=== PATIENT | female | born 1945 | race Caucasian/White ===

== ENCOUNTER 2016-12-01 09:06 | Inpatient (IN) | payer OTHER ==
[2016-12-01] VITALS (63 sets, daily range): BP systolic 81–189; BP diastolic 24–160; PULSE 53–70; TEMP 34–37.7; O2SAT 93–100; BMI 39.0
[~2016-12-01] VITALS: Ht 170.2 cm; Wt 105.8 kg
[~2016-12-01 09:06] MED LIST changes: -AMIO200T4 PO; -B-CO1CAP17 PO; -CRD200 PO; -ESCI1TAB6 PO; -FURO20TA PO; -INSDGIPEN SC; -MIRT1TAB27 PO; -OSEL30CA PO; -PRLSR20 PO; -ROPI2TAB6 PO; -SPRIN/30 INH; -TPRSR25 PO; -UMEC1INH INH
[2016-12-01] MEDS ORDERED: SODIUM CHLORIDE 0.9% 500ML 500 ML IV STA (09:27)
[2016-12-01 09:38] LABS: BASO % 0.2 %; BASO ABS # 0.02 K/uL (0-0.2); COMPLETE YES; EOS % 0.8 %; HEMATOCRIT 37.6 % (37-47); IG% 0.4 %; LYMPH % 5.8 %; LYMPH ABS # 0.76 K/uL (1.2-3.4); MEAN CELL VOLUME 103.6 fL (80-100); MEAN CORPUSCULAR HEMOGLOBIN 32.2 pg (25-34); MEAN CORPUSCULAR HGB CONC 31.1 g/dl (32-36); MEAN PLATELET VOLUME 12.1 fL (7.4-10.4); MONO % 3.5 %; NEUT % 89.3 %; PLATELET COUNT 183 K/uL (130-400); RED BLOOD COUNT 3.63 M/uL (4.2-5.4); WHITE BLOOD COUNT 13.12 K/uL (4.8-10.8)
--- NOTE | 2016-12-01 09:43 | DIAGNOSTIC IMAGING REPORT ---
CHEST ONE VIEW PORTABLE CLINICAL HISTORY: Shortness of breath. Unresponsive. COMPARISON STUDY: Chest radiograph October 23, 2016. FINDINGS: Moderate cardiomegaly is unchanged. This extensive atherosclerotic calcification of the thoracic aorta. No pneumothorax is present. There are suspected small bilateral pleural effusions. Bilateral perihilar airspace opacities have developed. IMPRESSION: Interval development of bilateral perihilar opacities. Pulmonary edema is favored although bilateral pneumonia could appear similar. Electronically signed by: Charlie Hayden M.D. 12/01/2016 9:41 AM Dictated Date/Time: 12/01/2016 9:40 AM
[2016-12-01 09:46] LABS: INR 1.1 (0.9-1.1); PARTIAL THROMBOPLASTIN RATIO 1.1; PROTHROMBIN TIME (PATIENT) 11.3 SECONDS (9.0-12.0)
--- NOTE | 2016-12-01 09:47 | EMERGENCY ROOM VISIT NOTE ---
History Report prepared by Benito: Fran Henao Under the Supervision of: Dr. Rosy Lopez D.O. First contact with patient: 09:08 Stated Complaint: UNRESPONSIVE History of Present Illness The patient is a 71 year old female who presents to the Emergency Room via ALS after being found unresponsive at [facility]. The patient was woken up for her dialysis treatment that she was scheduled for today when she kept saying she felt lethargic. Per nursing staff, they noted that she was awake but wasn't talking much, seemed tired, and didn't want to eat. They laid her down to take a nap before dialysis when they noticed a change in her breathing. Her pulse ox at that time was 40% and the patient began to hyperventilate. They put her on a non-rebreather mask and an AED and her stats began to improve. They called Dr. Jay and discussed sending her to the hospital eventually, but after this episode they called the ambulance immediately. Per staff and EMS, the patient was unresponsive and has been making a persistent gurgling noise. Per EMS, the patient's sugar was 140 when she was en route to the ED. The patient's HPI is limited due to unresponsiveness. Source of History: EMS History Limited By: other (unresponsiveness) Onset: 5 hours ago Position: other (global) Note: Other associated symptoms: gurgling noise Review of Systems The ROS is limited due to unresponsiveness. Past Medical & Surgical Medical Problems: (1) Altered mental status (2) CAD (coronary artery disease) (3) Cellulitis of left lower extremity without foot (4) COPD (chronic obstructive pulmonary disease) (5) Depression (6) Diabetes mellitus type 2 in obese (7) Diastolic CHF (8) Dyslipidemia (9) Elevated troponin (10) End stage renal disease (11) End-stage renal disease on hemodialysis (12) ESRD (end stage renal disease) (13) Gout (14) HTN (hypertension) (15) Hyperkalemia (16) Hypothyroidism (17) Loss of consciousness (18) PAF (paroxysmal atrial fibrillation) (19) Pneumonia (20) Recurrent epistaxis (21) Sepsis (22) Syncope (23) Syncope (24) UTI (urinary tract infection) Surgical Problems: (1) bilat ankle surgery (2) Hernia, abdominal (3) History of appendectomy (4) Nasal septoplasty (5) Repair of rotator cuff by suture (6) right elbow surgery Family History Cancer Heart disease Hypertension Social History Smoking Status: Former Smoker Alcohol Use: none Drug Use: none Marital Status: Housing Status: intermediate Occupation Status: retired, disabled Current/Historical Medications Scheduled Allopurinol (Zyloprim), 100 MG PO DAILY Amino Acids (Periflex Lq Pku), 30 ML PO BID Aspirin (Aspirin 81), 81 MG PO DAILY Atorvastatin (Lipitor), 40 MG PO HS Calcium Carbonate (Tums), 500 MG PO HS Carvedilol (Coreg), 6.25 MG PO BID Clopidogrel (Plavix), 75 MG PO DAILY Docusate Sodium (Docusate Sodium), 100 MG PO BID Ergocalciferol (Vitamin D 25681 Unit), 50,000 UNIT PO WK Escitalopram (Lexapro), 10 MG PO HS Furosemide (Lasix), 30 MG PO BID Gabapentin (Neurontin), Unknown Dose PO Q8 Guaifenesin La (Guaifenesin Er), 600 MG PO Q12H Hydralazine Hcl (Apresoline), 50 MG PO TID Insulin Glargine (Lantus Solostar), 8 UNITS SC Q12 Insulin Lispro (Humalog), SC ACHS Levothyroxine Sodium (Synthroid), 75 MCG PO DAILY Omeprazole (Prilosec), 2 CAP PO DAILY Oseltamivir Phosphate (Tamiflu), 2 CAP PO 3XWK Polyethylene Glycol 3350 (Miralax), 17 GM PO BID Prednisone Tab (Prednisone), 10 MG PO DAILY Psyllium (Metamucil), 2 CAP PO TID Ropinirole (Requip), 2 MG PO HS Sevelamer Carbonate (Renvela), 1,600 MG PO HS Sevelamer Carbonate (Renvela), 3,200 MG PO TIDM Tiotropium [place] (Spiriva Handihaler), 1 CAP INH DAILY Vitamin B Cmplx/Vitc/Folic Ac (Nephrocaps), 1 CAP PO DAILY Scheduled PRN Acetaminophen (Tylenol), 650 MG PO Q6H PRN for Pain or Fever Albuterol Sulfate (Albuterol Sulfate), 1 VIAL NEB Q6H PRN for SOB/Wheezing Dextrose (Diabetic Use) (Insta-Glucose), 1 APPLN PO UD PRN for HYPOGLYCEMIA PROTOCOL Glucagon (Glucagon Emergency Kit), 1 APPLN IM UD PRN for HYPOGLYCEMIA PROTOCOL Ondansetron Hcl (Zofran), 4 MG PO Q6H PRN for Nausea or Vomiting Oxygen (Oxygen), 2 LITERS NA UD PRN for SOB/RESPIRATORY DISTRESS Allergies Coded Allergies: Amoxicillin (Verified Allergy, Intermediate, HIVES, 10/26/16) HAS TOLERATED CEFEPIME, KEFLEX, AND ROCEPHIN IN PAST ADMISSIONS Clavulanic Acid (Verified Allergy, Intermediate, HIVES, 10/26/16) hives NSAIDs (Unverified Allergy, Unknown, UNKNOWN, 10/26/16) JARET Inhibitors (Verified Adverse Reaction, Unknown, HYPERKALEMIA, 10/26/16 ) 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 Physical Exam Vital Signs Date Time Temp Pulse Resp B/P Pulse Ox O2 Delivery O2 Flow Rate FiO2 12/01/16 12:56 53 12/01/16 12:55 54 17 91/64 100 BiPAP 12/01/16 12:44 53 18 76/50 98 BiPAP 12/01/16 12:30 53 16 101/52 98 BiPAP 12/01/16 11:40 52 18 99/54 88 BiPAP 12/01/16 11:25 50 19 74/52 94 BiPAP 12/01/16 11:15 50 20 79/45 95 BiPAP 12/01/16 11:00 49 21 91/51 97 BiPAP 12/01/16 10:52 50 20 70/29 95 BiPAP 12/01/16 10:40 53 93 60 12/01/16 10:40 50 19 81/38 94 12/01/16 10:35 51 20 94 12/01/16 10:33 BiPAP 12/01/16 10:31 80 18 78/36 95 Nasal Cannula 2.0 12/01/16 10:20 58 19 86/47 94 12/01/16 10:00 80/41 12/01/16 09:51 57 19 93 12/01/16 09:45 59 20 75/51 92 Nasal Cannula 2.0 12/01/16 09:45 75/57 12/01/16 09:43 75/51 12/01/16 09:36 56 20 90 12/01/16 09:29 58/37 12/01/16 09:25 34.1 57 16 75/33 94 Nasal Cannula 2.0 12/01/16 09:24 75/33 12/01/16 09:22 93 Nasal Cannula 2.0 12/01/16 09:21 58 20 93 12/01/16 09:16 61 12/01/16 09:12 70/35 12/01/16 09:10 66 23 70/35 88 Room Air Physical Exam GENERAL: Appears obtunded, Gurgling respirations, Won't open eyes but wakes to loud, verbal, and painful stimuli, will not follow commands. HEENT: Head - normocephalic and atraumatic Pupils are equal, round, 3 mm and sluggishly reactive to light. Extraocular eye muscles are intact, and sclera are anicteric. Nose - moist nasal mucosa without discharge. Mouth - moist buccal mucosa. Oropharynx is nonerythematous and there is no tonsillar exudate or edema noted. Neck: Supple Heart: Bradycardic rate and regular rhythm. There is a normal S1 and S2 with no murmurs, clicks, or gallops appreciated. Lungs: Diffuse rales in all capellan. Abdomen: Moderate distention, periumbilical hernia that is easily reduced. There is no guarding, rigidity, or rebound noted. Extremities: No evidence of cyanosis, clubbing, 1 plus edema bilaterally. Peripheral pulses were thready. Skin: warm and dry with good turgor and no rashes. Medical Decision & Procedures ER Provider Diagnostic Interpretation: X-ray results as stated below per interpretation by the radiologist and reviewed by me: CHEST ONE VIEW PORTABLE CLINICAL HISTORY: Shortness of breath. Unresponsive. COMPARISON STUDY: Chest radiograph October 23, 2016. FINDINGS: Moderate cardiomegaly is unchanged. This extensive atherosclerotic calcification of the thoracic aorta. No pneumothorax is present. There are suspected small bilateral pleural effusions. Bilateral perihilar airspace opacities have developed. IMPRESSION: Interval development of bilateral perihilar opacities. Pulmonary edema is favored although bilateral pneumonia could appear similar. Electronically signed by: Charlie Hayden M.D. 12/01/2016 9:41 AM Dictated Date/Time: 12/01/2016 9:[address]AST CT DOSE: 1074.96 mGy.cm HISTORY: unresponsive TECHNIQUE: Multiaxial CT images of the head were performed without the use of intravenous contrast. Automated exposure control was utilized for this study. Comparison: Head CT 10/23/2016. Findings: Chronic complete opacification of the left maxillary sinus with hyperdense material. There are few opacified bilateral mastoid air cells, unchanged. Nasal septal defect is again noted. The calvarium and skull base are intact. There is no mass, hematoma, midline shift, acute infarct. White matter hypodensity is nonspecific but suggestive of microvascular ischemic change. The ventricles and sulci demonstrate mild age-related involutional changes. Small old lacunar infarcts within the cerebellar hemispheres remain unchanged. Impression: No significant change compared to the prior study. No acute intracranial abnormality. Electronically signed by: Bo Argueta M.D. 12/01/2016 10:24 AM Dictated Date/Time: 12/01/2016 10:21 AM CHEST ONE VIEW PORTABLE HISTORY: Central line placement COMPARISON: Chest 12/01/2016. FINDINGS: Right jugular central venous catheter terminates in the expected location of the SVC. No pneumothorax. Cardiomegaly and bilateral perihilar airspace opacities persist. Suspect a trace left pleural effusion. Calcified thoracic aorta is again noted. IMPRESSION: 1. The right jugular central venous catheter terminates at the expected location of the SVC. No pneumothorax. 2. Cardiomegaly and bilateral perihilar airspace opacities persist. Electronically signed by: Bo Argueta M.D. 12/01/2016 1:47 PM Dictated Date/Time: 12/01/2016 1:45 PM Laboratory Results 12/01/16 08:48 Red Blood Count 3.63, Mean Corpuscular Volume 103.6, Mean Corpuscular Hemoglobin 32.2, Mean Corpuscular Hemoglobin Concent 31.1, Mean Platelet Volume 12.1, Neutrophils (%) (Auto) 89.3, Lymphocytes (%) (Auto) 5.8, Monocytes (%) ( Auto) 3.5, Eosinophils (%) (Auto) 0.8, Basophils (%) (Auto) 0.2, Neutrophils # ( Auto) 11.72, Lymphocytes # (Auto) 0.76, Monocytes # (Auto) 0.46, Eosinophils # ( Auto) 0.11, Basophils # (Auto) 0.02 12/01/16 08:48 Test 12/01/16 08:48 12/01/16 09:55 12/01/16 10:02 12/01/16 12:30 White Blood Count 13.12 K/uL (4.8-10.8) Red Blood Count 3.63 M/uL (4.2-5.4) Hemoglobin 11.7 g/dL (12.0-16.0) Hematocrit 37.6 % (37-47) Mean Corpuscular Volume 103.6 fL (80-100) Mean Corpuscular Hemoglobin 32.2 pg (25-34) Mean Corpuscular Hemoglobin Concent 31.1 g/dl (32-36) Platelet Count 183 K/uL (130-400) Mean Platelet Volume 12.1 fL (7.4-10.4) Neutrophils (%) (Auto) 89.3 % Lymphocytes (%) (Auto) 5.8 % Monocytes (%) (Auto) 3.5 % Eosinophils (%) (Auto) 0.8 % Basophils (%) (Auto) 0.2 % Neutrophils # (Auto) 11.72 K/uL (1.4-6.5) Lymphocytes # (Auto) 0.76 K/uL (1.2-3.4) Monocytes # (Auto) 0.46 K/uL (0.11-0.59) Eosinophils # (Auto) 0.11 K/uL (0-0.5) Basophils # (Auto) 0.02 K/uL (0-0.2) RDW Standard Deviation 63.4 fL (36.4-46.3) RDW Coefficient of Variation 16.9 % (11.5-14.5) Immature Granulocyte % (Auto) 0.4 % Immature Granulocyte # (Auto) 0.05 K/uL (0.00-0.02) Nucleated RBC Absolute Count (auto) 0.08 K/uL (0-0) Nucleated Red Blood Cells % 0.6 % Prothrombin Time 11.3 SECONDS (9.0-12.0) Prothromb Time International Ratio 1.1 (0.9-1.1) Activated Partial Thromboplast Time 29.4 SECONDS (21.0-31.0) Partial Thromboplastin Ratio 1.1 Anion Gap 16.0 mmol/L (3-11) Est Creatinine Clear Calc Drug Dose 11.2 ml/min Estimated GFR () 7.8 Estimated GFR (Non- 6.8 BUN/Creatinine Ratio 14.9 (10-20) Calcium Level 8.6 mg/dl (8.5-10.1) Total Bilirubin 0.6 mg/dl (0.2-1) Direct Bilirubin 0.1 mg/dl (0-0.2) Aspartate Amino Transf (AST/SGOT) 19 U/L (15-37) Alanine Aminotransferase (ALT/SGPT) 16 U/L (12-78) Alkaline Phosphatase 131 U/L (45-117) Total Creatine Kinase 29 U/L (26-192) Creatine Kinase MB 2.9 ng/ml (0.5-3.6) Creatine Kinase MB Ratio 10.0 (0-3.0) Troponin I 0.033 ng/ml (0-0.045) Pro-B-Type Natriuretic Peptide 19340 pg/ml (0-900) Total Protein 6.6 gm/dl (6.4-8.2) Albumin 2.5 gm/dl (3.4-5.0) Random Cortisol 23.98 mcg/dl Bedside Lactic Acid Venous 2.22 mmol/L (0.90-1.70) Arterial Blood pH 7.18 (7.35-7.45) Arterial Blood Partial Pressure CO2 64 mmHg (35-46) Arterial Blood Partial Pressure O2 49 mm/Hg (80-95) Arterial Blood HCO3 23 mmol/L (19-24) Arterial Blood Oxygen Saturation 75.7 % (90-95) Arterial Blood Base Excess -5.8 mEq/L (-9-1.8) Arterial Blood Gas Delivery 2L John Test POS (POS) Influenza Type A (RT-PCR) Neg for Influ A (NEG) Influenza Type B (RT-PCR) Neg for Influ B (NEG) Date/Time Source Procedure Growth Status 12/01/16 00:00 Nasal MRSA DNA Surveillance Screen - Final Specimen Positive for MRSA by DNA Probe Complete Laboratory results per my review. Medications Administered Medications (Trade) Dose Ordered Sig/Gelacio Route Start Time Stop Time Status Last Admin Dose Admin Sodium Chloride 500 ml @ 999 mls/hr Q31M STAT IV 12/01/16 09:27 12/01/16 09:57 DC 12/01/16 09:40 999 MLS/HR Norepinephrine Bitartrate/ Dextrose (Levophed Inj/ D5W 500ml) 508 ml @ 0 mls/hr Q0M STAT IV 12/01/16 10:27 12/01/16 10:29 DC 12/01/16 10:45 8 MLS/HR Piperacillin Sod/ Tazobactam Sod (Zosyn Iv) 4.5 gm NOW STAT IV 12/01/16 10:28 12/01/16 10:30 DC 12/01/16 10:33 4.5 GM Levofloxacin 750 mg 750 mg NOW ONCE IV 12/01/16 10:30 12/01/16 10:31 DC 12/01/16 12:37 750 MG Vancomycin HCl/ Sodium Chloride (Vancomycin Inj/ Nss 500ml) 540 ml @ 200 mls/hr TODAY@1200 ONCE IV 12/01/16 12:00 12/01/16 14:41 DC 12/01/16 14:23 200 MLS/HR Procedure Medications: Sodium chloride, levophed drip; IV Zosyn; IV Levaquin ECG Indication: other Rate (beats per minute): 59 Rhythm: sinus bradycardia Findings: 1st degree AV block, no acute ischemic change, no ectopy Change: no significant change (when compared to EKG from October 2016) ED Course 0920: Past medical records reviewed. The patient was evaluated emergently in room B1. A complete history and physical exam was performed. 0925: At this time, the counter caser spoke with [facility] and the patient is a full code status. The patient was found to be significantly hypotensive. A septic protocol was performed. A chest x-ray was obtained. The patient does not produce urine. 0927: Ordered NSS 500 ml @ 999 mls/hr IV. She had a second IV lock initiated and labs were drawn as above including blood cultures. 0950: Despite a small fluid bolus, the patient is still hypotensive at this time. She has an elevated lactic acid. The patient was placed on BiPAP 1010: At this time, I discussed the patient's case with [facility] -nephrologyCatalina Cooln and he agreed with pressers. It seems that the patient is most likely suffering from septic shock. This would account for her hypotension. the patient will be started on a Levophed drip. 1025: At this time, the patient was reevaluated. Her rectal temperature was 34. The concern for sepsis increased at this point. The patient was given IV Levaquin and Zosyn. She was getting put on BiPap and given a bear hugger. An ABG was obtained which showed significant respiratory acidosis. 1103: The patient's blood pressure was coming up this time on the pressor. At this time, I discussed the patient's case with Dr. Reina - Certified Travel Counselor EMILY and he agreed to accept the patient for further evaluation. Dr. Reina and I saw the patient bedside together. The patient was more responsive to Dr. Reina at this time then she was to myself earlier. He asked the patient if she wanted an A-Line and she nodded ,"yes," and he asked if she wanted to be intubated to which she shook her head, "no." 1305: At this time, I discussed the patient's case with Dr. Nguyen - Hospitalist EMILY and he agreed to place and the admission order Medical Decision The patient is a 71 year old female who presents to the ED after being found unresponsive. Differential diagnosis includes hypercarbic respiratory failure, metabolic encephalopathy, congestive heart failure, intracranial process, hypoglycemia. Labs: White count 13.1, hemoglobin 11.7, lactic 2.2., BNPU 23034, troponin 0.033 , normal LFTs, BUN 87, creatine 5.8, potassium 4, normal coags, pH 7.18 PCO2 64 , PO2 49, bicarbonate 23. Suggestive of significant respiratory acidosis. The patient has previous episodes of unresponsiveness over the past couple of years. However, the patient is fluid overloaded requiring dialysis however she is hypotensive. I believe she may be suffering from septic shock as a result of bilateral pulmonary opacities which could be consistent with pneumonia. She has a mildly elevated white blood cell count, she's hypothermic, and she has an elevated lactic acid. The patient is currently on antibiotics and pressors. She is receiving BiPAP at this time. Dr. Reina is at the bedside placing in a line. The patient will be admitted to the ICU. Consults Time Called: 1005 Consulting Physician: Dr. Palumbo - Internal Medicine Darlene Returned Call: 1012 At this time, I discussed the patient's case with Dr. Palumbo and he agreed with pressers. Additional Consults: Time Called: 1055 Consulted Physician: Dr. Reina Returned Call: 1103 Additional Comments: At this time, I discussed the patient's case with Dr. Reina - Certified Travel Counselor [facility] [place] and he agreed to accept the patient for further evaluation. Dr. Reina and I saw the patient bedside together. The patient was more responsive to Dr. Reina at this time then she was to myself earlier. He asked the patient if she wanted an A-Line and she said ,"yes," and he asked if she wanted to be intubated to which she replied, "no." Time Called: 1300 Consulted Physician: Dr. Nguyen - Hospitalist [facility] – [place] Returned Call: 1305 Additional Comments: At this time, I discussed the patient's case with Dr. Nguyen and he agreed to accept the patient for further evaluation. Impression Primary Impression: Respiratory failure Additional Impression: Sepsis Critical Care I have personally spent greater than 75 minutes of critical care time in the direct management of this patient. This includes bedside care, interpretation of diagnostic studies, and testing, discussion with consultants, patient, and family members, and other required patient management activities. This 75 minutes is in excess of all separately billable procedures. Scribe Attestation The scribe's documentation has been prepared under my direction and personally reviewed by me in its entirety. I confirm that the note above accurately reflects all work, treatment, procedures, and medical decision making performed by me. Departure Information Dispostion Being Evaluated By Hospitalist Referrals [facility] (PCP) Problem Qualifiers
[2016-12-01 09:53] LABS: BUN/CREATININE RATIO 14.9 (10-20); CALCIUM 8.6 mg/dl (8.5-10.1)
[2016-12-01 09:54] LABS: CREATININE 5.8 mg/dl (0.60-1.20)
[2016-12-01] MEDS ORDERED: INSDGIPEN SC (10:07)
[2016-12-01] MEDS ORDERED: FURO20TA PO (10:07)
[2016-12-01] MEDS ORDERED: PRLSR20 PO (10:07)
[2016-12-01] MEDS ORDERED: B-CO1CAP17 PO (10:07)
[2016-12-01] MEDS ORDERED: SPRIN/30 INH (10:07)
[2016-12-01] MEDS ORDERED: OSEL30CA PO (10:07)
[2016-12-01] MEDS ORDERED: ROPI2TAB6 PO (10:07)
[2016-12-01] MEDS ORDERED: SEVE800T7 PO (10:12)
[2016-12-01 10:25] LABS: ARTERIAL BLD GAS O2 SATURATION 75.7 % (90-95); ARTERIAL BLOOD GAS BASE EXCESS -5.8 mEq/L (-9-1.8); ARTERIAL BLOOD GAS HCO3 23 mmol/L (19-24); ARTERIAL BLOOD GAS PO2 49 mm/Hg (80-95)
--- NOTE | 2016-12-01 10:26 | DIAGNOSTIC IMAGING REPORT ---
HEAD CT NONCONTRAST CT DOSE: 1074.96 mGy.cm HISTORY: unresponsive TECHNIQUE: Multiaxial CT images of the head were performed without the use of intravenous contrast. Automated exposure control was utilized for this study. Comparison: Head CT 10/23/2016. Findings: Chronic complete opacification of the left maxillary sinus with hyperdense material. There are few opacified bilateral mastoid air cells, unchanged. Nasal septal defect is again noted. The calvarium and skull base are intact. There is no mass, hematoma, midline shift, acute infarct. White matter hypodensity is nonspecific but suggestive of microvascular ischemic change. The ventricles and sulci demonstrate mild age-related involutional changes. Small old lacunar infarcts within the cerebellar hemispheres remain unchanged. Impression: No significant change compared to the prior study. No acute intracranial abnormality. Electronically signed by: Bo Argueta M.D. 12/01/2016 10:24 AM Dictated Date/Time: 12/01/2016 10:21 AM
[2016-12-01 10:27] LABS: ALLEN TEST POS (POS); O2 ADMINISTRATION 2L
[2016-12-01] MEDS ORDERED: NOREPINEPHRINE BIT INJ 8 MG in DEXTROSE 5% 500ML 500 ML IV STA (10:27)
[2016-12-01] MEDS ORDERED: PIPERACILLIN/TAZOBACTAM 4.5 GM/100ML D5W IV STA (10:28)
[2016-12-01 10:29] LABS: ARTERIAL BLOOD GAS pH 7.18 (7.35-7.45)
[2016-12-01] MEDS ORDERED: LEVAQUIN 750MG / 150ML D5W IV ONE (10:30)
[2016-12-01] MEDS ORDERED: VANCOMYCIN INJ 2,000 MG in SODIUM CHLORIDE 0.9% 250ML 250 ML IV STA (11:08)
[2016-12-01] MEDS ORDERED: VANCOMYCIN INJ 2,000 MG in SODIUM CHLORIDE 0.9% 500ML 500 ML IV ONE (12:00)
--- NOTE | 2016-12-01 13:49 | DIAGNOSTIC IMAGING REPORT ---
CHEST ONE VIEW PORTABLE HISTORY: Central line placement COMPARISON: Chest 12/01/2016. FINDINGS: Right jugular central venous catheter terminates in the expected location of the SVC. No pneumothorax. Cardiomegaly and bilateral perihilar airspace opacities persist. Suspect a trace left pleural effusion. Calcified thoracic aorta is again noted. IMPRESSION: 1. The right jugular central venous catheter terminates at the expected location of the SVC. No pneumothorax. 2. Cardiomegaly and bilateral perihilar airspace opacities persist. Electronically signed by: Bo Argueta M.D. 12/01/2016 1:47 PM Dictated Date/Time: 12/01/2016 1:45 PM
--- NOTE | 2016-12-01 14:08 | History and Physical ---
History & Physical Date & Time of Service: Dec 01, 2016 at 13:44 Chief Complaint: Unresponsive Primary Care Physician: Charity Michael History of Present Illness Source: patient, hospital records Ms. Colmenares is a 71yo lady with the below listed history who presented to the ED this morning after being [facility] unresponsive at her [facility]. Apparently she complained of not feeling well this morning, went for a nap and was later found in her room unresponsive. Her initial work up in the ED included an ABG showing pH 7.18, pCO2 64, and pO2 49 while on 2lpm oxygen. CXR shows bilateral perihilar opacities that Radiology is reading as favoring pulmonary edema, though could also be bilateral pneumonia. She was also noted to be hypotensive and has been started on vasopressors. She was evaluated by CCM in the ED and started on empiric broad spectrum abx and is being admitted to the ICU for further management. Past Medical/Surgical History Medical Problems: (1) CAD (coronary artery disease) Permanent Comment: s/p LAD stent 2011 Status: Chronic (2) Cellulitis of left lower extremity without foot Status: Resolved (3) COPD (chronic obstructive pulmonary disease) Permanent Comment: on chronic prednisone Status: Chronic (4) Depression Status: Chronic (5) Diabetes mellitus type 2 in obese Status: Chronic (6) Diastolic CHF Permanent Comment: echo 05/31/16 LVEF 55-60% with mild concentric L ventricular hypertrophy Status: Chronic (7) Dyslipidemia Status: Chronic (8) End-stage renal disease on hemodialysis Status: Chronic (9) Gout Status: Chronic (10) HTN (hypertension) Status: Chronic (11) Hyperkalemia Status: Resolved (12) Hypothyroidism Status: Chronic (13) Loss of consciousness Status: Resolved (14) PAF (paroxysmal atrial fibrillation) Status: Chronic (15) Recurrent epistaxis Status: Resolved Surgical Problems: (1) bilat ankle surgery Status: Resolved (2) Hernia, abdominal Status: Resolved (3) History of appendectomy Status: Resolved (4) Nasal septoplasty Status: Resolved (5) Repair of rotator cuff by suture Status: Resolved (6) right elbow surgery Status: Resolved Family History Cancer Heart disease Hypertension Social History Smoking Status: Former Smoker Drug Use: none Marital Status: Housing status: prison Occupational Status: retired, disabled Immunizations History of Influenza Vaccine: Yes Influenza Vaccine Date: Nov 22, 2012 History of Tetanus Vaccine?: UTD Tetanus Immunization Date: Nov 25, 2012 History of Pneumococcal: Yes Pneumococcal Date: Nov 25, 2012 History of Hepatitis B Vaccine: No Multi-Drug Resistant Organisms History of MDRO: Yes Type of MDRO: MRSA Allergies Coded Allergies: Amoxicillin (Verified Allergy, Intermediate, HIVES, 10/26/16) HAS TOLERATED CEFEPIME, KEFLEX, AND ROCEPHIN IN PAST ADMISSIONS Clavulanic Acid (Verified Allergy, Intermediate, HIVES, 10/26/16) hives NSAIDs (Unverified Allergy, Unknown, UNKNOWN, 10/26/16) JARET Inhibitors (Verified Adverse Reaction, Unknown, HYPERKALEMIA, 10/26/16 ) 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 Home Medications Scheduled Allopurinol (Zyloprim), 100 MG PO DAILY Amino Acids (Periflex Lq Pku), 30 ML PO BID Aspirin (Aspirin 81), 81 MG PO DAILY Atorvastatin (Lipitor), 40 MG PO HS Calcium Carbonate (Tums), 500 MG PO HS Carvedilol (Coreg), 6.25 MG PO BID Clopidogrel (Plavix), 75 MG PO DAILY Docusate Sodium (Docusate Sodium), 100 MG PO BID Ergocalciferol (Vitamin D 83971 Unit), 50,000 UNIT PO WK Escitalopram (Lexapro), 10 MG PO HS Furosemide (Lasix), 30 MG PO BID Gabapentin (Neurontin), Unknown Dose PO Q8 Guaifenesin La (Guaifenesin Er), 600 MG PO Q12H Hydralazine Hcl (Apresoline), 50 MG PO TID Insulin Glargine (Lantus Solostar), 8 UNITS SC Q12 Insulin Lispro (Humalog), SC ACHS Levothyroxine Sodium (Synthroid), 75 MCG PO DAILY Omeprazole (Prilosec), 2 CAP PO DAILY Oseltamivir Phosphate (Tamiflu), 2 CAP PO 3XWK Polyethylene Glycol 3350 (Miralax), 17 GM PO BID Prednisone Tab (Prednisone), 10 MG PO DAILY Psyllium (Metamucil), 2 CAP PO TID Ropinirole (Requip), 2 MG PO HS Sevelamer Carbonate (Renvela), 1,600 MG PO HS Sevelamer Carbonate (Renvela), 3,200 MG PO TIDM Tiotropium [place] (Spiriva Handihaler), 1 CAP INH DAILY Vitamin B Cmplx/Vitc/Folic Ac (Nephrocaps), 1 CAP PO DAILY Scheduled PRN Acetaminophen (Tylenol), 650 MG PO Q6H PRN for Pain or Fever Albuterol Sulfate (Albuterol Sulfate), 1 VIAL NEB Q6H PRN for SOB/Wheezing Dextrose (Diabetic Use) (Insta-Glucose), 1 APPLN PO UD PRN for HYPOGLYCEMIA PROTOCOL Glucagon (Glucagon Emergency Kit), 1 APPLN IM UD PRN for HYPOGLYCEMIA PROTOCOL Ondansetron Hcl (Zofran), 4 MG PO Q6H PRN for Nausea or Vomiting Oxygen (Oxygen), 2 LITERS NA UD PRN for SOB/RESPIRATORY DISTRESS Review of Systems Unable to obtain, patient is obtunded. Physical Exam Vital Signs Date Time Temp Pulse Resp B/P Pulse Ox O2 Delivery O2 Flow Rate FiO2 12/01/16 12:56 53 12/01/16 12:55 54 17 91/64 100 BiPAP 12/01/16 12:44 53 18 76/50 98 BiPAP 12/01/16 12:30 53 16 101/52 98 BiPAP 12/01/16 11:40 52 18 99/54 88 BiPAP 12/01/16 11:25 50 19 74/52 94 BiPAP 12/01/16 11:15 50 20 79/45 95 BiPAP 12/01/16 11:00 49 21 91/51 97 BiPAP 12/01/16 10:52 50 20 70/29 95 BiPAP 12/01/16 10:40 53 93 60 12/01/16 10:40 50 19 81/38 94 12/01/16 10:35 51 20 94 12/01/16 10:33 BiPAP 12/01/16 10:31 80 18 78/36 95 Nasal Cannula 2.0 12/01/16 10:20 58 19 86/47 94 12/01/16 10:00 80/41 12/01/16 09:51 57 19 93 12/01/16 09:45 59 20 75/51 92 Nasal Cannula 2.0 12/01/16 09:45 75/57 12/01/16 09:43 75/51 12/01/16 09:36 56 20 90 12/01/16 09:29 58/37 12/01/16 09:25 34.1 57 16 75/33 94 Nasal Cannula 2.0 12/01/16 09:24 75/33 12/01/16 09:22 93 Nasal Cannula 2.0 12/01/16 09:21 58 20 93 12/01/16 09:16 61 12/01/16 09:12 70/35 12/01/16 09:10 66 23 70/35 88 Room Air General Appearance: no apparent distress Eyes: sclerae normal Respiratory/Chest: + pertinent finding (coarse breath sounds bilaterally) Cardiovascular: regular rate, rhythm Abdomen/GI: non tender, soft, + pertinent finding (large ventral hernia present ) Extremities/Musculoskelatal: no pedal edema Neurologic/Psych: + pertinent finding (opens eyes to voice, withdraws from painful stimuli, doesn't answer any questions and quickly falls back asleep) Skin: + pertinent finding (cool and dry) Diagnostics Laboratory Results Results Past 24 Hours Test 12/01/16 08:48 12/01/16 09:55 12/01/16 10:02 12/01/16 12:30 Range/Units White Blood Count 13.12 4.8-10.8 K/uL Red Blood Count 3.63 4.2-5.4 M/uL Hemoglobin 11.7 12.0-16.0 g/dL Hematocrit 37.6 37-47 % Mean Corpuscular Volume 103.6 80-100 fL Mean Corpuscular Hemoglobin 32.2 25-34 pg Mean Corpuscular Hemoglobin Concent 31.1 32-36 g/dl Platelet Count 183 130-400 K/uL Mean Platelet Volume 12.1 7.4-10.4 fL Neutrophils (%) (Auto) 89.3 % Lymphocytes (%) (Auto) 5.8 % Monocytes (%) (Auto) 3.5 % Eosinophils (%) (Auto) 0.8 % Basophils (%) (Auto) 0.2 % Neutrophils # (Auto) 11.72 1.4-6.5 K/uL Lymphocytes # (Auto) 0.76 1.2-3.4 K/uL Monocytes # (Auto) 0.46 0.11-0.59 K/uL Eosinophils # (Auto) 0.11 0-0.5 K/uL Basophils # (Auto) 0.02 0-0.2 K/uL RDW Standard Deviation 63.4 36.4-46.3 fL RDW Coefficient of Variation 16.9 11.5-14.5 % Immature Granulocyte % (Auto) 0.4 % Immature Granulocyte # (Auto) 0.05 0.00-0.02 K/uL Nucleated RBC Absolute Count (auto) 0.08 0-0 K/uL Nucleated Red Blood Cells % 0.6 % Prothrombin Time 11.3 9.0-12.0 SECONDS Prothromb Time International Ratio 1.1 0.9-1.1 Activated Partial Thromboplast Time 29.4 21.0-31.0 SECONDS Partial Thromboplastin Ratio 1.1 Sodium Level 133 136-145 mmol/L Potassium Level 4.0 3.5-5.1 mmol/L Chloride Level 97 98-107 mmol/L Carbon Dioxide Level 20 21-32 mmol/L Anion Gap 16.0 3-11 mmol/L Blood Urea Nitrogen 87 7-18 mg/dl Creatinine 5.80 0.60-1.20 mg/dl Est Creatinine Clear Calc Drug Dose 11.2 ml/min Estimated GFR () 7.8 Estimated GFR (Non- 6.8 BUN/Creatinine Ratio 14.9 10-20 Random Glucose 96 70-99 mg/dl Calcium Level 8.6 8.5-10.1 mg/dl Total Bilirubin 0.6 0.2-1 mg/dl Direct Bilirubin 0.1 0-0.2 mg/dl Aspartate Amino Transf (AST/SGOT) 19 15-37 U/L Alanine Aminotransferase (ALT/SGPT) 16 12-78 U/L Alkaline Phosphatase 131 45-117 U/L Total Creatine Kinase 29 26-192 U/L Creatine Kinase MB 2.9 0.5-3.6 ng/ml Creatine Kinase MB Ratio 10.0 0-3.0 Troponin I 0.033 0-0.045 ng/ml Pro-B-Type Natriuretic Peptide 27529 0-900 pg/ml Total Protein 6.6 6.4-8.2 gm/dl Albumin 2.5 3.4-5.0 gm/dl Random Cortisol 23.98 mcg/dl Bedside Lactic Acid Venous 2.22 0.90-1.70 mmol/L Arterial Blood pH 7.18 7.35-7.45 Arterial Blood Partial Pressure CO2 64 35-46 mmHg Arterial Blood Partial Pressure O2 49 80-95 mm/Hg Arterial Blood HCO3 23 19-24 mmol/L Arterial Blood Oxygen Saturation 75.7 90-95 % Arterial Blood Base Excess -5.8 -9-1.8 mEq/L Arterial Blood Gas Delivery 2L John Test POS POS Microbiology Results 12/01/16 Blood Culture, Received Pending 12/01/16 Blood Culture, Received Pending Diagnostic Radiology CHEST ONE VIEW PORTABLE CLINICAL HISTORY: Shortness of breath. Unresponsive. COMPARISON STUDY: Chest radiograph October 23, 2016. FINDINGS: Moderate cardiomegaly is unchanged. This extensive atherosclerotic calcification of the thoracic aorta. No pneumothorax is present. There are suspected small bilateral pleural effusions. Bilateral perihilar airspace opacities have developed. IMPRESSION: Interval development of bilateral perihilar opacities. Pulmonary edema is favored although bilateral pneumonia could appear similar. HEAD CT NONCONTRAST CT DOSE: 1074.96 mGy.cm HISTORY: unresponsive TECHNIQUE: Multiaxial CT images of the head were performed without the use of intravenous contrast. Automated exposure control was utilized for this study. Comparison: Head CT 10/23/2016. Findings: Chronic complete opacification of the left maxillary sinus with hyperdense material. There are few opacified bilateral mastoid air cells, unchanged. Nasal septal defect is again noted. The calvarium and skull base are intact. There is no mass, hematoma, midline shift, acute infarct. White matter hypodensity is nonspecific but suggestive of microvascular ischemic change. The ventricles and sulci demonstrate mild age-related involutional changes. Small old lacunar infarcts within the cerebellar hemispheres remain unchanged. Impression: No significant change compared to the prior study. No acute intracranial abnormality. EKG Sinus bradycardia with 1st degree A-V block Voltage criteria for left ventricular hypertrophy Nonspecific ST and T wave abnormality Prolonged QT Abnormal ECG When compared with ECG of 23-OCT-2016 05:10, No significant change No change from prior EKG Impression Assessment and Plan (1) Septic shock Status: Acute Assessment & Plan: This is likely due to HCAP. Broad spectrum abx started pending cultures. Vasopressors per [facility]. (2) Acute hypercapnic respiratory failure Status: Acute Assessment & Plan: In the setting of septic shock and probable HCAP. Patient does not want to be intubated. Will continue with BiPAP. (3) Encephalopathy Status: Acute Assessment & Plan: Metabolic due to sepsis as well as hypercapnea. Continue support care while treating underlying processes. (4) End-stage renal disease on hemodialysis Status: Chronic Assessment & Plan: Dr. Nolan consulted for HD management. (5) CAD (coronary artery disease) Status: Chronic Permanent Comment: s/p LAD stent 2011 Last Edited By: Natacha Bhagat on Jan 13:38 Assessment & Plan: Continue ASA, Plavix. Hold BB in setting of shock. (6) Diabetes mellitus type 2 in obese Status: Chronic Assessment & Plan: Continue Lantus. Start sliding scale. Consult Pharm for glycemic mgmt. (7) COPD (chronic obstructive pulmonary disease) Status: Chronic Permanent Comment: on chronic prednisone Last Edited By: Natacha Bhagat on Jan 30, 2016 13:39 (8) Diastolic CHF Status: Chronic Permanent Comment: echo 05/31/16 LVEF 55-60% with mild concentric L ventricular hypertrophy Last Edited By: Natacha Bhagat on Jan 30, 2016 13:39 (9) HTN (hypertension) Status: Chronic Assessment & Plan: Hold antihypertensives given shock. (10) PAF (paroxysmal atrial fibrillation) Status: Chronic Assessment & Plan: Currently in sinus sindy rhythm. Level of Care Critical Care Res[facility] Status [facility] (Code status on previous admissions had been FULL CODE , but patient apparently refused intubation today.) VTE Prophylaxis VTE Risk Assessment Done? Y/N: Yes Risk Level: High Given or contraindicated: Unfractionated heparin SQ Social Service Consult Lives in Retirement Additional Copies To [facility]
[2016-12-01] MEDS ORDERED: GLUCOSE 40% GEL 15 GM TUBE PO PRN (14:15)
[2016-12-01] MEDS ORDERED: GLUCOSE 10 TABS/TUBE PO PRN (14:15)
[2016-12-01] MEDS ORDERED: GLUCAGON FOR INJ 1 MG VIAL SQ PRN (14:15)
[2016-12-01] MEDS ORDERED: NITROGLYCERIN 0.4 MG SL PER TAB CHARGE SL PRN (14:15)
[2016-12-01] MEDS ORDERED: PHARMACY GLYCEMIC MGMT CONSULT SCH (14:34)
[2016-12-01] MEDS ORDERED: ALBUT/IPRATROP 3MG/0.5MG NEB 3 ML VIAL INH PRN (14:45)
[2016-12-01] MEDS: ALBUT/IPRATROP 3MG/0.5MG NEB 3 ML VIAL INH SCH ×2 (14:52→19:10)
[2016-12-01] MEDS: HEPARIN SOD 5000 UNIT/0.5 ML CARP SQ SCH ×2 (14:54→21:35)
[2016-12-01 14:59] LABS: IPAP 12; ISTAT ARTERIAL BLOOD GAS HCO3 21 meq/L (19-24); ISTAT ARTERIAL BLOOD GAS PCO2 48 mmHg (35-46); ISTAT ARTERIAL BLOOD GAS PO2 195 mmHg (80-95); ISTAT ARTERIAL BLOOD GAS pH 7.23 (7.35-7.45); ISTAT CARBON DIOXIDE 22 mEq/l (24-31); ISTAT DELIVERY SYSTEM BIPAP; ISTAT FIO2 60 %; ISTAT RATE 12; ISTAT SITE Art Line
[2016-12-01 15:02] LABS: INFLUENZA A PCR Neg for Influ A (NEG); INFLUENZA B PCR Neg for Influ B (NEG)
[2016-12-01] MEDS ORDERED: VANCOMYCIN CONSULT ACTIVE PRN (15:15)
[2016-12-01] MEDS ORDERED: PIPERACILL/TAZOBAC CONSULT ACTIVE PRN (15:15)
--- NOTE | 2016-12-01 15:24 | Pharmacy Progress Note ---
Glycemic Control: Progress Nt Date of Service Dec 01, 2016. Scope Glycemic Pharmacist consulted by Dr Sara Michaud on 12/01/16 for glycemic control and to write orders per [facility] inpatient glycemic control protocol. Objective Accuchecks BSG (last 24hrs): Test 12/01/16 08:48 Random Glucose 96 mg/dl (70-99) Laboratory Data (last 24hrs) Test 12/01/16 08:48 Anion Gap 16.0 mmol/L BUN/Creatinine Ratio 14.9 Blood Urea Nitrogen 87 mg/dl Creatinine 5.80 mg/dl Potassium Level 4.0 mmol/L Sodium Level 133 mmol/L White Blood Count 13.12 K/uL Red Blood Count 3.63 M/uL Hemoglobin 11.7 g/dL Hematocrit 37.6 % Mean Corpuscular Volume 103.6 fL Mean Corpuscular Hemoglobin 32.2 pg Mean Corpuscular Hemoglobin Concent 31.1 g/dl Platelet Count 183 K/uL Mean Platelet Volume 12.1 fL Neutrophils (%) (Auto) 89.3 % Lymphocytes (%) (Auto) 5.8 % Monocytes (%) (Auto) 3.5 % Eosinophils (%) (Auto) 0.8 % Basophils (%) (Auto) 0.2 % Neutrophils # (Auto) 11.72 K/uL Lymphocytes # (Auto) 0.76 K/uL Monocytes # (Auto) 0.46 K/uL Eosinophils # (Auto) 0.11 K/uL Basophils # (Auto) 0.02 K/uL Recent Pertinent Medications Outpatient Anti-diabetic Regimen: * Lantus 8 units SQ BID * Humalog per sliding scale * A1c = 6.7 % 09/19/16 -- interpret with caution due to ESRD Risk Factors for Insulin Resistance: * Infection: empiric ABX therapy w/ Vancomycin and Zosyn IV * Pressors: Norepinephrine gtt * Diet: currently NPO Assessment & Plan ASSESSMENT: 12/01/16 * Type 2 diabetic admitted today for unresponsiveness * We have followed this patient on the glycemic control service in the past - will utilize information from prior visits to guide treatment decisions * Most recent BSG 150 despite current stressors * Will utilize basal/bolus SQ strategy initially, however if BSGs climb to > 200 would have a low threshold to start an insulin drip given poor absorption/ erratic response to SQ insulin PLAN FOR INPATIENT GLYCEMIC CONTROL: * Lantus 8 units SQ BID - hold if BSG less than 110 * iSTAT Glucose checks while on pressors Q 4 hrs initially * Correction factor 25 mg/dl/unit * Carb ratio 1 unit per 20 grams CHO consumed * Goal range of Low 120 mg/dL - High 160 mg/dL * Please note that the plan above was derived based on current level of insulin resistance and hospital stress. These recommendations are appropriate for inpatient admission only. Plan of care upon discharge will need to be reassessed to avoid potential outpatient hypo/hyperglycemia. Thank you.
[2016-12-01] MEDS: INSULIN ASPART 100 UNITS/ML 3 ML PEN SC SCH ×2 (16:00→20:00)
[2016-12-01] MEDS ORDERED: INSULIN ASPART 100 UNITS/ML 3 ML PEN SC SCH (16:00)
--- NOTE | 2016-12-01 16:17 | Procedure Note ---
Procedure Note Procedure Date Dec 01, 2016. (Jaymie James PA-C) Procedure Description Procedure Name: Right Femoral Arterial Line Insertion Procedure time out: side/site verified, patient ID confirmed, correct procedure Consent obtained: emergent consent implied Time of procedure: 11:00 Performed by: physician machine operator hop picker Indications: diagnostic, therapeutic Contraindications: none Description: Using sterile technique; the left groin was cleaned with a chloro-hexadine scrub. The area was anesthetized with 3cc of lidocaine. Due to hypotensive state the pulse was minimally palpable. With visualization of the femoral artery via ultrasound, a finder needle was then used with approach at a 45* angle until a flash was obtained with direct visualization on ultrasound. The syringe was then removed from the finder needle and using Seldinger technique, there was initially no difficulty passing the guide wire, on the second attempt the guide wire was then passed successfully into the artery and the 12cm catheter was threaded over the guide wire; which was then removed. Arterial blood was seen pulsating from catheter tip and a luer lock valve was attached to the catheter. The A-line catheter was then secured with one stat-lock and covered with a sterile surgical dressing. Pt was reassessed and no evidence of hematoma was appreciated. Pt tolerated the procedure well with no complications. Complications: none Patient tolerated procedure: well Post-procedure vital signs: reviewed and stable (Jaymie James PA-C) Comments: I was physically present for all procedures (Jean Claude Reina, D.O.) Central Line Procedure time out: side/site verified, patient ID confirmed, sterile procedure used Consent obtained: emergent consent implied Time of procedure: 10:30 Performed by: physician machine operator hop picker Indications: poor venous access, central drug admin., CVP monitoring Prep: chlorhexadine prep, sterile drape, sterile procedures used Anesthesia: lidocaine 1% without epi Volume anesthetic (ml's): 3 Central line lumen: triple Central line location: internal jugular (R) Additional details: percutaneous placement, ultrasound guidance, Selinger technique used, line sutured, good blood return CXR: appropriate position, no pneumothorax Complications: none Patient tolerated procedure: well Post-procedure vital signs: reviewed and stable Comments: Consent was unable to be obtained prior to procedure due to pt condition and lack of present POA/Family therefore, line was placed emergently Procedure: Procedure was performed under strict sterile field in O.R. fashion. The right neck and chest were cleaned with chloroprep scrub and the pt was draped in sterile fashion. The internal jugular vein was identified using ultrasound. After anesthetizing the area with 3cc of lidocaine, venous blood was withdrawn after accessing the vein under ultrasound guidance. The syringe was removed and a guide wire was advanced into the introducer needle.The dilator was advanced after being exchanged for the introducer needle. After appropriate dilation was obtained, the dilator was removed and the central catheter was placed over the guide wire using Seldinger technique. The wire was removed and the catheter was sutured at 15cm. A surgical dressing was placed over the catheter with a biofilm shield in place. At the time of the procedure each port was aspirated and then flushed properly. Pt tolerated the procedure well with no complications. Post procedure x-ray was completed, placement was appropriate and no pneumothorax was noted. Dr. Reina was present and observed/assisted in both procedures documented here. (Jaymie James, PA-C)
--- NOTE | 2016-12-01 16:25 | Critical Care Consultation ---
Critical Care Consultation Date of Consultation: Dec 01, 2016. Attending Physician: Mundo Michaud MD Reason for Consultation: acute respiratory failure History of Present Illness This is a 71 yo f ESRD that is presenting to us from [facility] after being found unresponsive. Apparently at 0630 she was found to have a slightly ALOC and a mild fever. They contacted Dr Jay and were advised to wait until the attending doctor could come in to assess the patient as patient has a h/o mild dementia. The patient was originally very fatigued and responding minimally and as patient became more unresponsive the facility decided to call EMS. She was transferred to the ED where she was found to have hypercapnic respiratory failure and hypotensive. Patient was minimally responsive and when asked if she would agree to intubation she denied intubation. She was placed on a Bipap with some improvement in saturations. She was also given zosyn and levaquin in the ED. Vanco was started in ICU. She also was given Levophed for blood pressure control which she responded to. She has a h/o ESRD which she receives dialysis for. She is due for dialysis today. She also has an extensive history which includes COPD, DM, CAD, HTN, PAF and a h/o sepsis. The most recent admission for sepsis was in oct 2016. She was actually found to have E Coli Bacteremia and was treated in [facility] with Daptomycin and Aztreonam. The believed source was from a left lower extremity cellulitis which improved over the course of that admission. The Ecoli was resistant to ampicillin, cipro, levaquin. tobramycin and bactrim. It was sensitive to zosyn however. Past Medical/Surgical History ESRD COPD DM HTN Hyperlipid Mild Dementia Sepsis PAF CAD Family History Cancer Heart disease Hypertension Social History Smoking Status: Former Smoker Smokeless Tobacco Use: No Alcohol Use: none Drug Use: none Marital Status: Housing Status: [facility] Occupation Status: retired, disabled Allergies Coded Allergies: Amoxicillin (Verified Allergy, Intermediate, HIVES, 10/26/16) HAS TOLERATED CEFEPIME, KEFLEX, AND ROCEPHIN IN PAST ADMISSIONS Clavulanic Acid (Verified Allergy, Intermediate, HIVES, 10/26/16) hives NSAIDs (Unverified Allergy, Unknown, UNKNOWN, 10/26/16) JARET Inhibitors (Verified Adverse Reaction, Unknown, HYPERKALEMIA, 10/26/16 ) 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 Home Medications Scheduled Allopurinol (Zyloprim), 100 MG PO DAILY Amino Acids (Periflex Lq Pku), 30 ML PO BID Aspirin (Aspirin 81), 81 MG PO DAILY Atorvastatin (Lipitor), 40 MG PO HS Calcium Carbonate (Tums), 500 MG PO HS Carvedilol (Coreg), 6.25 MG PO BID Clopidogrel (Plavix), 75 MG PO DAILY Docusate Sodium (Docusate Sodium), 100 MG PO BID Ergocalciferol (Vitamin D 68576 Unit), 50,000 UNIT PO WK Escitalopram (Lexapro), 10 MG PO HS Furosemide (Lasix), 30 MG PO BID Gabapentin (Neurontin), Unknown Dose PO Q8 Guaifenesin La (Guaifenesin Er), 600 MG PO Q12H Hydralazine Hcl (Apresoline), 50 MG PO TID Insulin Glargine (Lantus Solostar), 8 UNITS SC Q12 Insulin Lispro (Humalog), SC ACHS Levothyroxine Sodium (Synthroid), 75 MCG PO DAILY Omeprazole (Prilosec), 2 CAP PO DAILY Oseltamivir Phosphate (Tamiflu), 2 CAP PO 3XWK Polyethylene Glycol 3350 (Miralax), 17 GM PO BID Prednisone Tab (Prednisone), 10 MG PO DAILY Psyllium (Metamucil), 2 CAP PO TID Ropinirole (Requip), 2 MG PO HS Sevelamer Carbonate (Renvela), 1,600 MG PO HS Sevelamer Carbonate (Renvela), 3,200 MG PO TIDM Tiotropium Falls (Spiriva Handihaler), 1 CAP INH DAILY Vitamin B Cmplx/Vitc/Folic Ac (Nephrocaps), 1 CAP PO DAILY Scheduled PRN Acetaminophen (Tylenol), 650 MG PO Q6H PRN for Pain or Fever Albuterol Sulfate (Albuterol Sulfate), 1 VIAL NEB Q6H PRN for SOB/Wheezing Dextrose (Diabetic Use) (Insta-Glucose), 1 APPLN PO UD PRN for HYPOGLYCEMIA PROTOCOL Glucagon (Glucagon Emergency Kit), 1 APPLN IM UD PRN for HYPOGLYCEMIA PROTOCOL Ondansetron Hcl (Zofran), 4 MG PO Q6H PRN for Nausea or Vomiting Oxygen (Oxygen), 2 LITERS NA UD PRN for SOB/RESPIRATORY DISTRESS Current Inpatient Medications Current Inpatient Medications Medications (Trade) Dose Ordered Sig/Gelacio Route Start Time Stop Time Status Last Admin Dose Admin Albumin Human (Albumin 25%) 12.5 gm TODAY@1430,1530 IV 12/01/16 14:30 12/01/16 18:00 Glucose (Glucose 40% Gel) 15-30 GRAMS 15 GRAMS... UD PRN PO 12/01/16 14:15 12/31/16 14:14 Glucose (Glucose Chew Tab) 4-8 Tablets 4 Tabl... UD PRN PO 12/01/16 14:15 12/31/16 14:14 Dextrose (Dextrose 50% 50ML Syringe) 25-50ML OF 50% DW IV FOR... UD PRN IV 12/01/16 14:15 12/31/16 14:14 Glucagon (Glucagon Inj) 1 mg UD PRN SQ 12/01/16 14:15 12/31/16 14:14 Miscellaneous Information (Consult Glycemic Management Pharmacy) 1 ea UD N/A 12/01/16 14:34 12/31/16 14:33 Heparin Sodium (Porcine) (Heparin Sq 5000 Unit/0.5ml) 5,000 unit Q12 SQ 12/01/16 15:00 12/31/16 14:59 12/01/16 14:54 5,000 UNIT Acetaminophen (Tylenol Tab) 650 mg Q4H PRN PO 12/01/16 14:15 12/31/16 14:14 Nitroglycerin 0.4 mg 0.4 mg UD PRN SL 12/01/16 14:15 12/31/16 14:14 Pantoprazole Sodium/Syringe (Protonix Inj/ Syringe) 10 ml @ 5 mls/min DAILY IV 12/02/16 09:00 01/01/17 08:59 Albuterol/ Ipratropium (Duoneb) 3 ml QIDR INH 12/01/16 16:00 12/31/16 15:59 12/01/16 14:52 3 ML Aspirin (Ecotrin Tab) 81 mg DAILY PO 12/02/16 09:00 01/01/17 08:59 Atorvastatin Calcium (Lipitor Tab) 40 mg HS PO 12/01/16 21:00 12/31/16 20:59 Clopidogrel Bisulfate (plAVix TAB) 75 mg DAILY PO 12/02/16 09:00 01/01/17 08:59 Escitalopram Oxalate (Lexapro Tab) 10 mg HS PO 12/01/16 21:00 12/31/16 20:59 Guaifenesin (Mucinex Contr Rel Tab) 600 mg Q12 PO 12/01/16 21:00 12/31/16 20:59 Insulin Glargine (Lantus Solostar Pen) 0 units if BSG less than 11... Q12 SC 12/01/16 21:00 12/31/16 20:59 Levothyroxine Sodium (Synthroid Tab) 75 mcg DAILYBB PO 12/02/16 06:00 01/01/17 05:59 Albuterol/ Ipratropium (Duoneb) 3 ml Q2R PRN INH 12/01/16 14:45 12/31/16 14:44 Vancomycin HCl (Consult) 1 ea UD PRN N/A 12/01/16 15:15 12/31/16 15:14 Piperacillin Sod/ Tazobactam Sod 1 ea 1 ea UD PRN N/A 12/01/16 15:15 12/31/16 15:14 Norepinephrine Bitartrate/ Dextrose (Levophed Inj/ D5W 500ml) 508 ml @ 0 mls/hr Q0M PRN IV 12/01/16 15:15 12/31/16 15:14 Insulin Aspart (novoLOG ASPART) SLIDING SCALE If C... Q4 SC 12/01/16 16:00 12/31/16 15:59 Review of Systems Unable to complete secondary to ALOC Physical Exam Date Time Temp Pulse Resp B/P Pulse Ox O2 Delivery O2 Flow Rate FiO2 12/01/16 15:30 34.9 59 99 100/26 12/01/16 15:29 34.9 59 116/88 100 96/25 12/01/16 15:15 34.7 58 100 103/27 12/01/16 15:14 34.7 57 155/35 100 97/25 12/01/16 15:00 34.6 57 100 123/30 12/01/16 14:59 34.6 56 163/44 100 114/29 12/01/16 14:54 34.5 55 149/47 100 111/27 12/01/16 14:53 55 16 100 BiPAP/CPAP 60 12/01/16 14:45 34.5 54 100 129/31 12/01/16 14:30 34.4 54 100 143/41 12/01/16 14:19 34.0 53 18 104/36 100 BiPAP 60 130/44 12/01/16 14:15 34.4 53 100 102/35 12/01/16 14:08 34.4 56 130/44 100 12/01/16 12:56 53 12/01/16 12:55 54 17 91/64 100 BiPAP 12/01/16 12:44 53 18 76/50 98 BiPAP 12/01/16 12:30 53 16 101/52 98 BiPAP 12/01/16 11:40 52 18 99/54 88 BiPAP 12/01/16 11:25 50 19 74/52 94 BiPAP 12/01/16 11:15 50 20 79/45 95 BiPAP 12/01/16 11:00 49 21 91/51 97 BiPAP 12/01/16 10:52 50 20 70/29 95 BiPAP 12/01/16 10:40 53 93 60 12/01/16 10:40 50 19 81/38 94 12/01/16 10:35 51 20 94 12/01/16 10:33 BiPAP 12/01/16 10:31 80 18 78/36 95 Nasal Cannula 2.0 12/01/16 10:20 58 19 86/47 94 12/01/16 10:00 80/41 12/01/16 09:51 57 19 93 12/01/16 09:45 59 20 75/51 92 Nasal Cannula 2.0 12/01/16 09:45 75/57 12/01/16 09:43 75/51 12/01/16 09:36 56 20 90 12/01/16 09:29 58/37 12/01/16 09:25 34.1 57 16 75/33 94 Nasal Cannula 2.0 12/01/16 09:24 75/33 12/01/16 09:22 93 Nasal Cannula 2.0 12/01/16 09:21 58 20 93 12/01/16 09:16 61 12/01/16 09:12 70/35 12/01/16 09:10 66 23 70/35 88 Room Air General Appearance: + moderate distress Head: normocephalic, atraumatic Eyes: normal inspection ENT: normal ENT inspection Neck: supple, trachea midline Respiratory/Chest: + pertinent finding (coarse breath sounds throughout on expiration, no wheezes could be heard, decreased to bilat bases) Cardiovascular: regular rate, rhythm, no murmur Abdomen/GI: normal bowel sounds, + pertinent finding (obese, large umbilical hernia) Genitourinary - Female: external genitalia normal Extremities/Musculoskelatal: + pertinent finding (stasis dermatitis of bilat LE , ecchymosis noted on bilat LE, no cellulitis) Neurologic/Psych: + pertinent finding Skin: normal color Laboratory Results Last 24 Hours Test 12/01/16 08:48 12/01/16 09:55 12/01/16 10:02 12/01/16 12:30 White Blood Count 13.12 K/uL Red Blood Count 3.63 M/uL Hemoglobin 11.7 g/dL Hematocrit 37.6 % Mean Corpuscular Volume 103.6 fL Mean Corpuscular Hemoglobin 32.2 pg Mean Corpuscular Hemoglobin Concent 31.1 g/dl Platelet Count 183 K/uL Mean Platelet Volume 12.1 fL Neutrophils (%) (Auto) 89.3 % Lymphocytes (%) (Auto) 5.8 % Monocytes (%) (Auto) 3.5 % Eosinophils (%) (Auto) 0.8 % Basophils (%) (Auto) 0.2 % Neutrophils # (Auto) 11.72 K/uL Lymphocytes # (Auto) 0.76 K/uL Monocytes # (Auto) 0.46 K/uL Eosinophils # (Auto) 0.11 K/uL Basophils # (Auto) 0.02 K/uL RDW Standard Deviation 63.4 fL RDW Coefficient of Variation 16.9 % Immature Granulocyte % (Auto) 0.4 % Immature Granulocyte # (Auto) 0.05 K/uL Nucleated RBC Absolute Count (auto) 0.08 K/uL Nucleated Red Blood Cells % 0.6 % Prothrombin Time 11.3 SECONDS Prothromb Time International Ratio 1.1 Activated Partial Thromboplast Time 29.4 SECONDS Partial Thromboplastin Ratio 1.1 Sodium Level 133 mmol/L Potassium Level 4.0 mmol/L Chloride Level 97 mmol/L Carbon Dioxide Level 20 mmol/L Anion Gap 16.0 mmol/L Blood Urea Nitrogen 87 mg/dl Creatinine 5.80 mg/dl Est Creatinine Clear Calc Drug Dose 11.2 ml/min Estimated GFR () 7.8 Estimated GFR (Non- 6.8 BUN/Creatinine Ratio 14.9 Random Glucose 96 mg/dl Calcium Level 8.6 mg/dl Total Bilirubin 0.6 mg/dl Direct Bilirubin 0.1 mg/dl Aspartate Amino Transf (AST/SGOT) 19 U/L Alanine Aminotransferase (ALT/SGPT) 16 U/L Alkaline Phosphatase 131 U/L Total Creatine Kinase 29 U/L Creatine Kinase MB 2.9 ng/ml Creatine Kinase MB Ratio 10.0 Troponin I 0.033 ng/ml Pro-B-Type Natriuretic Peptide 52768 pg/ml Total Protein 6.6 gm/dl Albumin 2.5 gm/dl Random Cortisol 23.98 mcg/dl Bedside Lactic Acid Venous 2.22 mmol/L Arterial Blood pH 7.18 Arterial Blood Partial Pressure CO2 64 mmHg Arterial Blood Partial Pressure O2 49 mm/Hg Arterial Blood HCO3 23 mmol/L Arterial Blood Oxygen Saturation 75.7 % Arterial Blood Base Excess -5.8 mEq/L Arterial Blood Gas Delivery 2L John Test POS Influenza Type A (RT-PCR) Neg for Influ A Influenza Type B (RT-PCR) Neg for Influ B Test 12/01/16 14:43 Blood Gas Sample Site Art Line Bedside Blood Gas pH (LAB) 7.23 Bedside Blood Gas pCO2 (LAB) 48 mmHg Bedside Blood Gas pO2 (LAB) 195 mmHg Bedside Blood Gas HCO3 (LAB) 21 meq/L Bedside Blood Gas Total CO2 22 mEq/l Bedside Blood Gas Base Excess (LAB) -7.0 meq/L Bedside Blood Gas O2 Saturation 100.0 % John Test NA Oxygen Delivery Device BIPAP Bedside Oxygen Rate (breaths/min) 12 Bedside FiO2 60 % Blood Gas IPAP 12 Diagnostic Results CHEST ONE VIEW PORTABLE HISTORY: Central line placement COMPARISON: Chest 12/01/2016. FINDINGS: Right jugular central venous catheter terminates in the expected location of the SVC. No pneumothorax. Cardiomegaly and bilateral perihilar airspace opacities persist. Suspect a trace left pleural effusion. Calcified thoracic aorta is again noted. IMPRESSION: 1. The right jugular central venous catheter terminates at the expected location of the SVC. No pneumothorax. 2. Cardiomegaly and bilateral perihilar airspace opacities persist. [~ rep ct add3]] CHEST ONE VIEW PORTABLE CLINICAL HISTORY: Shortness of breath. Unresponsive. COMPARISON STUDY: Chest radiograph October 23, 2016. FINDINGS: Moderate cardiomegaly is unchanged. This extensive atherosclerotic calcification of the thoracic aorta. No pneumothorax is present. There are suspected small bilateral pleural effusions. Bilateral perihilar airspace opacities have developed. IMPRESSION: Interval development of bilateral perihilar opacities. Pulmonary edema is favored although bilateral pneumonia could appear similar. [~ rep ct add3]] HEAD CT NONCONTRAST CT DOSE: 1074.96 mGy.cm HISTORY: unresponsive TECHNIQUE: Multiaxial CT images of the head were performed without the use of intravenous contrast. Automated exposure control was utilized for this study. Comparison: Head CT 10/23/2016. Findings: Chronic complete opacification of the left maxillary sinus with hyperdense material. There are few opacified bilateral mastoid air cells, unchanged. Nasal septal defect is again noted. The calvarium and skull base are intact. There is no mass, hematoma, midline shift, acute infarct. White matter hypodensity is nonspecific but suggestive of microvascular ischemic change. The ventricles and sulci demonstrate mild age-related involutional changes. Small old lacunar infarcts within the cerebellar hemispheres remain unchanged. Impression: No significant change compared to the prior study. No acute intracranial abnormality. Assessment & Plan 1. Acute hypercapnic failure 2. Acute respiratory acidosis 3. Sepsis secondary to an unknown source 4. Acute on chronic COPD exacerbation 5. Chronic diastolic CHF grade I 6. ESRD 7. HTN 8. anemia of chronic disease 9 Hypothyroid 10. depression NVS - Somnolent - continue to monitor mentation CVS - sinus sindy on EKG however stable now - repeat EKG in am as QTC was 483 - echo considering hypotensive Last echo was 05/11/16 - Mild concentric LVH - Grade I diastolic dysfunction - Aortic sclerosis borderline stenosis - mild MR - Left femoral arterial line - Right central IJ placed - Albumin - levophed for bp control RVS - BiPap as patient is DNI rate 12 fio2 60 - ABG q 6 - CXR in am - continue to monitor for signs of respiratory distress - Duoneb RENAL -Dialysis today - neprho consult- appreciate input - check BMP in the am - strict I&O - daily weights GI NPO ID - Zosyn and Vanc continued - zosyn was sensitive to E Coli in previous bacteremia - consider synergistic antibiotic if no clinical improvement tomorrow - Lactate and procalcitonin - random cortisol was 23 - patient has a h/o ecoli bacteremia which may be a urinary source - may try to cath patient for a potential culture even if ESRD - blood culture pending x2 ENDO - insulin ISS - glycemic consult HEME - hgb 11.7 - will continue to trend cbc DVT PROPHYLAXIS - heparin q12 Resident Physician Supervision Note: Dr. Charles was resident physician during care of patient. I separately evaluated patient and did history and exam. I discussed the case with the resident and generally agree with the findings and plan. Patient is well known to the hospital and has previous admissions of presenting with renal encephalopathy in the past. During my evaluation she was hypotensive however she could respond to complex commands indicating that she was okay with invasive hemodynamic monitoring, however did not want to be intubated. She'll be noted through prior records and discussion with the primary service that she has always requested full aggressive resuscitation in the event of cardiac arrest. Accordingly I do not feel that she is a DO NOT INTUBATE however I would intubate her for clinical condition changes. The leading diagnosis right now is volume overload and uremic encephalopathy, she is hypothermic and there is concern for possible sepsis which will be evaluated. Patient ultimately did receive dialysis and had 1 L of fluid removed. They were able to titrate off her vasoactive medications during that timeframe and she slowly started to improve her mental status. I have personally spent 65 minutes of critical care time in the direct management of this patient. This is a life/limb threatening event. This includes time spent evaluating patient, direct bedside care, chart review, placing orders, interpretation of diagnostic studies, discussion with consultants, patient, and family members, as well as other required patient management activities. This time is exclusive of all separately billable procedures, and teaching time and separate from and in addition to any other critical care service time. Documented By: Jean Claude Reina, DO Additional Copies To [facility]
[2016-12-01] MEDS ORDERED: PHARMACY GLYCEMIC MGMT CONSULT STA (16:26)
[2016-12-01] MEDS: ALBUMIN HUMAN 25% 12.5 GM/50 ML VIAL IV SCH ×2 (16:28→16:29)
--- NOTE | 2016-12-01 16:50 | Pharmacy Progress Note ---
Pharmacy Antibiotic Consult Date of Service: Dec 01, 2016. Pharmacy Dosing Scope Pharmacy is consulted to initiate vancomycin IV and pip/tazo IV dosing therapy, order appropriate labs and adjust drug dose/frequency. Subjective The patient is a 71 year old female admitted on Dec 01, 2016 at 13:04. Objective Height (Feet): 5 Height (Inches): 7.00 Weight (Kilograms): 112.900 Lab Results (24hrs): Laboratory Tests Test 12/01/16 08:48 BUN/Creatinine Ratio 14.9 Blood Urea Nitrogen 87 mg/dl Creatinine 5.80 mg/dl White Blood Count 13.12 K/uL Red Blood Count 3.63 M/uL Hemoglobin 11.7 g/dL Hematocrit 37.6 % Mean Corpuscular Volume 103.6 fL Mean Corpuscular Hemoglobin 32.2 pg Mean Corpuscular Hemoglobin Concent 31.1 g/dl Platelet Count 183 K/uL Mean Platelet Volume 12.1 fL Neutrophils (%) (Auto) 89.3 % Lymphocytes (%) (Auto) 5.8 % Monocytes (%) (Auto) 3.5 % Eosinophils (%) (Auto) 0.8 % Basophils (%) (Auto) 0.2 % Neutrophils # (Auto) 11.72 K/uL Lymphocytes # (Auto) 0.76 K/uL Monocytes # (Auto) 0.46 K/uL Eosinophils # (Auto) 0.11 K/uL Basophils # (Auto) 0.02 K/uL Micro Results: Item Value Date Time MRSA DNA Surveillance Screen - Final Complete 12/01/16 0000 Nasal Specimen Positive for MRSA by DNA Probe Blood Culture Received 12/01/16 0953 Blood Pending Blood Culture Received 12/01/16 0953 Blood Pending Assessment & Plan ASSESSMENT: * Patient is a 71 year-old female admitted with possible HCAP. * Patient has an elevated BMI of 39kg/m2 and is at risk of accumulating the vancomycin. * Patient is also a [place] resident, has DM2, COPD, and ESRD with HD. Patient is currently receiving HD along with his vancomycin dose. * Pharmacy was consulted to dose the vancomycin IV and pip/tazo IV therapies. * Goal trough of 15-20mcg/ml. * MRSA nasal swab and BCx2 were ordered on the patient. PLAN: Vancomycin: * Patient received a loading dose of 2g IV x 1 dose of vancomycin @1423 today. * Will get a random level tomorrow morning and determine dialysis schedule and vancomycin dosing thereafter. Pip/Tazo: * Patient received a 4.5g IV x 1 dose for a load. * Will have patient on extended infusion dosing of 4.5g IV q12h due to HD and BMI>35kg/m2. Pharmacy will continue to follow and will adjust dose/frequency as necessary. Thank you
[2016-12-01] MEDS: PIPERACILL/TAZOBAC IV 4.5 GM in DEXTROSE 5% 100ML IV SCH (18:54)
[2016-12-01 20:53] LABS: IPAP 12; ISTAT ARTERIAL BLOOD GAS HCO3 23 meq/L (19-24); ISTAT ARTERIAL BLOOD GAS PCO2 44 mmHg (35-46); ISTAT ARTERIAL BLOOD GAS PO2 100 mmHg (80-95); ISTAT ARTERIAL BLOOD GAS pH 7.33 (7.35-7.45); ISTAT CARBON DIOXIDE 24 mEq/l (24-31); ISTAT DELIVERY SYSTEM BIPAP; ISTAT FIO2 60 %; ISTAT RATE 12; ISTAT SITE Art Line
[2016-12-01 20:54] LABS: MANUAL MICROSCOPIC REQUIRED? YES; REVIEW REQ? NO; SULFASALICYLIC ACID POS (NEG); URINE APPEARANCE TURBID (CLEAR); URINE SPECIFIC GRAVITY 1.028 (1.000-1.030)
[2016-12-01 20:56] LABS: URINE COLOR YELLOW
[2016-12-01] MEDS: ATORVASTATIN 20 MG TAB PO SCH (21:00)
[2016-12-01] MEDS: ESCITALOPRAM OXALATE 10 MG TAB PO SCH (21:00)
[2016-12-01] MEDS: GUAIFENESIN 600 MG TABCR PO SCH (21:00)
[2016-12-01 21:02] LABS: URINE BACTERIA 3+ (NEG); URINE RBC >30 /hpf (0-4); URINE WBC >30 /hpf (0-5); ZZURINE CULT IF INDIC CATH YES
[2016-12-01] MEDS: INSULIN GLARGINE SOLOSTAR 100 UNITS/ML 3 ML PEN SC SCH (21:34)
[2016-12-02] VITALS (74 sets, daily range): BP systolic 58–174; BP diastolic -7–90; PULSE 64–129; TEMP 37–38.8; O2SAT 92–100
[2016-12-02] MEDS ORDERED: NURSING VERBAL MED ORDER ONE ×2 (02:15→16:15)
[2016-12-02] MEDS ORDERED: ACETAMINOPHEN IV 1000MG/100ML IV ONE (02:30)
[2016-12-02] MEDS: INSULIN ASPART 100 UNITS/ML 3 ML PEN SC SCH ×6 (03:48→20:00)
--- NOTE | 2016-12-02 04:10 | NEPHROLOGY CONSULTATION ---
DATE OF CONSULTATION: 12/01/2016 ATTENDING OF RECORD: Dr. Michaud. REASON FOR CONSULTATION: ESRD. HISTORY OF PRESENT ILLNESS: This is a 71-year-old female who dialyzes at the [facility] on Mondays, Wednesdays, and Fridays. This morning, the patient was found unresponsive with hypoxia with 40% oxygen sats. The patient had an AED placed and was sent to the Emergency Room. In the ER, ABG showed a pH of 7.18, pCO2 of 64, pO2 of 49 and bicarbonate 23 on 2 liters. Last ABG on BIPAP at 60% FiO2 showed a pH of 7.23, pCO2 of 48, pO2 of 195 and a bicarbonate of 21. The patient's sodium level was 133 and potassium was 4. The ProBNP was 15,000. Albumin was 2.5. Lactic acid was 2.2. Random cortisol was 24. INR was 1. White count was elevated at 13,000. Blood cultures are pending. Chest x-ray shows interval development of bilateral perihilar opacities. Pulmonary edema is favored, although bilateral pneumonia could appear similar. Head CT showed no acute intracranial abnormality. Signs of small old lacunar infarcts and involutional changes. The patient is currently on vancomycin, Zosyn, and levofloxacin. Did get a 1 liter fluid bolus. The patient is responsive and states she is not doing too well, but is quite lethargic, requiring a Kita Hugger. REVIEW OF SYSTEMS: Unobtainable at this time secondary to the patient's lethargy and confusion. PAST MEDICAL HISTORY: Heart disease with LAD stent in 2011, COPD, ESRD, type 2 diabetes, diastolic heart failure, gout, hypertension, hypothyroidism, paroxysmal AFib and recurrent epistaxis. PAST SURGICAL HISTORY: Hernia surgery, appendectomy, fistula placement, nasal septoplasty, and LAD stent. FAMILY HISTORY: Significant for cancer. SOCIAL HISTORY: Former smoker. No drugs. No alcohol. and lives in a custodial. HOME MEDICATIONS: Significant for allopurinol 100 mg a day, Coreg 6.25 b.i.d., Lasix 30 mg p.o. b.i.d., insulin, prednisone 10 mg daily, Renvela 3200 mg p.o. t.i.d. with meals, hydralazine 50 mg p.o. t.i.d. and Plavix 75 mg a day. CURRENT MEDICATIONS: Protonix 40 mg IV daily, aspirin 81 mg daily, Plavix 75 mg daily, Synthroid 75 mcg daily, Lipitor 40 mg at night, Lexapro 10 mg at night, Mucinex 600 mg p.o. q. 12 hours, Lantus subQ q. 12 hours, vancomycin, Zosyn, levofloxacin, and heparin 5,000 units subQ q. 12 hours. PHYSICAL EXAMINATION: VITAL SIGNS: Temperature 34.9, pulse 59, blood pressure 116/88 with 99% pulse ox on 60% FiO2 with BiPAP. GENERAL: Awake, but lethargic and minimally responsive. EYES: No scleral icterus. ENT: Moist mucous membranes. NECK: Supple. PULMONARY: Coarse breath sounds. CARDIAC: Regular rate and rhythm. ABDOMEN: Bowel sounds positive. Has a large ventral hernia. EXTREMITIES: Mild edema. NEUROLOGICALLY: Lethargic, arousable, whispers, answers to questions. DERMATOLOGIC: No rash or ulcers noted. LABORATORIES: White count 13,000, H\T\H 11 and 37, and platelet count is 183. ABG shows a pH of 7.23, pCO2 of 48, pO2 of 195, and bicarbonate 21 on 60% FiO2. Sodium level is 133, potassium is 4, chloride is 97, bicarbonate is 20, BUN is 87, creatinine is 5.8, and glucose 96. ProBNP 15,000. Albumin is 2.5. Random cortisol 24. Lactic acid 2.22. INR is 1.1. Flu is negative. Blood cultures are pending. The patient with a central line with cardiomegaly and bilateral perihilar airspace opacities. IMPRESSION AND PLAN: End-stage renal disease: The patient appears floridly volume overloaded and we will plan on dialysis; however, blood pressures are low, requiring pressors. The patient is hypothermic and appears to be in septic shock. Currently, on broad spectrum antibiotics of vancomycin and Zosyn. Blood cultures are pending. We will give 25 grams of albumin at the start of dialysis and try to remove fluid and may need to titrate up pressors while attempting to remove fluid. The patient may have an arrhythmia on dialysis; however, benefits outweigh the risks and need to remove fluid to help with oxygenation. Overall, poor prognosis with a high likelihood of imminent . We will continue to treat supportively requiring a Kita Hugger, broad spectrum antibiotics and emergent dialysis to remove fluid. Continue pressor support. MTDD
[2016-12-02 05:56] LABS: BASO % 0.1 %; BASO ABS # 0.01 K/uL (0-0.2); COMPLETE YES; EOS % 0.3 %; HEMATOCRIT 30.5 % (37-47); IG% 0.3 %; LYMPH ABS # 0.58 K/uL (1.2-3.4); MEAN CELL VOLUME 102.3 fL (80-100); MEAN CORPUSCULAR HEMOGLOBIN 31.9 pg (25-34); MEAN CORPUSCULAR HGB CONC 31.1 g/dl (32-36); MEAN PLATELET VOLUME 11.9 fL (7.4-10.4); MONO % 5.3 %; PLATELET COUNT 135 K/uL (130-400); RED BLOOD COUNT 2.98 M/uL (4.2-5.4); WHITE BLOOD COUNT 14.47 K/uL (4.8-10.8)
[2016-12-02] MEDS: PIPERACILL/TAZOBAC IV 4.5 GM in DEXTROSE 5% 100ML IV SCH ×2 (06:06→17:25)
[2016-12-02 06:30] LABS: BUN/CREATININE RATIO 11.7 (10-20); MAGNESIUM 2.2 mg/dl (1.8-2.4); POTASSIUM 4.3 mmol/L (3.5-5.1)
[2016-12-02] MEDS: ALBUT/IPRATROP 3MG/0.5MG NEB 3 ML VIAL INH SCH ×4 (07:18→20:10)
[2016-12-02] MEDS: INSULIN GLARGINE SOLOSTAR 100 UNITS/ML 3 ML PEN SC SCH ×2 (08:22→20:38)
[2016-12-02] MEDS: PANTOprazole INJ 40 MG in SYRINGE 0 ML IV SCH (08:22)
[2016-12-02] MEDS: NOREPINEPHRINE BIT INJ 8 MG in DEXTROSE 5% 500ML 500 ML IV PRN (08:34)
[2016-12-02 08:40] LABS: ISTAT ARTERIAL BLOOD GAS HCO3 23 meq/L (19-24); ISTAT ARTERIAL BLOOD GAS PCO2 40 mmHg (35-46); ISTAT ARTERIAL BLOOD GAS PO2 55 mmHg (80-95); ISTAT ARTERIAL BLOOD GAS pH 7.37 (7.35-7.45); ISTAT CARBON DIOXIDE 24 mEq/l (24-31); ISTAT DELIVERY SYSTEM Cannula; ISTAT SITE Art Line
[2016-12-02] MEDS: GUAIFENESIN 600 MG TABCR PO SCH ×2 (08:59→20:37)
[2016-12-02] MEDS: HEPARIN SOD 5000 UNIT/0.5 ML CARP SQ SCH ×2 (08:59→20:39)
[2016-12-02] MEDS ORDERED: ALBUMIN HUMAN 25% 12.5 GM/50 ML VIAL IV SCH (09:00)
[2016-12-02 09:22] LABS: HEPATITIS B AB NEG
[2016-12-02] MEDS ORDERED: PERFLUTREN LIPID MICROSPHERE (DEFINITY) IV ONE (11:13)
[2016-12-02] MEDS ORDERED: VANCOMYCIN INJ 500 MG in SODIUM CHLORIDE 0.9% 250ML 250 ML IV ONE (12:00)
[2016-12-02] MEDS: DOXYCYCLINE IV 100 MG in DEXTROSE 5% 100ML 100 ML IV SCH (12:08)
[2016-12-02] MEDS: ASPIRIN 81 MG ECTAB PO SCH (12:08)
[2016-12-02] MEDS: CLOPIDOGREL BISULFATE 75 MG TAB PO SCH (12:09)
[2016-12-02] MEDS: LEVOTHYROXINE 75 MCG TAB PO SCH (12:09)
--- NOTE | 2016-12-02 13:53 | DIAGNOSTIC IMAGING REPORT ---
SINGLE VIEW CHEST CLINICAL HISTORY: Hypoxia. FINDINGS: An AP, portable, upright chest radiograph is compared to study dated 12/01/2016. The examination is degraded by portable technique, large body habitus, and patient rotation. A right internal jugular central venous catheter has been removed. The heart is enlarged and there is atherosclerotic calcification of the thoracic aorta. There is pulmonary vascular congestion with interstitial edema. Layering pleural effusions are identified. No pneumothorax is seen. The skeletal structures are osteopenic. The bony thorax is grossly intact. IMPRESSION: 1. Cardiomegaly with congestive failure and interstitial edema. This is similar in appearance to yesterday. 2. There are layering pleural effusions. Superimposed pneumonia would be impossible to exclude. Radiographic follow-up to resolution is recommended. 3. The right internal jugular central venous catheter has been removed. Electronically signed by: Weston Crum M.D. 12/02/2016 1:51 PM Dictated Date/Time: 12/02/2016 1:49 PM
--- NOTE | 2016-12-02 15:04 | Critical Care Progress Note ---
Critical Care Progress Note Date of Service Dec 02, 2016. ICU Day ICU Day Number: [address] Reina Subjective Significant improvement in uremic encephalopathy. Pleasant denies chest pain shortness of breath. History of dementia, pleasantly demented disoriented to exact place, states the year is 2015 the month is May however she is aware that Balwinder Saleh is the president. Significant events overnight was that the patient pulled out her right internal jugular central venous line. The remaining sutures were removed, there is a small ecchymosis over the site, however there does not appear to be any ill effects from this. Objective Gen. alert: Pleasant HEENT normocephalic atraumatic Cardiovascular S1-S2 Pulmonary scattered Rales bilaterally Abdomen: Soft nondistended nontender Genitourinary: Normal external genitalia Skin: Pale, warm dry intact Assessment & Plan 1. Acute hypercapnic failure 2. Acute respiratory acidosis 3. Sepsis secondary to an unknown source 4. Acute on chronic COPD exacerbation 5. Chronic diastolic CHF grade I 6. ESRD 7. HTN 8. anemia of chronic disease 9 Hypothyroid 10. depression #11 uremic encephalopathy NVS -Uremic encephalopathy improving with dialysis CVS -Sinus rhythm with frequent PVCs, EKG dated 12/02/2016 independently reviewed - echo considering hypotensive Last echo was 05/11/16 - Mild concentric LVH - Grade I diastolic dysfunction - Aortic sclerosis borderline stenosis - mild MR - Left femoral arterial line - Right central IJ placed: Self discontinued - Albumin - levophed for bp control on minimal dose - Attempted to wean her off today however she subsequently lowered her pressures. May be an aspect of relative adrenal insufficiency I will write her for 3 doses of stress dose steroids in attempt to increase her visit responsiveness. - Patient is at risk for discontinuing lines, I have ordered restraints, however I feel that the vasoactive medications may be in short duration and I did not feel that another invasive line as needed at this time as the risks outweigh the benefits, it is understood that there is somewhere between the 2-15 % risk of extravasation, however literature indicates that extravasation's are with relatively minimal complication. RVS Acute hypoxic respiratory failure secondary to volume overload and CHF. Patient has adequate oxygen saturation on supplemental oxygen via nasal cannula RENAL -Dialysis today - neprho consult- appreciate input - check BMP in the am - strict I&O - daily weights GI Sips with meds ID - Zosyn and Vanc continued - zosyn was sensitive to E Coli in previous bacteremia - consider synergistic antibiotic if no clinical improvement tomorrow Escherichia coli urinary tract infection awaiting sensitivities will continue current antibiotic regimen ENDO - insulin ISS - glycemic consult - Hypoglycemia will need to continue to monitor for these events HEME - hgb 11.7 - will continue to trend cbc DVT PROPHYLAXIS - heparin q12 I have personally spent 45 minutes of critical care time in the direct management of this patient. This is a life/limb threatening event. This includes time spent evaluating patient, direct bedside care, chart review, placing orders, interpretation of diagnostic studies, discussion with consultants, patient, and family members, as well as other required patient management activities. This time is exclusive of all separately billable procedures, and teaching time and separate from and in addition to any other critical care service time. Data Medications: Current Inpatient Medications Medications (Trade) Dose Ordered Sig/Gelacio Route Start Time Stop Time Status Last Admin Dose Admin Glucose (Glucose 40% Gel) 15-30 GRAMS 15 GRAMS... UD PRN PO 12/01/16 14:15 12/31/16 14:14 Glucose (Glucose Chew Tab) 4-8 Tablets 4 Tabl... UD PRN PO 12/01/16 14:15 12/31/16 14:14 Dextrose (Dextrose 50% 50ML Syringe) 25-50ML OF 50% DW IV FOR... UD PRN IV 12/01/16 14:15 12/31/16 14:14 Glucagon (Glucagon Inj) 1 mg UD PRN SQ 12/01/16 14:15 12/31/16 14:14 Miscellaneous Information (Consult Glycemic Management Pharmacy) 1 ea UD N/A 12/01/16 14:34 12/31/16 14:33 Heparin Sodium (Porcine) (Heparin Sq 5000 Unit/0.5ml) 5,000 unit Q12 SQ 12/01/16 15:00 12/31/16 14:59 12/01/16 21:35 5,000 UNIT Acetaminophen (Tylenol Tab) 650 mg Q4H PRN PO 12/01/16 14:15 12/31/16 14:14 Nitroglycerin 0.4 mg 0.4 mg UD PRN SL 12/01/16 14:15 12/31/16 14:14 Pantoprazole Sodium/Syringe (Protonix Inj/ Syringe) 10 ml @ 5 mls/min DAILY IV 12/02/16 09:00 01/01/17 08:59 12/02/16 08:22 5 MLS/MIN Albuterol/ Ipratropium (Duoneb) 3 ml QIDR INH 12/01/16 16:00 12/31/16 15:59 12/02/16 11:16 3 ML Aspirin (Ecotrin Tab) 81 mg DAILY PO 12/02/16 09:00 01/01/17 08:59 12/02/16 12:08 81 MG Atorvastatin Calcium (Lipitor Tab) 40 mg HS PO 12/01/16 21:00 12/31/16 20:59 Clopidogrel Bisulfate (plAVix TAB) 75 mg DAILY PO 12/02/16 09:00 01/01/17 08:59 12/02/16 12:09 75 MG Escitalopram Oxalate (Lexapro Tab) 10 mg HS PO 12/01/16 21:00 12/31/16 20:59 Guaifenesin (Mucinex Contr Rel Tab) 600 mg Q12 PO 12/01/16 21:00 12/31/16 20:59 Insulin Glargine (Lantus Solostar Pen) 0 units if BSG less than 11... Q12 SC 12/01/16 21:00 12/31/16 20:59 12/01/16 21:34 8 UNIT Levothyroxine Sodium (Synthroid Tab) 75 mcg DAILYBB PO 12/02/16 06:00 01/01/17 05:59 12/02/16 12:09 75 MCG Albuterol/ Ipratropium (Duoneb) 3 ml Q2R PRN INH 12/01/16 14:45 12/31/16 14:44 Vancomycin HCl (Consult) 1 ea UD PRN N/A 12/01/16 15:15 12/31/16 15:14 Piperacillin Sod/ Tazobactam Sod 1 ea 1 ea UD PRN N/A 12/01/16 15:15 12/31/16 15:14 Norepinephrine Bitartrate/ Dextrose (Levophed Inj/ D5W 500ml) 508 ml @ 0 mls/hr Q0M PRN IV 12/01/16 15:15 12/31/16 15:14 12/02/16 08:34 19.9 MLS/HR Insulin Aspart SLIDING SCALE If C... Q4 SC 12/01/16 16:00 12/31/16 15:59 Piperacillin Sod/ Tazobactam Sod/ Dextrose (Zosyn Iv/D5 100ml) 120 ml @ 30 mls/hr Q12H IV 12/01/16 18:00 12/08/16 17:59 12/02/16 06:06 30 MLS/HR Albumin Human 25 gm 25 gm TODAY@0900 IV 12/02/16 09:00 12/02/16 18:00 12/02/16 08:35 25 GM Doxycycline Hyclate/Dextrose (Vibramycin IV/ D5 100ml) 110 ml @ 50 mls/hr DAILY@1200 IV 12/02/16 12:00 12/08/16 14:11 12/02/16 12:08 50 MLS/HR I & O: 24-Hour Column 12/02/16 08:00 Intake Total 345 ml Output Total 2050 ml Balance -1705 ml Vital Signs: Date Time Temp Pulse Resp B/P Pulse Ox O2 Delivery O2 Flow Rate FiO2 12/02/16 14:00 38.1 83 18 130/33 98 Nasal Cannula 3.0 12/02/16 12:15 37.4 81 113/46 100 12/02/16 12:00 100 Nasal Cannula 4.0 12/02/16 12:00 37.3 82 98/25 100 12/02/16 11:59 37.3 81 108/27 100 12/02/16 11:51 37.0 80 132/51 12/02/16 11:50 37.2 80 102/26 100 12/02/16 11:45 37.2 71 96/20 100 12/02/16 11:45 78 130/55 12/02/16 11:44 37.2 80 98/24 100 12/02/16 11:30 76 114/47 12/02/16 11:30 37.2 76 90/21 100 12/02/16 11:29 37.2 73 87/19 100 12/02/16 11:16 75 18 100 Nasal Cannula 3.0 12/02/16 11:15 37.1 71 130/41 100 12/02/16 11:15 75 126/42 12/02/16 11:14 37.1 75 117/37 100 12/02/16 11:00 74 119/36 12/02/16 11:00 37.1 70 113/34 100 12/02/16 10:59 37.1 73 93/33 100 12/02/16 10:45 37.0 74 134/39 100 12/02/16 10:45 75 140/41 12/02/16 10:44 37.0 74 133/41 100 12/02/16 10:30 75 137/48 12/02/16 10:30 37.0 75 127/38 100 12/02/16 10:29 37.0 75 133/40 100 12/02/16 10:15 75 127/68 12/02/16 10:15 37.0 75 128/33 100 12/02/16 10:15 37.0 75 128/33 100 12/02/16 10:14 37.0 76 133/36 100 12/02/16 10:00 75 131/49 12/02/16 10:00 37.0 75 138/34 100 12/02/16 09:59 37.0 75 134/35 100 12/02/16 09:45 37.0 77 133/34 100 12/02/16 09:45 76 139/86 12/02/16 09:44 37.0 77 139/35 100 12/02/16 09:30 37.1 76 137/33 100 12/02/16 09:30 76 146/49 12/02/16 09:29 37.1 76 145/36 100 12/02/16 09:15 75 148/42 12/02/16 09:15 37.2 75 135/35 100 12/02/16 09:14 37.2 75 138/38 100 12/02/16 09:00 72 140/48 12/02/16 09:00 37.3 73 142/41 100 12/02/16 08:59 37.3 73 123/38 100 12/02/16 08:48 71 134/50 12/02/16 08:47 37.5 71 134/50 100 12/02/16 08:45 37.5 71 112/34 100 12/02/16 08:44 37.5 72 113/37 100 12/02/16 08:36 37.5 71 123/32 99 12/02/16 08:36 37.6 68 123/32 12/02/16 08:30 37.5 70 102/35 99 12/02/16 08:15 37.6 71 78/22 97 12/02/16 08:14 37.6 72 85/26 100 12/02/16 08:00 37.6 70 20 120/38 99 Nasal Cannula 4.0 83/34 12/02/16 08:00 37.8 77 62/20 96 12/02/16 08:00 99 Nasal Cannula 4.0 12/02/16 07:18 66 22 100 Nasal Cannula 4.0 12/02/16 06:29 38.0 67 100 113/26 12/02/16 05:59 38.1 69 100 119/29 12/02/16 05:35 38.2 67 165/90 100 118/30 12/02/16 05:29 38.2 66 100 123/-7 12/02/16 05:20 67 100 50 12/02/16 05:00 38.3 66 100 116/30 12/02/16 04:30 38.3 65 100 102/31 12/02/16 04:29 38.3 64 109/ 100 111/37 12/02/16 04:00 96 BiPAP 50 12/02/16 04:00 38.2 66 98 94/27 12/02/16 03:30 38.2 70 99 113/12/02/16 03:29 38.2 70 126/33 100 114/30 12/02/16 03:00 38.2 71 100 126/31 12/02/16 02:30 38.2 69 100 122/31 12/02/16 02:29 38.2 69 157/32 100 123/31 12/02/16 02:00 38.1 70 100 128/32 12/02/16 02:00 38.1 70 18 128/32 100 12/02/16 00:00 37.7 64 18 127/33 98 113/29 12/02/16 00:00 98 BiPAP 50 12/01/16 23:59 37.7 66 127/33 98 108/28 12/01/16 23:30 37.7 67 99 102/28 12/01/16 23:29 37.7 66 128/47 100 105/28 12/01/16 23:00 37.2 67 20 141/35 97 50 116/30 12/01/16 23:00 37.5 68 99 114/29 12/01/16 22:58 37.5 67 141/35 98 115/29 12/01/16 22:42 68 100 50 12/01/16 22:30 37.4 68 98 107/29 12/01/16 22:29 37.4 69 153/43 99 110/30 12/01/16 22:00 37.3 69 99 120/30 12/01/16 22:00 37.2 69 20 155/42 97 50 115/30 12/01/16 21:59 37.3 69 155/42 100 122/31 12/01/16 21:30 37.2 68 98 118/27 12/01/16 21:29 37.2 68 132/44 98 118/12/01/16 21:00 37.1 66 98 109/27 12/01/16 20:59 37.1 66 145/36 98 105/28 12/01/16 20:30 37.1 68 97 101/27 12/01/16 20:29 37.1 68 134/33 98 105/28 12/01/16 20:14 37.1 70 156/49 98 127/33 12/01/16 20:10 37.1 69 170/160 98 81/24 12/01/16 20:00 98 BiPAP 60 12/01/16 20:00 37.0 69 97 118/27 12/01/16 20:00 37.1 68 20 156/49 98 60 126/31 12/01/16 19:57 37.0 67 189/49 12/01/16 19:30 63 189/49 12/01/16 19:15 63 137/54 12/01/16 19:15 63 19 100 BiPAP/CPAP 60 12/01/16 19:14 63 100 60 12/01/16 19:00 63 138/53 12/01/16 18:45 63 144/55 12/01/16 18:30 64 141/42 12/01/16 18:15 64 151/48 12/01/16 18:15 36.9 63 113/27 97 12/01/16 18:14 36.9 62 114/27 100 12/01/16 18:00 36.9 64 123/29 97 12/01/16 18:00 64 147/47 1/20/17 17:59 36.9 64 124/30 98 12/01/16 17:45 64 165/44 12/01/16 17:45 36.9 63 116/28 97 12/01/16 17:43 36.9 63 165/44 98 12/01/16 17:30 36.7 64 121/29 98 12/01/16 17:30 64 133/68 12/01/16 17:29 36.7 63 121/30 98 12/01/16 17:15 36.6 64 124/31 99 12/01/16 17:15 64 152/45 12/01/16 17:14 36.6 64 125/31 99 12/01/16 17:00 64 152/45 12/01/16 17:00 36.4 63 123/31 99 12/01/16 16:59 36.4 63 125/31 98 12/01/16 16:46 36.0 63 147/44 12/01/16 16:45 64 172/64 12/01/16 16:45 36.1 63 145/34 100 12/01/16 16:44 36.1 63 147/35 100 12/01/16 16:30 35.8 63 145/35 100 12/01/16 16:30 35.8 63 145/35 100 12/01/16 16:30 64 172/62 12/01/16 16:29 35.8 63 145/35 98 12/01/16 16:15 35.6 63 116/29 99 12/01/16 16:14 35.6 62 116/29 99 12/01/16 16:00 35.4 62 126/31 100 12/01/16 16:00 100 BiPAP 60 12/01/16 15:59 35.3 63 126/32 100 12/01/16 15:45 35.2 60 127/31 100 12/01/16 15:44 35.1 61 127/30 100 12/01/16 15:30 34.9 59 99 100/26 12/01/16 15:30 34.9 59 100/26 99 12/01/16 15:29 34.9 59 116/88 100 96/25 12/01/16 15:29 34.9 59 96/25 100 12/01/16 15:15 34.7 58 103/27 100 12/01/16 15:15 34.7 58 100 103/27 12/01/16 15:14 34.7 57 155/35 100 97/25 12/01/16 15:14 34.7 57 97/25 100 12/01/16 15:00 34.6 57 100 123/30 12/01/16 15:00 34.6 57 123/30 100 12/01/16 14:59 34.6 56 163/44 100 114/29 12/01/16 14:59 34.6 56 114/29 100 12/01/16 14:54 34.5 55 149/47 100 111/27 12/01/16 14:54 34.5 55 111/27 100 12/01/16 14:53 55 16 100 BiPAP/CPAP 60 Laboratory Results: Last 24 Hours Test 12/01/16 15:06 12/01/16 20:24 12/01/16 20:41 12/01/16 20:45 Bedside Glucose 150 mg/dl 115 mg/dl Blood Gas Sample Site Art Line Bedside Blood Gas pH (LAB) 7.33 Bedside Blood Gas pCO2 (LAB) 44 mmHg Bedside Blood Gas pO2 (LAB) 100 mmHg Bedside Blood Gas HCO3 (LAB) 23 meq/L Bedside Blood Gas Total CO2 24 mEq/l Bedside Blood Gas Base Excess (LAB) -3.0 meq/L Bedside Blood Gas O2 Saturation 97.0 % John Test NA Oxygen Delivery Device BIPAP Bedside Oxygen Rate (breaths/min) 12 Bedside FiO2 60 % Blood Gas IPAP 12 Lactic Acid Level 1.4 mmol/L Procalcitonin 45.07 ng/mL Test 12/01/16 23:49 12/02/16 03:45 12/02/16 05:30 12/02/16 08:27 Bedside Glucose 103 mg/dl 92 mg/dl White Blood Count 14.47 K/uL Red Blood Count 2.98 M/uL Hemoglobin 9.5 g/dL Hematocrit 30.5 % Mean Corpuscular Volume 102.3 fL Mean Corpuscular Hemoglobin 31.9 pg Mean Corpuscular Hemoglobin Concent 31.1 g/dl Platelet Count 135 K/uL Mean Platelet Volume 11.9 fL Neutrophils (%) (Auto) 90.0 % Lymphocytes (%) (Auto) 4.0 % Monocytes (%) (Auto) 5.3 % Eosinophils (%) (Auto) 0.3 % Basophils (%) (Auto) 0.1 % Neutrophils # (Auto) 13.02 K/uL Lymphocytes # (Auto) 0.58 K/uL Monocytes # (Auto) 0.77 K/uL Eosinophils # (Auto) 0.05 K/uL Basophils # (Auto) 0.01 K/uL RDW Standard Deviation 63.5 fL RDW Coefficient of Variation 17.3 % Immature Granulocyte % (Auto) 0.3 % Immature Granulocyte # (Auto) 0.04 K/uL Sodium Level 137 mmol/L Potassium Level 4.3 mmol/L Chloride Level 101 mmol/L Carbon Dioxide Level 24 mmol/L Anion Gap 12.0 mmol/L Blood Urea Nitrogen 47 mg/dl Creatinine 4.00 mg/dl Est Creatinine Clear Calc Drug Dose 16.7 ml/min Estimated GFR () 12.3 Estimated GFR (Non- 10.6 BUN/Creatinine Ratio 11.7 Random Glucose 86 mg/dl Calcium Level 8.0 mg/dl Magnesium Level 2.2 mg/dl Random Vancomycin Level 19.7 mcg/ml Hepatitis B Surface Antigen NEG Hepatitis B Surface Antibody NEG Blood Gas Sample Site Art Line Bedside Blood Gas pH (LAB) 7.37 Bedside Blood Gas pCO2 (LAB) 40 mmHg Bedside Blood Gas pO2 (LAB) 55 mmHg Bedside Blood Gas HCO3 (LAB) 23 meq/L Bedside Blood Gas Total CO2 24 mEq/l Bedside Blood Gas Base Excess (LAB) -2.0 meq/L Bedside Blood Gas O2 Saturation 88.0 % John Test NA Oxygen Delivery Device Cannula Test 12/02/16 11:58 12/02/16 14:20 Bedside Glucose 68 mg/dl
[2016-12-02] MEDS ORDERED: ACETAMINOPHEN 1000 MG/100 ML IV IV PRN (16:30)
[2016-12-02] MEDS: HYDROCORTISONE IV 100 MG in SYRINGE 0 ML IV SCH (16:35)
--- NOTE | 2016-12-02 17:36 | Hospitalist Progress Note ---
Hospitalist Progress Note Date of Service Dec 02, 2016. Subjective Pt evaluation today including: conversation w/ patient, physical exam, chart review, lab review, review of studies, review of inpatient medication list still confusion, didn't orient to time, but can follow up commands. Objective Vital Signs Date Time Temp Pulse Resp B/P Pulse Ox O2 Delivery O2 Flow Rate FiO2 12/02/16 16:00 99 Nasal Cannula 3.0 12/02/16 16:00 38.8 82 94/26 100 12/02/16 15:58 38.8 82 128/65 99 12/02/16 15:54 38.8 83 99/51 99 12/02/16 15:45 38.8 82 94/24 100 12/02/16 15:30 38.7 80 84/32 98 12/02/16 15:15 38.7 80 86/23 100 12/02/16 15:00 38.7 79 73/23 12/02/16 14:45 38.6 78 85/25 12/02/16 14:42 79 18 92 Nasal Cannula 3.0 12/02/16 14:30 38.4 77 58/17 12/02/16 14:15 38.3 83 113/27 100 12/02/16 14:01 38.1 81 137/43 100 12/02/16 14:00 38.1 83 18 130/33 98 Nasal Cannula 3.0 12/02/16 14:00 38.1 83 113/26 100 12/02/16 12:15 37.4 81 113/46 100 12/02/16 12:00 100 Nasal Cannula 4.0 12/02/16 12:00 37.3 82 98/25 100 12/02/16 11:59 37.3 81 108/27 100 12/02/16 11:51 37.0 80 132/51 12/02/16 11:50 37.2 80 102/26 100 12/02/16 11:45 37.2 71 96/20 100 12/02/16 11:45 78 130/55 12/02/16 11:44 37.2 80 98/24 100 12/02/16 11:30 76 114/47 12/02/16 11:30 37.2 76 90/21 100 12/02/16 11:29 37.2 73 87/19 100 12/02/16 11:16 75 18 100 Nasal Cannula 3.0 12/02/16 11:15 37.1 71 130/41 100 12/02/16 11:15 75 126/42 12/02/16 11:14 37.1 75 117/37 100 12/02/16 11:00 74 119/36 12/02/16 11:00 37.1 70 113/34 100 12/02/16 10:59 37.1 73 93/33 100 12/02/16 10:45 37.0 74 134/39 100 12/02/16 10:45 75 140/41 12/02/16 10:44 37.0 74 133/41 100 12/02/16 10:30 75 137/48 12/02/16 10:30 37.0 75 127/38 100 12/02/16 10:29 37.0 75 133/40 100 12/02/16 10:15 75 127/68 12/02/16 10:15 37.0 75 128/33 100 12/02/16 10:15 37.0 75 128/33 100 12/02/16 10:14 37.0 76 133/36 100 12/02/16 10:00 75 131/49 12/02/16 10:00 37.0 75 138/34 100 12/02/16 09:59 37.0 75 134/35 100 12/02/16 09:45 37.0 77 133/34 100 12/02/16 09:45 76 139/86 12/02/16 09:44 37.0 77 139/35 100 12/02/16 09:30 37.1 76 137/33 100 12/02/16 09:30 76 146/49 12/02/16 09:29 37.1 76 145/36 100 12/02/16 09:15 75 148/42 12/02/16 09:15 37.2 75 135/35 100 12/02/16 09:14 37.2 75 138/38 100 12/02/16 09:00 72 140/48 12/02/16 09:00 37.3 73 142/41 100 12/02/16 08:59 37.3 73 123/38 100 12/02/16 08:48 71 134/50 12/02/16 08:47 37.5 71 134/50 100 12/02/16 08:45 37.5 71 112/34 100 12/02/16 08:44 37.5 72 113/37 100 12/02/16 08:36 37.5 71 123/32 99 12/02/16 08:36 37.6 68 123/32 12/02/16 08:30 37.5 70 102/35 99 12/02/16 08:15 37.6 71 78/22 97 12/02/16 08:14 37.6 72 85/26 100 12/02/16 08:00 37.6 70 20 120/38 99 Nasal Cannula 4.0 83/34 12/02/16 08:00 37.8 77 62/20 96 12/02/16 08:00 99 Nasal Cannula 4.0 12/02/16 07:18 66 22 100 Nasal Cannula 4.0 12/02/16 06:29 38.0 67 100 113/12/02/16 05:59 38.1 69 100 119/29 12/02/16 05:35 38.2 67 165/90 100 118/30 12/02/16 05:29 38.2 66 100 123/-7 12/02/16 05:20 67 100 50 12/02/16 05:00 38.3 66 100 116/30 12/02/16 04:30 38.3 65 100 102/31 12/02/16 04:29 38.3 64 109/ 100 111/37 12/02/16 04:00 96 BiPAP 50 12/02/16 04:00 38.2 66 98 94/27 12/02/16 03:30 38.2 70 99 113/12/02/16 03:29 38.2 70 126/33 100 114/30 12/02/16 03:00 38.2 71 100 126/31 12/02/16 02:30 38.2 69 100 122/31 12/02/16 02:29 38.2 69 157/32 100 123/31 12/02/16 02:00 38.1 70 100 128/32 12/02/16 02:00 38.1 70 18 128/32 100 12/02/16 00:00 37.7 64 18 127/33 98 113/29 12/02/16 00:00 98 BiPAP 50 12/01/16 23:59 37.7 66 127/33 98 108/28 12/01/16 23:30 37.7 67 99 102/28 12/01/16 23:29 37.7 66 128/47 100 105/28 12/01/16 23:00 37.2 67 20 141/35 97 50 116/30 12/01/16 23:00 37.5 68 99 114/29 12/01/16 22:58 37.5 67 141/35 98 115/12/01/16 22:42 68 100 50 12/01/16 22:30 37.4 68 98 107/12/01/16 22:29 37.4 69 153/43 99 110/30 12/01/16 22:00 37.3 69 99 120/30 12/01/16 22:00 37.2 69 20 155/42 97 50 115/30 12/01/16 21:59 37.3 69 155/42 100 122/31 12/01/16 21:30 37.2 68 98 118/12/01/16 21:29 37.2 68 132/44 98 118/12/01/16 21:00 37.1 66 98 109/27 12/01/16 20:59 37.1 66 145/36 98 105/28 12/01/16 20:30 37.1 68 97 101/12/01/16 20:29 37.1 68 134/33 98 105/28 12/01/16 20:14 37.1 70 156/49 98 127/33 12/01/16 20:10 37.1 69 170/160 98 81/24 12/01/16 20:00 98 BiPAP 60 12/01/16 20:00 37.0 69 97 118/27 12/01/16 20:00 37.1 68 20 156/49 98 60 126/31 12/01/16 19:57 37.0 67 189/49 12/01/16 19:30 63 189/49 12/01/16 19:15 63 137/54 12/01/16 19:15 63 19 100 BiPAP/CPAP 60 12/01/16 19:14 63 100 60 12/01/16 19:00 63 138/53 12/01/16 18:45 63 144/55 12/01/16 18:30 64 141/42 12/01/16 18:15 64 151/48 12/01/16 18:15 36.9 63 113/27 97 12/01/16 18:14 36.9 62 114/27 100 12/01/16 18:00 36.9 64 123/29 97 12/01/16 18:00 64 147/47 12/01/16 17:59 36.9 64 124/30 98 12/01/16 17:45 64 165/44 12/01/16 17:45 36.9 63 116/28 97 12/01/16 17:43 36.9 63 165/44 98 12/01/16 17:30 36.7 64 121/29 98 12/01/16 17:30 64 133/68 12/01/16 17:29 36.7 63 121/30 98 Physical Exam General Appearance: no apparent distress Eyes: normal inspection ENT: hearing grossly normal Neck: supple Respiratory/Chest: + wheezing (mild ) Cardiovascular: regular rate, rhythm Abdomen: normal bowel sounds, non tender Extremities: non-tender 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: + disoriented (to time, but know place) Laboratory Results Last 24 Hours Test 12/01/16 20:24 12/01/16 20:41 12/01/16 20:45 12/01/16 23:49 Bedside Glucose 115 mg/dl 103 mg/dl Blood Gas Sample Site Art Line Bedside Blood Gas pH (LAB) 7.33 Bedside Blood Gas pCO2 (LAB) 44 mmHg Bedside Blood Gas pO2 (LAB) 100 mmHg Bedside Blood Gas HCO3 (LAB) 23 meq/L Bedside Blood Gas Total CO2 24 mEq/l Bedside Blood Gas Base Excess (LAB) -3.0 meq/L Bedside Blood Gas O2 Saturation 97.0 % John Test NA Oxygen Delivery Device BIPAP Bedside Oxygen Rate (breaths/min) 12 Bedside FiO2 60 % Blood Gas IPAP 12 Lactic Acid Level 1.4 mmol/L Procalcitonin 45.07 ng/mL Test 12/02/16 03:45 12/02/16 05:30 12/02/16 08:27 12/02/16 11:58 Bedside Glucose 92 mg/dl 68 mg/dl White Blood Count 14.47 K/uL Red Blood Count 2.98 M/uL Hemoglobin 9.5 g/dL Hematocrit 30.5 % Mean Corpuscular Volume 102.3 fL Mean Corpuscular Hemoglobin 31.9 pg Mean Corpuscular Hemoglobin Concent 31.1 g/dl Platelet Count 135 K/uL Mean Platelet Volume 11.9 fL Neutrophils (%) (Auto) 90.0 % Lymphocytes (%) (Auto) 4.0 % Monocytes (%) (Auto) 5.3 % Eosinophils (%) (Auto) 0.3 % Basophils (%) (Auto) 0.1 % Neutrophils # (Auto) 13.02 K/uL Lymphocytes # (Auto) 0.58 K/uL Monocytes # (Auto) 0.77 K/uL Eosinophils # (Auto) 0.05 K/uL Basophils # (Auto) 0.01 K/uL RDW Standard Deviation 63.5 fL RDW Coefficient of Variation 17.3 % Immature Granulocyte % (Auto) 0.3 % Immature Granulocyte # (Auto) 0.04 K/uL Sodium Level 137 mmol/L Potassium Level 4.3 mmol/L Chloride Level 101 mmol/L Carbon Dioxide Level 24 mmol/L Anion Gap 12.0 mmol/L Blood Urea Nitrogen 47 mg/dl Creatinine 4.00 mg/dl Est Creatinine Clear Calc Drug Dose 16.7 ml/min Estimated GFR () 12.3 Estimated GFR (Non- 10.6 BUN/Creatinine Ratio 11.7 Random Glucose 86 mg/dl Calcium Level 8.0 mg/dl Magnesium Level 2.2 mg/dl Random Vancomycin Level 19.7 mcg/ml Hepatitis B Surface Antigen NEG Hepatitis B Surface Antibody NEG Blood Gas Sample Site Art Line Bedside Blood Gas pH (LAB) 7.37 Bedside Blood Gas pCO2 (LAB) 40 mmHg Bedside Blood Gas pO2 (LAB) 55 mmHg Bedside Blood Gas HCO3 (LAB) 23 meq/L Bedside Blood Gas Total CO2 24 mEq/l Bedside Blood Gas Base Excess (LAB) -2.0 meq/L Bedside Blood Gas O2 Saturation 88.0 % John Test NA Oxygen Delivery Device Cannula Test 12/02/16 14:20 12/02/16 16:12 Bedside Glucose 107 mg/dl Assessment and Plan patient is a 71 yo old M with ESRD, COPD, HTN who is presenting to ER from [facility] after being found unresponsive 1 sepsis secondary to UTI or pneumonia: UA showed Escherichia coli, awaiting sensitivities, will continue current antibiotic regimen. chest x ray can't rule out pneumonia. continue IV fluid, try to wean off levophed, monitor BP, f/u culture results f/u ID consult. 2 Acute hypercapnic failure: long history of COPD, consider secondary to COPD exacerbation, underlying pneumonia and fluid overload. continue Douneb, continue antibiotics. 3. ESRD on HD: f/u renal consult 4. Encephalopathy: improving, most secondary to hypercapnia. 5 Hypothyroid: continue home medication DVT prophylaxis: heparin Diet: NPO except medications.
[2016-12-02] MEDS: ESCITALOPRAM OXALATE 10 MG TAB PO SCH (20:37)
[2016-12-02] MEDS: ATORVASTATIN 20 MG TAB PO SCH (20:37)
--- NOTE | 2016-12-02 22:11 | ECHOCARDIOGRAM REPORT ---
*NOTICE TO RECEIVING CONSTITUTION PARTY AGENCY This information is strictly Confidential and protected under [place] law. [place] law prohibits you from making any further disclosure of this information unless further disclosure is expressly permitted by the written consent of the person to whom it pertains or is authorized by law. A general authorization for the release of medical or other information is not sufficient for this purpose. Hospital accepts no responsibility if the information is made available to any other person, INCLUDING THE PATIENT. Interpretation Summary * Name: AMBER CORREA Study Date: 12/02/2016 10:26 AM BP: 116/30 mmHg * Patient Location: .MSICU\S\E105\S\1 HR: 67 * : 1945 (M/d/yyyy) Gender: Female Height: 67 in * Age: 71 yrs Ethnicity: [place] Weight: 248 lb * Ordering Physician: Latrice Charles * Referring Physician: [facility] * Performed By: Prema Rivers RDCS * * Reason For Study: Alteration of consciousness * BSA: 2.2 m2 * -- Conclusions -- * 1. Normal LV size. Mild concentric LVH. * 2. Normal LV systolic function. LVEF 55-60 %. No regional wall motion abnormalities. Grade 2 diastolic dysfunction. * 3. Normal RV size and function. * 4. Calcified, restricted aortic valve with mild aortic stenosis, trace aortic insufficiency. * 5. Trace mitral regurgitation * 6. Normal estimated PA and RA pressures. * 6. Compared with prior study on 05/11/2016: No significant change Procedure Details * A complete two-dimensional transthoracic echocardiogram was performed (2D, M-mode, Doppler and color flow Doppler). * A contrast injection of Definity was performed to improve assessment of LV function. * Contrast was injected into an intravenous site in the right arm. * One vial of Definity ultrasound contrast was diluted in normal saline to a total volume of 10 ml. A total of '3' ml of solution was administered during imaging. * Lot # [id number] of Definity utilized for procedure. * Expiration date OCT 28. * The attending nurse who injected the contrast agent was Jayashree Lei RN. Left Ventricle * The left ventricle is grossly normal size. * There is mild concentric left ventricular hypertrophy. * Ejection Fraction = 55-60%. * No regional wall motion abnormalities noted. Right Ventricle * The right ventricle is not well visualized. * The right ventricle is grossly normal size. * The right ventricular systolic function is qualitatively normal. Atria * The left atrium is severely dilated. * Right atrium not well visualized. * The right atrium is moderately dilated. * No ASD detected; PFO is not assessed. Mitral Valve * The mitral valve is grossly normal. * There is mild mitral annular calcification. * There is trace mitral regurgitation. Tricuspid Valve * The tricuspid valve is not well visualized, but is grossly normal. * There is no tricuspid stenosis. * There is trace tricuspid regurgitation. Aortic Valve * Aortic valve calcified, thickened, mildly restricted * The aortic valve is trileaflet. * Mild valvular aortic stenosis. * Trace aortic regurgitation. Pulmonic Valve * The pulmonary valve is inadequately visualized, but the Doppler data is adequate for interpretation. * There is no pulmonic valvular stenosis. * There is no significant pulmonary regurgitation. Great Vessels * The aortic root and proximal ascending aorta are normal sized. Pericardium/Pleural * There is no pericardial effusion. Great Vessels * Normal inferior vena cava diameter and respiratory variation suggests normal central venous pressure. Left Ventricular Diastolic Function * Diastolic dysfunction, Grade II (pseudonormalization pattern). MMode 2D Measurements and Calculations IVSd 1.3 cm LVIDd 4.6 cm LVIDs 2.9 cm LVPWd 1.4 cm IVS/LVPW 0.87 FS 35.7 % EDV(Teich) 96.6 ml ESV(Teich) 33.5 ml EF(Teich) 65.3 % EDV(cubed) 96.4 ml ESV(cubed) 25.6 ml EF(cubed) 73.4 % LV mass(C)d 240.6 grams LV mass(C)dI 108.6 grams/m\S\2 CO(Teich) 4.7 l/min CI(Teich) 2.1 l/min/m\S\2 SV(Teich) 63.0 ml SI(Teich) 28.4 ml/m\S\2 CO(cubed) 5.2 l/min CI(cubed) 2.4 l/min/m\S\2 SV(cubed) 70.7 ml SI(cubed) 31.9 ml/m\S\2 Ao root diam 3.1 cm Ao root area 7.5 cm\S\2 ACS 1.7 cm LA dimension 3.9 cm asc Aorta Diam 3.2 cm LA/Ao 1.3 LVOT diam 2.0 cm LVOT area 3.2 cm\S\2 LVAd ap4 42.6 cm\S\2 LVLd ap4 9.3 cm EDV(MOD-sp4) 156.0 ml LVAs ap4 25.1 cm\S\2 LVLs ap4 7.7 cm ESV(MOD-sp4) 64.2 ml EF(MOD-sp4) 58.8 % LVAd ap2 42.1 cm\S\2 LVLd ap2 10.3 cm EDV(MOD-sp2) 139.0 ml LVAs ap2 24.2 cm\S\2 LVLs ap2 8.4 cm ESV(MOD-sp2) 55.6 ml EF(MOD-sp2) 60.0 % CO(MOD-sp4) 6.8 l/min CI(MOD-sp4) 3.1 l/min/m\S\2 SV(MOD-sp4) 91.8 ml SI(MOD-sp4) 41.4 ml/m\S\2 CO(MOD-sp2) 6.2 l/min CI(MOD-sp2) 2.8 l/min/m\S\2 SV(MOD-sp2) 83.4 ml SI(MOD-sp2) 37.6 ml/m\S\2 Doppler Measurements and Calculations MV E max jelly 132.9 cm/sec MV A max jelly 118.8 cm/sec MV E/A 1.1 MV dec time 0.28 sec Ao V2 max 254.5 cm/sec Ao max PG 26.3 mmHg Ao max PG (full) 21.0 mmHg Ao V2 mean 169.9 cm/sec Ao mean PG 13.5 mmHg Ao V2 VTI 53.0 cm LOVE(V,A) 1.4 cm\S\2 LOVE(V,D) 1.4 cm\S\2 LV V1 max PG 5.3 mmHg LV V1 max 115.4 cm/sec SV(Ao) 399.3 ml SI(Ao) 180.2 ml/m\S\2 PA V2 max 168.3 cm/sec PA max PG 11.3 mmHg PA acc slope 823.2 cm/sec\S\2 PA acc time 0.14 sec TR max jelly 230.2 cm/sec PA pr(Accel) 14.0 mmHg
[2016-12-03] VITALS (35 sets, daily range): BP systolic 83–132; BP diastolic 31–66; PULSE 59–110; TEMP 36.8–37.3; O2SAT 99–100
[2016-12-03] MEDS: HYDROCORTISONE IV 100 MG in SYRINGE 0 ML IV SCH ×2 (00:10→07:27)
[2016-12-03] MEDS: INSULIN ASPART 100 UNITS/ML 3 ML PEN SC SCH ×6 (04:00→20:15)
[2016-12-03] MEDS ORDERED: DILTIAZEM BOLUS / DRIP IV STA (04:57)
--- NOTE | 2016-12-03 05:11 | Progress Note ---
Progress Note Called due to new onset AF - RVR - HR in 120s initially Planned to start Heparin and Cardizem however her Hb has declined > 2 points without clear source of bleeding. Will D/C SQ heparin and repeat HB at 8am - can start heparin GTT if stable - echo ordered - Cardio consulted.
[2016-12-03] MEDS ORDERED: DILTIAZEM HCL INJ 125 MG in DEXTROSE 5% 100ML IV PRN (05:30)
[2016-12-03] MEDS: PIPERACILL/TAZOBAC IV 4.5 GM in DEXTROSE 5% 100ML IV SCH (05:34)
[2016-12-03 05:55] LABS: BASO % 0.1 %; BASO ABS # 0.01 K/uL (0-0.2); COMPLETE YES; EOS % 0.1 %; HEMATOCRIT 28.6 % (37-47); IG% 0.8 %; LYMPH % 2.1 %; LYMPH ABS # 0.35 K/uL (1.2-3.4); MEAN CELL VOLUME 102.1 fL (80-100); MEAN CORPUSCULAR HEMOGLOBIN 32.1 pg (25-34); MEAN CORPUSCULAR HGB CONC 31.5 g/dl (32-36); MEAN PLATELET VOLUME 11.9 fL (7.4-10.4); MONO % 4.4 %; NEUT % 92.5 %; PLATELET COUNT 125 K/uL (130-400); WHITE BLOOD COUNT 16.93 K/uL (4.8-10.8)
[2016-12-03] MEDS: LEVOTHYROXINE 75 MCG TAB PO SCH (06:22)
[2016-12-03 06:31] LABS: BUN/CREATININE RATIO 9.7 (10-20); CALCIUM 8.2 mg/dl (8.5-10.1); CREATININE 3.6 mg/dl (0.60-1.20); POTASSIUM 4.1 mmol/L (3.5-5.1)
[2016-12-03] MEDS: NOREPINEPHRINE BIT INJ 8 MG in DEXTROSE 5% 500ML 500 ML IV PRN (06:33)
[2016-12-03 06:41] LABS: ISTAT ARTERIAL BLOOD GAS HCO3 26 meq/L (19-24); ISTAT ARTERIAL BLOOD GAS PCO2 41 mmHg (35-46); ISTAT ARTERIAL BLOOD GAS PO2 75 mmHg (80-95); ISTAT ARTERIAL BLOOD GAS pH 7.41 (7.35-7.45); ISTAT CARBON DIOXIDE 27 mEq/l (24-31); ISTAT DELIVERY SYSTEM Cannula; ISTAT SITE Art Line
--- NOTE | 2016-12-03 07:18 | DIAGNOSTIC IMAGING REPORT ---
CHEST ONE VIEW PORTABLE CLINICAL HISTORY: hypoxia COMPARISON STUDY: 12/02/2016 FINDINGS: The heart remains enlarged. There is congestive failure/pulmonary edema, similar to the prior study. There is mild mediastinal widening. Left infrahilar airspace opacities are suspected.[ IMPRESSION: 1. Stable findings 2. Cardiomegaly with radiographic evidence of congestive failure/pulmonary edema 3. Stable mediastinal widening 4. Stable left infrahilar airspace opacities Electronically signed by: Og Mahan M.D. 12/03/2016 7:16 AM Dictated Date/Time: 12/03/2016 7:15 AM
[2016-12-03] MEDS: GUAIFENESIN 600 MG TABCR PO SCH ×2 (07:27→20:06)
[2016-12-03] MEDS: ASPIRIN 81 MG ECTAB PO SCH (07:27)
[2016-12-03] MEDS: CLOPIDOGREL BISULFATE 75 MG TAB PO SCH (07:27)
[2016-12-03] MEDS: PANTOprazole INJ 40 MG in SYRINGE 0 ML IV SCH (07:31)
[2016-12-03] MEDS: INSULIN GLARGINE SOLOSTAR 100 UNITS/ML 3 ML PEN SC SCH ×2 (07:33→20:15)
[2016-12-03] MEDS: ALBUT/IPRATROP 3MG/0.5MG NEB 3 ML VIAL INH SCH ×4 (07:37→20:26)
[2016-12-03] MEDS ORDERED: OPTIRAY 320 IV PRN (11:15)
[2016-12-03] MEDS: DOXYCYCLINE IV 100 MG in DEXTROSE 5% 100ML 100 ML IV SCH (11:48)
--- NOTE | 2016-12-03 12:01 | DIAGNOSTIC IMAGING REPORT ---
CT ABD/PELVIS IV CONTRAST ONLY CLINICAL HISTORY: Back pain. Possible retroperitoneal hemorrhage. COMPARISON STUDY: 05/16/2016 TECHNIQUE: Following the IV administration of 93 mL of Optiray-320, CT scan of the abdomen and pelvis was performed from the lung bases to the proximal femurs. Images are reviewed in the axial, sagittal, and coronal planes. IV contrast was administered without complication. CT DOSE: 1662.96 mGy.cm FINDINGS: Lower chest: The heart is enlarged. There are trace pleural effusions. There are bibasal airspace is opacities with bilateral bronchial wall thickening. There is a hiatal hernia Liver: The contrast-enhanced liver is normal in size, contour, and attenuation. There is no intrahepatic biliary ductal dilatation. The hepatic veins and portal veins are patent. Gallbladder: Cholelithiasis. Mild gallbladder distention. Spleen: There is a stable 14 mm posterior perisplenic nodule Pancreas: Unremarkable. Adrenal glands: Unremarkable. Kidneys: There is a stable 1 cm lower pole right renal hypodensity, likely representing a cyst. Bowel: There are no transition zones indicate bowel obstruction. There is moderate stool present throughout the colon. There is a large fat-containing ventral hernia. There is no evidence of acute diverticulitis. There are no findings to indicate acute appendicitis. Peritoneum: There is no free air. There is no evidence of ascites. There are no findings to indicate a retroperitoneal hemorrhage. Vasculature: There are extensive atherosclerotic calcifications throughout the arterial system of the abdomen Adenopathy: None. Pelvic viscera: The bladder, and pelvic viscera are unremarkable. Skeletal structures: There are endplate erosive changes at the L3-4 level. These were present on the prior May 27 study, and are therefore likely discogenic basis IMPRESSION: 1. No evidence of bowel obstruction. No evidence of free air 2. Hiatal hernia 3. Cholelithiasis with mild gallbladder distention 4. Large fat-containing periumbilical ventral hernia 5. Persistent L3-4 endplate erosive changes 6. No evidence of retroperitoneal hemorrhage 7. Trace pleural effusions. Bibasal airspace opacities with bilateral lower lobe bronchial wall thickening Electronically signed by: Og Mahan M.D. 12/03/2016 11:59 AM Dictated Date/Time: 12/03/2016 11:53 AM
[2016-12-03] MEDS ORDERED: METOPROLOL TARTRATE 1 MG/ML VIAL IV PRN (12:15)
--- NOTE | 2016-12-03 12:16 | Critical Care Progress Note ---
Critical Care Progress Note Date of Service Dec 03, 2016. ICU Day ICU Day Number: [address] Reina Subjective Pleasantly demented, aware she is in [facility], believes it is March 31 and brought her vomitus the president. No complaints of chest pain or shortness of breath. Objective Gen. alert: Pleasant HEENT normocephalic atraumatic Cardiovascular S1-S2 Pulmonary scattered Rales bilaterally Abdomen: Soft nondistended nontender Genitourinary: Normal external genitalia Skin: Pale, warm dry intact Assessment & Plan 1. Acute hypercapnic failure 2. Acute respiratory acidosis 3. Sepsis secondary to an unknown source 4. Acute on chronic COPD exacerbation 5. Chronic diastolic CHF grade I 6. ESRD 7. HTN 8. anemia of chronic disease 9 Hypothyroid 10. depression #11 uremic encephalopathy NVS -Uremic encephalopathy improved with dialysis CVS -Converted to atrial fibrillation with rapid ventricular response Overnight was placed on diltiazem infusion still required the Levophed for pressure support - Decreased blood counts, we'll obtain CT scan abdomen and pelvis rule out retroperitoneal hematoma (no evidence of retroperitoneal hematoma on CT scan per my interpretation) - May be dilutional secondary to volume of medications given RVS Acute hypoxic respiratory failure secondary to volume overload and CHF. Patient has adequate oxygen saturation on supplemental oxygen via nasal cannula RENAL - neprho consult- appreciate input - check BMP in the am - daily weights GI - renal diet ordered. ID - Zosyn and Vanc continued - zosyn GITA < 64 was sensitive to [id number] pseudomonas isolates from urine - Amikacin less than or equal to 16 GITA - Aztreonam intermediate at less than or equal to 60 - ID consult ENDO - insulin ISS - glycemic consult - Hypoglycemia will need to continue to monitor for these events HEME - 2 g decrease overnight await CT scan - Thrombocytopenia HIT score 3, low probability for HIT. - Will continue DVT prophylaxis if CT scan is normal DVT PROPHYLAXIS - heparin q12 continued with extra dose today at 12 PM given missed morning dose. I have personally spent 45 minutes of critical care time in the direct management of this patient. This is a life/limb threatening event. This includes time spent evaluating patient, direct bedside care, chart review, placing orders, interpretation of diagnostic studies, discussion with consultants, patient, and family members, as well as other required patient management activities. This time is exclusive of all separately billable procedures, and teaching time and separate from and in addition to any other critical care service time. Data Medications: Current Inpatient Medications Medications (Trade) Dose Ordered Sig/Gelacio Route Start Time Stop Time Status Last Admin Dose Admin Glucose (Glucose 40% Gel) 15-30 GRAMS 15 GRAMS... UD PRN PO 12/01/16 14:15 12/31/16 14:14 Glucose (Glucose Chew Tab) 4-8 Tablets 4 Tabl... UD PRN PO 12/01/16 14:15 12/31/16 14:14 Dextrose (Dextrose 50% 50ML Syringe) 25-50ML OF 50% DW IV FOR... UD PRN IV 12/01/16 14:15 12/31/16 14:14 Glucagon (Glucagon Inj) 1 mg UD PRN SQ 12/01/16 14:15 12/31/16 14:14 Miscellaneous Information (Consult Glycemic Management Pharmacy) 1 ea UD N/A 12/01/16 14:34 12/31/16 14:33 Acetaminophen (Tylenol Tab) 650 mg Q4H PRN PO 12/01/16 14:15 12/31/16 14:14 Nitroglycerin 0.4 mg 0.4 mg UD PRN SL 12/01/16 14:15 12/31/16 14:14 Pantoprazole Sodium/Syringe (Protonix Inj/ Syringe) 10 ml @ 5 mls/min DAILY IV 12/02/16 09:00 01/01/17 08:59 12/03/16 07:31 5 MLS/MIN Albuterol/ Ipratropium (Duoneb) 3 ml QIDR INH 12/01/16 16:00 12/31/16 15:59 12/03/16 07:37 3 ML Aspirin (Ecotrin Tab) 81 mg DAILY PO 12/02/16 09:00 01/01/17 08:59 12/03/16 07:27 81 MG Atorvastatin Calcium (Lipitor Tab) 40 mg HS PO 12/01/16 21:00 12/31/16 20:59 12/02/16 20:37 40 MG Clopidogrel Bisulfate (plAVix TAB) 75 mg DAILY PO 12/02/16 09:00 01/01/17 08:59 12/03/16 07:27 75 MG Escitalopram Oxalate (Lexapro Tab) 10 mg HS PO 12/01/16 21:00 12/31/16 20:59 12/02/16 20:37 10 MG Guaifenesin (Mucinex Contr Rel Tab) 600 mg Q12 PO 12/01/16 21:00 12/31/16 20:59 12/03/16 07:27 600 MG Insulin Glargine (Lantus Solostar Pen) 0 units if BSG less than 12... Q12 SC 12/01/16 21:00 12/31/16 20:59 12/03/16 07:33 4 UNIT Levothyroxine Sodium (Synthroid Tab) 75 mcg DAILYBB PO 12/02/16 06:00 01/01/17 05:59 12/03/16 06:22 75 MCG Albuterol/ Ipratropium (Duoneb) 3 ml Q2R PRN INH 12/01/16 14:45 12/31/16 14:44 Vancomycin HCl (Consult) 1 ea UD PRN N/A 12/01/16 15:15 12/31/16 15:14 Piperacillin Sod/ Tazobactam Sod 1 ea 1 ea UD PRN N/A 12/01/16 15:15 12/31/16 15:14 Norepinephrine Bitartrate/ Dextrose (Levophed Inj/ D5W 500ml) 508 ml @ 0 mls/hr Q0M PRN IV 12/01/16 15:15 12/31/16 15:14 12/03/16 06:33 8 MLS/HR Insulin Aspart SLIDING SCALE If C... Q4 SC 12/01/16 16:00 12/31/16 15:59 Piperacillin Sod/ Tazobactam Sod 4.5 gm/Dextrose 120 ml @ 30 mls/hr Q12H IV 12/01/16 18:00 12/08/16 17:59 12/03/16 05:34 30 MLS/HR Doxycycline Hyclate/Dextrose (Vibramycin IV/ D5 100ml) 110 ml @ 50 mls/hr DAILY@1200 IV 12/02/16 12:00 12/08/16 14:11 12/02/16 12:08 50 MLS/HR Acetaminophen 1000 mg 1,000 mg Q8H PRN IV 12/02/16 16:30 2/20/17 16:29 12/02/16 16:35 1,000 MG Diltiazem HCl/ Dextrose (Cardizem Inj/D5 100ml) 125 ml @ 0 mls/hr Q0M PRN IV 12/03/16 05:30 01/02/17 05:29 12/03/16 05:33 5 MLS/HR I & O: 24-Hour Column 12/03/16 08:00 Intake Total 2352 ml Output Total 2000 ml Balance 352 ml Vital Signs: Date Time Temp Pulse Resp B/P Pulse Ox O2 Delivery O2 Flow Rate FiO2 12/03/16 08:00 36.8 95 20 120/63 100 Room Air 12/03/16 08:00 100 Room Air 12/03/16 07:38 94 18 100 Room Air 12/03/16 06:30 91 83/33 100 12/03/16 06:28 108 85/53 100 12/03/16 06:25 107 97/43 100 12/03/16 06:16 105 99/46 100 12/03/16 06:14 104 93/38 100 12/03/16 06:00 106 111/53 100 12/03/16 06:00 106 16 103/53 100 Nasal Cannula 3.0 12/03/16 05:59 105 89/31 100 12/03/16 05:45 108 101/36 100 12/03/16 05:43 103 87/56 100 12/03/16 05:30 99 103/35 100 12/03/16 05:28 93 113/57 100 12/03/16 05:15 104 90/33 100 12/03/16 05:00 100 90/39 100 12/03/16 04:00 100 Nasal Cannula 3.0 12/03/16 04:00 37.3 100 17 112/37 100 BiPAP 12/03/16 02:00 37.3 110 18 110/38 100 BiPAP 12/03/16 00:00 37.3 100 17 106/37 100 BiPAP 12/03/16 00:00 100 BiPAP 12/02/16 22:32 115 100 40 12/02/16 22:00 37.6 115 15 118/38 100 BiPAP 12/02/16 20:10 116 18 100 Nasal Cannula 3.0 12/02/16 20:00 38.3 127 18 112/35 96 Nasal Cannula 3.0 12/02/16 20:00 96 Nasal Cannula 3.0 12/02/16 18:00 38.8 129 20 174/59 97 Nasal Cannula 3.0 12/02/16 16:00 99 Nasal Cannula 3.0 12/02/16 16:00 38.8 82 94/26 100 12/02/16 15:58 38.8 82 128/65 99 12/02/16 15:54 38.8 83 99/51 99 12/02/16 15:45 38.8 82 94/24 100 12/02/16 15:30 38.7 80 84/32 98 12/02/16 15:15 38.7 80 86/23 100 12/02/16 15:00 38.7 79 73/23 12/02/16 14:45 38.6 78 85/25 12/02/16 14:42 79 18 92 Nasal Cannula 3.0 12/02/16 14:30 38.4 77 58/17 12/02/16 14:15 38.3 83 113/27 100 12/02/16 14:01 38.1 81 137/43 100 12/02/16 14:00 38.1 83 18 130/33 98 Nasal Cannula 3.0 12/02/16 14:00 38.1 83 113/26 100 12/02/16 12:15 37.4 81 113/46 100 12/02/16 12:00 100 Nasal Cannula 4.0 12/02/16 12:00 37.3 82 98/25 100 12/02/16 11:59 37.3 81 108/27 100 12/02/16 11:51 37.0 80 132/51 12/02/16 11:50 37.2 80 102/26 100 12/02/16 11:45 37.2 71 96/20 100 12/02/16 11:45 78 130/55 12/02/16 11:44 37.2 80 98/24 100 12/02/16 11:30 76 114/47 12/02/16 11:30 37.2 76 90/21 100 12/02/16 11:29 37.2 73 87/19 100 12/02/16 11:16 75 18 100 Nasal Cannula 3.0 12/02/16 11:15 37.1 71 130/41 100 12/02/16 11:15 75 126/42 12/02/16 11:14 37.1 75 117/37 100 12/02/16 11:00 74 119/36 12/02/16 11:00 37.1 70 113/34 100 12/02/16 10:59 37.1 73 93/33 100 12/02/16 10:45 37.0 74 134/39 100 12/02/16 10:45 75 140/41 12/02/16 10:44 37.0 74 133/41 100 12/02/16 10:30 75 137/48 12/02/16 10:30 37.0 75 127/38 100 12/02/16 10:29 37.0 75 133/40 100 12/02/16 10:15 75 127/68 12/02/16 10:15 37.0 75 128/33 100 12/02/16 10:15 37.0 75 128/33 100 12/02/16 10:14 37.0 76 133/36 100 Laboratory Results: Last 24 Hours Test 12/02/16 11:58 12/02/16 14:20 12/02/16 16:12 12/03/16 05:30 Bedside Glucose 68 mg/dl 107 mg/dl White Blood Count 16.93 K/uL Red Blood Count 2.80 M/uL Hemoglobin 9.0 g/dL Hematocrit 28.6 % Mean Corpuscular Volume 102.1 fL Mean Corpuscular Hemoglobin 32.1 pg Mean Corpuscular Hemoglobin Concent 31.5 g/dl Platelet Count 125 K/uL Mean Platelet Volume 11.9 fL Neutrophils (%) (Auto) 92.5 % Lymphocytes (%) (Auto) 2.1 % Monocytes (%) (Auto) 4.4 % Eosinophils (%) (Auto) 0.1 % Basophils (%) (Auto) 0.1 % Neutrophils # (Auto) 15.68 K/uL Lymphocytes # (Auto) 0.35 K/uL Monocytes # (Auto) 0.74 K/uL Eosinophils # (Auto) 0.01 K/uL Basophils # (Auto) 0.01 K/uL RDW Standard Deviation 64.3 fL RDW Coefficient of Variation 17.2 % Immature Granulocyte % (Auto) 0.8 % Immature Granulocyte # (Auto) 0.14 K/uL Sodium Level 136 mmol/L Potassium Level 4.1 mmol/L Chloride Level 100 mmol/L Carbon Dioxide Level 27 mmol/L Anion Gap 9.0 mmol/L Blood Urea Nitrogen 35 mg/dl Creatinine 3.60 mg/dl Est Creatinine Clear Calc Drug Dose 18.3 ml/min Estimated GFR () 14.0 Estimated GFR (Non- 12.0 BUN/Creatinine Ratio 9.7 Random Glucose 116 mg/dl Calcium Level 8.2 mg/dl Magnesium Level 2.0 mg/dl Test 12/03/16 06:28 12/03/16 07:20 12/03/16 08:30 Blood Gas Sample Site Art Line Bedside Blood Gas pH (LAB) 7.41 Bedside Blood Gas pCO2 (LAB) 41 mmHg Bedside Blood Gas pO2 (LAB) 75 mmHg Bedside Blood Gas HCO3 (LAB) 26 meq/L Bedside Blood Gas Total CO2 27 mEq/l Bedside Blood Gas Base Excess (LAB) 1.0 meq/L Bedside Blood Gas O2 Saturation 95.0 % John Test NA Oxygen Delivery Device Cannula Bedside Glucose 122 mg/dl Hemoglobin 8.6 g/dL
[2016-12-03] MEDS ORDERED: HEPARIN SOD 5000 UNIT/0.5 ML CARP SQ ONE (12:30)
[2016-12-03] MEDS ORDERED: METOPROLOL TARTRATE 25 MG TAB PO ONE (13:15)
[2016-12-03] MEDS ORDERED: NURSING VERBAL MED ORDER ONE (13:45)
[2016-12-03] MEDS ORDERED: [UNRECOGNIZED DRUG - REMARK] PRN (13:45)
[2016-12-03] MEDS: AMIODARONE 200 MG TAB PO SCH ×3 (13:50→20:06)
[2016-12-03] MEDS ORDERED: CEFTAZIDIME IV 1 GM in DEXTROSE 5% ADD-VANTAGE 50ML 50 ML IV SCH (14:00)
--- NOTE | 2016-12-03 14:39 | Pharmacy Progress Note ---
Glycemic Control: Progress Nt Date of Service Dec 03, 2016. Scope Glycemic Pharmacist consulted by Dr. Sara Michaud on 12/01/16 for glycemic control and to write orders per [facility] inpatient glycemic control protocol. Objective Accuchecks BSG (last 24hrs): Test 12/02/16 16:12 12/02/16 20:33 12/03/16 00:05 12/03/16 03:45 Bedside Glucose 107 mg/dl (70-90) 115 mg/dl (70-90) 146 mg/dl (70-90) 123 mg/dl (70-90) Test 12/03/16 05:30 12/03/16 07:20 12/03/16 11:48 Random Glucose 116 mg/dl (70-99) Bedside Glucose 122 mg/dl (70-90) 134 mg/dl (70-90) Laboratory Data (last 24hrs) Test 12/03/16 05:30 Anion Gap 9.0 mmol/L BUN/Creatinine Ratio 9.7 Blood Urea Nitrogen 35 mg/dl Creatinine 3.60 mg/dl Potassium Level 4.1 mmol/L Sodium Level 136 mmol/L White Blood Count 16.93 K/uL Red Blood Count 2.80 M/uL Hemoglobin 9.0 g/dL Hematocrit 28.6 % Mean Corpuscular Volume 102.1 fL Mean Corpuscular Hemoglobin 32.1 pg Mean Corpuscular Hemoglobin Concent 31.5 g/dl Platelet Count 125 K/uL Mean Platelet Volume 11.9 fL Neutrophils (%) (Auto) 92.5 % Lymphocytes (%) (Auto) 2.1 % Monocytes (%) (Auto) 4.4 % Eosinophils (%) (Auto) 0.1 % Basophils (%) (Auto) 0.1 % Neutrophils # (Auto) 15.68 K/uL Lymphocytes # (Auto) 0.35 K/uL Monocytes # (Auto) 0.74 K/uL Eosinophils # (Auto) 0.01 K/uL Basophils # (Auto) 0.01 K/uL Recent Pertinent Medications Outpatient Anti-diabetic Regimen: * Lantus 8 units BID, Humalog SS * A1c = 6.7 % 09/19/16 (esrd) The patient is currently receiving: * Basal insulin: Lantus 8 units every 12 hours, give 0 units for BSG below 110 mg/dl * Correctional Insulin: Novolog Correction per scale ACHS Goal Range: Low 140 mg/dL - High 180 mg/dL Correction Factor: 25 mg/dL/unit * Prandial insulin: Per carb ratio of 1 unit per 20 grams CHO consumed ( however, NPO status) Risk Factors for Insulin Resistance: * Infection: Sepsis, multi-drug resistant pseudomonas in Urine * Pressors: Norepi * Diet: NPO --> DM2/AHA/Renal Assessment & Plan ASSESSMENT: * ADA & AACE recommend a goal blood sugar range 140-180 mg/dl for the majority of critically ill & non-critically ill patients. However, more stringent targets may be selected in individual cases. * Pt admitted to the ICU currently. * BSG has been well-controlled during admission so far. * Ordered a 1/2 dose of Lantus this AM for NPO status. * Pt now ordered a diet so will increase Lantus starting at bedtime tonight. * Will tighten Novolog CR based upon previous admission data and weight based dosing. Also, the CR should be ~ 1/3 of the CF. * Add Novolog overnight check to aid in resolving hyperglycemia. PLAN FOR INPATIENT GLYCEMIC CONTROL: * Continue Lantus 8 units every 12 hours; hold for BSG below 110 mg/dl * Novolog ACHS + 02 * Continue correction factor of 25 mg/dl/unit * Tighten carb ratio to 1 unit per 15 grams CHO consumed * Continue goal range of Low 140 mg/dL - High 180 mg/dL RECOMMENDATIONS FOR DISCHARGE: * Resume home DM regimen upon discharge * A1c = 6.7% * Please note that the plan above was derived based on current level of insulin resistance and hospital stress. These recommendations are appropriate for inpatient admission only. Plan of care upon discharge will need to be reassessed to avoid potential outpatient hypo/hyperglycemia. Thank you.
--- NOTE | 2016-12-03 15:29 | PROGRESS NOTE ---
DATE: 12/03/2016 HISTORY OF PRESENT ILLNESS: The patient had dialysis last 2 days in a row for fluid removal. She is still in ICU but looks like she is better. PHYSICAL EXAMINATION: GENERAL: She still appears confused. VITAL SIGNS: Her oxygenation status is much better now. Blood pressure is 124. Most recent vital signs shows a blood pressure of 132/66, 99% on room air. Pulse rate 67 per minute. HEENT: Mucous membranes moist. NECK: Supple, no jugular venous distention. CHEST: Bilateral decreased breath sounds, very poor inspiratory effort. CARDIOVASCULAR: S1 and S2, regular. 2/6 systolic murmur heard. ABDOMEN: Soft, nontender, obese. EXTREMITIES: Shows chronic skin changes from venous stasis and peripheral vascular disease. No edema noted. AV fistula is in the left upper extremity and has good bruit and thrill. LABORATORY TESTS: From this morning shows hemoglobin of 8.6, sodium 136, potassium 4.1, BUN 35, creatinine 3.6, calcium 8.2. ASSESSMENT AND PLAN: End-stage renal disease. She appears better volume eduardo at this time. We will plan to do dialysis tomorrow as per her regular schedule of Sunday, Sunday, and Sunday. Overall, she has made significant improvement.
--- NOTE | 2016-12-03 16:50 | Hospitalist Progress Note ---
Hospitalist Progress Note Date of Service Dec 03, 2016. Subjective Pt evaluation today including: conversation w/ patient, physical exam, chart review, lab review, review of studies, review of inpatient medication list develop new onset AF during mid night Objective Vital Signs Date Time Temp Pulse Resp B/P Pulse Ox O2 Delivery O2 Flow Rate FiO2 12/03/16 16:01 63 118/34 100 12/03/16 15:58 37.0 63 18 122/51 100 Room Air 12/03/16 15:50 100 Room Air 12/03/16 15:29 63 18 100 Room Air 12/03/16 15:01 65 125/41 100 12/03/16 14:59 65 119/41 100 12/03/16 14:01 67 118/41 100 12/03/16 14:00 67 18 132/39 99 Room Air 12/03/16 12:00 Room Air 12/03/16 12:00 37.0 99 18 121/66 99 Room Air 12/03/16 11:55 81 18 100 Room Air 12/03/16 10:00 94 18 90/49 100 Room Air 12/03/16 08:00 36.8 95 20 120/63 100 Room Air 12/03/16 08:00 100 Room Air 12/03/16 07:38 94 18 100 Room Air 12/03/16 06:30 91 83/33 100 12/03/16 06:28 108 85/53 100 12/03/16 06:25 107 97/43 100 12/03/16 06:16 105 99/46 100 12/03/16 06:14 104 93/38 100 12/03/16 06:00 106 111/53 100 12/03/16 06:00 106 16 103/53 100 Nasal Cannula 3.0 12/03/16 05:59 105 89/31 100 12/03/16 05:45 108 101/36 100 12/03/16 05:43 103 87/56 100 12/03/16 05:30 99 103/35 100 12/03/16 05:28 93 113/57 100 12/03/16 05:15 104 90/33 100 12/03/16 05:00 100 90/39 100 12/03/16 04:00 100 Nasal Cannula 3.0 12/03/16 04:00 37.3 100 17 112/37 100 BiPAP 12/03/16 02:00 37.3 110 18 110/38 100 BiPAP 12/03/16 00:00 37.3 100 17 106/37 100 BiPAP 12/03/16 00:00 100 BiPAP 12/02/16 22:32 115 100 40 12/02/16 22:00 37.6 115 15 118/38 100 BiPAP 12/02/16 20:10 116 18 100 Nasal Cannula 3.0 12/02/16 20:00 38.3 127 18 112/35 96 Nasal Cannula 3.0 12/02/16 20:00 96 Nasal Cannula 3.0 12/02/16 18:00 38.8 129 20 174/59 97 Nasal Cannula 3.0 Physical Exam General Appearance: no apparent distress Eyes: normal inspection ENT: hearing grossly normal Neck: supple Respiratory/Chest: chest non-tender, + rales Cardiovascular: + irregularly irregular Abdomen: normal bowel sounds, non tender Extremities: non-tender 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: oriented x 3 Skin: normal color Laboratory Results Last 24 Hours Test 12/02/16 20:33 12/03/16 00:05 12/03/16 03:45 12/03/16 05:30 Bedside Glucose 115 mg/dl 146 mg/dl 123 mg/dl White Blood Count 16.93 K/uL Red Blood Count 2.80 M/uL Hemoglobin 9.0 g/dL Hematocrit 28.6 % Mean Corpuscular Volume 102.1 fL Mean Corpuscular Hemoglobin 32.1 pg Mean Corpuscular Hemoglobin Concent 31.5 g/dl Platelet Count 125 K/uL Mean Platelet Volume 11.9 fL Neutrophils (%) (Auto) 92.5 % Lymphocytes (%) (Auto) 2.1 % Monocytes (%) (Auto) 4.4 % Eosinophils (%) (Auto) 0.1 % Basophils (%) (Auto) 0.1 % Neutrophils # (Auto) 15.68 K/uL Lymphocytes # (Auto) 0.35 K/uL Monocytes # (Auto) 0.74 K/uL Eosinophils # (Auto) 0.01 K/uL Basophils # (Auto) 0.01 K/uL RDW Standard Deviation 64.3 fL RDW Coefficient of Variation 17.2 % Immature Granulocyte % (Auto) 0.8 % Immature Granulocyte # (Auto) 0.14 K/uL Sodium Level 136 mmol/L Potassium Level 4.1 mmol/L Chloride Level 100 mmol/L Carbon Dioxide Level 27 mmol/L Anion Gap 9.0 mmol/L Blood Urea Nitrogen 35 mg/dl Creatinine 3.60 mg/dl Est Creatinine Clear Calc Drug Dose 18.3 ml/min Estimated GFR () 14.0 Estimated GFR (Non- 12.0 BUN/Creatinine Ratio 9.7 Random Glucose 116 mg/dl Calcium Level 8.2 mg/dl Magnesium Level 2.0 mg/dl Total Bilirubin 0.7 mg/dl Direct Bilirubin 0.3 mg/dl Aspartate Amino Transf (AST/SGOT) 24 U/L Alanine Aminotransferase (ALT/SGPT) 20 U/L Alkaline Phosphatase 123 U/L Total Protein 5.7 gm/dl Albumin 2.3 gm/dl Test 12/03/16 06:28 12/03/16 07:20 12/03/16 08:30 12/03/16 11:48 Blood Gas Sample Site Art Line Bedside Blood Gas pH (LAB) 7.41 Bedside Blood Gas pCO2 (LAB) 41 mmHg Bedside Blood Gas pO2 (LAB) 75 mmHg Bedside Blood Gas HCO3 (LAB) 26 meq/L Bedside Blood Gas Total CO2 27 mEq/l Bedside Blood Gas Base Excess (LAB) 1.0 meq/L Bedside Blood Gas O2 Saturation 95.0 % John Test NA Oxygen Delivery Device Cannula Bedside Glucose 122 mg/dl 134 mg/dl Hemoglobin 8.6 g/dL Test 12/03/16 16:00 Bedside Glucose 129 mg/dl Assessment and Plan patient is a 71 yo old M with ESRD, COPD, HTN who is presenting to ER from [facility] after being found unresponsive 1 sepsis secondary to UTI or pneumonia: improving, UA showed Escherichia coli, awaiting sensitivities, will continue current antibiotic regimen. chest x ray can't rule out pneumonia. continue IV fluid, try to wean off levophed, monitor BP, f/u culture results f/u ID consult. 2 Acute hypercapnic failure: improving, continue Douneb and antibiotics, secondary to COPD exacerbation, underlying pneumonia and fluid overload. 3. New onset A fib: patient developed new onset Afib during night. rate currently is controlled by Cardizem. consider start heparin drip after H@H is stable. f/u cardiology and ECHO 4. ESRD on HD: stable, f/u renal consult 5. Encephalopathy: improving, most secondary to hypercapnia. 6 Hypothyroid: continue home medication 7 Anemia: H@H drop, but no sign of bleeding. CT of abd didn't show retroperitoneal bleeding. Monitor H@H DVT prophylaxis: heparin Diet: renal diet
[2016-12-03] MEDS: ATORVASTATIN 20 MG TAB PO SCH (20:06)
[2016-12-03] MEDS: ESCITALOPRAM OXALATE 10 MG TAB PO SCH (20:06)
[2016-12-03] MEDS: HEPARIN SOD 5000 UNIT/0.5 ML CARP SQ SCH (20:16)
[2016-12-03] MEDS ORDERED: METOPROLOL TARTRATE 25 MG TAB PO SCH (21:00)
[2016-12-04] VITALS (31 sets, daily range): BP systolic 90–132; BP diastolic 27–66; PULSE 65–92; TEMP 36.9–38.6; O2SAT 100
--- NOTE | 2016-12-04 00:12 | CARDIOLOGY CONSULTATION ---
DATE OF CONSULTATION: 12/03/2016 REFERRING: Dr. Smith and Dr. Reina. PRIMARY CARE PHYSICIAN: Through [facility]. PRIMARY PHYSICIAN OPHTHALMOLOGIST: Gm Cox MD [employer] SUPERINTENDENT: Milton Palumbo DO HISTORY OF PRESENT ILLNESS: The patient is an extremely complex 71-year-old female, whose past medical history is notable for ischemic heart disease with prior bare metal stent to the left anterior descending with mixed cardiomyopathy history, both nonischemic and an ischemic etiology; longstanding hypertension; past diastolic heart failure, end-stage renal disease on chronic hemodialysis. The patient has had difficulties in the past with marked arrhythmias including paroxysmal atrial fibrillation with poor tolerance of atrial fibrillation with rapid ventricular response. She had been previously controlled in sinus rhythm with oral amiodarone therapies, she is at poor anticoagulation risk and had anticoagulation discontinued after multiple trials due to recurrent hemorrhage from multiple aspects including epistaxis. 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 The patient has been rehospitalized at [facility] with recurrent sepsis and respiratory failure with multiple episodes of hospitalizations in the last one month's time. The patient presented at this admission with acute hypercapnic respiratory failure and underlying sepsis with profound hypotension requiring pressor support. The patient began manifesting clinical improvement, but relapsed into atrial fibrillation with rapid ventricular response last evening. Heart rate has come under control with IV diltiazem. She is referred now for further evaluation. Echocardiogram done this admission demonstrates preserved LV systolic function without wall motion abnormality. The patient is unable to offer any additional information due to mild dementia and no recollection of presenting course. ALLERGIES: JARET INHIBITORS, AMOXICILLIN, CLAVULANIC ACID AND NONSTEROIDAL ANTI-INFLAMMATORY DRUGS. MEDICATIONS PRIOR TO HOSPITALIZATION: Per med reconciliation included; albuterol nebulizer p.r.n., allopurinol 100 mg daily, aspirin 81 mg p.o. daily, atorvastatin 40 mg at bedtime, calcium carbonate 500 mg at bedtime, carvedilol 6.25 mg b.i.d., clopidogrel 75 mg p.o. daily, docusate 100 mg b.i.d., ergocalciferol 50,000 units weekly, Lexapro 10 mg at bedtime, furosemide 20 mg b.i.d., gabapentin, guaifenesin p.r.n., hydralazine 50 mg t.i.d., Lantus insulin, levothyroxine 75 mcg daily, omeprazole 20 mg p.o. daily, Tamiflu, oxygen 2 liters nasal cannula, prednisone 10 mg p.o. daily, ropinirole 2 mg at bedtime, Renvela 1600 mg at bedtime and 3200 mg t.i.d., Spiriva inhaler, Nephrocaps. PAST SURGICAL HISTORY: Notable for prior appendectomy, abdominal herniorrhaphy, nasal septoplasty, rotator cuff repair, right elbow surgeries, bilateral ankle surgeries and debridement of peripheral lesions, multiple AV fistula surgeries. FAMILY HISTORY AND SOCIAL HISTORY: Noncontributory. The patient is currently a resident of [facility]. Nonsmoker, nondrinker. PHYSICAL EXAMINATION: VITAL SIGNS: Heart rate is 99, blood pressure is 121/66, rhythm reveals atrial fibrillation with variable ventricular response rates. HEENT: Normocephalic, atraumatic. NECK: Thick. LUNGS: Reveal diminished breath sounds diffusely. CARDIOVASCULAR: Irregularly irregular. ABDOMEN: Obese, soft. There is minimal excoriation of abdominal folds. There is no skin breakdown. EXTREMITIES: Reveal no edema. DATA: EKG on presentation revealed sinus bradycardia with first degree AV block, voltage criteria for left ventricular hypertrophy. Study this morning revealed atrial fibrillation with rapid ventricular response, moderate voltage criteria for left ventricular hypertrophy. LABORATORY STUDIES: White cell count 16.9, hemoglobin is 9.0 down from 11.7, sodium is 136, potassium is 4.1, chloride is 100, bicarbonate is 27, BUN is 35, creatinine is 3.6. Echocardiogram as described demonstrates left ventricular hypertrophy with preserved LV systolic function. Urine culture is growing multi-resistant Pseudomonas. IMPRESSION: A 71-year-old female, who presents with recurrent sepsis with course complicated by atrial fibrillation with rapid ventricular response. The patient in the past has had paroxysmal atrial fibrillation and has been poorly tolerant of arrhythmias in the past. She was also felt to be non-anticoagulation candidate due to multiple hemorrhagic issues. She has been previously maintained in sinus with low dose amiodarone therapy, and I suspect she will continue to require this for the future. PLAN: As already initiated, begin low-dose beta marisa with metoprolol, adding an oral amiodarone load at 200 mg q.i.d. We will taper diltiazem which hopefully should help in patient's blood pressure management. We will follow EKGs serially in the hospital.
[2016-12-04] MEDS ORDERED: INSULIN ASPART 100 UNITS/ML 3 ML PEN SC SCH (02:00)
[2016-12-04 05:30] LABS: BASO % 0.1 %; BASO ABS # 0.01 K/uL (0-0.2); EOS % 0.5 %; HEMATOCRIT 27.6 % (37-47); IG% 0.5 %; LYMPH ABS # 0.51 K/uL (1.2-3.4); MEAN CELL VOLUME 99.3 fL (80-100); MEAN CORPUSCULAR HGB CONC 32.2 g/dl (32-36); MONO % 4.3 %; NEUT % 91.6 %; PLATELET COUNT 122 K/uL (130-400); RED BLOOD COUNT 2.78 M/uL (4.2-5.4)
[2016-12-04 06:01] LABS: COMPLETE YES
[2016-12-04] MEDS: LEVOTHYROXINE 75 MCG TAB PO SCH (06:13)
[2016-12-04] MEDS: ACETAMINOPHEN 325 MG TAB PO PRN (06:13)
[2016-12-04 06:23] LABS: BUN/CREATININE RATIO 10.8 (10-20); CALCIUM 8.5 mg/dl (8.5-10.1); POTASSIUM 4.5 mmol/L (3.5-5.1)
[2016-12-04] MEDS: INSULIN ASPART 100 UNITS/ML 3 ML PEN SC SCH ×4 (06:45→20:58)
[2016-12-04] MEDS: ALBUT/IPRATROP 3MG/0.5MG NEB 3 ML VIAL INH SCH ×4 (07:34→20:00)
[2016-12-04] MEDS ORDERED: EPOETIN ALFA 10,000 UNITS/ML VIAL IV. SCH (07:45)
[2016-12-04] MEDS: ALBUMIN HUMAN 25% 12.5 GM/50 ML VIAL IV SCH ×2 (08:00→08:21)
[2016-12-04] MEDS: HEPARIN SOD 5000 UNIT/0.5 ML CARP SQ SCH ×2 (08:15→21:00)
[2016-12-04] MEDS: PANTOprazole INJ 40 MG in SYRINGE 0 ML IV SCH (08:16)
[2016-12-04] MEDS: AMIODARONE 200 MG TAB PO SCH ×4 (08:16→20:59)
[2016-12-04] MEDS: DEXTROSE 50% 50 ML SYR IV PRN (08:16)
[2016-12-04] MEDS: GUAIFENESIN 600 MG TABCR PO SCH ×2 (08:17→20:59)
[2016-12-04] MEDS: ASPIRIN 81 MG ECTAB PO SCH (08:17)
[2016-12-04] MEDS: CLOPIDOGREL BISULFATE 75 MG TAB PO SCH (08:17)
[2016-12-04] MEDS: INSULIN GLARGINE SOLOSTAR 100 UNITS/ML 3 ML PEN SC SCH ×2 (08:17→21:01)
--- NOTE | 2016-12-04 09:06 | PROGRESS NOTE ---
DATE: 12/04/2016 The patient seen and examined. Chart, medications, telemetry reviewed. SUBJECTIVE: The patient is awake and without complaint, currently on dialysis. Notes no dizziness or lightheadedness. Notes no chest pain. Telemetry reveals the patient has remained in sinus rhythm. OBJECTIVE: VITAL SIGNS: Heart rate 67, blood pressure is 106/39. NECK: Thin. There is no jugular venous distention. There are no carotid bruits. LUNGS: Reveal few scattered crackles basilar. Predominantly are clear. CARDIOVASCULAR: Regular. There is no S3 gallop. ABDOMEN: Soft, nontender with moderate distention. EXTREMITIES: Without cyanosis or clubbing. There is no edema. IMAGING DATA: EKG this morning reveals sinus rhythm with first degree AV block, voltage criteria for left ventricular hypertrophy. QT corrected is 46. LABORATORY STUDIES: White cell count 16.9, hemoglobin is 8.9. Sodium is 132, potassium is 4.5, chloride is 94, bicarbonate 25, and creatinine is 5.0 prior to dialysis. IMPRESSION: A 71-year-old female with complex history of past ischemic heart disease, mixed etiology cardiomyopathy, longstanding hypertension, past diastolic heart failure, end-stage renal disease, admitted with acute sepsis, marked hypotension complicated by transient atrial fibrillation. The patient has converted back to sinus rhythm. In the past, she has been on oral amiodarone; this was inadvertently discontinued in October, we have resumed it and we will continue it at 200 mg q.i.d. for the next 2 days allowing heart rate and blood pressure to tolerate.
--- NOTE | 2016-12-04 10:09 | Medical Consult ---
Consultation Date of Consultation: Dec 04, 2016. Attending Physician: Melania Burleson MD Reason for Consultation: MDR UTI History of Present Illness Patient is an obese, diabetic 71 yo female with ESRD on hemodialysis well known to myself from previous infections who presented to the ED with altered mental status from [facility]. Much of her history regarding current admission was taken from previous records due to patient lethargy and inability to stay awake to answer questions properly. 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 She was unresponsive and making gurgling noises during her EMS ride to the hospital. Since admission, the patient was found to have MDR Pseudomonas growing from a urine culture along with MRSA positive nasal swab. Blood cultures have shown no growth to date. Initial chest X-ray showed development of bilateral perihilar opacities. CT of the abdomen showed cholelithiasis, large ventral hernia, and bibasal airspace opacities with bilateral lower lobe bronchial wall thickening. She was placed on IV Doxycycline, Ceftazidime, and Vancomycin. Her WBC count today is 16.90. Her Creatinine is 5.00. I did speak to Dr. Love and Jaymie James about this patient as well. Past Medical/Surgical History Medical Problems: (1) Acute electrocardiogram changes Status: Acute (2) Altered mental status Status: Acute (3) Altered mental status Status: Acute (4) Cellulitis Status: Acute (5) Elevated troponin Status: Acute (6) Epistaxis Status: Acute (7) PNA (pneumonia) Status: Acute (8) Respiratory failure Status: Acute (9) Sepsis Status: Acute (10) Sepsis Status: Acute (11) Vomiting Status: Acute Medical Problems: (1) Altered mental status (2) CAD (coronary artery disease) (3) Cellulitis of left lower extremity without foot (4) COPD (chronic obstructive pulmonary disease) (5) Depression (6) Diabetes mellitus type 2 in obese (7) Diastolic CHF (8) Dyslipidemia (9) Elevated troponin (10) End stage renal disease (11) End-stage renal disease on hemodialysis (12) ESRD (end stage renal disease) (13) Gout (14) HTN (hypertension) (15) Hyperkalemia (16) Hypothyroidism (17) 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 (18) Loss of consciousness (19) PAF (paroxysmal atrial fibrillation) (20) Pneumonia (21) Pseudomonas urinary tract infection (22) Recurrent epistaxis (23) Sepsis (24) Syncope (25) Syncope (26) UTI (urinary tract infection) Surgical Problems: (1) bilat ankle surgery (2) Hernia, abdominal (3) History of appendectomy (4) Nasal septoplasty (5) Repair of rotator cuff by suture (6) right elbow surgery Family History Cancer Heart disease Hypertension Noncontributory Social History Smoking Status: Former Smoker Smokeless Tobacco Use: No Alcohol Use: none Drug Use: none Marital Status: Housing Status: halfway Occupation Status: retired, disabled Allergies Coded Allergies: Amoxicillin (Verified Allergy, Intermediate, HIVES, 10/26/16) HAS TOLERATED CEFEPIME, KEFLEX, AND ROCEPHIN IN PAST ADMISSIONS Clavulanic Acid (Verified Allergy, Intermediate, HIVES, 10/26/16) hives NSAIDs (Unverified Allergy, Unknown, UNKNOWN, 10/26/16) JARET Inhibitors (Verified Adverse Reaction, Unknown, HYPERKALEMIA, 10/26/16 ) 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 Home Medications Reported Home Medications Medications Dose Route/Sig Max Daily Dose Days Date Category Dose Instructions Renvela (Sevelamer Carbonate) 800 Mg Tab 3,200 Mg PO TIDM 90 12/01/16 Reported Lasix (Furosemide) 20 Mg Tab 30 Mg PO BID 12/01/16 Reported Lantus Solostar (Insulin Glargine) 100 Unit/Ml Inj 8 Units SC Q12 12/01/16 Reported Tamiflu (Oseltamivir Phosphate) 30 Mg Cap 2 Cap PO 3XWK 5 12/01/16 Reported Spiriva [place]er (Tiotropium [place]) 30 Puff/540 Mcg Aerp 1 Cap INH DAILY 12/01/16 Reported Requip (Ropinirole HCl) 2 Mg Tab 2 Mg PO HS 12/01/16 Reported Nephrocaps (Vitamin B Complex/Vit C/Folic Acid) Cap 1 Cap PO DAILY 12/01/16 Reported Prilosec (Omeprazole) 20 Mg Capcr 2 Cap PO DAILY 12/01/16 Reported Insta-Glucose (Dextrose (Diabetic Use)) 77.4 % Gel 1 Appln PO UD PRN 10/23/16 Reported NEEDED FOR BSG <60 AND/CO SYMPTOMATIC PT MUST BE ABLE TO SAFELY SWALLOW Aspirin 81 (Aspirin) 81 Mg Tab 81 Mg PO DAILY 10/23/16 Reported Coreg (Carvedilol) 6.25 Mg Tab 6.25 Mg PO BID 10/17/16 Reported Apresoline (Hydralazine Hcl) 50 Mg Tab 50 Mg PO TID 10/09/16 Reported Guaifenesin Er (Guaifenesin) 600 Mg Tabcr 600 Mg PO Q12H 10/09/16 Reported Prednisone 10 Mg Tab 10 Mg PO DAILY 10/09/16 Reported Vitamin D 47381 Unit (Ergocalciferol) 50,000 Unit Cap 50,000 Unit PO WK 10/09/16 Reported TAKE EVERY SUNDAY FOR 4 WEEKS Plavix (Clopidogrel Bisulfate) 75 Mg Tab 75 Mg PO DAILY 10/09/16 Reported Docusate Sodium 100 Mg Cap 100 Mg PO BID 10/09/16 Reported Miralax (Polyethylene Glycol 3350) 1 Pow Pow 17 Gm PO BID 10/09/16 Reported Metamucil (Psyllium) 0.52 Gm Cap 2 Cap PO TID 10/09/16 Reported Lipitor (Atorvastatin) 40 Mg Tab 40 Mg PO HS 10/09/16 Reported Humalog (Insulin Human Lispro) Inj SC ACHS 03/19/16 Reported FOLLOWING SLIDING SCALE BSG INSULIN UNITS 0 - 150 0 UNITS 151 - 200 6 UNITS 201 - 250 8 UNITS 251-300 10 UNITS 301-350 12 UNITS > 351-400 16 UNITS 401 AND HIGHER - CALL Glucagon Emergency Kit (Glucagon) 1 Mg Kit 1 Appln IM UD PRN 02/23/16 Reported NEEDED FOR BLOOD GLUCOSE LESS THAN 60 AND/OR SYMPTOMATIC/UNRESPONSIVE HYPOGLYCEMIA. MAY REPEAT AFTER 15 MINUTES IF NEEDED. Albuterol Sulfate 1.25 Mg/3 Ml Neb 1 Vial NEB Q6H PRN 01/30/16 Reported Tums (Calcium Carbonate) 500 Mg Chew 500 Mg PO HS 01/28/16 Reported Zofran (Ondansetron HCl) 4 Mg Tab 4 Mg PO Q6H PRN 01/28/16 Reported Lexapro (Escitalopram Oxalate) 10 Mg Tab 10 Mg PO HS 01/28/16 Reported Oxygen Gas 2 Liters NA UD PRN 09/03/15 Reported MAINTAIN O2 SAT>90% Tylenol (Acetaminophen) 325 Mg Tab 650 Mg PO Q6H PRN 09/03/15 Reported NEEDED FOR MILD PAIN RATED 1-5 ON A SCALE OF "0-10 " OR FOR ELEVATED TEMPERATURE GREATER THAN 101 F. DO NOT EXCEED 3 GM APAP/24 HOURS. Renvela (Sevelamer Carbonate) 800 Mg Tab 1,600 Mg PO HS 02/01/15 Reported Neurontin (Gabapentin) Unknown Strength Cap Unknown Dose PO Q8 02/01/15 Reported Synthroid (Levothyroxine Sodium) 75 Mcg Tab 75 Mcg PO DAILY 09/24/14 Reported Zyloprim (Allopurinol) 100 Mg Tab 100 Mg PO DAILY 09/24/14 Reported Current Inpatient Medications Current Inpatient Medications Medications (Trade) Dose Ordered Sig/Gelacio Route Start Time Stop Time Status Last Admin Dose Admin Glucose (Glucose 40% Gel) 15-30 GRAMS 15 GRAMS... UD PRN PO 12/01/16 14:15 12/31/16 14:14 Glucose (Glucose Chew Tab) 4-8 Tablets 4 Tabl... UD PRN PO 12/01/16 14:15 12/31/16 14:14 Dextrose (Dextrose 50% 50ML Syringe) 25-50ML OF 50% DW IV FOR... UD PRN IV 12/01/16 14:15 12/31/16 14:14 12/04/16 08:16 50 ML Glucagon (Glucagon Inj) 1 mg UD PRN SQ 12/01/16 14:15 12/31/16 14:14 Miscellaneous Information (Consult Glycemic Management Pharmacy) 1 ea UD N/A 12/01/16 14:34 12/31/16 14:33 Acetaminophen (Tylenol Tab) 650 mg Q4H PRN PO 12/01/16 14:15 12/31/16 14:14 12/04/16 06:13 650 MG Nitroglycerin 0.4 mg 0.4 mg UD PRN SL 12/01/16 14:15 12/31/16 14:14 Pantoprazole Sodium/Syringe (Protonix Inj/ Syringe) 10 ml @ 5 mls/min DAILY IV 12/02/16 09:00 01/01/17 08:59 12/04/16 08:16 5 MLS/MIN Albuterol/ Ipratropium (Duoneb) 3 ml QIDR INH 12/01/16 16:00 12/31/16 15:59 12/04/16 07:34 3 ML Aspirin (Ecotrin Tab) 81 mg DAILY PO 12/02/16 09:00 01/01/17 08:59 12/03/16 07:27 81 MG Atorvastatin Calcium (Lipitor Tab) 40 mg HS PO 12/01/16 21:00 12/31/16 20:59 12/03/16 20:06 40 MG Clopidogrel Bisulfate (plAVix TAB) 75 mg DAILY PO 12/02/16 09:00 01/01/17 08:59 12/03/16 07:27 75 MG Escitalopram Oxalate (Lexapro Tab) 10 mg HS PO 12/01/16 21:00 12/31/16 20:59 12/03/16 20:06 10 MG Guaifenesin (Mucinex Contr Rel Tab) 600 mg Q12 PO 12/01/16 21:00 12/31/16 20:59 12/03/16 20:06 600 MG Insulin Glargine (Lantus Solostar Pen) 0 units if BSG less than 100... Q12 SC 12/01/16 21:00 12/31/16 20:59 12/03/16 20:15 8 UNIT Levothyroxine Sodium (Synthroid Tab) 75 mcg DAILYBB PO 12/02/16 06:00 01/01/17 05:59 12/04/16 06:13 75 MCG Albuterol/ Ipratropium (Duoneb) 3 ml Q2R PRN INH 12/01/16 14:45 12/31/16 14:44 Vancomycin HCl 1 ea 1 ea UD PRN N/A 12/01/16 15:15 12/31/16 15:14 Norepinephrine Bitartrate 8 mg/ Dextrose 508 ml @ 0 mls/hr Q0M PRN IV 12/01/16 15:15 12/31/16 15:14 12/03/16 06:33 8 MLS/HR Doxycycline Hyclate/Dextrose (Vibramycin IV/ D5 100ml) 110 ml @ 50 mls/hr DAILY@1200 IV 12/02/16 12:00 12/08/16 14:11 12/03/16 11:48 50 MLS/HR Acetaminophen (Ofirmev Iv) 1,000 mg Q8H PRN IV 12/02/16 16:30 01/01/17 16:29 12/02/16 16:35 1,000 MG Ioversol (Optiray 320) 125 ml UD PRN IV 12/03/16 11:15 12/07/16 11:14 Heparin Sodium (Porcine) (Heparin Sq 5000 Unit/0.5ml) 5,000 unit Q12 SQ 12/03/16 21:00 01/02/17 20:59 12/04/16 08:15 5,000 UNIT Metoprolol Tartrate (Lopressor Iv) 5 mg Q4 PRN IV 12/03/16 12:15 01/02/17 12:14 Amiodarone HCl 200 mg 200 mg QID PO 12/03/16 13:00 01/02/17 12:59 12/03/16 20:06 200 MG Ceftazidime/ Dextrose (F0rtaz Iv/ Dextrose Add-[place] 50ML) 50 ml @ 100 mls/hr DAILY@1400 IV 12/03/16 14:00 12/13/16 13:59 12/03/16 14:03 100 MLS/HR Miscellaneous Information (Pharmacy Consult) 1 ea UD PRN N/A 12/03/16 13:45 01/02/17 13:44 Insulin Aspart (novoLOG ASPART) SLIDING SCALE If C... ACHS SC 12/03/16 16:00 01/02/17 15:59 12/03/16 20:15 3 UNITS Insulin Aspart (novoLOG ASPART) SLIDING SCALE If C... 0200 SC 12/04/16 02:00 01/03/17 01:59 Epoetin Sammy (Procrit Inj) 10,000 units TODAY@0745 IV. 12/04/16 07:45 12/04/16 18:00 Albumin Human 12.5 gm 12.5 gm TODAY@0745,0845 IV 12/04/16 07:45 12/04/16 18:00 12/04/16 08:21 12.5 GM Vancomycin HCl/ Sodium Chloride (Vancomycin Inj/ Nss 250ml) 260 ml @ 125 mls/hr TODAY@1200 ONCE IV 12/04/16 12:00 12/04/16 14:04 Physical Exam Date Time Temp Pulse Resp B/P Pulse Ox O2 Delivery O2 Flow Rate FiO2 12/04/16 09:45 69 126/44 12/04/16 09:30 69 109/42 12/04/16 09:15 69 111/41 12/04/16 09:00 66 103/39 12/04/16 08:45 67 94/38 12/04/16 08:30 70 106/39 12/04/16 08:15 65 92/33 12/04/16 08:10 66 97/31 12/04/16 08:00 38.5 67 90/30 12/04/16 07:34 68 18 100 Room Air 12/04/16 06:00 38.5 77 105/27 100 Room Air 12/04/16 04:00 38.6 107/66 Room Air 12/04/16 04:00 100 Room Air 12/04/16 02:00 72 92/35 100 Room Air 12/04/16 00:00 36.9 67 130/57 100 BiPAP 40 12/04/16 00:00 100 BiPAP 40 12/03/16 22:23 59 100 40 12/03/16 22:00 59 17 116/57 100 BiPAP 40 12/03/16 20:26 65 18 100 Room Air 12/03/16 20:00 100 Room Air 12/03/16 20:00 36.8 65 18 110/40 100 Room Air 12/03/16 20:00 108/50 12/03/16 17:59 62 20 96/37 100 Room Air 12/03/16 17:00 63 20 107/43 100 12/03/16 16:01 63 118/34 100 12/03/16 15:58 37.0 63 18 122/51 100 Room Air 12/03/16 15:50 100 Room Air 12/03/16 15:29 63 18 100 Room Air 12/03/16 15:01 65 125/41 100 12/03/16 14:59 65 119/41 100 12/03/16 14:01 67 118/41 100 12/03/16 14:00 67 18 132/39 99 Room Air 12/03/16 12:00 Room Air 12/03/16 12:00 37.0 99 18 121/66 99 Room Air 12/03/16 11:55 81 18 100 Room Air General Appearance: no apparent distress, + obese Head: normocephalic, atraumatic Eyes: normal inspection ENT: hearing grossly normal Neck: supple, trachea midline Respiratory/Chest: chest non-tender, no respiratory distress, no accessory muscle use, + pertinent finding (course breath sounds throughout bilateral lungs. Decreased breath sounds bases) Cardiovascular: regular rate, rhythm, + pertinent finding (distant ) Abdomen/GI: normal bowel sounds, non tender, soft, + pertinent finding (large ventral hernia) Extremities/Musculoskelatal: normal inspection, + pertinent finding (trace edema bilateral lower extremities) Neurologic/Psych: + pertinent finding (lethargic) Skin: normal color, warm/dry, no rash Laboratory Results CHEST ONE VIEW PORTABLE CLINICAL HISTORY: hypoxia COMPARISON STUDY: 12/02/2016 FINDINGS: The heart remains enlarged. There is congestive failure/pulmonary edema, similar to the prior study. There is mild mediastinal widening. Left infrahilar airspace opacities are suspected.[ IMPRESSION: 1. Stable findings 2. Cardiomegaly with radiographic evidence of congestive failure/pulmonary edema 3. Stable mediastinal widening 4. Stable left infrahilar airspace opacities PATIENT: AMBER CORREA LOC: [facility] U # : [id number] AGE/SX: 71/F ROOM: [facility] REG : 12/01/[address]: Melania Burleson MD : 1945 BED: 1 DIS : STATUS: ADM IN TLOC: SPEC #: [id number] MANNIE: 12/01/16-UNK STATUS: COMP REQ #: [id number] RECD: 12/01/[address]: Latrice Charles MD SOURCE: URINE CATH ENTR: 12/01/[address]: Sánchez Nguyen MD , PhD [facility]: Milton Palumbo DO Shippert, Brian W. , Bam Michaud, Mundo Raza MD [facility] ORDERED: CULTURE UR CATH Procedure Result Verified Site URINE CULTURE Final 12/03/16 Organism 1 PSEUDOMONAS AERUGINOSA COLONY COUNT >100,000 CFU/ml SENS SENSITIVITY TO FOLLOW 1. PSEUDOMONAS AERUGINOSA Target Route Dose RX AB Cost M.I.C. IQ ------ ----- ------ -- ------ -------- - ------ CEFTAZIDIME S 8 CEFEPIME S 8 IMIPENEM S <=1 AZTREONAM I 16 GENTAMICIN R >8 TOBRAMYCIN R >8 AMIKACIN S <=16 CIPROFLOXACIN R >2 LEVOFLOXACIN R >4 PIP/TAZO S 64 S = SENSITIVE I = INTERMEDIATE R = RESISTANT Item Value Date Time Blood Culture - Preliminary Resulted 12/01/16 0953 Blood NO GROWTH TO DATE. Blood Culture - Preliminary Resulted 12/01/16 0953 Blood NO GROWTH TO DATE. Urine Culture - Final Complete 12/01/16 0000 Urine,Catheterized Pseudomonas Aeruginosa MRSA DNA Surveillance Screen - Final Complete 12/01/16 0000 Nasal Specimen Positive for MRSA by DNA Probe CT ABD/PELVIS IV CONTRAST ONLY CLINICAL HISTORY: Back pain. Possible retroperitoneal hemorrhage. COMPARISON STUDY: 05/16/2016 TECHNIQUE: Following the IV administration of 93 mL of Optiray-320, CT scan of the abdomen and pelvis was performed from the lung bases to the proximal femurs. Images are reviewed in the axial, sagittal, and coronal planes. IV contrast was administered without complication. CT DOSE: 1662.96 mGy.cm FINDINGS: Lower chest: The heart is enlarged. There are trace pleural effusions. There are bibasal airspace is opacities with bilateral bronchial wall thickening. There is a hiatal hernia Liver: The contrast-enhanced liver is normal in size, contour, and attenuation. There is no intrahepatic biliary ductal dilatation. The hepatic veins and portal veins are patent. Gallbladder: Cholelithiasis. Mild gallbladder distention. Spleen: There is a stable 14 mm posterior perisplenic nodule Pancreas: Unremarkable. Adrenal glands: Unremarkable. Kidneys: There is a stable 1 cm lower pole right renal hypodensity, likely representing a cyst. Bowel: There are no transition zones indicate bowel obstruction. There is moderate stool present throughout the colon. There is a large fat-containing ventral hernia. There is no evidence of acute diverticulitis. There are no findings to indicate acute appendicitis. Peritoneum: There is no free air. There is no evidence of ascites. There are no findings to indicate a retroperitoneal hemorrhage. Vasculature: There are extensive atherosclerotic calcifications throughout the arterial system of the abdomen Adenopathy: None. Pelvic viscera: The bladder, and pelvic viscera are unremarkable. Skeletal structures: There are endplate erosive changes at the L3-4 level. These were present on the prior May 27 study, and are therefore likely discogenic basis IMPRESSION: 1. No evidence of bowel obstruction. No evidence of free air 2. Hiatal hernia 3. Cholelithiasis with mild gallbladder distention 4. Large fat-containing periumbilical ventral hernia 5. Persistent L3-4 endplate erosive changes 6. No evidence of retroperitoneal hemorrhage 7. Trace pleural effusions. Bibasal airspace opacities with bilateral lower lobe bronchial wall thickening Last 24 Hours Test 12/03/16 11:48 12/03/16 16:00 12/03/16 20:00 12/04/16 01:53 Bedside Glucose 134 mg/dl 129 mg/dl 170 mg/dl 76 mg/dl Test 12/04/16 02:22 12/04/16 03:55 12/04/16 05:20 12/04/16 06:05 Bedside Glucose 88 mg/dl 102 mg/dl 88 mg/dl White Blood Count 16.90 K/uL Red Blood Count 2.78 M/uL Hemoglobin 8.9 g/dL Hematocrit 27.6 % Mean Corpuscular Volume 99.3 fL Mean Corpuscular Hemoglobin 32.0 pg Mean Corpuscular Hemoglobin Concent 32.2 g/dl Platelet Count 122 K/uL Mean Platelet Volume 11.0 fL Neutrophils (%) (Auto) 91.6 % Lymphocytes (%) (Auto) 3.0 % Monocytes (%) (Auto) 4.3 % Eosinophils (%) (Auto) 0.5 % Basophils (%) (Auto) 0.1 % Neutrophils # (Auto) 15.48 K/uL Lymphocytes # (Auto) 0.51 K/uL Monocytes # (Auto) 0.73 K/uL Eosinophils # (Auto) 0.08 K/uL Basophils # (Auto) 0.01 K/uL RDW Standard Deviation 62.7 fL RDW Coefficient of Variation 17.2 % Immature Granulocyte % (Auto) 0.5 % Immature Granulocyte # (Auto) 0.09 K/uL Nucleated RBC Absolute Count (auto) 0.05 K/uL Nucleated Red Blood Cells % 0.3 % Red Blood Cell Morphology Unremarkable Sodium Level 132 mmol/L Potassium Level 4.5 mmol/L Chloride Level 94 mmol/L Carbon Dioxide Level 25 mmol/L Anion Gap 13.0 mmol/L Blood Urea Nitrogen 54 mg/dl Creatinine 5.00 mg/dl Est Creatinine Clear Calc Drug Dose 13.2 ml/min Estimated GFR () 9.4 Estimated GFR (Non- 8.1 BUN/Creatinine Ratio 10.8 Random Glucose 78 mg/dl Calcium Level 8.5 mg/dl Magnesium Level 2.0 mg/dl Random Vancomycin Level 19.1 mcg/ml Test 12/04/16 07:51 Bedside Glucose 77 mg/dl Assessment & Plan Patient with probable bibasilar pneumonia, possibly aspiration pna with altered mental status and Pseudomonas UTI. She is currently on IV Vancomycin, Doxycycline, and Ceftazidime. After reviewing the GITA's of her culture, feel that Imipenem would be a better choice for her UTI. Therefore, will D/C IV Ceftazidime and begin IV Imipenem. Also will D/C Doxycycline but continue Vancomycin with positive MRSA nasal swab and bilateral pneumonia. Then she will have coverage for anaerobic bacteremia and UTI with Imipenem and MRSA coverage with Vancomycin. We will continue to follow and adjust abx as able. Plan: 1. Continue Vancomycin 2. D/C Doxycycline and Ceftazidime 3. Start IV Primaxin PROVIDER ADDENDUM: Patient examined and reviewed with Ms. Blackwell. Agree with above assessment.
[2016-12-04] MEDS ORDERED: IMIPENEM/CILASTATIN CONSULT ACTIVE PRN (10:30)
[2016-12-04] MEDS ORDERED: VANCOMYCIN INJ 500 MG in SODIUM CHLORIDE 0.9% 250ML 250 ML IV ONE (12:00)
--- NOTE | 2016-12-04 13:22 | Palliative Care Consultation ---
Consultation Date of Consultation: Dec 04, 2016. Requesting Physician: Leslie James PA-C Attending Physician: Dr. Nguyen Reason for Consultation: Goals of care History of Present Illness This 71 year old female patient presented to the ED three days ago from the [facility] where she resides with complaints of unresponsiveness. Per report, Peyton stated she was not feeling well the day of admission, she took a nap, and the staff found her later to be unresponsive. In the ED, she had a pH of 7.18, pCO2 of 64, and a pO2 of 49 on 2LNC. Her CXR showed pulmonary edema vs. bilateral pneumonia. Apparently Peyton was awake enough in the ED to tell the physicians that she did not want to be placed on a mechanical ventilator. She was placed on Bipap, started on several antibiotics, started on norepinephrine for hypotension and admitted to the ICU. Patient also has a history of end-stage renal disease, chronically on dialysis. She was seen by Dr. Palumbo and did receive dialysis today. She is more awake, but still confused with underlying dementia. The patient maintains that she would not want intubation, but is unclear on her goals of care. Palliative care consulted to assist. I met with the patient in her room. She is awake but very confused. She did answer some questions appropriately, but thinks she is in [place] and has no knowledge of why she is in the hospital. We discussed goals of care, the patient did actually confirm that she would not want intubation or to "live on machines." If she continue to decline and had no hope for meaningful recovery or quality of life, she would just want to be made comfortable. However, she stated she would still want CPR if she had no pulse. She doesn't seem to truly grasp her situation or medical conditions. Her POA is her sister, Feli Colmenares, who lives in [place] and does not visit very often. She told me that Feli is the one she would choose to make medical decisions for her. Past Medical/Surgical History Medical History: CAD (coronary artery disease) s/p LAD stent 2011 Cellulitis of left lower extremity without foot COPD (chronic obstructive pulmonary disease) Permanent Comment: on chronic prednisone Depression Diabetes mellitus type 2 in obese Diastolic CHF Permanent Comment: echo 05/31/16 LVEF 55-60% with mild concentric L ventricular hypertrophy Dyslipidemia End-stage renal disease on hemodialysis Gout HTN (hypertension) Hyperkalemia Hypothyroidism Loss of consciousness PAF (paroxysmal atrial fibrillation) Recurrent epistaxis Surgical History: Bilateral ankle surgery Hernia, abdominal Appendectomy Nasal septoplasty Repair of rotator cuff by suture Right elbow surgery Social History Smoking Status: Former Smoker History of Alcohol Use: No Drug Use: none Marital Status: Housing Status: custodial Occupation Status: retired, disabled Review of Systems Constitutional: + weakness, No chills, No fever Respiratory: No cough, No dyspnea on exertion, No shortness of breath Cardiac: No chest pain Abdomen: No nausea, No pain, No vomiting Female : No problem reported Allergies Coded Allergies: Amoxicillin (Verified Allergy, Intermediate, HIVES, 10/26/16) HAS TOLERATED CEFEPIME, KEFLEX, AND ROCEPHIN IN PAST ADMISSIONS Clavulanic Acid (Verified Allergy, Intermediate, HIVES, 10/26/16) hives NSAIDs (Unverified Allergy, Unknown, UNKNOWN, 10/26/16) JARET Inhibitors (Verified Adverse Reaction, Unknown, HYPERKALEMIA, 10/26/16 ) 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 Medications Current Inpatient Medications Medications (Trade) Dose Ordered Sig/Gelacio Route Start Time Stop Time Status Last Admin Dose Admin Glucose (Glucose 40% Gel) 15-30 GRAMS 15 GRAMS... UD PRN PO 12/01/16 14:15 12/31/16 14:14 Glucose (Glucose Chew Tab) 4-8 Tablets 4 Tabl... UD PRN PO 12/01/16 14:15 12/31/16 14:14 Dextrose (Dextrose 50% 50ML Syringe) 25-50ML OF 50% DW IV FOR... UD PRN IV 12/01/16 14:15 12/31/16 14:14 12/04/16 08:16 50 ML Glucagon (Glucagon Inj) 1 mg UD PRN SQ 12/01/16 14:15 12/31/16 14:14 Miscellaneous Information (Consult Glycemic Management Pharmacy) 1 ea UD N/A 12/01/16 14:34 12/31/16 14:33 Acetaminophen (Tylenol Tab) 650 mg Q4H PRN PO 12/01/16 14:15 12/31/16 14:14 12/04/16 06:13 650 MG Nitroglycerin 0.4 mg 0.4 mg UD PRN SL 12/01/16 14:15 12/31/16 14:14 Pantoprazole Sodium/Syringe (Protonix Inj/ Syringe) 10 ml @ 5 mls/min DAILY IV 12/02/16 09:00 01/01/17 08:59 12/04/16 08:16 5 MLS/MIN Albuterol/ Ipratropium (Duoneb) 3 ml QIDR INH 12/01/16 16:00 12/31/16 15:59 12/04/16 07:34 3 ML Aspirin (Ecotrin Tab) 81 mg DAILY PO 12/02/16 09:00 01/01/17 08:59 12/03/16 07:27 81 MG Atorvastatin Calcium (Lipitor Tab) 40 mg HS PO 12/01/16 21:00 12/31/16 20:59 12/03/16 20:06 40 MG Clopidogrel Bisulfate (plAVix TAB) 75 mg DAILY PO 12/02/16 09:00 01/01/17 08:59 12/03/16 07:27 75 MG Escitalopram Oxalate (Lexapro Tab) 10 mg HS PO 12/01/16 21:00 12/31/16 20:59 12/03/16 20:06 10 MG Guaifenesin (Mucinex Contr Rel Tab) 600 mg Q12 PO 12/01/16 21:00 12/31/16 20:59 12/03/16 20:06 600 MG Insulin Glargine (Lantus Solostar Pen) 0 units if BSG less than 100... Q12 SC 12/01/16 21:00 12/31/16 20:59 12/03/16 20:15 8 UNIT Levothyroxine Sodium (Synthroid Tab) 75 mcg DAILYBB PO 12/02/16 06:00 01/01/17 05:59 12/04/16 06:13 75 MCG Albuterol/ Ipratropium (Duoneb) 3 ml Q2R PRN INH 12/01/16 14:45 12/31/16 14:44 Vancomycin HCl 1 ea 1 ea UD PRN N/A 12/01/16 15:15 12/31/16 15:14 Norepinephrine Bitartrate/ Dextrose (Levophed Inj/ D5W 500ml) 508 ml @ 0 mls/hr Q0M PRN IV 12/01/16 15:15 12/31/16 15:14 12/03/16 06:33 8 MLS/HR Acetaminophen (Ofirmev Iv) 1,000 mg Q8H PRN IV 12/02/16 16:30 01/01/17 16:29 12/02/16 16:35 1,000 MG Ioversol (Optiray 320) 125 ml UD PRN IV 12/03/16 11:15 12/07/16 11:14 Heparin Sodium (Porcine) (Heparin Sq 5000 Unit/0.5ml) 5,000 unit Q12 SQ 12/03/16 21:00 01/02/17 20:59 12/04/16 08:15 5,000 UNIT Metoprolol Tartrate (Lopressor Iv) 5 mg Q4 PRN IV 12/03/16 12:15 01/02/17 12:14 Amiodarone HCl (Cordarone Tab) 200 mg QID PO 12/03/16 13:00 01/02/17 12:59 12/04/16 11:57 200 MG Insulin Aspart (novoLOG ASPART) SLIDING SCALE If C... ACHS SC 12/03/16 16:00 01/02/17 15:59 12/03/16 20:15 3 UNITS Epoetin Sammy (Procrit Inj) 10,000 units TODAY@0745 IV. 12/04/16 07:45 12/04/16 18:00 12/04/16 10:00 10,000 UNITS Albumin Human 12.5 gm 12.5 gm TODAY@0745,0845 IV 12/04/16 07:45 12/04/16 18:00 12/04/16 08:21 12.5 GM Vancomycin HCl 500 mg/Sodium Chloride 260 ml @ 125 mls/hr TODAY@1200 ONCE IV 12/04/16 12:00 12/04/16 14:04 12/04/16 11:56 125 MLS/HR Imipenem/ Cilastatin Sodium/ Dextrose (Primaxin Iv/D5 100ml) 110 ml @ 100 mls/hr Q12H IV 12/04/16 14:00 12/14/16 13:59 Imipenem/ Cilastatin Sodium (Consult) 1 ea UD PRN N/A 12/04/16 10:30 01/03/17 10:29 Modafinil (proVIGIL TAB) 100 mg QAM PO 12/05/16 09:00 01/04/17 08:59 Physical Exam Date Time Temp Pulse Resp B/P Pulse Ox O2 Delivery O2 Flow Rate FiO2 12/04/16 11:15 37.0 76 123/33 12/04/16 11:00 71 132/49 12/04/16 10:45 72 125/42 12/04/16 10:30 70 118/36 12/04/16 10:15 69 127/42 12/04/16 10:00 70 124/49 12/04/16 10:00 70 20 126/44 100 Room Air 12/04/16 09:45 69 126/44 12/04/16 09:30 69 109/42 12/04/16 09:15 69 111/41 12/04/16 09:00 66 103/39 12/04/16 08:45 67 94/38 12/04/16 08:30 70 106/39 12/04/16 08:15 65 92/33 12/04/16 08:10 66 97/31 12/04/16 08:00 Room Air 12/04/16 08:00 37.2 68 16 111/41 100 Room Air 12/04/16 08:00 38.5 67 90/30 12/04/16 07:34 68 18 100 Room Air 12/04/16 06:00 38.5 77 105/27 100 Room Air 12/04/16 04:00 38.6 107/66 Room Air 12/04/16 04:00 100 Room Air 12/04/16 02:00 72 92/35 100 Room Air 12/04/16 00:00 36.9 67 130/57 100 BiPAP 40 12/04/16 00:00 100 BiPAP 40 12/03/16 22:23 59 100 40 12/03/16 22:00 59 17 116/57 100 BiPAP 40 12/03/16 20:26 65 18 100 Room Air 12/03/16 20:00 100 Room Air 12/03/16 20:00 36.8 65 18 110/40 100 Room Air 12/03/16 20:00 108/50 12/03/16 17:59 62 20 96/37 100 Room Air 12/03/16 17:00 63 20 107/43 100 12/03/16 16:01 63 118/34 100 12/03/16 15:58 37.0 63 18 122/51 100 Room Air 12/03/16 15:50 100 Room Air 12/03/16 15:29 63 18 100 Room Air 12/03/16 15:01 65 125/41 100 12/03/16 14:59 65 119/41 100 12/03/16 14:01 67 118/41 100 12/03/16 14:00 67 18 132/39 99 Room Air General Appearance: no apparent distress, + obese, + pertinent finding ( chronically ill appearing) Eyes: + pertinent finding (right orbital ecchymosis) Neck: no JVD Respiratory: no respiratory distress, no accessory muscle use, + decreased breath sounds, + crackles (bilateral lower lobes), + pertinent finding (room air ) Cardiovascular: no edema, + irregularly irregular, + pertinent finding (weak pedal pulses) Abdomen: normal bowel sounds, non tender, soft, + pertinent finding (obese abdomen) Musculoskeletal: pertinent finding (thin extremities) Skin: + pertinent finding (left upper arm fistula) Laboratory Results Last 24 Hours Test 12/03/16 16:00 12/03/16 20:00 12/04/16 01:53 12/04/16 02:22 Bedside Glucose 129 mg/dl 170 mg/dl 76 mg/dl 88 mg/dl Test 12/04/16 03:55 12/04/16 05:20 12/04/16 06:05 12/04/16 07:51 Bedside Glucose 102 mg/dl 88 mg/dl 77 mg/dl White Blood Count 16.90 K/uL Red Blood Count 2.78 M/uL Hemoglobin 8.9 g/dL Hematocrit 27.6 % Mean Corpuscular Volume 99.3 fL Mean Corpuscular Hemoglobin 32.0 pg Mean Corpuscular Hemoglobin Concent 32.2 g/dl Platelet Count 122 K/uL Mean Platelet Volume 11.0 fL Neutrophils (%) (Auto) 91.6 % Lymphocytes (%) (Auto) 3.0 % Monocytes (%) (Auto) 4.3 % Eosinophils (%) (Auto) 0.5 % Basophils (%) (Auto) 0.1 % Neutrophils # (Auto) 15.48 K/uL Lymphocytes # (Auto) 0.51 K/uL Monocytes # (Auto) 0.73 K/uL Eosinophils # (Auto) 0.08 K/uL Basophils # (Auto) 0.01 K/uL RDW Standard Deviation 62.7 fL RDW Coefficient of Variation 17.2 % Immature Granulocyte % (Auto) 0.5 % Immature Granulocyte # (Auto) 0.09 K/uL Nucleated RBC Absolute Count (auto) 0.05 K/uL Nucleated Red Blood Cells % 0.3 % Red Blood Cell Morphology Unremarkable Sodium Level 132 mmol/L Potassium Level 4.5 mmol/L Chloride Level 94 mmol/L Carbon Dioxide Level 25 mmol/L Anion Gap 13.0 mmol/L Blood Urea Nitrogen 54 mg/dl Creatinine 5.00 mg/dl Est Creatinine Clear Calc Drug Dose 13.2 ml/min Estimated GFR () 9.4 Estimated GFR (Non- 8.1 BUN/Creatinine Ratio 10.8 Random Glucose 78 mg/dl Calcium Level 8.5 mg/dl Magnesium Level 2.0 mg/dl Random Vancomycin Level 19.1 mcg/ml Test 12/04/16 11:00 Bedside Glucose 94 mg/dl Assessment & Plan Palliative Performance Scale: 40 % Problem list: Weakness Confusion/encephalopathy superimposed on dementia Sepsis 2/2 UTI- E. coli Hypercapnic respiratory failure ESRD on dialysis Anemia Goals of care (Z51.5) Palliative care plan: Discussed with Dr. Love. Patient did state she would not want any intubation. She does not seem to be oriented enough in order to solely make good decisions for herself. She wants to continue dialysis and continue current treatment for now. I spoke with case liner who is going to call Peyton's sister and call the [facility] to see if they have any sort of legal paperwork regarding decision making or goals of care. For now, would make patient a DNI. Thank you for this consult. I will follow.
[2016-12-04] MEDS: IMIPENEM/CILASTATIN IV 500 MG in DEXTROSE 5% 100ML 100 ML IV SCH (14:34)
--- NOTE | 2016-12-04 15:16 | Critical Care Progress Note ---
Critical Care Progress Note Date of Service Dec 04, 2016. Attending Dr. Love Subjective no events overnight, the pt is dozing occasionally, bipap was used overnight. ongoing dialysis today. Objective Gen. alert: Pleasant HEENT normocephalic atraumatic Cardiovascular S1-S2 Pulmonary scattered Rales bilaterally Abdomen: Soft nondistended nontender Genitourinary: Normal external genitalia Skin: Pale, warm dry intact denies pain and no sob, no cough, s1s2 RRR, lungs are clear, abdomen is benign. no edema. neuro the pt with EDS and could not stay awake to complete her conversation. Assessment & Plan A/P; 1- CKD on dialysis. 2- acute on chronic resp failure. 3- met acidosis. 4- the presence of EDS is highly suggestive of SRBD or parasomnia. Plan: 1- continue current treatment. 2- the pt wants to be DNI. but ok to use the bipap. 3- start Provigil for EDS. the pt needs a dedicated MSLT following a PSG. 4- discussed with the staff on rounds in details. also, discussed with the pt as well. 5- can be transferred to regular floor. CCT 45 min. Data Medications: Current Inpatient Medications Medications (Trade) Dose Ordered Sig/Gelacio Route Start Time Stop Time Status Last Admin Dose Admin Glucose (Glucose 40% Gel) 15-30 GRAMS 15 GRAMS... UD PRN PO 12/01/16 14:15 12/31/16 14:14 Glucose (Glucose Chew Tab) 4-8 Tablets 4 Tabl... UD PRN PO 12/01/16 14:15 12/31/16 14:14 Dextrose (Dextrose 50% 50ML Syringe) 25-50ML OF 50% DW IV FOR... UD PRN IV 12/01/16 14:15 12/31/16 14:14 12/04/16 08:16 50 ML Glucagon (Glucagon Inj) 1 mg UD PRN SQ 12/01/16 14:15 12/31/16 14:14 Miscellaneous Information (Consult Glycemic Management Pharmacy) 1 ea UD N/A 12/01/16 14:34 12/31/16 14:33 Acetaminophen (Tylenol Tab) 650 mg Q4H PRN PO 12/01/16 14:15 12/31/16 14:14 12/04/16 06:13 650 MG Nitroglycerin 0.4 mg 0.4 mg UD PRN SL 12/01/16 14:15 12/31/16 14:14 Pantoprazole Sodium/Syringe (Protonix Inj/ Syringe) 10 ml @ 5 mls/min DAILY IV 12/02/16 09:00 01/01/17 08:59 12/04/16 08:16 5 MLS/MIN Albuterol/ Ipratropium (Duoneb) 3 ml QIDR INH 12/01/16 16:00 12/31/16 15:59 12/04/16 07:34 3 ML Aspirin (Ecotrin Tab) 81 mg DAILY PO 12/02/16 09:00 01/01/17 08:59 12/03/16 07:27 81 MG Atorvastatin Calcium (Lipitor Tab) 40 mg HS PO 12/01/16 21:00 12/31/16 20:59 12/03/16 20:06 40 MG Clopidogrel Bisulfate (plAVix TAB) 75 mg DAILY PO 12/02/16 09:00 01/01/17 08:59 12/03/16 07:27 75 MG Escitalopram Oxalate (Lexapro Tab) 10 mg HS PO 12/01/16 21:00 12/31/16 20:59 12/03/16 20:06 10 MG Guaifenesin (Mucinex Contr Rel Tab) 600 mg Q12 PO 12/01/16 21:00 12/31/16 20:59 12/03/16 20:06 600 MG Insulin Glargine (Lantus Solostar Pen) 0 units if BSG less than 100... Q12 SC 12/01/16 21:00 12/31/16 20:59 12/03/16 20:15 8 UNIT Levothyroxine Sodium (Synthroid Tab) 75 mcg DAILYBB PO 12/02/16 06:00 01/01/17 05:59 12/04/16 06:13 75 MCG Albuterol/ Ipratropium (Duoneb) 3 ml Q2R PRN INH 12/01/16 14:45 12/31/16 14:44 Vancomycin HCl 1 ea 1 ea UD PRN N/A 12/01/16 15:15 12/31/16 15:14 Norepinephrine Bitartrate/ Dextrose (Levophed Inj/ D5W 500ml) 508 ml @ 0 mls/hr Q0M PRN IV 12/01/16 15:15 12/31/16 15:14 12/03/16 06:33 8 MLS/HR Acetaminophen (Ofirmev Iv) 1,000 mg Q8H PRN IV 12/02/16 16:30 01/01/17 16:29 12/02/16 16:35 1,000 MG Ioversol (Optiray 320) 125 ml UD PRN IV 12/03/16 11:15 12/07/16 11:14 Heparin Sodium (Porcine) (Heparin Sq 5000 Unit/0.5ml) 5,000 unit Q12 SQ 12/03/16 21:00 01/02/17 20:59 12/04/16 08:15 5,000 UNIT Metoprolol Tartrate (Lopressor Iv) 5 mg Q4 PRN IV 12/03/16 12:15 01/02/17 12:14 Amiodarone HCl (Cordarone Tab) 200 mg QID PO 12/03/16 13:00 01/02/17 12:59 12/04/16 11:57 200 MG Insulin Aspart (novoLOG ASPART) SLIDING SCALE If C... ACHS SC 12/03/16 16:00 01/02/17 15:59 12/03/16 20:15 3 UNITS Epoetin Sammy (Procrit Inj) 10,000 units TODAY@0745 IV. 12/04/16 07:45 12/04/16 18:00 12/04/16 10:00 10,000 UNITS Albumin Human 12.5 gm 12.5 gm TODAY@0745,0845 IV 12/04/16 07:45 12/04/16 18:00 12/04/16 08:21 12.5 GM Imipenem/ Cilastatin Sodium/ Dextrose (Primaxin Iv/D5 100ml) 110 ml @ 100 mls/hr Q12H IV 12/04/16 14:00 12/14/16 13:59 12/04/16 14:34 100 MLS/HR Imipenem/ Cilastatin Sodium (Consult) 1 ea UD PRN N/A 12/04/16 10:30 01/03/17 10:29 Modafinil (proVIGIL TAB) 100 mg QAM PO 12/05/16 09:00 01/04/17 08:59 I & O: 24-Hour Column 12/04/16 08:00 Intake Total 882 ml Balance 882 ml Vital Signs: Date Time Temp Pulse Resp B/P Pulse Ox O2 Delivery O2 Flow Rate FiO2 12/04/16 14:00 37.0 82 20 126/46 100 Room Air 12/04/16 12:00 Room Air 12/04/16 12:00 76 20 127/43 100 Room Air 12/04/16 11:15 37.0 76 123/33 12/04/16 11:00 71 132/49 12/04/16 10:45 72 125/42 12/04/16 10:30 70 118/36 12/04/16 10:15 69 127/42 12/04/16 10:00 70 124/49 12/04/16 10:00 70 20 126/44 100 Room Air 12/04/16 09:45 69 126/44 12/04/16 09:30 69 109/42 12/04/16 09:15 69 111/41 12/04/16 09:00 66 103/39 12/04/16 08:45 67 94/38 12/04/16 08:30 70 106/39 12/04/16 08:15 65 92/33 12/04/16 08:10 66 97/31 12/04/16 08:00 Room Air 12/04/16 08:00 Room Air BiPAP 12/04/16 08:00 37.2 68 16 111/41 100 Room Air 12/04/16 08:00 38.5 67 90/30 12/04/16 07:34 68 18 100 Room Air 12/04/16 06:00 38.5 77 105/27 100 Room Air 12/04/16 04:00 38.6 107/66 Room Air 12/04/16 04:00 100 Room Air 12/04/16 02:00 72 92/35 100 Room Air 12/04/16 00:00 36.9 67 130/57 100 BiPAP 40 12/04/16 00:00 100 BiPAP 40 12/03/16 22:23 59 100 40 12/03/16 22:00 59 17 116/57 100 BiPAP 40 12/03/16 20:26 65 18 100 Room Air 12/03/16 20:00 100 Room Air 12/03/16 20:00 36.8 65 18 110/40 100 Room Air 12/03/16 20:00 108/50 12/03/16 17:59 62 20 96/37 100 Room Air 12/03/16 17:00 63 20 107/43 100 12/03/16 16:01 63 118/34 100 12/03/16 15:58 37.0 63 18 122/51 100 Room Air 12/03/16 15:50 100 Room Air 12/03/16 15:29 63 18 100 Room Air VSS. S1S2 RRR, lungs are clear, abdomen is benign. CCE. Laboratory Results: Last 24 Hours Test 12/03/16 16:00 12/03/16 20:00 12/04/16 01:53 12/04/16 02:22 Bedside Glucose 129 mg/dl 170 mg/dl 76 mg/dl 88 mg/dl Test 12/04/16 03:55 12/04/16 05:20 12/04/16 06:05 12/04/16 07:51 Bedside Glucose 102 mg/dl 88 mg/dl 77 mg/dl White Blood Count 16.90 K/uL Red Blood Count 2.78 M/uL Hemoglobin 8.9 g/dL Hematocrit 27.6 % Mean Corpuscular Volume 99.3 fL Mean Corpuscular Hemoglobin 32.0 pg Mean Corpuscular Hemoglobin Concent 32.2 g/dl Platelet Count 122 K/uL Mean Platelet Volume 11.0 fL Neutrophils (%) (Auto) 91.6 % Lymphocytes (%) (Auto) 3.0 % Monocytes (%) (Auto) 4.3 % Eosinophils (%) (Auto) 0.5 % Basophils (%) (Auto) 0.1 % Neutrophils # (Auto) 15.48 K/uL Lymphocytes # (Auto) 0.51 K/uL Monocytes # (Auto) 0.73 K/uL Eosinophils # (Auto) 0.08 K/uL Basophils # (Auto) 0.01 K/uL RDW Standard Deviation 62.7 fL RDW Coefficient of Variation 17.2 % Immature Granulocyte % (Auto) 0.5 % Immature Granulocyte # (Auto) 0.09 K/uL Nucleated RBC Absolute Count (auto) 0.05 K/uL Nucleated Red Blood Cells % 0.3 % Red Blood Cell Morphology Unremarkable Sodium Level 132 mmol/L Potassium Level 4.5 mmol/L Chloride Level 94 mmol/L Carbon Dioxide Level 25 mmol/L Anion Gap 13.0 mmol/L Blood Urea Nitrogen 54 mg/dl Creatinine 5.00 mg/dl Est Creatinine Clear Calc Drug Dose 13.2 ml/min Estimated GFR () 9.4 Estimated GFR (Non- 8.1 BUN/Creatinine Ratio 10.8 Random Glucose 78 mg/dl Calcium Level 8.5 mg/dl Magnesium Level 2.0 mg/dl Random Vancomycin Level 19.1 mcg/ml Test 12/04/16 11:00 Bedside Glucose 94 mg/dl
--- NOTE | 2016-12-04 15:31 | Pharmacy Progress Note ---
Pharmacy Antibiotic Prog Note Date of Service: Dec 04, 2016. Subjective: The patient is currently receiving Vancomycin, dosing per random levels The patient is currently on day # 4 of vanc IV therapy. Objective: Height (Feet): 5 Height (Inches): 7.00 Weight (Kilograms): 113.300 Levels: Item Value Date Time Random Vancomycin Level 19.1 mcg/ml 12/04/16 0520 Lab Results (24hrs): Laboratory Tests Test 12/04/16 05:20 BUN/Creatinine Ratio 10.8 Blood Urea Nitrogen 54 mg/dl Creatinine 5.00 mg/dl White Blood Count 16.90 K/uL Red Blood Count 2.78 M/uL Hemoglobin 8.9 g/dL Hematocrit 27.6 % Mean Corpuscular Volume 99.3 fL Mean Corpuscular Hemoglobin 32.0 pg Mean Corpuscular Hemoglobin Concent 32.2 g/dl Platelet Count 122 K/uL Mean Platelet Volume 11.0 fL Neutrophils (%) (Auto) 91.6 % Lymphocytes (%) (Auto) 3.0 % Monocytes (%) (Auto) 4.3 % Eosinophils (%) (Auto) 0.5 % Basophils (%) (Auto) 0.1 % Neutrophils # (Auto) 15.48 K/uL Lymphocytes # (Auto) 0.51 K/uL Monocytes # (Auto) 0.73 K/uL Eosinophils # (Auto) 0.08 K/uL Basophils # (Auto) 0.01 K/uL Micro Results: Item Value Date Time Blood Culture - Preliminary Resulted 12/01/16 0953 Blood NO GROWTH TO DATE. Blood Culture - Preliminary Resulted 12/01/16 0953 Blood NO GROWTH TO DATE. Urine Culture - Final Complete 12/01/16 0000 Urine,Catheterized Pseudomonas Aeruginosa MRSA DNA Surveillance Screen - Final Complete 12/01/16 0000 Nasal Specimen Positive for MRSA by DNA Probe RUN DATE: 12/03/16 [facility] PAGE 1 RUN TIME: 0945 Specimen Inquiry PATIENT: AMBER CORREA LOC: [facility] U # : [id number] AGE/SX: 71/F ROOM: E105 REG : 12/01/[address]: Melania Burleson MD : 1945 BED: 1 DIS : STATUS: ADM IN TLOC: SPEC #: [id number] MANNIE: 12/01/16-UNK STATUS: COMP REQ #: [id number] RECD: 12/01/[address]: Latrice Charles MD SOURCE: URINE CATH ENTR: 12/01/16-[address]: Sánchez Nguyen MD , PhD SPDESC: Milton Palumbo DO Shippert, Brian W. , Mundo Pires MD [facility] ORDERED: CULTURE UR CATH Procedure Result Verified Site URINE CULTURE Final 12/03/16-7574 Organism 1 PSEUDOMONAS AERUGINOSA COLONY COUNT >100,000 CFU/ml SENS SENSITIVITY TO FOLLOW 1. PSEUDOMONAS AERUGINOSA Target Route Dose RX AB Cost M.I.C. IQ ------ ----- ------ -- ------ -------- - ------ CEFTAZIDIME S 8 CEFEPIME S 8 IMIPENEM S <=1 AZTREONAM I 16 GENTAMICIN R >8 TOBRAMYCIN R >8 AMIKACIN S <=16 CIPROFLOXACIN R >2 LEVOFLOXACIN R >4 PIP/TAZO S 64 S = SENSITIVE I = INTERMEDIATE R = RESISTANT Recent Pertinent Medications: Antibiotic regimen adjusted today per infectious disease service: * D/C doxycycline * D/C ceftazidime * start imipenem * continue vancomycin Assessment & Plan: VANCOMYCIN * This drug level is: Therapeutic * Vancomycin 500mg IV x1 dose today after dialysis session * Goal trough level estimate: between 15 - 20 mcg/mL. * Random level has been ordered for: 12/06/16 with AM labs (prior to next dialysis session) IMIPENEM * Primaxin 500mg IV q12h Pharmacy will continue to follow and will adjust dose/frequency as necessary. Thank you
--- NOTE | 2016-12-04 16:02 | Nephrology Progress Note ---
Nephrology Progress Note Date of Service: Dec 04, 2016. Subjective 71 yo female with hypotension and volume overload and transient afib with hypothermia on admission requiring pressors, bipap and emergent dialysis. underwent dialysis on sunday and sunday and for dialysis today. this morning, pt lethargic and bp is low on bipap but responsive. no longer requiring pressors. Objective Date Time Temp Pulse Resp B/P Pulse Ox O2 Delivery O2 Flow Rate FiO2 12/04/16 15:05 65 18 100 Room Air 12/04/16 14:00 37.0 82 20 126/46 100 Room Air 12/04/16 12:00 Room Air 12/04/16 12:00 76 20 127/43 100 Room Air 12/04/16 11:22 68 18 100 Room Air 12/04/16 11:15 37.0 76 123/33 12/04/16 11:00 71 132/49 12/04/16 10:45 72 125/42 12/04/16 10:30 70 118/36 12/04/16 10:15 69 127/42 12/04/16 10:00 70 124/49 12/04/16 10:00 70 20 126/44 100 Room Air 12/04/16 09:45 69 126/44 12/04/16 09:30 69 109/42 12/04/16 09:15 69 111/41 12/04/16 09:00 66 103/39 12/04/16 08:45 67 94/38 12/04/16 08:30 70 106/39 12/04/16 08:15 65 92/33 12/04/16 08:10 66 97/31 12/04/16 08:00 Room Air 12/04/16 08:00 Room Air BiPAP 12/04/16 08:00 37.2 68 16 111/41 100 Room Air 12/04/16 08:00 38.5 67 90/30 12/04/16 07:34 68 18 100 Room Air 12/04/16 06:00 38.5 77 105/27 100 Room Air 12/04/16 04:00 38.6 107/66 Room Air 12/04/16 04:00 100 Room Air 12/04/16 02:00 72 92/35 100 Room Air 12/04/16 00:00 36.9 67 130/57 100 BiPAP 40 12/04/16 00:00 100 BiPAP 40 12/03/16 22:23 59 100 40 12/03/16 22:00 59 17 116/57 100 BiPAP 40 12/03/16 20:26 65 18 100 Room Air 12/03/16 20:00 100 Room Air 12/03/16 20:00 36.8 65 18 110/40 100 Room Air 12/03/16 20:00 108/50 12/03/16 17:59 62 20 96/37 100 Room Air 12/03/16 17:00 63 20 107/43 100 12/03/16 16:01 63 118/34 100 12/03/16 15:58 37.0 63 18 122/51 100 Room Air Physical Exam: General-aaox2, lethargic on bipap Eyes-no scleral icterus ENT-mmm Neck-supple Lungs-basilar rales Heart-rrr Abdomen-bs+ s/nt/nd Extremities-mild edema Neuro-lethargic Current Inpatient Medications Medications (Trade) Dose Ordered Sig/Gelacio Route Start Time Stop Time Status Last Admin Dose Admin Glucose (Glucose 40% Gel) 15-30 GRAMS 15 GRAMS... UD PRN PO 12/01/16 14:15 12/31/16 14:14 Glucose (Glucose Chew Tab) 4-8 Tablets 4 Tabl... UD PRN PO 12/01/16 14:15 12/31/16 14:14 Dextrose (Dextrose 50% 50ML Syringe) 25-50ML OF 50% DW IV FOR... UD PRN IV 12/01/16 14:15 12/31/16 14:14 12/04/16 08:16 50 ML Glucagon (Glucagon Inj) 1 mg UD PRN SQ 12/01/16 14:15 12/31/16 14:14 Miscellaneous Information (Consult Glycemic Management Pharmacy) 1 ea UD N/A 12/01/16 14:34 12/31/16 14:33 Acetaminophen (Tylenol Tab) 650 mg Q4H PRN PO 12/01/16 14:15 12/31/16 14:14 12/04/16 06:13 650 MG Nitroglycerin 0.4 mg 0.4 mg UD PRN SL 12/01/16 14:15 12/31/16 14:14 Pantoprazole Sodium/Syringe (Protonix Inj/ Syringe) 10 ml @ 5 mls/min DAILY IV 12/02/16 09:00 01/01/17 08:59 12/04/16 08:16 5 MLS/MIN Albuterol/ Ipratropium (Duoneb) 3 ml QIDR INH 12/01/16 16:00 12/31/16 15:59 12/04/16 15:05 3 ML Aspirin (Ecotrin Tab) 81 mg DAILY PO 12/02/16 09:00 01/01/17 08:59 12/03/16 07:27 81 MG Atorvastatin Calcium (Lipitor Tab) 40 mg HS PO 12/01/16 21:00 12/31/16 20:59 12/03/16 20:06 40 MG Clopidogrel Bisulfate (plAVix TAB) 75 mg DAILY PO 12/02/16 09:00 01/01/17 08:59 12/03/16 07:27 75 MG Escitalopram Oxalate (Lexapro Tab) 10 mg HS PO 12/01/16 21:00 12/31/16 20:59 12/03/16 20:06 10 MG Guaifenesin (Mucinex Contr Rel Tab) 600 mg Q12 PO 12/01/16 21:00 12/31/16 20:59 12/03/16 20:06 600 MG Insulin Glargine (Lantus Solostar Pen) 0 units if BSG less than 100... Q12 SC 12/01/16 21:00 12/31/16 20:59 12/03/16 20:15 8 UNIT Levothyroxine Sodium (Synthroid Tab) 75 mcg DAILYBB PO 12/02/16 06:00 01/01/17 05:59 12/04/16 06:13 75 MCG Albuterol/ Ipratropium (Duoneb) 3 ml Q2R PRN INH 12/01/16 14:45 12/31/16 14:44 Vancomycin HCl 1 ea 1 ea UD PRN N/A 12/01/16 15:15 12/31/16 15:14 Norepinephrine Bitartrate/ Dextrose (Levophed Inj/ D5W 500ml) 508 ml @ 0 mls/hr Q0M PRN IV 12/01/16 15:15 12/31/16 15:14 12/03/16 06:33 8 MLS/HR Acetaminophen (Ofirmev Iv) 1,000 mg Q8H PRN IV 12/02/16 16:30 01/01/17 16:29 12/02/16 16:35 1,000 MG Ioversol (Optiray 320) 125 ml UD PRN IV 12/03/16 11:15 12/07/16 11:14 Heparin Sodium (Porcine) (Heparin Sq 5000 Unit/0.5ml) 5,000 unit Q12 SQ 12/03/16 21:00 01/02/17 20:59 12/04/16 08:15 5,000 UNIT Metoprolol Tartrate (Lopressor Iv) 5 mg Q4 PRN IV 12/03/16 12:15 01/02/17 12:14 Amiodarone HCl (Cordarone Tab) 200 mg QID PO 12/03/16 13:00 01/02/17 12:59 12/04/16 11:57 200 MG Insulin Aspart (novoLOG ASPART) SLIDING SCALE If C... ACHS SC 12/03/16 16:00 01/02/17 15:59 12/03/16 20:15 3 UNITS Epoetin Sammy (Procrit Inj) 10,000 units TODAY@0745 IV. 12/04/16 07:45 12/04/16 18:00 12/04/16 10:00 10,000 UNITS Albumin Human 12.5 gm 12.5 gm TODAY@0745,0845 IV 12/04/16 07:45 12/04/16 18:00 12/04/16 08:21 12.5 GM Imipenem/ Cilastatin Sodium/ Dextrose (Primaxin Iv/D5 100ml) 110 ml @ 100 mls/hr Q12H IV 12/04/16 14:00 12/14/16 13:59 12/04/16 14:34 100 MLS/HR Imipenem/ Cilastatin Sodium (Consult) 1 ea UD PRN N/A 12/04/16 10:30 01/03/17 10:29 Modafinil (proVIGIL TAB) 100 mg QAM PO 12/05/16 09:00 01/04/17 08:59 Last 24 Hours Test 12/03/16 16:00 12/03/16 20:00 12/04/16 01:53 12/04/16 02:22 Bedside Glucose 129 mg/dl 170 mg/dl 76 mg/dl 88 mg/dl Test 12/04/16 03:55 12/04/16 05:20 12/04/16 06:05 12/04/16 07:51 Bedside Glucose 102 mg/dl 88 mg/dl 77 mg/dl White Blood Count 16.90 K/uL Red Blood Count 2.78 M/uL Hemoglobin 8.9 g/dL Hematocrit 27.6 % Mean Corpuscular Volume 99.3 fL Mean Corpuscular Hemoglobin 32.0 pg Mean Corpuscular Hemoglobin Concent 32.2 g/dl Platelet Count 122 K/uL Mean Platelet Volume 11.0 fL Neutrophils (%) (Auto) 91.6 % Lymphocytes (%) (Auto) 3.0 % Monocytes (%) (Auto) 4.3 % Eosinophils (%) (Auto) 0.5 % Basophils (%) (Auto) 0.1 % Neutrophils # (Auto) 15.48 K/uL Lymphocytes # (Auto) 0.51 K/uL Monocytes # (Auto) 0.73 K/uL Eosinophils # (Auto) 0.08 K/uL Basophils # (Auto) 0.01 K/uL RDW Standard Deviation 62.7 fL RDW Coefficient of Variation 17.2 % Immature Granulocyte % (Auto) 0.5 % Immature Granulocyte # (Auto) 0.09 K/uL Nucleated RBC Absolute Count (auto) 0.05 K/uL Nucleated Red Blood Cells % 0.3 % Red Blood Cell Morphology Unremarkable Sodium Level 132 mmol/L Potassium Level 4.5 mmol/L Chloride Level 94 mmol/L Carbon Dioxide Level 25 mmol/L Anion Gap 13.0 mmol/L Blood Urea Nitrogen 54 mg/dl Creatinine 5.00 mg/dl Est Creatinine Clear Calc Drug Dose 13.2 ml/min Estimated GFR () 9.4 Estimated GFR (Non- 8.1 BUN/Creatinine Ratio 10.8 Random Glucose 78 mg/dl Calcium Level 8.5 mg/dl Magnesium Level 2.0 mg/dl Random Vancomycin Level 19.1 mcg/ml Test 12/04/16 11:00 Bedside Glucose 94 mg/dl Assessment & Plan ESRD-for dialysis today with albumin. pts bp is stable with the albumin but unable to remove fluid successfully today. dialyzing for clearance today. will re-evaluate and attempt further dialysis with uf later in week when more stable. ID-pt with one of two positive blood cultures and +uti on appropriate antibiotics. Anemia of Renal Failure-hg 8.9 and will continue procrit to help keep hg between 10 to 11.
--- NOTE | 2016-12-04 18:47 | Hospitalist Progress Note ---
Hospitalist Progress Note Date of Service Dec 04, 2016. Subjective Pt evaluation today including: conversation w/ patient, physical exam, chart review, lab review, review of studies, review of inpatient medication list Patient says, "HI" that is all. Additional Comments: Deferred secondary to her not talking with me tonight. Objective Vital Signs Date Time Temp Pulse Resp B/P Pulse Ox O2 Delivery O2 Flow Rate FiO2 12/04/16 16:00 100 Room Air 12/04/16 16:00 91 16 112/47 100 Room Air 12/04/16 15:05 65 18 100 Room Air 12/04/16 14:00 37.0 82 20 126/46 100 Room Air 12/04/16 12:00 Room Air 12/04/16 12:00 76 20 127/43 100 Room Air 12/04/16 11:22 68 18 100 Room Air 12/04/16 11:15 37.0 76 123/33 12/04/16 11:00 71 132/49 12/04/16 10:45 72 125/42 12/04/16 10:30 70 118/36 12/04/16 10:15 69 127/42 12/04/16 10:00 70 124/49 12/04/16 10:00 70 20 126/44 100 Room Air 12/04/16 09:45 69 126/44 12/04/16 09:30 69 109/42 12/04/16 09:15 69 111/41 12/04/16 09:00 66 103/39 12/04/16 08:45 67 94/38 12/04/16 08:30 70 106/39 12/04/16 08:15 65 92/33 12/04/16 08:10 66 97/31 12/04/16 08:00 Room Air 12/04/16 08:00 Room Air BiPAP 12/04/16 08:00 37.2 68 16 111/41 100 Room Air 12/04/16 08:00 38.5 67 90/30 12/04/16 07:34 68 18 100 Room Air 12/04/16 06:00 38.5 77 105/27 100 Room Air 12/04/16 04:00 38.6 107/66 Room Air 12/04/16 04:00 100 Room Air 12/04/16 02:00 72 92/35 100 Room Air 12/04/16 00:00 36.9 67 130/57 100 BiPAP 40 12/04/16 00:00 100 BiPAP 40 12/03/16 22:23 59 100 40 12/03/16 22:00 59 17 116/57 100 BiPAP 40 12/03/16 20:26 65 18 100 Room Air 12/03/16 20:00 100 Room Air 12/03/16 20:00 36.8 65 18 110/40 100 Room Air 12/03/16 20:00 108/50 Physical Exam Notes: GEN: Awake, alert. Not in acute distress HEENT: Tm's intact, no inflammation, EOMI, PERRLA, MMM Neck: Soft, supple Lungs: Scattered rhonchi and rales at the bases. Heart: REG, nrl S1S2 without murmurs, rubs or gallops Abdomen: Soft, NT, ND, + BS EXT: No C/C + edema NEURO: CN's II-XII grossly intact, non-focal Skin: warm, dry, no rashes PSYCH: deferred. . Laboratory Results Last 24 Hours Test 12/03/16 20:00 12/04/16 01:53 12/04/16 02:22 12/04/16 03:55 Bedside Glucose 170 mg/dl 76 mg/dl 88 mg/dl 102 mg/dl Test 12/04/16 05:20 12/04/16 06:05 12/04/16 07:51 12/04/16 11:00 White Blood Count 16.90 K/uL Red Blood Count 2.78 M/uL Hemoglobin 8.9 g/dL Hematocrit 27.6 % Mean Corpuscular Volume 99.3 fL Mean Corpuscular Hemoglobin 32.0 pg Mean Corpuscular Hemoglobin Concent 32.2 g/dl Platelet Count 122 K/uL Mean Platelet Volume 11.0 fL Neutrophils (%) (Auto) 91.6 % Lymphocytes (%) (Auto) 3.0 % Monocytes (%) (Auto) 4.3 % Eosinophils (%) (Auto) 0.5 % Basophils (%) (Auto) 0.1 % Neutrophils # (Auto) 15.48 K/uL Lymphocytes # (Auto) 0.51 K/uL Monocytes # (Auto) 0.73 K/uL Eosinophils # (Auto) 0.08 K/uL Basophils # (Auto) 0.01 K/uL RDW Standard Deviation 62.7 fL RDW Coefficient of Variation 17.2 % Immature Granulocyte % (Auto) 0.5 % Immature Granulocyte # (Auto) 0.09 K/uL Nucleated RBC Absolute Count (auto) 0.05 K/uL Nucleated Red Blood Cells % 0.3 % Red Blood Cell Morphology Unremarkable Sodium Level 132 mmol/L Potassium Level 4.5 mmol/L Chloride Level 94 mmol/L Carbon Dioxide Level 25 mmol/L Anion Gap 13.0 mmol/L Blood Urea Nitrogen 54 mg/dl Creatinine 5.00 mg/dl Est Creatinine Clear Calc Drug Dose 13.2 ml/min Estimated GFR () 9.4 Estimated GFR (Non- 8.1 BUN/Creatinine Ratio 10.8 Random Glucose 78 mg/dl Calcium Level 8.5 mg/dl Magnesium Level 2.0 mg/dl Random Vancomycin Level 19.1 mcg/ml Bedside Glucose 88 mg/dl 77 mg/dl 94 mg/dl Test 12/04/16 16:17 Bedside Glucose 127 mg/dl Assessment and Plan patient is a 71 yo old M with ESRD, COPD, HTN who is presenting to ER from [facility] after being found unresponsive 1 sepsis secondary to UTI or pneumonia: improving 2 COPD exacerbation - duonebs. 3. New onset A fib: On oral amiodarone. 4. ESRD on HD: stable, f/u renal consult 5. Encephalopathy: improving, felt was due to hypercapnia. 6 Hypothyroid: cont synthroid. 7 Anemia: continue to monitor. DVT prophylaxis: heparin
[2016-12-04] MEDS: ATORVASTATIN 20 MG TAB PO SCH (20:59)
[2016-12-04] MEDS: ESCITALOPRAM OXALATE 10 MG TAB PO SCH (20:59)
[2016-12-05] VITALS (16 sets, daily range): BP systolic 111–137; BP diastolic 38–84; PULSE 72–83; TEMP 36.4–37.6; O2SAT 91–100
[2016-12-05] MEDS: IMIPENEM/CILASTATIN IV 500 MG in DEXTROSE 5% 100ML 100 ML IV SCH ×2 (02:14→14:32)
[2016-12-05 05:40] LABS: BASO % 0.2 %; BASO ABS # 0.02 K/uL (0-0.2); EOS % 0.8 %; HEMATOCRIT 26.6 % (37-47); IG% 0.2 %; LYMPH % 8.1 %; MEAN CELL VOLUME 102.3 fL (80-100); MEAN CORPUSCULAR HEMOGLOBIN 31.9 pg (25-34); MEAN CORPUSCULAR HGB CONC 31.2 g/dl (32-36); MEAN PLATELET VOLUME 10.9 fL (7.4-10.4); MONO % 7.1 %; NEUT % 83.6 %; PLATELET COUNT 101 K/uL (130-400); WHITE BLOOD COUNT 8.68 K/uL (4.8-10.8)
[2016-12-05 06:05] LABS: ANISOCYTOSIS PRESENT; COMPLETE YES; DOHLE BODIES 1+
[2016-12-05 06:12] LABS: BUN/CREATININE RATIO 9.2 (10-20); CALCIUM 8.4 mg/dl (8.5-10.1); CREATININE 3.9 mg/dl (0.60-1.20); MAGNESIUM 2.1 mg/dl (1.8-2.4); POTASSIUM 3.9 mmol/L (3.5-5.1)
[2016-12-05] MEDS: LEVOTHYROXINE 75 MCG TAB PO SCH (06:21)
[2016-12-05] MEDS: INSULIN ASPART 100 UNITS/ML 3 ML PEN SC SCH ×4 (06:45→20:29)
[2016-12-05] MEDS: ALBUT/IPRATROP 3MG/0.5MG NEB 3 ML VIAL INH SCH ×4 (07:30→19:09)
--- NOTE | 2016-12-05 07:34 | Nephrology Progress Note ---
Nephrology Progress Note Date of Service: Dec 05, 2016. Subjective 71 yo female with sepsis with one of two positive blood cultures and required pressors, bipap, warming blanket initially. pt is much better now. more alert. has resting tremor of head and arms. has underlying dementia at baseline. pt comfortable. was unable to remove fluid on dialysis yesterday secondary to low bp despite use of albumin. Objective Date Time Temp Pulse Resp B/P Pulse Ox O2 Delivery O2 Flow Rate FiO2 12/05/16 06:00 73 16 131/47 100 BiPAP 21 12/05/16 04:00 36.9 78 16 111/38 97 BiPAP 21 12/05/16 04:00 100 BiPAP 12/05/16 01:58 77 18 123/51 100 12/05/16 00:00 100 BiPAP 12/04/16 23:59 37.0 87 101/33 100 Room Air 12/04/16 22:52 88 100 21 12/04/16 22:00 89 20 91/35 100 Room Air 12/04/16 20:30 92 18 100 Room Air 12/04/16 20:00 100 Room Air 12/04/16 20:00 37.2 92 20 113/43 100 Room Air 12/04/16 18:00 92 20 94/60 100 Room Air 12/04/16 16:00 100 Room Air 12/04/16 16:00 91 16 112/47 100 Room Air 12/04/16 15:05 65 18 100 Room Air 12/04/16 14:00 37.0 82 20 126/46 100 Room Air 12/04/16 12:00 Room Air 12/04/16 12:00 76 20 127/43 100 Room Air 12/04/16 11:22 68 18 100 Room Air 12/04/16 11:15 37.0 76 123/33 12/04/16 11:00 71 132/49 12/04/16 10:45 72 125/42 12/04/16 10:30 70 118/36 12/04/16 10:15 69 127/42 12/04/16 10:00 70 124/49 12/04/16 10:00 70 20 126/44 100 Room Air 12/04/16 09:45 69 126/44 12/04/16 09:30 69 109/42 12/04/16 09:15 69 111/41 12/04/16 09:00 66 103/39 12/04/16 08:45 67 94/38 12/04/16 08:30 70 106/39 12/04/16 08:15 65 92/33 12/04/16 08:10 66 97/31 12/04/16 08:00 Room Air 12/04/16 08:00 Room Air BiPAP 12/04/16 08:00 37.2 68 16 111/41 100 Room Air 12/04/16 08:00 38.5 67 90/30 12/04/16 07:34 68 18 100 Room Air Physical Exam: General-aaox3 Eyes-no scleral icterus ENT-mmm Neck-supple Lungs-decreased at bases Heart-regular Abdomen-bs+ s/nt/nd Extremities-no edema Neuro-tremors Current Inpatient Medications Medications (Trade) Dose Ordered Sig/Gelacio Route Start Time Stop Time Status Last Admin Dose Admin Glucose (Glucose 40% Gel) 15-30 GRAMS 15 GRAMS... UD PRN PO 12/01/16 14:15 12/31/16 14:14 Glucose (Glucose Chew Tab) 4-8 Tablets 4 Tabl... UD PRN PO 12/01/16 14:15 12/31/16 14:14 Dextrose (Dextrose 50% 50ML Syringe) 25-50ML OF 50% DW IV FOR... UD PRN IV 12/01/16 14:15 12/31/16 14:14 12/04/16 08:16 50 ML Glucagon (Glucagon Inj) 1 mg UD PRN SQ 12/01/16 14:15 12/31/16 14:14 Miscellaneous Information (Consult Glycemic Management Pharmacy) 1 ea UD N/A 12/01/16 14:34 12/31/16 14:33 Acetaminophen (Tylenol Tab) 650 mg Q4H PRN PO 12/01/16 14:15 12/31/16 14:14 12/04/16 06:13 650 MG Nitroglycerin 0.4 mg 0.4 mg UD PRN SL 12/01/16 14:15 12/31/16 14:14 Pantoprazole Sodium/Syringe (Protonix Inj/ Syringe) 10 ml @ 5 mls/min DAILY IV 12/02/16 09:00 01/01/17 08:59 12/04/16 08:16 5 MLS/MIN Albuterol/ Ipratropium (Duoneb) 3 ml QIDR INH 12/01/16 16:00 12/31/16 15:59 12/04/16 20:00 3 ML Aspirin (Ecotrin Tab) 81 mg DAILY PO 12/02/16 09:00 01/01/17 08:59 12/03/16 07:27 81 MG Atorvastatin Calcium (Lipitor Tab) 40 mg HS PO 12/01/16 21:00 12/31/16 20:59 12/04/16 20:59 40 MG Clopidogrel Bisulfate (plAVix TAB) 75 mg DAILY PO 12/02/16 09:00 01/01/17 08:59 12/03/16 07:27 75 MG Escitalopram Oxalate (Lexapro Tab) 10 mg HS PO 12/01/16 21:00 12/31/16 20:59 12/04/16 20:59 10 MG Guaifenesin (Mucinex Contr Rel Tab) 600 mg Q12 PO 12/01/16 21:00 12/31/16 20:59 12/04/16 20:59 600 MG Insulin Glargine (Lantus Solostar Pen) 0 units if BSG less than 100... Q12 SC 12/01/16 21:00 12/31/16 20:59 12/04/16 21:01 6 UNIT Levothyroxine Sodium (Synthroid Tab) 75 mcg DAILYBB PO 12/02/16 06:00 01/01/17 05:59 12/05/16 06:21 75 MCG Albuterol/ Ipratropium (Duoneb) 3 ml Q2R PRN INH 12/01/16 14:45 12/31/16 14:44 Vancomycin HCl 1 ea 1 ea UD PRN N/A 12/01/16 15:15 12/31/16 15:14 Norepinephrine Bitartrate/ Dextrose (Levophed Inj/ D5W 500ml) 508 ml @ 0 mls/hr Q0M PRN IV 12/01/16 15:15 12/31/16 15:14 12/03/16 06:33 8 MLS/HR Acetaminophen (Ofirmev Iv) 1,000 mg Q8H PRN IV 12/02/16 16:30 01/01/17 16:29 12/02/16 16:35 1,000 MG Ioversol (Optiray 320) 125 ml UD PRN IV 12/03/16 11:15 12/07/16 11:14 Heparin Sodium (Porcine) (Heparin Sq 5000 Unit/0.5ml) 5,000 unit Q12 SQ 12/03/16 21:00 01/02/17 20:59 12/04/16 21:00 5,000 UNIT Metoprolol Tartrate (Lopressor Iv) 5 mg Q4 PRN IV 12/03/16 12:15 01/02/17 12:14 Amiodarone HCl (Cordarone Tab) 200 mg QID PO 12/03/16 13:00 01/02/17 12:59 12/04/16 20:59 200 MG Insulin Aspart SLIDING SCALE If C... ACHS SC 12/03/16 16:00 01/02/17 15:59 12/03/16 20:15 3 UNITS Imipenem/ Cilastatin Sodium/ Dextrose (Primaxin Iv/D5 100ml) 110 ml @ 100 mls/hr Q12H IV 12/04/16 14:00 12/14/16 13:59 12/05/16 02:14 100 MLS/HR Imipenem/ Cilastatin Sodium (Consult) 1 ea UD PRN N/A 12/04/16 10:30 01/03/17 10:29 Modafinil (proVIGIL TAB) 100 mg QAM PO 12/05/16 09:00 01/04/17 08:59 Epoetin Sammy (Procrit Inj) 10,000 units TODAY@0800 IV. 12/06/16 08:00 12/06/16 18:00 Albumin Human (Albumin 25%) 12.5 gm TODAY@0800,0900 IV 12/06/16 08:00 12/06/16 18:00 Last 24 Hours Test 12/04/16 07:51 12/04/16 11:00 12/04/16 16:17 12/04/16 20:56 Bedside Glucose 77 mg/dl 94 mg/dl 127 mg/dl 132 mg/dl Test 12/05/16 05:18 12/05/16 06:29 White Blood Count 8.68 K/uL Red Blood Count 2.60 M/uL Hemoglobin 8.3 g/dL Hematocrit 26.6 % Mean Corpuscular Volume 102.3 fL Mean Corpuscular Hemoglobin 31.9 pg Mean Corpuscular Hemoglobin Concent 31.2 g/dl Platelet Count 101 K/uL Mean Platelet Volume 10.9 fL Neutrophils (%) (Auto) 83.6 % Lymphocytes (%) (Auto) 8.1 % Monocytes (%) (Auto) 7.1 % Eosinophils (%) (Auto) 0.8 % Basophils (%) (Auto) 0.2 % Neutrophils # (Auto) 7.25 K/uL Lymphocytes # (Auto) 0.70 K/uL Monocytes # (Auto) 0.62 K/uL Eosinophils # (Auto) 0.07 K/uL Basophils # (Auto) 0.02 K/uL RDW Standard Deviation 65.0 fL RDW Coefficient of Variation 17.5 % Immature Granulocyte % (Auto) 0.2 % Immature Granulocyte # (Auto) 0.02 K/uL Nucleated RBC Absolute Count (auto) 0.03 K/uL Nucleated Red Blood Cells % 0.3 % Dohle Bodies 1+ Basophilic Stippling 1+ Anisocytosis PRESENT Sodium Level 138 mmol/L Potassium Level 3.9 mmol/L Chloride Level 97 mmol/L Carbon Dioxide Level 31 mmol/L Anion Gap 10.0 mmol/L Blood Urea Nitrogen 36 mg/dl Creatinine 3.90 mg/dl Est Creatinine Clear Calc Drug Dose 17.1 ml/min Estimated GFR () 12.7 Estimated GFR (Non- 10.9 BUN/Creatinine Ratio 9.2 Random Glucose 118 mg/dl Calcium Level 8.4 mg/dl Magnesium Level 2.1 mg/dl Bedside Glucose 105 mg/dl Assessment & Plan ESRD-for dialysis tomorrow with albumin and will try to remove 2 liters as bp tolerates. if bp does not tolerate, will hold off on fluid removal and continue m-w- dialysis schedule and remove fluid once medically stable. everyday pt continues to look better. Anemia of Renal Failure-hg 8.3 and will continue procrit on dialysis to help keep hg between 10 to 11. ok from renal perspective to move to tele
[2016-12-05] MEDS: PANTOprazole INJ 40 MG in SYRINGE 0 ML IV SCH (08:54)
[2016-12-05] MEDS: AMIODARONE 200 MG TAB PO SCH ×4 (08:55→20:29)
[2016-12-05] MEDS: ASPIRIN 81 MG ECTAB PO SCH (08:55)
[2016-12-05] MEDS: CLOPIDOGREL BISULFATE 75 MG TAB PO SCH (08:55)
[2016-12-05] MEDS: GUAIFENESIN 600 MG TABCR PO SCH ×2 (08:55→20:28)
[2016-12-05] MEDS: MODAFINIL 100 MG TAB PO SCH (08:57)
[2016-12-05] MEDS: INSULIN GLARGINE SOLOSTAR 100 UNITS/ML 3 ML PEN SC SCH ×2 (08:57→20:31)
[2016-12-05] MEDS: HEPARIN SOD 5000 UNIT/0.5 ML CARP SQ SCH ×2 (08:58→20:30)
--- NOTE | 2016-12-05 09:32 | Infectious Disease Progress Nt ---
Progress Note Date of Service Dec 05, 2016. Subjective Pt evaluation today including: conversation w/ patient, physical exam, chart review, lab review, review of studies, review of inpatient medication list WBC count this morning down to 8.68. Hgb was 8.3. Blood cultures growing GPC in 1/2 bottles pending identification and sensitivities. She is currently on IV Vancomycin and Imipenem. She states that she is feeling poorly this morning. Conversation is still short due to patient lethargy. She states that she does not have pain, and her breathing continues to be poor. No new imaging studies. She has been afebrile over night. All Other Systems: Reviewed and Negative Medications Current Inpatient Medications Medications (Trade) Dose Ordered Sig/Gelacio Route Start Time Stop Time Status Last Admin Dose Admin Glucose (Glucose 40% Gel) 15-30 GRAMS 15 GRAMS... UD PRN PO 12/01/16 14:15 12/31/16 14:14 Glucose (Glucose Chew Tab) 4-8 Tablets 4 Tabl... UD PRN PO 12/01/16 14:15 12/31/16 14:14 Dextrose (Dextrose 50% 50ML Syringe) 25-50ML OF 50% DW IV FOR... UD PRN IV 12/01/16 14:15 12/31/16 14:14 12/04/16 08:16 50 ML Glucagon (Glucagon Inj) 1 mg UD PRN SQ 12/01/16 14:15 12/31/16 14:14 Miscellaneous Information (Consult Glycemic Management Pharmacy) 1 ea UD N/A 12/01/16 14:34 12/31/16 14:33 Acetaminophen (Tylenol Tab) 650 mg Q4H PRN PO 12/01/16 14:15 12/31/16 14:14 12/04/16 06:13 650 MG Nitroglycerin 0.4 mg 0.4 mg UD PRN SL 12/01/16 14:15 12/31/16 14:14 Pantoprazole Sodium/Syringe (Protonix Inj/ Syringe) 10 ml @ 5 mls/min DAILY IV 12/02/16 09:00 01/01/17 08:59 12/05/16 08:54 5 MLS/MIN Albuterol/ Ipratropium (Duoneb) 3 ml QIDR INH 12/01/16 16:00 12/31/16 15:59 12/04/16 20:00 3 ML Aspirin (Ecotrin Tab) 81 mg DAILY PO 12/02/16 09:00 01/01/17 08:59 12/05/16 08:55 81 MG Atorvastatin Calcium (Lipitor Tab) 40 mg HS PO 12/01/16 21:00 12/31/16 20:59 12/04/16 20:59 40 MG Clopidogrel Bisulfate (plAVix TAB) 75 mg DAILY PO 12/02/16 09:00 01/01/17 08:59 12/05/16 08:55 75 MG Escitalopram Oxalate (Lexapro Tab) 10 mg HS PO 12/01/16 21:00 12/31/16 20:59 12/04/16 20:59 10 MG Guaifenesin (Mucinex Contr Rel Tab) 600 mg Q12 PO 12/01/16 21:00 12/31/16 20:59 12/05/16 08:55 600 MG Insulin Glargine (Lantus Solostar Pen) 0 units if BSG less than 100... Q12 SC 12/01/16 21:00 12/31/16 20:59 12/04/16 21:01 6 UNIT Levothyroxine Sodium (Synthroid Tab) 75 mcg DAILYBB PO 12/02/16 06:00 01/01/17 05:59 12/05/16 06:21 75 MCG Albuterol/ Ipratropium (Duoneb) 3 ml Q2R PRN INH 12/01/16 14:45 12/31/16 14:44 Vancomycin HCl 1 ea 1 ea UD PRN N/A 12/01/16 15:15 12/31/16 15:14 Norepinephrine Bitartrate/ Dextrose (Levophed Inj/ D5W 500ml) 508 ml @ 0 mls/hr Q0M PRN IV 12/01/16 15:15 12/31/16 15:14 12/03/16 06:33 8 MLS/HR Acetaminophen (Ofirmev Iv) 1,000 mg Q8H PRN IV 12/02/16 16:30 01/01/17 16:29 12/02/16 16:35 1,000 MG Ioversol (Optiray 320) 125 ml UD PRN IV 12/03/16 11:15 12/07/16 11:14 Heparin Sodium (Porcine) (Heparin Sq 5000 Unit/0.5ml) 5,000 unit Q12 SQ 12/03/16 21:00 01/02/17 20:59 12/05/16 08:58 5,000 UNIT Metoprolol Tartrate (Lopressor Iv) 5 mg Q4 PRN IV 12/03/16 12:15 01/02/17 12:14 Amiodarone HCl (Cordarone Tab) 200 mg QID PO 12/03/16 13:00 01/02/17 12:59 12/05/16 08:55 200 MG Insulin Aspart SLIDING SCALE If C... ACHS SC 12/03/16 16:00 01/02/17 15:59 12/03/16 20:15 3 UNITS Imipenem/ Cilastatin Sodium/ Dextrose (Primaxin Iv/D5 100ml) 110 ml @ 100 mls/hr Q12H IV 12/04/16 14:00 12/14/16 13:59 12/05/16 02:14 100 MLS/HR Imipenem/ Cilastatin Sodium (Consult) 1 ea UD PRN N/A 12/04/16 10:30 01/03/17 10:29 Modafinil (proVIGIL TAB) 100 mg QAM PO 12/05/16 09:00 01/04/17 08:59 12/05/16 08:57 100 MG Epoetin Sammy (Procrit Inj) 10,000 units TODAY@0800 IV. 12/06/16 08:00 12/06/16 18:00 Albumin Human (Albumin 25%) 12.5 gm TODAY@0800,0900 IV 12/06/16 08:00 12/06/16 18:00 Objective Vital Signs Date Time Temp Pulse Resp B/P Pulse Ox O2 Delivery O2 Flow Rate FiO2 12/05/16 06:00 73 16 131/47 100 BiPAP 21 12/05/16 04:00 36.9 78 16 111/38 97 BiPAP 21 12/05/16 04:00 100 BiPAP 21 12/05/16 01:58 77 18 123/51 100 12/05/16 00:00 100 BiPAP 21 12/04/16 23:59 37.0 87 101/33 100 Room Air 12/04/16 22:52 88 100 21 12/04/16 22:00 89 20 91/35 100 Room Air 12/04/16 20:30 92 18 100 Room Air 12/04/16 20:00 100 Room Air 12/04/16 20:00 37.2 92 20 113/43 100 Room Air 12/04/16 18:00 92 20 94/60 100 Room Air 12/04/16 16:00 100 Room Air 12/04/16 16:00 91 16 112/47 100 Room Air 12/04/16 15:05 65 18 100 Room Air 12/04/16 14:00 37.0 82 20 126/46 100 Room Air 12/04/16 12:00 Room Air 12/04/16 12:00 76 20 127/43 100 Room Air 12/04/16 11:22 68 18 100 Room Air 12/04/16 11:15 37.0 76 123/33 12/04/16 11:00 71 132/49 12/04/16 10:45 72 125/42 12/04/16 10:30 70 118/36 12/04/16 10:15 69 127/42 12/04/16 10:00 70 124/49 12/04/16 10:00 70 20 126/44 100 Room Air 12/04/16 09:45 69 126/44 12/04/16 09:30 69 109/42 Physical Exam General Appearance: + obese, + pertinent finding (lethargic, limited conversation) Eyes: normal inspection, sclerae normal ENT: hearing grossly normal Neck: supple, trachea midline Respiratory/Chest: chest non-tender, no respiratory distress, no accessory muscle use, + decreased breath sounds Cardiovascular: regular rate, rhythm, + systolic murmur Abdomen: normal bowel sounds, non tender, soft, + pertinent finding (ventral hernia) Extremities: + pertinent finding (trace bilatearl lower extremity swelling. Mild tenderness to palpation of anterior tibial surfaces) 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: alert, + disoriented (lethargic) Skin: normal color, warm/dry, no rash Laboratory Results RUN DATE: 12/05/16 [facility] PAGE 1 RUN TIME: 821 Specimen Inquiry PATIENT: AMBER CORREA LOC: MAXIMILIAN U # : [id number] AGE/SX: 71/F ROOM: E105 REG : 12/01/[address]: Rashard Still, : 1945 BED: 1 DIS : STATUS: ADM IN TLOC: SPEC #: [id number] MANNIE: 12/01/16 STATUS: RES REQ #: [id number] RECD: 12/01/16-[address]: Rosy Lopez D.O. SOURCE: BLOOD ENTR: 12/01/[address]: [facility]: ORDERED: BLOOD CULTURE Procedure Result Verified Site BLD CULT Preliminary 12/05/16-0822 Organism 1 GRAM POSITIVE COCCI SENS SENSITIVITIES DEPENDENT ON FURTHER IDENTIFICATION Phoned Positive Blood Culture Gram Stain Report to BOB GALLOWAY on 12/04/16 At 1522 By ANALILIA. Results were verbalized back to ANALILIA. Item Value Date Time Blood Culture - Preliminary Resulted 12/01/16 0953 Blood Gram Positive Cocci Blood Culture - Preliminary Resulted 12/01/16 0953 Blood NO GROWTH TO DATE. Urine Culture - Final Complete 12/01/16 0000 Urine,Catheterized Pseudomonas Aeruginosa MRSA DNA Surveillance Screen - Final Complete 12/01/16 0000 Nasal Specimen Positive for MRSA by DNA Probe Last 24 Hours Test 12/04/16 11:00 12/04/16 16:17 12/04/16 20:56 12/05/16 05:18 Bedside Glucose 94 mg/dl 127 mg/dl 132 mg/dl White Blood Count 8.68 K/uL Red Blood Count 2.60 M/uL Hemoglobin 8.3 g/dL Hematocrit 26.6 % Mean Corpuscular Volume 102.3 fL Mean Corpuscular Hemoglobin 31.9 pg Mean Corpuscular Hemoglobin Concent 31.2 g/dl Platelet Count 101 K/uL Mean Platelet Volume 10.9 fL Neutrophils (%) (Auto) 83.6 % Lymphocytes (%) (Auto) 8.1 % Monocytes (%) (Auto) 7.1 % Eosinophils (%) (Auto) 0.8 % Basophils (%) (Auto) 0.2 % Neutrophils # (Auto) 7.25 K/uL Lymphocytes # (Auto) 0.70 K/uL Monocytes # (Auto) 0.62 K/uL Eosinophils # (Auto) 0.07 K/uL Basophils # (Auto) 0.02 K/uL RDW Standard Deviation 65.0 fL RDW Coefficient of Variation 17.5 % Immature Granulocyte % (Auto) 0.2 % Immature Granulocyte # (Auto) 0.02 K/uL Nucleated RBC Absolute Count (auto) 0.03 K/uL Nucleated Red Blood Cells % 0.3 % Dohle Bodies 1+ Basophilic Stippling 1+ Anisocytosis PRESENT Sodium Level 138 mmol/L Potassium Level 3.9 mmol/L Chloride Level 97 mmol/L Carbon Dioxide Level 31 mmol/L Anion Gap 10.0 mmol/L Blood Urea Nitrogen 36 mg/dl Creatinine 3.90 mg/dl Est Creatinine Clear Calc Drug Dose 17.1 ml/min Estimated GFR () 12.7 Estimated GFR (Non- 10.9 BUN/Creatinine Ratio 9.2 Random Glucose 118 mg/dl Calcium Level 8.4 mg/dl Magnesium Level 2.1 mg/dl Test 12/05/16 06:29 Bedside Glucose 105 mg/dl Assessment and Plan (1) Septic shock Status: Acute (2) End-stage renal disease on hemodialysis Status: Chronic (3) Diabetes mellitus type 2 in obese Status: Chronic Patient with probable bibasilar pneumonia, possibly aspiration pna with encephalopathy, sepsis, and Pseudomonas UTI. She is currently on IV Vancomycin and Imipenem. Due to GPC in blood culture that is pending, recommend continuing current therapy with Vancomycin and Imipenem until further culture results are available. We will continue to follow and adjust abx as able. Plan: 1. Continue Vancomycin and Imipenem PROVIDER ADDENDUM: Patient reviewed with Ms. Blackwell. Agree with above assessment. He
--- NOTE | 2016-12-05 10:25 | Critical Care Progress Note ---
Critical Care Progress Note Date of Service Dec 05, 2016. Attending Dr. Love Subjective no events overnight, she did not want to use the bipap nocturnally. oral intake is poor. Objective Gen. alert: Pleasant HEENT normocephalic atraumatic Cardiovascular S1-S2 Pulmonary scattered Rales bilaterally Abdomen: Soft nondistended nontender Genitourinary: Normal external genitalia Skin: Pale, warm dry intact denies pain and no sob, no cough, s1s2 RRR, lungs are clear, abdomen is benign. no edema. neuro the pt with EDS and could not stay awake to complete her conversation. no change in her exam today, except she is more awake and following commands appropriately. Assessment & Plan #1 CKD on HD. #2 resolved metabolic acidosis. #3 CARMEN, possible parasomnia. Plan: #1 agree with current treatment. #2 continue provigil. #3 use bipap every night 10p to 7 a as tolerated. #4 transfer to regular floor. #5 appreciate Palliative care and renal consults. discussed with the staff on rounds. time spent with this pt was 35 minutes including coordination of care and transfer. Data Medications: Current Inpatient Medications Medications (Trade) Dose Ordered Sig/Gelacio Route Start Time Stop Time Status Last Admin Dose Admin Glucose (Glucose 40% Gel) 15-30 GRAMS 15 GRAMS... UD PRN PO 12/01/16 14:15 12/31/16 14:14 Glucose (Glucose Chew Tab) 4-8 Tablets 4 Tabl... UD PRN PO 12/01/16 14:15 12/31/16 14:14 Dextrose (Dextrose 50% 50ML Syringe) 25-50ML OF 50% DW IV FOR... UD PRN IV 12/01/16 14:15 12/31/16 14:14 12/04/16 08:16 50 ML Glucagon (Glucagon Inj) 1 mg UD PRN SQ 12/01/16 14:15 12/31/16 14:14 Miscellaneous Information (Consult Glycemic Management Pharmacy) 1 ea UD N/A 12/01/16 14:34 12/31/16 14:33 Acetaminophen (Tylenol Tab) 650 mg Q4H PRN PO 12/01/16 14:15 12/31/16 14:14 12/04/16 06:13 650 MG Nitroglycerin 0.4 mg 0.4 mg UD PRN SL 12/01/16 14:15 12/31/16 14:14 Pantoprazole Sodium/Syringe (Protonix Inj/ Syringe) 10 ml @ 5 mls/min DAILY IV 12/02/16 09:00 01/01/17 08:59 12/05/16 08:54 5 MLS/MIN Albuterol/ Ipratropium (Duoneb) 3 ml QIDR INH 12/01/16 16:00 12/31/16 15:59 12/05/16 07:30 3 ML Aspirin (Ecotrin Tab) 81 mg DAILY PO 12/02/16 09:00 01/01/17 08:59 12/05/16 08:55 81 MG Atorvastatin Calcium (Lipitor Tab) 40 mg HS PO 12/01/16 21:00 12/31/16 20:59 12/04/16 20:59 40 MG Clopidogrel Bisulfate (plAVix TAB) 75 mg DAILY PO 12/02/16 09:00 01/01/17 08:59 12/05/16 08:55 75 MG Escitalopram Oxalate (Lexapro Tab) 10 mg HS PO 12/01/16 21:00 12/31/16 20:59 12/04/16 20:59 10 MG Guaifenesin (Mucinex Contr Rel Tab) 600 mg Q12 PO 12/01/16 21:00 12/31/16 20:59 12/05/16 08:55 600 MG Insulin Glargine (Lantus Solostar Pen) 0 units if BSG less than 100... Q12 SC 12/01/16 21:00 12/31/16 20:59 12/04/16 21:01 6 UNIT Levothyroxine Sodium (Synthroid Tab) 75 mcg DAILYBB PO 12/02/16 06:00 01/01/17 05:59 12/05/16 06:21 75 MCG Albuterol/ Ipratropium (Duoneb) 3 ml Q2R PRN INH 12/01/16 14:45 12/31/16 14:44 Vancomycin HCl 1 ea 1 ea UD PRN N/A 12/01/16 15:15 12/31/16 15:14 Norepinephrine Bitartrate/ Dextrose (Levophed Inj/ D5W 500ml) 508 ml @ 0 mls/hr Q0M PRN IV 12/01/16 15:15 12/31/16 15:14 12/03/16 06:33 8 MLS/HR Acetaminophen (Ofirmev Iv) 1,000 mg Q8H PRN IV 12/02/16 16:30 01/01/17 16:29 12/02/16 16:35 1,000 MG Ioversol (Optiray 320) 125 ml UD PRN IV 12/03/16 11:15 12/07/16 11:14 Heparin Sodium (Porcine) (Heparin Sq 5000 Unit/0.5ml) 5,000 unit Q12 SQ 12/03/16 21:00 01/02/17 20:59 12/05/16 08:58 5,000 UNIT Metoprolol Tartrate (Lopressor Iv) 5 mg Q4 PRN IV 12/03/16 12:15 01/02/17 12:14 Amiodarone HCl (Cordarone Tab) 200 mg QID PO 12/03/16 13:00 01/02/17 12:59 12/05/16 08:55 200 MG Insulin Aspart SLIDING SCALE If C... ACHS SC 12/03/16 16:00 01/02/17 15:59 12/03/16 20:15 3 UNITS Imipenem/ Cilastatin Sodium/ Dextrose (Primaxin Iv/D5 100ml) 110 ml @ 100 mls/hr Q12H IV 12/04/16 14:00 12/14/16 13:59 12/05/16 02:14 100 MLS/HR Imipenem/ Cilastatin Sodium (Consult) 1 ea UD PRN N/A 12/04/16 10:30 01/03/17 10:29 Modafinil (proVIGIL TAB) 100 mg QAM PO 12/05/16 09:00 01/04/17 08:59 12/05/16 08:57 100 MG Epoetin Sammy (Procrit Inj) 10,000 units TODAY@0800 IV. 12/06/16 08:00 12/06/16 18:00 Albumin Human (Albumin 25%) 12.5 gm TODAY@0800,0900 IV 12/06/16 08:00 12/06/16 18:00 I & O: 24-Hour Column 12/05/16 08:00 Intake Total 970 ml Output Total 0 ml Balance 970 ml Vital Signs: Date Time Temp Pulse Resp B/P Pulse Ox O2 Delivery O2 Flow Rate FiO2 12/05/16 08:00 Room Air 12/05/16 08:00 37.1 83 20 137/48 100 Room Air 12/05/16 07:30 83 18 98 Room Air 12/05/16 06:00 73 16 131/47 100 BiPAP 21 12/05/16 04:00 36.9 78 16 111/38 97 BiPAP 21 12/05/16 04:00 100 BiPAP 21 12/05/16 01:58 77 18 123/51 100 12/05/16 00:00 100 BiPAP 21 12/04/16 23:59 37.0 87 101/33 100 Room Air 12/04/16 22:52 88 100 21 12/04/16 22:00 89 20 91/35 100 Room Air 12/04/16 20:30 92 18 100 Room Air 12/04/16 20:00 100 Room Air 12/04/16 20:00 37.2 92 20 113/43 100 Room Air 12/04/16 18:00 92 20 94/60 100 Room Air 12/04/16 16:00 100 Room Air 12/04/16 16:00 91 16 112/47 100 Room Air 12/04/16 15:05 65 18 100 Room Air 12/04/16 14:00 37.0 82 20 126/46 100 Room Air 12/04/16 12:00 Room Air 12/04/16 12:00 76 20 127/43 100 Room Air 12/04/16 11:22 68 18 100 Room Air 12/04/16 11:15 37.0 76 123/33 12/04/16 11:00 71 132/49 12/04/16 10:45 72 125/42 12/04/16 10:30 70 118/36 S1S2 RRR. lungs are clear, abdomen is obese and benign. no edema. non focal neuro exam. Laboratory Results: Last 24 Hours Test 12/04/16 11:00 12/04/16 16:17 12/04/16 20:56 12/05/16 05:18 Bedside Glucose 94 mg/dl 127 mg/dl 132 mg/dl White Blood Count 8.68 K/uL Red Blood Count 2.60 M/uL Hemoglobin 8.3 g/dL Hematocrit 26.6 % Mean Corpuscular Volume 102.3 fL Mean Corpuscular Hemoglobin 31.9 pg Mean Corpuscular Hemoglobin Concent 31.2 g/dl Platelet Count 101 K/uL Mean Platelet Volume 10.9 fL Neutrophils (%) (Auto) 83.6 % Lymphocytes (%) (Auto) 8.1 % Monocytes (%) (Auto) 7.1 % Eosinophils (%) (Auto) 0.8 % Basophils (%) (Auto) 0.2 % Neutrophils # (Auto) 7.25 K/uL Lymphocytes # (Auto) 0.70 K/uL Monocytes # (Auto) 0.62 K/uL Eosinophils # (Auto) 0.07 K/uL Basophils # (Auto) 0.02 K/uL RDW Standard Deviation 65.0 fL RDW Coefficient of Variation 17.5 % Immature Granulocyte % (Auto) 0.2 % Immature Granulocyte # (Auto) 0.02 K/uL Nucleated RBC Absolute Count (auto) 0.03 K/uL Nucleated Red Blood Cells % 0.3 % Dohle Bodies 1+ Basophilic Stippling 1+ Anisocytosis PRESENT Sodium Level 138 mmol/L Potassium Level 3.9 mmol/L Chloride Level 97 mmol/L Carbon Dioxide Level 31 mmol/L Anion Gap 10.0 mmol/L Blood Urea Nitrogen 36 mg/dl Creatinine 3.90 mg/dl Est Creatinine Clear Calc Drug Dose 17.1 ml/min Estimated GFR () 12.7 Estimated GFR (Non- 10.9 BUN/Creatinine Ratio 9.2 Random Glucose 118 mg/dl Calcium Level 8.4 mg/dl Magnesium Level 2.1 mg/dl Test 12/05/16 06:29 Bedside Glucose 105 mg/dl
--- NOTE | 2016-12-05 14:10 | Pharmacy Progress Note ---
Glycemic: Assessment & Plan Date of Service Dec 05, 2016. Assessment & Plan Outpatient Anti-diabetic Regimen: * Lantus 8 units SQ BID * Humalog per sliding scale * A1c = 6.7 % 09/19/16 -- interpret with caution due to ESRD ASSESSMENT: * Patient is a 71yo type 2 diabetic female admitted with unresponsiveness. * Patient is well-known to the pharmacy glycemic management service from past admissions. * During the past 24 hours, patient has received 6 total units of insulin, with BSGs ranging from 94 - 132 mg/dL. * Patient does not appear to be eating much of her ordered diet. * Due to the small amount of insulin that patient has been requiring, insulin has been dosed very cautiously. Will continue to utilize a "sliding scale" for Lantus dosing. PLAN FOR INPATIENT GLYCEMIC CONTROL: * Lantus SQ BID, per the following scale: * for BSG less than 100 mg/dL ---- give 0 units * for BSG 100 - 120 mg/dL -------- give 4 units * for BSG greater than 120 mg/dL -- give 6 units * Correctional Insulin with NOVOLOG per scale ACHS or Q6hrs while NPO * Correction factor 25 mg/dl/unit * Carb ratio 1 unit per 15 grams CHO consumed * Goal range of Low 140 mg/dL - High 180 mg/dL * Please note that the plan above was derived based on current level of insulin resistance and hospital stress. These recommendations are appropriate for inpatient admission only. Plan of care upon discharge will need to be reassessed to avoid potential outpatient hypo/hyperglycemia. Thank you.
--- NOTE | 2016-12-05 15:56 | Hospitalist Progress Note ---
Hospitalist Progress Note Date of Service Dec 05, 2016. Subjective Pt evaluation today including: conversation w/ patient, physical exam, chart review, lab review, review of studies, review of inpatient medication list The patient was stable to be moved from the ICU to the floor. Palliative care had received a do not intubate indication for the patient. Peyton is more lucid for me today. She tells me that she wants to get out of the hospital, although she did not know which one she was in, and that she wanted an ice cold drink. She declines having any pain. She has no new concerns today. Additional Comments: A 10 system review was performed and all were negative. Positives were placed in the subjective section. Objective Vital Signs Date Time Temp Pulse Resp B/P Pulse Ox O2 Delivery O2 Flow Rate FiO2 12/05/16 15:09 37.6 79 20 132/65 92 12/05/16 13:27 82 119/48 12/05/16 11:16 82 18 96 Room Air 12/05/16 11:00 Room Air 12/05/16 10:40 37.0 81 18 99 12/05/16 10:00 81 18 128/84 99 Room Air 12/05/16 08:00 Room Air BiPAP 12/05/16 08:00 Room Air 12/05/16 08:00 37.1 83 20 137/48 100 Room Air 12/05/16 07:30 83 18 98 Room Air 12/05/16 06:00 73 16 131/47 100 BiPAP 21 12/05/16 04:00 36.9 78 16 111/38 97 BiPAP 21 12/05/16 04:00 100 BiPAP 21 12/05/16 01:58 77 18 123/51 100 12/05/16 00:00 100 BiPAP 21 12/04/16 23:59 37.0 87 101/33 100 Room Air 12/04/16 22:52 88 100 21 12/04/16 22:00 89 20 91/35 100 Room Air 12/04/16 20:30 92 18 100 Room Air 12/04/16 20:00 100 Room Air 12/04/16 20:00 37.2 92 20 113/43 100 Room Air 12/04/16 18:00 92 20 94/60 100 Room Air 12/04/16 16:00 100 Room Air 12/04/16 16:00 91 16 112/47 100 Room Air Physical Exam Notes: GEN: Awake, alert. Not in acute distress HEENT: Tm's intact, no inflammation, EOMI, PERRLA, MMM Neck: Soft, supple Lungs: CTA b/l, no r/r/w Heart: REG, nrl S1S2, + SISSY, No rubs or gallops Abdomen: Soft, NT, ND, + BS EXT: No C/C + edema. NEURO: CN's II-XII grossly intact, non-focal Skin: warm, dry, no rashes PSYCH: pleasant, she is confused. Laboratory Results Last 24 Hours Test 12/04/16 16:17 12/04/16 20:56 12/05/16 05:18 12/05/16 06:29 Bedside Glucose 127 mg/dl 132 mg/dl 105 mg/dl White Blood Count 8.68 K/uL Red Blood Count 2.60 M/uL Hemoglobin 8.3 g/dL Hematocrit 26.6 % Mean Corpuscular Volume 102.3 fL Mean Corpuscular Hemoglobin 31.9 pg Mean Corpuscular Hemoglobin Concent 31.2 g/dl Platelet Count 101 K/uL Mean Platelet Volume 10.9 fL Neutrophils (%) (Auto) 83.6 % Lymphocytes (%) (Auto) 8.1 % Monocytes (%) (Auto) 7.1 % Eosinophils (%) (Auto) 0.8 % Basophils (%) (Auto) 0.2 % Neutrophils # (Auto) 7.25 K/uL Lymphocytes # (Auto) 0.70 K/uL Monocytes # (Auto) 0.62 K/uL Eosinophils # (Auto) 0.07 K/uL Basophils # (Auto) 0.02 K/uL RDW Standard Deviation 65.0 fL RDW Coefficient of Variation 17.5 % Immature Granulocyte % (Auto) 0.2 % Immature Granulocyte # (Auto) 0.02 K/uL Nucleated RBC Absolute Count (auto) 0.03 K/uL Nucleated Red Blood Cells % 0.3 % Dohle Bodies 1+ Basophilic Stippling 1+ Anisocytosis PRESENT Sodium Level 138 mmol/L Potassium Level 3.9 mmol/L Chloride Level 97 mmol/L Carbon Dioxide Level 31 mmol/L Anion Gap 10.0 mmol/L Blood Urea Nitrogen 36 mg/dl Creatinine 3.90 mg/dl Est Creatinine Clear Calc Drug Dose 17.1 ml/min Estimated GFR () 12.7 Estimated GFR (Non- 10.9 BUN/Creatinine Ratio 9.2 Random Glucose 118 mg/dl Calcium Level 8.4 mg/dl Magnesium Level 2.1 mg/dl Test 12/05/16 11:24 Bedside Glucose 120 mg/dl Assessment and Plan patient is a 71 yo old M with ESRD, COPD, HTN who is presenting to ER from [facility] after being found unresponsive 1 sepsis secondary to UTI or pneumonia: improving, On IV vanco and impenem. Awaiting final cultures for ID to give final recommendations. Once knowing this she likely can be transitioned back to skilled care. 2 COPD exacerbation - duonebs. 3. New onset A fib: On oral amiodarone. 4. ESRD on HD: stable. 5. Encephalopathy: improving, felt was due to hypercapnia. 6 Hypothyroid: cont synthroid. 7 Anemia: continue to monitor. DVT prophylaxis: heparin
[2016-12-05] MEDS: ATORVASTATIN 20 MG TAB PO SCH (20:28)
[2016-12-05] MEDS: ESCITALOPRAM OXALATE 10 MG TAB PO SCH (20:29)
[2016-12-06] VITALS (25 sets, daily range): BP systolic 96–182; BP diastolic 48–77; PULSE 65–81; TEMP 36.8–37.7; O2SAT 90–100
[2016-12-06] MEDS: IMIPENEM/CILASTATIN IV 500 MG in DEXTROSE 5% 100ML 100 ML IV SCH ×2 (01:16→15:43)
[2016-12-06] MEDS: LEVOTHYROXINE 75 MCG TAB PO SCH (05:41)
[2016-12-06] MEDS: ALBUT/IPRATROP 3MG/0.5MG NEB 3 ML VIAL INH SCH ×4 (07:33→19:33)
[2016-12-06] MEDS ORDERED: EPOETIN ALFA 10,000 UNITS/ML VIAL IV. SCH (08:00)
[2016-12-06 08:40] LABS: BUN/CREATININE RATIO 9.5 (10-20); CALCIUM 8.9 mg/dl (8.5-10.1); CREATININE 5.3 mg/dl (0.60-1.20); MAGNESIUM 2.2 mg/dl (1.8-2.4)
[2016-12-06 08:41] LABS: POTASSIUM 4.6 mmol/L (3.5-5.1)
[2016-12-06 08:44] LABS: BASO % 0.3 %; BASO ABS # 0.02 K/uL (0-0.2); EOS % 1.9 %; HEMATOCRIT 26.3 % (37-47); IG% 0.5 %; LYMPH % 9.2 %; LYMPH ABS # 0.68 K/uL (1.2-3.4); MEAN CELL VOLUME 98.5 fL (80-100); MEAN CORPUSCULAR HEMOGLOBIN 31.8 pg (25-34); MEAN PLATELET VOLUME 11.2 fL (7.4-10.4); MONO % 5.3 %; NEUT % 82.8 %; PLATELET COUNT 105 K/uL (130-400); RED BLOOD COUNT 2.67 M/uL (4.2-5.4); WHITE BLOOD COUNT 7.41 K/uL (4.8-10.8)
--- NOTE | 2016-12-06 08:47 | Nephrology Progress Note ---
Nephrology Progress Note Date of Service: Dec 06, 2016. Subjective no c/o musculoskeletal or chest pain or dyspnea. stable dry thick cough. ROS limited to a degree by pt MS >> she is mostly but not consistently alert/ interactive Objective Date Time Temp Pulse Resp B/P Pulse Ox O2 Delivery O2 Flow Rate FiO2 12/06/16 07:54 37.2 74 20 95 Room Air 12/06/16 07:35 72 16 90 Room Air 12/06/16 00:00 Room Air 12/05/16 23:16 36.4 72 20 115/50 100 BiPAP 12/05/16 21:39 74 93 30 12/05/16 20:00 Room Air 12/05/16 19:09 81 18 91 Room Air 12/05/16 17:33 76 118/61 12/05/16 16:00 Room Air 12/05/16 15:17 76 18 100 Room Air 12/05/16 15:09 37.6 79 20 132/65 92 12/05/16 13:27 82 119/48 12/05/16 11:16 82 18 96 Room Air 12/05/16 11:00 Room Air 12/05/16 10:40 37.0 81 18 99 12/05/16 10:00 81 18 128/84 99 Room Air Physical Exam: General-alert, interactive, appropriate mostly though does briefly dose in interview then awakens; on RA, thick dry cough in exam Eyes-no scleral icterus ENT-mmm Neck-supple Lungs-R exp wheezes, L crackles; no resp distress Heart-regular Abdomen-bs+ s/nt/nd Extremities-no edema, L AVF Neuro-axial tremors, waxing/waning MS as above Current Inpatient Medications Medications (Trade) Dose Ordered Sig/Gelacio Route Start Time Stop Time Status Last Admin Dose Admin Glucose (Glucose 40% Gel) 15-30 GRAMS 15 GRAMS... UD PRN PO 12/01/16 14:15 12/31/16 14:14 Glucose (Glucose Chew Tab) 4-8 Tablets 4 Tabl... UD PRN PO 12/01/16 14:15 12/31/16 14:14 Dextrose (Dextrose 50% 50ML Syringe) 25-50ML OF 50% DW IV FOR... UD PRN IV 12/01/16 14:15 12/31/16 14:14 12/04/16 08:16 50 ML Glucagon (Glucagon Inj) 1 mg UD PRN SQ 12/01/16 14:15 12/31/16 14:14 Miscellaneous Information (Consult Glycemic Management Pharmacy) 1 ea UD N/A 12/01/16 14:34 12/31/16 14:33 Acetaminophen (Tylenol Tab) 650 mg Q4H PRN PO 12/01/16 14:15 12/31/16 14:14 12/04/16 06:13 650 MG Nitroglycerin 0.4 mg 0.4 mg UD PRN SL 12/01/16 14:15 12/31/16 14:14 Pantoprazole Sodium/Syringe (Protonix Inj/ Syringe) 10 ml @ 5 mls/min DAILY IV 12/02/16 09:00 01/01/17 08:59 12/05/16 08:54 5 MLS/MIN Albuterol/ Ipratropium (Duoneb) 3 ml QIDR INH 12/01/16 16:00 12/31/16 15:59 12/06/16 07:33 3 ML Aspirin (Ecotrin Tab) 81 mg DAILY PO 12/02/16 09:00 01/01/17 08:59 12/05/16 08:55 81 MG Atorvastatin Calcium (Lipitor Tab) 40 mg HS PO 12/01/16 21:00 12/31/16 20:59 12/05/16 20:28 40 MG Clopidogrel Bisulfate (plAVix TAB) 75 mg DAILY PO 12/02/16 09:00 01/01/17 08:59 12/05/16 08:55 75 MG Escitalopram Oxalate (Lexapro Tab) 10 mg HS PO 12/01/16 21:00 12/31/16 20:59 12/05/16 20:29 10 MG Guaifenesin (Mucinex Contr Rel Tab) 600 mg Q12 PO 12/01/16 21:00 12/31/16 20:59 12/05/16 20:28 600 MG Insulin Glargine (Lantus Solostar Pen) 0 units if BSG less than 100... Q12 SC 12/01/16 21:00 12/31/16 20:59 12/05/16 20:31 4 UNIT Levothyroxine Sodium (Synthroid Tab) 75 mcg DAILYBB PO 12/02/16 06:00 01/01/17 05:59 12/06/16 05:41 75 MCG Albuterol/ Ipratropium (Duoneb) 3 ml Q2R PRN INH 12/01/16 14:45 12/31/16 14:44 Vancomycin HCl 1 ea 1 ea UD PRN N/A 12/01/16 15:15 12/31/16 15:14 Norepinephrine Bitartrate/ Dextrose (Levophed Inj/ D5W 500ml) 508 ml @ 0 mls/hr Q0M PRN IV 12/01/16 15:15 12/31/16 15:14 12/03/16 06:33 8 MLS/HR Acetaminophen (Ofirmev Iv) 1,000 mg Q8H PRN IV 12/02/16 16:30 01/01/17 16:29 12/02/16 16:35 1,000 MG Ioversol (Optiray 320) 125 ml UD PRN IV 12/03/16 11:15 12/07/16 11:14 Heparin Sodium (Porcine) (Heparin Sq 5000 Unit/0.5ml) 5,000 unit Q12 SQ 12/03/16 21:00 01/02/17 20:59 12/05/16 20:30 5,000 UNIT Metoprolol Tartrate (Lopressor Iv) 5 mg Q4 PRN IV 12/03/16 12:15 01/02/17 12:14 Amiodarone HCl (Cordarone Tab) 200 mg QID PO 12/03/16 13:00 01/02/17 12:59 12/05/16 20:29 200 MG Insulin Aspart SLIDING SCALE If C... ACHS SC 12/03/16 16:00 01/02/17 15:59 12/03/16 20:15 3 UNITS Imipenem/ Cilastatin Sodium/ Dextrose (Primaxin Iv/D5 100ml) 110 ml @ 100 mls/hr Q12H IV 12/04/16 14:00 12/14/16 13:59 12/06/16 01:16 100 MLS/HR Imipenem/ Cilastatin Sodium (Consult) 1 ea UD PRN N/A 12/04/16 10:30 01/03/17 10:29 Modafinil (proVIGIL TAB) 100 mg QAM PO 12/05/16 09:00 01/04/17 08:59 12/05/16 08:57 100 MG Epoetin Sammy (Procrit Inj) 10,000 units TODAY@0800 IV. 12/06/16 08:00 12/06/16 18:00 Albumin Human (Albumin 25%) 12.5 gm TODAY@0800,0900 IV 12/06/16 08:00 12/06/16 18:00 Last 24 Hours Test 12/05/16 11:24 12/05/16 16:23 12/05/16 20:08 12/06/16 07:34 Bedside Glucose 120 mg/dl 179 mg/dl 115 mg/dl 143 mg/dl Test 12/06/16 07:45 12/06/16 08:34 Sodium Level 132 mmol/L Potassium Level 4.6 mmol/L Chloride Level 95 mmol/L Carbon Dioxide Level 24 mmol/L Anion Gap 13.0 mmol/L Blood Urea Nitrogen 51 mg/dl Creatinine 5.30 mg/dl Est Creatinine Clear Calc Drug Dose 12.5 ml/min Estimated GFR () 8.7 Estimated GFR (Non- 7.5 BUN/Creatinine Ratio 9.5 Random Glucose 122 mg/dl Calcium Level 8.9 mg/dl Magnesium Level 2.2 mg/dl Random Vancomycin Level 18.6 mcg/ml White Blood Count 7.41 K/uL Red Blood Count 2.67 M/uL Hemoglobin 8.5 g/dL Hematocrit 26.3 % Mean Corpuscular Volume 98.5 fL Mean Corpuscular Hemoglobin 31.8 pg Platelet Count 105 K/uL Mean Platelet Volume 11.2 fL Neutrophils (%) (Auto) 82.8 % Lymphocytes (%) (Auto) 9.2 % Monocytes (%) (Auto) 5.3 % Eosinophils (%) (Auto) 1.9 % Basophils (%) (Auto) 0.3 % Neutrophils # (Auto) 6.14 K/uL Lymphocytes # (Auto) 0.68 K/uL Monocytes # (Auto) 0.39 K/uL Eosinophils # (Auto) 0.14 K/uL Basophils # (Auto) 0.02 K/uL RDW Standard Deviation 64.2 fL RDW Coefficient of Variation 17.9 % Immature Granulocyte % (Auto) 0.5 % Immature Granulocyte # (Auto) 0.04 K/uL Assessment & Plan 71 yo female with sepsis and encephalopathy with possibly from PNA who initially required pressors, bipap, warming blanket. pt is much better now and floor status. has underlying dementia at baseline. slow clinical improvement. ESRD- -unable to remove fluid at last tx despite albumin -for dialysis today with albumin and will try to remove 2 liters as bp tolerates. if bp does not tolerate, will hold off on fluid removal and continue -- dialysis schedule and remove fluid once medically stable. her lung exam today suggests she may tolerate some fluid removal Anemia of Renal Failure-hg 8.5 and will continue procrit on dialysis to help keep hg between 10 to 11. multifactorial sepsis > bibasilar pna, possible aspiration; also 1 blood cx w/ GPC; pseudomonas in urine of HD pt >> ID following/ managing abtx and follow up studies; no evidence these relate to dialysis
[2016-12-06 08:48] LABS: COMPLETE YES; MEAN CORPUSCULAR HGB CONC 32.3 g/dl (32-36)
[2016-12-06] MEDS: INSULIN ASPART 100 UNITS/ML 3 ML PEN SC SCH ×4 (08:54→19:30)
[2016-12-06] MEDS: AMIODARONE 200 MG TAB PO SCH (09:00)
[2016-12-06] MEDS: GUAIFENESIN 600 MG TABCR PO SCH ×2 (09:31→19:33)
[2016-12-06] MEDS: CLOPIDOGREL BISULFATE 75 MG TAB PO SCH (09:31)
[2016-12-06] MEDS: ASPIRIN 81 MG ECTAB PO SCH (09:32)
[2016-12-06] MEDS: MODAFINIL 100 MG TAB PO SCH (09:32)
[2016-12-06] MEDS: PANTOprazole INJ 40 MG in SYRINGE 0 ML IV SCH (09:32)
[2016-12-06] MEDS: INSULIN GLARGINE SOLOSTAR 100 UNITS/ML 3 ML PEN SC SCH ×2 (09:38→19:30)
[2016-12-06] MEDS: HEPARIN SOD 5000 UNIT/0.5 ML CARP SQ SCH ×2 (09:38→19:32)
--- NOTE | 2016-12-06 09:48 | CARDIOLOGY PROGRESS NOTE ---
DATE: 12/06/2016 DATE: 12/06/2016. The patient seen and examined. Chart, laboratory studies reviewed. SUBJECTIVE: The patient feels shaky this morning. Notes no other complaints. Notes no dizziness or lightheadedness. Notes no tachypalpitations. OBJECTIVE: VITAL SIGNS: Heart rate 74, blood pressure is 135/48. NECK: Thick. There is no distinct jugular venous distention. LUNGS: Revealed generally clear air capellan. CARDIOVASCULAR EXAMINATION: Regular. There is no S3 gallop. ABDOMEN: Soft. EXTREMITIES: Reveal trace edema. IMPRESSION: A 71-year-old female with complex history with recurrent sepsis, history of past paroxysmal atrial fibrillation and diastolic heart failure. The patient has been maintained in sinus rhythm with amiodarone in the past and has reloaded with medication this admission after lapse in therapy. PLAN: Will be to continue amiodarone at reduced dose at 200 mg per day, will reinstitute low dose beta marisa with carvedilol 3.125 mg twice per day. The patient has not been deemed a candidate for anticoagulation due to marked difficulties with bleeding, epistaxis and chronic anemia. Aspirin is continued at 81 mg per day and clopidogrel for prior history of neurologic issues. Medication adjustments have been made. Will sign off, call with any questions.
[2016-12-06] MEDS: ALBUMIN HUMAN 25% 12.5 GM/50 ML VIAL IV SCH ×2 (11:45→14:06)
[2016-12-06] MEDS ORDERED: NURSING VERBAL MED ORDER ONE (12:15)
[2016-12-06] MEDS ORDERED: MICONAZOLE NITRATE POWDER 43 GM EXT PRN (13:00)
--- NOTE | 2016-12-06 13:13 | Infectious Disease Progress Nt ---
Progress Note Date of Service Dec 06, 2016. Subjective Pt evaluation today including: conversation w/ patient, physical exam, chart review, lab review, review of studies, review of inpatient medication list White blood cell count this morning was 7.41. Her hemoglobin was 8.5. Her creatinine was 5.30. Her initial blood cultures are growing micrococcus in 1/2 cultures. She is currently on IV Primaxin and vancomycin. She states that she continues to feel poorly overall. She cannot localize any specific pain. She states she is not coughing, has no shortness of breath, and has no abdominal pain or diarrhea. All Other Systems: Reviewed and Negative Medications Current Inpatient Medications Medications (Trade) Dose Ordered Sig/Gelacio Route Start Time Stop Time Status Last Admin Dose Admin Glucose (Glucose 40% Gel) 15-30 GRAMS 15 GRAMS... UD PRN PO 12/01/16 14:15 12/31/16 14:14 Glucose (Glucose Chew Tab) 4-8 Tablets 4 Tabl... UD PRN PO 12/01/16 14:15 12/31/16 14:14 Dextrose (Dextrose 50% 50ML Syringe) 25-50ML OF 50% DW IV FOR... UD PRN IV 12/01/16 14:15 12/31/16 14:14 12/04/16 08:16 50 ML Glucagon (Glucagon Inj) 1 mg UD PRN SQ 12/01/16 14:15 12/31/16 14:14 Miscellaneous Information (Consult Glycemic Management Pharmacy) 1 ea UD N/A 12/01/16 14:34 12/31/16 14:33 Acetaminophen (Tylenol Tab) 650 mg Q4H PRN PO 12/01/16 14:15 12/31/16 14:14 12/04/16 06:13 650 MG Nitroglycerin 0.4 mg 0.4 mg UD PRN SL 12/01/16 14:15 12/31/16 14:14 Pantoprazole Sodium/Syringe (Protonix Inj/ Syringe) 10 ml @ 5 mls/min DAILY IV 12/02/16 09:00 01/01/17 08:59 12/06/16 09:32 5 MLS/MIN Albuterol/ Ipratropium (Duoneb) 3 ml QIDR INH 12/01/16 16:00 12/31/16 15:59 12/06/16 07:33 3 ML Aspirin (Ecotrin Tab) 81 mg DAILY PO 12/02/16 09:00 01/01/17 08:59 12/06/16 09:32 81 MG Atorvastatin Calcium (Lipitor Tab) 40 mg HS PO 12/01/16 21:00 12/31/16 20:59 12/05/16 20:28 40 MG Clopidogrel Bisulfate (plAVix TAB) 75 mg DAILY PO 12/02/16 09:00 01/01/17 08:59 12/06/16 09:31 75 MG Escitalopram Oxalate (Lexapro Tab) 10 mg HS PO 12/01/16 21:00 12/31/16 20:59 12/05/16 20:29 10 MG Guaifenesin (Mucinex Contr Rel Tab) 600 mg Q12 PO 12/01/16 21:00 12/31/16 20:59 12/06/16 09:31 600 MG Insulin Glargine (Lantus Solostar Pen) 0 units if BSG less than 100... Q12 SC 12/01/16 21:00 12/31/16 20:59 12/06/16 09:38 6 UNIT Levothyroxine Sodium (Synthroid Tab) 75 mcg DAILYBB PO 12/02/16 06:00 01/01/17 05:59 12/06/16 05:41 75 MCG Albuterol/ Ipratropium (Duoneb) 3 ml Q2R PRN INH 12/01/16 14:45 12/31/16 14:44 Vancomycin HCl 1 ea 1 ea UD PRN N/A 12/01/16 15:15 12/31/16 15:14 Norepinephrine Bitartrate/ Dextrose (Levophed Inj/ D5W 500ml) 508 ml @ 0 mls/hr Q0M PRN IV 12/01/16 15:15 12/31/16 15:14 12/03/16 06:33 8 MLS/HR Acetaminophen (Ofirmev Iv) 1,000 mg Q8H PRN IV 12/02/16 16:30 01/01/17 16:29 12/02/16 16:35 1,000 MG Ioversol (Optiray 320) 125 ml UD PRN IV 12/03/16 11:15 12/07/16 11:14 Heparin Sodium (Porcine) (Heparin Sq 5000 Unit/0.5ml) 5,000 unit Q12 SQ 12/03/16 21:00 01/02/17 20:59 12/06/16 09:38 5,000 UNIT Metoprolol Tartrate (Lopressor Iv) 5 mg Q4 PRN IV 12/03/16 12:15 01/02/17 12:14 Insulin Aspart SLIDING SCALE If C... ACHS SC 12/03/16 16:00 01/02/17 15:59 12/03/16 20:15 3 UNITS Imipenem/ Cilastatin Sodium/ Dextrose (Primaxin Iv/D5 100ml) 110 ml @ 100 mls/hr Q12H IV 12/04/16 14:00 12/14/16 13:59 12/06/16 01:16 100 MLS/HR Imipenem/ Cilastatin Sodium (Consult) 1 ea UD PRN N/A 12/04/16 10:30 01/03/17 10:29 Modafinil (proVIGIL TAB) 100 mg QAM PO 12/05/16 09:00 01/04/17 08:59 12/06/16 09:32 100 MG Epoetin Sammy (Procrit Inj) 10,000 units TODAY@0800 IV. 12/06/16 08:00 12/06/16 18:00 Albumin Human (Albumin 25%) 12.5 gm TODAY@0800,0900 IV 12/06/16 08:00 12/06/16 18:00 Amiodarone HCl (Cordarone Tab) 200 mg DAILY PO 12/07/16 09:00 01/06/17 08:59 Carvedilol (Coreg Tab) 3.125 mg BID PO 12/06/16 21:00 01/05/17 20:59 Miconazole Nitrate (Desenex Powder) 1 appln BID PRN EXT 12/06/16 13:00 01/05/17 12:59 Objective Vital Signs Date Time Temp Pulse Resp B/P Pulse Ox O2 Delivery O2 Flow Rate FiO2 12/06/16 12:45 70 173/77 12/06/16 12:30 69 178/61 12/06/16 12:15 70 160/61 12/06/16 12:00 70 158/66 12/06/16 11:45 72 132/65 12/06/16 11:30 37.2 72 135/67 12/06/16 08:53 135/48 12/06/16 08:22 Room Air 12/06/16 07:54 37.2 74 20 95 Room Air 12/06/16 07:35 72 16 90 Room Air 12/06/16 00:00 Room Air 12/05/16 23:16 36.4 72 20 115/50 100 BiPAP 12/05/16 21:39 74 93 30 12/05/16 20:00 Room Air 12/05/16 19:09 81 18 91 Room Air 12/05/16 17:33 76 118/61 12/05/16 16:00 Room Air 12/05/16 15:17 76 18 100 Room Air 12/05/16 15:09 37.6 79 20 132/65 92 12/05/16 13:27 82 119/48 Physical Exam General Appearance: no apparent distress, + obese Eyes: normal inspection, sclerae normal ENT: hearing grossly normal Neck: supple, trachea midline Respiratory/Chest: chest non-tender, no respiratory distress, no accessory muscle use, + wheezing (left lung throughout- mild) Cardiovascular: regular rate, rhythm, + systolic murmur Abdomen: normal bowel sounds, non tender, soft 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: + disoriented Skin: normal color, warm/dry, no rash Laboratory Results RUN DATE: 12/05/16 [facility] PAGE 1 RUN TIME: 3182 Specimen Inquiry PATIENT: AMBER CORREA LOC: NiraliMS2W U # : [id number] AGE/SX: 71/F ROOM: 62 REG : 12/01/[address]: Rashard Still, : 1945 BED: 2 DIS : STATUS: ADM IN TLOC: SPEC #: [id number] MANNIE: 12/01/16 STATUS: COMP REQ #: [id number] RECD: 12/01/16-[address]: Rosy Lopez D.O. SOURCE: BLOOD ENTR: 12/01/[address]: [facility]: ORDERED: BLOOD CULTURE Procedure Result Verified Site BLD CULT Final 12/05/16-1132 Organism 1 MICROCOCCUS SPECIES SENS NO SENSITIVITY TO FOLLOW Phoned Positive Blood Culture Gram Stain Report to BOB GALLOWAY on 12/04/16 At 1522 By ANALILIA. Results were verbalized back to ANALILIA. Item Value Date Time Blood Culture - Final Complete 12/01/16 0953 Blood Micrococcus Species Blood Culture - Preliminary Resulted 12/01/16 0953 Blood NO GROWTH TO DATE. Urine Culture - Final Complete 12/01/16 0000 Urine,Catheterized Pseudomonas Aeruginosa MRSA DNA Surveillance Screen - Final Complete 12/01/16 0000 Nasal Specimen Positive for MRSA by DNA Probe Last 24 Hours Test 12/05/16 16:23 12/05/16 20:08 12/06/16 07:34 12/06/16 07:45 Bedside Glucose 179 mg/dl 115 mg/dl 143 mg/dl Sodium Level 132 mmol/L Potassium Level 4.6 mmol/L Chloride Level 95 mmol/L Carbon Dioxide Level 24 mmol/L Anion Gap 13.0 mmol/L Blood Urea Nitrogen 51 mg/dl Creatinine 5.30 mg/dl Est Creatinine Clear Calc Drug Dose 12.5 ml/min Estimated GFR () 8.7 Estimated GFR (Non- 7.5 BUN/Creatinine Ratio 9.5 Random Glucose 122 mg/dl Calcium Level 8.9 mg/dl Magnesium Level 2.2 mg/dl Random Vancomycin Level 18.6 mcg/ml Test 12/06/16 08:34 12/06/16 11:45 White Blood Count 7.41 K/uL Red Blood Count 2.67 M/uL Hemoglobin 8.5 g/dL Hematocrit 26.3 % Mean Corpuscular Volume 98.5 fL Mean Corpuscular Hemoglobin 31.8 pg Mean Corpuscular Hemoglobin Concent 32.3 g/dl Platelet Count 105 K/uL Mean Platelet Volume 11.2 fL Neutrophils (%) (Auto) 82.8 % Lymphocytes (%) (Auto) 9.2 % Monocytes (%) (Auto) 5.3 % Eosinophils (%) (Auto) 1.9 % Basophils (%) (Auto) 0.3 % Neutrophils # (Auto) 6.14 K/uL Lymphocytes # (Auto) 0.68 K/uL Monocytes # (Auto) 0.39 K/uL Eosinophils # (Auto) 0.14 K/uL Basophils # (Auto) 0.02 K/uL RDW Standard Deviation 64.2 fL RDW Coefficient of Variation 17.9 % Immature Granulocyte % (Auto) 0.5 % Immature Granulocyte # (Auto) 0.04 K/uL Red Blood Cell Morphology Unremarkable Bedside Glucose 147 mg/dl Assessment and Plan (1) Septic shock Status: Acute (2) End-stage renal disease on hemodialysis Status: Chronic (3) Diabetes mellitus type 2 in obese Status: Chronic Patient with probable bibasilar pneumonia, possibly aspiration pna with encephalopathy, sepsis, and Pseudomonas UTI. She is currently on IV Vancomycin and Imipenem. Patient has micrococcus growing in 1/2 blood cultures. This is likely contaminant, but due to patient's current state, will repeat blood cultures today. Continue current therapy with Vancomycin and Imipenem until further culture results are available and patient improvement is seen. We will continue to follow and adjust abx as able. Plan: 1. Continue Vancomycin and Imipenem 2. Repeat blood cultures PROVIDER ADDENDUM: Patient reviewed with Ms. Blackwell. Agree with above assessment.
--- NOTE | 2016-12-06 13:50 | Pharmacy Progress Note ---
Pharmacy Antibiotic Prog Note Date of Service: Dec 06, 2016. Subjective: The patient is currently receiving vancomycin IV with dialysis. The patient is currently on day # 6 of IV therapy. Objective: Height (Feet): 5 Height (Inches): 7.00 Weight (Kilograms): 112.200 Levels: Item Value Date Time Random Vancomycin Level 19.7 mcg/ml 12/02/16 0530 Random Vancomycin Level 19.1 mcg/ml 12/04/16 0520 Random Vancomycin Level 18.6 mcg/ml 12/06/16 0745 Lab Results (24hrs): Laboratory Tests Test 12/06/16 07:45 12/06/16 08:34 BUN/Creatinine Ratio 9.5 Blood Urea Nitrogen 51 mg/dl Creatinine 5.30 mg/dl White Blood Count 7.41 K/uL Red Blood Count 2.67 M/uL Hemoglobin 8.5 g/dL Hematocrit 26.3 % Mean Corpuscular Volume 98.5 fL Mean Corpuscular Hemoglobin 31.8 pg Mean Corpuscular Hemoglobin Concent 32.3 g/dl Platelet Count 105 K/uL Mean Platelet Volume 11.2 fL Neutrophils (%) (Auto) 82.8 % Lymphocytes (%) (Auto) 9.2 % Monocytes (%) (Auto) 5.3 % Eosinophils (%) (Auto) 1.9 % Basophils (%) (Auto) 0.3 % Neutrophils # (Auto) 6.14 K/uL Lymphocytes # (Auto) 0.68 K/uL Monocytes # (Auto) 0.39 K/uL Eosinophils # (Auto) 0.14 K/uL Basophils # (Auto) 0.02 K/uL Micro Results: RUN DATE: 12/05/16 [facility] LAB PAGE 1 RUN TIME: 1132 Specimen Inquiry PATIENT: AMBER CORREA LOC: NiraliMS2W U # : [id number] AGE/SX: 71/F ROOM: [facility] REG : 12/01/[address]: Rashard Still, : 1945 BED: 2 DIS : STATUS: ADM IN TLOC: SPEC #: [id number] MANNIE: 12/01/16 STATUS: COMP REQ #: [id number] RECD: 12/01/[address]: Rosy Lopez D.O. SOURCE: BLOOD ENTR: 12/01/[address] ORDERED: BLOOD CULTURE Procedure Result Verified Site BLD CULT Final 12/05/16-1132 Organism 1 MICROCOCCUS SPECIES SENS NO SENSITIVITY TO FOLLOW Phoned Positive Blood Culture Gram Stain Report to BOB GALLOWAY on 12/04/16 At 1522 By ANALILIA. Results were verbalized back to ANALILIA. Assessment & Plan: Ms Correa still feels poorly. Her blood culture (1 or 2) produced Micrococcus. However, since the patient has not responded well, blood cultures have been re- drawn and antibiotics will be continued. VANCOMYCIN: vancomycin 500 mg IV x 1 after dialysis with a recheck of a random level prior to dialysis on Sunday (12/08/16) PRIMAXIN: continue current dose of 500 mg IV q12 hours Pharmacy will continue to follow and will adjust dose/frequency as necessary. Thank you
--- NOTE | 2016-12-06 15:09 | Hospitalist Progress Note ---
Hospitalist Progress Note Date of Service Dec 06, 2016. Subjective Pt evaluation today including: conversation w/ patient, physical exam, chart review, lab review, review of studies, review of inpatient medication list Patient did appear more alert today. She spoke in sentences as opposed to yes and no as the previous 2 days. She is undergoing dialysis shortly. Repeat blood cultures were ordered and drawn today as infectious disease is assisting on antibiotic choice from this point and to what length of time. Additional Comments: A 10 system review was performed and all were negative. Positives were placed in the subjective section. Objective Vital Signs Date Time Temp Pulse Resp B/P Pulse Ox O2 Delivery O2 Flow Rate FiO2 12/06/16 14:30 76 152/63 12/06/16 14:15 70 161/60 12/06/16 14:00 73 175/61 12/06/16 13:45 77 176/68 12/06/16 13:30 74 182/65 12/06/16 13:15 68 173/69 12/06/16 13:00 72 169/71 12/06/16 12:45 70 173/77 12/06/16 12:30 69 178/61 12/06/16 12:15 70 160/61 12/06/16 12:00 70 158/66 12/06/16 11:45 72 132/65 12/06/16 11:30 37.2 72 135/67 12/06/16 08:53 135/48 12/06/16 08:22 Room Air 12/06/16 07:54 37.2 74 20 95 Room Air 12/06/16 07:35 72 16 90 Room Air 12/06/16 00:00 Room Air 12/05/16 23:16 36.4 72 20 115/50 100 BiPAP 12/05/16 21:39 74 93 30 12/05/16 20:00 Room Air 12/05/16 19:09 81 18 91 Room Air 12/05/16 17:33 76 118/61 12/05/16 16:00 Room Air 12/05/16 15:17 76 18 100 Room Air 12/05/16 15:09 37.6 79 20 132/65 92 Physical Exam Notes: GEN: Awake, alert, oriented to person. Not in acute distress HEENT: Tm's intact, no inflammation, EOMI, PERRLA, MMM Neck: Soft, supple Lungs: CTA b/l, no r/r/w Heart: REG, nrl S1S2 without murmurs, rubs or gallops Abdomen: Soft, NT, ND, + BS EXT: No C/C + peripheral edema less in upper extremities today NEURO: CN's II-XII grossly intact, non-focal Skin: warm, dry, no rashes PSYCH: pleasant, no agitation. Laboratory Results Last 24 Hours Test 12/05/16 16:23 12/05/16 20:08 12/06/16 07:34 12/06/16 07:45 Bedside Glucose 179 mg/dl 115 mg/dl 143 mg/dl Sodium Level 132 mmol/L Potassium Level 4.6 mmol/L Chloride Level 95 mmol/L Carbon Dioxide Level 24 mmol/L Anion Gap 13.0 mmol/L Blood Urea Nitrogen 51 mg/dl Creatinine 5.30 mg/dl Est Creatinine Clear Calc Drug Dose 12.5 ml/min Estimated GFR () 8.7 Estimated GFR (Non- 7.5 BUN/Creatinine Ratio 9.5 Random Glucose 122 mg/dl Calcium Level 8.9 mg/dl Magnesium Level 2.2 mg/dl Random Vancomycin Level 18.6 mcg/ml Test 12/06/16 08:34 12/06/16 11:45 White Blood Count 7.41 K/uL Red Blood Count 2.67 M/uL Hemoglobin 8.5 g/dL Hematocrit 26.3 % Mean Corpuscular Volume 98.5 fL Mean Corpuscular Hemoglobin 31.8 pg Mean Corpuscular Hemoglobin Concent 32.3 g/dl Platelet Count 105 K/uL Mean Platelet Volume 11.2 fL Neutrophils (%) (Auto) 82.8 % Lymphocytes (%) (Auto) 9.2 % Monocytes (%) (Auto) 5.3 % Eosinophils (%) (Auto) 1.9 % Basophils (%) (Auto) 0.3 % Neutrophils # (Auto) 6.14 K/uL Lymphocytes # (Auto) 0.68 K/uL Monocytes # (Auto) 0.39 K/uL Eosinophils # (Auto) 0.14 K/uL Basophils # (Auto) 0.02 K/uL RDW Standard Deviation 64.2 fL RDW Coefficient of Variation 17.9 % Immature Granulocyte % (Auto) 0.5 % Immature Granulocyte # (Auto) 0.04 K/uL Red Blood Cell Morphology Unremarkable Bedside Glucose 147 mg/dl Assessment and Plan 1 sepsis secondary to UTI or pneumonia: improving, On IV vanco and impenem. Repeat blood cultures today with direction for antibiotic choice and length pending results. 2 COPD exacerbation - duonebs. 3. New onset A fib: On oral amiodarone. 4. ESRD on HD: stable.Having treatment today. 5. Encephalopathy: May have stabilized with the consideration that she may be now at what will be her new baseline. 6 Hypothyroid: cont synthroid. 7 Anemia: continue to monitor. DVT prophylaxis: heparin When medically stable and we have solid direction on antibiotics will transfer back to [facility].
[2016-12-06] MEDS ORDERED: VANCOMYCIN INJ 500 MG in SODIUM CHLORIDE 0.9% 250ML 250 ML IV SCH (16:00)
[2016-12-06] MEDS: CARVEDILOL 3.125 MG TAB PO SCH (19:29)
[2016-12-06] MEDS: ACETAMINOPHEN 325 MG TAB PO PRN (19:29)
[2016-12-06] MEDS: ATORVASTATIN 20 MG TAB PO SCH (19:32)
[2016-12-06] MEDS: ESCITALOPRAM OXALATE 10 MG TAB PO SCH (19:32)
[2016-12-06 22:17] LABS: LEGIONELLA PNEUMOPH IGM SERO 1 <1:16; LEGIONELLA PNEUMOPH TOT SERO 1 <1:16 titer (<1:16)
[2016-12-07] VITALS (9 sets, daily range): BP systolic 96–167; BP diastolic 57–76; PULSE 66–128; TEMP 36.8–37.3; O2SAT 88–100
[2016-12-07] MEDS: IMIPENEM/CILASTATIN IV 500 MG in DEXTROSE 5% 100ML 100 ML IV SCH ×2 (01:03→13:59)
[2016-12-07] MEDS: LEVOTHYROXINE 75 MCG TAB PO SCH (05:46)
[2016-12-07] MEDS: ALBUT/IPRATROP 3MG/0.5MG NEB 3 ML VIAL INH SCH ×4 (07:06→19:37)
[2016-12-07] MEDS: INSULIN ASPART 100 UNITS/ML 3 ML PEN SC SCH ×4 (07:59→20:27)
[2016-12-07] MEDS: INSULIN GLARGINE SOLOSTAR 100 UNITS/ML 3 ML PEN SC SCH ×2 (07:59→20:53)
[2016-12-07] MEDS: ASPIRIN 81 MG ECTAB PO SCH (08:24)
[2016-12-07] MEDS: PANTOprazole SOD 40 MG TAB PO SCH (08:24)
[2016-12-07] MEDS: MODAFINIL 100 MG TAB PO SCH (08:24)
[2016-12-07] MEDS: CLOPIDOGREL BISULFATE 75 MG TAB PO SCH (08:24)
[2016-12-07] MEDS: CARVEDILOL 3.125 MG TAB PO SCH (08:25)
[2016-12-07] MEDS: GUAIFENESIN 600 MG TABCR PO SCH ×2 (08:25→20:55)
[2016-12-07] MEDS: HEPARIN SOD 5000 UNIT/0.5 ML CARP SQ SCH ×2 (08:28→20:52)
[2016-12-07 08:35] LABS: BASO % 0.3 %; BASO ABS # 0.02 K/uL (0-0.2); COMPLETE YES; EOS % 2.5 %; HEMATOCRIT 28.9 % (37-47); IG% 0.3 %; LYMPH % 7.6 %; LYMPH ABS # 0.48 K/uL (1.2-3.4); MEAN CELL VOLUME 101.8 fL (80-100); MEAN CORPUSCULAR HEMOGLOBIN 31.7 pg (25-34); MEAN CORPUSCULAR HGB CONC 31.1 g/dl (32-36); MEAN PLATELET VOLUME 11.9 fL (7.4-10.4); MONO % 6.5 %; NEUT % 82.8 %; PLATELET COUNT 112 K/uL (130-400); RED BLOOD COUNT 2.84 M/uL (4.2-5.4)
[2016-12-07] MEDS ORDERED: AMIODARONE 200 MG TAB PO SCH (09:00)
[2016-12-07 09:04] LABS: BUN/CREATININE RATIO 7.3 (10-20); CALCIUM 9.1 mg/dl (8.5-10.1); CREATININE 4.3 mg/dl (0.60-1.20); POTASSIUM 4.3 mmol/L (3.5-5.1)
--- NOTE | 2016-12-07 09:50 | Infectious Disease Progress Nt ---
Progress Note Date of Service Dec 07, 2016. Subjective Pt evaluation today including: conversation w/ patient, physical exam, chart review, lab review, review of studies, review of inpatient medication list Repeat blood cultures are pending. WBC count today is 6.30. Hgb is 9.0. Creatinine this morning is 4.30. Mycoplasma IgG was 1.77. Legionella panel was negative. Patient is feeling slightly better this morning. She is "hot" this morning. She states that she has had some sweats but no chills or recorded fever. All Other Systems: Reviewed and Negative Medications Current Inpatient Medications Medications (Trade) Dose Ordered Sig/Gelacio Route Start Time Stop Time Status Last Admin Dose Admin Glucose (Glucose 40% Gel) 15-30 GRAMS 15 GRAMS... UD PRN PO 12/01/16 14:15 12/31/16 14:14 Glucose (Glucose Chew Tab) 4-8 Tablets 4 Tabl... UD PRN PO 12/01/16 14:15 12/31/16 14:14 Dextrose (Dextrose 50% 50ML Syringe) 25-50ML OF 50% DW IV FOR... UD PRN IV 12/01/16 14:15 12/31/16 14:14 12/04/16 08:16 50 ML Glucagon (Glucagon Inj) 1 mg UD PRN SQ 12/01/16 14:15 12/31/16 14:14 Miscellaneous Information (Consult Glycemic Management Pharmacy) 1 ea UD N/A 12/01/16 14:34 12/31/16 14:33 Acetaminophen (Tylenol Tab) 650 mg Q4H PRN PO 12/01/16 14:15 12/31/16 14:14 12/06/16 19:29 650 MG Nitroglycerin (Nitrostat Tab) 0.4 mg UD PRN SL 12/01/16 14:15 12/31/16 14:14 Albuterol/ Ipratropium (Duoneb) 3 ml QIDR INH 12/01/16 16:00 12/31/16 15:59 12/06/16 19:33 3 ML Aspirin (Ecotrin Tab) 81 mg DAILY PO 12/02/16 09:00 01/01/17 08:59 12/07/16 08:24 81 MG Atorvastatin Calcium (Lipitor Tab) 40 mg HS PO 12/01/16 21:00 12/31/16 20:59 12/06/16 19:32 40 MG Clopidogrel Bisulfate (plAVix TAB) 75 mg DAILY PO 12/02/16 09:00 01/01/17 08:59 12/07/16 08:24 75 MG Escitalopram Oxalate (Lexapro Tab) 10 mg HS PO 12/01/16 21:00 12/31/16 20:59 12/06/16 19:32 10 MG Guaifenesin (Mucinex Contr Rel Tab) 600 mg Q12 PO 12/01/16 21:00 12/31/16 20:59 12/07/16 08:25 600 MG Insulin Glargine (Lantus Solostar Pen) 0 units if BSG less than 110... Q12 SC 12/01/16 21:00 12/31/16 20:59 12/06/16 09:38 6 UNIT Levothyroxine Sodium (Synthroid Tab) 75 mcg DAILYBB PO 12/02/16 06:00 01/01/17 05:59 12/07/16 05:46 75 MCG Albuterol/ Ipratropium (Duoneb) 3 ml Q2R PRN INH 12/01/16 14:45 12/31/16 14:44 Vancomycin HCl (Consult) 1 ea UD PRN N/A 12/01/16 15:15 12/31/16 15:14 Acetaminophen (Ofirmev Iv) 1,000 mg Q8H PRN IV 12/02/16 16:30 01/01/17 16:29 12/02/16 16:35 1,000 MG Ioversol (Optiray 320) 125 ml UD PRN IV 12/03/16 11:15 12/07/16 11:14 Heparin Sodium (Porcine) (Heparin Sq 5000 Unit/0.5ml) 5,000 unit Q12 SQ 12/03/16 21:00 01/02/17 20:59 12/07/16 08:28 5,000 UNIT Metoprolol Tartrate (Lopressor Iv) 5 mg Q4 PRN IV 12/03/16 12:15 01/02/17 12:14 Insulin Aspart SLIDING SCALE If C... ACHS SC 12/03/16 16:00 01/02/17 15:59 12/03/16 20:15 3 UNITS Imipenem/ Cilastatin Sodium/ Dextrose (Primaxin Iv/D5 100ml) 110 ml @ 100 mls/hr Q12H IV 12/04/16 14:00 12/14/16 13:59 12/07/16 01:03 100 MLS/HR Imipenem/ Cilastatin Sodium (Consult) 1 ea UD PRN N/A 12/04/16 10:30 01/03/17 10:29 Modafinil (proVIGIL TAB) 100 mg QAM PO 12/05/16 09:00 01/04/17 08:59 12/07/16 08:24 100 MG Amiodarone HCl (Cordarone Tab) 200 mg DAILY PO 12/07/16 09:00 01/06/17 08:59 12/07/16 08:24 200 MG Carvedilol (Coreg Tab) 3.125 mg BID PO 12/06/16 21:00 01/05/17 20:59 12/07/16 08:25 3.125 MG Miconazole Nitrate (Desenex Powder) 1 appln BID PRN EXT 12/06/16 13:00 01/05/17 12:59 Pantoprazole Sodium (Protonix Tab) 40 mg DAILY PO 12/07/16 09:00 01/06/17 08:59 12/07/16 08:24 40 MG Objective Vital Signs Date Time Temp Pulse Resp B/P Pulse Ox O2 Delivery O2 Flow Rate FiO2 12/07/16 08:23 128 117/65 95 Nasal Cannula 2.0 12/07/16 07:41 Room Air 12/07/16 07:26 37.3 118 16 96/57 100 2.0 12/07/16 02:11 109 97 30 12/07/16 00:00 Room Air 12/06/16 23:25 36.8 65 20 111/63 100 BiPAP 12/06/16 22:20 81 97 30 12/06/16 20:00 Room Air 12/06/16 19:33 81 16 97 Room Air 12/06/16 19:27 37.7 79 18 96/48 100 Nasal Cannula 2.0 12/06/16 17:19 98 Nasal Cannula 2.0 12/06/16 16:07 Room Air 12/06/16 16:00 20 90 Room Air 12/06/16 15:02 36.9 74 152/61 12/06/16 14:45 73 149/61 12/06/16 14:30 76 152/63 12/06/16 14:15 70 161/60 12/06/16 14:00 73 175/61 12/06/16 13:45 77 176/68 12/06/16 13:30 74 182/65 12/06/16 13:15 68 173/69 12/06/16 13:00 72 169/71 12/06/16 12:45 70 173/77 12/06/16 12:30 69 178/61 12/06/16 12:15 70 160/61 12/06/16 12:00 70 158/66 12/06/16 11:45 72 132/65 12/06/16 11:30 37.2 72 135/67 Physical Exam General Appearance: no apparent distress, + obese Eyes: normal inspection, sclerae normal ENT: hearing grossly normal Neck: supple, trachea midline Respiratory/Chest: chest non-tender, lungs clear, normal breath sounds, no respiratory distress, no accessory muscle use Cardiovascular: regular rate, rhythm, + systolic murmur Abdomen: normal bowel sounds, non tender, soft 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: alert, normal mood/affect, oriented x 3 Skin: normal color, warm/dry, no rash Laboratory Results Last 24 Hours Test 12/06/16 11:45 12/06/16 16:54 12/06/16 19:19 12/07/16 07:44 Bedside Glucose 147 mg/dl 99 mg/dl 101 mg/dl 103 mg/dl Test 12/07/16 08:20 White Blood Count 6.30 K/uL Red Blood Count 2.84 M/uL Hemoglobin 9.0 g/dL Hematocrit 28.9 % Mean Corpuscular Volume 101.8 fL Mean Corpuscular Hemoglobin 31.7 pg Mean Corpuscular Hemoglobin Concent 31.1 g/dl Platelet Count 112 K/uL Mean Platelet Volume 11.9 fL Neutrophils (%) (Auto) 82.8 % Lymphocytes (%) (Auto) 7.6 % Monocytes (%) (Auto) 6.5 % Eosinophils (%) (Auto) 2.5 % Basophils (%) (Auto) 0.3 % Neutrophils # (Auto) 5.21 K/uL Lymphocytes # (Auto) 0.48 K/uL Monocytes # (Auto) 0.41 K/uL Eosinophils # (Auto) 0.16 K/uL Basophils # (Auto) 0.02 K/uL RDW Standard Deviation 66.3 fL RDW Coefficient of Variation 18.0 % Immature Granulocyte % (Auto) 0.3 % Immature Granulocyte # (Auto) 0.02 K/uL Sodium Level 140 mmol/L Potassium Level 4.3 mmol/L Chloride Level 99 mmol/L Carbon Dioxide Level 28 mmol/L Anion Gap 13.0 mmol/L Blood Urea Nitrogen 32 mg/dl Creatinine 4.30 mg/dl Est Creatinine Clear Calc Drug Dose 15.2 ml/min Estimated GFR () 11.3 Estimated GFR (Non- 9.7 BUN/Creatinine Ratio 7.3 Random Glucose 93 mg/dl Calcium Level 9.1 mg/dl Assessment and Plan (1) Septic shock Status: Acute (2) End-stage renal disease on hemodialysis Status: Chronic (3) Diabetes mellitus type 2 in obese Status: Chronic Patient with probable bibasilar pneumonia, possibly aspiration pna with encephalopathy, sepsis, and Pseudomonas UTI. She is currently on IV Vancomycin and Imipenem. Patient has micrococcus growing in 1/2 blood cultures. This is likely contaminant, but repeat blood cultures are pending. Continue current therapy with Vancomycin and Imipenem until further culture results are available and patient improvement is seen. Tomorrow will be day 7 of therapy, may consider transition to PO abx or even discontinuation if she continues to improve. Plan: 1. Continue Vancomycin and Imipenem PROVIDER ADDENDUM: PATIENT REVIEWED WITH MS. JHA. AGREE WITH ABOVE ASSESSMENT.
--- NOTE | 2016-12-07 11:35 | Pharmacy Progress Note ---
Glycemic: Assessment & Plan Date of Service Dec 07, 2016. Assessment & Plan Assessment * BSG's ranging 99-147 mg/dL over 24 hours. Lowest BSG of 99 mg/dL was drawn 2 hr post-HD yesterday. * Patient received Lantus 6 units yesterday AM and 4 units the previous PM. No Novolog administered x72 hours * Will decrease Lantus as BSG's are slightly low and patient has not received any Novolog. Ordered dose will provide a maximum of 50% of home dose of Lantus Plan * Basal insulin: Decrease Lantus 4 units every 12 hours - hold for BSG < 110 mg/dL * Correctional Insulin: Novolog Correction per scale ACHS Goal Range: Low 140 mg/dL - High 180 mg/dL Correction Factor: 25 mg/dL/unit * Prandial insulin: Per carb ratio of 1 unit per 15 grams CHO consumed Pharmacy will continue to monitor patient daily and write orders per [facility] inpatient glycemic control protocol. Thanks. * Please note that the plan above was derived based on current level of insulin resistance and hospital stress. These recommendations are appropriate for inpatient admission only. Plan of care upon discharge will need to be reassessed to avoid potential outpatient hypo/hyperglycemia.
--- NOTE | 2016-12-07 20:26 | Hospitalist Progress Note ---
Hospitalist Progress Note Date of Service Dec 07, 2016. Subjective Pt evaluation today including: conversation w/ patient, physical exam, chart review, lab review, review of studies, review of inpatient medication list The patient is more talkative today. She is actually looking quite good. She is scheduled for dialysis today. No chest pain, no SOB. Additional Comments: A 10 system review was performed and all were negative. Positives were placed in the subjective section. Objective Vital Signs Date Time Temp Pulse Resp B/P Pulse Ox O2 Delivery O2 Flow Rate FiO2 12/07/16 16:22 Room Air 12/07/16 14:54 37.0 69 20 132/76 98 Nasal Cannula 2.0 12/07/16 12:19 94 Nasal Cannula 2.0 12/07/16 12:18 72 18 167/74 88 Room Air 12/07/16 11:21 95 16 97 Room Air 12/07/16 08:23 128 117/65 95 Nasal Cannula 2.0 12/07/16 07:41 Room Air 12/07/16 07:26 37.3 118 16 96/57 100 2.0 12/07/16 02:11 109 97 30 12/07/16 00:00 Room Air 12/06/16 23:25 36.8 65 20 111/63 100 BiPAP 12/06/16 22:20 81 97 30 Physical Exam Notes: GEN: Awake, alert, oriented to person. Not in acute distress HEENT: Tm's intact, no inflammation, EOMI, PERRLA, MMM Neck: Soft, supple Lungs: CTA b/l, no r/r/w Heart: REG, nrl S1S2 without murmurs, rubs or gallops Abdomen: Soft, NT, ND, + BS EXT: No C/C + lower extremity edema. NEURO: CN's II-XII grossly intact, non-focal Skin: warm, dry, no rashes PSYCH: pleasant, no agitation. Laboratory Results Last 24 Hours Test 12/07/16 07:44 12/07/16 08:20 12/07/16 11:33 12/07/16 16:10 Bedside Glucose 103 mg/dl 139 mg/dl 107 mg/dl White Blood Count 6.30 K/uL Red Blood Count 2.84 M/uL Hemoglobin 9.0 g/dL Hematocrit 28.9 % Mean Corpuscular Volume 101.8 fL Mean Corpuscular Hemoglobin 31.7 pg Mean Corpuscular Hemoglobin Concent 31.1 g/dl Platelet Count 112 K/uL Mean Platelet Volume 11.9 fL Neutrophils (%) (Auto) 82.8 % Lymphocytes (%) (Auto) 7.6 % Monocytes (%) (Auto) 6.5 % Eosinophils (%) (Auto) 2.5 % Basophils (%) (Auto) 0.3 % Neutrophils # (Auto) 5.21 K/uL Lymphocytes # (Auto) 0.48 K/uL Monocytes # (Auto) 0.41 K/uL Eosinophils # (Auto) 0.16 K/uL Basophils # (Auto) 0.02 K/uL RDW Standard Deviation 66.3 fL RDW Coefficient of Variation 18.0 % Immature Granulocyte % (Auto) 0.3 % Immature Granulocyte # (Auto) 0.02 K/uL Sodium Level 140 mmol/L Potassium Level 4.3 mmol/L Chloride Level 99 mmol/L Carbon Dioxide Level 28 mmol/L Anion Gap 13.0 mmol/L Blood Urea Nitrogen 32 mg/dl Creatinine 4.30 mg/dl Est Creatinine Clear Calc Drug Dose 15.2 ml/min Estimated GFR () 11.3 Estimated GFR (Non- 9.7 BUN/Creatinine Ratio 7.3 Random Glucose 93 mg/dl Calcium Level 9.1 mg/dl Test 12/07/16 20:10 Bedside Glucose 125 mg/dl Assessment and Plan 1 sepsis secondary to UTI or pneumonia: improving, On IV vanco and impenem. Awaiting final C & S. 2 COPD exacerbation - duonebs. 3. New onset A fib: On oral amiodarone. Had episode of RVR this am but resolved after dose of amiodarone was given. 4. ESRD on HD: stable. 5. Encephalopathy: She continues to make improvements in her mentation, even more so than I had expected. 6 Hypothyroid: cont synthroid. 7 Anemia: continue to monitor. DVT prophylaxis: heparin When medically stable and we have solid direction on antibiotics will transfer back to [facility].
[2016-12-07] MEDS: ATORVASTATIN 20 MG TAB PO SCH (20:55)
[2016-12-07] MEDS: ESCITALOPRAM OXALATE 10 MG TAB PO SCH (20:55)
[2016-12-07] MEDS: METOPROLOL SUCC 25MG EXT REL TAB PO SCH (20:55)
[2016-12-07] MEDS: AMIODARONE 200 MG TAB PO SCH (20:56)
[2016-12-08] VITALS (19 sets, daily range): BP systolic 129–166; BP diastolic 46–77; PULSE 67–84; TEMP 36.8–37.1; O2SAT 92–99
[2016-12-08] MEDS: IMIPENEM/CILASTATIN IV 500 MG in DEXTROSE 5% 100ML 100 ML IV SCH ×2 (01:27→14:13)
[2016-12-08] MEDS: LEVOTHYROXINE 75 MCG TAB PO SCH (05:54)
[2016-12-08] MEDS: INSULIN ASPART 100 UNITS/ML 3 ML PEN SC SCH ×4 (06:30→20:53)
[2016-12-08] MEDS: ALBUT/IPRATROP 3MG/0.5MG NEB 3 ML VIAL INH SCH ×5 (07:33→20:00)
[2016-12-08] MEDS ORDERED: EPOETIN ALFA 10,000 UNITS/ML VIAL IV. SCH (08:00)
[2016-12-08] MEDS ORDERED: ALBUMIN HUMAN 25% 12.5 GM/50 ML VIAL IV SCH (08:00)
[2016-12-08 08:10] LABS: BUN/CREATININE RATIO 7.6 (10-20); CALCIUM 8.8 mg/dl (8.5-10.1); CREATININE 5.4 mg/dl (0.60-1.20)
[2016-12-08 08:48] LABS: MEAN CELL VOLUME 99.3 fL (80-100); MEAN CORPUSCULAR HEMOGLOBIN 31.3 pg (25-34); MEAN CORPUSCULAR HGB CONC 31.5 g/dl (32-36); PLATELET COUNT 130 K/uL (130-400); RED BLOOD COUNT 2.72 M/uL (4.2-5.4); WHITE BLOOD COUNT 6.02 K/uL (4.8-10.8)
[2016-12-08 08:49] LABS: BASO % 0.2 %; BASO ABS # 0.01 K/uL (0-0.2); COMPLETE YES; IG% 0.3 %; LYMPH % 9.3 %; LYMPH ABS # 0.56 K/uL (1.2-3.4); MONO % 7.5 %; NEUT % 78.7 %; PLT ESTIMATE DECREASED
[2016-12-08] MEDS: AMIODARONE 200 MG TAB PO SCH ×2 (08:50→21:00)
[2016-12-08] MEDS: CLOPIDOGREL BISULFATE 75 MG TAB PO SCH (08:51)
[2016-12-08] MEDS: PANTOprazole SOD 40 MG TAB PO SCH (08:51)
[2016-12-08] MEDS: ASPIRIN 81 MG ECTAB PO SCH (08:51)
[2016-12-08] MEDS: GUAIFENESIN 600 MG TABCR PO SCH ×2 (08:51→21:04)
[2016-12-08] MEDS: METOPROLOL SUCC 25MG EXT REL TAB PO SCH ×2 (08:52→21:03)
[2016-12-08] MEDS: INSULIN GLARGINE SOLOSTAR 100 UNITS/ML 3 ML PEN SC SCH ×2 (08:54→20:53)
[2016-12-08] MEDS: HEPARIN SOD 5000 UNIT/0.5 ML CARP SQ SCH ×2 (08:56→21:07)
[2016-12-08] MEDS: MODAFINIL 100 MG TAB PO SCH (08:57)
--- NOTE | 2016-12-08 10:07 | Dialysis Progress Note ---
Nephrology Dialysis Note Date of Service: Dec 08, 2016. Subjective 71 yo female with significant presentation of sepsis and fluid overload requiring pressors and samuel hugger. pt doing much better now. seen on dialysis. tolerating fluid removal. head tremor not as bad. pt more alert. Objective Date Time Temp Pulse Resp B/P Pulse Ox O2 Delivery O2 Flow Rate FiO2 12/08/16 09:45 71 153/59 12/08/16 09:30 72 158/60 12/08/16 09:17 73 161/67 12/08/16 09:08 37.0 76 166/53 12/08/16 07:55 37.1 69 20 149/77 99 Nasal Cannula 2.0 12/08/16 00:00 Nasal Cannula 2.0 12/07/16 23:04 36.8 66 16 140/71 100 Nasal Cannula 2.5 12/07/16 20:54 67 146/70 12/07/16 20:30 Nasal Cannula 2.0 12/07/16 16:22 Room Air 12/07/16 14:54 37.0 69 20 132/76 98 Nasal Cannula 2.0 12/07/16 12:19 94 Nasal Cannula 2.0 12/07/16 12:18 72 18 167/74 88 Room Air 12/07/16 11:21 95 16 97 Room Air Physical Exam: General-aaox3, underlying dementia Eyes-no scleral icterus ENT-mmm Neck-supple Lungs-basilar rales Heart-rrr Abdomen-bs+ s/nt/nd, +ventral hernia Extremities-no edema Neuro-tremors Current Inpatient Medications Medications (Trade) Dose Ordered Sig/Gelacio Route Start Time Stop Time Status Last Admin Dose Admin Glucose (Glucose 40% Gel) 15-30 GRAMS 15 GRAMS... UD PRN PO 12/01/16 14:15 12/31/16 14:14 Glucose (Glucose Chew Tab) 4-8 Tablets 4 Tabl... UD PRN PO 12/01/16 14:15 12/31/16 14:14 Dextrose (Dextrose 50% 50ML Syringe) 25-50ML OF 50% DW IV FOR... UD PRN IV 12/01/16 14:15 12/31/16 14:14 12/04/16 08:16 50 ML Glucagon (Glucagon Inj) 1 mg UD PRN SQ 12/01/16 14:15 12/31/16 14:14 Miscellaneous Information (Consult Glycemic Management Pharmacy) 1 ea UD N/A 12/01/16 14:34 12/31/16 14:33 Acetaminophen (Tylenol Tab) 650 mg Q4H PRN PO 12/01/16 14:15 12/31/16 14:14 12/06/16 19:29 650 MG Nitroglycerin (Nitrostat Tab) 0.4 mg UD PRN SL 12/01/16 14:15 12/31/16 14:14 Albuterol/ Ipratropium (Duoneb) 3 ml QIDR INH 12/01/16 16:00 12/31/16 15:59 12/07/16 11:22 3 ML Aspirin (Ecotrin Tab) 81 mg DAILY PO 12/02/16 09:00 01/01/17 08:59 12/08/16 08:51 81 MG Atorvastatin Calcium (Lipitor Tab) 40 mg HS PO 12/01/16 21:00 12/31/16 20:59 12/07/16 20:55 40 MG Clopidogrel Bisulfate (plAVix TAB) 75 mg DAILY PO 12/02/16 09:00 01/01/17 08:59 12/08/16 08:51 75 MG Escitalopram Oxalate (Lexapro Tab) 10 mg HS PO 12/01/16 21:00 12/31/16 20:59 12/07/16 20:55 10 MG Guaifenesin (Mucinex Contr Rel Tab) 600 mg Q12 PO 12/01/16 21:00 12/31/16 20:59 12/08/16 08:51 600 MG Insulin Glargine (Lantus Solostar Pen) 0 units if BSG less than 110... Q12 SC 12/01/16 21:00 12/31/16 20:59 12/07/16 20:53 4 UNIT Levothyroxine Sodium (Synthroid Tab) 75 mcg DAILYBB PO 12/02/16 06:00 01/01/17 05:59 12/08/16 05:54 75 MCG Albuterol/ Ipratropium (Duoneb) 3 ml Q2R PRN INH 12/01/16 14:45 12/31/16 14:44 Vancomycin HCl (Consult) 1 ea UD PRN N/A 12/01/16 15:15 12/31/16 15:14 Acetaminophen (Ofirmev Iv) 1,000 mg Q8H PRN IV 12/02/16 16:30 01/01/17 16:29 12/02/16 16:35 1,000 MG Heparin Sodium (Porcine) (Heparin Sq 5000 Unit/0.5ml) 5,000 unit Q12 SQ 12/03/16 21:00 01/02/17 20:59 12/08/16 08:56 5,000 UNIT Metoprolol Tartrate (Lopressor Iv) 5 mg Q4 PRN IV 12/03/16 12:15 01/02/17 12:14 Insulin Aspart SLIDING SCALE If C... ACHS SC 12/03/16 16:00 01/02/17 15:59 12/03/16 20:15 3 UNITS Imipenem/ Cilastatin Sodium/ Dextrose (Primaxin Iv/D5 100ml) 110 ml @ 100 mls/hr Q12H IV 12/04/16 14:00 12/14/16 13:59 12/08/16 01:27 100 MLS/HR Imipenem/ Cilastatin Sodium (Consult) 1 ea UD PRN N/A 12/04/16 10:30 01/03/17 10:29 Modafinil (proVIGIL TAB) 100 mg QAM PO 12/05/16 09:00 01/04/17 08:59 12/08/16 08:57 100 MG Miconazole Nitrate (Desenex Powder) 1 appln BID PRN EXT 12/06/16 13:00 01/05/17 12:59 Pantoprazole Sodium (Protonix Tab) 40 mg DAILY PO 12/07/16 09:00 01/06/17 08:59 12/08/16 08:51 40 MG Amiodarone HCl (Cordarone Tab) 200 mg BID PO 12/07/16 21:00 01/06/17 20:59 12/07/16 20:56 200 MG Metoprolol Succinate (Toprol Xl Tab) 12.5 mg BID PO 12/07/16 21:00 01/06/17 20:59 12/07/16 20:55 12.5 MG Epoetin Sammy (Procrit Inj) 10,000 units TODAY@0800 IV. 12/08/16 08:00 12/08/16 16:00 Albumin Human (Albumin 25%) 12.5 gm TODAY@0800 IV 12/08/16 08:00 12/08/16 16:00 12/08/16 09:19 12.5 GM Last 24 Hours Test 12/07/16 11:33 12/07/16 16:10 12/07/16 20:10 12/08/16 06:45 Bedside Glucose 139 mg/dl 107 mg/dl 125 mg/dl White Blood Count 6.02 K/uL Red Blood Count 2.72 M/uL Hemoglobin 8.5 g/dL Hematocrit 27.0 % Mean Corpuscular Volume 99.3 fL Mean Corpuscular Hemoglobin 31.3 pg Mean Corpuscular Hemoglobin Concent 31.5 g/dl Platelet Count 130 K/uL Mean Platelet Volume 12.0 fL Neutrophils (%) (Auto) 78.7 % Lymphocytes (%) (Auto) 9.3 % Monocytes (%) (Auto) 7.5 % Eosinophils (%) (Auto) 4.0 % Basophils (%) (Auto) 0.2 % Neutrophils # (Auto) 4.74 K/uL Lymphocytes # (Auto) 0.56 K/uL Monocytes # (Auto) 0.45 K/uL Eosinophils # (Auto) 0.24 K/uL Basophils # (Auto) 0.01 K/uL RDW Standard Deviation 63.9 fL RDW Coefficient of Variation 17.6 % Immature Granulocyte % (Auto) 0.3 % Immature Granulocyte # (Auto) 0.02 K/uL Platelet Estimate DECREASED Red Blood Cell Morphology Unremarkable Sodium Level 133 mmol/L Potassium Level 4.0 mmol/L Chloride Level 94 mmol/L Carbon Dioxide Level 27 mmol/L Anion Gap 12.0 mmol/L Blood Urea Nitrogen 41 mg/dl Creatinine 5.40 mg/dl Est Creatinine Clear Calc Drug Dose 12.2 ml/min Estimated GFR () 8.5 Estimated GFR (Non- 7.4 BUN/Creatinine Ratio 7.6 Random Glucose 78 mg/dl Calcium Level 8.8 mg/dl Random Vancomycin Level 18.3 mcg/ml Test 12/08/16 07:27 Bedside Glucose 78 mg/dl Assessment & Plan ESRD-seen on dialysis today. bp good. tolerating fluid removal. has basilar rales but usually does as an outpt. access working well. pt continues to clinically improve. Anemia of renal failure-goal hg of 10 to 11. hg of 8.5. transfuse if hg under 7. continue procrit on dialysis.
--- NOTE | 2016-12-08 11:29 | PROGRESS NOTE ---
DATE: 12/08/2016 The patient was seen and examined. Chart, medications, and telemetry were reviewed. SUBJECTIVE: The patient is on dialysis and tolerating well. Notes no dizziness or lightheadedness. Notes no complaints. Overall clinically appears improved from initial admission. OBJECTIVE: VITAL SIGNS: Heart rate is 76 and blood pressure is 166/53. NECK: Thick. There is no distinct jugular venous distention. LUNGS: Clear. CARDIOVASCULAR: Regular. There is no S3 gallop. EXTREMITIES: Without cyanosis or clubbing. There is no edema. IMPRESSION: A 71-year-old female with paroxysmal atrial fibrillation, acute exacerbations after adjustments of medical therapies and acute illness, now remaining in sinus rhythm. Would continue Toprol-XL 12.5 mg twice per day and amiodarone 200 mg twice per day. Would not hold metoprolol or amiodarone prior to dialysis in the future given paroxysmal atrial arrhythmias. Continue aspirin and clopidogrel.
--- NOTE | 2016-12-08 12:04 | Infectious Disease Progress Nt ---
Progress Note Date of Service Dec 08, 2016. Subjective Pt evaluation today including: conversation w/ patient, physical exam, chart review, lab review, review of studies, review of inpatient medication list WBC this morning was 6.02. Creatinine was 5.40. She was on dialysis while I was in the room this morning. She continues on IV Primaxin and Vancomycin. She will have her last dose of Vancomycin this morning but this will cover her through the weekend. I spoke to pharmacy about the patient as well regarding her antibiotic therapy. The patient states that she is feeling slightly improved this morning. She is more talkative and states she is having no pain. Repeat blood cultures showing no growth to date. All Other Systems: Reviewed and Negative Medications Current Inpatient Medications Medications (Trade) Dose Ordered Sig/Gelacio Route Start Time Stop Time Status Last Admin Dose Admin Glucose (Glucose 40% Gel) 15-30 GRAMS 15 GRAMS... UD PRN PO 12/01/16 14:15 12/31/16 14:14 Glucose (Glucose Chew Tab) 4-8 Tablets 4 Tabl... UD PRN PO 12/01/16 14:15 12/31/16 14:14 Dextrose (Dextrose 50% 50ML Syringe) 25-50ML OF 50% DW IV FOR... UD PRN IV 12/01/16 14:15 12/31/16 14:14 12/04/16 08:16 50 ML Glucagon (Glucagon Inj) 1 mg UD PRN SQ 12/01/16 14:15 12/31/16 14:14 Miscellaneous Information (Consult Glycemic Management Pharmacy) 1 ea UD N/A 12/01/16 14:34 12/31/16 14:33 Acetaminophen (Tylenol Tab) 650 mg Q4H PRN PO 12/01/16 14:15 12/31/16 14:14 12/06/16 19:29 650 MG Nitroglycerin (Nitrostat Tab) 0.4 mg UD PRN SL 12/01/16 14:15 12/31/16 14:14 Albuterol/ Ipratropium (Duoneb) 3 ml QIDR INH 12/01/16 16:00 12/31/16 15:59 12/07/16 11:22 3 ML Aspirin (Ecotrin Tab) 81 mg DAILY PO 12/02/16 09:00 01/01/17 08:59 12/08/16 08:51 81 MG Atorvastatin Calcium (Lipitor Tab) 40 mg HS PO 12/01/16 21:00 12/31/16 20:59 12/07/16 20:55 40 MG Clopidogrel Bisulfate (plAVix TAB) 75 mg DAILY PO 12/02/16 09:00 01/01/17 08:59 12/08/16 08:51 75 MG Escitalopram Oxalate (Lexapro Tab) 10 mg HS PO 12/01/16 21:00 12/31/16 20:59 12/07/16 20:55 10 MG Guaifenesin (Mucinex Contr Rel Tab) 600 mg Q12 PO 12/01/16 21:00 12/31/16 20:59 12/08/16 08:51 600 MG Insulin Glargine (Lantus Solostar Pen) 0 units if BSG less than 110... Q12 SC 12/01/16 21:00 12/31/16 20:59 12/07/16 20:53 4 UNIT Levothyroxine Sodium (Synthroid Tab) 75 mcg DAILYBB PO 12/02/16 06:00 01/01/17 05:59 12/08/16 05:54 75 MCG Albuterol/ Ipratropium (Duoneb) 3 ml Q2R PRN INH 12/01/16 14:45 12/31/16 14:44 Vancomycin HCl (Consult) 1 ea UD PRN N/A 12/01/16 15:15 12/31/16 15:14 Acetaminophen (Ofirmev Iv) 1,000 mg Q8H PRN IV 12/02/16 16:30 01/01/17 16:29 12/02/16 16:35 1,000 MG Heparin Sodium (Porcine) (Heparin Sq 5000 Unit/0.5ml) 5,000 unit Q12 SQ 12/03/16 21:00 01/02/17 20:59 12/08/16 08:56 5,000 UNIT Metoprolol Tartrate (Lopressor Iv) 5 mg Q4 PRN IV 12/03/16 12:15 01/02/17 12:14 Insulin Aspart SLIDING SCALE If C... ACHS SC 12/03/16 16:00 01/02/17 15:59 12/03/16 20:15 3 UNITS Imipenem/ Cilastatin Sodium/ Dextrose (Primaxin Iv/D5 100ml) 110 ml @ 100 mls/hr Q12H IV 12/04/16 14:00 12/14/16 13:59 12/08/16 01:27 100 MLS/HR Imipenem/ Cilastatin Sodium (Consult) 1 ea UD PRN N/A 12/04/16 10:30 01/03/17 10:29 Modafinil (proVIGIL TAB) 100 mg QAM PO 12/05/16 09:00 01/04/17 08:59 12/08/16 08:57 100 MG Miconazole Nitrate (Desenex Powder) 1 appln BID PRN EXT 12/06/16 13:00 01/05/17 12:59 Pantoprazole Sodium (Protonix Tab) 40 mg DAILY PO 12/07/16 09:00 01/06/17 08:59 12/08/16 08:51 40 MG Amiodarone HCl (Cordarone Tab) 200 mg BID PO 12/07/16 21:00 01/06/17 20:59 12/07/16 20:56 200 MG Metoprolol Succinate (Toprol Xl Tab) 12.5 mg BID PO 12/07/16 21:00 01/06/17 20:59 12/07/16 20:55 12.5 MG Epoetin Sammy (Procrit Inj) 10,000 units TODAY@0800 IV. 12/08/16 08:00 12/08/16 16:00 12/08/16 10:50 10,000 UNITS Albumin Human 12.5 gm 12.5 gm TODAY@0800 IV 12/08/16 08:00 12/08/16 16:00 12/08/16 09:19 12.5 GM Vancomycin HCl/ Sodium Chloride (Vancomycin Inj/ Nss 250ml) 260 ml @ 125 mls/hr TODAY@1300 IV 12/08/16 13:00 12/08/16 15:05 Objective Vital Signs Date Time Temp Pulse Resp B/P Pulse Ox O2 Delivery O2 Flow Rate FiO2 12/08/16 11:15 70 157/53 12/08/16 11:00 69 145/57 12/08/16 10:45 70 154/46 12/08/16 10:30 71 151/52 12/08/16 10:15 71 156/56 12/08/16 10:00 67 136/68 12/08/16 09:45 71 153/59 12/08/16 09:30 72 158/60 12/08/16 09:17 73 161/67 12/08/16 09:08 37.0 76 166/53 12/08/16 08:00 99 Nasal Cannula 2.0 12/08/16 07:55 37.1 69 20 149/77 99 Nasal Cannula 2.0 12/08/16 00:00 Nasal Cannula 2.0 12/07/16 23:04 36.8 66 16 140/71 100 Nasal Cannula 2.5 12/07/16 20:54 67 146/70 12/07/16 20:30 Nasal Cannula 2.0 12/07/16 16:22 Room Air 12/07/16 14:54 37.0 69 20 132/76 98 Nasal Cannula 2.0 12/07/16 12:19 94 Nasal Cannula 2.0 12/07/16 12:18 72 18 167/74 88 Room Air Physical Exam General Appearance: no apparent distress, + obese Eyes: normal inspection, sclerae normal ENT: hearing grossly normal Neck: supple, trachea midline Respiratory/Chest: chest non-tender, lungs clear, normal breath sounds, no respiratory distress, no accessory muscle use Cardiovascular: regular rate, rhythm, + systolic murmur Abdomen: normal bowel sounds, non tender, soft, + pertinent finding (ventral hernia-nontender) Extremities: no pedal edema 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: alert, normal mood/affect Skin: normal color, warm/dry, no rash Laboratory Results Item Value Date Time Blood Culture - Preliminary Resulted 12/06/16 1145 Blood NO GROWTH TO DATE. Blood Culture - Preliminary Resulted 12/06/16 1110 Blood NO GROWTH TO DATE. Last 24 Hours Test 12/07/16 16:10 12/07/16 20:10 12/08/16 06:45 12/08/16 07:27 Bedside Glucose 107 mg/dl 125 mg/dl 78 mg/dl White Blood Count 6.02 K/uL Red Blood Count 2.72 M/uL Hemoglobin 8.5 g/dL Hematocrit 27.0 % Mean Corpuscular Volume 99.3 fL Mean Corpuscular Hemoglobin 31.3 pg Mean Corpuscular Hemoglobin Concent 31.5 g/dl Platelet Count 130 K/uL Mean Platelet Volume 12.0 fL Neutrophils (%) (Auto) 78.7 % Lymphocytes (%) (Auto) 9.3 % Monocytes (%) (Auto) 7.5 % Eosinophils (%) (Auto) 4.0 % Basophils (%) (Auto) 0.2 % Neutrophils # (Auto) 4.74 K/uL Lymphocytes # (Auto) 0.56 K/uL Monocytes # (Auto) 0.45 K/uL Eosinophils # (Auto) 0.24 K/uL Basophils # (Auto) 0.01 K/uL RDW Standard Deviation 63.9 fL RDW Coefficient of Variation 17.6 % Immature Granulocyte % (Auto) 0.3 % Immature Granulocyte # (Auto) 0.02 K/uL Platelet Estimate DECREASED Red Blood Cell Morphology Unremarkable Sodium Level 133 mmol/L Potassium Level 4.0 mmol/L Chloride Level 94 mmol/L Carbon Dioxide Level 27 mmol/L Anion Gap 12.0 mmol/L Blood Urea Nitrogen 41 mg/dl Creatinine 5.40 mg/dl Est Creatinine Clear Calc Drug Dose 12.2 ml/min Estimated GFR () 8.5 Estimated GFR (Non- 7.4 BUN/Creatinine Ratio 7.6 Random Glucose 78 mg/dl Calcium Level 8.8 mg/dl Random Vancomycin Level 18.3 mcg/ml Test 12/08/16 11:18 Bedside Glucose 82 mg/dl Assessment and Plan (1) Septic shock Status: Acute (2) End-stage renal disease on hemodialysis Status: Chronic (3) Diabetes mellitus type 2 in obese Status: Chronic Patient with probable bibasilar pneumonia, possibly aspiration pna with encephalopathy, sepsis, and Pseudomonas UTI. She is currently on IV Vancomycin and Imipenem. Repeat blood cultures negative. She will receive final Vancomycin dose this morning, which will cover her through the weekend for MRSA. She also continues on Imipenem which is appropriate for possible aspiration pneumonia. Will order repeat CXR for today. If her X-Ray looks much improved and she continues to improve, consider discharge over the weekend. We will follow. PROVIDER ADDENDUM: Patient reviewed with Ms. Blackwell. Agree with above assessment.
--- NOTE | 2016-12-08 12:10 | Pharmacy Progress Note ---
Pharmacy Antibiotic Prog Note Date of Service: Dec 08, 2016. Subjective: The patient is currently receiving VANC-IV redosed based on Random Vanc level. * The patient is currently on day # 8 of VANC-IV therapy. Pertinent PMH: [facility] resident, Hx MDRO, ESRD on chronic HD, DM, COPD Objective: Height (Feet): 5 Height (Inches): 7.00 Weight (Kilograms): 108.800 Levels: Item Value Date Time Random Vancomycin Level 18.3 mcg/ml 12/08/16 0645 Random Vancomycin Level 18.6 mcg/ml 12/06/16 0745 Random Vancomycin Level 19.1 mcg/ml 12/04/16 0520 Random Vancomycin Level 19.7 mcg/ml 12/02/16 0530 Lab Results (24hrs): Laboratory Tests Test 12/08/16 06:45 BUN/Creatinine Ratio 7.6 Blood Urea Nitrogen 41 mg/dl Creatinine 5.40 mg/dl White Blood Count 6.02 K/uL Red Blood Count 2.72 M/uL Hemoglobin 8.5 g/dL Hematocrit 27.0 % Mean Corpuscular Volume 99.3 fL Mean Corpuscular Hemoglobin 31.3 pg Mean Corpuscular Hemoglobin Concent 31.5 g/dl Platelet Count 130 K/uL Mean Platelet Volume 12.0 fL Neutrophils (%) (Auto) 78.7 % Lymphocytes (%) (Auto) 9.3 % Monocytes (%) (Auto) 7.5 % Eosinophils (%) (Auto) 4.0 % Basophils (%) (Auto) 0.2 % Neutrophils # (Auto) 4.74 K/uL Lymphocytes # (Auto) 0.56 K/uL Monocytes # (Auto) 0.45 K/uL Eosinophils # (Auto) 0.24 K/uL Basophils # (Auto) 0.01 K/uL Micro Results: * BC x 2 from 12/06/16: NGTD * ID team to order CXR today to aid f/u Recent Pertinent Medications: * Day 6: imipenem 500mg IV q 12 hours Assessment & Plan: PLAN: Discussed plan with JOSE A Dickinson Team. Will redose Vanc-IV after HD today. This drug will stay on board over weekend. ID to reorder VANC consult if appropriate. Continues imipenem (Day # 6). VANC-IV: * This drug level is: Therapeutic. Will redose a supplemental dose of Vanc-IV after HD today. * SUPPLEMENTAL HD DOSE: VANC 500mg IV x 1 dose after HD today. * No further levels as therapy complete unless consult reordered by ID Team.
[2016-12-08] MEDS ORDERED: VANCOMYCIN INJ 500 MG in SODIUM CHLORIDE 0.9% 250ML 250 ML IV SCH (13:00)
--- NOTE | 2016-12-08 13:58 | DIAGNOSTIC IMAGING REPORT ---
SINGLE VIEW CHEST CLINICAL HISTORY: Dyspnea. Pneumonia. FINDINGS: An AP, portable, upright chest radiograph is compared to study dated 12/03/2016 and correlated with chest CT dated 11/15/2015. The examination is degraded by portable technique, large body habitus, and patient rotation. The heart is enlarged and there is atherosclerotic calcification of the thoracic aorta. There is pulmonary vascular congestion with interstitial edema. More focal airspace opacities are present in the right midlung. Small layering pleural effusions are identified. No pneumothorax is seen. The skeletal structures are osteopenic. The bony thorax is grossly intact. IMPRESSION: 1. Cardiomegaly with congestive failure and interstitial edema. This is similar in appearance to 12/03/2016. 2. More focal airspace opacities are seen in the right midlung and could represent more confluent pulmonary edema. A superimposed infectious or inflammatory pneumonitis would be impossible to exclude. Clinical correlation will be required and continued radiographic follow-up to resolution is recommended. 3. Layering pleural effusions are noted. Electronically signed by: Weston Crum M.D. 12/08/2016 1:56 PM Dictated Date/Time: 12/08/2016 1:53 PM
--- NOTE | 2016-12-08 18:30 | Hospitalist Progress Note ---
Hospitalist Progress Note Date of Service Dec 08, 2016. Subjective Pt evaluation today including: conversation w/ patient, physical exam, chart review, lab review, review of studies, review of inpatient medication list Patient doing about the same. No new concerns. Additional Comments: A 10 system review was performed and all were negative. Positives were placed in the subjective section. Objective Vital Signs Date Time Temp Pulse Resp B/P Pulse Ox O2 Delivery O2 Flow Rate FiO2 12/08/16 16:00 Room Air 12/08/16 15:22 36.8 84 20 145/70 92 Room Air 12/08/16 12:53 36.9 70 139/49 12/08/16 12:00 70 129/46 12/08/16 11:45 71 146/50 12/08/16 11:30 71 148/53 12/08/16 11:15 70 157/53 12/08/16 11:00 69 145/57 12/08/16 10:45 70 154/46 12/08/16 10:30 71 151/52 12/08/16 10:15 71 156/56 12/08/16 10:00 67 136/68 12/08/16 09:45 71 153/59 12/08/16 09:30 72 158/60 12/08/16 09:17 73 161/67 12/08/16 09:08 37.0 76 166/53 12/08/16 08:00 99 Nasal Cannula 2.0 12/08/16 07:55 37.1 69 20 149/77 99 Nasal Cannula 2.0 12/08/16 00:00 Nasal Cannula 2.0 12/07/16 23:04 36.8 66 16 140/71 100 Nasal Cannula 2.5 12/07/16 20:54 67 146/70 12/07/16 20:30 Nasal Cannula 2.0 Physical Exam Notes: GEN: Awake, alert, oriented to person. Not in acute distress HEENT: Tm's intact, no inflammation, EOMI, PERRLA, MMM Neck: Soft, supple Lungs: CTA b/l, no r/r/w Heart: REG, nrl S1S2 without murmurs, rubs or gallops Abdomen: Soft, NT, ND, + BS EXT: No C/C + lower extremity edema. NEURO: CN's II-XII grossly intact, non-focal Skin: warm, dry, no rashes PSYCH: pleasant, no agitation. Laboratory Results Last 24 Hours Test 12/07/16 20:10 12/08/16 06:45 12/08/16 07:27 12/08/16 11:18 Bedside Glucose 125 mg/dl 78 mg/dl 82 mg/dl White Blood Count 6.02 K/uL Red Blood Count 2.72 M/uL Hemoglobin 8.5 g/dL Hematocrit 27.0 % Mean Corpuscular Volume 99.3 fL Mean Corpuscular Hemoglobin 31.3 pg Mean Corpuscular Hemoglobin Concent 31.5 g/dl Platelet Count 130 K/uL Mean Platelet Volume 12.0 fL Neutrophils (%) (Auto) 78.7 % Lymphocytes (%) (Auto) 9.3 % Monocytes (%) (Auto) 7.5 % Eosinophils (%) (Auto) 4.0 % Basophils (%) (Auto) 0.2 % Neutrophils # (Auto) 4.74 K/uL Lymphocytes # (Auto) 0.56 K/uL Monocytes # (Auto) 0.45 K/uL Eosinophils # (Auto) 0.24 K/uL Basophils # (Auto) 0.01 K/uL RDW Standard Deviation 63.9 fL RDW Coefficient of Variation 17.6 % Immature Granulocyte % (Auto) 0.3 % Immature Granulocyte # (Auto) 0.02 K/uL Platelet Estimate DECREASED Red Blood Cell Morphology Unremarkable Sodium Level 133 mmol/L Potassium Level 4.0 mmol/L Chloride Level 94 mmol/L Carbon Dioxide Level 27 mmol/L Anion Gap 12.0 mmol/L Blood Urea Nitrogen 41 mg/dl Creatinine 5.40 mg/dl Est Creatinine Clear Calc Drug Dose 12.2 ml/min Estimated GFR () 8.5 Estimated GFR (Non- 7.4 BUN/Creatinine Ratio 7.6 Random Glucose 78 mg/dl Calcium Level 8.8 mg/dl Random Vancomycin Level 18.3 mcg/ml Test 12/08/16 16:31 Bedside Glucose 144 mg/dl Assessment and Plan 1 sepsis secondary to UTI or pneumonia: improving, On IV vanco and impenem. Last dose of vanco today. 2 COPD exacerbation - duonebs. 3. New onset A fib: On oral amiodarone. rate now stable. 4. ESRD on HD: stable. 5. Encephalopathy: Has essentially resolved. 6 Hypothyroid: cont synthroid. 7 Anemia: continue to monitor. DVT prophylaxis: heparin When medically stable and we have solid direction on antibiotics will transfer back to [facility]. This could be over the weekend, see ID note from today.
[2016-12-08] MEDS: ATORVASTATIN 20 MG TAB PO SCH (21:04)
[2016-12-08] MEDS: ESCITALOPRAM OXALATE 10 MG TAB PO SCH (21:05)
[2016-12-09] VITALS (13 sets, daily range): BP systolic 145–150; BP diastolic 56–73; PULSE 74–84; TEMP 36.4–37; O2SAT 89–98
[2016-12-09] MEDS: IMIPENEM/CILASTATIN IV 500 MG in DEXTROSE 5% 100ML 100 ML IV SCH ×2 (01:26→14:50)
[2016-12-09] MEDS: LEVOTHYROXINE 75 MCG TAB PO SCH (05:58)
[2016-12-09] MEDS: INSULIN ASPART 100 UNITS/ML 3 ML PEN SC SCH ×4 (06:30→20:14)
[2016-12-09 07:16] LABS: BASO % 0.4 %; BASO ABS # 0.02 K/uL (0-0.2); COMPLETE YES; EOS % 3.6 %; HEMATOCRIT 30.1 % (37-47); IG% 0.4 %; LYMPH % 14.2 %; LYMPH ABS # 0.76 K/uL (1.2-3.4); MEAN CELL VOLUME 99.3 fL (80-100); MEAN CORPUSCULAR HGB CONC 31.2 g/dl (32-36); MONO % 4.9 %; NEUT % 76.5 %; PLATELET COUNT 139 K/uL (130-400); RED BLOOD COUNT 3.03 M/uL (4.2-5.4); WHITE BLOOD COUNT 5.35 K/uL (4.8-10.8)
[2016-12-09] MEDS: ALBUT/IPRATROP 3MG/0.5MG NEB 3 ML VIAL INH SCH ×4 (07:48→19:50)
[2016-12-09 08:07] LABS: BUN/CREATININE RATIO 5.7 (10-20); CALCIUM 8.8 mg/dl (8.5-10.1); CREATININE 4.2 mg/dl (0.60-1.20); POTASSIUM 3.7 mmol/L (3.5-5.1)
[2016-12-09] MEDS: INSULIN GLARGINE SOLOSTAR 100 UNITS/ML 3 ML PEN SC SCH ×2 (09:00→20:14)
[2016-12-09] MEDS: GUAIFENESIN 600 MG TABCR PO SCH ×2 (10:15→20:48)
[2016-12-09] MEDS: AMIODARONE 200 MG TAB PO SCH ×2 (10:15→20:50)
[2016-12-09] MEDS: ASPIRIN 81 MG ECTAB PO SCH (10:15)
[2016-12-09] MEDS: PANTOprazole SOD 40 MG TAB PO SCH (10:15)
[2016-12-09] MEDS: CLOPIDOGREL BISULFATE 75 MG TAB PO SCH (10:16)
[2016-12-09] MEDS: METOPROLOL SUCC 25MG EXT REL TAB PO SCH ×2 (10:17→20:50)
[2016-12-09] MEDS: HEPARIN SOD 5000 UNIT/0.5 ML CARP SQ SCH ×2 (10:20→20:50)
[2016-12-09] MEDS: MODAFINIL 100 MG TAB PO SCH (10:20)
--- NOTE | 2016-12-09 15:13 | Hospitalist Progress Note ---
Hospitalist Progress Note Date of Service Dec 09, 2016. Subjective Pt evaluation today including: conversation w/ patient, physical exam, chart review, lab review, review of studies, review of inpatient medication list Patient is in good spirits. Yesterdays chest X-ray has not shown a clear improvement thus we should keep the IV antibiotic through the weekend. She is due for dialysis on Sunday. Additional Comments: A 10 system review was performed and all were negative. Positives were placed in the subjective section. Objective Vital Signs Date Time Temp Pulse Resp B/P Pulse Ox O2 Delivery O2 Flow Rate FiO2 12/09/16 12:09 80 16 95 Room Air 12/09/16 09:35 91 Room Air 12/09/16 08:00 91 Nasal Cannula 2.0 12/09/16 07:49 36.4 84 16 150/73 91 Room Air 12/09/16 07:48 80 16 98 Nasal Cannula 2.0 12/09/16 00:30 98 Nasal Cannula 2.0 12/09/16 00:10 89 Room Air 12/08/16 23:37 36.9 84 19 153/72 93 Room Air 12/08/16 20:30 83 149/50 12/08/16 16:00 Room Air 12/08/16 15:22 36.8 84 20 145/70 92 Room Air Physical Exam Notes: GEN: Awake, alert, oriented to person and place. Not in acute distress HEENT: Tm's intact, no inflammation, EOMI, PERRLA, MMM Neck: Soft, supple Lungs: CTA b/l, no r/r/w Heart: REG, nrl S1S2 without murmurs, rubs or gallops Abdomen: Soft, NT, ND, + BS EXT: No C/C + lower extremity edema. NEURO: CN's II-XII grossly intact, non-focal Skin: warm, dry, no rashes PSYCH: pleasant, no agitation. Laboratory Results Last 24 Hours Test 12/08/16 16:31 12/08/16 20:15 12/09/16 07:01 12/09/16 07:36 Bedside Glucose 144 mg/dl 98 mg/dl 81 mg/dl White Blood Count 5.35 K/uL Red Blood Count 3.03 M/uL Hemoglobin 9.4 g/dL Hematocrit 30.1 % Mean Corpuscular Volume 99.3 fL Mean Corpuscular Hemoglobin 31.0 pg Mean Corpuscular Hemoglobin Concent 31.2 g/dl Platelet Count 139 K/uL Mean Platelet Volume 12.0 fL Neutrophils (%) (Auto) 76.5 % Lymphocytes (%) (Auto) 14.2 % Monocytes (%) (Auto) 4.9 % Eosinophils (%) (Auto) 3.6 % Basophils (%) (Auto) 0.4 % Neutrophils # (Auto) 4.10 K/uL Lymphocytes # (Auto) 0.76 K/uL Monocytes # (Auto) 0.26 K/uL Eosinophils # (Auto) 0.19 K/uL Basophils # (Auto) 0.02 K/uL RDW Standard Deviation 63.5 fL RDW Coefficient of Variation 17.5 % Immature Granulocyte % (Auto) 0.4 % Immature Granulocyte # (Auto) 0.02 K/uL Sodium Level 140 mmol/L Potassium Level 3.7 mmol/L Chloride Level 98 mmol/L Carbon Dioxide Level 28 mmol/L Anion Gap 14.0 mmol/L Blood Urea Nitrogen 24 mg/dl Creatinine 4.20 mg/dl Est Creatinine Clear Calc Drug Dose 15.4 ml/min Estimated GFR () 11.6 Estimated GFR (Non- 10.0 BUN/Creatinine Ratio 5.7 Random Glucose 85 mg/dl Calcium Level 8.8 mg/dl Test 12/09/16 11:22 Bedside Glucose 82 mg/dl Assessment and Plan 1 sepsis secondary to UTI or pneumonia: improving, On IV impenem. Mack will be in her system throughout the weekend. 2 COPD exacerbation - duonebs. 3. New onset A fib: On oral amiodarone. rate now stable. 4. ESRD on HD: stable. 5. Encephalopathy: Has essentially resolved. 6 Hypothyroid: cont synthroid. 7 Anemia: continue to monitor. DVT prophylaxis: heparin Continue IV antibiotic through the weekend and have dialysis here on Sunday.
[2016-12-09] MEDS: ESCITALOPRAM OXALATE 10 MG TAB PO SCH (20:48)
[2016-12-09] MEDS: ATORVASTATIN 20 MG TAB PO SCH (20:48)
[2016-12-10] VITALS (8 sets, daily range): BP systolic 111–197; BP diastolic 40–73; PULSE 70–81; TEMP 36.4–36.9; O2SAT 92–95
[2016-12-10] MEDS: IMIPENEM/CILASTATIN IV 500 MG in DEXTROSE 5% 100ML 100 ML IV SCH ×2 (01:30→13:57)
[2016-12-10] MEDS: LEVOTHYROXINE 75 MCG TAB PO SCH (05:46)
[2016-12-10 07:21] LABS: BUN/CREATININE RATIO 5.6 (10-20); CALCIUM 8.7 mg/dl (8.5-10.1); CREATININE 5.4 mg/dl (0.60-1.20); POTASSIUM 3.9 mmol/L (3.5-5.1)
[2016-12-10] MEDS: ALBUT/IPRATROP 3MG/0.5MG NEB 3 ML VIAL INH SCH ×5 (07:27→20:00)
--- NOTE | 2016-12-10 09:14 | Pharmacy Progress Note ---
Glycemic: Assessment & Plan Date of Service Dec 10, 2016. Assessment & Plan The patient is currently receiving 0 units of insulin per day the past 3 days. BSGs ranging 78 - 144 mg/dl over the past 72 hours. Patient remains on IV Imipenem for sepsis secondary to UTI or pneumonia. COPD Exacerbation, New onset AFib, ESRD on HD, HD again on Sunday. Test 12/09/16 11:22 12/09/16 16:31 12/09/16 19:32 12/10/16 06:17 Bedside Glucose 82 mg/dl (70-90) 91 mg/dl (70-90) 106 mg/dl (70-90) Random Glucose 79 mg/dl (70-99) Test 12/10/16 07:29 Bedside Glucose 92 mg/dl (70-90) PLAN: * Discontinue Lantus (pt not requiring) * Correctional Insulin: Novolog Correction per scale - decrease to BID Accuchecks (pt not requiring insulin at this time) Goal Range: Low 140 mg/dL - High 180 mg/dL Correction Factor: 25 mg/dL/unit * Prandial insulin: Per carb ratio of 1 unit per 15 grams CHO consumed Pharmacy will continue to monitor patient daily and write orders per [facility] inpatient glycemic control protocol. Thanks. * Please note that the plan above was derived based on current level of insulin resistance and hospital stress. These recommendations are appropriate for inpatient admission only. Plan of care upon discharge will need to be reassessed to avoid potential outpatient hypo/hyperglycemia.
[2016-12-10] MEDS: AMIODARONE 200 MG TAB PO SCH ×2 (09:33→20:42)
[2016-12-10] MEDS: PANTOprazole SOD 40 MG TAB PO SCH (09:33)
[2016-12-10] MEDS: GUAIFENESIN 600 MG TABCR PO SCH ×2 (09:33→20:42)
[2016-12-10] MEDS: ASPIRIN 81 MG ECTAB PO SCH (09:34)
[2016-12-10] MEDS: CLOPIDOGREL BISULFATE 75 MG TAB PO SCH (09:34)
[2016-12-10] MEDS: MODAFINIL 100 MG TAB PO SCH (09:34)
[2016-12-10] MEDS: METOPROLOL SUCC 25MG EXT REL TAB PO SCH ×2 (09:34→20:42)
[2016-12-10] MEDS: HEPARIN SOD 5000 UNIT/0.5 ML CARP SQ SCH ×2 (09:35→20:47)
--- NOTE | 2016-12-10 18:28 | Hospitalist Progress Note ---
Hospitalist Progress Note Date of Service Dec 10, 2016. Subjective Pt evaluation today including: conversation w/ patient, physical exam, chart review, lab review, review of studies, review of inpatient medication list The patient feels the same as yesterday. Nursing felt she was a bit more sleepy today. Additional Comments: A 10 system review was performed and all were negative. Positives were placed in the subjective section. Objective Vital Signs Date Time Temp Pulse Resp B/P Pulse Ox O2 Delivery O2 Flow Rate FiO2 12/10/16 15:32 77 16 92 Room Air 12/10/16 15:28 36.9 73 20 111/73 93 Room Air 12/10/16 08:00 95 Nasal Cannula 2.0 12/10/16 07:58 36.7 79 20 169/62 95 Nasal Cannula 2.0 12/10/16 07:34 70 16 93 Room Air 12/10/16 00:07 Nasal Cannula 2.0 12/09/16 23:00 37.0 81 18 145/70 98 Room Air 12/09/16 20:00 74 148/56 12/09/16 20:00 Nasal Cannula 2.0 12/09/16 19:51 74 16 94 Room Air Physical Exam Notes: GEN: Awake, alert, oriented to person and place. Not in acute distress HEENT: Tm's intact, no inflammation, EOMI, PERRLA, MMM Neck: Soft, supple Lungs: CTA b/l, no r/r/w Heart: REG, nrl S1S2 without murmurs, rubs or gallops Abdomen: Soft, NT, ND, + BS EXT: No C/C + lower extremity edema. NEURO: CN's II-XII grossly intact, non-focal Skin: warm, dry, no rashes PSYCH: pleasant, no agitation. Laboratory Results Last 24 Hours Test 12/09/16 19:32 12/10/16 06:17 12/10/16 07:29 12/10/16 11:17 Bedside Glucose 106 mg/dl 92 mg/dl 93 mg/dl Sodium Level 139 mmol/L Potassium Level 3.9 mmol/L Chloride Level 98 mmol/L Carbon Dioxide Level 29 mmol/L Anion Gap 12.0 mmol/L Blood Urea Nitrogen 30 mg/dl Creatinine 5.40 mg/dl Est Creatinine Clear Calc Drug Dose 12.1 ml/min Estimated GFR () 8.5 Estimated GFR (Non- 7.4 BUN/Creatinine Ratio 5.6 Random Glucose 79 mg/dl Calcium Level 8.7 mg/dl Test 12/10/16 16:18 Bedside Glucose 83 mg/dl Assessment and Plan 1 sepsis secondary to UTI or pneumonia: improving, On IV impenem. Mack will be in her system throughout the weekend. 2 COPD exacerbation - duonebs. 3. New onset A fib: On oral amiodarone. rate now stable. 4. ESRD on HD: stable. 5. Encephalopathy: Has essentially resolved. 6 Hypothyroid: cont synthroid. 7 Anemia: continue to monitor. DVT prophylaxis: heparin Continue IV antibiotic through the weekend and have dialysis here tomorrow. Will ask ID for further advice on antibiotics and length of such on Sunday.
[2016-12-10] MEDS: INSULIN ASPART 100 UNITS/ML 3 ML PEN SC SCH (20:21)
[2016-12-10] MEDS: ESCITALOPRAM OXALATE 10 MG TAB PO SCH (20:42)
[2016-12-10] MEDS: ATORVASTATIN 20 MG TAB PO SCH (20:43)
[2016-12-11] VITALS (20 sets, daily range): BP systolic 60–195; BP diastolic 30–97; PULSE 67–87; TEMP 36.6–37.1; O2SAT 95–98
[2016-12-11] MEDS: IMIPENEM/CILASTATIN IV 500 MG in DEXTROSE 5% 100ML 100 ML IV SCH ×2 (02:08→13:57)
[2016-12-11] MEDS: LEVOTHYROXINE 75 MCG TAB PO SCH (05:46)
[2016-12-11 06:23] LABS: BASO % 0.6 %; BASO ABS # 0.04 K/uL (0-0.2); COMPLETE YES; EOS % 3.4 %; HEMATOCRIT 30.6 % (37-47); IG% 0.3 %; LYMPH % 12.2 %; LYMPH ABS # 0.82 K/uL (1.2-3.4); MEAN CORPUSCULAR HEMOGLOBIN 30.7 pg (25-34); MEAN PLATELET VOLUME 11.9 fL (7.4-10.4); MONO % 6.5 %; PLATELET COUNT 170 K/uL (130-400); RED BLOOD COUNT 3.09 M/uL (4.2-5.4); WHITE BLOOD COUNT 6.74 K/uL (4.8-10.8)
[2016-12-11 07:12] LABS: BUN/CREATININE RATIO 5.7 (10-20); CALCIUM 8.5 mg/dl (8.5-10.1); CREATININE 6.7 mg/dl (0.60-1.20); POTASSIUM 4.1 mmol/L (3.5-5.1)
[2016-12-11] MEDS: ASPIRIN 81 MG ECTAB PO SCH (07:47)
[2016-12-11] MEDS: CLOPIDOGREL BISULFATE 75 MG TAB PO SCH (07:47)
[2016-12-11] MEDS: GUAIFENESIN 600 MG TABCR PO SCH ×2 (07:47→20:45)
[2016-12-11] MEDS: ALBUT/IPRATROP 3MG/0.5MG NEB 3 ML VIAL INH SCH ×3 (07:49→20:06)
[2016-12-11] MEDS: PANTOprazole SOD 40 MG TAB PO SCH (07:50)
[2016-12-11] MEDS ORDERED: HEPARIN SOD (PORCINE) 1000 UNIT/ML 10 ML VIAL IV SCH (08:00)
[2016-12-11] MEDS ORDERED: EPOETIN ALFA 10,000 UNITS/ML VIAL IV. SCH (08:00)
--- NOTE | 2016-12-11 08:13 | Nephrology Progress Note ---
Nephrology Progress Note Date of Service: Dec 11, 2016. Subjective restless this am; c/o pain in L 3rd digit else none. pt has trouble giving much hx. denies other musculoskeletal or chest pain or dyspnea. no cough today. nurse notes very little po intake > pt states just no appetite Objective Date Time Temp Pulse Resp B/P Pulse Ox O2 Delivery O2 Flow Rate FiO2 12/11/16 06:55 36.6 74 20 169/51 98 Nasal Cannula 2.0 12/11/16 00:10 Nasal Cannula 2.0 12/10/16 23:57 70 150/48 12/10/16 23:42 36.4 81 18 197/40 92 Room Air 12/10/16 20:39 76 149/47 12/10/16 20:00 Room Air 12/10/16 16:00 Room Air 12/10/16 15:32 77 16 92 Room Air 12/10/16 15:28 36.9 73 20 111/73 93 Room Air Physical Exam: General-alert, interactive, appropriate; on RA, no cough today Eyes-no scleral icterus ENT-mmm Neck-supple Lungs-very diminished air entry; no resp distress Heart-regular Abdomen-bs+ s/nt/nd Extremities-no edema, L AVF Neuro-axial tremors, trouble w/ hx today else normal MS Current Inpatient Medications Medications (Trade) Dose Ordered Sig/Gelacio Route Start Time Stop Time Status Last Admin Dose Admin Glucose (Glucose 40% Gel) 15-30 GRAMS 15 GRAMS... UD PRN PO 12/01/16 14:15 12/31/16 14:14 Glucose (Glucose Chew Tab) 4-8 Tablets 4 Tabl... UD PRN PO 12/01/16 14:15 12/31/16 14:14 Dextrose (Dextrose 50% 50ML Syringe) 25-50ML OF 50% DW IV FOR... UD PRN IV 12/01/16 14:15 12/31/16 14:14 12/04/16 08:16 50 ML Glucagon (Glucagon Inj) 1 mg UD PRN SQ 12/01/16 14:15 12/31/16 14:14 Miscellaneous Information (Consult Glycemic Management Pharmacy) 1 ea UD N/A 12/01/16 14:34 12/31/16 14:33 Acetaminophen (Tylenol Tab) 650 mg Q4H PRN PO 12/01/16 14:15 12/31/16 14:14 12/06/16 19:29 650 MG Nitroglycerin (Nitrostat Tab) 0.4 mg UD PRN SL 12/01/16 14:15 12/31/16 14:14 Albuterol/ Ipratropium (Duoneb) 3 ml QIDR INH 12/01/16 16:00 12/31/16 15:59 12/10/16 15:32 3 ML Aspirin (Ecotrin Tab) 81 mg DAILY PO 12/02/16 09:00 01/01/17 08:59 12/11/16 07:47 81 MG Atorvastatin Calcium (Lipitor Tab) 40 mg HS PO 12/01/16 21:00 12/31/16 20:59 12/10/16 20:43 40 MG Clopidogrel Bisulfate (plAVix TAB) 75 mg DAILY PO 12/02/16 09:00 01/01/17 08:59 12/11/16 07:47 75 MG Escitalopram Oxalate (Lexapro Tab) 10 mg HS PO 12/01/16 21:00 12/31/16 20:59 12/10/16 20:42 10 MG Guaifenesin (Mucinex Contr Rel Tab) 600 mg Q12 PO 12/01/16 21:00 12/31/16 20:59 12/11/16 07:47 600 MG Levothyroxine Sodium (Synthroid Tab) 75 mcg DAILYBB PO 12/02/16 06:00 01/01/17 05:59 12/11/16 05:46 75 MCG Albuterol/ Ipratropium (Duoneb) 3 ml Q2R PRN INH 12/01/16 14:45 12/31/16 14:44 Acetaminophen (Ofirmev Iv) 1,000 mg Q8H PRN IV 12/02/16 16:30 01/01/17 16:29 12/02/16 16:35 1,000 MG Heparin Sodium (Porcine) (Heparin Sq 5000 Unit/0.5ml) 5,000 unit Q12 SQ 12/03/16 21:00 01/02/17 20:59 12/10/16 20:47 5,000 UNIT Metoprolol Tartrate 5 mg 5 mg Q4 PRN IV 12/03/16 12:15 01/02/17 12:14 Imipenem/ Cilastatin Sodium/ Dextrose (Primaxin Iv/D5 100ml) 110 ml @ 100 mls/hr Q12H IV 12/04/16 14:00 12/14/16 13:59 12/11/16 02:08 100 MLS/HR Imipenem/ Cilastatin Sodium (Consult) 1 ea UD PRN N/A 12/04/16 10:30 01/03/17 10:29 Modafinil (proVIGIL TAB) 100 mg QAM PO 12/05/16 09:00 01/04/17 08:59 12/10/16 09:34 100 MG Miconazole Nitrate (Desenex Powder) 1 appln BID PRN EXT 12/06/16 13:00 01/05/17 12:59 Pantoprazole Sodium (Protonix Tab) 40 mg DAILY PO 12/07/16 09:00 01/06/17 08:59 12/11/16 07:50 40 MG Amiodarone HCl (Cordarone Tab) 200 mg BID PO 12/07/16 21:00 01/06/17 20:59 12/10/16 20:42 200 MG Metoprolol Succinate (Toprol Xl Tab) 12.5 mg BID PO 12/07/16 21:00 01/06/17 20:59 12/10/16 20:42 12.5 MG Insulin Aspart (novoLOG ASPART) SLIDING SCALE If C... BID SC 12/10/16 21:00 01/09/17 20:59 Heparin Sodium (Porcine) (Heparin Iv Bolus) 400 unit Q1H IV 12/11/16 08:00 12/11/16 10:01 Epoetin Sammy (Procrit Inj) 10,000 units 0800 IV. 12/11/16 08:00 12/11/16 16:00 Last 24 Hours Test 12/10/16 11:17 12/10/16 16:18 12/10/16 20:15 12/11/16 05:53 Bedside Glucose 93 mg/dl 83 mg/dl 108 mg/dl White Blood Count 6.74 K/uL Red Blood Count 3.09 M/uL Hemoglobin 9.5 g/dL Hematocrit 30.6 % Mean Corpuscular Volume 99.0 fL Mean Corpuscular Hemoglobin 30.7 pg Mean Corpuscular Hemoglobin Concent 31.0 g/dl Platelet Count 170 K/uL Mean Platelet Volume 11.9 fL Neutrophils (%) (Auto) 77.0 % Lymphocytes (%) (Auto) 12.2 % Monocytes (%) (Auto) 6.5 % Eosinophils (%) (Auto) 3.4 % Basophils (%) (Auto) 0.6 % Neutrophils # (Auto) 5.19 K/uL Lymphocytes # (Auto) 0.82 K/uL Monocytes # (Auto) 0.44 K/uL Eosinophils # (Auto) 0.23 K/uL Basophils # (Auto) 0.04 K/uL RDW Standard Deviation 63.8 fL RDW Coefficient of Variation 17.6 % Immature Granulocyte % (Auto) 0.3 % Immature Granulocyte # (Auto) 0.02 K/uL Sodium Level 137 mmol/L Potassium Level 4.1 mmol/L Chloride Level 98 mmol/L Carbon Dioxide Level 27 mmol/L Anion Gap 12.0 mmol/L Blood Urea Nitrogen 38 mg/dl Creatinine 6.70 mg/dl Est Creatinine Clear Calc Drug Dose 9.7 ml/min Estimated GFR () 6.6 Estimated GFR (Non- 5.7 BUN/Creatinine Ratio 5.7 Random Glucose 70 mg/dl Calcium Level 8.5 mg/dl Test 12/11/16 06:53 Bedside Glucose 81 mg/dl Assessment & Plan 71 yo female with sepsis and encephalopathy with possibly from PNA who initially required pressors, bipap, warming blanket. pt is much better now and floor status. has underlying dementia at baseline. slow clinical improvement. ESRD- -unable to remove fluid at last tx despite albumin -for dialysis today and will try to remove 2 liters as bp tolerates. continue m- w-f dialysis schedule Anemia of Renal Failure-hg 9.5 and will continue procrit on dialysis to help keep hg between 10 to 11. multifactorial sepsis > bibasilar pna, possible aspiration; also 1 blood cx w/ micrococcus; pseudomonas in urine of HD pt >> ID following/ managing abtx and follow up studies; no evidence these relate to dialysis appreciate consult; will follow with you
[2016-12-11] MEDS: INSULIN ASPART 100 UNITS/ML 3 ML PEN SC SCH ×2 (09:00→17:43)
[2016-12-11] MEDS: AMIODARONE 200 MG TAB PO SCH ×2 (09:00→20:47)
[2016-12-11] MEDS: METOPROLOL SUCC 25MG EXT REL TAB PO SCH ×2 (09:00→20:46)
[2016-12-11] MEDS: MODAFINIL 100 MG TAB PO SCH (10:15)
[2016-12-11] MEDS: HEPARIN SOD 5000 UNIT/0.5 ML CARP SQ SCH ×2 (10:17→20:51)
[2016-12-11] MEDS: HEPARIN SOD (PORCINE) 1000 UNIT/ML 10 ML VIAL IV SCH ×3 (10:30→12:30)
--- NOTE | 2016-12-11 11:41 | Infectious Disease Progress Nt ---
Progress Note Date of Service Dec 11, 2016. Subjective Pt evaluation today including: conversation w/ patient, physical exam, chart review, lab review, review of studies, conversation w/ office 365 consultant (Dr. Silveira), review of inpatient medication list WBC count today was 6.74. WBC count today was 6.70. Repeat blood cultures continue to show no growth. All Other Systems: Reviewed and Negative Medications Current Inpatient Medications Medications (Trade) Dose Ordered Sig/Gelacio Route Start Time Stop Time Status Last Admin Dose Admin Glucose (Glucose 40% Gel) 15-30 GRAMS 15 GRAMS... UD PRN PO 12/01/16 14:15 12/31/16 14:14 Glucose (Glucose Chew Tab) 4-8 Tablets 4 Tabl... UD PRN PO 12/01/16 14:15 12/31/16 14:14 Dextrose (Dextrose 50% 50ML Syringe) 25-50ML OF 50% DW IV FOR... UD PRN IV 12/01/16 14:15 12/31/16 14:14 12/04/16 08:16 50 ML Glucagon (Glucagon Inj) 1 mg UD PRN SQ 12/01/16 14:15 12/31/16 14:14 Miscellaneous Information (Consult Glycemic Management Pharmacy) 1 ea UD N/A 12/01/16 14:34 12/31/16 14:33 Acetaminophen (Tylenol Tab) 650 mg Q4H PRN PO 12/01/16 14:15 12/31/16 14:14 12/06/16 19:29 650 MG Nitroglycerin (Nitrostat Tab) 0.4 mg UD PRN SL 12/01/16 14:15 12/31/16 14:14 Albuterol/ Ipratropium (Duoneb) 3 ml QIDR INH 12/01/16 16:00 12/31/16 15:59 12/10/16 15:32 3 ML Aspirin (Ecotrin Tab) 81 mg DAILY PO 12/02/16 09:00 01/01/17 08:59 12/11/16 07:47 81 MG Atorvastatin Calcium (Lipitor Tab) 40 mg HS PO 12/01/16 21:00 12/31/16 20:59 12/10/16 20:43 40 MG Clopidogrel Bisulfate (plAVix TAB) 75 mg DAILY PO 12/02/16 09:00 01/01/17 08:59 12/11/16 07:47 75 MG Escitalopram Oxalate (Lexapro Tab) 10 mg HS PO 12/01/16 21:00 12/31/16 20:59 12/10/16 20:42 10 MG Guaifenesin (Mucinex Contr Rel Tab) 600 mg Q12 PO 12/01/16 21:00 12/31/16 20:59 12/11/16 07:47 600 MG Levothyroxine Sodium (Synthroid Tab) 75 mcg DAILYBB PO 12/02/16 06:00 01/01/17 05:59 12/11/16 05:46 75 MCG Albuterol/ Ipratropium (Duoneb) 3 ml Q2R PRN INH 12/01/16 14:45 12/31/16 14:44 Acetaminophen (Ofirmev Iv) 1,000 mg Q8H PRN IV 12/02/16 16:30 01/01/17 16:29 12/02/16 16:35 1,000 MG Heparin Sodium (Porcine) (Heparin Sq 5000 Unit/0.5ml) 5,000 unit Q12 SQ 12/03/16 21:00 01/02/17 20:59 12/11/16 10:17 5,000 UNIT Metoprolol Tartrate 5 mg 5 mg Q4 PRN IV 12/03/16 12:15 01/02/17 12:14 Imipenem/ Cilastatin Sodium/ Dextrose (Primaxin Iv/D5 100ml) 110 ml @ 100 mls/hr Q12H IV 12/04/16 14:00 12/14/16 13:59 12/11/16 02:08 100 MLS/HR Imipenem/ Cilastatin Sodium (Consult) 1 ea UD PRN N/A 12/04/16 10:30 01/03/17 10:29 Modafinil (proVIGIL TAB) 100 mg QAM PO 12/05/16 09:00 01/04/17 08:59 12/11/16 10:15 100 MG Miconazole Nitrate (Desenex Powder) 1 appln BID PRN EXT 12/06/16 13:00 01/05/17 12:59 Pantoprazole Sodium (Protonix Tab) 40 mg DAILY PO 12/07/16 09:00 01/06/17 08:59 12/11/16 07:50 40 MG Amiodarone HCl (Cordarone Tab) 200 mg BID PO 12/07/16 21:00 01/06/17 20:59 12/10/16 20:42 200 MG Metoprolol Succinate (Toprol Xl Tab) 12.5 mg BID PO 12/07/16 21:00 01/06/17 20:59 12/10/16 20:42 12.5 MG Insulin Aspart (novoLOG ASPART) SLIDING SCALE If C... BID SC 12/10/16 21:00 01/09/17 20:59 Heparin Sodium (Porcine) (Heparin Iv Bolus) 400 unit Q1H IV 12/11/16 08:00 12/11/16 10:01 Epoetin Sammy (Procrit Inj) 10,000 units 0800 IV. 12/11/16 08:00 12/11/16 16:00 12/11/16 11:31 10,000 UNITS Objective Vital Signs Date Time Temp Pulse Resp B/P Pulse Ox O2 Delivery O2 Flow Rate FiO2 12/11/16 11:15 71 124/46 12/11/16 11:00 70 107/45 12/11/16 10:45 71 133/43 12/11/16 10:30 87 117/90 12/11/16 10:15 71 135/60 12/11/16 10:00 68 177/70 12/11/16 09:45 68 179/63 12/11/16 09:37 37.1 69 162/55 12/11/16 09:30 67 195/97 12/11/16 08:00 Nasal Cannula 2.0 12/11/16 06:55 36.6 74 20 169/51 98 Nasal Cannula 2.0 12/11/16 00:10 Nasal Cannula 2.0 12/10/16 23:57 70 150/48 12/10/16 23:42 36.4 81 18 197/40 92 Room Air 12/10/16 20:39 76 149/47 12/10/16 20:00 Room Air 12/10/16 16:00 Room Air 12/10/16 15:32 77 16 92 Room Air 12/10/16 15:28 36.9 73 20 111/73 93 Room Air Physical Exam General Appearance: no apparent distress, + obese Eyes: normal inspection, sclerae normal ENT: hearing grossly normal Neck: supple, trachea midline Respiratory/Chest: chest non-tender, no respiratory distress, no accessory muscle use, + crackles (very mild right middle lobe) Cardiovascular: regular rate, rhythm Abdomen: normal bowel sounds, non tender, soft 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: alert Skin: normal color, warm/dry, no rash Laboratory Results Item Value Date Time Blood Culture - Preliminary Resulted 12/06/16 1145 Blood NO GROWTH TO DATE. Blood Culture - Preliminary Resulted 12/06/16 1110 Blood NO GROWTH TO DATE. Last 24 Hours Test 12/10/16 16:18 12/10/16 20:15 12/11/16 05:53 12/11/16 06:53 Bedside Glucose 83 mg/dl 108 mg/dl 81 mg/dl White Blood Count 6.74 K/uL Red Blood Count 3.09 M/uL Hemoglobin 9.5 g/dL Hematocrit 30.6 % Mean Corpuscular Volume 99.0 fL Mean Corpuscular Hemoglobin 30.7 pg Mean Corpuscular Hemoglobin Concent 31.0 g/dl Platelet Count 170 K/uL Mean Platelet Volume 11.9 fL Neutrophils (%) (Auto) 77.0 % Lymphocytes (%) (Auto) 12.2 % Monocytes (%) (Auto) 6.5 % Eosinophils (%) (Auto) 3.4 % Basophils (%) (Auto) 0.6 % Neutrophils # (Auto) 5.19 K/uL Lymphocytes # (Auto) 0.82 K/uL Monocytes # (Auto) 0.44 K/uL Eosinophils # (Auto) 0.23 K/uL Basophils # (Auto) 0.04 K/uL RDW Standard Deviation 63.8 fL RDW Coefficient of Variation 17.6 % Immature Granulocyte % (Auto) 0.3 % Immature Granulocyte # (Auto) 0.02 K/uL Sodium Level 137 mmol/L Potassium Level 4.1 mmol/L Chloride Level 98 mmol/L Carbon Dioxide Level 27 mmol/L Anion Gap 12.0 mmol/L Blood Urea Nitrogen 38 mg/dl Creatinine 6.70 mg/dl Est Creatinine Clear Calc Drug Dose 9.7 ml/min Estimated GFR () 6.6 Estimated GFR (Non- 5.7 BUN/Creatinine Ratio 5.7 Random Glucose 70 mg/dl Calcium Level 8.5 mg/dl Test 12/11/16 11:05 Bedside Glucose 100 mg/dl Assessment and Plan (1) Septic shock Status: Acute (2) End-stage renal disease on hemodialysis Status: Chronic (3) Diabetes mellitus type 2 in obese Status: Chronic Patient with probable bibasilar pneumonia, possibly aspiration pna with encephalopathy, sepsis, and Pseudomonas UTI. She has completed 7 days of IV Imipenem and 10 days of IV Vancomycin. Her repeat CXR showed increased opacities , but she appears to be improving. Likely this patient has completed a sufficient amount of antibiotic therapy for her pneumonia. Once medically cleared, she is OK for D/C from ID perspective. She should follow up with us as an outpatient. Thanks PROVIDER ADDENDUM: Pt. reviewed with Ms. Blackwell. Agree with above assessment.
--- NOTE | 2016-12-11 16:16 | Hospitalist Progress Note ---
Hospitalist Progress Note Date of Service Dec 11, 2016. Subjective Pt evaluation today including: conversation w/ patient, physical exam, chart review, lab review, review of studies, review of inpatient medication list Patient had no acute issues overnight Per nursing she has had poor po intake Patient states she has no appetite, denies nausea or vomiting Constitutional: No fever Eyes: No worsening of vision ENT: No hearing loss Respiratory: No cough Cardiovascular: No chest pain Abdomen: No pain Musculoskeletal: No joint pain Endo: No fatigue Skin: No rash Medications Current Inpatient Medications Medications (Trade) Dose Ordered Sig/Gelacio Route Start Time Stop Time Status Last Admin Dose Admin Glucose (Glucose 40% Gel) 15-30 GRAMS 15 GRAMS... UD PRN PO 12/01/16 14:15 12/31/16 14:14 Glucose (Glucose Chew Tab) 4-8 Tablets 4 Tabl... UD PRN PO 12/01/16 14:15 12/31/16 14:14 Dextrose (Dextrose 50% 50ML Syringe) 25-50ML OF 50% DW IV FOR... UD PRN IV 12/01/16 14:15 12/31/16 14:14 12/04/16 08:16 50 ML Glucagon (Glucagon Inj) 1 mg UD PRN SQ 12/01/16 14:15 12/31/16 14:14 Miscellaneous Information (Consult Glycemic Management Pharmacy) 1 ea UD N/A 12/01/16 14:34 12/31/16 14:33 Acetaminophen (Tylenol Tab) 650 mg Q4H PRN PO 12/01/16 14:15 12/31/16 14:14 12/06/16 19:29 650 MG Nitroglycerin (Nitrostat Tab) 0.4 mg UD PRN SL 12/01/16 14:15 12/31/16 14:14 Albuterol/ Ipratropium (Duoneb) 3 ml QIDR INH 12/01/16 16:00 12/31/16 15:59 12/10/16 15:32 3 ML Aspirin (Ecotrin Tab) 81 mg DAILY PO 12/02/16 09:00 01/01/17 08:59 12/11/16 07:47 81 MG Atorvastatin Calcium (Lipitor Tab) 40 mg HS PO 12/01/16 21:00 12/31/16 20:59 12/10/16 20:43 40 MG Clopidogrel Bisulfate (plAVix TAB) 75 mg DAILY PO 12/02/16 09:00 01/01/17 08:59 12/11/16 07:47 75 MG Escitalopram Oxalate (Lexapro Tab) 10 mg HS PO 12/01/16 21:00 12/31/16 20:59 12/10/16 20:42 10 MG Guaifenesin (Mucinex Contr Rel Tab) 600 mg Q12 PO 12/01/16 21:00 12/31/16 20:59 12/11/16 07:47 600 MG Levothyroxine Sodium (Synthroid Tab) 75 mcg DAILYBB PO 12/02/16 06:00 01/01/17 05:59 12/11/16 05:46 75 MCG Albuterol/ Ipratropium (Duoneb) 3 ml Q2R PRN INH 12/01/16 14:45 12/31/16 14:44 Acetaminophen (Ofirmev Iv) 1,000 mg Q8H PRN IV 12/02/16 16:30 01/01/17 16:29 12/02/16 16:35 1,000 MG Heparin Sodium (Porcine) (Heparin Sq 5000 Unit/0.5ml) 5,000 unit Q12 SQ 12/03/16 21:00 01/02/17 20:59 12/11/16 10:17 5,000 UNIT Metoprolol Tartrate 5 mg 5 mg Q4 PRN IV 12/03/16 12:15 01/02/17 12:14 Imipenem/ Cilastatin Sodium/ Dextrose (Primaxin Iv/D5 100ml) 110 ml @ 100 mls/hr Q12H IV 12/04/16 14:00 12/14/16 13:59 12/11/16 13:57 100 MLS/HR Imipenem/ Cilastatin Sodium (Consult) 1 ea UD PRN N/A 12/04/16 10:30 01/03/17 10:29 Modafinil (proVIGIL TAB) 100 mg QAM PO 12/05/16 09:00 01/04/17 08:59 12/11/16 10:15 100 MG Miconazole Nitrate (Desenex Powder) 1 appln BID PRN EXT 12/06/16 13:00 01/05/17 12:59 Pantoprazole Sodium (Protonix Tab) 40 mg DAILY PO 12/07/16 09:00 01/06/17 08:59 12/11/16 07:50 40 MG Amiodarone HCl (Cordarone Tab) 200 mg BID PO 12/07/16 21:00 01/06/17 20:59 12/10/16 20:42 200 MG Metoprolol Succinate (Toprol Xl Tab) 12.5 mg BID PO 12/07/16 21:00 01/06/17 20:59 12/10/16 20:42 12.5 MG Insulin Aspart (novoLOG ASPART) SLIDING SCALE If C... BIDM SC 12/11/16 17:00 01/10/17 16:59 Objective Vital Signs Date Time Temp Pulse Resp B/P Pulse Ox O2 Delivery O2 Flow Rate FiO2 12/11/16 14:53 36.8 72 24 144/55 98 12/11/16 13:30 36.7 71 134/36 12/11/16 12:46 72 60/43 12/11/16 12:30 72 112/41 12/11/16 12:15 71 102/30 12/11/16 12:00 68 122/35 12/11/16 11:45 71 106/40 12/11/16 11:30 74 112/45 12/11/16 11:15 71 124/46 12/11/16 11:00 70 107/45 12/11/16 10:45 71 133/43 12/11/16 10:30 87 117/90 12/11/16 10:15 71 135/60 12/11/16 10:00 68 177/70 12/11/16 09:45 68 179/63 12/11/16 09:37 37.1 69 162/55 12/11/16 09:30 67 195/97 12/11/16 08:00 Nasal Cannula 2.0 12/11/16 06:55 36.6 74 20 169/51 98 Nasal Cannula 2.0 12/11/16 00:10 Nasal Cannula 2.0 12/10/16 23:57 70 150/48 12/10/16 23:42 36.4 81 18 197/40 92 Room Air 12/10/16 20:39 76 149/47 12/10/16 20:00 Room Air Physical Exam General Appearance: WD/WN Eyes: normal inspection ENT: normal ENT inspection Neck: supple Respiratory/Chest: chest non-tender, + respiratory distress Cardiovascular: regular rate, rhythm, no edema Abdomen: normal bowel sounds, non tender, soft Extremities: normal range of motion 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: 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, no motor/sensory deficits, alert, oriented x 3 Skin: normal color, warm/dry, no rash Lymphatic: no adenopathy Laboratory Results Last 24 Hours Test 12/10/16 16:18 12/10/16 20:15 12/11/16 05:53 12/11/16 06:53 Bedside Glucose 83 mg/dl 108 mg/dl 81 mg/dl White Blood Count 6.74 K/uL Red Blood Count 3.09 M/uL Hemoglobin 9.5 g/dL Hematocrit 30.6 % Mean Corpuscular Volume 99.0 fL Mean Corpuscular Hemoglobin 30.7 pg Mean Corpuscular Hemoglobin Concent 31.0 g/dl Platelet Count 170 K/uL Mean Platelet Volume 11.9 fL Neutrophils (%) (Auto) 77.0 % Lymphocytes (%) (Auto) 12.2 % Monocytes (%) (Auto) 6.5 % Eosinophils (%) (Auto) 3.4 % Basophils (%) (Auto) 0.6 % Neutrophils # (Auto) 5.19 K/uL Lymphocytes # (Auto) 0.82 K/uL Monocytes # (Auto) 0.44 K/uL Eosinophils # (Auto) 0.23 K/uL Basophils # (Auto) 0.04 K/uL RDW Standard Deviation 63.8 fL RDW Coefficient of Variation 17.6 % Immature Granulocyte % (Auto) 0.3 % Immature Granulocyte # (Auto) 0.02 K/uL Sodium Level 137 mmol/L Potassium Level 4.1 mmol/L Chloride Level 98 mmol/L Carbon Dioxide Level 27 mmol/L Anion Gap 12.0 mmol/L Blood Urea Nitrogen 38 mg/dl Creatinine 6.70 mg/dl Est Creatinine Clear Calc Drug Dose 9.7 ml/min Estimated GFR () 6.6 Estimated GFR (Non- 5.7 BUN/Creatinine Ratio 5.7 Random Glucose 70 mg/dl Calcium Level 8.5 mg/dl Test 12/11/16 11:05 Bedside Glucose 100 mg/dl Assessment and Plan UTI with sepsis - appreciate infectious disease input - patient completed 7 days of imipenem and 10 days of vancomycin - per I/D appropriate treatment - follow up I/D Pseudomonas Pneumonia - see above COPD - duonebs New onset afibb - cont metoprolol and amiodarone - appreciate cardiology input - patient not a candidate for anticoagulation 2/2 to epistaxis and chronic anemia ESRD - euvolemic - on M/W/F dialysis/dialysis today Hypothyroidism - cont Synthroid Anemia - stable PPx - heparin Disposition- plan for discharge [facility] am or the next day. Would like to monitor patient off antibiotics
[2016-12-11] MEDS: DEXTROSE 50% 50 ML SYR IV PRN (20:38)
[2016-12-11] MEDS: ATORVASTATIN 20 MG TAB PO SCH (20:45)
[2016-12-11] MEDS: ESCITALOPRAM OXALATE 10 MG TAB PO SCH (20:48)
[2016-12-12] VITALS: BP 122/63; PULSE 79; TEMP 36.5; O2SAT 94
[2016-12-12] MEDS: LEVOTHYROXINE 75 MCG TAB PO SCH (06:05)
[2016-12-12 06:31] LABS: MEAN CELL VOLUME 98.5 fL (80-100); MEAN CORPUSCULAR HEMOGLOBIN 30.8 pg (25-34); MEAN CORPUSCULAR HGB CONC 31.3 g/dl (32-36); MEAN PLATELET VOLUME 12.1 fL (7.4-10.4); PLATELET COUNT 102 K/uL (130-400); RED BLOOD COUNT 3.25 M/uL (4.2-5.4); WHITE BLOOD COUNT 6.16 K/uL (4.8-10.8)
[2016-12-12 07:12] LABS: BUN/CREATININE RATIO 4.1 (10-20); CALCIUM 8.3 mg/dl (8.5-10.1); CREATININE 4.5 mg/dl (0.60-1.20); POTASSIUM 3.6 mmol/L (3.5-5.1)
[2016-12-12 07:50] VITALS: BP 112/63; PULSE 85; TEMP 36.9; O2SAT 90
[2016-12-12] MEDS: ALBUT/IPRATROP 3MG/0.5MG NEB 3 ML VIAL INH SCH ×4 (07:50→20:00)
[2016-12-12] MEDS: INSULIN ASPART 100 UNITS/ML 3 ML PEN SC SCH ×2 (08:00→16:35)
[2016-12-12] MEDS: GUAIFENESIN 600 MG TABCR PO SCH ×2 (08:20→20:33)
[2016-12-12] MEDS: MODAFINIL 100 MG TAB PO SCH (08:20)
[2016-12-12] MEDS: AMIODARONE 200 MG TAB PO SCH ×2 (08:21→20:33)
[2016-12-12] MEDS: PANTOprazole SOD 40 MG TAB PO SCH (08:21)
[2016-12-12] MEDS: METOPROLOL SUCC 25MG EXT REL TAB PO SCH ×2 (08:21→20:33)
[2016-12-12] MEDS: ASPIRIN 81 MG ECTAB PO SCH (08:22)
[2016-12-12] MEDS: CLOPIDOGREL BISULFATE 75 MG TAB PO SCH (08:23)
[2016-12-12] MEDS: DEXTROSE 50% 50 ML SYR IV PRN ×3 (08:24→20:36)
[2016-12-12] MEDS: HEPARIN SOD 5000 UNIT/0.5 ML CARP SQ SCH ×2 (09:47→20:34)
[2016-12-12 14:50] VITALS: Ht 170.2 cm; Wt 105.8 kg
[2016-12-12 15:06] VITALS: BP_SYST 108; BP_SYST 161; BP_DIAS 51; BP_DIAS 67; PULSE 73; PULSE 89; TEMP 36.7; TEMP 37.2; O2SAT 92; O2SAT 94
[2016-12-12 15:10] VITALS: PULSE 69; O2SAT 95
--- NOTE | 2016-12-12 16:42 | Hospitalist Progress Note ---
Hospitalist Progress Note Date of Service Dec 12, 2016. Subjective Pt evaluation today including: conversation w/ patient, physical exam, chart review, lab review, review of studies, review of inpatient medication list Patient had no acute issues states Constitutional: No fever Eyes: No worsening of vision ENT: No hearing loss Respiratory: No cough Cardiovascular: No chest pain Abdomen: No diarrhea, No pain, No vomiting Musculoskeletal: No joint pain Female : No dysuria Objective Vital Signs Date Time Temp Pulse Resp B/P Pulse Ox O2 Delivery O2 Flow Rate FiO2 12/12/16 16:20 Room Air 12/12/16 15:10 69 16 95 Room Air 12/12/16 15:06 36.7 73 18 161/51 92 Room Air 12/12/16 08:30 Room Air 12/12/16 07:50 36.9 85 20 112/63 90 Room Air 12/12/16 00:00 36.5 79 18 122/63 94 Room Air 12/12/16 00:00 Room Air 12/11/16 20:33 83 124/63 95 12/11/16 20:06 72 16 95 Room Air Physical Exam General Appearance: WD/WN, no apparent distress Eyes: normal inspection ENT: normal ENT inspection, hearing grossly normal Neck: supple Respiratory/Chest: chest non-tender, lungs clear Cardiovascular: regular rate, rhythm, no edema Abdomen: normal bowel sounds, non tender, soft Extremities: normal range of motion 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: 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, no motor/sensory deficits, alert Skin: normal color, warm/dry Laboratory Results Last 24 Hours Test 12/11/16 20:23 12/12/16 05:57 12/12/16 08:49 12/12/16 11:23 Bedside Glucose 70 mg/dl 111 mg/dl 72 mg/dl White Blood Count 6.16 K/uL Red Blood Count 3.25 M/uL Hemoglobin 10.0 g/dL Hematocrit 32.0 % Mean Corpuscular Volume 98.5 fL Mean Corpuscular Hemoglobin 30.8 pg Mean Corpuscular Hemoglobin Concent 31.3 g/dl RDW Standard Deviation 63.4 fL RDW Coefficient of Variation 17.5 % Platelet Count 102 K/uL Mean Platelet Volume 12.1 fL Sodium Level 137 mmol/L Potassium Level 3.6 mmol/L Chloride Level 96 mmol/L Carbon Dioxide Level 28 mmol/L Anion Gap 13.0 mmol/L Blood Urea Nitrogen 18 mg/dl Creatinine 4.50 mg/dl Est Creatinine Clear Calc Drug Dose 14.3 ml/min Estimated GFR () 10.7 Estimated GFR (Non- 9.2 BUN/Creatinine Ratio 4.1 Random Glucose 62 mg/dl Calcium Level 8.3 mg/dl Test 12/12/16 16:28 Bedside Glucose 62 mg/dl Assessment and Plan Psuedamonas UTI with sepsis - appreciate infectious disease input - patient completed 7 days of imipenem and 10 days of vancomycin - antbiotics stopped on 30 - per I/D appropriate treatment - follow up I/D as outpatient prn - will observe 1 more day off antibiotics Micrococcus Bacteremia - see above COPD - duonebs New onset afibb - cont metoprolol and amiodarone - appreciated cardiology input - patient not a candidate for anticoagulation 2/2 to epistaxis and chronic anemia ESRD - euvolemic - on M/W/F dialysis/dialysis today Hypothyroidism - cont Synthroid Anemia - stable PPx - heparin Disposition- plan for discharge back to [facility] in the am. will not need IV antibiotics
[2016-12-12] MEDS: ESCITALOPRAM OXALATE 10 MG TAB PO SCH (20:32)
[2016-12-12] MEDS: ATORVASTATIN 20 MG TAB PO SCH (20:32)
[2016-12-12 23:56] VITALS: BP 164/75; PULSE 69; TEMP 36.8; O2SAT 95
[2016-12-13] VITALS (24 sets, daily range): BP systolic 96–181; BP diastolic 42–79; PULSE 65–76; TEMP 36.7–36.9; O2SAT 95–100
[2016-12-13] MEDS: DEXTROSE 50% 50 ML SYR IV PRN ×2 (02:29→13:19)
[2016-12-13] MEDS: LEVOTHYROXINE 75 MCG TAB PO SCH (05:55)
[2016-12-13] MEDS: ALBUT/IPRATROP 3MG/0.5MG NEB 3 ML VIAL INH SCH ×3 (07:10→14:59)
[2016-12-13] MEDS: INSULIN ASPART 100 UNITS/ML 3 ML PEN SC SCH (08:00)
[2016-12-13] MEDS ORDERED: EPOETIN ALFA INJ 6,000 UNITS in SYRINGE 0 ML IV. SCH (08:00)
[2016-12-13] MEDS ORDERED: HEPARIN SOD (PORCINE) 1000 UNIT/ML 10 ML VIAL IV SCH ×2 (08:00→09:00)
[2016-12-13] MEDS ORDERED: EPOETIN ALFA 10,000 UNITS/ML VIAL IV. ONE (08:00)
--- NOTE | 2016-12-13 09:45 | Dialysis Progress Note ---
Nephrology Dialysis Note Date of Service: Dec 13, 2016. Subjective lower BG this am but improving. no complaints from pt who has trouble giving much hx. denies chest pain or dyspnea, cough Objective Date Time Temp Pulse Resp B/P Pulse Ox O2 Delivery O2 Flow Rate FiO2 12/13/16 09:30 68 125/47 12/13/16 09:15 69 141/69 12/13/16 09:00 69 155/64 12/13/16 08:45 70 181/63 12/13/16 08:44 36.9 163/54 12/13/16 08:30 74 170/67 12/13/16 08:25 75 163/54 12/13/16 08:00 99 Nasal Cannula 2.0 12/13/16 07:58 99 Room Air 12/13/16 07:49 36.7 76 12 157/72 99 Room Air 12/13/16 07:10 68 16 96 Room Air 12/13/16 06:05 95 Room Air 12/12/16 23:56 36.8 69 18 164/75 95 Room Air 12/12/16 16:20 Room Air 12/12/16 15:10 69 16 95 Room Air 12/12/16 15:06 36.7 73 18 161/51 92 Room Air Physical Exam: General-alert, interactive, appropriate; on RA, jokes with me Eyes-no scleral icterus ENT-mmm Neck-supple Lungs-very diminished air entry; no resp distress Heart-regular Abdomen-bs+ s/nt/nd Extremities-no edema, L AVF + t/b Neuro-fewer axial tremors; expected trouble w/ hx today else normal MS Current Inpatient Medications Medications (Trade) Dose Ordered Sig/Gelacio Route Start Time Stop Time Status Last Admin Dose Admin Glucose (Glucose 40% Gel) 15-30 GRAMS 15 GRAMS... UD PRN PO 12/01/16 14:15 12/31/16 14:14 Glucose (Glucose Chew Tab) 4-8 Tablets 4 Tabl... UD PRN PO 12/01/16 14:15 12/31/16 14:14 Dextrose (Dextrose 50% 50ML Syringe) 25-50ML OF 50% DW IV FOR... UD PRN IV 12/01/16 14:15 12/31/16 14:14 12/13/16 02:29 25 ML Glucagon (Glucagon Inj) 1 mg UD PRN SQ 12/01/16 14:15 12/31/16 14:14 Acetaminophen (Tylenol Tab) 650 mg Q4H PRN PO 12/01/16 14:15 12/31/16 14:14 12/06/16 19:29 650 MG Nitroglycerin (Nitrostat Tab) 0.4 mg UD PRN SL 12/01/16 14:15 12/31/16 14:14 Albuterol/ Ipratropium (Duoneb) 3 ml QIDR INH 12/01/16 16:00 12/31/16 15:59 12/13/16 07:10 3 ML Aspirin (Ecotrin Tab) 81 mg DAILY PO 12/02/16 09:00 01/01/17 08:59 12/12/16 08:22 81 MG Atorvastatin Calcium (Lipitor Tab) 40 mg HS PO 12/01/16 21:00 12/31/16 20:59 12/12/16 20:32 40 MG Clopidogrel Bisulfate (plAVix TAB) 75 mg DAILY PO 12/02/16 09:00 01/01/17 08:59 12/12/16 08:23 75 MG Escitalopram Oxalate (Lexapro Tab) 10 mg HS PO 12/01/16 21:00 12/31/16 20:59 12/12/16 20:32 10 MG Guaifenesin (Mucinex Contr Rel Tab) 600 mg Q12 PO 12/01/16 21:00 12/31/16 20:59 12/12/16 20:33 600 MG Levothyroxine Sodium (Synthroid Tab) 75 mcg DAILYBB PO 12/02/16 06:00 01/01/17 05:59 12/13/16 05:55 75 MCG Albuterol/ Ipratropium (Duoneb) 3 ml Q2R PRN INH 12/01/16 14:45 12/31/16 14:44 Acetaminophen (Ofirmev Iv) 1,000 mg Q8H PRN IV 12/02/16 16:30 01/01/17 16:29 12/02/16 16:35 1,000 MG Heparin Sodium (Porcine) (Heparin Sq 5000 Unit/0.5ml) 5,000 unit Q12 SQ 12/03/16 21:00 01/02/17 20:59 12/12/16 20:34 5,000 UNIT Metoprolol Tartrate (Lopressor Iv) 5 mg Q4 PRN IV 12/03/16 12:15 01/02/17 12:14 Modafinil (proVIGIL TAB) 100 mg QAM PO 12/05/16 09:00 01/04/17 08:59 12/12/16 08:20 100 MG Miconazole Nitrate (Desenex Powder) 1 appln BID PRN EXT 12/06/16 13:00 01/05/17 12:59 12/11/16 20:43 1 APPLN Pantoprazole Sodium (Protonix Tab) 40 mg DAILY PO 12/07/16 09:00 01/06/17 08:59 12/12/16 08:21 40 MG Amiodarone HCl (Cordarone Tab) 200 mg BID PO 12/07/16 21:00 01/06/17 20:59 12/12/16 20:33 200 MG Metoprolol Succinate (Toprol Xl Tab) 12.5 mg BID PO 12/07/16 21:00 01/06/17 20:59 12/12/16 20:33 12.5 MG Insulin Aspart (novoLOG ASPART) SLIDING SCALE If C... BIDM SC 12/11/16 17:00 01/10/17 16:59 Heparin Sodium (Porcine) (Heparin Iv Bolus) 1,000 unit TODAY@0800 IV 12/13/16 08:00 12/13/16 16:00 Heparin Sodium (Porcine) 400 unit 400 unit TODAY@0900,1000,1100 IV 12/13/16 09:00 12/13/16 16:00 Epoetin Sammy/ Syringe (Procrit Inj/ Syringe) 0.3 ml @ 1 mls/min TODAY@0800 IV. 12/13/16 08:00 12/13/16 16:00 12/13/16 09:39 1 MLS/MIN Last 24 Hours Test 12/12/16 11:23 12/12/16 16:28 12/12/16 16:51 12/12/16 20:35 Bedside Glucose 72 mg/dl 62 mg/dl 110 mg/dl 62 mg/dl Test 12/12/16 20:37 12/12/16 21:23 12/13/16 02:05 12/13/16 04:26 Bedside Glucose 69 mg/dl 84 mg/dl 75 mg/dl 82 mg/dl Test 12/13/16 04:44 12/13/16 05:53 12/13/16 07:48 Bedside Glucose 82 mg/dl 79 mg/dl Assessment & Plan 71 yo female with sepsis and encephalopathy with possibly from PNA who initially required pressors, bipap, warming blanket. pt is much better now and floor status. has underlying dementia at baseline. slow clinical improvement. ESRD- -for dialysis today and will try to remove 2 liters as bp tolerates. continue - - dialysis schedule Anemia of Renal Failure-hg pending today; had just hit 10 yesrterday. will continue procrit on dialysis to help keep hg between 10 to 11. multifactorial sepsis > bibasilar pna, possible aspiration; also pseudomonas in urine of HD pt >> ID following/ managing abtx and follow up studies appreciate consult; will follow with you
[2016-12-13] MEDS ORDERED: CRD200 PO (10:01)
[2016-12-13] MEDS ORDERED: TPRSR25 PO (10:01)
--- NOTE | 2016-12-13 10:09 | Discharge Instructions ---
Discharge Instructions Admission Admission Date: Dec 01, 2016 at 13:04 Admission Diagnosis: Acute Hypercapnic Respiratory Failure. Discharge Care Plan - Problem: Medical Problems: (1) Urinary Tract Infection (2) Bacteremia (3) Encephalopathy Care Plan - Goal(s): Decrease discomfort Care Plan - Instructions: Activity Recommendations: no limitations Recommended Home Diet: Renal ADA VTE Core Measure Inpt VTE Proph given/why not?: Unfractionated heparin SQ Laboratory Results Test Results: Hemoglobin A1c Test 09/19/16 05:20 Range/Units Estimated Average Glucose 146 mg/dl Hemoglobin A1c 6.7 H 4.5-5.6 % Lipid Panel Test 10/10/16 04:49 Range/Units Triglycerides Level 58 0-150 mg/dl Cholesterol Level 92 0-200 mg/dl HDL Cholesterol 61 mg/dl Cholesterol/HDL Ratio 1.5 LDL Cholesterol, Calculated 19 mg/dl Bryce Oliveros Recommendations: Call your doctor if: * Temperature above 101 degrees * Pain not relieved by pain medicine ordered * There is increased drainage or redness from any incision * You have any unanswered questions or concerns. Your Doctors Instructions noted above were prepared by provider Leti Silveira.
[2016-12-13] MEDS: AMIODARONE 200 MG TAB PO SCH (13:03)
[2016-12-13] MEDS: PANTOprazole SOD 40 MG TAB PO SCH (13:03)
[2016-12-13] MEDS: GUAIFENESIN 600 MG TABCR PO SCH (13:03)
[2016-12-13] MEDS: CLOPIDOGREL BISULFATE 75 MG TAB PO SCH (13:03)
[2016-12-13] MEDS: ASPIRIN 81 MG ECTAB PO SCH (13:03)
[2016-12-13] MEDS: METOPROLOL SUCC 25MG EXT REL TAB PO SCH (13:04)
[2016-12-13] MEDS: MODAFINIL 100 MG TAB PO SCH (13:08)
[2016-12-13] MEDS: HEPARIN SOD 5000 UNIT/0.5 ML CARP SQ SCH (13:08)
[2016-12-13 13:37] LABS: MEAN CELL VOLUME 100.3 fL (80-100); MEAN CORPUSCULAR HGB CONC 30.9 g/dl (32-36); MEAN PLATELET VOLUME 11.4 fL (7.4-10.4); PLATELET COUNT 163 K/uL (130-400); RED BLOOD COUNT 3.19 M/uL (4.2-5.4); WHITE BLOOD COUNT 5.02 K/uL (4.8-10.8)
--- NOTE | 2016-12-13 16:44 | Discharge Summary ---
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 DO NOT EXCEED 3 GM APAP/24 HOURS. Albuterol Sulfate (Albuterol Sulfate) 1.25 Mg/3 Ml Neb 1 VIAL NEB Q6H PRN for SOB/Wheezing, ML Allopurinol (Zyloprim) 100 Mg Tab 100 MG PO DAILY, TAB Aspirin (Aspirin 81) 81 Mg Tab 81 MG PO DAILY Atorvastatin (Lipitor) 40 Mg Tab 40 MG PO HS, TAB Clopidogrel (Plavix) 75 Mg Tab 75 MG PO DAILY, TAB Dextrose (Diabetic Use) (Insta-Glucose) 77.4 % Gel 1 APPLN PO UD PRN for HYPOGLYCEMIA PROTOCOL NEEDED FOR BSG <60 AND/[place] SYMPTOMATIC PT MUST BE ABLE TO SAFELY SWALLOW Ergocalciferol (Vitamin D 98160 Unit) 50,000 Unit Cap 56688 UNIT PO WK TAKE EVERY SUNDAY FOR 4 WEEKS Escitalopram (Lexapro) 10 Mg Tab 10 MG PO HS Furosemide (Lasix) 20 Mg Tab 30 MG PO BID, TAB Gabapentin (Neurontin) Unknown Strength Cap Unknown Dose PO Q8, CAP Glucagon (Glucagon Emergency Kit) 1 Mg Kit 1 APPLN IM UD PRN for HYPOGLYCEMIA PROTOCOL NEEDED FOR BLOOD GLUCOSE LESS THAN 60 AND/OR SYMPTOMATIC/UNRESPONSIVE HYPOGLYCEMIA. MAY REPEAT AFTER 15 MINUTES IF NEEDED. Guaifenesin La (Guaifenesin Er) 600 Mg Tabcr 600 MG PO Q12H, TAB Insulin Lispro (Humalog) Inj SC ACHS FOLLOWING SLIDING SCALE BSG INSULIN UNITS 0 - 150 0 UNITS 151 - 200 6 UNITS 201 - 250 8 UNITS 251-300 10 UNITS 301-350 12 UNITS > 351-400 16 UNITS 401 AND HIGHER - CALL MD Levothyroxine Sodium (Synthroid) 75 Mcg Tab 75 MCG PO DAILY Omeprazole (Prilosec) 20 Mg Capcr 2 CAP PO DAILY Ondansetron Hcl (Zofran) 4 Mg Tab 4 MG PO Q6H PRN for Nausea or Vomiting Oxygen (Oxygen) Gas 2 LITERS NA UD PRN for SOB/RESPIRATORY DISTRESS MAINTAIN O2 SAT>90% Polyethylene Glycol 3350 (Miralax) 1 Pow Pow 17 GM PO BID Sevelamer Carbonate (Renvela) 800 Mg Tab 1600 MG PO HS Sevelamer Carbonate (Renvela) 800 Mg Tab 3200 MG PO TIDM for 90 Days, TAB 3 Refills Tiotropium [place] (Spiriva Handihaler) 30 Puff/540 Mcg Aerp 1 CAP INH DAILY, INHALER Vitamin B Cmplx/Vitc/Folic Ac (Nephrocaps) Cap 1 CAP PO DAILY, CAP Discontinued Medications: Calcium Carbonate (Tums) 500 Mg Chew 500 MG PO HS Carvedilol (Coreg) 6.25 Mg Tab 6.25 MG PO BID, TAB Docusate Sodium (Docusate Sodium) 100 Mg Cap 100 MG PO BID Hydralazine Hcl (Apresoline) 50 Mg Tab 50 MG PO TID, TAB Insulin Glargine (Lantus Solostar) 100 Unit/Ml Inj 8 UNITS SC Q12, PEN Oseltamivir Phosphate (Tamiflu) 30 Mg Cap 2 CAP PO 3XWK for 5 Days, CAP Prednisone Tab (Prednisone) 10 Mg Tab 10 MG PO DAILY, TAB Psyllium (Metamucil) 0.52 Gm Cap 2 CAP PO TID Ropinirole (Requip) 2 Mg Tab 2 MG PO HS, TAB Discharge Exam Review of Systems: Constitutional: No chills, No fever Eyes: No worsening of vision ENT: No hearing loss Respiratory: No cough, No sputum Cardiovascular: No chest pain Abdomen: No nausea, No pain Musculoskeletal: No joint pain Genitourinary - Female: No dysuria Genitourinary - Male: No dysuria, No hematuria Neurologic: No memory loss Psychiatric: No depression symptoms Endocrine: No fatigue Hematologic / Lymphatic: No abnormal bleeding/bruising Integumentary: No rash Physical Exam: General Appearance: WD/WN, no apparent distress Eyes: normal inspection ENT: normal ENT inspection Neck: supple Respiratory/Chest: chest non-tender Cardiovascular: no murmur, + irregularly irregular Abdomen / GI: normal bowel sounds, non tender Extremities: normal inspection 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 Staff found her unresponsive in her Bed and called EMS. In the ED, she had a pH of 7.18, pCO2 of 64, and a pO2 of 49 on 2LNC. Her CXR showed pulmonary edema vs. bilateral pneumonia. She was placed on Bipap and became more alert. She was noticed to be hypotensive and started on levafed, and admitted to the ICU. Patient was found to in COPD exacerbation thought to be etiology of hypercapnia and started on steroids and nebulizers. Patient was started on broad spectrum antibiotics with vancomycin , Levaquin and zosyn as she was found to have a positive U/A. Patients admission blood and urine culture grew Pseudomonas and micrococcus respectively. Infectious disease was consulted. Patient was switched to vancomycin and imipenem. Patient was found to be in atrial fibrillation with RVR. Cardiology was consulted and started the patient on amiodarone. After multiple days in the ICU patient s sepsis and altered mental status resolved. She also was not requiring bipap for respiratory support. Patient was transferred to the [facility] floor and monitored for 1 week prior to discharge. Patients vancomycin and imipenem were stopped per infectious disease as it was thougth patient had an accurate course of treatment. Nephrology had been consulted on admission to continue patients M/W/F dialysis treatment during hospital stay. Of note patient also had a decreased appetite at time of discharge as patient attributed to the hospital food. No appetite stimulants were added Pseudomonas UTI with sepsis - appreciated infectious disease input - patient completed 7 days of imipenem and 10 days of vancomycin - antibiotics stopped on 1.30 - per I/D appropriate treatment - follow up I/D as outpatient prn - observed patient off antibiotics for >24 hours prior to d/c Micrococcus Bacteremia - see above COPD Exacerbation - treated with duonebs - steroid course completed during admission New onset afibb - continued on metoprolol and started amiodarone - appreciated cardiology input - patient not a candidate for anticoagulation 2/2 to epistaxis and chronic anemia ESRD - euvolemic - on M/W/F dialysis/dialysis Hypothyroidism - continued Synthroid Anemia - stable AMS - 2/2 to metabolic encephalopathy and hypercapnic respiratory failure - resolved PPx - heparin Disposition-discharged back to [facility] in stable condition Total Time Spent: Greater than 30 minutes This includes examination of the patient, discharge planning, medication reconciliation, and communication with other providers. Discharge Instructions Please refer to the electronic Patient Visit Report (Discharge Instructions) for additional information. Additional Copies To [facility]
[2017-08-03] MEDS ORDERED: AMIO200T4 PO (11:18)
[2017-08-03] MEDS ORDERED: UMEC1INH INH (11:19)
[2017-08-03] MEDS ORDERED: ESCI1TAB6 PO (11:21)
[2017-08-03] MEDS ORDERED: MIRT1TAB27 PO (11:24)
== END 2016-12-13 16:45 | DRG 871 ==
LOC: ENRESERVTM → ENRESERVDT → EDBD 09:06 → C.EDB 09:07 → C.MSICU 13:04 → C.MS2W 12-05 10:22 → EDBEDREQ 12-05 10:27
PROVIDERS: ADMIT Hospitalist; ATTEND Hospitalist
PROC: 02HV33Z Insertion of Infusion Device into Superior Vena Cava, Percutaneous Approach (ICD-10-PCS; principal; 2016-12-01)
PROC: 4A133R1 Monitoring of Arterial Saturation, Peripheral, Percutaneous Approach (ICD-10-PCS; 2016-12-01)
DX: A41.9 Sepsis, unspecified organism (principal); N18.6 End stage renal disease; R65.21 Severe sepsis with septic shock; G93.49 Other encephalopathy; J96.02 Acute respiratory failure with hypercapnia; J15.1 Pneumonia due to Pseudomonas; I13.2 Hypertensive heart and chronic kidney disease with heart failure and with stage 5 chronic kidney disease, or end stage renal disease; I50.32 Chronic diastolic (congestive) heart failure; E87.2 Acidosis; J44.1 Chronic obstructive pulmonary disease with (acute) exacerbation; N39.0 Urinary tract infection, site not specified; I42.9 Cardiomyopathy, unspecified; Z68.36 Body mass index [BMI] 36.0-36.9, adult; I25.10 Atherosclerotic heart disease of native coronary artery without angina pectoris; Z95.5 Presence of coronary angioplasty implant and graft; E11.22 Type 2 diabetes mellitus with diabetic chronic kidney disease; E66.9 Obesity, unspecified; F32.9 Major depressive disorder, single episode, unspecified; M10.9 Gout, unspecified; Z99.2 Dependence on renal dialysis; E78.5 Hyperlipidemia, unspecified; E03.9 Hypothyroidism, unspecified; I48.0 Paroxysmal atrial fibrillation; Z90.49 Acquired absence of other specified parts of digestive tract; Z80.9 Family history of malignant neoplasm, unspecified; Z82.49 Family history of ischemic heart disease and other diseases of the circulatory system; Z87.891 Personal history of nicotine dependence; Z88.6 Allergy status to analgesic agent; Z88.8 Allergy status to other drugs, medicaments and biological substances; Z88.0 Allergy status to penicillin; Z79.82 Long term (current) use of aspirin; Z79.899 Other long term (current) drug therapy; Z79.02 Long term (current) use of antithrombotics/antiplatelets; Z79.4 Long term (current) use of insulin; Z79.52 Long term (current) use of systemic steroids; E11.40 Type 2 diabetes mellitus with diabetic neuropathy, unspecified; E11.21 Type 2 diabetes mellitus with diabetic nephropathy; K43.9 Ventral hernia without obstruction or gangrene; B96.5 Pseudomonas (aeruginosa) (mallei) (pseudomallei) as the cause of diseases classified elsewhere; I34.0 Nonrheumatic mitral (valve) insufficiency; E11.649 Type 2 diabetes mellitus with hypoglycemia without coma; E11.51 Type 2 diabetes mellitus with diabetic peripheral angiopathy without gangrene; D63.1 Anemia in chronic kidney disease; G47.33 Obstructive sleep apnea (adult) (pediatric); B96.20 Unspecified Escherichia coli [E. coli] as the cause of diseases classified elsewhere; B95.62 Methicillin resistant Staphylococcus aureus infection as the cause of diseases classified elsewhere; F03.90 Unspecified dementia, unspecified severity, without behavioral disturbance, psychotic disturbance, mood disturbance, and anxiety; D69.6 Thrombocytopenia, unspecified

== ENCOUNTER → 2016-12-01 | Outpatient (CLI) | payer OTHER ==
[~2016-12-01] MED LIST: ACET-1311 PO; ALBU1.257 NEB; ALLO100T PO; AMINLIQ31 PO; AMIO200T4 PO; ASPI-435 PO; B-CO1CAP17 PO; B-COCAP2 PO; CALC500C3 PO; CARV6.252 PO; CLOP1TAB15 PO; CRD200 PO; DEXT40GE PO; DOCU100C31 PO; ERGO500037 PO; ESCI10TA17 PO; ESCI1TAB6 PO; FURO20TA PO; FURO80TA63 PO; GABA1CAP5 PO; GLGKIT IM; GUAI1TAB75 PO; HMLI SC; HYDR-4717 PO; INSDGIPEN SC; INSUINJ4 SQ; LEVO75TA PO; LPT/40 PO; MIRT1TAB27 PO; OMEP40CA PO; ONDA4TAB46 PO; OSEL30CA PO; OXGN; POLY335019 PO; PRED10TA PO; PRLSR20 PO; PSYL0.524 PO; ROPI0.5T PO; ROPI2TAB6 PO; SEVE800T7 PO; SPRIN/30 INH; TIOTCAP INH; TPRSR25 PO; UMEC1INH INH; [UNRECOGNIZED DRUG - CODE] PO
[2016-12-01 08:37] LABS: BASO % 0.1 %; BASO ABS # 0.01 K/uL (0-0.2); EOS % 1.1 %; HEMATOCRIT 36.3 % (37-47); IG% 0.3 %; LYMPH % 7.8 %; LYMPH ABS # 0.83 K/uL (1.2-3.4); MEAN CELL VOLUME 102.5 fL (80-100); MEAN CORPUSCULAR HEMOGLOBIN 32.5 pg (25-34); MEAN PLATELET VOLUME 12.5 fL (7.4-10.4); MONO % 2.1 %; NEUT % 88.6 %; PLATELET COUNT 154 K/uL (130-400); RED BLOOD COUNT 3.54 M/uL (4.2-5.4); WHITE BLOOD COUNT 10.65 K/uL (4.8-10.8)
[2016-12-01 08:55] LABS: COMPLETE YES; MEAN CORPUSCULAR HGB CONC 31.7 g/dl (32-36)
[2016-12-01 08:58] LABS: BLOOD UREA NITROGEN 88 mg/dl (7-18); BUN/CREATININE RATIO 15.7 (10-20); CALCIUM 8.6 mg/dl (8.5-10.1); CARBON DIOXIDE 23 mmol/L (21-32); CHLORIDE 98 mmol/L (98-107); GLUCOSE 84 mg/dl (70-99); POTASSIUM 3.9 mmol/L (3.5-5.1); SODIUM 133 mmol/L (136-145)
== END | disposition home or self-care (01) ==
LOC: C.LABUPUNI 08:02 → EDSTATUS 12-15 11:04
PROVIDERS: ATTEND Family Medicine
DX: I50.31 Acute diastolic (congestive) heart failure (principal)

== ENCOUNTER → 2017-02-20 | Outpatient (CLI) | payer OTHER ==
[~2017-02-20] MED LIST changes: +ACET325T96 PO; +ACET650S10 RE; -AMINLIQ31 PO; +AMIO200T4 PO; +B-CO1CAP17 PO; -B-COCAP2 PO; +BARRIER CREAM TOP; -CALC500C3 PO; -CARV6.252 PO; +CRD200 PO; -DOCU100C31 PO; +ESCI1TAB6 PO; +FURO20TA PO; -FURO80TA63 PO; -HYDR-4717 PO; +HYDR-5688 PO; -INSUINJ4 SQ; +METO25TA3 PO; +MIRT1TAB27 PO; -OMEP40CA PO; -PRED10TA PO; +PRLSR20 PO; -PSYL0.524 PO; -ROPI0.5T PO; +SPRIN/30 INH; +SUPPLEMENT SHAKE PO; -TIOTCAP INH; +TPRSR25 PO; +UMEC1INH INH; -[UNRECOGNIZED DRUG - CODE] PO; +[UNRECOGNIZED DRUG - CODE] TOP
== END ==
LOC: C.LABUPUNI 08:05
PROVIDERS: ATTEND Family Medicine
DX: M1A.9XX0 Chronic gout, unspecified, without tophus (tophi) (principal)

== ENCOUNTER → 2017-02-22 | Outpatient (CLI) | payer OTHER ==
[2017-02-22 09:55] LABS: BASO % 0.7 %; BASO ABS # 0.03 K/uL (0-0.2); COMPLETE YES; EOS % 5.1 %; HEMATOCRIT 35.3 % (37-47); IG% 0.2 %; LYMPH % 29.7 %; LYMPH ABS # 1.27 K/uL (1.2-3.4); MEAN CELL VOLUME 91.9 fL (80-100); MEAN CORPUSCULAR HEMOGLOBIN 29.2 pg (25-34); MEAN CORPUSCULAR HGB CONC 31.7 g/dl (32-36); MEAN PLATELET VOLUME 11.8 fL (7.4-10.4); MONO % 13.8 %; NEUT % 50.5 %; PLATELET COUNT 133 K/uL (130-400); RED BLOOD COUNT 3.84 M/uL (4.2-5.4); WHITE BLOOD COUNT 4.28 K/uL (4.8-10.8)
== END ==
LOC: C.LABUPUNI 09:18
PROVIDERS: ATTEND Family Medicine
DX: E11.43 Type 2 diabetes mellitus with diabetic autonomic (poly)neuropathy (principal)

== ENCOUNTER → 2017-06-02 | Outpatient (CLI) | payer OTHER ==
[~2017-06-02] MED LIST changes: -ACET325T96 PO; -ACET650S10 RE; -BARRIER CREAM TOP; -HYDR-5688 PO; -METO25TA3 PO; -SUPPLEMENT SHAKE PO; -[UNRECOGNIZED DRUG - CODE] TOP
[2017-06-02 07:20] LABS: HEMATOCRIT 31.5 % (37-47); MEAN CELL VOLUME 94.6 fL (80-100); MEAN CORPUSCULAR HEMOGLOBIN 31.5 pg (25-34); MEAN CORPUSCULAR HGB CONC 33.3 g/dl (32-36); MEAN PLATELET VOLUME 12.8 fL (7.4-10.4); PLATELET COUNT 108 K/uL (130-400); RED BLOOD COUNT 3.33 M/uL (4.2-5.4); WHITE BLOOD COUNT 4.26 K/uL (4.8-10.8)
[2017-06-02 07:21] LABS: BASO % 0.7 %; BASO ABS # 0.03 K/uL (0-0.2); COMPLETE YES; EOS % 4.7 %; IG% 0.7 %; LARGE PLATELETS 1+; LYMPH % 27.7 %; LYMPH ABS # 1.18 K/uL (1.2-3.4); MONO % 18.3 %; NEUT % 47.9 %; PLT ESTIMATE DECREASED
--- NOTE | 2017-06-06 12:08 | CODING QUERY NO DIAGNOSIS ---
TREATMENT RENDERED WITHOUT A DIAGNOSIS To promote full compliance with coding requirements relating to patient care, physician participation is requested in all cases of roller coaster engineer uncertainty. Please assist us with providing a diagnosis/symptom for the test(s) below: A diagnosis/symptom was not documented on your Order. A valid diagnosis/symptom is required to bill all insurances. Please remember that we are unable to code a diagnosis of rule out, probable, possible, questionable, or suspected. Tests that require a diagnosis: DOS 06/02 * CBC DIAGNOSIS: Provider Signature: Date: Thank you [facility] Information Management Once completed, please kindly fax back to [phone] For questions please call [phone]
== END ==
LOC: C.LABUPNIT 09:53
PROVIDERS: ATTEND Nurse Practitioner Family
DX: D64.9 Anemia, unspecified (principal); N18.6 End stage renal disease

== ENCOUNTER → 2017-06-23 | Outpatient (CLI) | payer OTHER ==
[2017-06-23 09:27] LABS: THYROID STIMULATING HORMONE 1.56 uIu/ml (0.300-4.500)
[2017-06-23 10:23] LABS: ESTIMATED AVERAGE GLUCOSE 88 mg/dl; HA1C FLAG Normal (Normal)
== END | disposition home or self-care (01) ==
LOC: C.LABUPUNI 11:17
PROVIDERS: ATTEND Nurse Practitioner Family
DX: E11.43 Type 2 diabetes mellitus with diabetic autonomic (poly)neuropathy (principal); E03.9 Hypothyroidism, unspecified

== ENCOUNTER → 2017-07-05 | Outpatient (CLI) | payer OTHER ==
[2017-07-05 08:09] LABS: BASO % 0.3 %; BASO ABS # 0.03 K/uL (0-0.2); COMPLETE YES; EOS % 2.1 %; HEMATOCRIT 34.5 % (37-47); IG% 0.1 %; LYMPH % 7.6 %; LYMPH ABS # 0.75 K/uL (1.2-3.4); MEAN CELL VOLUME 101.5 fL (80-100); MEAN CORPUSCULAR HEMOGLOBIN 31.2 pg (25-34); MEAN CORPUSCULAR HGB CONC 30.7 g/dl (32-36); MEAN PLATELET VOLUME 11.8 fL (7.4-10.4); NEUT % 78.9 %; PLATELET COUNT 138 K/uL (130-400); WHITE BLOOD COUNT 9.81 K/uL (4.8-10.8)
== END ==
LOC: C.LABUPUNI 07:46
PROVIDERS: ATTEND Nurse Practitioner Family
DX: R11.2 Nausea with vomiting, unspecified (principal)

== ENCOUNTER 2017-08-03 06:42 | Emergency (ER) | payer OTHER ==
[~2017-08-03] VITALS: Ht 170.2 cm; Wt 85.9 kg
[~2017-08-03 06:42] MED LIST changes: -AMIO200T4 PO; -ASPI-435 PO; -B-CO1CAP17 PO; -CLOP1TAB15 PO; -ESCI10TA17 PO; -ESCI1TAB6 PO; -FURO20TA PO; -LPT/40 PO; -MIRT1TAB27 PO; -POLY335019 PO; -PRLSR20 PO; -SEVE800T7 PO; -UMEC1INH INH
[2017-08-03 06:44] VITALS: BP 201/55; TEMP 36.6; Ht 170.2 cm; Wt 85.9 kg
[2017-08-03] MEDS ORDERED: SODIUM CHLORIDE 0.9% 500ML 500 ML IV STA (07:03)
[2017-08-03 07:58] LABS: BASO % 0.6 %; BASO ABS # 0.03 K/uL (0-0.2); COMPLETE YES; EOS % 5.1 %; IG% 0.2 %; LYMPH % 26.6 %; LYMPH ABS # 1.24 K/uL (1.2-3.4); MEAN CELL VOLUME 100.9 fL (80-100); MEAN CORPUSCULAR HEMOGLOBIN 31.7 pg (25-34); MEAN CORPUSCULAR HGB CONC 31.4 g/dl (32-36); MEAN PLATELET VOLUME 11.6 fL (7.4-10.4); MONO % 12.4 %; NEUT % 55.1 %; PLATELET COUNT 144 K/uL (130-400); RED BLOOD COUNT 3.47 M/uL (4.2-5.4); WHITE BLOOD COUNT 4.67 K/uL (4.8-10.8)
--- NOTE | 2017-08-03 08:31 | DIAGNOSTIC IMAGING REPORT ---
CT SCAN OF THE ABDOMEN AND PELVIS WITHOUT IV CONTRAST CLINICAL HISTORY: Lower abdominal pain. COMPARISON STUDY: Abdominal CT dated 12/03/2016 and 03/20/2013. TECHNIQUE: CT scan of the abdomen and pelvis is performed from the lung bases to the proximal femora. Images are reviewed in the axial, sagittal, and coronal planes. IV contrast was not administered for this examination as per the referring clinician. Note that the examination was performed in suboptimal fashion without oral and IV contrast. A dose lowering technique was utilized adhering to the principles of ALARA. CT DOSE: 1130.00 mGy.cm FINDINGS: Lung bases: The heart is enlarged and without pericardial effusion. The coronary arteries are densely calcified. There are trace pleural effusions with dependent atelectasis. A 3 mm left lower lobe nodule is partially seen on image #1. This is unchanged from 2013 and of doubtful significance. There is a moderate hiatal hernia. Liver: The unenhanced liver is normal in size, contour, and attenuation. There is no intrahepatic biliary ductal dilatation. Gallbladder: Calcified gallstones are identified. The gallbladder is otherwise normal in appearance. Spleen: Normal in size and attenuation. Pancreas: The unenhanced pancreas is moderately atrophic and grossly unremarkable. Adrenal glands: Unremarkable. Kidneys: The unenhanced kidneys are atrophic and without hydronephrosis. Extensive renovascular calcifications are noted. Punctate bilateral nonobstructing calculi are also suggested (left kidney image #112, right kidney image #117). There is no evidence of contour deforming renal mass lesion. Abdominal vasculature: The abdominal aorta is normal in course and caliber noting advanced atherosclerotic calcification. Bowel: There is a large fat-containing ventral hernia in the pelvis. This contains a nonobstructed segment of the transverse colon. No bowel obstruction is identified. The appendix is not identified and reported surgically absent. Peritoneum: There is no intraperitoneal free air or abdominal ascites. Lymphadenopathy: None. Pelvic viscera: The bladder is decompressed and grossly unremarkable. The uterus and adnexa are normal as imaged. Bilateral fat-containing inguinal hernias are noted. A slightly hyperdense Bartholin's gland cyst measuring 2.1 cm is suggested in the right on image #408. Skeletal structures: The skeletal structures are osteopenic. There is moderate lumbosacral spondylosis as well as scoliosis. Erosive endplate change at L3-L4 is unchanged from prior studies. No lytic or blastic lesions are seen. IMPRESSION: 1. There are no acute infectious or inflammatory findings in the abdomen or pelvis. 2. There is a large fat-containing ventral hernia which also contains a nonobstructed segment of the transverse colon. No bowel obstruction is identified. 3. Cholelithiasis. 4. There are small bilateral nonobstructing renal calculi. 5. Cardiomegaly and trace pleural effusions. 6. Moderate hiatal hernia. 7. Additional findings as above. Electronically signed by: Weston Crum M.D. 08/03/2017 8:30 AM Dictated Date/Time: 08/03/2017 8:19 AM
[2017-08-03 08:32] LABS: BUN/CREATININE RATIO 13.9 (10-20); CALCIUM 8.7 mg/dl (8.5-10.1); CREATININE 4.7 mg/dl (0.60-1.20); POTASSIUM 4.1 mmol/L (3.5-5.1)
[2017-08-03 12:28] VITALS: PULSE 55; O2SAT 100
--- NOTE | 2017-08-03 13:50 | EMERGENCY ROOM VISIT NOTE ---
History Report prepared by Benito: Shania Cox Under the Supervision of: Dr. Juliano Gilmore D.O. First contact with patient: 06:50 Chief Complaint: DIARRHEA Stated Complaint: DIARRHEA Nursing Triage Summary: pt brought to ed via ems from dialysis. reports on arrival to dialysis pt had uncontrollable diarrhea. dr everett sent pt here for evaluation. pt did not have any dialysis today. pt reports that she had abd pain at time of diarrha but denies complaints now. History of Present Illness The patient is a 72 year old female who presents to the Emergency Room with complaints of persistent diarrhea that began this morning. The patient states that she has continuously been having diarrhea. She states that she goes to dialysis Sunday, Sunday, and Sunday. The patient reports left lower quadrant abdominal pain. Per nursing staff, the patient resides at [facility] with a history of dementia. Nursing staff reports that the patient was at dialysis today and was sent to the emergency department by Dr. Everett for further evaluation. Nursing staff reports that the patient did not receive any dialysis this morning. The patient denies eating any recent strange foods. She states that she no longer walks, noting that she is confined to a wheelchair. The patient denies any recent travel. Pt denies headache, change in vision, fevers, chest pain, shortness of breath, nausea, vomiting, and melena. The history is limited secondary to the patient's dementia. Source of History: patient History Limited By: dementia Onset: this morning Position: other (global) Quality: other (diarrhea) Timing: other (persistent) Associated Symptoms: + abdominal pain Review of Systems The history and ROS are limited secondary to the patient's dementia. 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 (18) Loss of consciousness (19) PAF (paroxysmal atrial fibrillation) (20) Pneumonia (21) Pseudomonas urinary tract infection (22) Recurrent epistaxis (23) Sepsis (24) Syncope (25) Syncope (26) UTI (urinary tract infection) Surgical Problems: (1) bilat ankle surgery (2) Hernia, abdominal (3) History of appendectomy (4) Nasal septoplasty (5) Repair of rotator cuff by suture (6) right elbow surgery Family History Cancer Heart disease Hypertension Social History Smoking Status: Never Smoker Alcohol Use: none Drug Use: none Marital Status: Housing Status: detention Occupation Status: retired, disabled Current/Historical Medications Scheduled Allopurinol (Zyloprim), 100 MG PO DAILY Amiodarone Hcl (Cordarone), 200 MG PO DAILY Aspirin (Aspirin 81), 81 MG PO DAILY Atorvastatin (Lipitor), 40 MG PO HS Clopidogrel (Plavix), 75 MG PO DAILY Escitalopram (Lexapro), 10 MG PO HS Escitalopram Oxalate (Lexapro), 5 MG PO HS Furosemide (Lasix), 30 MG PO BID Levothyroxine Sodium (Synthroid), 75 MCG PO DAILY Metoprolol Succinate (Metoprolol Succinate ER), 12.5 MG PO BID Mirtazapine (Mirtazapine), 7.5 MG PO HS Omeprazole (Prilosec), 40 MG PO DAILY Polyethylene Glycol 3350 (Miralax), 17 GM PO BID Sevelamer Carbonate (Renvela), 1,600 MG PO TIDM Sevelamer Carbonate (Renvela), 800 MG PO UD Umeclidinium Wilmot (Incruse Ellipta), 1 PUFF INH DAILY Vitamin B Cmplx/Vitc/Folic Ac (Nephrocaps), 1 CAP PO DAILY Allergies Coded Allergies: Amoxicillin (Verified Allergy, Intermediate, HIVES, 08/03/17) HAS TOLERATED CEFEPIME, KEFLEX, AND ROCEPHIN IN PAST ADMISSIONS Clavulanic Acid (Verified Allergy, Intermediate, HIVES, 08/03/17) hives NSAIDs (Unverified Allergy, Unknown, UNKNOWN, 08/03/17) JARET Inhibitors (Verified Adverse Reaction, Unknown, HYPERKALEMIA, 08/03/17) [facility] 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 MCFRALANE - WILL WATCH K - OK TO GIVE LISINOPRIL. Physical Exam Vital Signs Date Time Temp Pulse Resp B/P (MAP) Pulse Ox O2 Delivery O2 Flow Rate FiO2 08/03/17 12:28 55 20 100 Room Air 08/03/17 10:10 53 16 100 Room Air 08/03/17 10:06 54 08/03/17 08:42 54 20 100 Room Air 08/03/17 07:01 52 08/03/17 06:44 36.6 52 22 201/55 99 Room Air Physical Exam GENERAL: alert, laying bed, disheveled, chronically ill appearing, well nourished, no distress, non-toxic EYE EXAM: normal conjunctiva. OROPHARYNX: no exudate, no erythema, lips, buccal mucosa, and tongue normal and mucous membranes are moist NECK: supple, no nuchal rigidity, no adenopathy, non-tender LUNGS: Clear to auscultation. Normal chest wall mechanics HEART: no murmurs, S1 normal and S2 normal ABDOMEN: abdomen soft, minimally tender in left lower quadrant, umbilical hernia which is reproducible, normo-active bowel sounds, no rebound or guarding. BACK: Back is symmetrical on inspection and there is no deformity, no midline tenderness, no CVA tenderness. SKIN: no rashes and no bruising UPPER EXTREMITIES: Fistula in left upper extremity with palpable thrill, no focal weakness. LOWER EXTREMITIES: No pitting edema. NEURO EXAM: Normal sensorium, cranial nerves II-XII grossly intact, normal speech, no focal weakness of arms, no focal weakness of legs. Medical Decision & Procedures ER Provider Diagnostic Interpretation: CT:Per my review, radiologist interpretation. CT SCAN OF THE ABDOMEN AND PELVIS WITHOUT IV CONTRAST CLINICAL HISTORY: Lower abdominal pain. COMPARISON STUDY: Abdominal CT dated 12/03/2016 and 03/20/2013. TECHNIQUE: CT scan of the abdomen and pelvis is performed from the lung bases to the proximal femora. Images are reviewed in the axial, sagittal, and coronal planes. IV contrast was not administered for this examination as per the referring clinician. Note that the examination was performed in suboptimal fashion without oral and IV contrast. A dose lowering technique was utilized adhering to the principles of ALARA. CT DOSE: 1130.00 mGy.cm FINDINGS: Lung bases: The heart is enlarged and without pericardial effusion. The coronary arteries are densely calcified. There are trace pleural effusions with dependent atelectasis. A 3 mm left lower lobe nodule is partially seen on image #1. This is unchanged from 2013 and of doubtful significance. There is a moderate hiatal hernia. Liver: The unenhanced liver is normal in size, contour, and attenuation. There is no intrahepatic biliary ductal dilatation. Gallbladder: Calcified gallstones are identified. The gallbladder is otherwise normal in appearance. Spleen: Normal in size and attenuation. Pancreas: The unenhanced pancreas is moderately atrophic and grossly unremarkable. Adrenal glands: Unremarkable. Kidneys: The unenhanced kidneys are atrophic and without hydronephrosis. Extensive renovascular calcifications are noted. Punctate bilateral nonobstructing calculi are also suggested (left kidney image #112, right kidney image #117). There is no evidence of contour deforming renal mass lesion. Abdominal vasculature: The abdominal aorta is normal in course and caliber noting advanced atherosclerotic calcification. Bowel: There is a large fat-containing ventral hernia in the pelvis. This contains a nonobstructed segment of the transverse colon. No bowel obstruction is identified. The appendix is not identified and reported surgically absent. Peritoneum: There is no intraperitoneal free air or abdominal ascites. Lymphadenopathy: None. Pelvic viscera: The bladder is decompressed and grossly unremarkable. The uterus and adnexa are normal as imaged. Bilateral fat-containing inguinal hernias are noted. A slightly hyperdense Bartholin's gland cyst measuring 2.1 cm is suggested in the right on image #408. Skeletal structures: The skeletal structures are osteopenic. There is moderate lumbosacral spondylosis as well as scoliosis. Erosive endplate change at L3-L4 is unchanged from prior studies. No lytic or blastic lesions are seen. IMPRESSION: 1. There are no acute infectious or inflammatory findings in the abdomen or pelvis. 2. There is a large fat-containing ventral hernia which also contains a nonobstructed segment of the transverse colon. No bowel obstruction is identified. 3. Cholelithiasis. 4. There are small bilateral nonobstructing renal calculi. 5. Cardiomegaly and trace pleural effusions. 6. Moderate hiatal hernia. 7. Additional findings as above. Electronically signed by: Weston Crum M.D. 08/03/2017 8:30 AM Dictated Date/Time: 08/03/2017 8:19 AM Laboratory Results 08/03/17 07:46 Red Blood Count 3.47, Mean Corpuscular Volume 100.9, Mean Corpuscular Hemoglobin 31.7, Mean Corpuscular Hemoglobin Concent 31.4, Mean Platelet Volume 11.6, Neutrophils (%) (Auto) 55.1, Lymphocytes (%) (Auto) 26.6, Monocytes (%) ( Auto) 12.4, Eosinophils (%) (Auto) 5.1, Basophils (%) (Auto) 0.6, Neutrophils # (Auto) 2.57, Lymphocytes # (Auto) 1.24, Monocytes # (Auto) 0.58, Eosinophils # ( Auto) 0.24, Basophils # (Auto) 0.03 08/03/17 07:46 Test 08/03/17 07:46 White Blood Count 4.67 K/uL (4.8-10.8) Red Blood Count 3.47 M/uL (4.2-5.4) Hemoglobin 11.0 g/dL (12.0-16.0) Hematocrit 35.0 % (37-47) Mean Corpuscular Volume 100.9 fL (80-100) Mean Corpuscular Hemoglobin 31.7 pg (25-34) Mean Corpuscular Hemoglobin Concent 31.4 g/dl (32-36) Platelet Count 144 K/uL (130-400) Mean Platelet Volume 11.6 fL (7.4-10.4) Neutrophils (%) (Auto) 55.1 % Lymphocytes (%) (Auto) 26.6 % Monocytes (%) (Auto) 12.4 % Eosinophils (%) (Auto) 5.1 % Basophils (%) (Auto) 0.6 % Neutrophils # (Auto) 2.57 K/uL (1.4-6.5) Lymphocytes # (Auto) 1.24 K/uL (1.2-3.4) Monocytes # (Auto) 0.58 K/uL (0.11-0.59) Eosinophils # (Auto) 0.24 K/uL (0-0.5) Basophils # (Auto) 0.03 K/uL (0-0.2) RDW Standard Deviation 61.6 fL (36.4-46.3) RDW Coefficient of Variation 16.7 % (11.5-14.5) Immature Granulocyte % (Auto) 0.2 % Immature Granulocyte # (Auto) 0.01 K/uL (0.00-0.02) Anion Gap 7.0 mmol/L (3-11) Est Creatinine Clear Calc Drug Dose 12.2 ml/min Estimated GFR () 10.0 Estimated GFR (Non- 8.7 BUN/Creatinine Ratio 13.9 (10-20) Calcium Level 8.7 mg/dl (8.5-10.1) Total Bilirubin 0.4 mg/dl (0.2-1) Direct Bilirubin 0.2 mg/dl (0-0.2) Aspartate Amino Transf (AST/SGOT) 51 U/L (15-37) Alanine Aminotransferase (ALT/SGPT) 51 U/L (12-78) Alkaline Phosphatase 180 U/L (45-117) Total Protein 6.8 gm/dl (6.4-8.2) Albumin 2.0 gm/dl (3.4-5.0) Lipase 146 U/L (73-393) Laboratory results per my review. Medications Administered Medications (Trade) Dose Ordered Sig/Gelacio Route Start Time Stop Time Status Last Admin Dose Admin Sodium Chloride 500 ml @ 999 mls/hr Q31M STAT IV 08/03/17 07:03 08/03/17 07:33 DC 08/03/17 08:41 999 MLS/HR ECG Indication: other (diarrhea) Rate (beats per minute): 54 Rhythm: sinus bradycardia Findings: 1st degree AV block, left axis deviation, other (poor baseline) ED Course ED COURSE: Vital signs were reviewed and showed hypertensive, bradycardic The patients medical record was reviewed The above diagnostic studies were performed and reviewed. ED treatments and interventions as stated above. 0656: The patient was evaluated in room A10. A complete history and physical examination was performed. 0703: Ordered Sodium Chloride 500 ml @ 999 mls/hr IV. 1151: I discussed the patients case with Dr. Everett, Nephrology. He states that the patient can back to the dialysis unit. 1201: I spoke to Dr. Everett, Nephrology at this time. He states that the patient can come back to the dialysis unit at any time today. 1225: Upon reevaluation, the patient is resting comfortably.I discussed my findings with the patient and she understands and agrees with the treatment plan. Based on the patients age, coexisting illnesses, exam and lab findings the decision to treat as an outpatient was made. The patient remained stable while under my care. The patient appeared well at the time of discharge. Medical Decision Differential diagnoses includes but is not limited to gastritis, peptic ulcer disease, GERD, gallbladder disease, pancreatitis, small bowel obstruction, acute coronary syndrome, pericarditis, ischemic bowel, irritable bowel disease, irritable bowel syndrome, appendicitis, diverticulitis, malignancy, hernia, urinary tract infection, torsion, perforation, trauma, infectious. Patient is a 72-year-old female that presents to ER referred in by dialysis for diarrhea. She notes her diarrhea started this morning. No other complaints. She denies any abdominal pain or fevers. CBC shows a hemoglobin of 11. No leukocytosis. Creatinine was 4.7 but she does need dialysis today. Bilirubin all LFTs lipase is normal. CT of the abdomen and pelvis was negative for any acute pathology. Discussed with Dr. Everett who set up dialysis for her at 2 PM. Care management so transportation and discussed with González. She will need a C. difficile study for heart side. Discussed with Pt concerning signs and symptoms to watch out for. Pt was instructed to follow up with their PCP and discussed with the patient their option to return to the ED at anytime for persistent or worsening symptoms. The appropriate anticipatory guidance and out- patient management, including indications for return to the emergency department , were explained at length to the patient and understood. Medication Reconcilliation Current Medication List: was personally reviewed by me Blood Pressure Screening Patient's blood pressure: Elevated blood pressure Blood pressure disposition: Referred to PCP Consults Time Called: 1135 Consulting Physician: Dr. Everett, Nephrology Returned Call: 1151 I discussed the patients case with Dr. Everett, Nephrology. He states that the patient can back to the dialysis unit. Impression Primary Impression: Diarrhea Additional Impression: Anemia Scribe Attestation The scribe's documentation has been prepared under my direction and personally reviewed by me in its entirety. I confirm that the note above accurately reflects all work, treatment, procedures, and medical decision making performed by me. Departure Information Dispostion Home / Self-Care Referrals [facility] [place] (PCP) Forms HOME CARE DOCUMENTATION FORM, IMPORTANT VISIT INFORMATION, WORK / SCHOOL INSTRUCTIONS Patient Instructions ED Diarrhea Viral, My [facility] Additional Instructions You were sent to the ER for diarrhea. Unable to obtain a stool sample at the ER. Your detention will need to obtain a stool culture. Discussed with Dr. Everett from nephrology. He set up dialysis at 2 PM for you. Please obtain dialysis and follow-up with heart side for stool culture. You were found to have a blood pressure greater than 120 systolic over 90 diastolic. Due to the new Medicare guidelines, we are now recommending that you follow up with your primary care doctor in regards to this elevated blood pressure. Problem Qualifiers Primary Impression: Diarrhea Diarrhea type: unspecified type Qualified Codes: R19.7 - Diarrhea, unspecified Additional Impression: Anemia Anemia type: unspecified type Qualified Codes: D64.9 - Anemia, unspecified
[2017-08-26] MEDS ORDERED: ESCI10TA17 PO (01:41)
[2017-08-26] MEDS ORDERED: ASPI-435 PO (02:56)
[2017-08-26] MEDS ORDERED: LPT/40 PO (07:40)
[2017-08-26] MEDS ORDERED: CLOP1TAB15 PO (07:40)
[2017-08-26] MEDS ORDERED: POLY335019 PO (07:40)
[2017-08-26] MEDS ORDERED: B-CO1CAP17 PO (10:07)
[2017-08-26] MEDS ORDERED: PRLSR20 PO (10:07)
[2017-08-26] MEDS ORDERED: FURO20TA PO (10:07)
[2017-08-26] MEDS ORDERED: SEVE800T7 PO ×2 (10:12→11:45)
[2017-08-26] MEDS ORDERED: AMIO200T4 PO (11:18)
[2017-08-26] MEDS ORDERED: UMEC1INH INH (11:19)
[2017-08-26] MEDS ORDERED: ESCI1TAB6 PO (11:21)
[2017-08-26] MEDS ORDERED: MIRT1TAB27 PO (11:24)
== END 2017-08-03 12:44 | disposition home or self-care (01) ==
LOC: EDBD 06:42 → C.EDA 06:43
DX: R19.7 Diarrhea, unspecified (principal); D64.9 Anemia, unspecified; F03.90 Unspecified dementia, unspecified severity, without behavioral disturbance, psychotic disturbance, mood disturbance, and anxiety; I25.10 Atherosclerotic heart disease of native coronary artery without angina pectoris; J44.9 Chronic obstructive pulmonary disease, unspecified; I13.2 Hypertensive heart and chronic kidney disease with heart failure and with stage 5 chronic kidney disease, or end stage renal disease; E11.22 Type 2 diabetes mellitus with diabetic chronic kidney disease; N18.6 End stage renal disease; I50.32 Chronic diastolic (congestive) heart failure; E78.5 Hyperlipidemia, unspecified; I48.0 Paroxysmal atrial fibrillation; F32.9 Major depressive disorder, single episode, unspecified; E03.9 Hypothyroidism, unspecified; Z87.01 Personal history of pneumonia (recurrent); Z87.440 Personal history of urinary (tract) infections; Z99.2 Dependence on renal dialysis; Z99.3 Dependence on wheelchair; Z90.89 Acquired absence of other organs; Z98.890 Other specified postprocedural states; Z82.49 Family history of ischemic heart disease and other diseases of the circulatory system; M10.9 Gout, unspecified; Z79.02 Long term (current) use of antithrombotics/antiplatelets; Z79.82 Long term (current) use of aspirin; Z79.899 Other long term (current) drug therapy

== ENCOUNTER 2017-08-26 20:08 | Emergency (ER) | payer OTHER ==
[~2017-08-26] VITALS: Ht 170.2 cm; Wt 87.0 kg
[2017-08-26 20:07] VITALS: TEMP 36.8; Ht 170.2 cm; Wt 87.0 kg
[~2017-08-26 20:08] MED LIST changes: -ACET325T96 PO; -ACET650S10 RE; -ALBU1.257 NEB; -BARRIER CREAM TOP; -METO25TA3 PO; -ONDA4TAB46 PO; -SUPPLEMENT SHAKE PO; -[UNRECOGNIZED DRUG - CODE] TOP
--- NOTE | 2017-08-26 21:06 | DIAGNOSTIC IMAGING REPORT ---
CHEST ONE VIEW PORTABLE CLINICAL HISTORY: Chest pain. COMPARISON STUDY: Chest radiograph December 08, 2016. FINDINGS: There is no pneumothorax or pleural effusion. Cardiomegaly is unchanged. Extensive atherosclerotic plaque of the thoracic aorta is again noted. No lobar consolidation is present. There is diffuse interstitial thickening. There may be mild right lung airspace opacities. IMPRESSION: 1. Diffuse interstitial thickening and mild right lung opacities. The findings favor pulmonary edema. An infectious process could appear similar. 2. Moderate cardiomegaly. Electronically signed by: Charlie Hayden M.D. 08/26/2017 9:05 PM Dictated Date/Time: 08/26/2017 9:03 PM
[2017-08-26 21:28] LABS: BASO % 0.8 %; BASO ABS # 0.05 K/uL (0-0.2); COMPLETE YES; IG% 0.2 %; LYMPH % 18.3 %; LYMPH ABS # 1.11 K/uL (1.2-3.4); MEAN CELL VOLUME 99.5 fL (80-100); MEAN CORPUSCULAR HEMOGLOBIN 31.5 pg (25-34); MEAN CORPUSCULAR HGB CONC 31.6 g/dl (32-36); MEAN PLATELET VOLUME 11.1 fL (7.4-10.4); MONO % 5.9 %; NEUT % 72.8 %; PLATELET COUNT 135 K/uL (130-400); RED BLOOD COUNT 3.72 M/uL (4.2-5.4); WHITE BLOOD COUNT 6.06 K/uL (4.8-10.8)
[2017-08-26] MEDS ORDERED: ALBU1.257 NEB (21:46)
[2017-08-26] MEDS ORDERED: ACET325T96 PO (21:46)
[2017-08-26] MEDS ORDERED: ACET650S10 RE (21:46)
[2017-08-26] MEDS ORDERED: [UNRECOGNIZED DRUG - CODE] TOP (21:46)
[2017-08-26] MEDS ORDERED: BARRIER CREAM TOP (21:46)
[2017-08-26] MEDS ORDERED: ONDA4TAB46 PO (21:46)
[2017-08-26] MEDS ORDERED: SUPPLEMENT SHAKE PO (21:46)
[2017-08-26] MEDS ORDERED: METO25TA3 PO (21:46)
--- NOTE | 2017-08-26 22:00 | DIAGNOSTIC IMAGING REPORT ---
CT OF THE HEAD WITHOUT CONTRAST CLINICAL HISTORY: Leg. COMPARISON STUDY: Head CT December 01, 2016. CT DOSE: 537.48 mGy.cm TECHNIQUE: Helical axial images of the head were obtained without IV contrast. Automated exposure control was utilized for the study. A dose lowering technique was utilized adhering to the principles of ALARA. FINDINGS: No acute intracranial hemorrhage, midline shift or mass effect is present. Ventricular system is stable. Basilar cisterns are patent. There are no extra-axial collections. White matter hypodensity suggests small vessel disease. There are no findings to suggest acute dural sinus thrombosis or acute territorial infarct. There may be an old lacunar infarct within the right cerebellar hemisphere. There is extensive intracranial vascular calcification. A small amount of fluid within the bilateral mastoid air cells is unchanged. Visualized portions of the bilateral maxillary sinuses are opacified. Right maxillary sinus opacification is new since exam of December 01, 2016. There is also moderate mucosal thickening of the remainder of the sinuses which has increased. There are secretions within the nasal cavity. IMPRESSION: 1. No acute intracranial findings. 2. Progression of extensive paranasal sinus opacification since exam of December 01, 2016. Electronically signed by: Charlie Hayden M.D. 08/26/2017 9:58 PM Dictated Date/Time: 08/26/2017 9:54 PM
[2017-08-26 22:07] LABS: BUN/CREATININE RATIO 9.5 (10-20); CALCIUM 8.5 mg/dl (8.5-10.1); CKMB/CK RATIO 4.8 (0-3.0); POTASSIUM 4.6 mmol/L (3.5-5.1)
[2017-08-26 22:09] LABS: CREATININE 5.36 mg/dl (0.60-1.20)
[2017-08-26 22:36] LABS: PARTIAL THROMBOPLASTIN RATIO 1.2; PROTHROMBIN TIME (PATIENT) 11.2 SECONDS (9.0-12.0)
--- NOTE | 2017-08-26 23:13 | Medical Consult ---
Consultation Date of Consultation: Aug 26, 2017. 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 According to the EMS report the patient was found to have a blood pressure of 70/40 and hypoxic however when she was assessed by the EMS the patient was 98% on RA and no longer hypotensive. The patient was assessed in the ED and found to to be hypertensive in fact with a systolic of > 200. The patient is oriented to self and place however not to time. She was able to answer question appropriately and denies any shortness of breath or pain. The patient was laying flat during this assessment. Past Medical/Surgical History ESRD COPD DM HTN Hyperlipid Mild Dementia Sepsis PAF CAD Sepsis Family History Cancer Heart disease Hypertension Social History Smoking Status: Former Smoker Smokeless Tobacco Use: No Alcohol Use: none Drug Use: none Marital Status: Housing Status: half-way Occupation Status: retired, disabled Allergies Coded Allergies: Amoxicillin (Verified Allergy, Intermediate, HIVES, 08/03/17) HAS TOLERATED CEFEPIME, KEFLEX, AND ROCEPHIN IN PAST ADMISSIONS Clavulanic Acid (Verified Allergy, Intermediate, HIVES, 08/03/17) hives NSAIDs (Unverified Allergy, Unknown, UNKNOWN, 08/03/17) JARET Inhibitors (Verified Adverse Reaction, Unknown, HYPERKALEMIA, 08/03/17) [facility] 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 Home Medications Reported Home Medications Medications Dose Route/Sig Max Daily Dose Days Date Category Dose Instructions Zofran (Ondansetron HCl) 4 Mg Tab 4 Mg PO Q6 PRN 08/26/17 Reported Toprol-Xl (Metoprolol Succinate) 25 Mg Tabcr 12.5 Mg PO BID 08/26/17 Reported [Supplement Shake] 1 PO 3XWK 08/26/17 Reported GIVE ON DIALYSIS DAYS Tolnaftate 1 % Aer 1 Appln TOP BID 08/26/17 Reported Albuterol Sulfate 1.25 Mg/3 Ml Neb 1 Vial NEB Q6 PRN 15 08/26/17 Reported Tylenol (Acetaminophen) 650 Mg Supp 650 Mg RE Q6 08/26/17 Reported Tylenol (Acetaminophen) 325 Mg Tab 650 Mg PO Q6 PRN 08/26/17 Reported [Barrier Cream] 1 Appln TOP QS PRN 08/26/17 Reported Mirtazapine 7.5 Mg Tab 7.5 Mg PO HS 08/03/17 Reported Lexapro (Escitalopram Oxalate) 5 Mg Tab 5 Mg PO HS 08/03/17 Reported TOTAL DOSE=15MG Incruse Ellipta (Umeclidinium Juncos) 62.5 Mcg/Inh Inh 1 Puff INH DAILY 08/03/17 Reported Cordarone (Amiodarone Hcl) 200 Mg Tab 200 Mg PO DAILY 08/03/17 Reported GIVE 0430 MON, WED, SUN Renvela (Sevelamer Carbonate) 800 Mg Tab 800 Mg PO UD 90 12/01/16 Reported WITH SNACKS Lasix (Furosemide) 20 Mg Tab 30 Mg PO BID 12/01/16 Reported Nephrocaps (Vitamin B Complex/Vit C/Folic Acid) Cap 1 Cap PO DAILY 12/01/16 Reported Prilosec (Omeprazole) 20 Mg Capcr 40 Mg PO DAILY 12/01/16 Reported Aspirin 81 (Aspirin) 81 Mg Tab 81 Mg PO DAILY 10/23/16 Reported Plavix (Clopidogrel Bisulfate) 75 Mg Tab 75 Mg PO DAILY 10/09/16 Reported Miralax (Polyethylene Glycol 3350) 1 Pow Pow 17 Gm PO BID 10/09/16 Reported Lipitor (Atorvastatin) 40 Mg Tab 40 Mg PO HS 10/09/16 Reported Lexapro (Escitalopram Oxalate) 10 Mg Tab 10 Mg PO HS 01/28/16 Reported TOTAL DOSE=15MG Renvela (Sevelamer Carbonate) 800 Mg Tab 1,600 Mg PO TIDM 02/01/15 Reported Synthroid (Levothyroxine Sodium) 75 Mcg Tab 75 Mcg PO DAILY 09/24/14 Reported Zyloprim (Allopurinol) 100 Mg Tab 100 Mg PO DAILY 09/24/14 Reported GIVE 0430 ON M, W, F Review of Systems Constitutional: No chills, No fatigue Respiratory: No cough, No shortness of breath, No dyspnea on exertion, No dyspnea at rest Cardiovascular: No chest pain Abdomen: No pain, No nausea, No vomiting Musculoskeletal: + joint pain (BL) Neurologic: + weakness, + balance problems, + problem reported (tremors, unchanged), No numbness/tingling Endocrine: No fatigue Integumentary: No rash, No new/changing skin lesions Physical Exam Date Time Temp Pulse Resp B/P (MAP) Pulse Ox O2 Delivery O2 Flow Rate FiO2 08/26/17 22:30 59 20 236/50 93 Room Air 08/26/17 22:00 60 18 203/49 94 Room Air 08/26/17 20:31 59 08/26/17 20:07 36.8 60 18 232/58 96 Room Air General Appearance: no apparent distress Head: normocephalic, atraumatic Eyes: normal inspection, PERRL, EOMI, sclerae normal ENT: normal ENT inspection, hearing grossly normal Neck: supple, no JVD Respiratory/Chest: no respiratory distress, no accessory muscle use, + decreased breath sounds (bilat bases), + crackles (right base) Cardiovascular: normal peripheral pulses (+1 bilat), + bradycardia, + systolic murmur (3/6) Abdomen/GI: normal bowel sounds, non tender, soft Extremities/Musculoskelatal: no calf tenderness, no pedal edema, + pertinent finding (contractures of fingers and toes noted) Neurologic/Psych: alert, + pertinent finding (decreased sensation to bilat feet , unchanged, oriented to self and place) Skin: normal color, warm/dry, no rash Lymphatic: no adenopathy Laboratory Results Last 24 Hours Test 08/26/17 20:31 08/26/17 21:15 08/26/17 21:24 08/26/17 22:07 Creatine Kinase MB Ratio 4.8 White Blood Count 6.06 K/uL Red Blood Count 3.72 M/uL Hemoglobin 11.7 g/dL Hematocrit 37.0 % Mean Corpuscular Volume 99.5 fL Mean Corpuscular Hemoglobin 31.5 pg Mean Corpuscular Hemoglobin Concent 31.6 g/dl Platelet Count 135 K/uL Mean Platelet Volume 11.1 fL Neutrophils (%) (Auto) 72.8 % Lymphocytes (%) (Auto) 18.3 % Monocytes (%) (Auto) 5.9 % Eosinophils (%) (Auto) 2.0 % Basophils (%) (Auto) 0.8 % Neutrophils # (Auto) 4.41 K/uL Lymphocytes # (Auto) 1.11 K/uL Monocytes # (Auto) 0.36 K/uL Eosinophils # (Auto) 0.12 K/uL Basophils # (Auto) 0.05 K/uL RDW Standard Deviation 57.0 fL RDW Coefficient of Variation 15.8 % Immature Granulocyte % (Auto) 0.2 % Immature Granulocyte # (Auto) 0.01 K/uL Sodium Level 139 mmol/L Potassium Level 4.6 mmol/L Chloride Level 106 mmol/L Carbon Dioxide Level 25 mmol/L Anion Gap 9.0 mmol/L Blood Urea Nitrogen 51 mg/dl Creatinine 5.36 mg/dl Est Creatinine Clear Calc Drug Dose 10.7 ml/min Estimated GFR () 8.6 Estimated GFR (Non- 7.4 BUN/Creatinine Ratio 9.5 Random Glucose 54 mg/dl Calcium Level 8.5 mg/dl Total Bilirubin 0.6 mg/dl Direct Bilirubin 0.3 mg/dl Aspartate Amino Transf (AST/SGOT) 28 U/L Alanine Aminotransferase (ALT/SGPT) 23 U/L Alkaline Phosphatase 186 U/L Total Creatine Kinase 29 U/L Creatine Kinase MB 1.4 ng/ml Total Protein 7.3 gm/dl Albumin 2.1 gm/dl Lipase 70 U/L Bedside Troponin I 0.060 ng/ml Prothrombin Time 11.2 SECONDS Prothromb Time International Ratio 1.0 Activated Partial Thromboplast Time 31.4 SECONDS Partial Thromboplastin Ratio 1.2 [~ rep ct add3]] CHEST ONE VIEW PORTABLE CLINICAL HISTORY: Chest pain. COMPARISON STUDY: Chest radiograph December 08, 2016. FINDINGS: There is no pneumothorax or pleural effusion. Cardiomegaly is unchanged. Extensive atherosclerotic plaque of the thoracic aorta is again noted. No lobar consolidation is present. There is diffuse interstitial thickening. There may be mild right lung airspace opacities. IMPRESSION: 1. Diffuse interstitial thickening and mild right lung opacities. The findings favor pulmonary edema. An infectious process could appear similar. 2. Moderate cardiomegaly. [~ rep ct add3]] CT OF THE HEAD WITHOUT CONTRAST CLINICAL HISTORY: Leg. COMPARISON STUDY: Head CT December 01, 2016. CT DOSE: 537.48 mGy.cm TECHNIQUE: Helical axial images of the head were obtained without IV contrast. Automated exposure control was utilized for the study. A dose lowering technique was utilized adhering to the principles of ALARA. FINDINGS: No acute intracranial hemorrhage, midline shift or mass effect is present. Ventricular system is stable. Basilar cisterns are patent. There are no extra-axial collections. White matter hypodensity suggests small vessel disease. There are no findings to suggest acute dural sinus thrombosis or acute territorial infarct. There may be an old lacunar infarct within the right cerebellar hemisphere. There is extensive intracranial vascular calcification. A small amount of fluid within the bilateral mastoid air cells is unchanged. Visualized portions of the bilateral maxillary sinuses are opacified. Right maxillary sinus opacification is new since exam of December 01, 2016. There is also moderate mucosal thickening of the remainder of the sinuses which has increased. There are secretions within the nasal cavity. IMPRESSION: 1. No acute intracranial findings. 2. Progression of extensive paranasal sinus opacification since exam of December 01, 2016. Assessment & Plan This is a 72 yo f that has a history of ESRD that was sent to the ED for evaluation of hypotension. As noted previously the patient has not been noted to have hypotension in the ED however hypertension. She was also found to have an elevated POC troponin of 0.066. In light of the patient's ESRD and review of past labs the patient has a tendency to have a chronically elevated troponin < 0.120. The patient was also noted to have some findings reflecting fluid overload on CXR as well as with noted right crackles at the base. Patient would ultimately benefit from the scheduled dialysis she will be receiving tomorrow. It is reassuring that her troponin reflective of her BL and that the patient is laying flat without complaints of shortness of breath. If the patient's systolic blood pressure/ continues to remain asymptomatic can be managed in the ED she would be a candidate to return home to [facility] to receive dialysis as scheduled. Resident Physician Supervision Note: I was present with Dr. hernadnez during the history and exam. I discussed the case with the resident and agree with the findings and plan as documented in the note. Any exceptions or clarifications are listed here: Pleasant 72 y/o F ESRD / HD - on routine vitals was noted to be hyotensive earlier in the day - it appears that she arrived at the hospital due to this although possibly sevral hours later. The pt was hypertensive on arrival to the ER. She had no complaints and did not know specifically why she was sent in although she was told her BP was low. OE AAO x 2 S1,2 R Crackles are auible at the R base NT, NT Minimal edema P: The pt is hypertensive rather than hypotensive so it is unclear if her earlier reading was spurious Although we can appreciate mild volume overload clinically, she was lying flat at the time of evaluation and did not exhibit dyspnea, tachypnea or hypoxia. As the pt is due for AM dialysis we believe it is reasnable to discharge her after controlling her BP. The above has been discussed with the ER , pt , resident Documented By: Pino Smith Additional Copies To [facility]; Milton Palumbo I., DO
[2017-08-27 02:01] VITALS: BP 229/91; PULSE 63; O2SAT 99
--- NOTE | 2017-08-27 02:41 | EMERGENCY ROOM VISIT NOTE ---
History Report prepared by Benito: Sandrine Heredia Under the Supervision of: Dr. Jean Claude Mackey M.D. First contact with patient: 20:19 Chief Complaint: HYPOTENSION Stated Complaint: EVAL FOR HYPOTENSION History of Present Illness The patient is a 72 year old female who presents to the Emergency Room with complaints of an episode of hypotension starting prior to arrival. The patient complains of feeling ill the past 4 days. She states that she is nauseous, diarrhea, and has a throbbing headache. The patient denies falling and hitting her head, chest pain, shortness of breath, abdominal pain, melena, hematochezia , urinary symptoms, and missing any dialysis. At present, she really has minimal complaints and seems comfortable. No trauma or injury Source of History: patient, treating provider, custodial notes Onset: prior to arrival Position: other (global) Quality: other (global) Timing: other (episode) Associated Symptoms: + headache, + nausea, + diarrhea, No chest pain, No SOB , No abdominal pain, No melena, No hematochezia, No urinary symptoms Note: The patient denies falling and hitting her head. Review of Systems See HPI for pertinent positives & negatives. A total of 10 systems reviewed and were otherwise negative. 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 Nurse's notes were reviewed and I agree with. Family History Cancer Heart disease Hypertension Social History Smoking Status: Never Smoker Alcohol Use: none Drug Use: none Marital Status: Housing Status: custodial Occupation Status: retired, disabled Current/Historical Medications Scheduled Acetaminophen (Tylenol), 650 MG RE Q6 Allopurinol (Zyloprim), 100 MG PO DAILY Amiodarone Hcl (Cordarone), 200 MG PO DAILY Aspirin (Aspirin 81), 81 MG PO DAILY Atorvastatin (Lipitor), 40 MG PO HS Clopidogrel (Plavix), 75 MG PO DAILY Escitalopram (Lexapro), 10 MG PO HS Escitalopram Oxalate (Lexapro), 5 MG PO HS Furosemide (Lasix), 30 MG PO BID Levothyroxine Sodium (Synthroid), 75 MCG PO DAILY Metoprolol Succ (Toprol Xl) (Toprol-Xl), 12.5 MG PO BID Mirtazapine (Mirtazapine), 7.5 MG PO HS Omeprazole (Prilosec), 40 MG PO DAILY Polyethylene Glycol 3350 (Miralax), 17 GM PO BID Sevelamer Carbonate (Renvela), 1,600 MG PO TIDM Sevelamer Carbonate (Renvela), 800 MG PO UD Tolnaftate (Tolnaftate), 1 APPLN TOP BID Umeclidinium [place] (Incruse Ellipta), 1 PUFF INH DAILY Vitamin B Cmplx/Vitc/Folic Ac (Nephrocaps), 1 CAP PO DAILY [Supplement Shake], 1 PO 3XWK Scheduled PRN Acetaminophen Tab (Tylenol), 650 MG PO Q6 PRN for Pain or Fever Albuterol Sulfate (Albuterol Sulfate), 1 VIAL NEB Q6 PRN for SOB/Wheezing Ondansetron Hcl (Zofran), 4 MG PO Q6 PRN for Nausea [Barrier Cream], 1 APPLN TOP QS PRN for PREVENT SKIN BREAKDOWN Allergies Coded Allergies: Amoxicillin (Verified Allergy, Intermediate, HIVES, 08/03/17) HAS TOLERATED CEFEPIME, KEFLEX, AND ROCEPHIN IN PAST ADMISSIONS Clavulanic Acid (Verified Allergy, Intermediate, HIVES, 08/03/17) hives NSAIDs (Unverified Allergy, Unknown, UNKNOWN, 08/03/17) JARET Inhibitors (Verified Adverse Reaction, Unknown, HYPERKALEMIA, 08/03/17) 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 Physical Exam Vital Signs Date Time Temp Pulse Resp B/P (MAP) Pulse Ox O2 Delivery O2 Flow Rate FiO2 08/27/17 02:01 63 18 229/91 99 Room Air 08/27/17 00:18 64 08/27/17 00:01 63 18 225/91 96 Room Air 08/26/17 22:30 59 20 236/50 93 Room Air 08/26/17 22:00 60 18 203/49 94 Room Air 08/26/17 20:31 59 08/26/17 20:07 36.8 60 18 232/58 96 Room Air Physical Exam General: Chronically-ill appearing older female in no acute distress. Appears comfortable. Voiced minimal complaints. HEENT: Normal cephalic. Small abrasion to the right lateral eye. Pupils are equal round and reactive to light. Extraocular movements are intact. Oropharynx is pink with moist mucous membranes. No swelling of the mouth lips or tongue. Neck: Supple with a midline trachea. No meningeal signs or stiffness, no JVD or bruits. No Stridor. Chest: Clear to auscultation bilaterally. No wheezes or rhonchi. No increased work of breathing. Heart: regular rate and rhythm. Abdomen: Soft nontender, nondistended without rebound guarding or rigidity. Chronic ventral hernia that is nontender. Extremities: No cyanosis clubbing or edema. No calf tenderness or assymetry. Dialysis fistula in left arm with palpable frill. Spine/Back. Non tender to palpation. No CVA tenderness Skin: Good turgor without rashes. Neurologic exam: Cranial nerves two through 12 are intact. Motor and sensation are intact and symmetrical throughout. Medical Decision & Procedures ER Provider Diagnostic Interpretation: Radiology results as stated below per my review and radiologist interpretation: CT OF THE HEAD WITHOUT CONTRAST CLINICAL HISTORY: Leg. COMPARISON STUDY: Head CT December 01, 2016. CT DOSE: 537.48 mGy.cm TECHNIQUE: Helical axial images of the head were obtained without IV contrast. Automated exposure control was utilized for the study. A dose lowering technique was utilized adhering to the principles of ALARA. FINDINGS: No acute intracranial hemorrhage, midline shift or mass effect is present. Ventricular system is stable. Basilar cisterns are patent. There are no extra-axial collections. White matter hypodensity suggests small vessel disease. There are no findings to suggest acute dural sinus thrombosis or acute territorial infarct. There may be an old lacunar infarct within the right cerebellar hemisphere. There is extensive intracranial vascular calcification. A small amount of fluid within the bilateral mastoid air cells is unchanged. Visualized portions of the bilateral maxillary sinuses are opacified. Right maxillary sinus opacification is new since exam of December 01, 2016. There is also moderate mucosal thickening of the remainder of the sinuses which has increased. There are secretions within the nasal cavity. IMPRESSION: 1. No acute intracranial findings. 2. Progression of extensive paranasal sinus opacification since exam of December 01, 2016. Electronically signed by: Charlie Hayden M.D. 08/26/2017 9:58 PM Dictated Date/Time: 08/26/2017 9:54 PM CHEST ONE VIEW PORTABLE CLINICAL HISTORY: Chest pain. COMPARISON STUDY: Chest radiograph December 08, 2016. FINDINGS: There is no pneumothorax or pleural effusion. Cardiomegaly is unchanged. Extensive atherosclerotic plaque of the thoracic aorta is again noted. No lobar consolidation is present. There is diffuse interstitial thickening. There may be mild right lung airspace opacities. IMPRESSION: 1. Diffuse interstitial thickening and mild right lung opacities. The findings favor pulmonary edema. An infectious process could appear similar. 2. Moderate cardiomegaly. Electronically signed by: Charlie Hayden M.D. 08/26/2017 9:05 PM Dictated Date/Time: 08/26/2017 9:03 PM Laboratory Results 08/26/17 21:15 Red Blood Count 3.72, Mean Corpuscular Volume 99.5, Mean Corpuscular Hemoglobin 31.5, Mean Corpuscular Hemoglobin Concent 31.6, Mean Platelet Volume 11.1, Neutrophils (%) (Auto) 72.8, Lymphocytes (%) (Auto) 18.3, Monocytes (%) (Auto) 5.9, Eosinophils (%) (Auto) 2.0, Basophils (%) (Auto) 0.8, Neutrophils # (Auto) 4.41, Lymphocytes # (Auto) 1.11, Monocytes # (Auto) 0.36, Eosinophils # (Auto) 0.12, Basophils # (Auto) 0.05 08/26/17 21:15 Test 08/26/17 21:15 08/26/17 21:24 08/26/17 22:07 White Blood Count 6.06 K/uL (4.8-10.8) Red Blood Count 3.72 M/uL (4.2-5.4) Hemoglobin 11.7 g/dL (12.0-16.0) Hematocrit 37.0 % (37-47) Mean Corpuscular Volume 99.5 fL (80-100) Mean Corpuscular Hemoglobin 31.5 pg (25-34) Mean Corpuscular Hemoglobin Concent 31.6 g/dl (32-36) Platelet Count 135 K/uL (130-400) Mean Platelet Volume 11.1 fL (7.4-10.4) Neutrophils (%) (Auto) 72.8 % Lymphocytes (%) (Auto) 18.3 % Monocytes (%) (Auto) 5.9 % Eosinophils (%) (Auto) 2.0 % Basophils (%) (Auto) 0.8 % Neutrophils # (Auto) 4.41 K/uL (1.4-6.5) Lymphocytes # (Auto) 1.11 K/uL (1.2-3.4) Monocytes # (Auto) 0.36 K/uL (0.11-0.59) Eosinophils # (Auto) 0.12 K/uL (0-0.5) Basophils # (Auto) 0.05 K/uL (0-0.2) RDW Standard Deviation 57.0 fL (36.4-46.3) RDW Coefficient of Variation 15.8 % (11.5-14.5) Immature Granulocyte % (Auto) 0.2 % Immature Granulocyte # (Auto) 0.01 K/uL (0.00-0.02) Anion Gap 9.0 mmol/L (3-11) Est Creatinine Clear Calc Drug Dose 10.7 ml/min Estimated GFR () 8.6 Estimated GFR (Non- 7.4 BUN/Creatinine Ratio 9.5 (10-20) Calcium Level 8.5 mg/dl (8.5-10.1) Total Bilirubin 0.6 mg/dl (0.2-1) Direct Bilirubin 0.3 mg/dl (0-0.2) Aspartate Amino Transf (AST/SGOT) 28 U/L (15-37) Alanine Aminotransferase (ALT/SGPT) 23 U/L (12-78) Alkaline Phosphatase 186 U/L (45-117) Total Creatine Kinase 29 U/L (26-192) Creatine Kinase MB 1.4 ng/ml (0.5-3.6) Creatine Kinase MB Ratio 4.8 (0-3.0) Total Protein 7.3 gm/dl (6.4-8.2) Albumin 2.1 gm/dl (3.4-5.0) Lipase 70 U/L (73-393) Bedside Troponin I 0.060 ng/ml (0-0.045) Prothrombin Time 11.2 SECONDS (9.0-12.0) Prothromb Time International Ratio 1.0 (0.9-1.1) Activated Partial Thromboplast Time 31.4 SECONDS (21.0-31.0) Partial Thromboplastin Ratio 1.2 Laboratory studies as stated above per my review. ECG Indication: nausea Rate (beats per minute): 65 Rhythm: sinus bradycardia Findings: 1st degree AV block, nonspecific-ST abn, other (LVH) Comparison ECG Date: July Change: no significant change ED Course 2024: Past medical records reviewed. The patient was evaluated in room C2B, and a complete history and physical examination were performed. 2135: I reevaluated the patient and she was in CT. 2150: I discussed the patient's case with Dr. Toro 5: I reevaluated the patient and she is resting comfortably. 2249: I discussed the patient's case with Dr. Smith. He thinks the patient can go home. The patient will be discharged home. Medical Decision Differential diagnoses include sepsis, hypovolemia, electrolyte abnormality, metabolic abnormality, hypertension, intracranial hemorrhage. This patient comes in as described above. She was placed in room C6. She is here for treatment and evaluation of an episode of hypotension. She is actually hypertensive here and she's had some vague symptoms earlier today but really has no complaints at present. She denies chest pain or shortness breath. She's had no fall or trauma . She has a mild headache. I did a CAT scan of her head is unremarkable. EKG does not suggest acute coronary syndrome or arrhythmia. Troponin is minimally elevated 0.06 that she tends a chronically run elevated and is a dialysis patient. Chest x-ray does show that she has some interstitial edema think it most likely is pulmonary edema and she will begin dialysis in the morning is asymptomatic and not hypoxemic with this. She has no acute electrolyte or metabolic abnormalities and has no potassium abnormalities acutely. I did consult the [facility] team to see her for possible observation they feel she should is safe to go home and have her dialysis in the morning and she's been hypertensive here. At this point there is nothing to suggest sepsis or infection. She is happy the plan and asymptomatic and will be discharged. Medication Reconcilliation Current Medication List: was personally reviewed by me Blood Pressure Screening Patient's blood pressure: Elevated blood pressure Blood pressure disposition: Elevated BP felt to be situational Consults Time Called: 2146 Consulting Physician: Dr. Toro Returned Call: 2150 I discussed the patient's case with Dr. Toro Additional Consults: Time Called: 2246 Consulted Physician: Dr. Smith Returned Call: 2249 Additional Comments: I discussed the patient's case with Dr. Smith. He thinks the patient can go home. The patient will be discharged home. Impression Primary Impression: Hypotension Additional Impressions: CHF (congestive heart failure) End stage kidney disease Elevated troponin Scribe Attestation The scribe's documentation has been prepared under my direction and personally reviewed by me in its entirety. I confirm that the note above accurately reflects all work, treatment, procedures, and medical decision making performed by me. Departure Information Dispostion Home / Self-Care Referrals [facility] (PCP) Forms HOME CARE DOCUMENTATION FORM, IMPORTANT VISIT INFORMATION, WORK / SCHOOL INSTRUCTIONS Patient Instructions My [facility] Additional Instructions Rest. Return if chest pain, short of breath, fever chills, any new problems or concerns Ensure you get your dialysis in the morning Problem Qualifiers
== END 2017-08-27 02:28 | disposition home or self-care (01) ==
LOC: EDBD 20:08 → C.EDC 20:10
DX: I13.2 Hypertensive heart and chronic kidney disease with heart failure and with stage 5 chronic kidney disease, or end stage renal disease (principal); I50.32 Chronic diastolic (congestive) heart failure; N18.6 End stage renal disease; E11.22 Type 2 diabetes mellitus with diabetic chronic kidney disease; E03.9 Hypothyroidism, unspecified; R79.89 Other specified abnormal findings of blood chemistry; I48.0 Paroxysmal atrial fibrillation; F32.9 Major depressive disorder, single episode, unspecified; E78.5 Hyperlipidemia, unspecified; I25.10 Atherosclerotic heart disease of native coronary artery without angina pectoris; J44.9 Chronic obstructive pulmonary disease, unspecified; M10.9 Gout, unspecified; Z87.440 Personal history of urinary (tract) infections; Z87.891 Personal history of nicotine dependence; Z99.2 Dependence on renal dialysis; Z90.89 Acquired absence of other organs; Z98.890 Other specified postprocedural states; Z82.49 Family history of ischemic heart disease and other diseases of the circulatory system; Z79.02 Long term (current) use of antithrombotics/antiplatelets; Z79.82 Long term (current) use of aspirin; Z79.899 Other long term (current) drug therapy

== ENCOUNTER → 2017-08-26 | Outpatient (CLI) | payer OTHER ==
[~2017-08-26] MED LIST changes: -ACET-1311 PO; +ACET325T96 PO; +ACET650S10 RE; +AMIO200T4 PO; +ASPI-435 PO; +B-CO1CAP17 PO; +BARRIER CREAM TOP; +CLOP1TAB15 PO; -CRD200 PO; -DEXT40GE PO; -ERGO500037 PO; +ESCI10TA17 PO; +ESCI1TAB6 PO; +FURO20TA PO; -GABA1CAP5 PO; -GLGKIT IM; -GUAI1TAB75 PO; -HMLI SC; +LPT/40 PO; +METO25TA3 PO; +MIRT1TAB27 PO; -OXGN; +POLY335019 PO; +PRLSR20 PO; +SEVE800T7 PO; -SPRIN/30 INH; +SUPPLEMENT SHAKE PO; +UMEC1INH INH; +[UNRECOGNIZED DRUG - CODE] TOP
[2017-08-26 11:03] LABS: BASO % 0.5 %; BASO ABS # 0.03 K/uL (0-0.2); EOS % 1.3 %; HEMATOCRIT 37.2 % (37-47); IG% 0.2 %; LYMPH % 11.2 %; LYMPH ABS # 0.68 K/uL (1.2-3.4); MEAN CELL VOLUME 100.5 fL (80-100); MEAN CORPUSCULAR HEMOGLOBIN 31.4 pg (25-34); MEAN PLATELET VOLUME 11.5 fL (7.4-10.4); MONO % 7.1 %; NEUT % 79.7 %; PLATELET COUNT 145 K/uL (130-400); WHITE BLOOD COUNT 6.07 K/uL (4.8-10.8)
[2017-08-26 11:09] LABS: COMPLETE YES; MEAN CORPUSCULAR HGB CONC 31.2 g/dl (32-36)
[2017-08-26 11:50] LABS: ALB/GLOB RATIO 0.4 (0.9-2); ALKALINE PHOSPHATASE 193 U/L (45-117); ALT/SGPT 28 U/L (12-78); AST/SGOT 29 U/L (15-37); BLOOD UREA NITROGEN 48 mg/dl (7-18); BUN/CREATININE RATIO 10.1 (10-20); CALCIUM 8.4 mg/dl (8.5-10.1); CARBON DIOXIDE 28 mmol/L (21-32); CHLORIDE 105 mmol/L (98-107); CREATININE 4.66 mg/dl (0.60-1.20); GLUCOSE 77 mg/dl (70-99); POTASSIUM 4.5 mmol/L (3.5-5.1); SODIUM 141 mmol/L (136-145)
== END ==
LOC: C.LABUPNIT 12:12
PROVIDERS: ATTEND Nurse Practitioner Family
DX: N18.6 End stage renal disease (principal); R11.2 Nausea with vomiting, unspecified

== ENCOUNTER 2017-10-09 07:53 | Day surgery (SDC) | payer OTHER ==
[~2017-10-09] VITALS: Ht 165.1 cm; Wt 81.5 kg
[~2017-10-09 07:53] MED LIST changes: +ACET325T96 PO; +ACET650S10 RE; +ALBU1.257 NEB; +BARRIER CREAM TOP; +CLINDAMYCIN 600 MG/54 ML D5W IV SCH; +D5W AND 1/4NSS 1000 ML IV SCH; +METO25TA3 PO; +ONDA4TAB46 PO; +SUPPLEMENT SHAKE PO; -TPRSR25 PO; +[UNRECOGNIZED DRUG - CODE] TOP
[2017-10-09 08:50] VITALS: BP 152/65; PULSE 54; TEMP 36.8; O2SAT 99; Ht 165.1 cm; Wt 81.5 kg
--- NOTE | 2017-10-09 09:23 | History and Physical ---
History & Physical Date Oct 09, 2017. Chief Complaint ESRD, malfunctioning LUE AVF History of Present Illness The patient is a 72 year old female with multiple medical problems, including ESRD on HD, CAD, COPD, HTN, hyperlipidemia, etc, seen today for malfunctioning LUE AVF at HD. Pt has dementia and unable to provide reliable hx, so most of HPI obtained from prior documentation. Per HD unit, pt with elevated venous pressures and requested fistulagram to evaluate. Otherwise, pt appears to be doing ok and denies any other complaints. 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 Home Medications Scheduled Acetaminophen (Tylenol), 650 MG RE Q6 Allopurinol (Zyloprim), 100 MG PO DAILY Amiodarone Hcl (Cordarone), 200 MG PO DAILY Aspirin (Aspirin 81), 81 MG PO DAILY Atorvastatin (Lipitor), 40 MG PO HS Clopidogrel (Plavix), 75 MG PO DAILY Escitalopram (Lexapro), 10 MG PO HS Escitalopram Oxalate (Lexapro), 5 MG PO HS Furosemide (Lasix), 30 MG PO BID Levothyroxine Sodium (Synthroid), 75 MCG PO DAILY Metoprolol Succ (Toprol Xl) (Toprol-Xl), 12.5 MG PO BID Mirtazapine (Mirtazapine), 7.5 MG PO HS Omeprazole (Prilosec), 40 MG PO DAILY Polyethylene Glycol 3350 (Miralax), 17 GM PO BID Sevelamer Carbonate (Renvela), 1,600 MG PO TIDM Sevelamer Carbonate (Renvela), 800 MG PO UD Tolnaftate (Tolnaftate), 1 APPLN TOP BID Umeclidinium [place] (Incruse Ellipta), 1 PUFF INH DAILY Vitamin B Cmplx/Vitc/Folic Ac (Nephrocaps), 1 CAP PO DAILY [Supplement Shake], 1 PO 3XWK Scheduled PRN Acetaminophen Tab (Tylenol), 650 MG PO Q6 PRN for Pain or Fever Albuterol Sulfate (Albuterol Sulfate), 1 VIAL NEB Q6 PRN for SOB/Wheezing Ondansetron Hcl (Zofran), 4 MG PO Q6 PRN for Nausea [Barrier Cream], 1 APPLN TOP QS PRN for PREVENT SKIN BREAKDOWN Problem List Medical Problems: (1) Altered mental status (2) CAD (coronary artery disease) (3) Cellulitis of left lower extremity without foot (4) COPD (chronic obstructive pulmonary disease) (5) Depression (6) Diabetes mellitus type 2 in obese (7) Diastolic CHF (8) Dyslipidemia (9) Elevated troponin (10) End stage renal disease (11) End-stage renal disease on hemodialysis (12) ESRD (end stage renal disease) (13) Gout (14) HTN (hypertension) (15) Hyperkalemia (16) Hypothyroidism (17) 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 (18) Loss of consciousness (19) PAF (paroxysmal atrial fibrillation) (20) Pneumonia (21) Pseudomonas urinary tract infection (22) Recurrent epistaxis (23) Sepsis (24) Syncope (25) Syncope (26) UTI (urinary tract infection) Surgical Problems: (1) bilat ankle surgery (2) Hernia, abdominal (3) History of appendectomy (4) Nasal septoplasty (5) Repair of rotator cuff by suture (6) right elbow surgery Surgical / Medical History Hx Cardiac Surgery: Yes (angioplasty, stent) Hx Abdominal Surgery: Yes (appy, hernia repair) Hx Cancer Surgery: No Hx Thoracic Surgery: No Hx Orthopedic: Yes (BILATERAL ANKLE, ROTATOR CUFF, RIGHT ELBOW) Hx Urinary Tract Surgery: No Past Medical/Surgical History: Alzheimer's, CHF, COPD, Depression, Diabetes, Heart Disease, High Cholesterol, Hypertension, Kidney Disease, Thyroid Disease Family History Cancer Heart disease Hypertension Social History Smoking Status: Never Smoker Hx Tobacco Use In Past Year?: No Hx Alcohol Use - Type & Amnt: No Hx Substance Use -Type & Amnt: No Review of Systems Constitutional: No chills, No malaise Skin: No change in color Eyes: No visual changes ENMT: No sore throat Respiratory: No cough, No short of breath Cardiovascular: No chest pain, No palpitations, No syncope, No edema Gastrointestinal: No abdominal pain, No nausea, No vomiting Genitourinary - Female: No dysuria, No hematuria Additional Comments: Pt unreliable historian d/t dementia. Physical Exam Constitutional: General Apperance: well-nourished, well-developed Level of Distress: NAD, chronically ill Psychiatric: Mental Status: active & alert, normal mood, normal affect Orientation: to person, not oriented to time, not oriented to place Memory: recent memory abnormal, remote memory abnormal Head: normocephalic, atraumatic Eyes: EOM: EOMI ENMT: normal ENT inspection, hearing grossly normal Neck: supple, trachea midline Lungs: Respiratory effort: no dyspnea Auscultation: no rales/crackles, no rhonchi, decreased breath sounds Cardiovascular: Apical Impulse: not displaced Heart Auscultation: RRR, no rubs, no gallops Peripheral Pulses: Pulses: full and equal, in all extremities except if noted Bruits: none appreciated Carotid Pulse: normal on the left, normal on the right Brachial Pulses: normal on the left, normal on the right, pertinent finding (LUE AVF with good thrill/bruit) Radial Pulse: normal on the left, normal on the right Posterior Tibialis Pulse: decreased on the left, decreased on the right Dorsalis Pedis Pulse: decreased on the left, decreased on the right Abdomen: Inspection & Palpation: soft, non-distended, no tenderness, guarding & rebound Musculoskeletal: normal strength (5/5 throughout), normal tone Extremities: Upper Right: no cyanosis, no edema, no varicosities Upper Left: no cyanosis, no edema, no varicosities Lower Right: no cyanosis, no edema, no varicosities Lower Left: no cyanosis, no edema, no varicosities Neurologic: Cranial Nerves: grossly intact Assessment and Plan ASSESSMENT and PLAN: ESRD on HD Pt for LUE fistulagram with intervention by Dr Ross today. Discussed procedure with pt, however, pt is confused and unable to consent. Will obtain consent from sister by phone.
[2017-10-09] MEDS ORDERED: HYDR-5688 PO (09:37)
[2017-10-09] MEDS ORDERED: B-CO1CAP17 PO (09:37)
[2017-10-09] MEDS ORDERED: GUAI1TAB75 PO (09:37)
--- NOTE | 2017-10-09 10:51 | Procedure Note ---
Pre-Mod Sedation Assessment General Date of Moderate Sedation: Oct 09, 2017. Vital Signs: Vital Signs Past 12 Hours Date Time Temp Pulse Resp B/P (MAP) Pulse Ox O2 Delivery O2 Flow Rate FiO2 10/09/17 08:50 36.8 54 18 152/65 (94) 99 Room Air Pre-Sedation Airway Assessment Oral Cavity: Dentures Short Thick Neck: No Hx of Sleep Apnea: No Smoking Status: Former Smoker Mallampati Classification: Class I ASA Classification: Class III Notes The planned sedation has been discussed with the patient and consent obtained. I have identified the patient, determined the appropriateness of sedation and have assessed the patient immediately prior to the procedure. All medicine(s) and interventions are by my order.
[2017-10-09 11:01] VITALS: BP 152/65; PULSE 54; TEMP 36.8; O2SAT 99
[2017-10-09] MEDS ORDERED: FENTANYL CITRATE INJ 50 MCG/1 ML 2 ML VIAL ONE (11:11)
[2017-10-09] MEDS ORDERED: MIDAZOLAM HCL 1 MG/ML 2ML VIAL ONE (11:11)
[2017-10-09] MEDS ORDERED: LIDOCAINE HCL 1% 20 ML VIAL INJ ONE (11:26)
[2017-10-09] MEDS ORDERED: HydrALAZINE HCL 20 MG/ML VIAL ONE (11:27)
[2017-10-09] MEDS ORDERED: HydrALAZINE HCL 20 MG/ML VIAL IV. ONE (11:28)
[2017-10-09] MEDS ORDERED: MIDAZOLAM HCL 1 MG/ML 2ML VIAL IV ONE (11:31)
[2017-10-09] MEDS ORDERED: FENTANYL CITRATE INJ 50 MCG/1 ML 2 ML VIAL IV ONE (11:31)
--- NOTE | 2017-10-09 11:50 | Procedure Note ---
Post-Moderate Sedation Plan General Date of Moderate Sedation Oct 09, 2017. Vital Signs: Vital Signs Past 12 Hours Date Time Temp Pulse Resp B/P (MAP) Pulse Ox O2 Delivery O2 Flow Rate FiO2 10/09/17 11:01 36.8 54 18 152/65 99 Room Air 10/09/17 08:50 36.8 54 18 152/65 (94) 99 Room Air Review - Discharge Plan Post Moderate Sedation Plan: On clinical assessment, the patient appears to have tolerated the conscious sedation without complications. Patient is recovering as anticipated. Patient will continue to be monitored by nursing and may be discharged when conscious sedation discharge criteria are met.
--- NOTE | 2017-10-09 11:50 | [facility] Operative Report ---
Operative Report Operative Date Oct 09, 2017. Pre-Operative Diagnosis Malfunctioning Fistula Post-Operative Diagnosis Same Procedure(s) Performed Fistulogram Percutaneous Transluminal Angioplasty Venous Moderate Sedation [id number] 8 minutes Surgeon Vandana Sign Wirer Surgeon(s) None Estimated Blood Loss 3 Findings two venous aneurysms and stenosis between Specimens None Anesthesia Local with sedation Complication(s) None Disposition Indications This is a 72-year-old female with a left upper arm AV fistula. She is havoing difficulty at dialysis with runs. Fistulogram was recommended with possible intervention. I have discussed the risks options and benefits of the procedure with the patient's sister who is POA. The patient's sister understands the risks options and benefits and agrees to the procedure. Description of Procedure The patient was taken to the angiogram suite and placed in the supine position. The left arm was then prepped and draped in a sterile manner. Local anesthetic was administered and a percutaneous puncture was then made of the proximal portion of the left arm AV fistula using micropuncture technique. Micropuncture wire and sheath were then inserted. A fistulogram was then performed. The fistulogram showed 2 venous aneurysms in a dumbbell shape. There is a significant stenosis between these aneurysms. We then used an 035 Glidewire. The lesion was traversed. The micropuncture sheath was exchanged to a 5 Iraqi sheath. We then used a 6 x 4 balloon to expand the area between the aneurysms. There was still a significant residual left. We then exchanged the sheath to a 6 Iraqi sheath. We then used a 9 x 4 balloon to expand the area further. Fairly good results were seen. The stenotic area look much larger. There is a much better thrill. We decided not to do anything further this time. The venous aneurysms will need to be dealt with at a different time as a surgical procedure. The sheath was then pulled and pressure was applied. Adequate hemostasis was obtained. The patient left the angiogram suite in good condition and tolerated the procedure well. The patient left the angiogram suite in satisfactory condition and tolerated the procedure well. All needle and sponge counts were correct at the end of the procedure. I attest to the content of the Intraoperative Record and any orders documented therein. Any exceptions are noted below.
--- NOTE | 2017-10-09 11:51 | Discharge Instructions ---
Discharge Instructions Date of Service Oct 09, 2017. Visit Reason for Visit: End Stage Renal Disease Discharge Discharge Diagnosis / Problem: Malfunctioning fistula Discharge Goals Goal(s): Therapeutic intervention Activity Recommendations Activity Limitations: per Instructions/Follow-up section Anesthesia . Post Anesthesia Instructions: If you have had General Anesthesia or IV Sedation: * Do not drive today. * Resume driving when surgeon permits. * Do not make important decisions or sign legal documents today. * Call surgeon for: 1. Temperature elevations greater than 101 degrees F. 2. Uncontrollable pain. 3. Excessive bleeding. 4. Persistent nausea and vomiting. 5. Medication intolerance (nausea, vomiting or rash). * For nausea and vomiting use only clear liquids such as: tea, soda, bouillon until nausea subsides, then gradually increase diet as tolerated. * If you have any concerns or questions, call your surgeon's office. If physician is unavailable and it is an emergency, call 911 or go to the nearest emergency room. . Instructions / Follow-Up Instructions / Follow-Up Call [phone] to schedule a follow up appointment if one not already scheduled. SPECIAL CARE INSTRUCTIONS: Medications: * Continue to take your medications as directed. If you have been given a prescription for Plavix, please fill it immediately and take as directed. Incision Care: * Your puncture site may have some bruising and minor swelling for about one week. * You will have a small dressing covering your puncture site. You may remove the dressing after 24 hours and shower. You may let the warm soapy water run over it, but be sure to dry the puncture site well and keep it dry. * DO NOT IMMERSE THE INCISION IN A TUB/POOL/etc. UNTIL HEALED. * Puncture sites should be kept covered with a band-aid until it begins to heal. Restrictions: * Depending on whether you leg or arm was punctured to access the arteries, you will be required to lay flat, hold your arm still, or both, for about 4 hours after the procedure to prevent bleeding. * Limit your activity for the first 48 hours. You may walk and go up and down steps. Avoid excessive bending or movement at the puncture site. Possible Complications: * Excessive Swelling - after blood flow is improved you may notice increased swelling in the lower legs. This is a normal response. This usually depends on the amount of blockages in the leg, how long they have been there prior to your procedure and how much blood flow was restored. Elevating your legs will help to improve this. Please notify our office ([phone] ) if the swelling does not go away after lying in bed overnight. * Infection/Drainage/Bleeding - Drainage or bleeding from the puncture site should be minimal. If you have excessive bleeding or drainage, call our office ([phone]) right away. * Pain - You may experience some mild pain or soreness at your puncture site. If your pain does not improve, please contact our office ([phone]). Call your doctor and seek emergent treatment if you develop: * Temperature above 101 degrees * Any fever or chills * Any redness or purulent drainage from the puncture site * Any new dusky/blue colored toes or feet with coolness or sharp or aching pain. SKIN IRRITATION: * You may experience some redness and/or swelling in the area where radiation was administered. If any skin irritation occurs, please contact your family physician. FOLLOW UP VISIT: Keep any scheduled doctor appointments. Diet Recommendations Recommended Home Diet: resume previous diet Procedures Procedures Performed: Fistulogram Percutaneous Transluminal Angioplasty Venous Moderate Sedation [id number] 8 minutes Pending Studies Studies pending at discharge: no Medical Emergencies . Who to Call and When: Medical Emergencies: If at any time you feel your situation is an emergency, please call 911 immediately. . Non-Emergent Contact Non-Emergency issues call your: Surgeon . . "Provider Documentation" section prepared by Esdras Ross. .
[2017-10-09 11:55] VITALS: BP 184/48; PULSE 56; TEMP 36.8; O2SAT 99
[2017-10-09 12:25] VITALS: BP 164/48; PULSE 54; O2SAT 99
[2017-10-09 12:55] VITALS: BP 173/51; PULSE 54; TEMP 36.4; O2SAT 99
[2017-10-25] MEDS ORDERED: ALLO100T PO (07:45)
[2017-10-25] MEDS ORDERED: [UNRECOGNIZED DRUG - CODE] (07:45)
[2017-10-30] MEDS ORDERED: OXYC-57 PO (13:09)
== END 2017-10-30 15:40 ==
LOC: C.ACU 07:53
PROVIDERS: ATTEND Surgery Vascular Surgery
DX: I12.0 Hypertensive chronic kidney disease with stage 5 chronic kidney disease or end stage renal disease (principal); N18.6 End stage renal disease; I25.10 Atherosclerotic heart disease of native coronary artery without angina pectoris; J44.9 Chronic obstructive pulmonary disease, unspecified; E11.9 Type 2 diabetes mellitus without complications; E78.00 Pure hypercholesterolemia, unspecified; E78.5 Hyperlipidemia, unspecified; Z99.2 Dependence on renal dialysis; Z79.82 Long term (current) use of aspirin; Z90.49 Acquired absence of other specified parts of digestive tract; Z98.61 Coronary angioplasty status; Z82.49 Family history of ischemic heart disease and other diseases of the circulatory system

== ENCOUNTER → 2017-10-16 | Outpatient (CLI) | payer OTHER ==
[~2017-10-16] MED LIST changes: -CLINDAMYCIN 600 MG/54 ML D5W IV SCH; -D5W AND 1/4NSS 1000 ML IV SCH; +GUAI1TAB75 PO; +HYDR-5688 PO
[2017-10-16 08:59] LABS: BASO % 0.2 %; BASO ABS # 0.02 K/uL (0-0.2); COMPLETE YES; EOS % 1.4 %; HEMATOCRIT 31.7 % (37-47); IG% 0.2 %; LYMPH % 11.5 %; LYMPH ABS # 1.02 K/uL (1.2-3.4); MEAN CELL VOLUME 99.1 fL (80-100); MEAN CORPUSCULAR HEMOGLOBIN 30.6 pg (25-34); MEAN CORPUSCULAR HGB CONC 30.9 g/dl (32-36); MEAN PLATELET VOLUME 11.7 fL (7.4-10.4); MONO % 11.4 %; NEUT % 75.3 %; PLATELET COUNT 135 K/uL (130-400); WHITE BLOOD COUNT 8.84 K/uL (4.8-10.8)
[2017-10-16 09:04] LABS: BLOOD UREA NITROGEN 39 mg/dl (7-18); BUN/CREATININE RATIO 10.8 (10-20); CALCIUM 8.5 mg/dl (8.5-10.1); CARBON DIOXIDE 28 mmol/L (21-32); CHLORIDE 99 mmol/L (98-107); CREATININE 3.64 mg/dl (0.60-1.20); GLUCOSE 87 mg/dl (70-99); POTASSIUM 3.8 mmol/L (3.5-5.1); SODIUM 135 mmol/L (136-145)
[2017-10-16 09:09] LABS: INR 1.1 (0.9-1.1); PARTIAL THROMBOPLASTIN RATIO 1.3; PROTHROMBIN TIME (PATIENT) 11.5 SECONDS (9.0-12.0)
== END ==
LOC: C.LABUPNIT 08:29
PROVIDERS: ATTEND Nurse Practitioner Family
DX: I50.31 Acute diastolic (congestive) heart failure (principal)

== ENCOUNTER → 2017-10-20 | Outpatient (CLI) | payer OTHER ==
[~2017-10-20] MED LIST changes: +[UNRECOGNIZED DRUG - CODE]
[2017-10-20 07:13] LABS: BASO % 0.6 %; BASO ABS # 0.04 K/uL (0-0.2); COMPLETE YES; EOS % 3.5 %; IG% 0.5 %; LYMPH % 17.7 %; LYMPH ABS # 1.11 K/uL (1.2-3.4); MEAN CELL VOLUME 97.4 fL (80-100); MEAN CORPUSCULAR HEMOGLOBIN 30.5 pg (25-34); MEAN CORPUSCULAR HGB CONC 31.3 g/dl (32-36); MEAN PLATELET VOLUME 12.1 fL (7.4-10.4); MONO % 14.7 %; PLATELET COUNT 140 K/uL (130-400); RED BLOOD COUNT 3.08 M/uL (4.2-5.4); WHITE BLOOD COUNT 6.27 K/uL (4.8-10.8)
[2017-10-20 07:22] LABS: ALT/SGPT 20 U/L (12-78); AST/SGOT 19 U/L (15-37); BLOOD UREA NITROGEN 21 mg/dl (7-18); BUN/CREATININE RATIO 7.1 (10-20); CALCIUM 8.3 mg/dl (8.5-10.1); CARBON DIOXIDE 30 mmol/L (21-32); CHLORIDE 101 mmol/L (98-107); CREATININE 2.95 mg/dl (0.60-1.20); GLUCOSE 75 mg/dl (70-99); POTASSIUM 3.2 mmol/L (3.5-5.1); SODIUM 136 mmol/L (136-145)
[2017-10-20 07:24] LABS: ALB/GLOB RATIO 0.3 (0.9-2); ALKALINE PHOSPHATASE 166 U/L (45-117)
== END ==
LOC: C.LABUPUNI 09:51
PROVIDERS: ATTEND Nurse Practitioner Family
DX: R11.2 Nausea with vomiting, unspecified (principal)

== ENCOUNTER → 2017-10-30 | Day surgery (SDC) | payer OTHER ==
[2017-10-25 07:17] VITALS: Ht 165.1 cm; Wt 83.0 kg
--- NOTE | 2017-10-25 11:11 | PAT Medication Instructions ---
Service Date Oct 25, 2017. Current Home Medication List Acetaminophen (Tylenol), 650 MG RE Q6 Acetaminophen Tab (Tylenol), 650 MG PO Q6 PRN for Pain or Fever Albuterol Sulfate (Albuterol Sulfate), 1 VIAL NEB Q6 PRN for SOB/Wheezing Allopurinol (Zyloprim), 100 MG PO QAM Amiodarone Hcl (Cordarone), 200 MG PO QAM Aspirin (Aspirin 81), 81 MG PO DAILY Atorvastatin (Lipitor), 40 MG PO HS Clopidogrel (Plavix), 75 MG PO DAILY Escitalopram (Lexapro), 10 MG PO HS Escitalopram Oxalate (Lexapro), 5 MG PO HS Furosemide (Lasix), 30 MG PO BID Guaifenesin La (Guaifenesin Er), 600 MG PO Q12H Hydrocodone/Acetaminophen 5MG/325MG ([place] 5MG/325MG), 1 TABLET PO [id number] PRN for Pain Levothyroxine Sodium (Synthroid), 75 MCG PO DAILY Metoprolol Succ (Toprol Xl) (Toprol-Xl), 12.5 MG PO BID Mirtazapine (Mirtazapine), 7.5 MG PO HS Omeprazole (Prilosec), 40 MG PO DAILY Ondansetron Hcl (Zofran), 4 MG PO Q6 PRN for Nausea Polyethylene Glycol 3350 (Miralax), 17 GM PO BID Sevelamer Carbonate (Renvela), 1,600 MG PO TIDM Sevelamer Carbonate (Renvela), 800 MG PO UD Tolnaftate (Tolnaftate), 1 APPLN TOP BID Umeclidinium Rough And Ready (Incruse Ellipta), 1 PUFF INH DAILY Vitamin B Cmplx/Vitc/Folic Ac (Nephrocaps), 1 CAP PO DAILY [Barrier Cream], 1 APPLN TOP QS PRN for PREVENT SKIN BREAKDOWN [Supplement Shake], 1 PO 3XWK Medication Instructions For Your Scheduled Surgery - Check with surgeon and prescribing physician for instructions: Clopidogrel (Plavix), 75 MG PO DAILY Aspirin (Aspirin 81), 81 MG PO DAILY - Hold the following medications 24 hours prior to surgery: [Barrier Cream], 1 APPLN TOP QS PRN for PREVENT SKIN BREAKDOWN Tolnaftate (Tolnaftate), 1 APPLN TOP BID - Hold the following medications the morning of surgery: Furosemide (Lasix), 30 MG PO BID Guaifenesin La (Guaifenesin Er), 600 MG PO Q12H Polyethylene Glycol 3350 (Miralax), 17 GM PO BID Vitamin B Cmplx/Vitc/Folic Ac (Nephrocaps), 1 CAP PO DAILY [Supplement Shake], 1 PO 3XWK - Take the following medications the morning of surgery with a sip of water: Umeclidinium Rough And Ready (Incruse Ellipta), 1 PUFF INH DAILY Acetaminophen (Tylenol), 650 MG RE Q6 (okay to take up to 4 hours prior to surgery if needed) Acetaminophen Tab (Tylenol), 650 MG PO Q6 PRN for Pain or Fever (okay to take up to 4 hours prior to surgery if needed) Sevelamer Carbonate (Renvela), 800 MG PO UD Sevelamer Carbonate (Renvela), 1,600 MG PO TIDM Omeprazole (Prilosec), 40 MG PO DAILY Ondansetron Hcl (Zofran), 4 MG PO Q6 PRN for Nausea (if needed) Metoprolol Succ (Toprol Xl) (Toprol-Xl), 12.5 MG PO BID Levothyroxine Sodium (Synthroid), 75 MCG PO DAILY Hydrocodone/Acetaminophen 5MG/325MG ([place] 5MG/325MG), 1 TABLET PO [id number] PRN for Pain (okay to take up to 4 hours prior to surgery if needed) Allopurinol (Zyloprim), 100 MG PO QAM Amiodarone Hcl (Cordarone), 200 MG PO QAM Albuterol Sulfate (Albuterol Sulfate), 1 VIAL NEB Q6 PRN for SOB/Wheezing (if needed) If you have any questions please call us at [phone] or [phone] or [phone]
[~2017-10-30] VITALS: Ht 165.1 cm; Wt 83.0 kg
[~2017-10-30] MED LIST changes: +BUPIVACAINE/EPINEPHRINE 0.5% MPF 1:200,000 30 ML VIAL ONE; +CLINDAMYCIN 600 MG/54 ML D5W IV SCH; +FENTANYL CITRATE INJ 50 MCG/1 ML 2 ML VIAL ONE; +GELATIN SPONGE 12-7MM ONE; +HEPARIN SOD (PORCINE) 1000 UNIT/ML 10 ML VIAL ONE; +LIDOCAINE HCL 1% 20 ML VIAL ONE; +LIDOCAINE HCL 2% 2 ML VIAL (20MG/ML) ONE; +MIDAZOLAM HCL 1 MG/ML 2ML VIAL ONE; +OXYC-57 PO; +PROPOFOL IV EMULSION 10 MG/ML 20 ML VIAL IV ONE; +SODIUM CHLORIDE 0.9% 1000ML 1,000 ML IV SCH; +THROMBIN FOR SOLN 20000 UNIT KIT ONE; -[UNRECOGNIZED DRUG - CODE]
--- NOTE | 2017-10-30 06:10 | History and Physical ---
History & Physical Date of Service Oct 30, 2017. History & Physical CC: ESRD, malfunctioning LUE AVF History of Present Illness The patient is a 72 year old female with multiple medical problems, including ESRD on HD, CAD, COPD, HTN, hyperlipidemia, etc, seen today for malfunctioning LUE AVF at HD. 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 Pt has dementia and unable to provide reliable hx, so most of HPI obtained from prior documentation. Per HD unit, pt with elevated venous pressures and requested fistulagram to evaluate. Otherwise, pt appears to be doing ok and denies any other complaints. 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 Home Medications Scheduled Acetaminophen (Tylenol), 650 MG RE Q6 Allopurinol (Zyloprim), 100 MG PO DAILY Amiodarone Hcl (Cordarone), 200 MG PO DAILY Aspirin (Aspirin 81), 81 MG PO DAILY Atorvastatin (Lipitor), 40 MG PO HS Clopidogrel (Plavix), 75 MG PO DAILY Escitalopram (Lexapro), 10 MG PO HS Escitalopram Oxalate (Lexapro), 5 MG PO HS Furosemide (Lasix), 30 MG PO BID Levothyroxine Sodium (Synthroid), 75 MCG PO DAILY Metoprolol Succ (Toprol Xl) (Toprol-Xl), 12.5 MG PO BID Mirtazapine (Mirtazapine), 7.5 MG PO HS Omeprazole (Prilosec), 40 MG PO DAILY Polyethylene Glycol 3350 (Miralax), 17 GM PO BID Sevelamer Carbonate (Renvela), 1,600 MG PO TIDM Sevelamer Carbonate (Renvela), 800 MG PO UD Tolnaftate (Tolnaftate), 1 APPLN TOP BID Umeclidinium [place] (Incruse Ellipta), 1 PUFF INH DAILY Vitamin B Cmplx/Vitc/Folic Ac (Nephrocaps), 1 CAP PO DAILY [Supplement Shake], 1 PO 3XWK Scheduled PRN Acetaminophen Tab (Tylenol), 650 MG PO Q6 PRN for Pain or Fever Albuterol Sulfate (Albuterol Sulfate), 1 VIAL NEB Q6 PRN for SOB/Wheezing Ondansetron Hcl (Zofran), 4 MG PO Q6 PRN for Nausea [Barrier Cream], 1 APPLN TOP QS PRN for PREVENT SKIN BREAKDOWN Problem List Medical Problems: (1) Altered mental status (2) CAD (coronary artery disease) (3) Cellulitis of left lower extremity without foot (4) COPD (chronic obstructive pulmonary disease) (5) Depression (6) Diabetes mellitus type 2 in obese (7) Diastolic CHF (8) Dyslipidemia (9) Elevated troponin (10) End stage renal disease (11) End-stage renal disease on hemodialysis (12) ESRD (end stage renal disease) (13) Gout (14) HTN (hypertension) (15) Hyperkalemia (16) Hypothyroidism (17) 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 (18) Loss of consciousness (19) PAF (paroxysmal atrial fibrillation) (20) Pneumonia (21) Pseudomonas urinary tract infection (22) Recurrent epistaxis (23) Sepsis (24) Syncope (25) Syncope (26) UTI (urinary tract infection) Surgical Problems: (1) bilat ankle surgery (2) Hernia, abdominal (3) History of appendectomy (4) Nasal septoplasty (5) Repair of rotator cuff by suture (6) right elbow surgery Surgical / Medical History Hx Cardiac Surgery: Yes (angioplasty, stent) Hx Abdominal Surgery: Yes (appy, hernia repair) Hx Cancer Surgery: No Hx Thoracic Surgery: No Hx Orthopedic: Yes (BILATERAL ANKLE, ROTATOR CUFF, RIGHT ELBOW) Hx Urinary Tract Surgery: No Past Medical/Surgical History: Alzheimer's, CHF, COPD, Depression, Diabetes, Heart Disease, High Cholesterol, Hypertension, Kidney Disease, Thyroid Disease Family History Cancer Heart disease Hypertension Social History Smoking Status: Never Smoker Hx Tobacco Use In Past Year?: No Hx Alcohol Use - Type & Amnt: No Hx Substance Use -Type & Amnt: No Review of Systems Constitutional: No chills, No malaise Skin: No change in color Eyes: No visual changes ENMT: No sore throat Respiratory: No cough, No short of breath Cardiovascular: No chest pain, No palpitations, No syncope, No edema Gastrointestinal: No abdominal pain, No nausea, No vomiting Genitourinary - Female: No dysuria, No hematuria Additional Comments: Pt unreliable historian d/t dementia. Physical Exam Constitutional: General Apperance: well-nourished, well-developed Level of Distress: NAD, chronically ill Psychiatric: Mental Status: active & alert, normal mood, normal affect Orientation: to person, not oriented to time, not oriented to place Memory: recent memory abnormal, remote memory abnormal Head: normocephalic, atraumatic Eyes: EOM: EOMI ENMT: normal ENT inspection, hearing grossly normal Neck: supple, trachea midline Lungs: Respiratory effort: no dyspnea Auscultation: no rales/crackles, no rhonchi, decreased breath sounds Cardiovascular: Apical Impulse: not displaced Heart Auscultation: RRR, no rubs, no gallops Peripheral Pulses: Pulses: full and equal, in all extremities except if noted Bruits: none appreciated Carotid Pulse: normal on the left, normal on the right Brachial Pulses: normal on the left, normal on the right, pertinent finding (LUE AVF with good thrill/bruit) Radial Pulse: normal on the left, normal on the right Posterior Tibialis Pulse: decreased on the left, decreased on the right Dorsalis Pedis Pulse: decreased on the left, decreased on the right Abdomen: Inspection & Palpation: soft, non-distended, no tenderness, guarding & rebound Musculoskeletal: normal strength (5/5 throughout), normal tone Extremities: Upper Right: no cyanosis, no edema, no varicosities Upper Left: no cyanosis, no edema, no varicosities Lower Right: no cyanosis, no edema, no varicosities Lower Left: no cyanosis, no edema, no varicosities Neurologic: Cranial Nerves: grossly intact Assessment and Plan ASSESSMENT and PLAN: ESRD on HD Pt for LUE fistula revision. I have discussed the risks options and benefits of the procedure with the patient's sister, who is her POA. The patient's sister understands the risks options and benefits and agrees to the procedure.
[2017-10-30 09:08] VITALS: BP 165/59; PULSE 55; TEMP 36.8; O2SAT 91
--- NOTE | 2017-10-30 09:26 | History & Physical Bridge Note ---
H&P Re-Evaluation Bridge Note: I have examined the patient, reviewed the History & Physical and in the interval since the performance of the History & Physical I have noted the following changes of clinical significance: No changes noted
[2017-10-30 10:15] LABS: BUN/CREATININE RATIO 9.5 (10-20); CALCIUM 8.1 mg/dl (8.5-10.1); CREATININE 3.3 mg/dl (0.60-1.20); POTASSIUM 3.6 mmol/L (3.5-5.1)
--- NOTE | 2017-10-30 13:07 | [facility] Post Operative Brief Note ---
Immediate Operative Summary Operative Date Oct 30, 2017. Pre-Operative Diagnosis Malfunctioning left upper arm av fistula Post-Operative Diagnosis Same Procedure(s) Performed Revision of left upper arm av fistula with venorrhaphy Surgeon marisa Hose Seamer Surgeon(s) Lexis Bey MD, Joi Mcghee, PAC Estimated Blood Loss 15 Findings good thrill Specimens none Anesthesia MAC Complication(s) None Disposition Recovery Room / PACU
--- NOTE | 2017-10-30 13:10 | Discharge Instructions ---
Discharge Instructions Date of Service Oct 30, 2017. Visit Reason for Visit: End State Renal Disease On Hemodialysis Discharge Discharge Diagnosis / Problem: Malfunctioning fistla left arm Discharge Goals Goal(s): Therapeutic intervention Activity Recommendations Activity Limitations: per Instructions/Follow-up section Anesthesia . Post Anesthesia Instructions: If you have had General Anesthesia or IV Sedation: * Do not drive today. * Resume driving when surgeon permits. * Do not make important decisions or sign legal documents today. * Call surgeon for: 1. Temperature elevations greater than 101 degrees F. 2. Uncontrollable pain. 3. Excessive bleeding. 4. Persistent nausea and vomiting. 5. Medication intolerance (nausea, vomiting or rash). * For nausea and vomiting use only clear liquids such as: tea, soda, bouillon until nausea subsides, then gradually increase diet as tolerated. * If you have any concerns or questions, call your surgeon's office. If physician is unavailable and it is an emergency, call 911 or go to the nearest emergency room. . Instructions / Follow-Up Instructions / Follow-Up Call [phone] to schedule a follow up appointment if one not already scheduled. May use fistula above incision for two weeks ACTIVITY RECOMMENDATIONS: See Above SPECIAL CARE INSTRUCTIONS: Call your doctor if: * Temperature above 101 degrees * Pain not relieved by pain medicine ordered * There is increased drainage or redness from any incision * You have any unanswered questions or concerns. Diet Recommendations Recommended Home Diet: resume previous diet Procedures Procedures Performed: Revision of left upper arm av fistula with venorrhaphy Pending Studies Studies pending at discharge: no Medical Emergencies . Who to Call and When: Medical Emergencies: If at any time you feel your situation is an emergency, please call 911 immediately. . Non-Emergent Contact Non-Emergency issues call your: Surgeon . . "Provider Documentation" section prepared by Esdras Ross. .
--- NOTE | 2017-10-30 13:50 | Anesthesiology Progress Note ---
Anesthesia Post Op Note Date & Time Oct 30, 2017 at 13:49 Vital Signs Pain Intensity: 0 Vital Signs Past 12 Hours Date Time Temp Pulse Resp B/P (MAP) Pulse Ox O2 Delivery O2 Flow Rate FiO2 10/30/17 09:08 36.8 55 18 165/59 (94) 91 Room Air Notes Mental Status: alert / awake / arousable, participated in evaluation Pt Amnestic to Procedure: Yes Nausea / Vomiting: adequately controlled Pain: adequately controlled Airway Patency, RR, SpO2: stable & adequate BP & HR: stable & adequate Hydration State: stable & adequate Anesthetic Complications: no major complications apparent
--- NOTE | 2017-10-30 14:07 | OPERATIVE REPORT ---
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 POSTOPERATIVE DIAGNOSIS: Same. PROCEDURE: Left upper extremity AV fistula revision with venorrhaphy. SURGEON: Dr. Esdras Ross. PATTERN WEAVER: Dr. Katina Bey and Joi Mcghee PA-C. ANESTHESIA: Local plus conscious sedation. ESTIMATED BLOOD LOSS: 15. COMPLICATIONS: None apparent. CONDITION: Stable to recovery room. INDICATIONS: This is an 72-year-old female who has end-stage renal disease and dialyzes Sunday, Sunday, Sunday who has a left upper extremity AV fistula whose left upper extremity brachiocephalic fistula has aneurysmal degeneration of its proximal portion. The risks and benefits of undergoing a revision were explained to her sister as her sister is the POA and the patient has dementia. They agreed to undergo the above procedure. PROCEDURE: The patient was brought into the operative suite. She was placed in supine position. A timeout occurred. She was prepped and draped in the usual manner. Local was instilled along the length of her aneurysm. An incision was made lateral to her aneurysm and an ellipse incision was made in the skin above the aneurysm. The aneurysm itself was dissected. There was 1 large branch which was tied off. Proximal and distal control was obtained. A venotomy was made in the lateral side of the fistula. This was extended with Rice scissors. This was teed off at the ends. A 28 chest tube was used as a guide to revise the fistula. Excess aneurismal vein was divided. It was sewn back and fistula were sewn back together around the chest tube with a running 5-0 suture. The chest tube was removed at the end. Prior to clamping of the fistula the patient was instilled with 3000 heparin. Once the anastomosis was completed the clamps were removed. The vein was inspected for hemostasis. Repair sutures were placed and the wound was closed. There continued to be a significant amount of ooze so the wound was reopened. The lateral side of the branch that was tied off continued to ooze so a 3-0 Vicryl was placed in this. The wound was then closed with 3-0 Vicryl and aly. The patient tolerated the procedure well. Dr. Esdras Ross was scrubbed and present for the entirety of this case. I attest to the content of the Intraoperative Record and any orders documented therein. Any exception s are noted below.
[2017-10-30 14:30] VITALS: BP 165/55; PULSE 55; TEMP 36.5; O2SAT 98
[2017-10-30 15:00] VITALS: BP 143/64; PULSE 65; TEMP 36.5; O2SAT 98
== END | disposition home or self-care (01) ==
LOC: C.OR 07:51
PROVIDERS: ATTEND Surgery Vascular Surgery
DX: T82.898A Other specified complication of vascular prosthetic devices, implants and grafts, initial encounter (principal); Y84.8 Other medical procedures as the cause of abnormal reaction of the patient, or of later complication, without mention of misadventure at the time of the procedure; N18.6 End stage renal disease; Z99.2 Dependence on renal dialysis; I73.9 Peripheral vascular disease, unspecified; I25.10 Atherosclerotic heart disease of native coronary artery without angina pectoris; J44.9 Chronic obstructive pulmonary disease, unspecified; I11.0 Hypertensive heart disease with heart failure; E78.5 Hyperlipidemia, unspecified; F03.90 Unspecified dementia, unspecified severity, without behavioral disturbance, psychotic disturbance, mood disturbance, and anxiety; E11.22 Type 2 diabetes mellitus with diabetic chronic kidney disease; I50.30 Unspecified diastolic (congestive) heart failure; I48.0 Paroxysmal atrial fibrillation; I25.2 Old myocardial infarction; F32.9 Major depressive disorder, single episode, unspecified; F41.9 Anxiety disorder, unspecified; Z79.82 Long term (current) use of aspirin; Z79.02 Long term (current) use of antithrombotics/antiplatelets; Z79.899 Other long term (current) drug therapy; Z88.0 Allergy status to penicillin; Z90.89 Acquired absence of other organs; Z80.9 Family history of malignant neoplasm, unspecified; Z82.49 Family history of ischemic heart disease and other diseases of the circulatory system

== ENCOUNTER → 2017-10-31 | Outpatient (CLI) | payer OTHER ==
[~2017-10-31] MED LIST changes: -BUPIVACAINE/EPINEPHRINE 0.5% MPF 1:200,000 30 ML VIAL ONE; -CLINDAMYCIN 600 MG/54 ML D5W IV SCH; -FENTANYL CITRATE INJ 50 MCG/1 ML 2 ML VIAL ONE; -GELATIN SPONGE 12-7MM ONE; -HEPARIN SOD (PORCINE) 1000 UNIT/ML 10 ML VIAL ONE; -LIDOCAINE HCL 1% 20 ML VIAL ONE; -LIDOCAINE HCL 2% 2 ML VIAL (20MG/ML) ONE; -MIDAZOLAM HCL 1 MG/ML 2ML VIAL ONE; -PROPOFOL IV EMULSION 10 MG/ML 20 ML VIAL IV ONE; -SODIUM CHLORIDE 0.9% 1000ML 1,000 ML IV SCH; -THROMBIN FOR SOLN 20000 UNIT KIT ONE
== END ==
LOC: C.LABUPUNI 11:23
PROVIDERS: ATTEND Nurse Practitioner Family
DX: N18.6 End stage renal disease (principal)

== ENCOUNTER → 2017-11-01 | Outpatient (CLI) | payer OTHER ==
[~2017-11-01] MED LIST changes: +ACET-1693 PO; +ACET-24 PO; -ACET325T96 PO; +ATOR-24 PO; -B-CO1CAP17 PO; +B-COCAP2 PO; +BISA10SU38 PR; +BISA1TAB15 PO; +BISA1TAB25 PO; +CAL PO; +CYM/30 PO; +DEXT40GE PO; +DRGTP12 TD; +FENT1DIS85 TOP; +FNTTP50 TD; +GLGKIT IM; +GUAI100S66 PO; +HYDR-3983 PO; +HYDR-4079 PO; +IMIP1INJ IV; +LSN10 PO; +MAGN1SOL7 PO; +MAGNSOL18 PO; +MULT-190 PO; +MULTCAP33 PO; +NUTR-7 PO; +SALI-3 NAE; +SENN-65 PO; +SODI1ENE RE; +[UNRECOGNIZED DRUG - CODE] IV; +[UNRECOGNIZED DRUG - OTHER] PO; +[UNRECOGNIZED DRUG - OTHER] PR; +[UNRECOGNIZED DRUG - REMARK]; +antifungal TOP; +liquid protein PO
[2017-11-01 09:02] LABS: BLOOD UREA NITROGEN 53 mg/dl (7-18); CALCIUM 7.9 mg/dl (8.5-10.1); CARBON DIOXIDE 29 mmol/L (21-32); CREATININE 5.41 mg/dl (0.60-1.20); GLUCOSE 102 mg/dl (70-99); POTASSIUM 4.3 mmol/L (3.5-5.1); SODIUM 139 mmol/L (136-145)
== END | disposition home or self-care (01) ==
LOC: C.LABUPUNI 08:11
PROVIDERS: ATTEND Nurse Practitioner Family
DX: N18.6 End stage renal disease (principal); I12.0 Hypertensive chronic kidney disease with stage 5 chronic kidney disease or end stage renal disease; Z99.2 Dependence on renal dialysis

== ENCOUNTER → 2017-11-02 | Day surgery (SDC) | payer OTHER ==
[~2017-11-02] VITALS: Ht 170.2 cm; Wt 83.5 kg
[~2017-11-02] MED LIST changes: -ACET-1693 PO; -ACET-24 PO; +ACET325T96 PO; -ATOR-24 PO; +ATROPINE SULFATE 0.1 MG/ML 5ML SYR IV PRN; +B-CO1CAP17 PO; -B-COCAP2 PO; -BISA10SU38 PR; -BISA1TAB15 PO; -BISA1TAB25 PO; -CAL PO; +CLINDAMYCIN 600 MG/54 ML D5W IV SCH; -CYM/30 PO; +D5W AND 1/4NSS 1000 ML IV SCH; -DEXT40GE PO; -DRGTP12 TD; +EpHEDrine SULFATE INJ 50 MG/ML AMP IV PRN; -FENT1DIS85 TOP; +FENTANYL CITRATE INJ 50 MCG/1 ML 2 ML VIAL IV PRN; +FENTANYL CITRATE INJ 50 MCG/1 ML 2 ML VIAL ONE; -FNTTP50 TD; -GLGKIT IM; -GUAI100S66 PO; +HEPARIN SOD (PORCINE) 5000 UNIT/ML 1 ML VIAL IV ONE; +HEPARIN SOD (PORCINE) 5000 UNIT/ML 1 ML VIAL ONE; -HYDR-3983 PO; -HYDR-4079 PO; +HYDROmorphone INJ 1 MG/ML SYR IV PRN; -IMIP1INJ IV; +LABETALOL HCL IV 5 MG/ML 20ML IV PRN; +LIDOCAINE HCL 1% 20 ML VIAL SQ ONE; -LSN10 PO; -MAGN1SOL7 PO; -MAGNSOL18 PO; +MEPERIDINE HCL 25 MG/ML CARP IV PRN; +MIDAZOLAM HCL 1 MG/ML 2ML VIAL ONE; -MULT-190 PO; -MULTCAP33 PO; -NUTR-7 PO; +ONDANSETRON INJ 2 MG/ML 2 ML VIAL IV PRN; -SALI-3 NAE; -SENN-65 PO; -SODI1ENE RE; +SODIUM CHLORIDE 0.9% 1000ML 1,000 ML IV SCH; -[UNRECOGNIZED DRUG - CODE] IV; -[UNRECOGNIZED DRUG - OTHER] PO; -[UNRECOGNIZED DRUG - OTHER] PR; -[UNRECOGNIZED DRUG - REMARK]; -antifungal TOP; -liquid protein PO
--- NOTE | 2017-11-02 06:58 | History and Physical ---
History & Physical Date of Service Nov 02, 2017. History & Physical CC: ESRD, infiltration of her LUE AVF History of Present Illness The patient is a 72 year old female with multiple medical problems, including ESRD on HD, CAD, COPD, HTN, hyperlipidemia, etc, seen today for malfunctioning LUE AVF at HD. 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 Pt has dementia and unable to provide reliable hx, so most of HPI obtained from prior documentation. Per HD unit, pt with elevated venous pressures and requested fistulagram to evaluate. She had a revision of her fistula with a venorrhaphy. At dialysis post op she infiltrated her upper arm. The fistula can not be used and the arm needs to be rested for a short time. Permcath insertion is recommended in the meantime for dialysis. 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 Home Medications Scheduled Acetaminophen (Tylenol), 650 MG RE Q6 Allopurinol (Zyloprim), 100 MG PO DAILY Amiodarone Hcl (Cordarone), 200 MG PO DAILY Aspirin (Aspirin 81), 81 MG PO DAILY Atorvastatin (Lipitor), 40 MG PO HS Clopidogrel (Plavix), 75 MG PO DAILY Escitalopram (Lexapro), 10 MG PO HS Escitalopram Oxalate (Lexapro), 5 MG PO HS Furosemide (Lasix), 30 MG PO BID Levothyroxine Sodium (Synthroid), 75 MCG PO DAILY Metoprolol Succ (Toprol Xl) (Toprol-Xl), 12.5 MG PO BID Mirtazapine (Mirtazapine), 7.5 MG PO HS Omeprazole (Prilosec), 40 MG PO DAILY Polyethylene Glycol 3350 (Miralax), 17 GM PO BID Sevelamer Carbonate (Renvela), 1,600 MG PO TIDM Sevelamer Carbonate (Renvela), 800 MG PO UD Tolnaftate (Tolnaftate), 1 APPLN TOP BID Umeclidinium [place] (Incruse Ellipta), 1 PUFF INH DAILY Vitamin B Cmplx/Vitc/Folic Ac (Nephrocaps), 1 CAP PO DAILY [Supplement Shake], 1 PO 3XWK Scheduled PRN Acetaminophen Tab (Tylenol), 650 MG PO Q6 PRN for Pain or Fever Albuterol Sulfate (Albuterol Sulfate), 1 VIAL NEB Q6 PRN for SOB/Wheezing Ondansetron Hcl (Zofran), 4 MG PO Q6 PRN for Nausea [Barrier Cream], 1 APPLN TOP QS PRN for PREVENT SKIN BREAKDOWN Problem List Medical Problems: (1) Altered mental status (2) CAD (coronary artery disease) (3) Cellulitis of left lower extremity without foot (4) COPD (chronic obstructive pulmonary disease) (5) Depression (6) Diabetes mellitus type 2 in obese (7) Diastolic CHF (8) Dyslipidemia (9) Elevated troponin (10) End stage renal disease (11) End-stage renal disease on hemodialysis (12) ESRD (end stage renal disease) (13) Gout (14) HTN (hypertension) (15) Hyperkalemia (16) Hypothyroidism (17) 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 (18) Loss of consciousness (19) PAF (paroxysmal atrial fibrillation) (20) Pneumonia (21) Pseudomonas urinary tract infection (22) Recurrent epistaxis (23) Sepsis (24) Syncope (25) Syncope (26) UTI (urinary tract infection) Surgical Problems: (1) bilat ankle surgery (2) Hernia, abdominal (3) History of appendectomy (4) Nasal septoplasty (5) Repair of rotator cuff by suture (6) right elbow surgery Surgical / Medical History Hx Cardiac Surgery: Yes (angioplasty, stent) Hx Abdominal Surgery: Yes (appy, hernia repair) Hx Cancer Surgery: No Hx Thoracic Surgery: No Hx Orthopedic: Yes (BILATERAL ANKLE, ROTATOR CUFF, RIGHT ELBOW) Hx Urinary Tract Surgery: No Past Medical/Surgical History: Alzheimer's, CHF, COPD, Depression, Diabetes, Heart Disease, High Cholesterol, Hypertension, Kidney Disease, Thyroid Disease Family History Cancer Heart disease Hypertension Social History Smoking Status: Never Smoker Hx Tobacco Use In Past Year?: No Hx Alcohol Use - Type & Amnt: No Hx Substance Use -Type & Amnt: No Review of Systems Constitutional: No chills, No malaise Skin: No change in color Eyes: No visual changes ENMT: No sore throat Respiratory: No cough, No short of breath Cardiovascular: No chest pain, No palpitations, No syncope, No edema Gastrointestinal: No abdominal pain, No nausea, No vomiting Genitourinary - Female: No dysuria, No hematuria Additional Comments: Pt unreliable historian d/t dementia. Physical Exam Constitutional: General Apperance: well-nourished, well-developed Level of Distress: NAD, chronically ill Psychiatric: Mental Status: active & alert, normal mood, normal affect Orientation: to person, not oriented to time, not oriented to place Memory: recent memory abnormal, remote memory abnormal Head: normocephalic, atraumatic Eyes: EOM: EOMI ENMT: normal ENT inspection, hearing grossly normal Neck: supple, trachea midline Lungs: Respiratory effort: no dyspnea Auscultation: no rales/crackles, no rhonchi, decreased breath sounds Cardiovascular: Apical Impulse: not displaced Heart Auscultation: RRR, no rubs, no gallops Peripheral Pulses: Pulses: full and equal, in all extremities except if noted Bruits: none appreciated Carotid Pulse: normal on the left, normal on the right Brachial Pulses: normal on the left, normal on the right, pertinent finding (LUE AVF with good thrill/bruit) Radial Pulse: normal on the left, normal on the right Posterior Tibialis Pulse: decreased on the left, decreased on the right Dorsalis Pedis Pulse: decreased on the left, decreased on the right Abdomen: Inspection & Palpation: soft, non-distended, no tenderness, guarding & rebound Musculoskeletal: normal strength (5/5 throughout), normal tone Extremities: Upper Right: no cyanosis, no edema, no varicosities Upper Left: no cyanosis, no edema, no varicosities, infiltration seen of the left upper arm Lower Right: no cyanosis, no edema, no varicosities Lower Left: no cyanosis, no edema, no varicosities Neurologic: Cranial Nerves: grossly intact Assessment and Plan ASSESSMENT and PLAN: ESRD on HD Left arm infiltration Plan: The patient is admitted for an insertion of a permcath. I have discussed the risks options and benefits of the procedure with the patient's sister, who is her POA. The patient's sister understands the risks options and benefits and agrees to the procedure.
[2017-11-02 08:45] VITALS: BP 196/82; PULSE 58; TEMP 36.7; O2SAT 91; Ht 170.2 cm; Wt 83.5 kg
[2017-11-02 09:44] LABS: BUN/CREATININE RATIO 11.6 (10-20); CALCIUM 7.8 mg/dl (8.5-10.1); CREATININE 6.64 mg/dl (0.60-1.20); POTASSIUM 4.3 mmol/L (3.5-5.1)
--- NOTE | 2017-11-02 10:19 | [facility] Post Operative Brief Note ---
Immediate Operative Summary Operative Date Nov 02, 2017. Pre-Operative Diagnosis Access Infiltration Post-Operative Diagnosis Same Procedure(s) Performed Insertion of Perm Catheter, Right Internal Jugular Approach, Ultrasound Localization of Right Internal Jugular Vein, Fluoroscopy for positioning. Surgeon Dr. Ross Metal Tube Cutter Surgeon(s) None Estimated Blood Loss 10 Findings tip in distal SVC Specimens None Anesthesia Local with sedation Complication(s) None Disposition
--- NOTE | 2017-11-02 10:21 | Discharge Instructions ---
Discharge Instructions Date of Service Nov 02, 2017. Visit Reason for Visit: End Stage Renal Disease Discharge Discharge Diagnosis / Problem: Left arm infiltration Discharge Goals Goal(s): Therapeutic intervention Activity Recommendations Activity Limitations: per Instructions/Follow-up section Anesthesia . Post Anesthesia Instructions: If you have had General Anesthesia or IV Sedation: * Do not drive today. * Resume driving when surgeon permits. * Do not make important decisions or sign legal documents today. * Call surgeon for: 1. Temperature elevations greater than 101 degrees F. 2. Uncontrollable pain. 3. Excessive bleeding. 4. Persistent nausea and vomiting. 5. Medication intolerance (nausea, vomiting or rash). * For nausea and vomiting use only clear liquids such as: tea, soda, bouillon until nausea subsides, then gradually increase diet as tolerated. * If you have any concerns or questions, call your surgeon's office. If physician is unavailable and it is an emergency, call 911 or go to the nearest emergency room. . Instructions / Follow-Up Instructions / Follow-Up Take this to dialysis and give to the dialysis nurses May use [facility] for dialysis Call [phone] to schedule a follow up appointment if one not already scheduled. SPECIAL CARE INSTRUCTIONS: Medications: * Continue to take your medications as directed. If you have been given a prescription for Plavix, please fill it immediately and take as directed. Incision Care: * Your puncture site may have some bruising and minor swelling for about one week. * You will have a small dressing covering your puncture site. You may remove the dressing after 24 hours and shower. You may let the warm soapy water run over it, but be sure to dry the puncture site well and keep it dry. * DO NOT IMMERSE THE INCISION IN A TUB/POOL/etc. UNTIL HEALED. * Puncture sites should be kept covered with a band-aid until it begins to heal. Restrictions: * Depending on whether you leg or arm was punctured to access the arteries, you will be required to lay flat, hold your arm still, or both, for about 4 hours after the procedure to prevent bleeding. * Limit your activity for the first 48 hours. You may walk and go up and down steps. Avoid excessive bending or movement at the puncture site. Possible Complications: * Excessive Swelling - after blood flow is improved you may notice increased swelling in the lower legs. This is a normal response. This usually depends on the amount of blockages in the leg, how long they have been there prior to your procedure and how much blood flow was restored. Elevating your legs will help to improve this. Please notify our office ([phone] ) if the swelling does not go away after lying in bed overnight. * Infection/Drainage/Bleeding - Drainage or bleeding from the puncture site should be minimal. If you have excessive bleeding or drainage, call our office ([phone]) right away. * Pain - You may experience some mild pain or soreness at your puncture site. If your pain does not improve, please contact our office ([phone]). Call your doctor and seek emergent treatment if you develop: * Temperature above 101 degrees * Any fever or chills * Any redness or purulent drainage from the puncture site * Any new dusky/blue colored toes or feet with coolness or sharp or aching pain. SKIN IRRITATION: * You may experience some redness and/or swelling in the area where radiation was administered. If any skin irritation occurs, please contact your family physician. FOLLOW UP VISIT: Keep any scheduled doctor appointments. Diet Recommendations Recommended Home Diet: resume previous diet Procedures Procedures Performed: Insertion of Perm Catheter, Right Internal Jugular Approach, Ultrasound Localization of Right Internal Jugular Vein, Fluoroscopy for positioning. Pending Studies Studies pending at discharge: no Medical Emergencies . Who to Call and When: Medical Emergencies: If at any time you feel your situation is an emergency, please call 911 immediately. . Non-Emergent Contact Non-Emergency issues call your: Surgeon . . "Provider Documentation" section prepared by Esdras Ross. .
--- NOTE | 2017-11-02 10:22 | [facility] Operative Report ---
Operative Report Operative Date Nov 02, 2017. Pre-Operative Diagnosis Access Infiltration Post-Operative Diagnosis Same Procedure(s) Performed Insertion of Perm Catheter, Right Internal Jugular Approach, Ultrasound Localization of Right Internal Jugular Vein, Fluoroscopy for positioning. Surgeon Dr. Ross Corn Detasseler Surgeon(s) None Estimated Blood Loss 10 Findings Tip of the catheter was in the distal superior vena cava. Specimens None Anesthesia Local with sedation Complication(s) None Disposition Indications This is a 72-year-old female who had an infiltration of her left upper arm fistula and cannot be used. PermCath was recommended. I have discussed the risks options and benefits of the procedure with the patient. The patient understands the risks options and benefits and agrees to the procedure. Description of Procedure Patient was takent to the angio suite and placed in the supine position. The right side of the neck and chest wall were prepped and draped in a sterile manner. Local anesthesia was then administered to the appropriate areas of the neck and chest wall. Ultrasound was then used to locate the right internal jugular vein. The vein compressed easily, had no filing defects, and was patent. The vein was then punctured under direct ultrasound imaging. A guidewire was then passed centrally under fluoroscopic imaging. A stab wound was then made in the anterior chest wall and a 19 cm permcath was passed from the stab wound on the chest wall to the puncture site on the neck. The puncture site was then dilated till the 14Fr peel away sheath was inserted. The permcath was then inserted through the sheath to a central position in the distal superior vena cava. The peel away sheath was then removed. The catheter was then sutured in place using nylon sutures. The puncture was then closed using a 4-0 Vicryl subcuticular suture. Dermabond was used for a dressing on the puncture site. Both ports aspirated and flushed easily and were then packed with heparin. A sterile dressing was applied to the catheter. The patient left the angio suite in good condition and tolerated the procedure well. I attest to the content of the Intraoperative Record and any orders documented therein. Any exceptions are noted below.
[2017-11-02 10:29] VITALS: BP 154/63; PULSE 54; TEMP 36.6; O2SAT 91
[2017-11-02 11:00] VITALS: BP 154/64; PULSE 54; TEMP 36.6; O2SAT 96
--- NOTE | 2017-11-02 13:45 | Anesthesiology Progress Note ---
Anesthesia Post Op Note Date & Time Nov 02, 2017 at 13:44 Vital Signs Pain Intensity: 0 Vital Signs Past 12 Hours Date Time Temp Pulse Resp B/P (MAP) Pulse Ox O2 Delivery O2 Flow Rate FiO2 11/02/17 11:00 36.6 54 16 154/64 96 Room Air 11/02/17 10:29 36.6 54 16 154/63 91 Room Air 11/02/17 08:45 36.7 58 22 196/82 (120) 91 Room Air Notes Mental Status: alert / awake / arousable, participated in evaluation Pt Amnestic to Procedure: Yes Nausea / Vomiting: adequately controlled Pain: adequately controlled Airway Patency, RR, SpO2: stable & adequate BP & HR: stable & adequate Hydration State: stable & adequate Anesthetic Complications: no major complications apparent
== END | disposition home or self-care (01) ==
LOC: C.ACU 07:27
PROVIDERS: ATTEND Surgery Vascular Surgery
DX: N18.6 End stage renal disease (principal); I25.10 Atherosclerotic heart disease of native coronary artery without angina pectoris; I12.0 Hypertensive chronic kidney disease with stage 5 chronic kidney disease or end stage renal disease; J44.9 Chronic obstructive pulmonary disease, unspecified; E78.5 Hyperlipidemia, unspecified; E66.9 Obesity, unspecified; M10.9 Gout, unspecified; I25.2 Old myocardial infarction; K21.9 Gastro-esophageal reflux disease without esophagitis; G30.9 Alzheimer's disease, unspecified; E03.9 Hypothyroidism, unspecified; I48.0 Paroxysmal atrial fibrillation; Z95.5 Presence of coronary angioplasty implant and graft; Z90.89 Acquired absence of other organs; Z82.49 Family history of ischemic heart disease and other diseases of the circulatory system; Z79.82 Long term (current) use of aspirin; Z99.2 Dependence on renal dialysis

== ENCOUNTER 2017-12-13 11:05 | Day surgery (SDC) | payer OTHER ==
[2017-12-04 09:31] VITALS: BMI 28.0
--- NOTE | 2017-12-04 11:13 | PAT Medication Instructions ---
Service Date Dec 04, 2017. Current Home Medication List Acetaminophen (Tylenol), 650 MG RE Q6 Acetaminophen Tab (Tylenol), 650 MG PO Q6 PRN for Pain or Fever Albuterol Sulfate (Albuterol Sulfate), 1 VIAL NEB Q6 PRN for SOB/Wheezing Allopurinol (Zyloprim), 100 MG PO QAM Amiodarone Hcl (Cordarone), 200 MG PO QAM Aspirin (Aspirin 81), 81 MG PO DAILY Atorvastatin (Lipitor), 40 MG PO HS Clopidogrel (Plavix), 75 MG PO QAM Escitalopram (Lexapro), 10 MG PO HS Escitalopram Oxalate (Lexapro), 5 MG PO HS Furosemide (Lasix), 30 MG PO BID Guaifenesin [place] (Guaifenesin Er), 600 MG PO Q12H Hydrocodone/Acetaminophen 5MG/325MG ([place] 5MG/325MG), 1 TABLET PO [id number] PRN for Pain Levothyroxine Sodium (Synthroid), 75 MCG PO QAM Metoprolol Succ (Toprol Xl) (Toprol-Xl), 12.5 MG PO BID Mirtazapine (Mirtazapine), 7.5 MG PO HS Omeprazole (Prilosec), 40 MG PO DAILY Ondansetron Hcl (Zofran), 4 MG PO Q6 PRN for Nausea Polyethylene Glycol 3350 (Miralax), 17 GM PO BID Sevelamer Carbonate (Renvela), 1,600 MG PO TIDM Sevelamer Carbonate (Renvela), 800 MG PO UD Tolnaftate (Tolnaftate), 1 APPLN TOP BID Umeclidinium [place] (Incruse Ellipta), 1 PUFF INH DAILY Vitamin B Cmplx/Vitc/Folic Ac (Nephrocaps), 1 CAP PO DAILY [Barrier Cream], 1 APPLN TOP QS PRN for PREVENT SKIN BREAKDOWN [Supplement Shake], 1 PO 3XWK Medication Instructions For Your Scheduled Surgery - Please check with surgeon for instructions: Aspirin (Aspirin 81), 81 MG PO DAILY Clopidogrel (Plavix), 75 MG PO QAM - Hold the following medications the morning of surgery: [Supplement Shake], 1 PO 3XWK Furosemide (Lasix), 30 MG PO BID Sevelamer Carbonate (Renvela), 1,600 MG PO TIDM Sevelamer Carbonate (Renvela), 800 MG PO UD [Barrier Cream], 1 APPLN TOP QS PRN for PREVENT SKIN BREAKDOWN Tolnaftate (Tolnaftate), 1 APPLN TOP BID Vitamin B Cmplx/Vitc/Folic Ac (Nephrocaps), 1 CAP PO DAILY Polyethylene Glycol 3350 (Miralax), 17 GM PO BID Guaifenesin [place] (Guaifenesin Er), 600 MG PO Q12H - Take the following medications the morning of surgery with a sip of water OTHERWISE NOTHING TO EAT OR DRINK AFTER MIDNIGHT: Acetaminophen (Tylenol), 650 MG RE Q6 (may take if needed up to 4 hours prior to surgery) Acetaminophen Tab (Tylenol), 650 MG PO Q6 PRN for Pain or Fever (may take if needed up to 4 hours prior to surgery) Hydrocodone/Acetaminophen 5MG/325MG ([place] 5MG/325MG), 1 TABLET PO [id number] PRN for Pain (may take if needed up to 4 hours prior to surgery) Albuterol Sulfate (Albuterol Sulfate), 1 VIAL NEB Q6 PRN for SOB/Wheezing Allopurinol (Zyloprim), 100 MG PO QAM Amiodarone Hcl (Cordarone), 200 MG PO QAM Levothyroxine Sodium (Synthroid), 75 MCG PO QAM Metoprolol Succ (Toprol Xl) (Toprol-Xl), 12.5 MG PO BID Ondansetron Hcl (Zofran), 4 MG PO Q6 PRN for Nausea Omeprazole (Prilosec), 40 MG PO DAILY Umeclidinium [place] (Incruse Ellipta), 1 PUFF INH DAILY - Take the following medications as scheduled the night before surgery: Acetaminophen (Tylenol), 650 MG RE Q6 Acetaminophen Tab (Tylenol), 650 MG PO Q6 PRN for Pain or Fever Albuterol Sulfate (Albuterol Sulfate), 1 VIAL NEB Q6 PRN for SOB/Wheezing Mirtazapine (Mirtazapine), 7.5 MG PO HS Escitalopram (Lexapro), 10 MG PO HS Escitalopram Oxalate (Lexapro), 5 MG PO HS Atorvastatin (Lipitor), 40 MG PO HS Furosemide (Lasix), 30 MG PO BID Metoprolol Succ (Toprol Xl) (Toprol-Xl), 12.5 MG PO BID Sevelamer Carbonate (Renvela), 1,600 MG PO TIDM Ondansetron Hcl (Zofran), 4 MG PO Q6 PRN for Nausea Polyethylene Glycol 3350 (Miralax), 17 GM PO BID Guaifenesin [place] (Guaifenesin Er), 600 MG PO Q12H If you have any questions please call us at [phone] or [phone] or [phone]
[~2017-12-13] VITALS: Ht 170.2 cm; Wt 83.0 kg
--- NOTE | 2017-12-13 09:30 | History and Physical ---
History & Physical Date of Service Dec 13, 2017. History & Physical CC: ESRD, infiltration of her LUE AVF with insertion of permcath History of Present Illness The patient is a 72 year old female with multiple medical problems, including ESRD on HD, CAD, COPD, HTN, hyperlipidemia, etc, seen today for malfunctioning LUE AVF at HD. 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 Pt has dementia and unable to provide reliable hx, so most of HPI obtained from prior documentation. Per HD unit, pt with elevated venous pressures and requested fistulagram to evaluate. She had a revision of her fistula with a venorrhaphy. At dialysis post op she infiltrated her upper arm. The fistula can not be used and the arm needs to be rested for a short time. Permcath insertion was inserted. The fistula is now being used and running well. She is here for a permcath removal. 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 Home Medications Scheduled Acetaminophen (Tylenol), 650 MG RE Q6 Allopurinol (Zyloprim), 100 MG PO DAILY Amiodarone Hcl (Cordarone), 200 MG PO DAILY Aspirin (Aspirin 81), 81 MG PO DAILY Atorvastatin (Lipitor), 40 MG PO HS Clopidogrel (Plavix), 75 MG PO DAILY Escitalopram (Lexapro), 10 MG PO HS Escitalopram Oxalate (Lexapro), 5 MG PO HS Furosemide (Lasix), 30 MG PO BID Levothyroxine Sodium (Synthroid), 75 MCG PO DAILY Metoprolol Succ (Toprol Xl) (Toprol-Xl), 12.5 MG PO BID Mirtazapine (Mirtazapine), 7.5 MG PO HS Omeprazole (Prilosec), 40 MG PO DAILY Polyethylene Glycol 3350 (Miralax), 17 GM PO BID Sevelamer Carbonate (Renvela), 1,600 MG PO TIDM Sevelamer Carbonate (Renvela), 800 MG PO UD Tolnaftate (Tolnaftate), 1 APPLN TOP BID Umeclidinium [place] (Incruse Ellipta), 1 PUFF INH DAILY Vitamin B Cmplx/Vitc/Folic Ac (Nephrocaps), 1 CAP PO DAILY [Supplement Shake], 1 PO 3XWK Scheduled PRN Acetaminophen Tab (Tylenol), 650 MG PO Q6 PRN for Pain or Fever Albuterol Sulfate (Albuterol Sulfate), 1 VIAL NEB Q6 PRN for SOB/Wheezing Ondansetron Hcl (Zofran), 4 MG PO Q6 PRN for Nausea [Barrier Cream], 1 APPLN TOP QS PRN for PREVENT SKIN BREAKDOWN Problem List Medical Problems: (1) Altered mental status (2) CAD (coronary artery disease) (3) Cellulitis of left lower extremity without foot (4) COPD (chronic obstructive pulmonary disease) (5) Depression (6) Diabetes mellitus type 2 in obese (7) Diastolic CHF (8) Dyslipidemia (9) Elevated troponin (10) End stage renal disease (11) End-stage renal disease on hemodialysis (12) ESRD (end stage renal disease) (13) Gout (14) HTN (hypertension) (15) Hyperkalemia (16) Hypothyroidism (17) 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 (18) Loss of consciousness (19) PAF (paroxysmal atrial fibrillation) (20) Pneumonia (21) Pseudomonas urinary tract infection (22) Recurrent epistaxis (23) Sepsis (24) Syncope (25) Syncope (26) UTI (urinary tract infection) Surgical Problems: (1) bilat ankle surgery (2) Hernia, abdominal (3) History of appendectomy (4) Nasal septoplasty (5) Repair of rotator cuff by suture (6) right elbow surgery Surgical / Medical History Hx Cardiac Surgery: Yes (angioplasty, stent) Hx Abdominal Surgery: Yes (appy, hernia repair) Hx Cancer Surgery: No Hx Thoracic Surgery: No Hx Orthopedic: Yes (BILATERAL ANKLE, ROTATOR CUFF, RIGHT ELBOW) Hx Urinary Tract Surgery: No Past Medical/Surgical History: Alzheimer's, CHF, COPD, Depression, Diabetes, Heart Disease, High Cholesterol, Hypertension, Kidney Disease, Thyroid Disease Family History Cancer Heart disease Hypertension Social History Smoking Status: Never Smoker Hx Tobacco Use In Past Year?: No Hx Alcohol Use - Type & Amnt: No Hx Substance Use -Type & Amnt: No Review of Systems Constitutional: No chills, No malaise Skin: No change in color Eyes: No visual changes ENMT: No sore throat Respiratory: No cough, No short of breath Cardiovascular: No chest pain, No palpitations, No syncope, No edema Gastrointestinal: No abdominal pain, No nausea, No vomiting Genitourinary - Female: No dysuria, No hematuria Additional Comments: Pt unreliable historian d/t dementia. Physical Exam Constitutional: General Apperance: well-nourished, well-developed Level of Distress: NAD, chronically ill Psychiatric: Mental Status: active & alert, normal mood, normal affect Orientation: to person, not oriented to time, not oriented to place Memory: recent memory abnormal, remote memory abnormal Head: normocephalic, atraumatic Eyes: EOM: EOMI ENMT: normal ENT inspection, hearing grossly normal Neck: supple, trachea midline Lungs: Respiratory effort: no dyspnea Auscultation: no rales/crackles, no rhonchi, decreased breath sounds Cardiovascular: Apical Impulse: not displaced Heart Auscultation: RRR, no rubs, no gallops Peripheral Pulses: Pulses: full and equal, in all extremities except if noted Bruits: none appreciated Carotid Pulse: normal on the left, normal on the right Brachial Pulses: normal on the left, normal on the right, pertinent finding (LUE AVF with good thrill/bruit) Radial Pulse: normal on the left, normal on the right Posterior Tibialis Pulse: decreased on the left, decreased on the right Dorsalis Pedis Pulse: decreased on the left, decreased on the right Abdomen: Inspection & Palpation: soft, non-distended, no tenderness, guarding & rebound Musculoskeletal: normal strength (5/5 throughout), normal tone Extremities: Upper Right: no cyanosis, no edema, no varicosities Upper Left: no cyanosis, no edema, no varicosities, infiltration seen of the left upper arm Lower Right: no cyanosis, no edema, no varicosities Lower Left: no cyanosis, no edema, no varicosities Neurologic: Cranial Nerves: grossly intact Assessment and Plan ASSESSMENT and PLAN: ESRD on HD Functioning fistula left arm Plan: The patient is admitted for removal of a permcath. I have discussed the risks options and benefits of the procedure with the patient's sister, who is her POA. The patient's sister understands the risks options and benefits and agrees to the procedure.
[~2017-12-13 11:05] MED LIST changes: -ATROPINE SULFATE 0.1 MG/ML 5ML SYR IV PRN; -EpHEDrine SULFATE INJ 50 MG/ML AMP IV PRN; -FENTANYL CITRATE INJ 50 MCG/1 ML 2 ML VIAL IV PRN; -FENTANYL CITRATE INJ 50 MCG/1 ML 2 ML VIAL ONE; -HEPARIN SOD (PORCINE) 5000 UNIT/ML 1 ML VIAL IV ONE; -HEPARIN SOD (PORCINE) 5000 UNIT/ML 1 ML VIAL ONE; -HYDROmorphone INJ 1 MG/ML SYR IV PRN; -LABETALOL HCL IV 5 MG/ML 20ML IV PRN; -LIDOCAINE HCL 1% 20 ML VIAL SQ ONE; -MEPERIDINE HCL 25 MG/ML CARP IV PRN; -MIDAZOLAM HCL 1 MG/ML 2ML VIAL ONE; -ONDANSETRON INJ 2 MG/ML 2 ML VIAL IV PRN; -OXYC-57 PO
[2017-12-13 11:35] VITALS: BP 113/72; PULSE 106; TEMP 36.7; O2SAT 100; Ht 170.2 cm; Wt 83.0 kg
[2017-12-13] MEDS ORDERED: ESCI10TA17 PO (12:37)
[2017-12-13] MEDS ORDERED: ONDA4TAB46 PO (12:42)
[2017-12-13] MEDS ORDERED: BISA1TAB15 PO (12:42)
[2017-12-13] MEDS ORDERED: SODI1ENE RE (12:43)
[2017-12-13] MEDS ORDERED: DEXT40GE (12:45)
[2017-12-13] MEDS ORDERED: LIDOCAINE HCL 1% 20 ML VIAL ONE (13:24)
[2017-12-13] MEDS ORDERED: FENTANYL CITRATE INJ 50 MCG/1 ML 2 ML VIAL ONE (13:24)
[2017-12-13] MEDS ORDERED: MIDAZOLAM HCL 1 MG/ML 2ML VIAL ONE (13:24)
[2017-12-13] MEDS ORDERED: LIDOCAINE HCL 1% 20 ML VIAL INJ ONE (13:42)
--- NOTE | 2017-12-13 13:43 | [facility] Operative Report ---
Operative Report Operative Date Dec 13, 2017. Pre-Operative Diagnosis Functioning fistula left arm Post-Operative Diagnosis Functioning fistula left arm Procedure(s) Performed Perm Cath Removal Surgeon Vandana Automobile Technician Surgeon(s) None Estimated Blood Loss 0 Findings catheter and cuff removed Specimens a; perm cath Drains None Anesthesia Type Local Complication(s) none Disposition no Indications The patient is a 72-year-old white female with a left upper arm fistula which is working nicely at this time. She had a PermCath placed in the past due to use the fistula. It is now recommended that the PermCath be removed. I have discussed the risks options and benefits of the procedure with the patient. The patient understands the risks options and benefits and agrees to the procedure. Description of Procedure The patient was taken to the angio suite and placed in the supine position. The ____ side of the neck, chest wall and catheter were prepped and draped in a sterile manner. Local anesthesia was then accomplished. Using sharp and blunt dissection, the cuff of the permcath was freed up from the surrounding fibrous tissue. The permcath and cuff were completely removed. Pressure was then applied and adequate hemostasis was obtained. A sterile dressing was then applied. The patient left the angio suite in good condition and tolerated the procedure well. I attest to the content of the Intraoperative Record and any orders documented therein. Any exceptions are noted below.
--- NOTE | 2017-12-13 13:45 | Discharge Instructions ---
Discharge Instructions Date of Service Dec 13, 2017. Visit Reason for Visit: End Stage Renal Disease -On Hemodialysis Discharge Discharge Diagnosis / Problem: Functioning fistula Discharge Goals Goal(s): Therapeutic intervention Activity Recommendations Activity Limitations: per Instructions/Follow-up section Shower/Bathe: tomorrow Anesthesia . Post Anesthesia Instructions: If you have had General Anesthesia or IV Sedation: * Do not drive today. * Resume driving when surgeon permits. * Do not make important decisions or sign legal documents today. * Call surgeon for: 1. Temperature elevations greater than 101 degrees F. 2. Uncontrollable pain. 3. Excessive bleeding. 4. Persistent nausea and vomiting. 5. Medication intolerance (nausea, vomiting or rash). * For nausea and vomiting use only clear liquids such as: tea, soda, bouillon until nausea subsides, then gradually increase diet as tolerated. * If you have any concerns or questions, call your surgeon's office. If physician is unavailable and it is an emergency, call 911 or go to the nearest emergency room. . Instructions / Follow-Up Instructions / Follow-Up Call [phone] with any questions or concerns. Remove dressing tomorrow SPECIAL CARE INSTRUCTIONS: Medications: * Continue to take your medications as directed. If you have been given a prescription for Plavix, please fill it immediately and take as directed. Incision Care: * Your puncture site may have some bruising and minor swelling for about one week. * You will have a small dressing covering your puncture site. You may remove the dressing after 24 hours and shower. You may let the warm soapy water run over it, but be sure to dry the puncture site well and keep it dry. * DO NOT IMMERSE THE INCISION IN A TUB/POOL/etc. UNTIL HEALED. * Puncture sites should be kept covered with a band-aid until it begins to heal. Restrictions: * Depending on whether you leg or arm was punctured to access the arteries, you will be required to lay flat, hold your arm still, or both, for about 4 hours after the procedure to prevent bleeding. * Limit your activity for the first 48 hours. You may walk and go up and down steps. Avoid excessive bending or movement at the puncture site. Possible Complications: * Excessive Swelling - after blood flow is improved you may notice increased swelling in the lower legs. This is a normal response. This usually depends on the amount of blockages in the leg, how long they have been there prior to your procedure and how much blood flow was restored. Elevating your legs will help to improve this. Please notify our office ([phone] ) if the swelling does not go away after lying in bed overnight. * Infection/Drainage/Bleeding - Drainage or bleeding from the puncture site should be minimal. If you have excessive bleeding or drainage, call our office ([phone]) right away. * Pain - You may experience some mild pain or soreness at your puncture site. If your pain does not improve, please contact our office ([phone]). Call your doctor and seek emergent treatment if you develop: * Temperature above 101 degrees * Any fever or chills * Any redness or purulent drainage from the puncture site * Any new dusky/blue colored toes or feet with coolness or sharp or aching pain. SKIN IRRITATION: * You may experience some redness and/or swelling in the area where radiation was administered. If any skin irritation occurs, please contact your family physician. FOLLOW UP VISIT: Keep any scheduled doctor appointments. Diet Recommendations Recommended Home Diet: resume previous diet Procedures Procedures Performed: Perm Cath Removal Pending Studies Studies pending at discharge: no Medical Emergencies . Who to Call and When: Medical Emergencies: If at any time you feel your situation is an emergency, please call 911 immediately. . Non-Emergent Contact Non-Emergency issues call your: Surgeon . . "Provider Documentation" section prepared by Esdras Ross. .
[2017-12-13 13:55] VITALS: BP 112/49; PULSE 109; TEMP 37; O2SAT 99
[2017-12-13 14:10] VITALS: BP 107/54; PULSE 104; O2SAT 100
[2017-12-13 14:25] VITALS: BP 104/53; PULSE 105; TEMP 37; O2SAT 100
[2017-12-13 14:55] VITALS: BP 107/51; PULSE 104; TEMP 36.5; O2SAT 98
== END 2017-12-13 15:10 | disposition home or self-care (01) ==
LOC: C.ACU 11:05
PROVIDERS: ATTEND Surgery Vascular Surgery
DX: N18.6 End stage renal disease (principal); I25.10 Atherosclerotic heart disease of native coronary artery without angina pectoris; J44.9 Chronic obstructive pulmonary disease, unspecified; I10 Essential (primary) hypertension; I50.30 Unspecified diastolic (congestive) heart failure; E11.9 Type 2 diabetes mellitus without complications; E78.00 Pure hypercholesterolemia, unspecified; E03.9 Hypothyroidism, unspecified; I48.0 Paroxysmal atrial fibrillation; M10.9 Gout, unspecified; I13.2 Hypertensive heart and chronic kidney disease with heart failure and with stage 5 chronic kidney disease, or end stage renal disease; E78.5 Hyperlipidemia, unspecified; Z99.2 Dependence on renal dialysis; Z79.899 Other long term (current) drug therapy; Z79.82 Long term (current) use of aspirin; Z79.02 Long term (current) use of antithrombotics/antiplatelets

== ENCOUNTER → 2017-12-29 | Outpatient (CLI) | payer OTHER ==
[~2017-12-29] MED LIST changes: +ACET-1693 PO; -ACET325T96 PO; +BISA1TAB15 PO; -CLINDAMYCIN 600 MG/54 ML D5W IV SCH; -D5W AND 1/4NSS 1000 ML IV SCH; +DEXT40GE; -ESCI1TAB6 PO; -POLY335019 PO; +SODI1ENE RE; -SODIUM CHLORIDE 0.9% 1000ML 1,000 ML IV SCH
== END | disposition home or self-care (01) ==
LOC: C.LABUPUNI 12:09
PROVIDERS: ATTEND Nurse Practitioner Family
DX: N18.6 End stage renal disease (principal); G30.9 Alzheimer's disease, unspecified

== ENCOUNTER 2018-03-14 11:11 | Inpatient (IN) | payer OTHER ==
[2018-03-12 08:34] VITALS: BMI 25.0
--- NOTE | 2018-03-12 09:44 | PAT Medication Instructions ---
Service Date March 12, 2018. Current Home Medication List Acetaminophen (Tylenol), 650 MG RE Q6 Acetaminophen Tab (Tylenol), 650 MG PO Q6 PRN for Pain or Fever Albuterol Sulfate (Albuterol Sulfate), 1 VIAL NEB Q6 PRN for SOB/Wheezing Allopurinol (Zyloprim), 100 MG PO QAM Amiodarone Hcl (Cordarone), 200 MG PO QAM Aspirin (Aspirin 81), 81 MG PO QAM Atorvastatin (Lipitor), 40 MG PO HS Clopidogrel (Plavix), 75 MG PO QAM Dextrose (Diabetic Use) (Insta-Glucose), for Hypoglycemia Protocol Escitalopram (Lexapro), 10 MG PO HS Fentanyl (Fentanyl), 1 PATCH TOP Q72H Furosemide (Lasix), 30 MG PO BID Guaifenesin La (Guaifenesin Er), 600 MG PO Q12H Hydrocodone/Acetaminophen 5MG/325MG ([place] 5MG/325MG), 1 TABLET PO QID Levothyroxine Sodium (Synthroid), 75 MCG PO QAM Metoprolol Succ (Toprol Xl) (Toprol-Xl), 12.5 MG PO BID Mirtazapine (Mirtazapine), 7.5 MG PO HS Ocuvite Preservision (Ocuvite Preservision), 1 TAB PO QAM Omeprazole (Prilosec), 40 MG PO QAM Ondansetron Hcl (Zofran), 4 MG PO Q6 PRN for Nausea Polyethylene Glycol 3350 (Miralax), 17 GM PO Q2D Saline (Saline Nasal [place]), 2 SPRAYS KALEIGH TID PRN for Nasal Congestion Senna/Docusate Sod (Senokot S), 2 TAB PO BID Sevelamer Carbonate (Renvela), 1,600 MG PO TIDM Sevelamer Carbonate (Renvela), 800 MG PO UD Sodium Phosphates (Fleet Enema Six Pack), 1 UNIT RE DIRECTED PRN for Constipation Vitamin B Cmplx/Vitc/Folic Ac (Nephrocaps), 1 CAP PO 1700 Medication Instructions For Your Scheduled Surgery -Check with surgeon and prescriber: Aspirin (Aspirin 81), 81 MG PO QAM Clopidogrel (Plavix), 75 MG PO QAM -Continue as directed: Fentanyl (Fentanyl), 1 PATCH TOP Q72H - Hold the following medications the morning of surgery: Furosemide (Lasix), 30 MG PO BID Guaifenesin La (Guaifenesin Er), 600 MG PO Q12H Ocuvite Preservision (Ocuvite Preservision), 1 TAB PO QAM Polyethylene Glycol 3350 (Miralax), 17 GM PO Q2D Sodium Phosphates (Fleet Enema Six Pack), 1 UNIT RE DIRECTED PRN for Constipation - Take the following medications the morning of surgery with a sip of water: Acetaminophen (Tylenol), 650 MG RE Q6 (if needed, can be taken up to four hours before surgery) Acetaminophen Tab (Tylenol), 650 MG PO Q6 PRN for Pain or Fever (if needed, can be taken up to four hours before surgery) Albuterol Sulfate (Albuterol Sulfate), 1 VIAL NEB Q6 PRN for SOB/Wheezing (if needed, and bring with you to the hospital) Allopurinol (Zyloprim), 100 MG PO QAM Amiodarone Hcl (Cordarone), 200 MG PO QAM Dextrose (Diabetic Use) (Insta-Glucose), for Hypoglycemia Protocol (if needed) Hydrocodone/Acetaminophen 5MG/325MG ([place] 5MG/325MG), 1 TABLET PO QID (if needed, can be taken up to four hours before surgery) Levothyroxine Sodium (Synthroid), 75 MCG PO QAM Metoprolol Succ (Toprol Xl) (Toprol-Xl), 12.5 MG PO BID Omeprazole (Prilosec), 40 MG PO QAM Ondansetron Hcl (Zofran), 4 MG PO Q6 PRN for Nausea (if needed) Saline (Saline Nasal [place]), 2 SPRAYS [place] TID PRN for Nasal Congestion (if needed) Sevelamer Carbonate (Renvela), 1,600 MG PO TIDM Sevelamer Carbonate (Renvela), 800 MG PO UD Senna/Docusate Sod (Senokot S), 2 TAB PO BID - Take the following medications as scheduled the night before surgery: Acetaminophen (Tylenol), 650 MG RE Q6 (if needed) Acetaminophen Tab (Tylenol), 650 MG PO Q6 PRN for Pain or Fever (if needed) Albuterol Sulfate (Albuterol Sulfate), 1 VIAL NEB Q6 PRN for SOB/Wheezing (if needed) Atorvastatin (Lipitor), 40 MG PO HS Dextrose (Diabetic Use) (Insta-Glucose), for Hypoglycemia Protocol (if needed) Escitalopram (Lexapro), 10 MG PO HS Furosemide (Lasix), 30 MG PO BID Guaifenesin La (Guaifenesin Er), 600 MG PO Q12H (if needed) Hydrocodone/Acetaminophen 5MG/325MG ([place] 5MG/325MG), 1 TABLET PO QID (if needed) Mirtazapine (Mirtazapine), 7.5 MG PO HS Ondansetron Hcl (Zofran), 4 MG PO Q6 PRN for Nausea (if needed) Polyethylene Glycol 3350 (Miralax), 17 GM PO Q2D Saline (Saline Nasal [place]), 2 SPRAYS [place] TID PRN for Nasal Congestion (if needed) Sevelamer Carbonate (Renvela), 1,600 MG PO TIDM Sevelamer Carbonate (Renvela), 800 MG PO UD Senna/Docusate Sod (Senokot S), 2 TAB PO BID Sodium Phosphates (Fleet Enema Six Pack), 1 UNIT RE DIRECTED PRN for Constipation (if needed) Vitamin B Cmplx/Vitc/Folic Ac (Nephrocaps), 1 CAP PO 1700 If you have any questions please call us at [phone] or [phone] or [phone]
[2018-03-12 17:40] VITALS: BP 127/53; PULSE 53; TEMP 36.8; O2SAT 96
[2018-03-13 19:40] VITALS: BP 122/51; PULSE 52; TEMP 36.5; O2SAT 91
[2018-03-13 23:27] VITALS: BP 170/57; PULSE 56; TEMP 36.7; O2SAT 99
[~2018-03-14] VITALS: Ht 167.6 cm; Wt 70.4 kg
--- NOTE | 2018-03-14 09:53 | History and Physical ---
History & Physical Date of Service March 14, 2018. History & Physical CC: Left ankle ulcer with bone involvement HPI: Ms Colmenares is a 72-year-old woman, who we previously saw for her left brachiocephalic AV fistula. She underwent revision with venorrhaphy of her left brachiocephalic AV fistula with Dr. Ross in October 2017. She says that with respect to her fistula, she is dialyzing well and not had any issues. She presents today for a separate issue involving her left leg. The patient has a wound over her left lateral ankle that she thinks has been there for at least 2 or 3 weeks. It is located on the lateral aspect of her ankle and is painful to the patient. She is nonambulatory and uses a wheelchair for mobility. She is unsure if she is on any antibiotics at this time. In review of the records that were sent with the patient, it appears that she is on doxycycline and Keflex. She is otherwise feeling well. Of note, she does have significant dementia at baseline. Allergies Coded Allergies: Amoxicillin (Verified Allergy, Intermediate, HIVES, 10/09/17) HAS TOLERATED CEFEPIME, KEFLEX, AND ROCEPHIN IN PAST ADMISSIONS Clavulanic Acid (Verified Allergy, Intermediate, HIVES, 10/09/17) hives NSAIDs (Verified Allergy, Unknown, UNKNOWN, 10/09/17) JARET Inhibitors (Verified Adverse Reaction, Mild, HYPERKALEMIA, 10/09/17) [facility] 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 Home Medications Scheduled Acetaminophen (Tylenol), 650 MG RE Q6 Allopurinol (Zyloprim), 100 MG PO DAILY Amiodarone Hcl (Cordarone), 200 MG PO DAILY Aspirin (Aspirin 81), 81 MG PO DAILY Atorvastatin (Lipitor), 40 MG PO HS Clopidogrel (Plavix), 75 MG PO DAILY Escitalopram (Lexapro), 10 MG PO HS Escitalopram Oxalate (Lexapro), 5 MG PO HS Furosemide (Lasix), 30 MG PO BID Levothyroxine Sodium (Synthroid), 75 MCG PO DAILY Metoprolol Succ (Toprol Xl) (Toprol-Xl), 12.5 MG PO BID Mirtazapine (Mirtazapine), 7.5 MG PO HS Omeprazole (Prilosec), 40 MG PO DAILY Polyethylene Glycol 3350 (Miralax), 17 GM PO BID Sevelamer Carbonate (Renvela), 1,600 MG PO TIDM Sevelamer Carbonate (Renvela), 800 MG PO UD Tolnaftate (Tolnaftate), 1 APPLN TOP BID Umeclidinium [place] (Incruse Ellipta), 1 PUFF INH DAILY Vitamin B Cmplx/Vitc/Folic Ac (Nephrocaps), 1 CAP PO DAILY [Supplement Shake], 1 PO 3XWK Scheduled PRN Acetaminophen Tab (Tylenol), 650 MG PO Q6 PRN for Pain or Fever Albuterol Sulfate (Albuterol Sulfate), 1 VIAL NEB Q6 PRN for SOB/Wheezing Ondansetron Hcl (Zofran), 4 MG PO Q6 PRN for Nausea [Barrier Cream], 1 APPLN TOP QS PRN for PREVENT SKIN BREAKDOWN Problem List Medical Problems: (1) Altered mental status (2) CAD (coronary artery disease) (3) Cellulitis of left lower extremity without foot (4) COPD (chronic obstructive pulmonary disease) (5) Depression (6) Diabetes mellitus type 2 in obese (7) Diastolic CHF (8) Dyslipidemia (9) Elevated troponin (10) End stage renal disease (11) End-stage renal disease on hemodialysis (12) ESRD (end stage renal disease) (13) Gout (14) HTN (hypertension) (15) Hyperkalemia (16) Hypothyroidism (17) 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 (18) Loss of consciousness (19) PAF (paroxysmal atrial fibrillation) (20) Pneumonia (21) Pseudomonas urinary tract infection (22) Recurrent epistaxis (23) Sepsis (24) Syncope (25) Syncope (26) UTI (urinary tract infection) Surgical Problems: (1) bilat ankle surgery (2) Hernia, abdominal (3) History of appendectomy (4) Nasal septoplasty (5) Repair of rotator cuff by suture (6) right elbow surgery Surgical / Medical History Hx Cardiac Surgery: Yes (angioplasty, stent) Hx Abdominal Surgery: Yes (appy, hernia repair) Hx Cancer Surgery: No Hx Thoracic Surgery: No Hx Orthopedic: Yes (BILATERAL ANKLE, ROTATOR CUFF, RIGHT ELBOW) Hx Urinary Tract Surgery: No Past Medical/Surgical History: Alzheimer's, CHF, COPD, Depression, Diabetes, Heart Disease, High Cholesterol, Hypertension, Kidney Disease, Thyroid Disease Family History Cancer Heart disease Hypertension Social History Smoking Status: Never Smoker Hx Tobacco Use In Past Year?: No Hx Alcohol Use - Type & Amnt: No Hx Substance Use -Type & Amnt: No Review of Systems Constitutional: No chills, No malaise Skin: No change in color Eyes: No visual changes ENMT: No sore throat Respiratory: No cough, No short of breath Cardiovascular: No chest pain, No palpitations, No syncope, No edema Gastrointestinal: No abdominal pain, No nausea, No vomiting Genitourinary - Female: No dysuria, No hematuria Additional Comments: Pt unreliable historian d/t dementia. Physical Exam On physical exam, the patient's heart rate is 50 and blood pressure is 104/48 in her right arm. She is awake and alert. She is pleasantly confused. Her left upper extremity is significant for a brachiocephalic AV fistula with palpable thrill. Her bilateral upper extremities are warm and well perfused with palpable radial pulses bilaterally. She does have some muscle wasting of her hands bilaterally. Lungs are clear. Cor had a RRR. Her abdomen is obese, soft, nontender, nondistended. I had difficulty palpating her femoral pulses due to patient positioning in her wheelchair and body habitus. The patient has a palpable right DP pulse. Left lower extremity is significant for a 6 x 5 cm wound over the lateral malleolus. There is exposed tendon and bone in the wound base. It is malodorous with slightly cloudy discharge. It is appropriately tender to palpation. She has monophasic to biphasic DP and PT signals in the left foot. Motor and sensation are intact in the bilateral feet. Imp: Left ankle ulcer with bone involvement Plan: Patient is scheduled for a left AKA. I have discussed the risks options and benefits of the procedure with the patient. The patient understands the risks options and benefits and agrees to the procedure.
[~2018-03-14 11:11] MED LIST changes: -BARRIER CREAM TOP; -BISA1TAB15 PO; +CLINDAMYCIN 600 MG/54 ML D5W IV SCH; +FENT1DIS85 TOP; +MULT-190 PO; +POLY335019 PO; +SALI-3 NAE; +SENN-65 PO; +SODIUM CHLORIDE 0.9% 1000ML 1,000 ML IV SCH; -SUPPLEMENT SHAKE PO; -UMEC1INH INH; -[UNRECOGNIZED DRUG - CODE] TOP
[2018-03-14 12:01] LABS: INR 1.1 (0.9-1.1); PTT PATIENT 31.7 SECONDS (21.0-31.0)
[2018-03-14 12:05] VITALS: BP 134/32; PULSE 50; TEMP 37.1; O2SAT 97; BMI 25.0
[2018-03-14 12:07] LABS: CALCIUM 8.8 mg/dl (8.5-10.1); CREATININE 3.08 mg/dl (0.60-1.20); POTASSIUM 3.7 mmol/L (3.5-5.1)
[2018-03-14] MEDS ORDERED: UMEC1INH INH (12:56)
[2018-03-14] MEDS ORDERED: POLY335019 PO (12:56)
[2018-03-14] MEDS ORDERED: B-CO1CAP17 PO (12:56)
[2018-03-14] MEDS ORDERED: liquid protein PO (12:56)
[2018-03-14] MEDS ORDERED: MAGN1SOL7 PO (13:12)
[2018-03-14] MEDS ORDERED: antifungal TOP (13:18)
[2018-03-14] MEDS ORDERED: MIDAZOLAM HCL 1 MG/ML 2ML VIAL ONE (13:37)
[2018-03-14] MEDS ORDERED: FENTANYL CITRATE INJ 50 MCG/1 ML 2 ML VIAL ONE (13:37)
[2018-03-14] MEDS ORDERED: LIDOCAINE HCL 2% 2 ML VIAL (20MG/ML) ONE (14:10)
[2018-03-14] MEDS ORDERED: PROPOFOL IV EMULSION 10 MG/ML 20 ML VIAL ONE (14:10)
[2018-03-14] MEDS ORDERED: PHENYLEPHRINE HCL INJ 10 MG/ML VIAL ONE (14:10)
[2018-03-14] MEDS ORDERED: ONDANSETRON INJ 2 MG/ML 2 ML VIAL ONE (14:10)
--- NOTE | 2018-03-14 14:40 | [facility] Post Operative Brief Note ---
Immediate Operative Summary Operative Date March 14, 2018. Pre-Operative Diagnosis Left ankle ulcer with bone involvement Post-Operative Diagnosis Left ankle ulcer with bone involvement Procedure(s) Performed Left Above the Knee Amputation Surgeon Dr. Ross Licensed Marriage And Family Therapist Surgeon(s) none Estimated Blood Loss 200 ML Findings Consistent with Post-Op Diagnosis Specimens a. left above knee amputation Drains None Anesthesia Type General Complication(s) none Disposition Accompanied Pt To Recover: no Disposition: Recovery Room / PACU
[2018-03-14] MEDS ORDERED: ACETAMINOPHEN 325 MG TAB PO PRN ×2 (14:45)
[2018-03-14] MEDS ORDERED: ATROPINE SULFATE 0.1 MG/ML 5ML SYR IV PRN (14:45)
[2018-03-14] MEDS ORDERED: HYDROmorphone INJ 2 MG/ML SYR/VIAL IV PRN (14:45)
[2018-03-14] MEDS ORDERED: ONDANSETRON INJ 2 MG/ML 2 ML VIAL IV PRN (14:45)
[2018-03-14] MEDS ORDERED: HYDROCODONE/ACETAMIN 5/325MG TAB PO PRN (14:45)
[2018-03-14] MEDS ORDERED: EpHEDrine SULFATE INJ 50 MG/ML AMP IV PRN (14:45)
[2018-03-14] MEDS ORDERED: MoRPHine SULFATE 4 MG/ML 1 ML CARP\\VIAL IV PRN (14:45)
[2018-03-14] MEDS ORDERED: GUAIFENESIN 600 MG TABCR PO PRN (14:45)
[2018-03-14] MEDS ORDERED: SODIUM CHLORIDE 0.65% NA SOLN 45 ML (OCEAN) NAE PRN (14:45)
[2018-03-14] MEDS ORDERED: SOD PHOSPHATE/SOD BIPHOSPHATE ENEMA 132 ML BTL PR PRN (14:45)
[2018-03-14] MEDS ORDERED: SEVELAMER HYDROCH 800 MG TAB PO PRN (14:45)
[2018-03-14] MEDS ORDERED: MAGNESIUM CITRATE 296 ML/BTL PO PRN (14:45)
[2018-03-14] MEDS ORDERED: PHENYLEPHRINE 100MCG/ML 5ML SYR IV PRN (14:45)
[2018-03-14] MEDS ORDERED: ONDANSETRON 4 MG TAB PO PRN (14:45)
[2018-03-14] MEDS ORDERED: HYDROmorphone INJ 0.5 MG/0.5 ML SYR ONE (15:13)
--- NOTE | 2018-03-14 16:20 | Anesthesiology Progress Note ---
Anesthesia Post Op Note Date & Time March 14, 2018 at 16:20 Vital Signs Pain Intensity: 3 Vital Signs Past 12 Hours Date Time Temp Pulse Resp B/P (MAP) Pulse Ox O2 Delivery O2 Flow Rate FiO2 03/14/18 16:10 52 18 120/42 100 Nasal Cannula 3 03/14/18 15:55 50 18 122/41 100 Nasal Cannula 3 03/14/18 15:45 36.3 50 18 115/40 100 Nasal Cannula 3 03/14/18 15:35 36.3 50 14 130/40 99 Nasal Cannula 3 03/14/18 15:25 36.3 51 16 125/36 99 Oxymask 3 03/14/18 15:15 55 16 131/43 96 Oxymask 3 03/14/18 15:05 54 12 132/47 100 Oxymask 7 03/14/18 14:55 51 12 93/34 100 Oxymask 7 03/14/18 14:45 36.4 53 12 89/34 100 Oxymask 7 03/14/18 12:05 37.1 50 20 134/32 97 Room Air Notes Mental Status: alert / awake / arousable, participated in evaluation Pt Amnestic to Procedure: Yes Nausea / Vomiting: adequately controlled Pain: adequately controlled Airway Patency, RR, SpO2: stable & adequate BP & HR: stable & adequate Hydration State: stable & adequate Anesthetic Complications: no major complications apparent
[2018-03-14 16:40] VITALS: BP 133/54; PULSE 53; TEMP 36.8; O2SAT 96
[2018-03-14 17:10] VITALS: BP 106/55; PULSE 52; TEMP 36.7; O2SAT 96
--- NOTE | 2018-03-14 18:04 | OPERATIVE REPORT ---
DATE OF OPERATION: 03/14/2018 PREOPERATIVE DIAGNOSIS: Osteomyelitis of the left ankle with open wound with an exposed bone. POSTOPERATIVE DIAGNOSIS: Osteomyelitis of the left ankle with open wound with an exposed bone. PROCEDURE: Left above knee amputation. SURGEON: Dr. Ross. ANESTHETIC: General LMA. PROCEDURE INDICATIONS: Patient is a 72-year-old female with open wound to the left lower extremity with exposed bone into the joint. She is now mobile. Above knee amputation was recommended. Her power of finance attorney agreed and to the procedure. OPERATION AND FINDINGS: Patient was taken to the operating room and placed in supine position. After general anesthesia was accomplished, the left leg was prepped and draped in a sterile manner. A fish mouth incision was made in the left thigh in the usual fashion. The anterior muscles were divided using electrocautery. The posterior incision flap was then made. Periosteal elevator was used to remove the periosteum from the femur. The femur was transected with the Gigli saw, was fairly soft bone at that level. The posterior flap was then made with an amputation knife. Once the leg was removed, bleeding was controlled using free ties. All bleeding was clamped with hemostats prior to that time. The bone was made smooth with the bones file. Once bleeding was controlled, the anterior and posterior flaps were then approximated using 3-0 Vicryl suture. Anali were used for the skin edges. Sterile dressings were applied and the patient left the operating room in satisfactory condition. She tolerated the procedure well. I attest to the content of the Intraoperative Record and any orders documented therein. Any exceptions are noted below. IVANA
[2018-03-14] MEDS: ACETAMINOPHEN 650 MG SUPP PR SCH (19:25)
[2018-03-14] MEDS: POLYETHYLENE (MIRALAX) 17 GM PACK PO SCH (19:27)
[2018-03-14] MEDS: SEVELAMER HYDROCH 800 MG TAB PO SCH (19:28)
[2018-03-14] MEDS: FUROSEMIDE 20 MG TAB PO SCH (19:29)
[2018-03-14] MEDS: METOPROLOL SUCC 25MG EXT REL TAB PO SCH (21:00)
[2018-03-14] MEDS: ESCITALOPRAM OXALATE 10 MG TAB PO SCH (21:16)
[2018-03-14] MEDS: MIRTAZAPINE TAB 15 MG TAB PO SCH (21:17)
[2018-03-14] MEDS: DOCUSATE SODIUM/SENNA 50/8.6MG TAB PO SCH (21:18)
[2018-03-14 21:19] VITALS: BP 149/62; PULSE 53
[2018-03-15] VITALS (20 sets, daily range): BP systolic 107–178; BP diastolic 27–69; PULSE 56–67; TEMP 36.8–37.2; O2SAT 96–100; Ht 167.6 cm; Wt 70.4 kg
[2018-03-15] MEDS: ACETAMINOPHEN 650 MG SUPP PR SCH ×4 (00:07→19:06)
[2018-03-15] MEDS: CHECK FENTANYL PATCH PLACEMENT SCH ×6 (00:18→15:47)
[2018-03-15 07:35] LABS: BASO % 0.4 %; BASO ABS # 0.03 K/uL (0-0.2); EOS % 1.2 %; EOS ABS # 0.08 K/uL (0-0.5); HEMATOCRIT 29.9 % (37-47); HEMOGLOBIN 9.1 g/dL (12.0-16.0); IG# 0.02 K/uL (0.00-0.02); LYMPH % 11.1 %; LYMPH ABS # 0.76 K/uL (1.2-3.4); MEAN CELL VOLUME 98.4 fL (80-100); MEAN CORPUSCULAR HEMOGLOBIN 29.9 pg (25-34); MEAN CORPUSCULAR HGB CONC 30.4 g/dl (32-36); MEAN PLATELET VOLUME 10.7 fL (7.4-10.4); MONO % 12.1 %; MONO ABS # 0.83 K/uL (0.11-0.59); NEUT % 74.9 %; NEUT ABS # 5.14 K/uL (1.4-6.5); PLATELET COUNT 163 K/uL (130-400); RED CELL DISTRIBUTION WIDTH CV 22.4 % (11.5-14.5); RED CELL DISTRIBUTION WIDTH SD 80.3 fL (36.4-46.3); WHITE BLOOD COUNT 6.86 K/uL (4.8-10.8)
[2018-03-15] MEDS: INCRUSE ELLIPTA: ORDER AWAITING ACTION SCH ×3 (07:48→15:47)
[2018-03-15 08:10] LABS: CALCIUM 8.2 mg/dl (8.5-10.1); CREATININE 3.92 mg/dl (0.60-1.20)
--- NOTE | 2018-03-15 08:10 | Anesthesiology Progress Note ---
Anesthesia Post Op Note Date & Time March 15, 2018 at 08:08 Vital Signs Vital Signs Past 12 Hours Date Time Temp Pulse Resp B/P (MAP) Pulse Ox O2 Delivery O2 Flow Rate FiO2 03/15/18 07:49 66 162/53 (89) 03/15/18 07:19 36.8 63 18 176/51 (92) 100 Room Air 03/15/18 00:10 Room Air 03/15/18 00:10 158/62 (94) 03/14/18 21:19 53 149/62 (91) Notes Mental Status: alert / awake / arousable, participated in evaluation Pt Amnestic to Procedure: Yes Nausea / Vomiting: adequately controlled Pain: adequately controlled Airway Patency, RR, SpO2: stable & adequate BP & HR: stable & adequate Hydration State: stable & adequate Anesthetic Complications: no major complications apparent
--- NOTE | 2018-03-15 08:13 | Clinical Documentation Query ---
CLINICAL DOCUMENTATION QUERY 72-y/o female who has undergone left AKA. Etiology of wound would greatly impact Severity of Illness (SOI). In your clinical opinion is this patient being managed for: ( ) Stage 4 Pressure ulcer to Left ankle in setting of type II DM and PAD requiring amputation. ( ) Not Agree ( ) Other explanation of clinical findings (Please Explain. If no explanation given, this would be considered a no response.) ( x ) Unable to determine ( ) Need to Discuss (Please call CDS via extension or qliq. If no interaction occurs this is considered a no response.) The medical record reflects the following clinical findings, treatment, and risk factors. Clinical Indicators: "The patient has a palpable right DP pulse. Left lower extremity is significant for a 6 x 5 cm wound over the lateral malleolus. There is exposed tendon and bone in the wound base. It is malodorous with slightly cloudy discharge. It is appropriately tender to palpation. She has monophasic to biphasic DP and PT signals in the left foot. Motor and sensation are intact in the bilateral feet." Treatment: amputation, WC consult, Q2H repositioning Risk Factors: Age, DM II, obesity, ESRD, Please clarify and document your clinical opinion in the progress notes and discharge summary. Terms such as "probable", "suspected", "likely", "questionable", "possible", or "still to be ruled out" are acceptable. IF IN AGREEMENT, YOU MUST DOCUMENT ABOVE DIAGNOSTIC STATEMENT IN DAILY PROGRESS NOTES AND DISCHARGE SUMMARY. This document is not part of the patient's record. Thank You, Amarjit Patel RN [phone] & via qlicCONNECT
[2018-03-15] MEDS: FUROSEMIDE 20 MG TAB PO SCH ×2 (09:34→17:45)
[2018-03-15] MEDS: METOPROLOL SUCC 25MG EXT REL TAB PO SCH ×2 (09:34→20:14)
[2018-03-15] MEDS: NEPHROCAPS PO SCH (09:34)
[2018-03-15] MEDS: CEROVITE ADV FORMULA TAB PO SCH (09:34)
[2018-03-15] MEDS: CLOPIDOGREL BISULFATE 75 MG TAB PO SCH (09:35)
[2018-03-15] MEDS: AMIODARONE 200 MG TAB PO SCH (09:35)
[2018-03-15] MEDS: PANTOprazole SOD 40 MG TAB PO SCH (09:35)
[2018-03-15] MEDS: ASPIRIN 81 MG ECTAB PO SCH (09:35)
[2018-03-15] MEDS: ALLOPURINOL 100 MG TAB PO SCH (09:35)
[2018-03-15] MEDS: SEVELAMER HYDROCH 800 MG TAB PO SCH ×3 (09:35→17:45)
[2018-03-15] MEDS: LEVOTHYROXINE 75 MCG TAB PO SCH (09:36)
[2018-03-15] MEDS: DOCUSATE SODIUM/SENNA 50/8.6MG TAB PO SCH ×2 (09:38→20:14)
[2018-03-15] MEDS: HEPARIN SOD 5000 UNIT/0.5 ML CARP SQ SCH ×2 (09:43→20:24)
--- NOTE | 2018-03-15 10:38 | Nephrology Consultation ---
Nephrology Consultation Date of Consultation: March 15, 2018. Attending Physician: Dr Ross Requesting Physician: Dr Ross Reason for Consultation: ESRD on HD History of Present Illness 72 year old female w/ ESRD on MWF HD w/ complex medical hx as below admitted so that she could yesterday undergo L AKA for mgt of her chronic wound w/ exposed bone, OA. The surgery was uneventful. We are consulted for mgt of her dialysis. Pt awake and alert and w/o complaint at this time. Does endorse some controlled sacral pain; no dyspnea, no n/v; no bm so far. 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 Medications Current Inpatient Medications Medications (Trade) Dose Ordered Sig/Gelacio Route Start Time Stop Time Status Last Admin Dose Admin Heparin Sodium (Porcine) (Heparin Sq 5000 Unit/0.5ml) 5,000 unit Q12H SQ 03/15/18 09:00 04/14/18 08:59 Acetaminophen (Tylenol Supp) 650 mg Q6 CO 03/14/18 18:00 04/13/18 17:59 03/15/18 06:07 650 MG Acetaminophen (Tylenol Tab) 650 mg Q6 PRN PO 03/14/18 14:45 04/13/18 14:44 Allopurinol (Zyloprim Tab) 100 mg QAM PO 03/15/18 09:00 04/14/18 08:59 Amiodarone HCl (Cordarone Tab) 200 mg QAM PO 03/15/18 09:00 04/14/18 08:59 Aspirin (Ecotrin Tab) 81 mg QAM PO 03/15/18 09:00 04/14/18 08:59 Clopidogrel Bisulfate (plAVix TAB) 75 mg QAM PO 03/15/18 09:00 04/14/18 08:59 Escitalopram Oxalate (Lexapro Tab) 10 mg HS PO 03/14/18 21:00 04/13/18 20:59 03/14/18 21:16 10 MG Furosemide (Lasix Tab) 30 mg BID17 PO 03/14/18 18:00 04/13/18 17:59 03/14/18 19:29 30 MG Guaifenesin (Mucinex Contr Rel Tab) 600 mg Q12H PRN PO 03/14/18 14:45 04/13/18 14:44 Acetaminophen/ Hydrocodone Bitart (Harwood 5/325 Tab) 1 tab Q4HWA PRN PO 03/14/18 14:45 03/28/18 14:44 Levothyroxine Sodium (Synthroid Tab) 75 mcg DAILYBB PO 03/15/18 09:00 04/14/18 08:59 Magnesium Citrate (Citrate Of Magnesia Soln) 30 ml DAILY PRN PO 03/14/18 14:45 04/13/18 14:44 Metoprolol Succinate (Toprol Xl Tab) 12.5 mg BID PO 03/14/18 21:00 04/13/18 20:59 Multivitamins/ Minerals (Multivitamin W/ Minerals Tab) 1 tab QAM PO 03/15/18 09:00 04/14/18 08:59 Ondansetron HCl (Zofran Tab) 4 mg Q6 PRN PO 03/14/18 14:45 04/13/18 14:44 Sodium Chloride (Madrone Nasal Charlotte) 2 sprays TID PRN KALEIGH 03/14/18 14:45 04/13/18 14:44 Senna/Docusate Sodium (Senokot S Tab) 2 tab BID PO 03/14/18 21:00 04/13/18 20:59 03/14/18 21:18 2 TAB Vitamin B Complex/ Vit C/Folic Acid (Nephrocaps) 1 cap DAILY PO 03/15/18 09:00 04/14/18 08:59 Mirtazapine (Remeron Tab) 7.5 mg HS PO 03/14/18 21:00 04/13/18 20:59 03/14/18 21:17 7.5 MG Pantoprazole Sodium (Protonix Tab) 40 mg QAM PO 03/15/18 09:00 04/14/18 08:59 Polyethylene (Miralax Powder Packet) 17 gm Q2D@0900 PO 03/14/18 18:00 04/13/18 17:59 03/14/18 19:27 17 GM Sevelamer HCl (Renagel Tab) 1,600 mg TIDM PO 03/14/18 17:45 04/13/18 17:59 03/14/18 19:28 1,600 MG Sevelamer HCl (Renagel Tab) 800 mg UD PRN PO 03/14/18 14:45 04/13/18 14:44 Miscellaneous Information (Order Awaiting Action) 1 ea QS N/A 03/15/18 00:00 04/14/18 00:00 Sodium Biphosphate/ Sodium Phosphate (Fleet Enema) 132 ml DAILY PRN CO 03/14/18 14:45 04/13/18 14:44 Morphine Sulfate (MoRPHine SULFATE INJ) If PO analgesic is orde... Q2H PRN IV 03/14/18 14:45 03/28/18 14:44 Fentanyl (Duragesic Patch) 25 mcg Q72H TD 03/17/18 09:00 03/31/18 08:59 Fentanyl (Duragesic Patch) 12 mcg Q72H TD 03/17/18 09:00 03/31/18 08:59 Miscellaneous (Fentanyl Patch Remove & Waste) 1 ea Q3D@0900 N/A 03/17/18 09:00 04/16/18 08:59 Miscellaneous Information (Check Fentanyl Patch Placement) 1 ea QS N/A 03/15/18 00:00 04/14/18 00:00 03/15/18 07:48 1 EA Miscellaneous (Fentanyl Patch Remove & Waste) 1 ea Q3D@0900 N/A 03/17/18 09:00 04/16/18 08:59 Miscellaneous Information (Check Fentanyl Patch Placement) 1 ea QS N/A 03/15/18 00:00 04/14/18 00:00 03/15/18 07:48 1 EA Home Meds and Scripts Medications Dose Route/Sig Max Daily Dose Days Date Category Dose Instructions [antifungal] 1 Cr TOP 03/14/18 Reported Magnesium Citrate 1.745 Gm/30 Ml Italia PO PRN 03/14/18 Reported [liquid protein] PO M-W-F PRN 03/14/18 Reported Nephrocaps (Vitamin B Complex/Vit C/Folic Acid) Cap 1 Cap PO DAILY 30 03/14/18 Reported Incruse Ellipta (Umeclidinium Lincoln) 62.5 Mcg/Inh Inh 1 Puff INH DAILY 03/14/18 Reported Saline Nasal Charlotte (Saline) 0.65 % Spr 2 Sprays KALEIGH TID PRN 03/12/18 Reported Senokot S (Senna/Docusate Sodium) 1 Tab Tab 2 Tab PO BID 03/12/18 Reported Ocuvite Preservision (Multivitamins/Minerals) 1 Tab Tab 1 Tab PO QAM 03/12/18 Reported Miralax (Polyethylene Glycol 3350) 1 Pow Pow 17 Gm PO Q2D 03/12/18 Reported Fentanyl 37.5 Mcg/Hr Dis 1 Patch TOP Q72H 03/12/18 Reported Insta-Glucose (Dextrose (Diabetic Use)) 77.4 % Gel PRN 12/13/17 Reported Fleet Enema Six Pack (Sodium Phosphates) 1 Delmy Delmy 1 Unit RE DIRECTED PRN 12/13/17 Reported Lexapro (Escitalopram Oxalate) 10 Mg Tab 10 Mg PO HS 12/13/17 Reported Zyloprim (Allopurinol) 100 Mg Tab 100 Mg PO QAM 10/25/17 Reported Harwood 5MG/325MG (Acetaminophen/Hydrocodone Bitart) Tab 1 Tablet PO QID 10/09/17 Reported PRN PAIN Guaifenesin Er (Guaifenesin) 600 Mg Tabcr 600 Mg PO Q12H 10/09/17 Reported Zofran (Ondansetron HCl) 4 Mg Tab 4 Mg PO Q6 PRN 08/26/17 Reported Toprol-Xl (Metoprolol Succinate) 25 Mg Tabcr 12.5 Mg PO BID 08/26/17 Reported Tylenol (Acetaminophen) 650 Mg Supp 650 Mg RE Q6 08/26/17 Reported Tylenol (Acetaminophen) 325 Mg Tab 650 Mg PO Q6 PRN 08/26/17 Reported Mirtazapine 7.5 Mg Tab 7.5 Mg PO HS 08/03/17 Reported Cordarone (Amiodarone Hcl) 200 Mg Tab 200 Mg PO QAM 08/03/17 Reported Renvela (Sevelamer Carbonate) 800 Mg Tab 800 Mg PO UD 90 12/01/16 Reported WITH SNACKS Lasix (Furosemide) 20 Mg Tab 30 Mg PO BID 12/01/16 Reported Prilosec (Omeprazole) 20 Mg Capcr 40 Mg PO QAM 12/01/16 Reported Aspirin 81 (Aspirin) 81 Mg Tab 81 Mg PO QAM 10/23/16 Reported Plavix (Clopidogrel Bisulfate) 75 Mg Tab 75 Mg PO QAM 10/09/16 Reported Renvela (Sevelamer Carbonate) 800 Mg Tab 1,600 Mg PO TIDM 02/01/15 Reported Synthroid (Levothyroxine Sodium) 75 Mcg Tab 75 Mcg PO QAM 09/24/14 Reported Review of Systems Constitutional: + weakness, + fatigue, No fever Eyes: No worsening of vision ENT: No hearing loss Respiratory: No cough, No shortness of breath Cardiac: No chest pain, No edema Abdomen: No pain, No nausea, No vomiting, No diarrhea Musculoskeletal: + see HPI Female : + problem reported (no change in chronic voiding sx) Neuro: + memory loss, + weakness Psych: No depression symptoms, No anxiety Heme: No abnormal bleeding/bruising Endo: + fatigue Skin: No rash, No itch, No new/changing skin lesions Physical Exam Date Time Temp Pulse Resp B/P (MAP) Pulse Ox O2 Delivery O2 Flow Rate FiO2 03/15/18 07:49 66 162/53 (89) 03/15/18 07:40 Room Air 03/15/18 07:19 36.8 63 18 176/51 (92) 100 Room Air 03/15/18 00:10 Room Air 03/15/18 00:10 158/62 (94) 03/14/18 21:19 53 149/62 (91) 03/14/18 17:10 36.7 52 16 106/55 (72) 96 Nasal Cannula 2.0 03/14/18 16:40 Nasal Cannula 2.0 03/14/18 16:40 36.8 53 18 133/54 (80) 96 Nasal Cannula 2.0 03/14/18 16:40 Nasal Cannula 2.0 03/14/18 16:25 52 18 127/44 100 Nasal Cannula 3 03/14/18 16:10 52 18 120/42 100 Nasal Cannula 3 03/14/18 15:55 50 18 122/41 100 Nasal Cannula 3 03/14/18 15:45 36.3 50 18 115/40 100 Nasal Cannula 3 03/14/18 15:35 36.3 50 14 130/40 99 Nasal Cannula 3 03/14/18 15:25 36.3 51 16 125/36 99 Oxymask 3 03/14/18 15:15 55 16 131/43 96 Oxymask 3 03/14/18 15:05 54 12 132/47 100 Oxymask 7 03/14/18 14:55 51 12 93/34 100 Oxymask 7 03/14/18 14:45 36.4 53 12 89/34 100 Oxymask 7 03/14/18 12:05 37.1 50 20 134/32 97 Room Air General Appearance: WD/WN, no apparent distress (on RA, interactive, appropriate, acknowledges memory problems) Eyes: EOMI ENT: hearing grossly normal Neck: supple Respiratory/Chest: no respiratory distress, + decreased breath sounds Cardiovascular: regular rate, rhythm, no edema Abdomen: normal bowel sounds, non tender, soft (no alonso) Extremities: + pertinent finding (AVF + t/b; L AKA) Neurologic/Psych: alert, normal mood/affect, oriented x 3 Skin: no jaundice, warm/dry, no rash Diagnostics Last 24 Hours Test 03/14/18 11:30 03/14/18 11:35 03/14/18 15:00 03/15/18 07:23 Prothrombin Time 11.4 SECONDS Prothromb Time International Ratio 1.1 Activated Partial Thromboplast Time 31.7 SECONDS Partial Thromboplastin Ratio 1.2 Sodium Level 132 mmol/L 134 mmol/L Potassium Level 3.7 mmol/L 4.0 mmol/L Chloride Level 97 mmol/L 100 mmol/L Carbon Dioxide Level 30 mmol/L 24 mmol/L Anion Gap 5.0 mmol/L 10.0 mmol/L Blood Urea Nitrogen 35 mg/dl 45 mg/dl Creatinine 3.08 mg/dl 3.92 mg/dl Est Creatinine Clear Calc Drug Dose 16.8 ml/min 13.2 ml/min Estimated GFR () 16.7 12.5 Estimated GFR (Non- 14.4 10.8 BUN/Creatinine Ratio 11.4 11.6 Random Glucose 72 mg/dl 56 mg/dl Calcium Level 8.8 mg/dl 8.2 mg/dl Bedside Glucose 74 mg/dl 76 mg/dl White Blood Count 6.86 K/uL Red Blood Count 3.04 M/uL Hemoglobin 9.1 g/dL Hematocrit 29.9 % Mean Corpuscular Volume 98.4 fL Mean Corpuscular Hemoglobin 29.9 pg Mean Corpuscular Hemoglobin Concent 30.4 g/dl Platelet Count 163 K/uL Mean Platelet Volume 10.7 fL Neutrophils (%) (Auto) 74.9 % Lymphocytes (%) (Auto) 11.1 % Monocytes (%) (Auto) 12.1 % Eosinophils (%) (Auto) 1.2 % Basophils (%) (Auto) 0.4 % Neutrophils # (Auto) 5.14 K/uL Lymphocytes # (Auto) 0.76 K/uL Monocytes # (Auto) 0.83 K/uL Eosinophils # (Auto) 0.08 K/uL Basophils # (Auto) 0.03 K/uL RDW Standard Deviation 80.3 fL RDW Coefficient of Variation 22.4 % Immature Granulocyte % (Auto) 0.3 % Immature Granulocyte # (Auto) 0.02 K/uL Anisocytosis PRESENT Diagnostic Radiology: None indicated this admission Assessment & Plan 72 year old female w/ ESRD on MWF HD w/ complex medical hx as below admitted so that she could yesterday undergo L AKA for mgt of her ankle ulcer w/ exposed bone. The surgery was uneventful. We are consulted for mgt of her dialysis. ESRD on HD w/ HTN -routine HD today w/ gentle UF; no heparin; 2K bath since we are going into weekend -goal 2-2.5 L UF Anemia of ESRD -epo w/ HD POPEYE -her binders have been appropriately continued Appreciate consult; will follow with you.
[2018-03-15] MEDS ORDERED: EPOETIN ALFA 10,000 UNITS/ML VIAL IV. SCH (11:30)
--- NOTE | 2018-03-15 13:25 | Progress Note ---
Progress Note Date of Service: March 15, 2018. Subjective 72 yo f with multiple medical problems, including dementia and ESRD on HD, POD # 1 after LLE AKA d/t osteomyelitis of L foot, seen in f/u today. Pt states pain well controlled with medication. Denies HERRERA, chest pain, SOB, nausea, other complaints. Problem List Medical Problems: (1) Acute electrocardiogram changes Status: Acute (2) Altered mental status Status: Acute (3) Altered mental status Status: Acute (4) Anemia Status: Acute (5) Cellulitis Status: Acute (6) CHF (congestive heart failure) Status: Acute (7) Diarrhea Status: Acute (8) Elevated troponin Status: Acute (9) End stage kidney disease Status: Acute (10) Epistaxis Status: Acute (11) Hypotension Status: Acute (12) PNA (pneumonia) Status: Acute (13) Respiratory failure Status: Acute (14) Sepsis Status: Acute (15) Sepsis Status: Acute (16) Vomiting Status: Acute Objective Vital Signs Vital Signs Past 12 Hours Date Time Temp Pulse Resp B/P (MAP) Pulse Ox O2 Delivery O2 Flow Rate FiO2 03/15/18 12:47 63 144/53 (83) 03/15/18 10:58 36.8 63 16 173/47 (89) 96 Room Air 03/15/18 07:49 66 162/53 (89) 03/15/18 07:40 Room Air 03/15/18 07:19 36.8 63 18 176/51 (92) 100 Room Air Exam CONST: A&O x2, NAD, chronically ill appearing female CHEST: RRR lungs decreased, but ctab ABD, soft, nontender, + bs x 4 quad EXT: LLE AKA site intact with aly. minimal active bleeding present, however , immediate post op dressing saturated. No ecchymosis or erythema, no large hematoma noted, AKA site soft, tender. Laboratory and Microbiology Results Past 24 Hours Test 03/14/18 15:00 03/15/18 07:23 03/15/18 09:55 03/15/18 10:23 Range/Units Bedside Glucose 76 145 70-90 mg/dl White Blood Count 6.86 4.8-10.8 K/uL Red Blood Count 3.04 4.2-5.4 M/uL Hemoglobin 9.1 12.0-16.0 g/dL Hematocrit 29.9 37-47 % Mean Corpuscular Volume 98.4 80-100 fL Mean Corpuscular Hemoglobin 29.9 25-34 pg Mean Corpuscular Hemoglobin Concent 30.4 32-36 g/dl Platelet Count 163 130-400 K/uL Mean Platelet Volume 10.7 7.4-10.4 fL Neutrophils (%) (Auto) 74.9 % Lymphocytes (%) (Auto) 11.1 % Monocytes (%) (Auto) 12.1 % Eosinophils (%) (Auto) 1.2 % Basophils (%) (Auto) 0.4 % Neutrophils # (Auto) 5.14 1.4-6.5 K/uL Lymphocytes # (Auto) 0.76 1.2-3.4 K/uL Monocytes # (Auto) 0.83 0.11-0.59 K/uL Eosinophils # (Auto) 0.08 0-0.5 K/uL Basophils # (Auto) 0.03 0-0.2 K/uL RDW Standard Deviation 80.3 36.4-46.3 fL RDW Coefficient of Variation 22.4 11.5-14.5 % Immature Granulocyte % (Auto) 0.3 % Immature Granulocyte # (Auto) 0.02 0.00-0.02 K/uL Anisocytosis PRESENT Sodium Level 134 136-145 mmol/L Potassium Level 4.0 3.5-5.1 mmol/L Chloride Level 100 98-107 mmol/L Carbon Dioxide Level 24 21-32 mmol/L Anion Gap 10.0 3-11 mmol/L Blood Urea Nitrogen 45 7-18 mg/dl Creatinine 3.92 0.60-1.20 mg/dl Est Creatinine Clear Calc Drug Dose 13.2 ml/min Estimated GFR () 12.5 Estimated GFR (Non- 10.8 BUN/Creatinine Ratio 11.6 10-20 Random Glucose 56 70-99 mg/dl Calcium Level 8.2 8.5-10.1 mg/dl Hepatitis B Surface Antigen NEG NEG Hepatitis B Surface Antibody NEG Test 03/15/18 12:10 Range/Units Bedside Glucose 92 70-90 mg/dl ASSESSMENT and PLAN: s/p LLE AKA osteomyelitis L foot Pt doing generally well post op. New dressing placed today. Reeval tomorrow.
[2018-03-15] MEDS: MIRTAZAPINE TAB 15 MG TAB PO SCH (20:14)
[2018-03-15] MEDS: ESCITALOPRAM OXALATE 10 MG TAB PO SCH (20:14)
[2018-03-16] VITALS (8 sets, daily range): BP systolic 92–155; BP diastolic 35–62; PULSE 52–72; TEMP 37–37.4; O2SAT 95–99
[2018-03-16] MEDS: CHECK FENTANYL PATCH PLACEMENT SCH ×4 (01:00→08:03)
[2018-03-16] MEDS: ACETAMINOPHEN 650 MG SUPP PR SCH ×3 (01:08→11:07)
[2018-03-16] MEDS: LEVOTHYROXINE 75 MCG TAB PO SCH (05:42)
[2018-03-16] MEDS: INCRUSE ELLIPTA: ORDER AWAITING ACTION SCH ×2 (08:00)
--- NOTE | 2018-03-16 08:35 | Progress Note ---
Progress Note Date of Service: March 16, 2018. Subjective No complaints Problem List Medical Problems: (1) Acute electrocardiogram changes Status: Acute (2) Altered mental status Status: Acute (3) Altered mental status Status: Acute (4) Anemia Status: Acute (5) Cellulitis Status: Acute (6) CHF (congestive heart failure) Status: Acute (7) Diarrhea Status: Acute (8) Elevated troponin Status: Acute (9) End stage kidney disease Status: Acute (10) Epistaxis Status: Acute (11) Hypotension Status: Acute (12) PNA (pneumonia) Status: Acute (13) Respiratory failure Status: Acute (14) Sepsis Status: Acute (15) Sepsis Status: Acute (16) Vomiting Status: Acute Objective Vital Signs Vital Signs Past 12 Hours Date Time Temp Pulse Resp B/P (MAP) Pulse Ox O2 Delivery O2 Flow Rate FiO2 03/16/18 08:12 37.4 67 18 155/62 (93) 95 Room Air 03/16/18 07:15 Room Air 03/16/18 01:17 37.4 64 147/40 (75) 03/16/18 01:10 37.0 70 16 155/45 (81) 99 Room Air 03/16/18 01:00 Room Air 03/16/18 00:30 72 144/60 03/16/18 00:15 57 130/46 03/16/18 00:10 56 127/35 03/16/18 00:00 52 92/39 03/15/18 23:45 61 125/40 03/15/18 23:30 67 107/49 03/15/18 23:15 64 141/61 03/15/18 23:00 60 151/50 03/15/18 22:45 59 136/59 03/15/18 22:30 60 136/53 03/15/18 22:15 61 150/62 03/15/18 22:00 64 142/58 03/15/18 21:45 56 143/53 03/15/18 21:30 57 144/57 03/15/18 21:15 58 146/56 03/15/18 21:08 60 130/51 03/15/18 21:00 37.2 61 130/27 (61) Exam VSS Afebrile Incision dry and clean, no erythema or drainage Lungs clear cor RRR Laboratory and Microbiology Results Past 24 Hours Test 03/15/18 09:55 5/4/18 10:23 03/15/18 12:10 Range/Units Bedside Glucose 145 92 70-90 mg/dl Hepatitis B Surface Antigen NEG NEG Hepatitis B Surface Antibody NEG Microbiology Results 03/15/18 MRSA DNA Surveillance Screen - Final, Complete Specimen Positive for MRSA by DNA Probe Imp: Post AKA Plan: Can go back to [place] when bed ready.
[2018-03-16] MEDS: SEVELAMER HYDROCH 800 MG TAB PO SCH ×2 (08:41→12:15)
--- NOTE | 2018-03-16 08:41 | Discharge Instructions ---
Discharge Instructions Date of Service March 16, 2018. Admission Reason for Admission: Left Ankle Osteomyelitis Discharge Discharge Diagnosis / Problem: Left above knee amputation Discharge Goals Goal(s): Therapeutic intervention Activity Recommendations Activity Limitations: per Instructions/Follow-up section Shower/Bathe: keep incision dry . Instructions / Follow-Up Instructions / Follow-Up Call [phone] to schedule a follow up appointment if one not already scheduled. Change dressing of stump daily with 4x4's and kerlex May d/c dressing if not drainage. Resume her pre hospital activity. Fall precautions OOB in chair ACTIVITY RECOMMENDATIONS: See Above SPECIAL CARE INSTRUCTIONS: Call your doctor if: * Temperature above 101 degrees * Pain not relieved by pain medicine ordered * There is increased drainage or redness from any incision * You have any unanswered questions or concerns. Current Hospital Diet Patient's current hospital diet: AHA Diet (Heart Healthy), Renal Diet Discharge Diet Recommended Diet: AHA Diet (Heart Healthy), Renal Diet Procedures Procedures Performed: Left Above the Knee Amputation Pending Studies Studies pending at discharge: no Medical Emergencies . Who to Call and When: Medical Emergencies: If at any time you feel your situation is an emergency, please call 911 immediately. . Non-Emergent Contact Non-Emergency issues call your: Surgeon . "Provider Documentation" section prepared by Esdras Ross. . [place] Drug Monitoring Program Search Results: no issues identified
[2018-03-16] MEDS: ASPIRIN 81 MG ECTAB PO SCH (08:42)
[2018-03-16] MEDS: AMIODARONE 200 MG TAB PO SCH (08:42)
[2018-03-16] MEDS: POLYETHYLENE (MIRALAX) 17 GM PACK PO SCH (08:42)
[2018-03-16] MEDS: CLOPIDOGREL BISULFATE 75 MG TAB PO SCH (08:43)
[2018-03-16] MEDS: NEPHROCAPS PO SCH (08:43)
[2018-03-16] MEDS: CEROVITE ADV FORMULA TAB PO SCH (08:43)
[2018-03-16] MEDS: FUROSEMIDE 20 MG TAB PO SCH (08:43)
[2018-03-16] MEDS: ALLOPURINOL 100 MG TAB PO SCH (08:44)
[2018-03-16] MEDS: METOPROLOL SUCC 25MG EXT REL TAB PO SCH (08:44)
[2018-03-16] MEDS: PANTOprazole SOD 40 MG TAB PO SCH (08:44)
[2018-03-16] MEDS: DOCUSATE SODIUM/SENNA 50/8.6MG TAB PO SCH (08:45)
[2018-03-16] MEDS: HEPARIN SOD 5000 UNIT/0.5 ML CARP SQ SCH (08:51)
[2018-03-17] MEDS ORDERED: FENTANYL 25 MCG/HR TDSY TD SCH ×2 (09:00)
[2018-03-17] MEDS ORDERED: FENTANYL PATCH REMOVE & WASTE SCH ×2 (09:00)
[2018-03-17] MEDS ORDERED: FENTANYL 12 MCG/HR TDSY TD SCH (09:00)
--- NOTE | 2018-03-22 09:28 | DISCHARGE SUMMARY ---
ADMISSION DIAGNOSIS: Left ankle ulcer with osteomyelitis. DISCHARGE DIAGNOSES: 1. Status post left above the knee amputation. 2. Left ankle ulcer with osteomyelitis. DISCHARGE CONDITION: Stable. CONSULTATIONS IN HOSPITAL: Included nephrology for her regular hemodialysis orders. PROCEDURES IN THE HOSPITAL: Included left above the knee amputation, which was performed by Dr. Ross on 03/14/2018 with an EBL of 200 mL and no significant complications. HISTORY OF PRESENT ILLNESS: Mrs. Colmenares is a 72-year-old female with a longstanding history of significant multiple medical problems including endstage renal disease on hemodialysis, hypertension, coronary artery disease, dyslipidemia, congestive heart failure, COPD, type 2 diabetes mellitus, and dementia, who presented to Dr. Ross's office from her care home due to ulceration has been present in her left ankle for an unknown period of time. The wound appeared somewhat necrotic and the bone was visible and appeared infected. Due to the severity and depth of her ankle ulcer and the lack of surgical options for salvage, she was recommended to consider undergoing a left above the knee amputation. The patient herself was agreeable, however, consent was obtained from her power of senior trial attorney. HOSPITAL COURSE: The patient was admitted on 03/14/2018 after undergoing her left above the knee amputation. The patient did essentially well postoperatively remaining stable, vital signs as well as her labs. Her pain was under tolerable control with oral pain medication. She tolerated dialysis well and was felt to be stable enough for discharge on postop day 2. PHYSICAL EXAMINATION: VITAL SIGNS: On day of discharge, her vital signs were as follows: Blood pressure of 155/62 with a respiratory rate of 18, pulse of 67, temperature of 37.4 and pulse oximetry of 95% on room air. CONSTITUTIONAL: In general, the patient is a chronically ill appearing, overweight elderly female, in no acute distress. She is nonambulatory and in a wheelchair. HEAD: Normocephalic and atraumatic. EYES: EOMI. ENT: Demonstrates no hearing loss, rhinorrhea or pharyngeal erythema. NECK: Supple, nontender with a midline trachea without masses or crepitus. LUNGS: Demonstrates no dyspnea. They are decreased throughout but clear bilaterally. CARDIOVASCULAR: Demonstrates nondisplaced apical impulse with a regular rate and rhythm. Her peripheral pulses are full and equal in all extremities unless otherwise noted specifically they are normal in her carotid, brachial, radial, and femoral pulses. Right lower extremity distal pulses are nonpalpable and left leg is status post above knee amputation. ABDOMEN: Soft, nontender with normoactive bowel sounds in all 4 quadrants. No guarding or rebound. There was no flank or CVA tenderness. EXTREMITIES: Bilateral upper extremities demonstrate no cyanosis, edema, clubbing, varicosities or ulcers. She does have a thrill and bruit over her AV fistula. Her left lower extremity above the knee amputation site appears to be healing well. The area is tender to palpation and demonstrate [id number] edema; however, there is no significant ecchymosis. There is no erythema, hematoma or ecchymosis noted. The suture line remains intact with aly. DIET UPON DISCHARGE: Should be a low cholesterol AHA diabetic and renal diet. MEDICATIONS: Reconciled in the chart and are as per her discharge instructions. FOLLOWUP: With Dr. Ross or his PA Joi Mcghee within 2 weeks for reevaluation and possible removal of aly. She is advised to call the office for any other questions. IVANA
== END 2018-03-16 13:11 | DRG 617 ==
LOC: C.ACU 11:11 → C.MSW 12:32 → ENRESERV 16:19
PROVIDERS: ADMIT Surgery Vascular Surgery; ATTEND Surgery Vascular Surgery
PROC: 0Y6D0Z3 Detachment at Left Upper Leg, Low, Open Approach (ICD-10-PCS; principal; 2018-03-14 13:00)
DX: E11.69 Type 2 diabetes mellitus with other specified complication (principal); E11.51 Type 2 diabetes mellitus with diabetic peripheral angiopathy without gangrene; N18.6 End stage renal disease; L97.323 Non-pressure chronic ulcer of left ankle with necrosis of muscle; M86.8X7 Other osteomyelitis, ankle and foot; E11.621 Type 2 diabetes mellitus with foot ulcer; Z99.2 Dependence on renal dialysis; E11.21 Type 2 diabetes mellitus with diabetic nephropathy; I48.0 Paroxysmal atrial fibrillation; I25.10 Atherosclerotic heart disease of native coronary artery without angina pectoris; Z74.09 Other reduced mobility; Z79.82 Long term (current) use of aspirin; Z88.1 Allergy status to other antibiotic agents; Z88.6 Allergy status to analgesic agent; Z95.5 Presence of coronary angioplasty implant and graft; M1A.9XX0 Chronic gout, unspecified, without tophus (tophi); F03.90 Unspecified dementia, unspecified severity, without behavioral disturbance, psychotic disturbance, mood disturbance, and anxiety; D63.1 Anemia in chronic kidney disease

== ENCOUNTER 2018-07-03 10:29 | Inpatient (IN) | payer OTHER ==
[2018-07-03] VITALS (16 sets, daily range): BP systolic 88–178; BP diastolic 32–79; PULSE 61–90; TEMP 36.5–37.2; O2SAT 96; BMI 24.2
[~2018-07-03] VITALS: Ht 165.1 cm; Wt 63.2 kg
[~2018-07-03 10:29] MED LIST changes: +ACET-24 PO; +ATOR-24 PO; -B-CO1CAP17 PO; +B-COCAP2 PO; +BISA10SU38 PR; +BISA1TAB25 PO; +CAL PO; -CLINDAMYCIN 600 MG/54 ML D5W IV SCH; +CYM/30 PO; -DEXT40GE; +DEXT40GE PO; -ESCI10TA17 PO; -FENT1DIS85 TOP; -FURO20TA PO; +GLGKIT IM; +GUAI100S66 PO; -GUAI1TAB75 PO; -HYDR-5688 PO; -LPT/40 PO; +LSN10 PO; +MAGNSOL18 PO; -METO25TA3 PO; -MULT-190 PO; +MULTCAP33 PO; +NUTR-7 PO; -SALI-3 NAE; -SODI1ENE RE; -SODIUM CHLORIDE 0.9% 1000ML 1,000 ML IV SCH; +UMEC1INH INH; +[UNRECOGNIZED DRUG - OTHER] PO; +[UNRECOGNIZED DRUG - OTHER] PR; +liquid protein PO
[2018-07-03] MEDS ORDERED: SODIUM CHLORIDE 0.9% 1000ML 500 ML IV ONE (10:43)
[2018-07-03] MEDS ORDERED: CEFEPIME IV 2,000 MG in DEXTROSE 5% 100ML 100 ML IV ONE (10:45)
[2018-07-03 11:27] LABS: BASO % 0.4 %; BASO ABS # 0.02 K/uL (0-0.2); EOS % 5.8 %; EOS ABS # 0.29 K/uL (0-0.5); HEMATOCRIT 40.9 % (37-47); HEMOGLOBIN 12.7 g/dL (12.0-16.0); IG# 0.01 K/uL (0.00-0.02); LYMPH % 19.7 %; LYMPH ABS # 0.98 K/uL (1.2-3.4); MEAN CELL VOLUME 100.5 fL (80-100); MEAN CORPUSCULAR HEMOGLOBIN 31.2 pg (25-34); MEAN CORPUSCULAR HGB CONC 31.1 g/dl (32-36); MEAN PLATELET VOLUME 11.7 fL (7.4-10.4); MONO % 12.7 %; MONO ABS # 0.63 K/uL (0.11-0.59); NEUT % 61.2 %; NEUT ABS # 3.05 K/uL (1.4-6.5); PLATELET COUNT 157 K/uL (130-400); RED CELL DISTRIBUTION WIDTH CV 17.3 % (11.5-14.5); RED CELL DISTRIBUTION WIDTH SD 64.7 fL (36.4-46.3); WHITE BLOOD COUNT 4.98 K/uL (4.8-10.8)
--- NOTE | 2018-07-03 11:29 | DIAGNOSTIC IMAGING REPORT ---
CHEST ONE VIEW PORTABLE CLINICAL HISTORY: Sepsis. COMPARISON STUDY: Chest radiograph May 22, 2018. FINDINGS: There is no pneumothorax or pleural effusion. Moderate cardiomegaly is unchanged. There is no evidence for pulmonary edema. There is no consolidation to suggest pneumonia. Extensive vascular calcification of the thoracic aorta is noted. IMPRESSION: No acute cardiopulmonary findings. No change in appearance of the chest. Electronically signed by: Charlie Hayden M.D. 07/03/2018 11:28 AM Dictated Date/Time: 07/03/2018 11:27 AM
[2018-07-03 11:58] LABS: ALBUMIN 1.9 gm/dl (3.4-5.0); ALKALINE PHOSPHATASE 222 U/L (45-117); ALT/SGPT 26 U/L (12-78); AST/SGOT 34 U/L (15-37); BLOOD UREA NITROGEN 71 mg/dl (7-18); CARBON DIOXIDE 26 mmol/L (21-32); CREATININE 4.78 mg/dl (0.60-1.20); GLUCOSE 76 mg/dl (70-99); POTASSIUM 5.2 mmol/L (3.5-5.1); SODIUM 138 mmol/L (136-145); TOTAL PROTEIN 7.7 gm/dl (6.4-8.2)
--- NOTE | 2018-07-03 12:49 | DIAGNOSTIC IMAGING REPORT ---
CT HEAD WITHOUT CONTRAST (CT) CLINICAL HISTORY: Change in mental status. Confusion. COMPARISON STUDY: 05/22/2018 TECHNIQUE: Axial CT of the brain is performed from the vertex to the skull base. IV contrast was not administered for this examination. A dose lowering technique was utilized adhering to the principles of ALARA. CT DOSE: 614.27 mGy.cm FINDINGS: No intra or extra-axial mass lesions are visualized. There is no CT evidence of acute cortical infarction. There is no evidence of midline shift. There is no acute hemorrhage. No calvarial fractures are visualized. There are patchy white matter hypodensities likely on a small vessel basis. Old lacunar infarcts are visualized within the right basal ganglia and left thalamus. The left thalamic infarct was not visualized the prior study but is not felt to be acute. There is no evidence of pathologic ventricular dilatation. There is partial opacification of both maxillary sinuses. There is opacification of anterior left-sided ethmoid air cells as well as the left frontal sinus. This finding was present on the preceding study. IMPRESSION: 1. No acute intracranial findings. A tiny left thalamic infarct, while not felt to be acute was not visualized the preceding study 2. Persistent inflammatory changes within the paranasal sinuses Electronically signed by: Og Mahan M.D. 07/03/2018 12:48 PM Dictated Date/Time: 07/03/2018 12:45 PM
--- NOTE | 2018-07-03 13:47 | History and Physical ---
History & Physical Date & Time of Service: Jul 03, 2018 at 13:39 Chief Complaint: Confused Primary Care Physician: Wing Toro M.D. History of Present Illness Source: patient, hospital records, other 71 y/o F [place] resident w/Hx CAD, DM, HTN, dementia, COPD, diastolic CHF, PAF, hypothyroidism, gout, ESRD. The pt presents to the hospital frequently due to AMS. She apparently became confused at her nursing facility today and was sent in for evaluation prior to having received dialysis. She is unable to provide any pertinent information. She is afebrile on arrival to the ER and there are no immediate foci of infection identified. She does have a decub ulcer and some surrounding erythema, although this appears fairly minor. She does not have a fever or leukocytosis at the time of admission. The pt's previous admissions with AMS have been attributed to medications, infections and her dialysis status. Past Medical/Surgical History Medical Problems: 1) CAD - LAD stent 2011 2) COPD 3) Depression 4) DM II 5) Diastolic CHF - echo 05/31/16 LVEF 55-60%, mild concentric L ventricular hypertrophy 6) Dyslipidemia 7) End-stage renal disease on hemodialysis 8) Gout 9) HTN 10) Hypothyroidism 11) Paroxysmal atrial fibrillation Surgical: 1) BL ankle surgery 2) Hernia repair 3) Appendectomy 4) Nasal septoplasty 5) Repair of rotator cuff 6) Right elbow surgery Family History Cancer Heart disease Hypertension Social History Smoking Status: Former Smoker Drug Use: none Marital Status: Housing status: [facility] Occupational Status: retired Immunizations History of Influenza Vaccine: Yes Influenza Vaccine Date: Nov 22, 2012 History of Tetanus Vaccine?: UTD Tetanus Immunization Date: Nov 25, 2012 History of Pneumococcal: Yes Pneumococcal Date: Nov 25, 2012 History of Hepatitis B Vaccine: No Allergies Coded Allergies: Amoxicillin (Verified Allergy, Intermediate, HIVES, 07/03/18) HAS TOLERATED CEFEPIME, KEFLEX, AND ROCEPHIN IN PAST ADMISSIONS Clavulanic Acid (Verified Allergy, Intermediate, HIVES, 07/03/18) hives NSAIDs (Verified Allergy, Unknown, UNKNOWN, 07/03/18) JARET Inhibitors (Verified Adverse Reaction, Mild, HYPERKALEMIA, 07/03/18) 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 Home Medications Scheduled Acetaminophen (Sb Non-Aspirin Extra Stre), 1,000 MG PO BID Allopurinol (Zyloprim), 100 MG PO QAM Amiodarone Hcl (Cordarone), 200 MG PO QAM Aspirin (Aspirin 81), 81 MG PO QAM Atorvastatin (Lipitor), 40 MG PO HS Bisacodyl (Bisacodyl Ec), 5 MG PO Q2D Clopidogrel (Plavix), 75 MG PO QAM Duloxetine HCl (Cymbalta), 30 MG PO HS Levothyroxine Sodium (Synthroid), 75 MCG PO QAM Lisinopril (Zestril), 10 MG PO QAM Mirtazapine (Mirtazapine), 7.5 MG PO HS Multiple Vitamins W/ Minerals (Preservision Areds), 1 CAP PO DAILY Nutritional Supplements (Boost), 1 CAN PO BIDM Omeprazole (Prilosec), 40 MG PO QAM Polyethylene Glycol 3350 (Miralax), 17 GM PO DAILY Senna/Docusate Sod (Senokot S), 2 TABS PO BID Sevelamer Carbonate (Renvela), 1,600 MG PO TIDM Umeclidinium [place] (Incruse Ellipta), 1 PUFF INH QAM Vitamin B Cmplx/Vitc/Folic Ac (Nephrocaps), 1 CAP PO DAILY [2 Sky/cc Supplement], 150 ML PO QID [liquid protein], 1 DOSE PO TID Scheduled PRN Acetaminophen (Tylenol), 650 MG RE Q6H PRN for Pain or Fever Acetaminophen Tab (Tylenol), 650 MG PO Q6H PRN for Pain or Fever Albuterol Sulfate (Albuterol Sulfate), 1 VIAL NEB Q6H PRN for SOB/Wheezing Bisacodyl (Dulcolax), 1 SUPP OH UD PRN for Constipation Dextrose (Diabetic Use) (Insta-Glucose), 1 DOSE PO UD PRN for Hypoglycemia Protocol Glucagon (Glucagon Emergency Kit), 1 MG IM UD PRN for Hypoglycemia Treatment Guaifenesin (Guaifenesin), 10 ML PO Q4H PRN for Cough/Congestion Magnesium Citrate (Citrate Of [place]), 300 MG PO UD PRN for Severe Constipation Mineral Oil (Fleet Oil), 1 EA OH UD PRN for Constipation Mineral Oil (Fleet Oil), 1 EA OH UD PRN for Severe Constipation Ondansetron Hcl (Zofran), 4 MG PO Q6H PRN for Nausea or Vomiting Sevelamer Carbonate (Renvela), 800 MG PO UD PRN for CKD Review of Systems Cannot obtain ROS from pt - sent in for AMS as above Physical Exam Vital Signs Date Time Temp Pulse Resp B/P (MAP) Pulse Ox O2 Delivery O2 Flow Rate FiO2 07/03/18 12:00 70 12 113/44 99 Room Air 07/03/18 11:30 86 16 160/63 98 Room Air 07/03/18 11:24 95 07/03/18 10:29 37.0 95 16 168/115 100 Room Air 07/03/18 10:29 99 Room Air Overweight, elderly F - no distress - says "ow" no matter where she is touched Head: normocephalic Eyes: normal inspection ENT: normal ENT inspection, + pertinent finding (She would not open her mouth - there may be a small ulcer on the tip of her tongue) Neck: + pertinent finding (Neck moves easily - she says "ow" when neck is moved , however, she repeats this throughout exam) Respiratory/Chest: chest non-tender, + pertinent finding (Poor effort - poor air movement - no crackle/wheezing) Abdomen/GI: normal bowel sounds, non tender, soft Back: + pertinent finding (Small decub ulcer - surrounding erythema) Neurologic/Psych: + pertinent finding (She moves all extrems - she responds partially to commands - speech is garbled and she is entirely disoriented - cannot cooperate with extensive neuro exam) Skin: + pertinent finding (Smal decub ulcer as above - sacral ) Diagnostics Laboratory Results Results Past 24 Hours Test 07/03/18 11:10 07/03/18 11:16 Range/Units White Blood Count 4.98 4.8-10.8 K/uL Red Blood Count 4.07 4.2-5.4 M/uL Hemoglobin 12.7 12.0-16.0 g/dL Hematocrit 40.9 37-47 % Mean Corpuscular Volume 100.5 80-100 fL Mean Corpuscular Hemoglobin 31.2 25-34 pg Mean Corpuscular Hemoglobin Concent 31.1 32-36 g/dl Platelet Count 157 130-400 K/uL Mean Platelet Volume 11.7 7.4-10.4 fL Neutrophils (%) (Auto) 61.2 % Lymphocytes (%) (Auto) 19.7 % Monocytes (%) (Auto) 12.7 % Eosinophils (%) (Auto) 5.8 % Basophils (%) (Auto) 0.4 % Neutrophils # (Auto) 3.05 1.4-6.5 K/uL Lymphocytes # (Auto) 0.98 1.2-3.4 K/uL Monocytes # (Auto) 0.63 0.11-0.59 K/uL Eosinophils # (Auto) 0.29 0-0.5 K/uL Basophils # (Auto) 0.02 0-0.2 K/uL RDW Standard Deviation 64.7 36.4-46.3 fL RDW Coefficient of Variation 17.3 11.5-14.5 % Immature Granulocyte % (Auto) 0.2 % Immature Granulocyte # (Auto) 0.01 0.00-0.02 K/uL Prothrombin Time 10.8 9.0-12.0 SECONDS Prothromb Time International Ratio 1.0 0.9-1.1 Activated Partial Thromboplast Time 31.0 21.0-31.0 SECONDS Partial Thromboplastin Ratio 1.2 Sodium Level 138 136-145 mmol/L Potassium Level 5.2 3.5-5.1 mmol/L Chloride Level 105 98-107 mmol/L Carbon Dioxide Level 26 21-32 mmol/L Anion Gap 7.0 3-11 mmol/L Blood Urea Nitrogen 71 7-18 mg/dl Creatinine 4.78 0.60-1.20 mg/dl Estimated GFR () 9.8 Estimated GFR (Non- 8.4 BUN/Creatinine Ratio 15.1 10-20 Random Glucose 76 70-99 mg/dl Calcium Level 9.0 8.5-10.1 mg/dl Magnesium Level 2.3 1.8-2.4 mg/dl Total Bilirubin 0.5 0.2-1 mg/dl Aspartate Amino Transf (AST/SGOT) 34 15-37 U/L Alanine Aminotransferase (ALT/SGPT) 26 12-78 U/L Alkaline Phosphatase 222 45-117 U/L Total Protein 7.7 6.4-8.2 gm/dl Albumin 1.9 3.4-5.0 gm/dl Globulin 5.8 2.5-4.0 gm/dl Albumin/Globulin Ratio 0.3 0.9-2 Bedside Lactic Acid Venous 1.14 0.90-1.70 mmol/L Microbiology Results 07/03/18 Blood Culture, Received Pending 07/03/18 Blood Culture, Received Pending CXR normal Impression Assessment and Plan 71 y/o F [place] resident w/Hx CAD, DM, HTN, dementia, COPD, diastolic CHF, PAF, hypothyroidism, gout, ESRD. The pt presents to the hospital frequently due to AMS. She apparently became confused at her nursing facility today and was sent in for evaluation prior to having received dialysis. She is unable to provide any pertinent information. She is afebrile on arrival to the ER and there are no immediate foci of infection identified. She does have a decub ulcer and some surrounding erythema, although this appears fairly minor. She does not have a fever or leukocytosis at the time of admission. 1) AMS - may be due to underlying dementia and dialysis status - we do not currently have evidence of infection. There have not been any significant changes to her med schedule reported. She received IVF in the ER. We will consider antibiotics if there is any sign of systemic infection. The dialysis service has been contacted and she can likely be reassessed following. 2) ESRD - pt will receive dialysis today as she missed her AM session in order to attend the hospital. 3) Sacral ulcer - we will consult wound care to treat topically for now. 4) Hx CAD - cont ASA, Plavix, Statin 5) COPD - no evidence of exacerbation - cont PRN Albuterol 6) PAF - Sinus on admission - cont Amio - does not take anticoagulation regularly 7) Diastolic CHF - volume status is managed with dialysis 8) DM - placed on a SS DNR - Heparin prophylaxis Total time for this admit including review of labs, meds, imaging, extensive records - discussion with pt and ER attending - 43 min Resuscitation Status VTE Prophylaxis Will order VTE Prophylaxis: Yes
[2018-07-03] MEDS ORDERED: ALUMINUM/MAGNESIUM/SIMETH (MAALOX MAX) 30 ML UDC PO PRN (14:00)
[2018-07-03] MEDS ORDERED: MAGNESIUM HYDROXIDE SUSP 30 ML UDC PO PRN (14:00)
[2018-07-03] MEDS ORDERED: ONDANSETRON INJ 2 MG/ML 2 ML VIAL IV PRN (14:00)
[2018-07-03] MEDS ORDERED: POLYETHYLENE (MIRALAX) 17 GM PACK PO PRN (14:00)
[2018-07-03] MEDS ORDERED: ALBUTEROL 0.083% NEBU SOLN 3 ML VIAL INH PRN (14:00)
[2018-07-03] MEDS ORDERED: GLUCOSE 40% GEL 15 GM TUBE PO PRN (15:15)
[2018-07-03] MEDS ORDERED: DEXTROSE 50% 50 ML SYR IV PRN (15:15)
[2018-07-03] MEDS ORDERED: GLUCOSE 10 TABS/TUBE PO PRN (15:15)
[2018-07-03] MEDS ORDERED: GLUCAGON FOR INJ 1 MG VIAL IM PRN (15:15)
[2018-07-03] MEDS: ACETAMINOPHEN 325 MG TAB PO PRN ×2 (15:42→22:05)
[2018-07-03] MEDS: INSULIN ASPART 100 UNITS/ML 3 ML PEN SC SCH ×2 (15:47→22:03)
[2018-07-03] MEDS: CARBOHYDRATES FOR HYPOGLYCEMIA PO PRN (15:50)
--- NOTE | 2018-07-03 16:24 | EMERGENCY ROOM VISIT NOTE ---
History Report prepared by Benito: Vini Glover Under the Supervision of: Dr. Weston Styles M.D. First contact with patient: 10:35 Stated Complaint: CONFUSED History of Present Illness The patient is a 73 year old female who presents to the Emergency Room with confusion. Nursing staff reports that the patient missed her regular dialysis today. She states that the detention sent the patient to the ER due to worsening confusion and tremors. She reports that the patient's blood sugar was 92 during arrival to the ER. She states that the patient initially mentioned abdominal pain, and notes that the patient continually says "ow." She states that the patient is on antibiotics for a sacral wound infection. The patient is DNR. History limited secondary to the patient's mental state. Source of History: nursing staff History Limited By: AMS Onset: today Position: other (global) Quality: other (confusion) Timing: worsening Note: tremors Review of Systems Limited second to the patient's mental state. Past Medical & Surgical Medical Problems: (1) Altered mental status (2) Altered mental status (3) CAD (coronary artery disease) (4) Cellulitis of left lower extremity without foot (5) COPD (chronic obstructive pulmonary disease) (6) Depression (7) Diabetes mellitus type 2 in obese (8) Dialysis patient (9) Diastolic CHF (10) Dyslipidemia (11) End stage renal disease (12) End-stage renal disease on hemodialysis (13) ESRD (end stage renal disease) (14) gangrene left leg (15) Gout (16) HTN (hypertension) (17) Hyperkalemia (18) Hypothyroidism (19) Loss of consciousness (20) PAF (paroxysmal atrial fibrillation) (21) Pneumonia (22) Pseudomonas urinary tract infection (23) Recurrent epistaxis (24) Sepsis (25) Syncope (26) Syncope (27) UTI (urinary tract infection) Surgical Problems: (1) bilat ankle surgery (2) Hernia, abdominal (3) History of appendectomy (4) Nasal septoplasty (5) Repair of rotator cuff by suture (6) right elbow surgery Family History Cancer Heart disease Hypertension Social History Smoking Status: Unknown if Ever Smoked Alcohol Use: none Drug Use: none Marital Status: Housing Status: detention Occupation Status: retired Current/Historical Medications Scheduled Acetaminophen (Sb Non-Aspirin Extra Stre), 1,000 MG PO BID Allopurinol (Zyloprim), 100 MG PO QAM Amiodarone Hcl (Cordarone), 200 MG PO QAM Aspirin (Aspirin 81), 81 MG PO QAM Atorvastatin (Lipitor), 40 MG PO HS Bisacodyl (Bisacodyl Ec), 5 MG PO Q2D Clopidogrel (Plavix), 75 MG PO QAM Duloxetine HCl (Cymbalta), 30 MG PO HS Levothyroxine Sodium (Synthroid), 75 MCG PO QAM Lisinopril (Zestril), 10 MG PO QAM Mirtazapine (Mirtazapine), 7.5 MG PO HS Multiple Vitamins W/ Minerals (Preservision Areds), 1 CAP PO DAILY Nutritional Supplements (Boost), 1 CAN PO BIDM Omeprazole (Prilosec), 40 MG PO QAM Polyethylene Glycol 3350 (Miralax), 17 GM PO DAILY Senna/Docusate Sod (Senokot S), 2 TABS PO BID Sevelamer Carbonate (Renvela), 1,600 MG PO TIDM Umeclidinium [place] (Incruse Ellipta), 1 PUFF INH QAM Vitamin B Cmplx/Vitc/Folic Ac (Nephrocaps), 1 CAP PO DAILY [2 Sky/cc Supplement], 150 ML PO QID [liquid protein], 1 DOSE PO TID Scheduled PRN Acetaminophen (Tylenol), 650 MG RE Q6H PRN for Pain or Fever Acetaminophen Tab (Tylenol), 650 MG PO Q6H PRN for Pain or Fever Albuterol Sulfate (Albuterol Sulfate), 1 VIAL NEB Q6H PRN for SOB/Wheezing Bisacodyl (Dulcolax), 1 SUPP AZ UD PRN for Constipation Dextrose (Diabetic Use) (Insta-Glucose), 1 DOSE PO UD PRN for Hypoglycemia Protocol Glucagon (Glucagon Emergency Kit), 1 MG IM UD PRN for Hypoglycemia Treatment Guaifenesin (Guaifenesin), 10 ML PO Q4H PRN for Cough/Congestion Magnesium Citrate (Citrate Of [place]), 300 MG PO UD PRN for Severe Constipation Mineral Oil (Fleet Oil), 1 EA AZ UD PRN for Constipation Mineral Oil (Fleet Oil), 1 EA AZ UD PRN for Severe Constipation Ondansetron Hcl (Zofran), 4 MG PO Q6H PRN for Nausea or Vomiting Sevelamer Carbonate (Renvela), 800 MG PO UD PRN for CKD Allergies Coded Allergies: Amoxicillin (Verified Allergy, Intermediate, HIVES, 07/03/18) HAS TOLERATED CEFEPIME, KEFLEX, AND ROCEPHIN IN PAST ADMISSIONS Clavulanic Acid (Verified Allergy, Intermediate, HIVES, 07/03/18) hives NSAIDs (Verified Allergy, Unknown, UNKNOWN, 07/03/18) JARET Inhibitors (Verified Adverse Reaction, Mild, HYPERKALEMIA, 07/03/18) [facility] 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 Physical Exam Vital Signs Date Time Temp Pulse Resp B/P (MAP) Pulse Ox O2 Delivery O2 Flow Rate FiO2 07/03/18 14:00 79 20 88 07/03/18 12:00 70 12 113/44 99 Room Air 07/03/18 11:30 86 16 160/63 98 Room Air 07/03/18 11:24 95 07/03/18 10:29 37.0 95 16 168/115 100 Room Air 07/03/18 10:29 99 Room Air Physical Exam GENERAL: Patient is in no acute distress. HEENT: No acute trauma, normocephalic atraumatic, mucous membranes dry, no nasal congestion, no scleral icterus. NECK: No stridor, no adenopathy, no meningismus, trachea is midline. LUNGS: Clear to auscultation bilaterally, no wheeze, no rhonchi, breath sounds equal. HEART: 3/6 systolic murmur, regular rate and rhythm ABDOMEN: Soft, nontender, bowel sounds positive, reducible nontender umbilical hernia, no peritonitis. EXTREMITIES: No cyanosis or edema, full range of motion of all the joints without pain or difficulty, no signs for acute trauma. Left above the knee amputation. BACK: Mid-sacral ulcer with some surrounding erythema. NEUROLOGIC: Awake, confused. No focal motor deficits. SKIN: No rash, no jaundice, no diaphoresis. Medical Decision & Procedures ER Provider Diagnostic Interpretation: Radiology results as stated below per my review and radiologist interpretation: CHEST ONE VIEW PORTABLE CLINICAL HISTORY: Sepsis. COMPARISON STUDY: Chest radiograph May 22, 2018. FINDINGS: There is no pneumothorax or pleural effusion. Moderate cardiomegaly is unchanged. There is no evidence for pulmonary edema. There is no consolidation to suggest pneumonia. Extensive vascular calcification of the thoracic aorta is noted. IMPRESSION: No acute cardiopulmonary findings. No change in appearance of the chest. Electronically signed by: Charlie Hayden M.D. 07/03/2018 11:28 AM Dictated Date/Time: 07/03/2018 11:[address] HEAD WITHOUT CONTRAST (CT) CLINICAL HISTORY: Change in mental status. Confusion. COMPARISON STUDY: 05/22/2018 TECHNIQUE: Axial CT of the brain is performed from the vertex to the skull base. IV contrast was not administered for this examination. A dose lowering technique was utilized adhering to the principles of ALARA. CT DOSE: 614.27 mGy.cm FINDINGS: No intra or extra-axial mass lesions are visualized. There is no CT evidence of acute cortical infarction. There is no evidence of midline shift. There is no acute hemorrhage. No calvarial fractures are visualized. There are patchy white matter hypodensities likely on a small vessel basis. Old lacunar infarcts are visualized within the right basal ganglia and left thalamus. The left thalamic infarct was not visualized the prior study but is not felt to be acute. There is no evidence of pathologic ventricular dilatation. There is partial opacification of both maxillary sinuses. There is opacification of anterior left-sided ethmoid air cells as well as the left frontal sinus. This finding was present on the preceding study. IMPRESSION: 1. No acute intracranial findings. A tiny left thalamic infarct, while not felt to be acute was not visualized the preceding study 2. Persistent inflammatory changes within the paranasal sinuses Electronically signed by: Og Mahan M.D. 07/03/2018 12:48 PM Dictated Date/Time: 07/03/2018 12:45 PM Laboratory Results 07/03/18 11:10 Red Blood Count 4.07, Mean Corpuscular Volume 100.5, Mean Corpuscular Hemoglobin 31.2, Mean Corpuscular Hemoglobin Concent 31.1, Mean Platelet Volume 11.7, Neutrophils (%) (Auto) 61.2, Lymphocytes (%) (Auto) 19.7, Monocytes (%) ( Auto) 12.7, Eosinophils (%) (Auto) 5.8, Basophils (%) (Auto) 0.4, Neutrophils # (Auto) 3.05, Lymphocytes # (Auto) 0.98, Monocytes # (Auto) 0.63, Eosinophils # ( Auto) 0.29, Basophils # (Auto) 0.02 07/03/18 11:10 Test 07/03/18 11:10 07/03/18 11:16 White Blood Count 4.98 K/uL (4.8-10.8) Red Blood Count 4.07 M/uL (4.2-5.4) Hemoglobin 12.7 g/dL (12.0-16.0) Hematocrit 40.9 % (37-47) Mean Corpuscular Volume 100.5 fL (80-100) Mean Corpuscular Hemoglobin 31.2 pg (25-34) Mean Corpuscular Hemoglobin Concent 31.1 g/dl (32-36) Platelet Count 157 K/uL (130-400) Mean Platelet Volume 11.7 fL (7.4-10.4) Neutrophils (%) (Auto) 61.2 % Lymphocytes (%) (Auto) 19.7 % Monocytes (%) (Auto) 12.7 % Eosinophils (%) (Auto) 5.8 % Basophils (%) (Auto) 0.4 % Neutrophils # (Auto) 3.05 K/uL (1.4-6.5) Lymphocytes # (Auto) 0.98 K/uL (1.2-3.4) Monocytes # (Auto) 0.63 K/uL (0.11-0.59) Eosinophils # (Auto) 0.29 K/uL (0-0.5) Basophils # (Auto) 0.02 K/uL (0-0.2) RDW Standard Deviation 64.7 fL (36.4-46.3) RDW Coefficient of Variation 17.3 % (11.5-14.5) Immature Granulocyte % (Auto) 0.2 % Immature Granulocyte # (Auto) 0.01 K/uL (0.00-0.02) Prothrombin Time 10.8 SECONDS (9.0-12.0) Prothromb Time International Ratio 1.0 (0.9-1.1) Activated Partial Thromboplast Time 31.0 SECONDS (21.0-31.0) Partial Thromboplastin Ratio 1.2 Anion Gap 7.0 mmol/L (3-11) Estimated GFR () 9.8 Estimated GFR (Non- 8.4 BUN/Creatinine Ratio 15.1 (10-20) Calcium Level 9.0 mg/dl (8.5-10.1) Magnesium Level 2.3 mg/dl (1.8-2.4) Total Bilirubin 0.5 mg/dl (0.2-1) Aspartate Amino Transf (AST/SGOT) 34 U/L (15-37) Alanine Aminotransferase (ALT/SGPT) 26 U/L (12-78) Alkaline Phosphatase 222 U/L (45-117) Total Protein 7.7 gm/dl (6.4-8.2) Albumin 1.9 gm/dl (3.4-5.0) Globulin 5.8 gm/dl (2.5-4.0) Albumin/Globulin Ratio 0.3 (0.9-2) Bedside Lactic Acid Venous 1.14 mmol/L (0.90-1.70) Laboratory results reviewed by me. Medications Administered Medications (Trade) Dose Ordered Sig/Gelacio Route Start Time Stop Time Status Last Admin Dose Admin Sodium Chloride 500 ml @ 999 mls/hr Q31M ONCE IV 07/03/18 10:43 07/03/18 11:13 DC 07/03/18 10:43 999 MLS/HR Cefepime HCl 2000 mg/Dextrose 112.5 ml @ 225 mls/hr NOW ONCE IV 07/03/18 10:45 07/03/18 11:14 DC 07/03/18 11:52 225 MLS/HR Acetaminophen (Tylenol Tab) 650 mg Q4H PRN PO 07/03/18 14:00 08/02/18 13:59 07/03/18 15:42 650 MG ECG Per My Interpretation Indication: altered mental status Rate (beats per minute): 95 Rhythm: normal sinus Findings: other (LVH. No ST elevation. No PVCs.) ED Course 1035: The patient was evaluated in room A4B. A complete history and physical exam was performed. 1043: Ordered Sodium Chloride 500 ml @ 999 mls/hr IV 1045: Ordered Cefepime HCl 2000 mg/Dextrose 112.5 ml @ 225 mls/hr IV 1327: I checked on the patient, who is still confused. 1331: I consulted Dr. Smith - [facility] Hospitalist. He will reevaluate the patient for hospitalization. Medical Decision Differential diagnosis: sepsis, cellulitis, dehydration, electrolyte imbalance, pneumonia, stroke, intracranial bleeding There is no leukocytosis or concerning anemia. Renal panel testing shows a high creatinine consistent with her dialysis need. No other concerning abnormalities requiring correction. There was no hepatitis. Brain CT showed no acute bleed or mass-effect. EKG showed a sinus rhythm, no acute ischemia. Lactic acid level was not elevated making sepsis less likely. Blood cultures are pending. Chest film did not show pneumonia or CHF. On exam, the patient did have a sacral ulcer with some surrounding erythema and early cellulitis. She was moving all extremities equally, she was confused. The patient received IV saline, she was given IV cefepime as antibiotic coverage. The patient remains confused. She is awake. She is going to require a hospital stay for the change in mental status. She does need dialysis. The cause for her presentation is unclear at this point. She has had this type of issue though before. I did speak with the patient and case management. The on- call hospitalist was consulted. Medication Reconcilliation Current Medication List: was personally reviewed by me Blood Pressure Screening Patient's blood pressure: Elevated blood pressure Blood pressure disposition: Referred to PCP Consults Time Called: 1329 Consulting Physician: Dr. Sarah Mckeon [facility] Hospitalist Returned Call: [phone] Sarah Mckeon [facility] Hospitalist. He will reevaluate the patient for hospitalization. Impression Primary Impression: Change in mental status Additional Impressions: Confusion Sacral ulcer Scribe Attestation The scribe's documentation has been prepared under my direction and personally reviewed by me in its entirety. I confirm that the note above accurately reflects all work, treatment, procedures, and medical decision making performed by me. Departure Information Dispostion Being Evaluated By Hospitalist Referrals [facility] Problem Qualifiers
[2018-07-03] MEDS: BOOST VANILLA OR BOOST GLUCOSE CONTROL CHOCOLATE PO SCH (17:12)
[2018-07-03] MEDS: SEVELAMER HYDROCH 800 MG TAB PO SCH (17:12)
--- NOTE | 2018-07-03 17:29 | Nephrology Consultation ---
Nephrology Consultation Date of Consultation: Jul 03, 2018. Attending Physician: Dr Smith Requesting Physician: Dr Smith Reason for Consultation: ESRD History of Present Illness 73 year old female w/ ESRD, DM, HFpEF, copd, osteomyelitis s/p L BKA 03/2018, admission here for sepsis 04/2018, chronic sacral decubitus whom I'm asked to evaluate for ESRD care after she was sent from her facility d/t altered MS, worsening tremors. Her last HD was 07/01. She has had similar presentations in the past, attributed at times to infection or possibly to hemodynamic changes w / HD; at times no definite cause to acute MS change found. She has been afebrile today before and since presentation w/ sbp 160s. In ER she had 500 mL NS and a dose of cefepime. Past Medical/Surgical History -End-stage renal disease on chronic hemodialysis MWF via [facility] -type 2 diabetes -COPD -heart failure, EF 60% w/ mild , mild [facility] 11/2016 -HF -admitted here 04/28-05/04 w/ sepsis attributed to pseudomonal uti -gout -hypothyroidism -dementia -paroxysmal AFib -history of pneumonia, sepsis, urinary tract infection -peripheral vascular disease -osteomyelitis status post left above-knee amputation 03/2018 -bilateral ankle surgery -abdominal hernia surgery -s/p appendectomy, nasal septoplasty, repair of rotator cuff by suture Family History Cancer Heart disease Hypertension Social History Smoking Status: Former Smoker Alcohol Use: none Drug Use: none Marital Status: Housing Status: jail Occupation Status: retired Allergies Coded Allergies: Amoxicillin (Verified Allergy, Intermediate, HIVES, 07/03/18) HAS TOLERATED CEFEPIME, KEFLEX, AND ROCEPHIN IN PAST ADMISSIONS Clavulanic Acid (Verified Allergy, Intermediate, HIVES, 07/03/18) hives NSAIDs (Verified Allergy, Unknown, UNKNOWN, 07/03/18) JARET Inhibitors (Verified Adverse Reaction, Mild, HYPERKALEMIA, 07/03/18) [facility] 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 Medications Current Inpatient Medications Medications (Trade) Dose Ordered Sig/Gelacio Route Start Time Stop Time Status Last Admin Dose Admin Allopurinol (Zyloprim Tab) 100 mg QAM PO 07/04/18 08:00 08/03/18 08:59 Amiodarone HCl (Cordarone Tab) 200 mg QAM PO 07/04/18 08:00 08/03/18 08:59 Aspirin (Ecotrin Tab) 81 mg QAM PO 07/04/18 08:00 08/03/18 08:59 Atorvastatin Calcium (Lipitor Tab) 40 mg HS PO 07/03/18 21:00 08/02/18 20:59 Clopidogrel Bisulfate (plAVix TAB) 75 mg QAM PO 07/04/18 08:00 08/03/18 08:59 Duloxetine HCl (Cymbalta Cap) 30 mg HS PO 07/03/18 21:00 08/02/18 20:59 Levothyroxine Sodium (Synthroid Tab) 75 mcg DAILYBB PO 07/04/18 06:30 08/03/18 06:59 Lisinopril (Zestril Tab) 10 mg QAM PO 07/04/18 08:00 08/03/18 08:59 Enteral Nutritional Formula (Boost) 1 can BIDM PO 07/03/18 17:00 08/02/18 17:59 Senna/Docusate Sodium (Senokot S Tab) 2 tab BID PO 07/03/18 20:00 08/02/18 20:59 Vitamin B Complex/ Vit C/Folic Acid (Nephrocaps) 1 cap DAILY PO 07/04/18 08:00 08/03/18 08:59 Albuterol Sulfate (Ventolin 0.083% 2.5MG/3ML Neb) 2.5 mg Q6H PRN INH 07/03/18 14:00 08/02/18 13:59 Mirtazapine (Remeron Tab) 7.5 mg HS PO 07/03/18 21:00 08/02/18 20:59 Pantoprazole Sodium (Protonix Tab) 40 mg QAM PO 07/04/18 08:00 08/03/18 08:59 Sevelamer HCl (Renagel Tab) 1,600 mg TIDM PO 07/03/18 17:00 08/02/18 17:59 Miscellaneous Information (Order Awaiting Action) 1 ea QS N/A 07/03/18 16:00 08/02/18 15:59 Acetaminophen (Tylenol Tab) 650 mg Q4H PRN PO 8/22/18 14:00 08/02/18 13:59 07/03/18 15:42 650 MG Al Hydrox/Mg Hydrox/Simethicone (Maalox Max Susp) 15 ml Q4H PRN PO 07/03/18 14:00 08/02/18 13:59 Magnesium Hydroxide (Milk Of Magnesia Susp) 30 ml Q6H PRN PO 07/03/18 14:00 08/02/18 13:59 Polyethylene (Miralax Powder Packet) 17 gm DAILY PRN PO 07/03/18 14:00 08/02/18 13:59 Ondansetron HCl (Zofran Inj) 4 mg Q6H PRN IV 07/03/18 14:00 08/02/18 13:59 Heparin Sodium (Porcine) (Heparin Sq 5000 Unit/0.5ml) 5,000 unit Q12H SQ 07/03/18 21:00 08/02/18 20:59 Insulin Aspart (novoLOG ASPART) SLIDING SCALE G... Q6H SC 07/03/18 15:00 08/02/18 14:59 Glucose (Glucose 40% Gel) 15-30 GRAMS 15 GRAMS... UD PRN PO 07/03/18 15:15 08/02/18 15:14 Glucose (Glucose Chew Tab) 4-8 Tablets 4 Tabl... UD PRN PO 07/03/18 15:15 08/02/18 15:14 Dextrose (Dextrose 50% 50ML Syringe) 25-50ML 25ML FOR ... UD PRN IV 07/03/18 15:15 08/02/18 15:14 Glucagon (Glucagon Inj) 1 mg UD PRN IM 07/03/18 15:15 08/02/18 15:14 Carbohydrates (Carbohydrates For Hypoglycemia) 15-30 GRAMS 15 grams if BSG 54-69... UD PRN PO 07/03/18 15:15 08/02/18 15:14 07/03/18 15:50 15 GM Home Meds and Scripts Medications Dose Route/Sig Max Daily Dose Days Date Category Dose Instructions Sb Non-Aspirin Extra Stre (Acetaminophen) 500 Mg Tab 1,000 Mg PO BID 05/25/18 Rx Boost (Nutritional Supplements) 1 Liq Liq 1 Can PO BIDM 30 05/03/18 Rx Zestril (Lisinopril) 10 Mg Tab 10 Mg PO QAM 30 05/03/18 Rx Dulcolax (Bisacodyl) 10 Mg Sup 1 Supp MS UD PRN 04/27/18 Reported NEEDED FOR NO BOWEL MOVEMENT IN 3 DAYS Albuterol Sulfate 1.25 Mg/3 Ml Neb 1 Vial NEB Q6H PRN 04/27/18 Reported Glucagon Emergency Kit (Glucagon) 1 Mg Kit 1 Mg IM UD PRN 04/27/18 Reported NEEDED FOR BLOOD GLUCOSE LESS THN 60 AND/OR SYMPTOMATIC/UNRESPONSIVE HYPOGLYCEMIA. MAY REPEAT DOSE IN 15 MINUTES IF NEEDED. Guaifenesin Unknown Strength Syp 10 Ml PO Q4H PRN 04/27/18 Reported Citrate Of Megnesia (Magnesium Citrate) 1 Italia Italia 300 Mg PO UD PRN 04/27/18 Reported Fleet Oil (Mineral Oil) 1 Delmy Delmy 1 Ea MS UD PRN 04/27/18 Reported Fleet Oil (Mineral Oil) 1 Delmy Delmy 1 Ea MS UD PRN 04/27/18 Reported IF AFTER 8 HOURS NO RESULTS FROM DULCOLAX SUPPOSITORY GIVE ENEMA IF NO RESULTS FROM ENEMA NOTIFY MD [2 Sky/cc Supplement] 150 Ml PO QID 04/27/18 Reported EVERY SUNDAY,SUNDAY AND SUNDAY ADMINISTER AT 0400, 1200 , 1600 and 2100 HOURS ALL OTHER DAYS ADMINISTER AT 0900, 1200, 1600 and 2100 HOURS Preservision Areds (Multiple Vitamins W/ Minerals) 1 Cap Cap 1 Cap PO DAILY 04/27/18 Reported Lipitor (Atorvastatin Calcium) 40 Mg Tab 40 Mg PO HS 04/27/18 Reported Cymbalta (Duloxetine HCl) 30 Mg Cap 30 Mg PO HS 04/27/18 Reported Bisacodyl Ec (Bisacodyl) 5 Mg Tab 5 Mg PO Q2D 04/27/18 Reported [liquid protein] 1 Dose PO TID 03/14/18 Reported EVERY SUNDAY,SUNDAY AND SUNDAY ADMINISTER AT 0430, 1500 AND 2000 HOURS ALL OTHER DAYS ADMINISTER AT 1000, 1500 AND 2000 HOURS Nephrocaps (Vitamin B Complex/Vit C/Folic Acid) Cap 1 Cap PO DAILY 03/14/18 Reported Incruse Ellipta (Umeclidinium Woden) 62.5 Mcg/Inh Inh 1 Puff INH QAM 03/14/18 Reported EVERY SUNDAY,SUNDAY AND VIPUL ADMINISTER AT 0430 HOURS ALL OTHER DAYS ADMINISTER AT 0900 HOURS Senokot S (Senna/Docusate Sodium) 1 Tab Tab 2 Tabs PO BID 03/12/18 Reported Miralax (Polyethylene Glycol 3350) 1 Pow Pow 17 Gm PO DAILY 03/12/18 Reported HOLD IF HAVING LOOSE STOOLS Insta-Glucose (Dextrose (Diabetic Use)) 77.4 % Gel 1 Dose PO UD PRN 12/13/17 Reported NEEDED FOR BLOOD GLUCOSE LESS THAN 60 AND/OR SYMPTOMATIC HYPOGLYCEMIA. MUST BE RESPONSIVE AND ABLE TO SAFELY SWALLOW. Zyloprim (Allopurinol) 100 Mg Tab 100 Mg PO QAM 10/25/17 Reported EVERY SUNDAY,SUNDAY AND SUNDAY ADMINISTER AT 0430 HOURS ALL OTHER DAYS ADMINISTER AT 0900 HOURS Zofran (Ondansetron HCl) 4 Mg Tab 4 Mg PO Q6H PRN 08/26/17 Reported Tylenol (Acetaminophen) 650 Mg Supp 650 Mg RE Q6H PRN 08/26/17 Reported NEEDED FOR PAIN RATED 1-5 ON A SCALE OF "0-10" OR FOR ELEVATED TEMPERATURE GREATER THAN 101 F. DO NOT EXCEED 3 GM APAP/24 HOURS. Tylenol (Acetaminophen) 325 Mg Tab 650 Mg PO Q6H PRN 08/26/17 Reported NEEDED FOR PAIN RATED 1-5 ON A SCALE OF "0-10" OR FOR ELEVATED TEMPERATURE GREATER THAN 101 F. DO NOT EXCEED 3 GM APAP/24 HOURS. Mirtazapine 7.5 Mg Tab 7.5 Mg PO HS 08/03/17 Reported Cordarone (Amiodarone Hcl) 200 Mg Tab 200 Mg PO QAM 08/03/17 Reported EVERY SUNDAY,SUNDAY AND SUNDAY ADMINISTER AT 0430 HOURS ALL OTHER DAYS ADMINISTER AT 0900 HOURS Renvela (Sevelamer Carbonate) 800 Mg Tab 800 Mg PO UD PRN 12/01/16 Reported RELATED TO END STAGE RENAL DISEASE Prilosec (Omeprazole) 20 Mg Capcr 40 Mg PO QAM 12/01/16 Reported EVERY SUNDAY,SUNDAY AND SUNDAY ADMINISTER AT 0430 HOURS ALL OTHER DAYS ADMINISTER AT 0730 HOURS Aspirin 81 (Aspirin) 81 Mg Tab 81 Mg PO QAM 10/23/16 Reported EVERY SUNDAY,SUNDAY AND SUNDAY ADMINISTER AT 0430 HOURS ALL OTHER DAYS ADMINISTER AT 0900 HOURS Plavix (Clopidogrel Bisulfate) 75 Mg Tab 75 Mg PO QAM 10/09/16 Reported EVERY SUNDAY,SUNDAY AND SUNDAY ADMINISTER AT 0430 HOURS ALL OTHER DAYS ADMINISTER AT 0900 HOURS Renvela (Sevelamer Carbonate) 800 Mg Tab 1,600 Mg PO TIDM 02/01/15 Reported EVERY SUNDAY,SUNDAY AND SUNDAY ADMINISTER AT 0430, 1200 AND 1700 HOURS ALL OTHER DAYS ADMINISTER AT 0730, 1200 AND 1700 HOURS Synthroid (Levothyroxine Sodium) 75 Mcg Tab 75 Mcg PO QAM 09/24/14 Reported EVERY SUNDAY,SUNDAY AND SUNDAY ADMINISTER AT 0430 HOURS ALL OTHER DAYS ADMINISTER AT 0530 HOURS Review of Systems unable to obtain d/t pt MS Physical Exam Date Time Temp Pulse Resp B/P (MAP) Pulse Ox O2 Delivery O2 Flow Rate FiO2 07/03/18 14:59 74 22 160/39 95 07/03/18 14:16 76 07/03/18 14:00 79 20 88 07/03/18 12:00 70 12 113/44 99 Room Air 07/03/18 11:30 86 16 160/63 98 Room Air 07/03/18 11:24 95 07/03/18 10:29 37.0 95 16 168/115 100 Room Air 07/03/18 10:29 99 Room Air General Appearance: WD/WN, + pertinent finding (on RA, appears chronically ill ; awake, being fed, oriented to self) Eyes: EOMI ENT: hearing grossly normal, + pertinent finding (edentulous) Neck: supple Respiratory/Chest: no respiratory distress, no accessory muscle use, + decreased breath sounds Cardiovascular: regular rate, rhythm, no edema Abdomen: normal bowel sounds, + tenderness (diffuse, nonspecific) Extremities: + pertinent finding (LUE AVF + t/b, L AKA, very strictured L hand) Neurologic/Psych: alert, + pertinent finding (unable to answer questions > repeats "OW" but sore everywhere, can't answer where she's sore) Skin: no jaundice, warm/dry, no rash, + pertinent finding (decub not examined) Diagnostics Last 24 Hours Test 07/03/18 11:10 07/03/18 11:16 White Blood Count 4.98 K/uL Red Blood Count 4.07 M/uL Hemoglobin 12.7 g/dL Hematocrit 40.9 % Mean Corpuscular Volume 100.5 fL Mean Corpuscular Hemoglobin 31.2 pg Mean Corpuscular Hemoglobin Concent 31.1 g/dl Platelet Count 157 K/uL Mean Platelet Volume 11.7 fL Neutrophils (%) (Auto) 61.2 % Lymphocytes (%) (Auto) 19.7 % Monocytes (%) (Auto) 12.7 % Eosinophils (%) (Auto) 5.8 % Basophils (%) (Auto) 0.4 % Neutrophils # (Auto) 3.05 K/uL Lymphocytes # (Auto) 0.98 K/uL Monocytes # (Auto) 0.63 K/uL Eosinophils # (Auto) 0.29 K/uL Basophils # (Auto) 0.02 K/uL RDW Standard Deviation 64.7 fL RDW Coefficient of Variation 17.3 % Immature Granulocyte % (Auto) 0.2 % Immature Granulocyte # (Auto) 0.01 K/uL Prothrombin Time 10.8 SECONDS Prothromb Time International Ratio 1.0 Activated Partial Thromboplast Time 31.0 SECONDS Partial Thromboplastin Ratio 1.2 Sodium Level 138 mmol/L Potassium Level 5.2 mmol/L Chloride Level 105 mmol/L Carbon Dioxide Level 26 mmol/L Anion Gap 7.0 mmol/L Blood Urea Nitrogen 71 mg/dl Creatinine 4.78 mg/dl Estimated GFR () 9.8 Estimated GFR (Non- 8.4 BUN/Creatinine Ratio 15.1 Random Glucose 76 mg/dl Calcium Level 9.0 mg/dl Magnesium Level 2.3 mg/dl Total Bilirubin 0.5 mg/dl Aspartate Amino Transf (AST/SGOT) 34 U/L Alanine Aminotransferase (ALT/SGPT) 26 U/L Alkaline Phosphatase 222 U/L Total Protein 7.7 gm/dl Albumin 1.9 gm/dl Globulin 5.8 gm/dl Albumin/Globulin Ratio 0.3 Bedside Lactic Acid Venous 1.14 mmol/L Diagnostic Radiology: cxr: No acute cardiopulmonary findings. No change in appearance of the chest. Head CT 1. No acute intracranial findings. A tiny left thalamic infarct, while not felt to be acute was not visualized the preceding study 2. Persistent inflammatory changes within the paranasal sinuses EKG: NSR w/ LAD, prolonged QT, unchanged from prior Assessment & Plan 73 y/o F w/ ESRD, CAD, PVD s/p amputation, DM, HFpEF admitted from [place] w/ altered MS on 07/03. ESRD Her volume status, electrolytes, anemia are all acceptable at this time; gentle fluid removal w/ HD -missed dialysis today and will do shortened tx today 3h 15 min -no heparin w/ HD >> note new but not acute finding of small thalamic lesion on CT head -next HD tentatively for 07/05 depending on clinical status Anemia of chronic disease -no epo w/ HD until we know more about cx results -daily cbc pls Altered MS -f/u pending blood cxs; consider ammonia level >>>possibly on abtx as outpt for sacral decubitus but no abtx on her intake med list -- recommend calling facility to verify Appreciate consult; will follow with you.
[2018-07-03] MEDS: DULOXETINE (CYMBALTA) 30 MG CAP PO SCH (22:01)
[2018-07-03] MEDS: DOCUSATE SODIUM/SENNA 50/8.6MG TAB PO SCH (22:03)
[2018-07-03] MEDS: ATORVASTATIN 40 MG TAB PO SCH (22:03)
[2018-07-03] MEDS: MIRTAZAPINE TAB 15 MG TAB PO SCH (22:03)
[2018-07-03] MEDS: HEPARIN SOD 5000 UNIT/0.5 ML CARP SQ SCH (22:12)
[2018-07-04] MEDS: INSULIN ASPART 100 UNITS/ML 3 ML PEN SC SCH ×4 (03:30→21:00)
[2018-07-04 03:31] VITALS: BP 143/60; PULSE 73
[2018-07-04] MEDS: ACETAMINOPHEN 325 MG TAB PO PRN ×2 (04:21→10:47)
[2018-07-04] MEDS: LEVOTHYROXINE 75 MCG TAB PO SCH (06:09)
[2018-07-04 07:15] VITALS: BP 143/57; PULSE 71; TEMP 37.1; O2SAT 99
[2018-07-04] MEDS: DOCUSATE SODIUM/SENNA 50/8.6MG TAB PO SCH ×2 (07:16→20:00)
[2018-07-04 08:00] VITALS: O2SAT 99
[2018-07-04] MEDS ORDERED: NEPHROCAPS PO SCH (08:00)
[2018-07-04] MEDS: BOOST VANILLA OR BOOST GLUCOSE CONTROL CHOCOLATE PO SCH (08:03)
[2018-07-04] MEDS: ALLOPURINOL 100 MG TAB PO SCH (08:03)
[2018-07-04] MEDS: PANTOprazole SOD 40 MG TAB PO SCH (08:04)
[2018-07-04] MEDS: ASPIRIN 81 MG ECTAB PO SCH (08:04)
[2018-07-04] MEDS: CLOPIDOGREL BISULFATE 75 MG TAB PO SCH (08:04)
[2018-07-04] MEDS: SEVELAMER HYDROCH 800 MG TAB PO SCH ×3 (08:04→17:00)
[2018-07-04] MEDS: LISINOPRIL 10 MG TAB PO SCH (08:04)
[2018-07-04] MEDS: AMIODARONE 200 MG TAB PO SCH (08:05)
[2018-07-04] MEDS: HEPARIN SOD 5000 UNIT/0.5 ML CARP SQ SCH ×2 (08:09→21:12)
--- NOTE | 2018-07-04 08:43 | Nephrology Progress Note ---
Nephrology Progress Note Date of Service: Jul 04, 2018. Subjective tolerated dialysis yesterday w/o issue. more oriented today but confusion does emerge Objective Date Time Temp Pulse Resp B/P (MAP) Pulse Ox O2 Delivery O2 Flow Rate FiO2 07/04/18 07:15 37.1 71 16 143/57 (85) 99 Room Air 07/04/18 03:31 73 143/60 (87) 07/03/18 23:59 36.6 81 20 178/75 (109) 96 Room Air 07/03/18 21:40 Room Air 07/03/18 21:30 37.2 77 158/42 (80) 07/03/18 21:00 74 130/61 07/03/18 20:45 84 151/79 07/03/18 20:30 73 114/74 07/03/18 20:15 61 117/78 07/03/18 20:00 69 116/49 07/03/18 19:30 90 116/32 07/03/18 19:15 78 119/48 07/03/18 19:00 72 115/55 07/03/18 18:45 72 95/46 07/03/18 18:30 73 88/34 07/03/18 18:15 73 93/37 07/03/18 18:00 79 105/36 07/03/18 17:53 76 117/62 07/03/18 17:45 36.5 77 134/43 (73) 07/03/18 16:00 Room Air 07/03/18 14:59 74 22 160/39 95 07/03/18 14:16 76 07/03/18 14:00 79 20 88 07/03/18 12:00 70 12 113/44 99 Room Air 07/03/18 11:30 86 16 160/63 98 Room Air 07/03/18 11:24 95 07/03/18 10:29 37.0 95 16 168/115 100 Room Air 07/03/18 10:29 99 Room Air Physical Exam: General Appearance: WD/WN, + pertinent finding (on RA, appears chronically ill ; awake, oriented to self & place) Eyes: EOMI ENT: hearing grossly normal, + pertinent finding (edentulous) Neck: supple Respiratory/Chest: no respiratory distress, no accessory muscle use, + decreased breath sounds Cardiovascular: regular rate, rhythm, no edema Abdomen: normal bowel sounds, + tenderness (diffuse, nonspecific and not consistently reproducible) Extremities: + pertinent finding (LUE AVF + t/b, L AKA, very strictured L hand) Neurologic/Psych: alert, + pertinent finding (unable to answer questions > repeats "OW" but sore at times, can't answer where she's sore) Skin: no jaundice, warm/dry, no rash, + pertinent finding (decub not examined) Current Inpatient Medications Medications (Trade) Dose Ordered Sig/Gelacio Route Start Time Stop Time Status Last Admin Dose Admin Allopurinol (Zyloprim Tab) 100 mg QAM PO 07/04/18 08:00 08/03/18 08:59 07/04/18 08:03 100 MG Amiodarone HCl (Cordarone Tab) 200 mg QAM PO 07/04/18 08:00 08/03/18 08:59 07/04/18 08:05 200 MG Aspirin (Ecotrin Tab) 81 mg QAM PO 07/04/18 08:00 08/03/18 08:59 07/04/18 08:04 81 MG Atorvastatin Calcium (Lipitor Tab) 40 mg HS PO 07/03/18 21:00 08/02/18 20:59 07/03/18 22:03 40 MG Clopidogrel Bisulfate (plAVix TAB) 75 mg QAM PO 07/04/18 08:00 08/03/18 08:59 07/04/18 08:04 75 MG Duloxetine HCl (Cymbalta Cap) 30 mg HS PO 07/03/18 21:00 08/02/18 20:59 07/03/18 22:01 30 MG Levothyroxine Sodium (Synthroid Tab) 75 mcg DAILYBB PO 07/04/18 06:30 08/03/18 06:59 07/04/18 06:09 75 MCG Lisinopril (Zestril Tab) 10 mg QAM PO 07/04/18 08:00 08/03/18 08:59 07/04/18 08:04 10 MG Enteral Nutritional Formula (Boost) 1 can BIDM PO 07/03/18 17:00 08/02/18 17:59 07/04/18 08:03 1 CAN Senna/Docusate Sodium (Senokot S Tab) 2 tab BID PO 07/03/18 20:00 08/02/18 20:59 Vitamin B Complex/ Vit C/Folic Acid (Nephrocaps) 1 cap DAILY PO 07/04/18 08:00 08/03/18 08:59 07/04/18 08:04 1 CAP Albuterol Sulfate (Ventolin 0.083% 2.5MG/3ML Neb) 2.5 mg Q6H PRN INH 07/03/18 14:00 08/02/18 13:59 Mirtazapine (Remeron Tab) 7.5 mg HS PO 07/03/18 21:00 08/02/18 20:59 07/03/18 22:03 7.5 MG Pantoprazole Sodium (Protonix Tab) 40 mg QAM PO 07/04/18 08:00 08/03/18 08:59 07/04/18 08:04 40 MG Sevelamer HCl (Renagel Tab) 1,600 mg TIDM PO 07/03/18 17:00 08/02/18 17:59 07/04/18 08:04 1,600 MG Miscellaneous Information (Order Awaiting Action) 1 ea QS N/A 07/03/18 16:00 08/02/18 15:59 Acetaminophen (Tylenol Tab) 650 mg Q4H PRN PO 07/03/18 14:00 08/02/18 13:59 07/04/18 04:21 650 MG Al Hydrox/Mg Hydrox/Simethicone (Maalox Max Susp) 15 ml Q4H PRN PO 07/03/18 14:00 08/02/18 13:59 Magnesium Hydroxide (Milk Of Magnesia Susp) 30 ml Q6H PRN PO 07/03/18 14:00 08/02/18 13:59 Polyethylene (Miralax Powder Packet) 17 gm DAILY PRN PO 07/03/18 14:00 08/02/18 13:59 Ondansetron HCl (Zofran Inj) 4 mg Q6H PRN IV 07/03/18 14:00 08/02/18 13:59 Heparin Sodium (Porcine) (Heparin Sq 5000 Unit/0.5ml) 5,000 unit Q12H SQ 07/03/18 21:00 08/02/18 20:59 07/04/18 08:09 5,000 UNIT Insulin Aspart (novoLOG ASPART) SLIDING SCALE G... Q6H SC 07/03/18 15:00 08/02/18 14:59 Glucose (Glucose 40% Gel) 15-30 GRAMS 15 GRAMS... UD PRN PO 07/03/18 15:15 08/02/18 15:14 Glucose (Glucose Chew Tab) 4-8 Tablets 4 Tabl... UD PRN PO 07/03/18 15:15 08/02/18 15:14 Dextrose (Dextrose 50% 50ML Syringe) 25-50ML 25ML FOR ... UD PRN IV 07/03/18 15:15 08/02/18 15:14 Glucagon (Glucagon Inj) 1 mg UD PRN IM 07/03/18 15:15 08/02/18 15:14 Carbohydrates (Carbohydrates For Hypoglycemia) 15-30 GRAMS 15 grams if BSG 54-69... UD PRN PO 07/03/18 15:15 08/02/18 15:14 07/03/18 15:50 15 GM Last 24 Hours Test 07/03/18 11:10 07/03/18 11:16 07/03/18 15:44 07/03/18 15:46 White Blood Count 4.98 K/uL Red Blood Count 4.07 M/uL Hemoglobin 12.7 g/dL Hematocrit 40.9 % Mean Corpuscular Volume 100.5 fL Mean Corpuscular Hemoglobin 31.2 pg Mean Corpuscular Hemoglobin Concent 31.1 g/dl Platelet Count 157 K/uL Mean Platelet Volume 11.7 fL Neutrophils (%) (Auto) 61.2 % Lymphocytes (%) (Auto) 19.7 % Monocytes (%) (Auto) 12.7 % Eosinophils (%) (Auto) 5.8 % Basophils (%) (Auto) 0.4 % Neutrophils # (Auto) 3.05 K/uL Lymphocytes # (Auto) 0.98 K/uL Monocytes # (Auto) 0.63 K/uL Eosinophils # (Auto) 0.29 K/uL Basophils # (Auto) 0.02 K/uL RDW Standard Deviation 64.7 fL RDW Coefficient of Variation 17.3 % Immature Granulocyte % (Auto) 0.2 % Immature Granulocyte # (Auto) 0.01 K/uL Prothrombin Time 10.8 SECONDS Prothromb Time International Ratio 1.0 Activated Partial Thromboplast Time 31.0 SECONDS Partial Thromboplastin Ratio 1.2 Sodium Level 138 mmol/L Potassium Level 5.2 mmol/L Chloride Level 105 mmol/L Carbon Dioxide Level 26 mmol/L Anion Gap 7.0 mmol/L Blood Urea Nitrogen 71 mg/dl Creatinine 4.78 mg/dl Estimated GFR () 9.8 Estimated GFR (Non- 8.4 BUN/Creatinine Ratio 15.1 Random Glucose 76 mg/dl Calcium Level 9.0 mg/dl Magnesium Level 2.3 mg/dl Total Bilirubin 0.5 mg/dl Aspartate Amino Transf (AST/SGOT) 34 U/L Alanine Aminotransferase (ALT/SGPT) 26 U/L Alkaline Phosphatase 222 U/L Total Protein 7.7 gm/dl Albumin 1.9 gm/dl Globulin 5.8 gm/dl Albumin/Globulin Ratio 0.3 Bedside Lactic Acid Venous 1.14 mmol/L Bedside Glucose 65 mg/dl 70 mg/dl Test 07/03/18 16:10 07/03/18 21:56 07/04/18 03:26 07/04/18 06:28 Bedside Glucose 124 mg/dl 88 mg/dl 76 mg/dl Hepatitis B Surface Antigen NEG Hepatitis B Surface Antibody NEG Test 07/04/18 07:28 Bedside Glucose 70 mg/dl Date/Time Source Procedure Growth Status 07/03/18 11:10 Blood Blood Culture Pending Received 07/03/18 11:07 Blood Blood Culture Pending Received Assessment & Plan 73 y/o F w/ ESRD, CAD, PVD s/p amputation, DM, HFpEF admitted from [place] w/ altered MS on 07/03. ESRD Her volume status, electrolytes, anemia are all acceptable at this time; had gentle fluid removal w/ HD: 1L off -no heparin w/ HD >> note new but not acute finding of small thalamic lesion on CT head -next HD tentatively for 07/05 depending on clinical status Anemia of chronic disease -no epo w/ HD until we know more about cx results -daily cbc pls Altered MS -f/u pending blood cxs (NGTD); consider ammonia level >>>possibly on abtx as outpt for sacral decubitus but no abtx on her intake med list -- recommend calling facility to verify Appreciate consult; will follow with you.
--- NOTE | 2018-07-04 09:22 | Clinical Documentation Query ---
LEIGH Green : CLINICAL DOCUMENTATION QUERIES QUERY 1 OF 2 Patient is a 73 year old female admitted for evaluation an altered mental status. Documentation includes that of a decubitus ulcer of the sacrum, not otherwise specified. As appropriate, please specify. Thank you. In your clinical opinion is this patient being managed for: (x ) Pressure ulcer of sacral region, unstageable per the wound care nurse ( ) Not Agree ( ) Other explanation of clinical findings (No explanation is considered a No Response) ( ) Unable to determine ( ) Need to Discuss (Phone CDS or qliq) (No discussion is considered a No Response) The medical record reflects the following clinical findings, treatment, and risk factors. Clinical Indicators: As above Treatment: WOCN consultation Risk Factors: Age, comorbid conditions, immobility QUERY 2 OF 2 Presented for evaluation of an altered mental status, suggested to be possibly due to underlying dementia and/or dialysis status as patient had missed her treatment. As appropriate, consider an AMS as the hallmark symptom of the clinical diagnosis of encephalopathy as suggested below. Thank you. In your clinical opinion is this patient being managed for: ( x ) Metabolic encephalopathy ( ) Not Agree ( ) Other explanation of clinical findings (No explanation is considered a No Response) ( ) Unable to determine ( ) Need to Discuss (Phone CDS or qliq) (No discussion is considered a No Response) The medical record reflects the following clinical findings, treatment, and risk factors. Clinical Indicators: As above Treatment: Dialysis Risk Factors: Missed dialysis, ESRD Please clarify and document your clinical opinion in the progress notes and discharge summary. Terms such as "probable", "suspected", "likely", "questionable", "possible", or "still to be ruled out" are acceptable. IF IN AGREEMENT, YOU MUST DOCUMENT ABOVE DIAGNOSTIC STATEMENT IN DAILY PROGRESS NOTES AND DISCHARGE SUMMARY. This document is not part of the patient's record. Thank You, Jean Claude Lima, RN [phone]
[2018-07-04] MEDS ORDERED: HYDROCODONE/ACETAMIN 5/325MG TAB PO PRN (12:00)
[2018-07-04] MEDS: FENTANYL PATCH REMOVE & WASTE SCH (12:22)
[2018-07-04] MEDS: FENTANYL 12 MCG/HR TDSY TD SCH (12:27)
[2018-07-04] MEDS ORDERED: OPTIRAY 320 IV PRN (13:30)
[2018-07-04 14:00] VITALS: Ht 165.1 cm; Wt 63.2 kg
[2018-07-04] MEDS: DEXTROSE 5% 1000ML 1,000 ML IV SCH (14:05)
--- NOTE | 2018-07-04 14:06 | DIAGNOSTIC IMAGING REPORT ---
CT OF THE PELVIS WITH CONTRAST CLINICAL HISTORY: Sacral decubitus ulcer. COMPARISON STUDY: CT of the abdomen and pelvis August 03, 2017. TECHNIQUE: Axial images of the pelvis were obtained following intravenous injection of 103 cc Optiray 320 IV. Sagittal and coronal reconstructions were viewed. FINDINGS: Note is made of moderate infiltration posterior to the upper sacrum and the coccyx without fluid collection to suggest an abscess. This favors cellulitis likely related to a sacral decubitus ulcer which could be correlated clinically. No bony destruction of the sacrum or coccyx is identified by CT. No soft tissue gas is present. Extensive atherosclerotic plaque is noted. Note is made of mild wall thickening and hyperemia visualized portions of the colon and the rectum. A bowel containing ventral hernias noted but does not appear to result in a bowel obstruction. Sacroiliac joints and symphysis pubis are intact. IMPRESSION: 1. Moderate infiltration posterior to the inferior sacrum and the coccyx consistent with cellulitis. No fluid collection to suggest abscess. No bony destruction to suggest osteomyelitis by CT although the cellulitis/infiltration does extend to the bone. No soft tissue gas. 2. Wall thickening of the visualized portions of the colon and rectum which favors a nonspecific proctocolitis. Electronically signed by: Charlie Hayden M.D. 07/04/2018 2:04 PM Dictated Date/Time: 07/04/2018 1:50 PM
[2018-07-04] MEDS ORDERED: NURSING VERBAL MED ORDER ONE (14:15)
[2018-07-04] MEDS ORDERED: VANCOMYCIN CONSULT ACTIVE PRN (15:15)
[2018-07-04 15:26] VITALS: BP 128/68; PULSE 60; TEMP 36.5; O2SAT 98
[2018-07-04 16:00] VITALS: O2SAT 98
[2018-07-04] MEDS ORDERED: AZTREONAM 2000 MG in DEXTROSE 5% 100 ML IV ONE (16:45)
--- NOTE | 2018-07-04 16:58 | Pharmacy Progress Note ---
Pharmacy Abx Initial Consult Date of Service Jul 04, 2018. Pharmacy Dosing Scope Date of Consult: 07/04/18 Consultation requested by: Dr. Massey Pharmacy is consulted to initiate Vancomycin and Aztreonam IV dosing therapy, order appropriate labs and adjust drug dose/frequency. Subjective The patient is a 73 year old female admitted on Jul 03, 2018 at 14:08. Objective Height (Feet): 5 Height (Inches): 5.00 Weight (Kilograms): 63.000 Vital Signs (Past 12Hrs) Vital Signs Past 12 Hours Date Time Temp Pulse Resp B/P (MAP) Pulse Ox O2 Delivery O2 Flow Rate FiO2 07/04/18 15:26 36.5 60 18 128/68 (88) 98 Room Air 07/04/18 08:00 99 Room Air 07/04/18 07:15 37.1 71 16 143/57 (85) 99 Room Air Micro Results Date/Time Source Procedure Growth Status 07/03/18 11:10 Blood Blood Culture Pending Received 07/03/18 11:07 Blood Blood Culture Pending Received Risk Factors for Resistance * Resident in a snf or extended-care facility * Chronic dialysis within the past 30 days * History of infection with a multidrug-resistant organism: pseudomonas, urine , April 2018 Assessment & Plan Assessment 73 year old female admitted for AMS secondary to possible SSTI (sacral ulcer) Plan Vancomycin and Aztreonam for treatment of SSTI Vancomycin IV * Loading dose: 1250mg mg (20 mg/kg) * Patient on HD, last session on 07/01, next scheduled for 07/05. * Random level ordered for 07/05/2018 before next HD session, further dosing based on pre-HD levels. Aztreonam * The FDA approved dosage adjustment for adults on HD is to give the normal LD, followed by 25% of the usual dose given at standard dosing interval. * Standard dosing for SSTI: 1-2gm every 8 to 12 hours. Went with higher dose and interval due to patients history of MDROs. Pharmacy will continue to follow and will adjust dose/frequency as necessary. Thank you.
[2018-07-04] MEDS ORDERED: AZTREONAM CONSULT ACTIVE PRN (17:00)
[2018-07-04] MEDS: BOOST GLUCOSE CONTROL VANILLA PO SCH (17:00)
[2018-07-04] MEDS ORDERED: VANCOMYCIN IV 1,250 MG in SODIUM CHLORIDE 0.9% 250ML 250 ML IV ONE (17:00)
--- NOTE | 2018-07-04 18:16 | Progress Note ---
Subjective Date of Service: Jul 04, 2018. Subjective Pt evaluation today including: conversation w/ patient, physical exam, chart review, lab review, review of studies (CT pelvis), conversation w/ consumer services consultant ( pharmacy, nephrology, palliative care), review of inpatient medication list Pain: moans with any movement in the bed PO Intake: very poor patient with eyes open during the visit she could hardly answer questions she did not remember me from numerous prior visits in the past she could recall her sister's name only ("FELI") ROS could not be obtained due to altered MS Problem List Medical Problems: (1) Acute electrocardiogram changes Status: Acute (2) Altered mental status Status: Acute (3) Altered mental status Status: Acute (4) Anemia Status: Acute (5) Cellulitis Status: Acute (6) Change in mental status Status: Acute (7) CHF (congestive heart failure) Status: Acute (8) Confusion Status: Acute (9) Diarrhea Status: Acute (10) Elevated troponin Status: Acute (11) End stage kidney disease Status: Acute (12) Epistaxis Status: Acute (13) Hypotension Status: Acute (14) Metabolic encephalopathy Status: Acute (15) PNA (pneumonia) Status: Acute (16) Respiratory failure Status: Acute (17) Sacral ulcer Status: Acute (18) Sepsis Status: Acute (19) Sepsis Status: Acute (20) Sepsis Status: Acute (21) Vomiting Status: Acute Objective Vital Signs Date Time Temp Pulse Resp B/P (MAP) Pulse Ox O2 Delivery O2 Flow Rate FiO2 07/04/18 15:26 36.5 60 18 128/68 (88) 98 Room Air 07/04/18 08:00 99 Room Air 07/04/18 07:15 37.1 71 16 143/57 (85) 99 Room Air 07/04/18 03:31 73 143/60 (87) 07/03/18 23:59 36.6 81 20 178/75 (109) 96 Room Air 07/03/18 21:40 Room Air 07/03/18 21:30 37.2 77 158/42 (80) 07/03/18 21:00 74 130/61 07/03/18 20:45 84 151/79 07/03/18 20:30 73 114/74 07/03/18 20:15 61 117/78 07/03/18 20:00 69 116/49 07/03/18 19:30 90 116/32 07/03/18 19:15 78 119/48 07/03/18 19:00 72 115/55 07/03/18 18:45 72 95/46 07/03/18 18:30 73 88/34 07/03/18 18:15 73 93/37 Physical Exam General Appearance: + cachetic, + thin, + pertinent finding (altered ) ENT: pharynx normal Neck: no JVD Respiratory/Chest: lungs clear, no respiratory distress, no accessory muscle use Cardiovascular: regular rate, rhythm, no gallop, no murmur Abdomen: normal bowel sounds, non tender, soft, no organomegaly Extremities: + pertinent finding (left AKA; right leg w/o edema; pulses 1+ ) 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: alert, + disoriented, + pertinent finding (says very little; moaning) Skin: + pertinent finding (sacral area - 2-2.5cm unstageable decubitus ulcer with slough covering the wound bed; no bone exposed; the areas immediately around the wound are very tender to palpation; there is nonblanchable erythema inferior to this region extending onto the buttocks) Laboratory Results Last 24 Hours Test 07/03/18 21:56 07/04/18 03:26 07/04/18 06:28 07/04/18 07:28 Bedside Glucose 88 mg/dl 76 mg/dl 70 mg/dl Hepatitis B Surface Antigen NEG Hepatitis B Surface Antibody NEG Test 07/04/18 11:29 07/04/18 16:39 Bedside Glucose 74 mg/dl 72 mg/dl Assessment and Plan 73yo female - 1. metabolic encephalopathy - I suspect that this could be due to infection of the sacral decubitus ulcer. I obtained a CT of the pelvis today - see below. Starting IV antibiotic therapy for the decubitus ulcer. CT head notable for chronic appearing lacunar infarct. 2. ?underlying dementia - I last saw Ms. guzman about 12-18 months ago and even then she had cognitive impairment. I believe she has #1 in the setting of a chronic dementia process - probably vascular in origin. 3. sacral decubitus ulcer, unstageable at this time - I believe the ulcer is infected and may be the cause of her altered MS. CT pelvis w/o osteomyelitis or abscess. [id number]-swu-dony start aztreonam and vancomycin IV. Wound care nurse & provider to see. 4. severe protein calorie malnutrition - she has lost over 100 pounds since November of 2016. Her albumin is <2. She has declined both physically and cognitively over time. Palliative care discussions are appropriate. I will reach out to her sister "Feli" by phone. Oral intake by report is quite poor. Not a good candidate for appetite stimulant. 5. ESRD on HD - M/W/F - appreciate nephrology assistance. 6. T2DM - at this time she is having hypoglycemia likely due to stress of #3. Add dextrose fluids - D5w at 20cc/hr to maintain normoglycemia. Adjust as needed. 7. DVT proph - heparin sc. 8. h/o CAD - noted; no ischemic symptoms at this time. 9. chronic pain syndrome - cont fentanyl patch and add norco 5's prn for breakthrough. 10. h/o COPD - not in exacerbation at this time. 11. hypothyroidism - continue synthroid. 12. h/o PAF - noted. 13. chronic diastolic CHF - compensated. prognosis is very, very poor I attempted to call pt's sister, Feli, at about 1800 and she did not answer I could not leave a message will try to call her again tomorrow Continued [facility] stay due to: inadequate oral pain control, multiple IV medications needed Discharge planning: senior care facility
[2018-07-04] MEDS: ATORVASTATIN 40 MG TAB PO SCH (21:00)
[2018-07-04] MEDS: DULOXETINE (CYMBALTA) 30 MG CAP PO SCH (21:00)
[2018-07-04] MEDS: MIRTAZAPINE TAB 15 MG TAB PO SCH (21:00)
[2018-07-04] MEDS: NEPHROCAPS PO SCH (21:00)
[2018-07-04] MEDS: CHECK FENTANYL PATCH PLACEMENT SCH (21:05)
[2018-07-04 23:31] VITALS: BP 126/62; PULSE 68; TEMP 37; O2SAT 98
[2018-07-05] VITALS (18 sets, daily range): BP systolic 91–166; BP diastolic 49–70; PULSE 66–76; TEMP 36.5–37.2; O2SAT 95–98
[2018-07-05] MEDS: CHECK FENTANYL PATCH PLACEMENT SCH ×3 (00:18→16:00)
[2018-07-05] MEDS: AZTREONAM IV 500 MG in DEXTROSE 5% 100ML 100 ML IV SCH ×3 (00:18→19:49)
[2018-07-05 06:12] LABS: HEMATOCRIT 37.2 % (37-47); MEAN CELL VOLUME 97.1 fL (80-100); MEAN CORPUSCULAR HEMOGLOBIN 31.3 pg (25-34); MEAN CORPUSCULAR HGB CONC 32.3 g/dl (32-36); MEAN PLATELET VOLUME 11.8 fL (7.4-10.4); PLATELET COUNT 142 K/uL (130-400); RED CELL DISTRIBUTION WIDTH SD 60.4 fL (36.4-46.3); WHITE BLOOD COUNT 6.34 K/uL (4.8-10.8)
[2018-07-05] MEDS: LEVOTHYROXINE 75 MCG TAB PO SCH (06:22)
[2018-07-05] MEDS: INSULIN ASPART 100 UNITS/ML 3 ML PEN SC SCH ×4 (06:30→20:43)
[2018-07-05 06:48] LABS: CALCIUM 8.6 mg/dl (8.5-10.1); CREATININE 4.22 mg/dl (0.60-1.20); POTASSIUM 4.8 mmol/L (3.5-5.1)
[2018-07-05] MEDS ORDERED: HEPARIN SOD (PORCINE) 1000 UNIT/ML 10 ML VIAL IV SCH (08:00)
[2018-07-05] MEDS: DOCUSATE SODIUM/SENNA 50/8.6MG TAB PO SCH ×2 (08:00→19:52)
[2018-07-05] MEDS: BOOST GLUCOSE CONTROL VANILLA PO SCH ×3 (08:25→18:15)
[2018-07-05] MEDS: ALLOPURINOL 100 MG TAB PO SCH (08:26)
[2018-07-05] MEDS: ASPIRIN 81 MG ECTAB PO SCH (08:26)
[2018-07-05] MEDS: HYDROCODONE/ACETAMIN 5/325MG TAB PO PRN ×2 (08:26→18:19)
[2018-07-05] MEDS: ATORVASTATIN 40 MG TAB PO SCH (08:27)
[2018-07-05] MEDS: AMIODARONE 200 MG TAB PO SCH (08:27)
[2018-07-05] MEDS: SEVELAMER HYDROCH 800 MG TAB PO SCH ×3 (08:27→18:18)
[2018-07-05] MEDS: CLOPIDOGREL BISULFATE 75 MG TAB PO SCH (08:27)
[2018-07-05] MEDS: PANTOprazole SOD 40 MG TAB PO SCH (08:28)
[2018-07-05] MEDS: LISINOPRIL 10 MG TAB PO SCH (08:29)
[2018-07-05] MEDS: HEPARIN SOD 5000 UNIT/0.5 ML CARP SQ SCH ×2 (08:30→20:54)
[2018-07-05] MEDS: DEXTROSE 5% 1000ML 1,000 ML IV SCH (12:22)
[2018-07-05] MEDS: HEPARIN SOD (PORCINE) 1000 UNIT/ML 10 ML VIAL IV SCH ×2 (14:45→15:46)
--- NOTE | 2018-07-05 14:46 | Pharmacy Progress Note ---
Pharmacy Abx Dose Short Note Date of Service Jul 05, 2018. Assessment & Plan Assessment 73 year old female receiving IV Vancomycin for treatment of sacral ulcer cellulitis Day # 2 of antimicrobial therapy. * Patient receives HD on MWF; last session was on 07/03. She is ordered dialysis today, 07/05. Vancomycin dosed based on levels. Plan Vancomycin * Random level of 22.5 mcg/mL * Give Vancomycin 500mg IV x 1 after dialysis today * Random level ordered for: 07/08/18 with AM labs, prior to anticipated next dialysis session Pharmacy will continue to follow and will adjust dose/frequency as necessary. Thank you.
[2018-07-05] MEDS: CARBOHYDRATES FOR HYPOGLYCEMIA PO PRN (18:13)
--- NOTE | 2018-07-05 19:20 | Dialysis Progress Note ---
Nephrology Dialysis Note Date of Service: Jul 05, 2018. Subjective seen at end of her dialysis tx. tracks and c/o pain if avf arm moved; else no c /o and not very interactive/ ros limited Objective Date Time Temp Pulse Resp B/P (MAP) Pulse Ox O2 Delivery O2 Flow Rate FiO2 07/05/18 17:51 37.1 67 166/67 (100) 07/05/18 17:00 71 127/65 07/05/18 16:45 67 125/56 07/05/18 16:30 70 135/62 07/05/18 16:15 66 91/50 07/05/18 16:00 68 105/49 07/05/18 15:45 67 140/61 07/05/18 15:30 69 120/54 07/05/18 15:15 70 128/54 07/05/18 15:00 71 124/55 07/05/18 14:45 72 146/57 07/05/18 14:30 67 128/56 07/05/18 14:15 68 131/62 07/05/18 14:00 66 124/53 07/05/18 13:40 36.5 133/61 (85) 07/05/18 10:00 98 Room Air 07/05/18 06:37 36.9 76 20 135/70 (91) 98 Room Air 07/05/18 00:30 Room Air 07/04/18 23:31 37.0 68 18 126/62 (83) 98 Room Air Physical Exam: General Appearance: WD/WN, + pertinent finding (on RA, appears chronically ill ; awake, alert, limited interaction Eyes: EOMI ENT: hearing grossly normal, + pertinent finding (edentulous) Neck: supple Respiratory/Chest: no respiratory distress, no accessory muscle use, + decreased breath sounds Cardiovascular: regular rate, rhythm, no edema Abdomen: normal bowel sounds, today NT Extremities: + pertinent finding (LUE AVF + t/b, L AKA, very strictured L hand) Neurologic/Psych: alert, tracks but not verbal Skin: no jaundice, warm/dry, no rash, + pertinent finding (decub not examined) Current Inpatient Medications Medications (Trade) Dose Ordered Sig/Gelacio Route Start Time Stop Time Status Last Admin Dose Admin Allopurinol (Zyloprim Tab) 100 mg QAM PO 07/04/18 08:00 08/03/18 08:59 07/05/18 08:26 100 MG Amiodarone HCl (Cordarone Tab) 200 mg QAM PO 07/04/18 08:00 08/03/18 08:59 07/05/18 08:27 200 MG Aspirin (Ecotrin Tab) 81 mg QAM PO 07/04/18 08:00 08/03/18 08:59 07/05/18 08:26 81 MG Atorvastatin Calcium (Lipitor Tab) 40 mg HS PO 07/03/18 21:00 08/02/18 20:59 07/05/18 08:27 40 MG Clopidogrel Bisulfate (plAVix TAB) 75 mg QAM PO 07/04/18 08:00 08/03/18 08:59 07/05/18 08:27 75 MG Duloxetine HCl (Cymbalta Cap) 30 mg HS PO 07/03/18 21:00 08/02/18 20:59 07/03/18 22:01 30 MG Levothyroxine Sodium (Synthroid Tab) 75 mcg DAILYBB PO 07/04/18 06:30 08/03/18 06:59 07/05/18 06:22 75 MCG Lisinopril (Zestril Tab) 10 mg QAM PO 07/04/18 08:00 08/03/18 08:59 07/05/18 08:29 10 MG Senna/Docusate Sodium (Senokot S Tab) 2 tab BID PO 07/03/18 20:00 08/02/18 20:59 Albuterol Sulfate (Ventolin 0.083% 2.5MG/3ML Neb) 2.5 mg Q6H PRN INH 07/03/18 14:00 08/02/18 13:59 Mirtazapine (Remeron Tab) 7.5 mg HS PO 07/03/18 21:00 08/02/18 20:59 07/03/18 22:03 7.5 MG Pantoprazole Sodium (Protonix Tab) 40 mg QAM PO 07/04/18 08:00 08/03/18 08:59 07/05/18 08:28 40 MG Sevelamer HCl (Renagel Tab) 1,600 mg TIDM PO 07/03/18 17:00 08/02/18 17:59 07/05/18 18:18 1,600 MG Miscellaneous Information (Order Awaiting Action) 1 ea QS N/A 07/03/18 16:00 08/02/18 15:59 Acetaminophen (Tylenol Tab) 650 mg Q4H PRN PO 07/03/18 14:00 08/02/18 13:59 07/04/18 10:47 650 MG Al Hydrox/Mg Hydrox/Simethicone (Maalox Max Susp) 15 ml Q4H PRN PO 07/03/18 14:00 08/02/18 13:59 Magnesium Hydroxide (Milk Of Magnesia Susp) 30 ml Q6H PRN PO 07/03/18 14:00 08/02/18 13:59 Polyethylene (Miralax Powder Packet) 17 gm DAILY PRN PO 07/03/18 14:00 08/02/18 13:59 Ondansetron HCl (Zofran Inj) 4 mg Q6H PRN IV 07/03/18 14:00 08/02/18 13:59 Heparin Sodium (Porcine) (Heparin Sq 5000 Unit/0.5ml) 5,000 unit Q12H SQ 07/03/18 21:00 08/02/18 20:59 07/04/18 21:12 5,000 UNIT Glucose (Glucose 40% Gel) 15-30 GRAMS 15 GRAMS... UD PRN PO 07/03/18 15:15 08/02/18 15:14 Glucose (Glucose Chew Tab) 4-8 Tablets 4 Tabl... UD PRN PO 07/03/18 15:15 08/02/18 15:14 Dextrose (Dextrose 50% 50ML Syringe) 25-50ML 25ML FOR ... UD PRN IV 07/03/18 15:15 08/02/18 15:14 Glucagon (Glucagon Inj) 1 mg UD PRN IM 07/03/18 15:15 08/02/18 15:14 Carbohydrates (Carbohydrates For Hypoglycemia) 15-30 GRAMS 15 grams if BSG 54-69... UD PRN PO 07/03/18 15:15 08/02/18 15:14 07/05/18 18:13 15 GM Vitamin B Complex/ Vit C/Folic Acid (Nephrocaps) 1 cap HS PO 07/04/18 21:00 08/03/18 08:59 Fentanyl (Duragesic Patch) 12 mcg Q72H TD 8/23/18 13:00 07/18/18 12:59 07/04/18 12:27 12 MCG Miscellaneous (Fentanyl Patch Remove & Waste) 1 ea Q72H N/A 07/04/18 12:59 08/03/18 12:58 07/04/18 12:22 1 EA Miscellaneous Information (Check Fentanyl Patch Placement) 1 ea QS N/A 07/04/18 16:00 08/03/18 15:59 07/05/18 16:00 1 EA Dextrose 1,000 ml @ 20 mls/hr Q24H IV 07/04/18 12:45 08/03/18 12:44 07/05/18 12:22 20 MLS/HR Ioversol (Optiray 320) 111 ml UD PRN IV 07/04/18 13:30 07/08/18 13:29 Enteral Nutritional Formula (Boost Glucose Control) 1 can TIDM PO 07/04/18 17:00 08/03/18 16:59 07/05/18 18:15 1 CAN Insulin Aspart (novoLOG ASPART) SLIDING SCALE G... ACHS SC 07/04/18 16:30 08/03/18 16:29 Acetaminophen/ Hydrocodone Bitart ([place] 5/325 Tab) 1 tab Q4H PRN PO 07/04/18 15:15 07/18/18 15:14 07/05/18 18:19 1 TAB Aztreonam 500 mg/ Dextrose 105 ml @ 100 mls/hr Q8H IV 07/05/18 00:00 07/14/18 00:00 07/05/18 08:35 100 MLS/HR Vancomycin HCl (Consult) 1 ea UD PRN N/A 07/04/18 15:15 08/03/18 15:14 Aztreonam (Consult) 1 ea UD PRN N/A 07/04/18 17:00 08/03/18 16:59 Vancomycin HCl 500 mg/Sodium Chloride 260 ml @ 125 mls/hr TODAY@2100 ONCE IV 07/05/18 21:00 07/05/18 23:04 Last 24 Hours Test 07/04/18 20:13 07/05/18 06:00 07/05/18 07:37 07/05/18 12:06 Bedside Glucose 85 mg/dl 85 mg/dl 97 mg/dl White Blood Count 6.34 K/uL Red Blood Count 3.83 M/uL Hemoglobin 12.0 g/dL Hematocrit 37.2 % Mean Corpuscular Volume 97.1 fL Mean Corpuscular Hemoglobin 31.3 pg Mean Corpuscular Hemoglobin Concent 32.3 g/dl RDW Standard Deviation 60.4 fL RDW Coefficient of Variation 17.0 % Platelet Count 142 K/uL Mean Platelet Volume 11.8 fL Sodium Level 132 mmol/L Potassium Level 4.8 mmol/L Chloride Level 97 mmol/L Carbon Dioxide Level 25 mmol/L Anion Gap 11.0 mmol/L Blood Urea Nitrogen 45 mg/dl Creatinine 4.22 mg/dl Est Creatinine Clear Calc Drug Dose 10.7 ml/min Estimated GFR () 11.4 Estimated GFR (Non- 9.8 BUN/Creatinine Ratio 10.7 Random Glucose 70 mg/dl Calcium Level 8.6 mg/dl Random Vancomycin Level 22.5 mcg/ml Test 07/05/18 17:58 07/05/18 17:59 07/05/18 18:18 Bedside Glucose 68 mg/dl 69 mg/dl 93 mg/dl Assessment & Plan 73 y/o F w/ ESRD, CAD, PVD s/p amputation, DM, HFpEF admitted from [place] w/ altered MS on 07/03. volume status and chemsitries ok; MS not improved though ESRD Her volume status, electrolytes, anemia are all acceptable at this time; had gentle fluid removal w/ HD: 1-1.5L off -next HD tentatively for 07/08 depending on clinical status Anemia of chronic disease -no epo w/ HD indicated -q48 hr cbc pls Altered MS -f/u pending blood cxs (NGTD); consider ammonia level >>>on vanco/aztreonam for sacral decubitus Appreciate consult; will follow with you.
[2018-07-05] MEDS ORDERED: DEXTROSE 10% 1,000 ML IV SCH (20:00)
[2018-07-05] MEDS: MIRTAZAPINE TAB 15 MG TAB PO SCH (20:41)
[2018-07-05] MEDS: NEPHROCAPS PO SCH (20:41)
[2018-07-05] MEDS: DULOXETINE (CYMBALTA) 30 MG CAP PO SCH (20:41)
--- NOTE | 2018-07-05 20:51 | Progress Note ---
Subjective Date of Service: Jul 05, 2018. Subjective Pt evaluation today including: conversation w/ patient, physical exam, chart review, lab review, conversation w/ [employer] ebs consultant (spoke with [facility]), review of inpatient medication list Pain: seems more comfortable today PO Intake: minimal staff report she continues to be confused --- with eyes open --- but only giving 1 word answers to questions she will smile during the visit I spoke with [facility] - the contact number we have in the chart here for Feli Colmenares, her sister, is the only contact # available they confirmed that Ms. Colmenares has been declining for some time they also confirmed her sister Feli was indeed informed of this admission unable to obtain any meaningful history or ROS due to altered MS Problem List Medical Problems: (1) Acute electrocardiogram changes Status: Acute (2) Altered mental status Status: Acute (3) Altered mental status Status: Acute (4) Anemia Status: Acute (5) Cellulitis Status: Acute (6) Change in mental status Status: Acute (7) CHF (congestive heart failure) Status: Acute (8) Confusion Status: Acute (9) Diarrhea Status: Acute (10) Elevated troponin Status: Acute (11) End stage kidney disease Status: Acute (12) Epistaxis Status: Acute (13) Hypotension Status: Acute (14) Metabolic encephalopathy Status: Acute (15) PNA (pneumonia) Status: Acute (16) Respiratory failure Status: Acute (17) Sacral ulcer Status: Acute (18) Sepsis Status: Acute (19) Sepsis Status: Acute (20) Sepsis Status: Acute (21) Vomiting Status: Acute Objective Vital Signs Date Time Temp Pulse Resp B/P (MAP) Pulse Ox O2 Delivery O2 Flow Rate FiO2 07/05/18 17:51 37.1 67 166/67 (100) 07/05/18 17:00 71 127/65 07/05/18 16:45 67 125/56 07/05/18 16:30 70 135/62 07/05/18 16:15 66 91/50 07/05/18 16:00 68 105/49 07/05/18 15:45 67 140/61 07/05/18 15:30 69 120/54 07/05/18 15:15 70 128/54 07/05/18 15:00 71 124/55 07/05/18 14:45 72 146/57 07/05/18 14:30 67 128/56 07/05/18 14:15 68 131/62 07/05/18 14:00 66 124/53 07/05/18 13:40 36.5 133/61 (85) 07/05/18 10:00 98 Room Air 07/05/18 06:37 36.9 76 20 135/70 (91) 98 Room Air 07/05/18 00:30 Room Air 07/04/18 23:31 37.0 68 18 126/62 (83) 98 Room Air Physical Exam General Appearance: no apparent distress, + cachetic, + pertinent finding ( smiles, says "hi" - then doesn't answer any other questions) ENT: pharynx normal Neck: no JVD Respiratory/Chest: lungs clear, no respiratory distress, no accessory muscle use Cardiovascular: regular rate, rhythm, no gallop, + systolic murmur (2-3/6 RUSB) Abdomen: normal bowel sounds, non tender, soft, no organomegaly, + hernia ( umbilical, reducible ) Extremities: no pedal edema 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: alert, + disoriented, + pertinent finding (confused; muscle wasting of intrinsic hand muscles both hands) Laboratory Results Last 24 Hours Test 07/05/18 06:00 07/05/18 07:37 07/05/18 12:06 07/05/18 17:58 White Blood Count 6.34 K/uL Red Blood Count 3.83 M/uL Hemoglobin 12.0 g/dL Hematocrit 37.2 % Mean Corpuscular Volume 97.1 fL Mean Corpuscular Hemoglobin 31.3 pg Mean Corpuscular Hemoglobin Concent 32.3 g/dl RDW Standard Deviation 60.4 fL RDW Coefficient of Variation 17.0 % Platelet Count 142 K/uL Mean Platelet Volume 11.8 fL Sodium Level 132 mmol/L Potassium Level 4.8 mmol/L Chloride Level 97 mmol/L Carbon Dioxide Level 25 mmol/L Anion Gap 11.0 mmol/L Blood Urea Nitrogen 45 mg/dl Creatinine 4.22 mg/dl Est Creatinine Clear Calc Drug Dose 10.7 ml/min Estimated GFR () 11.4 Estimated GFR (Non- 9.8 BUN/Creatinine Ratio 10.7 Random Glucose 70 mg/dl Calcium Level 8.6 mg/dl Random Vancomycin Level 22.5 mcg/ml Bedside Glucose 85 mg/dl 97 mg/dl 68 mg/dl Test 07/05/18 17:59 07/05/18 18:18 07/05/18 20:23 Bedside Glucose 69 mg/dl 93 mg/dl 120 mg/dl Assessment and Plan 73yo female - 1. metabolic encephalopathy - I suspect that this could be due to infection of the sacral decubitus ulcer. The confusion/lethargy is +/- slightly better today. CT head notable for chronic appearing lacunar infarcts. Could consider MRI brain but uncertain if it would change our current management. 2. ?underlying dementia - I last saw Ms. colmenares about 12-18 months ago and even then she had cognitive impairment. I believe she has #1 in the setting of a chronic dementia process - probably vascular in origin. 3. sacral decubitus ulcer, unstageable at this time - I believe the ulcer is infected and may be the cause of her altered MS. CT pelvis w/o osteomyelitis or abscess. Day #2 aztreonam and vancomycin IV. Blood cx's negative. Wound care nurse & provider to see. May need debridement. 4. severe protein calorie malnutrition - she has lost over 100 pounds since November of 2016. Her albumin is <2. She has declined both physically and cognitively over time. Palliative care discussions are appropriate. Oral intake by report is quite poor. Not a good candidate for appetite stimulant. 5. ESRD on HD - M// - appreciate nephrology assistance. 6. history of T2DM - at this time she is having hypoglycemia likely due to stress of #3. Last hemoglobin a1c in April 2018 was 4.5%. Her DM has resolved due to extensive weight loss. Despite D5w at 20cc/hr to maintain normoglycemia she has persistently low glucoses. Change D5W to D10W and run at 20cc/hr. Check cortisol level in am. 7. DVT proph - heparin sc. 8. h/o CAD - noted; no ischemic symptoms at this time. 9. chronic pain syndrome - cont fentanyl patch and norco 5's prn for breakthrough. 10. h/o COPD - not in exacerbation at this time. 11. hypothyroidism - continue synthroid. Check TSH in am. 12. h/o PAF - noted. 13. chronic diastolic CHF - compensated. prognosis is very, very poor I attempted to call pt's sister, Feli, on 07/04 -- no answer and I could not leave a message Tried twice today to call Pat again - again no answer I called [facility] -- they do not have any other contact #'s except the one that is in our EMR I asked the nursing staff to try and reach Feli srivastava and see if we could set up a time to talk tomorrow to discuss goals of care in light of terrible prognosis I would strongly recommend palliative care/hospice given her significant decline on all levels Continued [facility] stay due to: inadequate oral pain control, multiple IV medications needed, other (altered MS) Discharge planning: long-term facility
[2018-07-05] MEDS ORDERED: VANCOMYCIN IV 500 MG in SODIUM CHLORIDE 0.9% 250ML 250 ML IV ONE (21:00)
[2018-07-06] MEDS: CHECK FENTANYL PATCH PLACEMENT SCH ×3 (00:08→15:31)
[2018-07-06] MEDS: AZTREONAM IV 500 MG in DEXTROSE 5% 100ML 100 ML IV SCH ×3 (00:08→15:31)
[2018-07-06] MEDS: LEVOTHYROXINE 75 MCG TAB PO SCH (06:01)
[2018-07-06 07:26] VITALS: BP 176/63; PULSE 72; TEMP 36.8; O2SAT 100
[2018-07-06] MEDS: BOOST GLUCOSE CONTROL VANILLA PO SCH ×3 (07:53→17:24)
[2018-07-06] MEDS: AMIODARONE 200 MG TAB PO SCH (07:53)
[2018-07-06] MEDS: ASPIRIN 81 MG ECTAB PO SCH (07:54)
[2018-07-06] MEDS: CLOPIDOGREL BISULFATE 75 MG TAB PO SCH (07:54)
[2018-07-06] MEDS: PANTOprazole SOD 40 MG TAB PO SCH (07:54)
[2018-07-06] MEDS: DOCUSATE SODIUM/SENNA 50/8.6MG TAB PO SCH ×2 (07:55→19:47)
[2018-07-06] MEDS: LISINOPRIL 10 MG TAB PO SCH (07:56)
[2018-07-06] MEDS: ALLOPURINOL 100 MG TAB PO SCH (07:56)
[2018-07-06 08:33] VITALS: BP 171/72; PULSE 71; TEMP 37; O2SAT 98
[2018-07-06] MEDS: INSULIN ASPART 100 UNITS/ML 3 ML PEN SC SCH ×4 (08:45→21:00)
[2018-07-06] MEDS: SEVELAMER HYDROCH 800 MG TAB PO SCH ×3 (08:46→17:24)
[2018-07-06] MEDS: HEPARIN SOD 5000 UNIT/0.5 ML CARP SQ SCH ×2 (08:48→21:16)
[2018-07-06 10:08] LABS: CALCIUM 7.9 mg/dl (8.5-10.1); CREATININE 3.01 mg/dl (0.60-1.20)
[2018-07-06 12:08] VITALS: BP 165/74; PULSE 69; TEMP 36.8; O2SAT 98
[2018-07-06] MEDS: HYDROCODONE/ACETAMIN 5/325MG TAB PO PRN (12:55)
[2018-07-06 15:28] VITALS: BP 166/70; PULSE 70; TEMP 37.2; O2SAT 100
--- NOTE | 2018-07-06 15:35 | Hospitalist Progress Note ---
Hospitalist Progress Note Date of Service Jul 06, 2018. Subjective Pt evaluation today including: conversation w/ patient, conversation w/ family (Sister on the phone) RN reports that patient was more talkative during the day, however when I saw her, she was quite confused and minimally responsive to questioning, however was awake and alert. She reported pain in her bottom and did receive a dose of hydrocodone shortly before I saw her today. She denies chest pain or shortness of breath. All Other Systems: Reviewed and Negative Objective Vital Signs Date Time Temp Pulse Resp B/P (MAP) Pulse Ox O2 Delivery O2 Flow Rate FiO2 07/06/18 15:28 37.2 70 16 166/70 (102) 100 Room Air 07/06/18 12:08 36.8 69 16 165/74 (104) 98 Room Air 07/06/18 08:33 37.0 71 18 171/72 (105) 98 Room Air 07/06/18 08:00 Room Air 07/06/18 07:26 36.8 72 16 176/63 (100) 100 Room Air 07/06/18 00:15 Room Air 07/05/18 23:32 37.2 68 17 139/54 (82) 95 Room Air 07/05/18 17:51 37.1 67 166/67 (100) 07/05/18 17:00 71 127/65 07/05/18 16:45 67 125/56 07/05/18 16:30 70 135/62 07/05/18 16:15 66 91/50 07/05/18 16:00 68 105/49 07/05/18 15:45 67 140/61 Physical Exam General Appearance: WD/WN, no apparent distress Eyes: normal inspection, sclerae normal ENT: hearing grossly normal Neck: trachea midline Respiratory/Chest: no accessory muscle use, + crackles (At the bases bilaterally) Cardiovascular: regular rate, rhythm, no edema, + systolic murmur (2/6 at the RUSB) Abdomen: normal bowel sounds, non tender, soft, + hernia (Umbilical, easily reducible and nontender) Extremities: no pedal edema, no calf tenderness, + pertinent finding (Left AKA) 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: alert, + disoriented (Only oriented to person but not place or time) Skin: normal color, warm/dry, + pertinent finding (Large sacral decubitus that is about 6 x 4 cm with wet exudate and mild erythema around the edges) Laboratory Results Last 24 Hours Test 07/05/18 17:58 07/05/18 17:59 07/05/18 18:18 07/05/18 20:23 Bedside Glucose 68 mg/dl 69 mg/dl 93 mg/dl 120 mg/dl Test 07/06/18 08:05 07/06/18 08:55 07/06/18 11:52 Bedside Glucose 79 mg/dl 135 mg/dl Sodium Level 128 mmol/L Potassium Level 4.0 mmol/L Chloride Level 93 mmol/L Carbon Dioxide Level 25 mmol/L Anion Gap 10.0 mmol/L Blood Urea Nitrogen 23 mg/dl Creatinine 3.01 mg/dl Est Creatinine Clear Calc Drug Dose 15.0 ml/min Estimated GFR () 17.1 Estimated GFR (Non- 14.7 BUN/Creatinine Ratio 7.5 Random Glucose 130 mg/dl Calcium Level 7.9 mg/dl Thyroid Stimulating Hormone (TSH) 4.040 uIu/ml Cortisol AM Sample 16.55 mcg/dl Assessment and Plan This patient is a 73yo female with a history of ESRD on HD, multiple hospitalizations for recurrent UTI and metabolic encephalopathy, suspected vascular dementia, DM 2, CAD, chronic pain syndrome on chronic opioids, COPD, PAF not on anticoagulation due to history of multiple hemorrhages, chronic diastolic CHF, history of CVA, and hypothyroidism, who presents with altered mental status. 1. Acute metabolic encephalopathy - I suspect that this could be due to infection of the sacral decubitus ulcer, but her mental status is not exactly improving today. There could be some element of toxic encephalopathy from opioid use, however that does seem to be chronic even at the [place] [facility]. She also has a history of recurrent Pseudomonas UTIs in the past which have been resistant to aztreonam. She has now been on aztreonam and vancomycin for 3 days with not much improvement CT head notable for chronic appearing lacunar infarcts. Could consider MRI brain but uncertain if it would change our current management. -Switch to imipenem and continue vancomycin -Infectious disease consultation placed for imipenem management as per antibiotic stewardship guidelines-appreciate their input -Try to obtain a cathed urinalysis sample and send for urine culture as well if she does have some urine in her bladder -Continue wound care-appreciate wound RN input 2. Suspected underlying vascular dementia -does have some MCI as per previous hospitalist notes who knew her before I believe she has #1 in the setting of a chronic dementia process - probably vascular in origin. -Supportive care -Continue antiplatelets for history of CVA 3. sacral decubitus ulcer, unstageable at this time - I believe the ulcer is infected and may be the cause of her altered MS as above. CT pelvis w/o osteomyelitis or abscess. Day #3 aztreonam and vancomycin IV, but switching to imipenem day #1 as above. Blood cx's continue to be negative. Wound care nurse & provider to see. May need debridement. 4. severe protein calorie malnutrition - she has lost over 100 pounds since November of 2016. Her albumin is <2. She has declined both physically and cognitively over time. Palliative care discussions are appropriate and she has had them in the past and actually filled out a POLST form with palliative care in April which is scanned into the chart-DNR/DNI, limited interventions, and a trial of antibiotics and artificial nutrition with comfort as the goal. Oral intake by report is quite poor. Not a good candidate for appetite stimulant. 5. ESRD on HD - M/W/F - appreciate nephrology assistance, electrolytes and volume status acceptable at this time -Follow daily BMP. -Continues on lisinopril 6. history of T2DM - at this time she is having hypoglycemia likely due to stress of #3. Last hemoglobin a1c in April 2018 was 4.5%. Her DM has resolved due to extensive weight loss. Despite D5w at 20cc/hr to maintain normoglycemia she had persistently low glucoses. A.m. cortisol level is normal, TSH is normal. She was then changed to D10W at 20cc/hr and glucose has improved. -DC D10W today and continue to observe with Accu-Cheks 7. DVT proph - heparin sc. 8. h/o CAD - noted; no ischemic symptoms at this time. 9. chronic pain syndrome - cont fentanyl patch and norco 5's prn for breakthrough. 10. h/o COPD - not in exacerbation at this time. 11. hypothyroidism - continue synthroid. TSH normal here 12. h/o PAF - noted. Remains in sinus rhythm -Continue amiodarone -Is not on anticoagulation due to history of multiple hemorrhages 13. chronic diastolic CHF - compensated. Disposition-prognosis is very poor, but she may turnaround with transition in antibiotics as above I discussed her case with the pt's sister, Feli, on 07/06 who has been named as her surrogate decision maker on her POLST form. She is ready to make decisions if the patient does not improve in the next several days as to whether to continue treatment or de-escalate care move towards comfort measures POLST form reviewed as above
[2018-07-06 16:00] VITALS: O2SAT 100
[2018-07-06] MEDS ORDERED: IMIPENEM/CILASTATIN CONSULT ACTIVE PRN (16:15)
[2018-07-06] MEDS: IMIPENEM-CILASTATIN 250 MG in DEXTROSE 5% 100ML 100 ML IV SCH ×2 (17:41→22:46)
[2018-07-06] MEDS: MIRTAZAPINE TAB 15 MG TAB PO SCH (21:00)
[2018-07-06] MEDS: NEPHROCAPS PO SCH (21:00)
[2018-07-06] MEDS: ATORVASTATIN 40 MG TAB PO SCH (21:13)
[2018-07-06] MEDS: DULOXETINE (CYMBALTA) 30 MG CAP PO SCH (21:14)
[2018-07-06 23:16] VITALS: BP 160/67; PULSE 80; TEMP 36.9; O2SAT 98
[2018-07-07] VITALS (7 sets, daily range): BP systolic 152–168; BP diastolic 52–71; PULSE 71–82; TEMP 37–37.2; O2SAT 97–100
[2018-07-07] MEDS: CHECK FENTANYL PATCH PLACEMENT SCH ×3 (00:03→15:43)
[2018-07-07] MEDS: IMIPENEM-CILASTATIN 250 MG in DEXTROSE 5% 100ML 100 ML IV SCH (06:06)
[2018-07-07] MEDS: LEVOTHYROXINE 75 MCG TAB PO SCH (06:06)
[2018-07-07] MEDS: HYDROCODONE/ACETAMIN 5/325MG TAB PO PRN (06:07)
[2018-07-07 07:51] LABS: BASO % 0.2 %; BASO ABS # 0.01 K/uL (0-0.2); EOS % 5.5 %; EOS ABS # 0.35 K/uL (0-0.5); HEMATOCRIT 33.7 % (37-47); HEMOGLOBIN 11.1 g/dL (12.0-16.0); IG# 0.01 K/uL (0.00-0.02); LYMPH % 7.4 %; LYMPH ABS # 0.47 K/uL (1.2-3.4); MEAN CORPUSCULAR HEMOGLOBIN 31.6 pg (25-34); MEAN CORPUSCULAR HGB CONC 32.9 g/dl (32-36); MEAN PLATELET VOLUME 11.5 fL (7.4-10.4); MONO % 3.6 %; MONO ABS # 0.23 K/uL (0.11-0.59); NEUT % 83.1 %; NEUT ABS # 5.32 K/uL (1.4-6.5); PLATELET COUNT 116 K/uL (130-400); RED CELL DISTRIBUTION WIDTH CV 16.5 % (11.5-14.5); RED CELL DISTRIBUTION WIDTH SD 58.1 fL (36.4-46.3); WHITE BLOOD COUNT 6.39 K/uL (4.8-10.8)
[2018-07-07 08:18] LABS: CALCIUM 8.1 mg/dl (8.5-10.1); CREATININE 3.88 mg/dl (0.60-1.20); POTASSIUM 4.4 mmol/L (3.5-5.1)
[2018-07-07] MEDS: INSULIN ASPART 100 UNITS/ML 3 ML PEN SC SCH ×4 (08:36→20:55)
[2018-07-07] MEDS: BOOST GLUCOSE CONTROL VANILLA PO SCH ×3 (08:37→17:36)
[2018-07-07] MEDS: AMIODARONE 200 MG TAB PO SCH (08:38)
[2018-07-07] MEDS: ASPIRIN 81 MG ECTAB PO SCH (08:38)
[2018-07-07] MEDS: CLOPIDOGREL BISULFATE 75 MG TAB PO SCH (08:38)
[2018-07-07] MEDS: SEVELAMER HYDROCH 800 MG TAB PO SCH ×3 (08:39→17:36)
[2018-07-07] MEDS: DOCUSATE SODIUM/SENNA 50/8.6MG TAB PO SCH ×2 (08:39→20:00)
[2018-07-07] MEDS: PANTOprazole SOD 40 MG TAB PO SCH (08:39)
[2018-07-07] MEDS: LISINOPRIL 10 MG TAB PO SCH (08:40)
[2018-07-07] MEDS: ALLOPURINOL 100 MG TAB PO SCH (08:40)
[2018-07-07] MEDS: HEPARIN SOD 5000 UNIT/0.5 ML CARP SQ SCH ×2 (08:47→21:02)
[2018-07-07] MEDS ORDERED: HYDROCODONE/ACETAMIN 5/325MG TAB PO PRN (10:00)
[2018-07-07] MEDS: HYDROCODONE/ACETAMI 10/325 TAB PO PRN ×2 (10:20→17:43)
[2018-07-07] MEDS: IMIPENEM-CILASTATIN 200 MG in DEXTROSE 5% 100ML 100 ML IV SCH ×2 (12:34→17:36)
[2018-07-07] MEDS: FENTANYL PATCH REMOVE & WASTE SCH (12:39)
[2018-07-07] MEDS: FENTANYL 12 MCG/HR TDSY TD SCH (12:57)
--- NOTE | 2018-07-07 14:49 | Hospitalist Progress Note ---
Hospitalist Progress Note Date of Service Jul 07, 2018. Subjective Pt evaluation today including: conversation w/ patient As per nursing, patient was much more alert and talkative earlier in the day. When I came to see her, again she was awake and alert but would not converse with me. She did also recently have pain medication again for the severe pain in her sacrum. Remains afebrile. Additional Comments: Difficult to obtain due to altered mental status Objective Vital Signs Date Time Temp Pulse Resp B/P (MAP) Pulse Ox O2 Delivery O2 Flow Rate FiO2 07/07/18 14:19 37.1 71 156/52 (86) 07/07/18 08:00 Room Air 07/07/18 07:22 37.0 73 16 152/68 (96) 99 Room Air 07/07/18 06:08 37.1 82 18 161/71 (101) 100 Room Air 07/06/18 23:16 36.9 80 17 160/67 (98) 98 Room Air 07/06/18 20:10 Room Air 07/06/18 16:00 100 Room Air 07/06/18 15:28 37.2 70 16 166/70 (102) 100 Room Air Physical Exam General Appearance: WD/WN, no apparent distress Eyes: normal inspection, sclerae normal ENT: hearing grossly normal Neck: trachea midline Respiratory/Chest: no respiratory distress, no accessory muscle use, + crackles (At the bases) Cardiovascular: regular rate, rhythm, no edema, no murmur Abdomen: normal bowel sounds, non tender, soft, + hernia (Umbilical, easily reducible) Extremities: + pertinent finding (Left AKA) 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: alert, + disoriented Skin: normal color, warm/dry Laboratory Results Last 24 Hours Test 07/06/18 16:57 07/06/18 20:16 07/07/18 00:05 07/07/18 02:18 Bedside Glucose 167 mg/dl 132 mg/dl 86 mg/dl 89 mg/dl Test 07/07/18 05:58 07/07/18 07:33 07/07/18 08:15 07/07/18 11:49 Bedside Glucose 77 mg/dl 82 mg/dl 121 mg/dl White Blood Count 6.39 K/uL Red Blood Count 3.51 M/uL Hemoglobin 11.1 g/dL Hematocrit 33.7 % Mean Corpuscular Volume 96.0 fL Mean Corpuscular Hemoglobin 31.6 pg Mean Corpuscular Hemoglobin Concent 32.9 g/dl Platelet Count 116 K/uL Mean Platelet Volume 11.5 fL Neutrophils (%) (Auto) 83.1 % Lymphocytes (%) (Auto) 7.4 % Monocytes (%) (Auto) 3.6 % Eosinophils (%) (Auto) 5.5 % Basophils (%) (Auto) 0.2 % Neutrophils # (Auto) 5.32 K/uL Lymphocytes # (Auto) 0.47 K/uL Monocytes # (Auto) 0.23 K/uL Eosinophils # (Auto) 0.35 K/uL Basophils # (Auto) 0.01 K/uL RDW Standard Deviation 58.1 fL RDW Coefficient of Variation 16.5 % Immature Granulocyte % (Auto) 0.2 % Immature Granulocyte # (Auto) 0.01 K/uL Sodium Level 127 mmol/L Potassium Level 4.4 mmol/L Chloride Level 91 mmol/L Carbon Dioxide Level 24 mmol/L Anion Gap 12.0 mmol/L Blood Urea Nitrogen 33 mg/dl Creatinine 3.88 mg/dl Est Creatinine Clear Calc Drug Dose 11.6 ml/min Estimated GFR () 12.6 Estimated GFR (Non- 10.8 BUN/Creatinine Ratio 8.6 Random Glucose 91 mg/dl Calcium Level 8.1 mg/dl Magnesium Level 2.0 mg/dl Test 07/07/18 14:00 Urine Color MARIN Urine Appearance TURBID Urine pH 7.5 Urine Specific Mathews 1.026 Urine Protein 1+ Urine Glucose (UA) 1+ Urine Ketones NEG Urine Occult Blood 1+ Urine Nitrite POS Urine Bilirubin NEG Urine Urobilinogen NEG Urine Leukocyte Esterase SMALL Urine WBC (Auto) >30 /hpf Urine RBC (Auto) 5-10 /hpf Urine Hyaline Casts (Auto) 1-5 /lpf Urine Epithelial Cells (Auto) >30 /lpf Urine Bacteria (Auto) 1+ Urine Renal Epithelial Cells 10-20 /lpf Urine Crystals CALCIUM OXALATE Urine Pathogenic Casts /lpf Urine Yeast (Auto) Assessment and Plan This patient is a 73yo female with a history of ESRD on HD, multiple hospitalizations for recurrent UTI and metabolic encephalopathy, suspected vascular dementia, DM 2, CAD, chronic pain syndrome on chronic opioids, COPD, PAF not on anticoagulation due to history of multiple hemorrhages, chronic diastolic CHF, history of CVA, and hypothyroidism, who presents with altered mental status. 1. Acute metabolic encephalopathy - I suspect that this could be due to infection of the sacral decubitus ulcer versus UTI- her mental status is still waxing and waning and perhaps this is from some element of toxic encephalopathy from opioid use. Overall, per nursing reports, she is improved since admission She also has a history of recurrent Pseudomonas UTIs in the past which have been resistant to aztreonam. She was initially on aztreonam and vancomycin for 3 days without much improvement. Switched to imipenem on 07/07 UA cathed sample obtained today is grossly abnormal. CT head notable for chronic appearing lacunar infarcts. Could consider MRI brain but uncertain if it would change our current management. -Continue imipenem and vancomycin -Infectious disease consultation placed for imipenem management-appreciate their input -Follow urine and blood cultures -Continue wound care-appreciate wound RN input-question if needs debridement of ulcer 2. Suspected underlying vascular dementia -does have some MCI as per previous hospitalist notes who knew her before I believe she has #1 in the setting of a chronic dementia process - probably vascular in origin. -Supportive care -Continue antiplatelets for history of CVA 3. sacral decubitus ulcer, unstageable at this time - I believe the ulcer is infected and at least one of the causes of her altered MS as above. CT pelvis w/o osteomyelitis or abscess. Received 3 days of aztreonam and now on day #4 of vancomycin IV, and imipenem day #2 Blood cx's continue to be negative. Wound care nurse & provider to see. May need debridement. 4. severe protein calorie malnutrition - she has lost over 100 pounds since November of 2016. Her albumin is <2. She has declined both physically and cognitively over time. Palliative care discussions are appropriate and she has had them in the past and actually filled out a POLST form with palliative care in April which is scanned into the chart-DNR/DNI, limited interventions, and a trial of antibiotics and artificial nutrition with comfort as the goal. Oral intake by report is quite poor. Not a good candidate for appetite stimulant. 5. ESRD on HD - M/W/F - appreciate nephrology assistance, electrolytes and volume status acceptable at this time -Follow daily BMP. -Continues on lisinopril 6. history of T2DM - at this time she is having hypoglycemia likely due to stress of #3. Last hemoglobin a1c in April 2018 was 4.5%. Her DM has resolved due to extensive weight loss. Despite D5w at 20cc/hr to maintain normoglycemia she had persistently low glucoses. A.m. cortisol level is normal, TSH is normal. She was then changed to D10W at 20cc/hr and glucose has improved. The D10W has since been discontinued and glucose checks have been acceptable 7. DVT proph - heparin sc. 8. h/o CAD - noted; no ischemic symptoms at this time. 9. chronic pain syndrome - cont fentanyl patch and will increase the dose of [place] to 10 mg for severe pain and she did not have her pain controlled with the 5 mg dose 10. h/o COPD - not in exacerbation at this time. 11. hypothyroidism - continue synthroid. TSH normal here 12. h/o PAF - noted. Remains in sinus rhythm -Continue amiodarone -Is not on anticoagulation due to history of multiple hemorrhages 13. chronic diastolic CHF - compensated. Disposition-prognosis is very poor, but she may turnaround with transition in antibiotics as above I discussed her case with the pt's sister, Feli, on 07/06 who has been named as her surrogate decision maker on her POLST form. She is ready to make decisions if the patient does not improve in the next several days as to whether to continue treatment or de-escalate care move towards comfort measures POLST form reviewed as above
--- NOTE | 2018-07-07 16:43 | Medical Consult ---
Consultation Date of Consultation: Jul 07, 2018. Attending Physician: Aida Chance MD Reason for Consultation: Sacral decubitus, recurrent urinary tract infections, imipenem management History of Present Illness 73-year-old female known to the Infectious Disease service with history of dementia, end-stage renal disease on dialysis, diabetes mellitus, heart failure , COPD, gout, who was admitted on July 03 with 1 day history of acute change in mental status. No obvious preceding events. Has been followed for nonhealing sacral decubitus ulcer, no evidence of osteomyelitis on x-rays. Cultures have been negative to date. No evidence of pneumonia on chest x-ray. Has been on empiric vancomycin and imipenem. No report of prior fever, and patient has been afebrile during this hospitalization. Past Medical/Surgical History Medical Problems: (1) Acute electrocardiogram changes Status: Acute (2) Altered mental status Status: Acute (3) Altered mental status Status: Acute (4) Anemia Status: Acute (5) Cellulitis Status: Acute (6) Change in mental status Status: Acute (7) CHF (congestive heart failure) Status: Acute (8) Confusion Status: Acute (9) Diarrhea Status: Acute (10) Elevated troponin Status: Acute (11) End stage kidney disease Status: Acute (12) Epistaxis Status: Acute (13) Hypotension Status: Acute (14) Metabolic encephalopathy Status: Acute (15) PNA (pneumonia) Status: Acute (16) Respiratory failure Status: Acute (17) Sacral ulcer Status: Acute (18) Sepsis Status: Acute (19) Sepsis Status: Acute (20) Sepsis Status: Acute (21) Vomiting Status: Acute Medical Problems: (1) Altered mental status (2) Altered mental status (3) CAD (coronary artery disease) (4) Cellulitis of left lower extremity without foot (5) COPD (chronic obstructive pulmonary disease) (6) Depression (7) Diabetes mellitus type 2 in obese (8) Dialysis patient (9) Diastolic CHF (10) Dyslipidemia (11) End stage renal disease (12) End-stage renal disease on hemodialysis (13) ESRD (end stage renal disease) (14) gangrene left leg (15) Gout (16) HTN (hypertension) (17) Hyperkalemia (18) Hypothyroidism (19) Loss of consciousness (20) PAF (paroxysmal atrial fibrillation) (21) Pneumonia (22) Pseudomonas urinary tract infection (23) Recurrent epistaxis (24) Sepsis (25) Syncope (26) Syncope (27) UTI (urinary tract infection) Surgical Problems: (1) bilat ankle surgery (2) Hernia, abdominal (3) History of appendectomy (4) Nasal septoplasty (5) Repair of rotator cuff by suture (6) right elbow surgery Family History Cancer Heart disease Hypertension Social History Smoking Status: Former Smoker Drug Use: none Marital Status: Housing Status: residential Occupation Status: retired Allergies Coded Allergies: Amoxicillin (Verified Allergy, Intermediate, HIVES, 07/03/18) HAS TOLERATED CEFEPIME, KEFLEX, AND ROCEPHIN IN PAST ADMISSIONS Clavulanic Acid (Verified Allergy, Intermediate, HIVES, 07/03/18) hives NSAIDs (Verified Allergy, Unknown, UNKNOWN, 07/03/18) JARET Inhibitors (Verified Adverse Reaction, Mild, HYPERKALEMIA, 07/03/18) 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 Current Inpatient Medications Current Inpatient Medications Medications (Trade) Dose Ordered Sig/Gelacio Route Start Time Stop Time Status Last Admin Dose Admin Allopurinol (Zyloprim Tab) 100 mg QAM PO 07/04/18 08:00 08/03/18 08:59 07/07/18 08:40 100 MG Amiodarone HCl (Cordarone Tab) 200 mg QAM PO 07/04/18 08:00 08/03/18 08:59 07/07/18 08:38 200 MG Aspirin (Ecotrin Tab) 81 mg QAM PO 07/04/18 08:00 08/03/18 08:59 07/07/18 08:38 81 MG Atorvastatin Calcium (Lipitor Tab) 40 mg HS PO 07/03/18 21:00 08/02/18 20:59 07/06/18 21:13 40 MG Clopidogrel Bisulfate (plAVix TAB) 75 mg QAM PO 07/04/18 08:00 08/03/18 08:59 07/07/18 08:38 75 MG Duloxetine HCl (Cymbalta Cap) 30 mg HS PO 07/03/18 21:00 08/02/18 20:59 07/06/18 21:14 30 MG Levothyroxine Sodium (Synthroid Tab) 75 mcg DAILYBB PO 07/04/18 06:30 08/03/18 06:59 07/07/18 06:06 75 MCG Lisinopril (Zestril Tab) 10 mg QAM PO 07/04/18 08:00 08/03/18 08:59 07/07/18 08:40 10 MG Senna/Docusate Sodium (Senokot S Tab) 2 tab BID PO 07/03/18 20:00 08/02/18 20:59 Albuterol Sulfate (Ventolin 0.083% 2.5MG/3ML Neb) 2.5 mg Q6H PRN INH 07/03/18 14:00 08/02/18 13:59 Mirtazapine (Remeron Tab) 7.5 mg HS PO 07/03/18 21:00 08/02/18 20:59 07/03/18 22:03 7.5 MG Pantoprazole Sodium (Protonix Tab) 40 mg QAM PO 07/04/18 08:00 08/03/18 08:59 07/07/18 08:39 40 MG Sevelamer HCl (Renagel Tab) 1,600 mg TIDM PO 07/03/18 17:00 08/02/18 17:59 07/07/18 12:54 1,600 MG Miscellaneous Information (Order Awaiting Action) 1 ea QS N/A 07/03/18 16:00 08/02/18 15:59 Acetaminophen (Tylenol Tab) 650 mg Q4H PRN PO 07/03/18 14:00 08/02/18 13:59 07/04/18 10:47 650 MG Al Hydrox/Mg Hydrox/Simethicone (Maalox Max Susp) 15 ml Q4H PRN PO 07/03/18 14:00 08/02/18 13:59 Magnesium Hydroxide (Milk Of Magnesia Susp) 30 ml Q6H PRN PO 07/03/18 14:00 08/02/18 13:59 Polyethylene (Miralax Powder Packet) 17 gm DAILY PRN PO 07/03/18 14:00 08/02/18 13:59 Ondansetron HCl (Zofran Inj) 4 mg Q6H PRN IV 07/03/18 14:00 08/02/18 13:59 07/07/18 14:06 4 MG Heparin Sodium (Porcine) (Heparin Sq 5000 Unit/0.5ml) 5,000 unit Q12H SQ 07/03/18 21:00 08/02/18 20:59 07/07/18 08:47 5,000 UNIT Glucose (Glucose 40% Gel) 15-30 GRAMS 15 GRAMS... UD PRN PO 07/03/18 15:15 08/02/18 15:14 Glucose (Glucose Chew Tab) 4-8 Tablets 4 Tabl... UD PRN PO 07/03/18 15:15 08/02/18 15:14 Dextrose (Dextrose 50% 50ML Syringe) 25-50ML 25ML FOR ... UD PRN IV 07/03/18 15:15 08/02/18 15:14 Glucagon (Glucagon Inj) 1 mg UD PRN IM 07/03/18 15:15 08/02/18 15:14 Carbohydrates (Carbohydrates For Hypoglycemia) 15-30 GRAMS 15 grams if BSG 54-69... UD PRN PO 07/03/18 15:15 08/02/18 15:14 07/05/18 18:13 15 GM Vitamin B Complex/ Vit C/Folic Acid (Nephrocaps) 1 cap HS PO 07/04/18 21:00 08/03/18 08:59 Fentanyl (Duragesic Patch) 12 mcg Q72H TD 07/04/18 13:00 07/18/18 12:59 07/07/18 12:57 12 MCG Miscellaneous (Fentanyl Patch Remove & Waste) 1 ea Q72H N/A 07/04/18 12:59 08/03/18 12:58 07/07/18 12:39 1 EA Miscellaneous Information (Check Fentanyl Patch Placement) 1 ea QS N/A 07/04/18 16:00 08/03/18 15:59 07/07/18 15:43 1 EA Ioversol (Optiray 320) 111 ml UD PRN IV 07/04/18 13:30 07/08/18 13:29 Enteral Nutritional Formula (Boost Glucose Control) 1 can TIDM PO 07/04/18 17:00 08/03/18 16:59 07/07/18 12:53 1 CAN Insulin Aspart (novoLOG ASPART) SLIDING SCALE G... ACHS SC 07/04/18 16:30 08/03/18 16:29 07/06/18 17:33 1 UNITS Vancomycin HCl (Consult) 1 ea UD PRN N/A 07/04/18 15:15 08/03/18 15:14 Imipenem/ Cilastatin Sodium (Consult) 1 ea UD PRN N/A 07/06/18 16:15 08/05/18 16:14 Imipenem/ Cilastatin Sodium 200 mg/Dextrose 108 ml @ 108 mls/hr Q6H IV 07/07/18 12:00 07/17/18 11:59 07/07/18 12:34 108 MLS/HR Acetaminophen/ Hydrocodone Bitart ([place] 5/325 Tab) 1 tab Q4H PRN PO 07/07/18 10:00 07/18/18 15:14 Acetaminophen/ Hydrocodone Bitart ([place] 10/325 Tab) 1 tab Q6H PRN PO 07/07/18 10:00 07/21/18 09:59 07/07/18 10:20 1 TAB Review of Systems not obtainable because of patient's mental status Physical Exam Date Time Temp Pulse Resp B/P (MAP) Pulse Ox O2 Delivery O2 Flow Rate FiO2 07/07/18 16:00 100 Room Air 07/07/18 15:11 37.2 71 16 156/52 (86) 97 Room Air 07/07/18 14:19 37.1 71 156/52 (86) 07/07/18 08:00 Room Air 07/07/18 07:22 37.0 73 16 152/68 (96) 99 Room Air 07/07/18 06:08 37.1 82 18 161/71 (101) 100 Room Air 07/06/18 23:16 36.9 80 17 160/67 (98) 98 Room Air 07/06/18 20:10 Room Air General Appearance: WD/WN, no apparent distress Head: normocephalic, atraumatic Eyes: normal inspection, EOMI, sclerae normal ENT: normal ENT inspection, pharynx normal Neck: supple, no adenopathy, thyroid normal, trachea midline Respiratory/Chest: chest non-tender, no respiratory distress, no accessory muscle use, + rales ( bibasilar) Cardiovascular: regular rate, rhythm, no gallop, + systolic murmur Abdomen/GI: normal bowel sounds, non tender, soft, no organomegaly Back: normal inspection, no CVA tenderness Extremities/Musculoskelatal: no calf tenderness, normal capillary refill, non- tender Neurologic/Psych: alert, + disoriented Skin: normal color, no rash, + pertinent finding ( stage IV sacral decubitus with necrotic debris) Laboratory Results Date/Time Source Procedure Growth Status 07/07/18 14:00 Urine,Catheterized Urine Culture Pending Received Last 24 Hours Test 07/06/18 16:57 07/06/18 20:16 07/07/18 00:05 07/07/18 02:18 Bedside Glucose 167 mg/dl 132 mg/dl 86 mg/dl 89 mg/dl Test 07/07/18 05:58 07/07/18 07:33 07/07/18 08:15 07/07/18 11:49 Bedside Glucose 77 mg/dl 82 mg/dl 121 mg/dl White Blood Count 6.39 K/uL Red Blood Count 3.51 M/uL Hemoglobin 11.1 g/dL Hematocrit 33.7 % Mean Corpuscular Volume 96.0 fL Mean Corpuscular Hemoglobin 31.6 pg Mean Corpuscular Hemoglobin Concent 32.9 g/dl Platelet Count 116 K/uL Mean Platelet Volume 11.5 fL Neutrophils (%) (Auto) 83.1 % Lymphocytes (%) (Auto) 7.4 % Monocytes (%) (Auto) 3.6 % Eosinophils (%) (Auto) 5.5 % Basophils (%) (Auto) 0.2 % Neutrophils # (Auto) 5.32 K/uL Lymphocytes # (Auto) 0.47 K/uL Monocytes # (Auto) 0.23 K/uL Eosinophils # (Auto) 0.35 K/uL Basophils # (Auto) 0.01 K/uL RDW Standard Deviation 58.1 fL RDW Coefficient of Variation 16.5 % Immature Granulocyte % (Auto) 0.2 % Immature Granulocyte # (Auto) 0.01 K/uL Sodium Level 127 mmol/L Potassium Level 4.4 mmol/L Chloride Level 91 mmol/L Carbon Dioxide Level 24 mmol/L Anion Gap 12.0 mmol/L Blood Urea Nitrogen 33 mg/dl Creatinine 3.88 mg/dl Est Creatinine Clear Calc Drug Dose 11.6 ml/min Estimated GFR () 12.6 Estimated GFR (Non- 10.8 BUN/Creatinine Ratio 8.6 Random Glucose 91 mg/dl Calcium Level 8.1 mg/dl Magnesium Level 2.0 mg/dl Test 07/07/18 14:00 Urine Color MARIN Urine Appearance TURBID Urine pH 7.5 Urine Specific [place] 1.026 Urine Protein 1+ Urine Glucose (UA) 1+ Urine Ketones NEG Urine Occult Blood 1+ Urine Nitrite POS Urine Bilirubin NEG Urine Urobilinogen NEG Urine Leukocyte Esterase SMALL Urine WBC (Auto) >30 /hpf Urine RBC (Auto) 5-10 /hpf Urine Hyaline Casts (Auto) 1-5 /lpf Urine Epithelial Cells (Auto) >30 /lpf Urine Bacteria (Auto) 1+ Urine Renal Epithelial Cells 10-20 /lpf Urine Crystals CALCIUM OXALATE Urine Pathogenic Casts /lpf Urine Yeast (Auto) Patient Name: AMBER CORREA Unit Number: [id number] Dictated: [id number] Transcribed: 07/04/181349 DONNA Printed Date/Time: [~ rep prt dt]/[~ rep prt tm] [~ rep ct labl] - [~ rep ct ivnm] [facility] [place] [address] Dictated: 07/[id number] Transcribed: 07/04/181349 JA Printed Date/Time: [~ rep prt dt]/[~ rep prt tm] [~ rep ct labl] - [~ rep ct ivnm] CT OF THE PELVIS WITH CONTRAST CLINICAL HISTORY: Sacral decubitus ulcer. COMPARISON STUDY: CT of the abdomen and pelvis August 03, 2017. TECHNIQUE: Axial images of the pelvis were obtained following intravenous injection of 103 cc Optiray 320 IV. Sagittal and coronal reconstructions were viewed. FINDINGS: Note is made of moderate infiltration posterior to the upper sacrum and the coccyx without fluid collection to suggest an abscess. This favors cellulitis likely related to a sacral decubitus ulcer which could be correlated clinically. No bony destruction of the sacrum or coccyx is identified by CT. No soft tissue gas is present. Extensive atherosclerotic plaque is noted. Note is made of mild wall thickening and hyperemia visualized portions of the colon and the rectum. A bowel containing ventral hernias noted but does not appear to result in a bowel obstruction. Sacroiliac joints and symphysis pubis are intact. IMPRESSION: 1. Moderate infiltration posterior to the inferior sacrum and the coccyx consistent with cellulitis. No fluid collection to suggest abscess. No bony destruction to suggest osteomyelitis by CT although the cellulitis/infiltration does extend to the bone. No soft tissue gas. 2. Wall thickening of the visualized portions of the colon and rectum which favors a nonspecific proctocolitis. Electronically signed by: Charlie Hayden M.D. 07/04/2018 2:04 PM Dictated Date/Time: 07/04/2018 1:50 PM The status of this report is Signed. Draft = Not yet reviewed or approved by Radiologist. Signed = Reviewed and approved by Radiologist. <AttendingPhy>Nicolas Massey MD</AttendingPhy> <FamilyPhy>Wing Toro M.D.</FamilyPhy> <PrimaryPhy>Wing Toro M.D.</PrimaryPhy> <UnitNumber> [id number]</UnitNumber> <VisitNumber>[id number]</VisitNumber> <PatientName> AMBER CORREA</PatientName> <DateOfBirth>1945</DateOfBirth> <Location>C.4E< /Location> <ServiceDate>07/03/18</ServiceDate> <MNE>ESINDI</MNE> <OrderingPhy> Nicolas Massey MD</OrderingPhy> <OrderingPhyMNE>f rep ord dr song</ OrderingPhyMNE> <DictatingPhyMNE>f rep dict dr song</DictatingPhyMNE> <CCListMNE> f rep ct nohemi</CCListMNE> <AdmittingPhyMNE>f pt admit dr song</AdmittingPhyMNE> < AttendingPhyMNE>f pt attend dr song</AttendingPhyMNE> <ConsultingPhyMNE>f pt consult dr song</ConsultingPhyMNE> <FamilyPhyMNE>f pt fam dr song</FamilyPhyMNE> <OtherPhyMNE>f pt other dr song</OtherPhyMNE> < PrimaryPhyMNE>f pt prim care dr song</PrimaryPhyMNE> <ReferringPhyMNE>f pt referring dr song</ReferringPhyMNE> Assessment & Plan 73-year-old female with chronic sacral decubitus ulcer and recurrent urinary tract infections now with acute encephalopathy, not clear whether related to infection from decubitus or urinary tract or other source. Pending final blood culture and urine cultures, imipenem and vancomycin should provide adequate coverage. Will adjust once further information available. Will follow.
[2018-07-07] MEDS: ACETAMINOPHEN 325 MG TAB PO PRN (19:44)
[2018-07-07] MEDS: DULOXETINE (CYMBALTA) 30 MG CAP PO SCH (20:52)
[2018-07-07] MEDS: MIRTAZAPINE TAB 15 MG TAB PO SCH (20:53)
[2018-07-07] MEDS: NEPHROCAPS PO SCH (20:54)
[2018-07-07] MEDS: ATORVASTATIN 40 MG TAB PO SCH (20:54)
[2018-07-08] VITALS (21 sets, daily range): BP systolic 73–165; BP diastolic 36–69; PULSE 67–76; TEMP 36.5–37.3; O2SAT 98–100
[2018-07-08] MEDS: CHECK FENTANYL PATCH PLACEMENT SCH ×3 (00:10→15:13)
[2018-07-08] MEDS: IMIPENEM-CILASTATIN 200 MG in DEXTROSE 5% 100ML 100 ML IV SCH ×4 (00:10→17:20)
[2018-07-08] MEDS: HYDROCODONE/ACETAMI 10/325 TAB PO PRN (05:11)
[2018-07-08] MEDS: LEVOTHYROXINE 75 MCG TAB PO SCH (05:11)
[2018-07-08] MEDS: CARBOHYDRATES FOR HYPOGLYCEMIA PO PRN (05:15)
[2018-07-08 06:56] LABS: BASO % 0.3 %; BASO ABS # 0.01 K/uL (0-0.2); EOS % 13.2 %; EOS ABS # 0.48 K/uL (0-0.5); HEMATOCRIT 34.8 % (37-47); IG# 0.01 K/uL (0.00-0.02); LYMPH % 18.4 %; LYMPH ABS # 0.67 K/uL (1.2-3.4); MEAN CELL VOLUME 96.1 fL (80-100); MEAN CORPUSCULAR HEMOGLOBIN 30.4 pg (25-34); MEAN CORPUSCULAR HGB CONC 31.6 g/dl (32-36); MEAN PLATELET VOLUME 11.8 fL (7.4-10.4); MONO % 7.4 %; MONO ABS # 0.27 K/uL (0.11-0.59); NEUT % 60.4 %; NEUT ABS # 2.21 K/uL (1.4-6.5); PLATELET COUNT 121 K/uL (130-400); RED CELL DISTRIBUTION WIDTH CV 16.4 % (11.5-14.5); RED CELL DISTRIBUTION WIDTH SD 58.2 fL (36.4-46.3); WHITE BLOOD COUNT 3.65 K/uL (4.8-10.8)
[2018-07-08] MEDS: AMIODARONE 200 MG TAB PO SCH (07:41)
[2018-07-08] MEDS: SEVELAMER HYDROCH 800 MG TAB PO SCH ×3 (07:41→17:18)
[2018-07-08] MEDS: CLOPIDOGREL BISULFATE 75 MG TAB PO SCH (07:41)
[2018-07-08] MEDS: ALLOPURINOL 100 MG TAB PO SCH (07:42)
[2018-07-08] MEDS: PANTOprazole SOD 40 MG TAB PO SCH (07:42)
[2018-07-08] MEDS: LISINOPRIL 10 MG TAB PO SCH (07:43)
[2018-07-08] MEDS: ASPIRIN 81 MG ECTAB PO SCH (07:43)
[2018-07-08] MEDS: DOCUSATE SODIUM/SENNA 50/8.6MG TAB PO SCH ×2 (07:44→19:45)
[2018-07-08] MEDS: BOOST GLUCOSE CONTROL VANILLA PO SCH ×3 (07:45→17:00)
[2018-07-08 07:50] LABS: CALCIUM 8.5 mg/dl (8.5-10.1); CREATININE 5.24 mg/dl (0.60-1.20); POTASSIUM 4.7 mmol/L (3.5-5.1)
[2018-07-08] MEDS: HEPARIN SOD 5000 UNIT/0.5 ML CARP SQ SCH ×2 (07:50→21:46)
[2018-07-08] MEDS: INSULIN ASPART 100 UNITS/ML 3 ML PEN SC SCH ×4 (08:28→21:00)
--- NOTE | 2018-07-08 10:23 | Dialysis Progress Note ---
Nephrology Dialysis Note Date of Service: Jul 08, 2018. Subjective Patient with end-stage renal disease complicated by altered mental status. Patient was seen on dialysis this morning. She is tolerating dialysis well. She denied any shortness of breath or confusion Objective Date Time Temp Pulse Resp B/P (MAP) Pulse Ox O2 Delivery O2 Flow Rate FiO2 07/08/18 10:00 75 109/46 07/08/18 09:45 72 94/42 07/08/18 09:30 75 111/52 07/08/18 09:15 73 122/47 07/08/18 09:00 71 163/66 07/08/18 08:58 72 150/62 07/08/18 08:23 36.8 72 18 165/ (54) 100 Room Air 07/07/18 22:50 37.0 80 20 168/68 (101) 99 Room Air 07/07/18 20:00 99 Room Air 07/07/18 16:00 100 Room Air 07/07/18 15:11 37.2 71 16 156/52 (86) 97 Room Air 07/07/18 14:19 37.1 71 156/52 (86) Physical Exam: General-comfortable lying in bed no respiratory distress Eyes-pupils equal and reactive to light ENT-normal on inspection Neck-supple, trachea is midline Lungs-bilateral crackles Heart-S1 and S2 regular rate and rhythm Abdomen-soft nondistended bowel sounds present Extremities-left amputation, no edema in the right leg Neuro-oriented 2, tremulous Current Inpatient Medications Medications (Trade) Dose Ordered Sig/Gelacio Route Start Time Stop Time Status Last Admin Dose Admin Allopurinol (Zyloprim Tab) 100 mg QAM PO 07/04/18 08:00 08/03/18 08:59 07/08/18 07:42 100 MG Amiodarone HCl (Cordarone Tab) 200 mg QAM PO 07/04/18 08:00 08/03/18 08:59 07/08/18 07:41 200 MG Aspirin (Ecotrin Tab) 81 mg QAM PO 07/04/18 08:00 08/03/18 08:59 07/08/18 07:43 81 MG Atorvastatin Calcium (Lipitor Tab) 40 mg HS PO 07/03/18 21:00 08/02/18 20:59 07/07/18 20:54 40 MG Clopidogrel Bisulfate (plAVix TAB) 75 mg QAM PO 07/04/18 08:00 08/03/18 08:59 07/08/18 07:41 75 MG Duloxetine HCl (Cymbalta Cap) 30 mg HS PO 07/03/18 21:00 08/02/18 20:59 07/07/18 20:52 30 MG Levothyroxine Sodium (Synthroid Tab) 75 mcg DAILYBB PO 07/04/18 06:30 08/03/18 06:59 07/08/18 05:11 75 MCG Lisinopril (Zestril Tab) 10 mg QAM PO 07/04/18 08:00 08/03/18 08:59 07/08/18 07:43 10 MG Senna/Docusate Sodium (Senokot S Tab) 2 tab BID PO 07/03/18 20:00 08/02/18 20:59 07/08/18 07:44 2 TAB Albuterol Sulfate (Ventolin 0.083% 2.5MG/3ML Neb) 2.5 mg Q6H PRN INH 07/03/18 14:00 08/02/18 13:59 Mirtazapine (Remeron Tab) 7.5 mg HS PO 07/03/18 21:00 08/02/18 20:59 07/07/18 20:53 7.5 MG Pantoprazole Sodium (Protonix Tab) 40 mg QAM PO 07/04/18 08:00 08/03/18 08:59 07/08/18 07:42 40 MG Sevelamer HCl (Renagel Tab) 1,600 mg TIDM PO 07/03/18 17:00 08/02/18 17:59 07/08/18 07:41 1,600 MG Miscellaneous Information (Order Awaiting Action) 1 ea QS N/A 07/03/18 16:00 08/02/18 15:59 Acetaminophen (Tylenol Tab) 650 mg Q4H PRN PO 07/03/18 14:00 08/02/18 13:59 07/07/18 19:44 650 MG Al Hydrox/Mg Hydrox/Simethicone (Maalox Max Susp) 15 ml Q4H PRN PO 07/03/18 14:00 08/02/18 13:59 Magnesium Hydroxide (Milk Of Magnesia Susp) 30 ml Q6H PRN PO 07/03/18 14:00 08/02/18 13:59 Polyethylene (Miralax Powder Packet) 17 gm DAILY PRN PO 07/03/18 14:00 08/02/18 13:59 Ondansetron HCl (Zofran Inj) 4 mg Q6H PRN IV 07/03/18 14:00 08/02/18 13:59 07/07/18 14:06 4 MG Heparin Sodium (Porcine) (Heparin Sq 5000 Unit/0.5ml) 5,000 unit Q12H SQ 07/03/18 21:00 08/02/18 20:59 07/08/18 07:50 5,000 UNIT Glucose (Glucose 40% Gel) 15-30 GRAMS 15 GRAMS... UD PRN PO 07/03/18 15:15 08/02/18 15:14 Glucose (Glucose Chew Tab) 4-8 Tablets 4 Tabl... UD PRN PO 07/03/18 15:15 08/02/18 15:14 Dextrose (Dextrose 50% 50ML Syringe) 25-50ML 25ML FOR ... UD PRN IV 07/03/18 15:15 08/02/18 15:14 Glucagon (Glucagon Inj) 1 mg UD PRN IM 07/03/18 15:15 08/02/18 15:14 Carbohydrates (Carbohydrates For Hypoglycemia) 15-30 GRAMS 15 grams if BSG 54-69... UD PRN PO 07/03/18 15:15 08/02/18 15:14 07/08/18 05:15 15 GM Vitamin B Complex/ Vit C/Folic Acid (Nephrocaps) 1 cap HS PO 07/04/18 21:00 08/03/18 08:59 Fentanyl (Duragesic Patch) 12 mcg Q72H TD 07/04/18 13:00 07/18/18 12:59 07/07/18 12:57 12 MCG Miscellaneous (Fentanyl Patch Remove & Waste) 1 ea Q72H N/A 07/04/18 12:59 08/03/18 12:58 07/07/18 12:39 1 EA Miscellaneous Information (Check Fentanyl Patch Placement) 1 ea QS N/A 07/04/18 16:00 08/03/18 15:59 07/08/18 07:44 1 EA Ioversol (Optiray 320) 111 ml UD PRN IV 07/04/18 13:30 07/08/18 13:29 Enteral Nutritional Formula (Boost Glucose Control) 1 can TIDM PO 07/04/18 17:00 08/03/18 16:59 07/07/18 17:36 1 CAN Insulin Aspart (novoLOG ASPART) SLIDING SCALE G... ACHS SC 07/04/18 16:30 08/03/18 16:29 07/06/18 17:33 1 UNITS Vancomycin HCl (Consult) 1 ea UD PRN N/A 07/04/18 15:15 08/03/18 15:14 Imipenem/ Cilastatin Sodium (Consult) 1 ea UD PRN N/A 07/06/18 16:15 08/05/18 16:14 Imipenem/ Cilastatin Sodium 200 mg/Dextrose 108 ml @ 108 mls/hr Q6H IV 07/07/18 12:00 07/17/18 11:59 07/08/18 05:33 108 MLS/HR Acetaminophen/ Hydrocodone Bitart ([place] 5/325 Tab) 1 tab Q4H PRN PO 07/07/18 10:00 07/18/18 15:14 Acetaminophen/ Hydrocodone Bitart ([place] 10/325 Tab) 1 tab Q6H PRN PO 07/07/18 10:00 07/21/18 09:59 07/08/18 05:11 1 TAB Last 24 Hours Test 07/07/18 11:49 07/07/18 14:00 07/07/18 16:59 07/07/18 20:21 Bedside Glucose 121 mg/dl 103 mg/dl 117 mg/dl Urine Color MARIN Urine Appearance TURBID Urine pH 7.5 Urine Specific [place] 1.026 Urine Protein 1+ Urine Glucose (UA) 1+ Urine Ketones NEG Urine Occult Blood 1+ Urine Nitrite POS Urine Bilirubin NEG Urine Urobilinogen NEG Urine Leukocyte Esterase SMALL Urine WBC (Auto) >30 /hpf Urine RBC (Auto) 5-10 /hpf Urine Hyaline Casts (Auto) 1-5 /lpf Urine Epithelial Cells (Auto) >30 /lpf Urine Bacteria (Auto) 1+ Urine Renal Epithelial Cells 10-20 /lpf Urine Crystals CALCIUM OXALATE Urine Pathogenic Casts /lpf Urine Yeast (Auto) Test 07/08/18 00:03 07/08/18 05:12 07/08/18 05:16 07/08/18 05:31 White Blood Count 3.65 K/uL Red Blood Count 3.62 M/uL Hemoglobin 11.0 g/dL Hematocrit 34.8 % Mean Corpuscular Volume 96.1 fL Mean Corpuscular Hemoglobin 30.4 pg Mean Corpuscular Hemoglobin Concent 31.6 g/dl Platelet Count 121 K/uL Mean Platelet Volume 11.8 fL Neutrophils (%) (Auto) 60.4 % Lymphocytes (%) (Auto) 18.4 % Monocytes (%) (Auto) 7.4 % Eosinophils (%) (Auto) 13.2 % Basophils (%) (Auto) 0.3 % Neutrophils # (Auto) 2.21 K/uL Lymphocytes # (Auto) 0.67 K/uL Monocytes # (Auto) 0.27 K/uL Eosinophils # (Auto) 0.48 K/uL Basophils # (Auto) 0.01 K/uL RDW Standard Deviation 58.2 fL RDW Coefficient of Variation 16.4 % Immature Granulocyte % (Auto) 0.3 % Immature Granulocyte # (Auto) 0.01 K/uL Bedside Glucose 64 mg/dl 84 mg/dl 70 mg/dl Test 07/08/18 05:56 07/08/18 06:36 07/08/18 08:03 Bedside Glucose 104 mg/dl 99 mg/dl Sodium Level 124 mmol/L Potassium Level 4.7 mmol/L Chloride Level 90 mmol/L Carbon Dioxide Level 22 mmol/L Anion Gap 13.0 mmol/L Blood Urea Nitrogen 45 mg/dl Creatinine 5.24 mg/dl Est Creatinine Clear Calc Drug Dose 8.6 ml/min Estimated GFR () 8.7 Estimated GFR (Non- 7.5 BUN/Creatinine Ratio 8.6 Random Glucose 100 mg/dl Calcium Level 8.5 mg/dl Magnesium Level 2.2 mg/dl Random Vancomycin Level 17.8 mcg/ml Date/Time Source Procedure Growth Status 07/07/18 14:00 Urine,Catheterized Urine Culture Pending Received Assessment & Plan 73 y/o F w/ ESRD, CAD, PVD s/p amputation, DM, HFpEF admitted from [place] w/ altered MS on 07/03. volume status and chemsitries ok; MS not improved though ESRD Her volume status, electrolytes, anemia are all acceptable at this time; she is tolerating dialysis well this morning. She is planned for 3-1/2 hour dialysis, to get UF 3 L, sodium bath of 135 and 3K. Anemia of chronic disease -no epo w/ HD indicated -q48 hr cbc pls Altered MS -Improved with dialysis.
--- NOTE | 2018-07-08 11:21 | Pharmacy Progress Note ---
Pharmacy Abx Dose Progress Nt Date of Service Jul 08, 2018. Pharmacy Dosing Scope The patient is currently receiving the following antimicrobial agents per Pharmacy consult: Vancomycin IV - dosed based on random drug levels Primaxin 200 mg IV every 6 hours Objective Height (Feet): 5 Height (Inches): 5.00 Weight (Kilograms): 62.000 Vital Signs (Past 12Hrs) Vital Signs Past 12 Hours Date Time Temp Pulse Resp B/P (MAP) Pulse Ox O2 Delivery O2 Flow Rate FiO2 07/08/18 10:45 73 96/41 07/08/18 10:30 76 106/49 07/08/18 10:15 74 93/43 07/08/18 10:00 75 109/46 07/08/18 09:45 72 94/42 07/08/18 09:30 75 111/52 07/08/18 09:15 73 122/47 07/08/18 09:00 71 163/66 07/08/18 08:58 72 150/62 07/08/18 08:50 36.6 72 152/69 (96) 07/08/18 08:23 36.8 72 18 165/ (54) 100 Room Air Lab Results (24Hrs) Laboratory Tests (24 Hours) Test 07/08/18 00:03 White Blood Count 3.65 K/uL (4.8-10.8) L Red Blood Count 3.62 M/uL (4.2-5.4) L Hemoglobin 11.0 g/dL (12.0-16.0) L Hematocrit 34.8 % (37-47) L Mean Corpuscular Volume 96.1 fL (80-100) Mean Corpuscular Hemoglobin 30.4 pg (25-34) Mean Corpuscular Hemoglobin Concent 31.6 g/dl (32-36) L Platelet Count 121 K/uL (130-400) L Mean Platelet Volume 11.8 fL (7.4-10.4) H Neutrophils (%) (Auto) 60.4 % Lymphocytes (%) (Auto) 18.4 % Monocytes (%) (Auto) 7.4 % Eosinophils (%) (Auto) 13.2 % Basophils (%) (Auto) 0.3 % Neutrophils # (Auto) 2.21 K/uL (1.4-6.5) Lymphocytes # (Auto) 0.67 K/uL (1.2-3.4) L Monocytes # (Auto) 0.27 K/uL (0.11-0.59) Eosinophils # (Auto) 0.48 K/uL (0-0.5) Basophils # (Auto) 0.01 K/uL (0-0.2) Micro Results Date/Time Source Procedure Growth Status 07/03/18 11:10 Blood Blood Culture - Preliminary NO GROWTH TO DATE. Resulted 07/03/18 11:07 Blood Blood Culture - Preliminary NO GROWTH TO DATE. Resulted 07/07/18 14:00 Urine,Catheterized Urine Culture Pending Received Risk Factors for Resistance * Resident in a residential or extended-care facility * Hospitalization for 48 hours or more within the past 90 days * Chronic dialysis within the past 30 days Assessment & Plan Assessment 73 year old female receiving vancomycin and primaxin IV for sacral decubitus ulcer and recurrent UTI * Day # 5 of antimicrobial therapy * h/o ESRD on HD - patient had dialysis this AM * Blood cultures reported no growth to date, urine culture is pending Plan Vancomycin IV * Trough level of 17.8 mcg/mL is therapeutic * Vancomycin 500 mg IV will be ordered for today after dialysis. * Random level will be ordered prior to next HD session (likely on Sunday) Primaxin IV * continue renally adjusted dose of 200 mg IV every 6 hours Pharmacy will continue to follow and will adjust dose/frequency as necessary. Thank you.
[2018-07-08] MEDS ORDERED: VANCOMYCIN IV 500 MG in SODIUM CHLORIDE 0.9% 250ML 250 ML IV SCH (13:00)
--- NOTE | 2018-07-08 16:46 | Infectious Disease Progress Nt ---
Progress Note Date of Service Jul 08, 2018. Subjective Pt evaluation today including: conversation w/ patient, physical exam, chart review, lab review, review of studies, conversation w/ service delivery consultant, review of inpatient medication list Denies any complaints today. Mental status back to baseline. Remains afebrile. Medications Current Inpatient Medications Medications (Trade) Dose Ordered Sig/Gelacio Route Start Time Stop Time Status Last Admin Dose Admin Allopurinol (Zyloprim Tab) 100 mg QAM PO 07/04/18 08:00 08/03/18 08:59 07/08/18 07:42 100 MG Amiodarone HCl (Cordarone Tab) 200 mg QAM PO 07/04/18 08:00 08/03/18 08:59 07/08/18 07:41 200 MG Aspirin (Ecotrin Tab) 81 mg QAM PO 07/04/18 08:00 08/03/18 08:59 07/08/18 07:43 81 MG Atorvastatin Calcium (Lipitor Tab) 40 mg HS PO 07/03/18 21:00 08/02/18 20:59 07/07/18 20:54 40 MG Clopidogrel Bisulfate (plAVix TAB) 75 mg QAM PO 07/04/18 08:00 08/03/18 08:59 07/08/18 07:41 75 MG Duloxetine HCl (Cymbalta Cap) 30 mg HS PO 07/03/18 21:00 08/02/18 20:59 07/07/18 20:52 30 MG Levothyroxine Sodium (Synthroid Tab) 75 mcg DAILYBB PO 07/04/18 06:30 08/03/18 06:59 07/08/18 05:11 75 MCG Lisinopril (Zestril Tab) 10 mg QAM PO 07/04/18 08:00 08/03/18 08:59 07/08/18 07:43 10 MG Senna/Docusate Sodium (Senokot S Tab) 2 tab BID PO 07/03/18 20:00 08/02/18 20:59 07/08/18 07:44 2 TAB Albuterol Sulfate (Ventolin 0.083% 2.5MG/3ML Neb) 2.5 mg Q6H PRN INH 07/03/18 14:00 08/02/18 13:59 Mirtazapine (Remeron Tab) 7.5 mg HS PO 07/03/18 21:00 08/02/18 20:59 07/07/18 20:53 7.5 MG Pantoprazole Sodium (Protonix Tab) 40 mg QAM PO 07/04/18 08:00 08/03/18 08:59 07/08/18 07:42 40 MG Sevelamer HCl (Renagel Tab) 1,600 mg TIDM PO 07/03/18 17:00 08/02/18 17:59 07/08/18 13:04 1,600 MG Miscellaneous Information (Order Awaiting Action) 1 ea QS N/A 07/03/18 16:00 08/02/18 15:59 Acetaminophen (Tylenol Tab) 650 mg Q4H PRN PO 07/03/18 14:00 08/02/18 13:59 07/07/18 19:44 650 MG Al Hydrox/Mg Hydrox/Simethicone (Maalox Max Susp) 15 ml Q4H PRN PO 07/03/18 14:00 08/02/18 13:59 Magnesium Hydroxide (Milk Of Magnesia Susp) 30 ml Q6H PRN PO 07/03/18 14:00 08/02/18 13:59 Polyethylene (Miralax Powder Packet) 17 gm DAILY PRN PO 07/03/18 14:00 08/02/18 13:59 Ondansetron HCl (Zofran Inj) 4 mg Q6H PRN IV 07/03/18 14:00 08/02/18 13:59 07/07/18 14:06 4 MG Heparin Sodium (Porcine) (Heparin Sq 5000 Unit/0.5ml) 5,000 unit Q12H SQ 07/03/18 21:00 08/02/18 20:59 07/08/18 07:50 5,000 UNIT Glucose (Glucose 40% Gel) 15-30 GRAMS 15 GRAMS... UD PRN PO 07/03/18 15:15 08/02/18 15:14 Glucose (Glucose Chew Tab) 4-8 Tablets 4 Tabl... UD PRN PO 07/03/18 15:15 08/02/18 15:14 Dextrose (Dextrose 50% 50ML Syringe) 25-50ML 25ML FOR ... UD PRN IV 07/03/18 15:15 08/02/18 15:14 Glucagon (Glucagon Inj) 1 mg UD PRN IM 07/03/18 15:15 08/02/18 15:14 Carbohydrates (Carbohydrates For Hypoglycemia) 15-30 GRAMS 15 grams if BSG 54-69... UD PRN PO 07/03/18 15:15 08/02/18 15:14 07/08/18 05:15 15 GM Vitamin B Complex/ Vit C/Folic Acid (Nephrocaps) 1 cap HS PO 07/04/18 21:00 08/03/18 08:59 Fentanyl (Duragesic Patch) 12 mcg Q72H TD 07/04/18 13:00 07/18/18 12:59 07/07/18 12:57 12 MCG Miscellaneous (Fentanyl Patch Remove & Waste) 1 ea Q72H N/A 07/04/18 12:59 08/03/18 12:58 07/07/18 12:39 1 EA Miscellaneous Information (Check Fentanyl Patch Placement) 1 ea QS N/A 07/04/18 16:00 08/03/18 15:59 07/08/18 15:13 1 EA Enteral Nutritional Formula (Boost Glucose Control) 1 can TIDM PO 07/04/18 17:00 08/03/18 16:59 07/07/18 17:36 1 CAN Insulin Aspart (novoLOG ASPART) SLIDING SCALE G... ACHS SC 07/04/18 16:30 08/03/18 16:29 07/06/18 17:33 1 UNITS Vancomycin HCl (Consult) 1 ea UD PRN N/A 07/04/18 15:15 08/03/18 15:14 Imipenem/ Cilastatin Sodium (Consult) 1 ea UD PRN N/A 07/06/18 16:15 08/05/18 16:14 Imipenem/ Cilastatin Sodium 200 mg/Dextrose 108 ml @ 108 mls/hr Q6H IV 07/07/18 12:00 07/17/18 11:59 07/08/18 13:02 108 MLS/HR Acetaminophen/ Hydrocodone Bitart (Belt 5/325 Tab) 1 tab Q4H PRN PO 07/07/18 10:00 07/18/18 15:14 Acetaminophen/ Hydrocodone Bitart (Belt 10/325 Tab) 1 tab Q6H PRN PO 07/07/18 10:00 9/9/18 09:59 07/08/18 05:11 1 TAB Vancomycin HCl 500 mg/Sodium Chloride 260 ml @ 125 mls/hr 1300 IV 07/08/18 13:00 07/08/18 17:00 07/08/18 13:09 125 MLS/HR Objective Vital Signs Date Time Temp Pulse Resp B/P (MAP) Pulse Ox O2 Delivery O2 Flow Rate FiO2 07/08/18 14:42 36.5 70 18 128/68 (88) 100 07/08/18 12:51 36.5 67 118/46 (70) 07/08/18 12:20 68 92/38 07/08/18 12:15 70 73/36 07/08/18 12:00 75 93/38 07/08/18 11:45 73 91/40 07/08/18 11:30 76 96/45 07/08/18 11:15 74 104/36 07/08/18 11:00 72 103/43 07/08/18 10:45 73 96/41 07/08/18 10:30 76 106/49 07/08/18 10:15 74 93/43 07/08/18 10:00 75 109/46 07/08/18 09:45 72 94/42 07/08/18 09:30 75 111/52 07/08/18 09:15 73 122/47 07/08/18 09:00 71 163/66 07/08/18 08:58 72 150/62 07/08/18 08:50 36.6 72 152/69 (96) 07/08/18 08:23 36.8 72 18 165/ (54) 100 Room Air 07/08/18 07:30 Room Air 07/07/18 22:50 37.0 80 20 168/68 (101) 99 Room Air 07/07/18 20:00 99 Room Air Physical Exam General Appearance: WD/WN, no apparent distress Eyes: normal inspection, EOMI, sclerae normal ENT: normal ENT inspection, pharynx normal Neck: supple, no adenopathy, thyroid normal, trachea midline Respiratory/Chest: chest non-tender, lungs clear, normal breath sounds, no respiratory distress Cardiovascular: regular rate, rhythm, no gallop, + systolic murmur Abdomen: normal bowel sounds, non tender, soft, no organomegaly Extremities: non-tender, no calf tenderness, normal capillary refill 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: alert, + disoriented Skin: normal color, warm/dry, no rash Lymphatic: no adenopathy Laboratory Results RUN DATE: 07/08/18 [facility] LAB PAGE 1 RUN TIME: 1243 Specimen Inquiry PATIENT: AM[id number] AGE/SX: 73/F ROOM: E410 REG : 07/03/[address]: Aida Chance MD : 1945 BED: 1 DIS : STATUS: ADM IN TLOC: SPEC #: [id number] MANNIE: 07/07/18 STATUS: RES REQ #: [id number] RECD: 07/07/18-[address]: Aida Chance MD SOURCE: URINE CATH ENTR: 07/07/18-[address] [facility] [address]: Octavia Alcala MD [facility]: Pino Smith M.D. Patterson, Jennifer., D.O. Roscoe, Brandon M. M.D. Tichansky, Christine L., D.O. ORDERED: CULTURE UR CATH Procedure Result Verified Site URINE CULTURE Preliminary 07/08/18-1243 NO GROWTH - LESS THAN 1,000 COLONIES/ML, Final Report to Follow. Last 24 Hours Test 07/07/18 16:59 07/07/18 20:21 07/08/18 00:03 07/08/18 05:12 Bedside Glucose 103 mg/dl 117 mg/dl 64 mg/dl White Blood Count 3.65 K/uL Red Blood Count 3.62 M/uL Hemoglobin 11.0 g/dL Hematocrit 34.8 % Mean Corpuscular Volume 96.1 fL Mean Corpuscular Hemoglobin 30.4 pg Mean Corpuscular Hemoglobin Concent 31.6 g/dl Platelet Count 121 K/uL Mean Platelet Volume 11.8 fL Neutrophils (%) (Auto) 60.4 % Lymphocytes (%) (Auto) 18.4 % Monocytes (%) (Auto) 7.4 % Eosinophils (%) (Auto) 13.2 % Basophils (%) (Auto) 0.3 % Neutrophils # (Auto) 2.21 K/uL Lymphocytes # (Auto) 0.67 K/uL Monocytes # (Auto) 0.27 K/uL Eosinophils # (Auto) 0.48 K/uL Basophils # (Auto) 0.01 K/uL RDW Standard Deviation 58.2 fL RDW Coefficient of Variation 16.4 % Immature Granulocyte % (Auto) 0.3 % Immature Granulocyte # (Auto) 0.01 K/uL Test 07/08/18 05:16 07/08/18 05:31 07/08/18 05:56 07/08/18 06:36 Bedside Glucose 84 mg/dl 70 mg/dl 104 mg/dl Sodium Level 124 mmol/L Potassium Level 4.7 mmol/L Chloride Level 90 mmol/L Carbon Dioxide Level 22 mmol/L Anion Gap 13.0 mmol/L Blood Urea Nitrogen 45 mg/dl Creatinine 5.24 mg/dl Est Creatinine Clear Calc Drug Dose 8.6 ml/min Estimated GFR () 8.7 Estimated GFR (Non- 7.5 BUN/Creatinine Ratio 8.6 Random Glucose 100 mg/dl Calcium Level 8.5 mg/dl Magnesium Level 2.2 mg/dl Random Vancomycin Level 17.8 mcg/ml Test 07/08/18 08:03 07/08/18 13:03 Bedside Glucose 99 mg/dl 80 mg/dl Assessment and Plan 73-year-old female with chronic sacral decubitus ulcer and recurrent urinary tract infections now with acute encephalopathy, not clear whether related to infection from decubitus or urinary tract or other source. Imipenem and vancomycin should provide adequate coverage. Will adjust once further information available. Will follow.
[2018-07-08] MEDS: ATORVASTATIN 40 MG TAB PO SCH (19:44)
[2018-07-08] MEDS: DULOXETINE (CYMBALTA) 30 MG CAP PO SCH (19:45)
[2018-07-08] MEDS: NEPHROCAPS PO SCH (19:46)
[2018-07-08] MEDS: MIRTAZAPINE TAB 15 MG TAB PO SCH (21:47)
[2018-07-09] MEDS: IMIPENEM-CILASTATIN 200 MG in DEXTROSE 5% 100ML 100 ML IV SCH ×3 (00:02→12:00)
[2018-07-09] MEDS: CHECK FENTANYL PATCH PLACEMENT SCH ×2 (00:09→07:22)
--- NOTE | 2018-07-09 01:28 | Hospitalist Progress Note ---
Hospitalist Progress Note Date of Service Jul 08, 2018. Subjective Pt evaluation today including: conversation w/ patient Improved in mental status today, able to carry on a conversation with me albeit at a slowed pace. Denies problems. Received HD today All Other Systems: Reviewed and Negative Objective Vital Signs Date Time Temp Pulse Resp B/P (MAP) Pulse Ox O2 Delivery O2 Flow Rate FiO2 07/08/18 23:08 37.3 69 18 149/61 (90) 98 Room Air 07/08/18 20:00 Room Air 07/08/18 14:42 36.5 70 18 128/68 (88) 100 07/08/18 12:51 36.5 67 118/46 (70) 07/08/18 12:20 68 92/38 07/08/18 12:15 70 73/36 07/08/18 12:00 75 93/38 07/08/18 11:45 73 91/40 07/08/18 11:30 76 96/45 07/08/18 11:15 74 104/36 07/08/18 11:00 72 103/43 07/08/18 10:45 73 96/41 07/08/18 10:30 76 106/49 07/08/18 10:15 74 93/43 07/08/18 10:00 75 109/46 07/08/18 09:45 72 94/42 07/08/18 09:30 75 111/52 07/08/18 09:15 73 122/47 07/08/18 09:00 71 163/66 07/08/18 08:58 72 150/62 07/08/18 08:50 36.6 72 152/69 (96) 07/08/18 08:23 36.8 72 18 165/ (54) 100 Room Air 07/08/18 07:30 Room Air Physical Exam General Appearance: no apparent distress Eyes: normal inspection, sclerae normal ENT: hearing grossly normal Neck: trachea midline Respiratory/Chest: normal breath sounds, no respiratory distress, no accessory muscle use Cardiovascular: regular rate, rhythm, no edema, + systolic murmur Abdomen: normal bowel sounds, non tender, soft Extremities: + pertinent finding (left AKA) 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: alert, + disoriented Skin: normal color, warm/dry, no rash Laboratory Results Last 24 Hours Test 07/08/18 05:12 07/08/18 05:16 8/27/18 05:31 07/08/18 05:56 Bedside Glucose 64 mg/dl 84 mg/dl 70 mg/dl 104 mg/dl Test 07/08/18 06:36 07/08/18 08:03 07/08/18 13:03 07/08/18 16:30 Sodium Level 124 mmol/L Potassium Level 4.7 mmol/L Chloride Level 90 mmol/L Carbon Dioxide Level 22 mmol/L Anion Gap 13.0 mmol/L Blood Urea Nitrogen 45 mg/dl Creatinine 5.24 mg/dl Est Creatinine Clear Calc Drug Dose 8.6 ml/min Estimated GFR () 8.7 Estimated GFR (Non- 7.5 BUN/Creatinine Ratio 8.6 Random Glucose 100 mg/dl Calcium Level 8.5 mg/dl Magnesium Level 2.2 mg/dl Random Vancomycin Level 17.8 mcg/ml Bedside Glucose 99 mg/dl 80 mg/dl 82 mg/dl Test 07/08/18 20:57 07/09/18 01:07 Bedside Glucose 76 mg/dl 85 mg/dl Assessment and Plan This patient is a 73yo female with a history of ESRD on HD, multiple hospitalizations for recurrent UTI and metabolic encephalopathy, suspected vascular dementia, DM 2, CAD, chronic pain syndrome on chronic opioids, COPD, PAF not on anticoagulation due to history of multiple hemorrhages, chronic diastolic CHF, history of CVA, and hypothyroidism, who presents with altered mental status. 1. Acute metabolic encephalopathy - I suspect that this could be due to infection of the sacral decubitus ulcer versus UTI- her mental status is still waxing and waning and perhaps this is from some element of toxic encephalopathy from opioid use. Overall, she is improved since admission She also has a history of recurrent Pseudomonas UTIs in the past which have been resistant to aztreonam. She was initially on aztreonam and vancomycin for 3 days without much improvement. Switched to imipenem on 07/07 UA cathed sample obtained is grossly abnormal, however Ur cx no growth but taken 24 hours after given Imipenem CT head notable for chronic appearing lacunar infarcts. -Continue imipenem and vancomycin and ID recommends abx for 1 week total -Infectious disease consultation placed for imipenem management-appreciate their input -Follow blood cultures -Continue wound care-appreciate wound RN input-question if needs debridement of ulcer 2. Suspected underlying vascular dementia -does have some MCI as per previous hospitalist notes who knew her before I believe she has #1 in the setting of a chronic dementia process - probably vascular in origin. -Supportive care -Continue antiplatelets for history of CVA 3. sacral decubitus ulcer, unstageable at this time - I believe the ulcer is infected and at least one of the causes of her altered MS as above. CT pelvis w/o osteomyelitis or abscess. Received 3 days of aztreonam and now on day #5 of vancomycin IV, and imipenem day #3 Blood cx's continue to be negative. Wound care nurse & provider to see. May need debridement. 4. severe protein calorie malnutrition - she has lost over 100 pounds since November of 2016. Her albumin is <2. She has declined both physically and cognitively over time. Palliative care discussions are appropriate and she has had them in the past and actually filled out a POLST form with palliative care in April which is scanned into the chart-DNR/DNI, limited interventions, and a trial of antibiotics and artificial nutrition with comfort as the goal. Oral intake by report is quite poor. Not a good candidate for appetite stimulant. 5. ESRD on HD - M/W/F - appreciate nephrology assistance, electrolytes and volume status acceptable at this time -Follow daily BMP. -Continues on lisinopril 6. history of T2DM - at this time she is having hypoglycemia likely due to stress of #3. Last hemoglobin a1c in April 2018 was 4.5%. Her DM has resolved due to extensive weight loss. Despite D5w at 20cc/hr to maintain normoglycemia she had persistently low glucoses. A.m. cortisol level is normal, TSH is normal. She was then changed to D10W at 20cc/hr and glucose has improved. The D10W has since been discontinued and glucose checks have been acceptable 7. DVT proph - heparin sc. 8. h/o CAD - noted; no ischemic symptoms at this time. 9. chronic pain syndrome - cont fentanyl patch and will increase the dose of [place] to 10 mg for severe pain and she did not have her pain controlled with the 5 mg dose 10. h/o COPD - not in exacerbation at this time. 11. hypothyroidism - continue synthroid. TSH normal here 12. h/o PAF - noted. Remains in sinus rhythm -Continue amiodarone -Is not on anticoagulation due to history of multiple hemorrhages 13. chronic diastolic CHF - compensated. Disposition-prognosis is very poor, but she may turnaround with transition in antibiotics as above I discussed her case with the pt's sister, Feli, on 07/06 who has been named as her surrogate decision maker on her POLST form. She is ready to make decisions if the patient does not improve in the next several days as to whether to continue treatment or de-escalate care move towards comfort measures POLST form reviewed as above
[2018-07-09] MEDS: LEVOTHYROXINE 75 MCG TAB PO SCH (06:06)
[2018-07-09] MEDS: PANTOprazole SOD 40 MG TAB PO SCH (07:19)
[2018-07-09] MEDS: SEVELAMER HYDROCH 800 MG TAB PO SCH ×2 (07:20→12:00)
[2018-07-09] MEDS: DOCUSATE SODIUM/SENNA 50/8.6MG TAB PO SCH (07:20)
[2018-07-09] MEDS: CLOPIDOGREL BISULFATE 75 MG TAB PO SCH (07:20)
[2018-07-09] MEDS: ALLOPURINOL 100 MG TAB PO SCH (07:20)
[2018-07-09] MEDS: LISINOPRIL 10 MG TAB PO SCH (07:21)
[2018-07-09] MEDS: AMIODARONE 200 MG TAB PO SCH (07:21)
[2018-07-09] MEDS: ASPIRIN 81 MG ECTAB PO SCH (07:21)
[2018-07-09] MEDS: BOOST GLUCOSE CONTROL VANILLA PO SCH ×2 (07:22→12:00)
[2018-07-09 07:23] VITALS: BP 148/71; PULSE 73; TEMP 37.2; O2SAT 98
[2018-07-09] MEDS: HEPARIN SOD 5000 UNIT/0.5 ML CARP SQ SCH (07:28)
[2018-07-09] MEDS: INSULIN ASPART 100 UNITS/ML 3 ML PEN SC SCH ×2 (08:01→12:03)
[2018-07-09] MEDS ORDERED: [UNRECOGNIZED DRUG - CODE] IV (12:03)
[2018-07-09] MEDS ORDERED: IMIP1INJ IV (12:03)
[2018-07-09] MEDS ORDERED: DRGTP12 TD (12:04)
[2018-07-09] MEDS ORDERED: HYDR-4079 PO (12:08)
[2018-07-09] MEDS ORDERED: HYDR-5688 PO (12:08)
--- NOTE | 2018-07-09 12:14 | Discharge Instructions ---
Discharge Instructions Date of Service Jul 09, 2018. Admission Reason for Admission: Altered Mental Status,Esrd Discharge Discharge Diagnosis / Problem: Acute metabolic encephalopathy, sacral decubitus ulcer, UTI Discharge Goals Goal(s): Improve disease control, Diagnostic testing, Therapeutic intervention Activity Recommendations Activity Level: Assistance Required Therapies: Physical Therapy, Occupational Therapy Shower/Bathe: no limitations . Additional Information Patient informed of condition: Yes Advance Directives: Yes DNR: Yes Level of Care: Skilled Communicable Disease: No Prognosis: Improving Oxygen at (LPM): NA Palomo Catheter: No Instructions / Follow-Up Instructions / Follow-Up This patient is a 73yo female with a history of ESRD on HD, multiple hospitalizations for recurrent UTI and metabolic encephalopathy, suspected vascular dementia, DM 2, CAD, chronic pain syndrome on chronic opioids, COPD, PAF not on anticoagulation due to history of multiple hemorrhages, chronic diastolic CHF, history of CVA, and hypothyroidism, who presents with altered mental status. 1. Acute metabolic encephalopathy - I suspect that this could be due to infection of the sacral decubitus ulcer versus UTI- her mental status is still waxing and waning but is overall much improved. Perhaps this is from some element of toxic encephalopathy from opioid use. She also has a history of recurrent Pseudomonas UTIs in the past which have been resistant to aztreonam. She was initially on aztreonam and vancomycin for 3 days without much improvement. Switched to imipenem on 07/07 and now greatly improved UA cathed sample obtained is grossly abnormal, however Ur cx no growth but taken 24 hours after given Imipenem CT head notable for chronic appearing lacunar infarcts. -Continue imipenem and vancomycin and ID recommends abx for 1 week total-needs 2 more days of vancomycin and 4 more days of imipenem-new peripheral IV placed on 07/09 at the hospital -Infectious disease consultation placed for imipenem management-appreciate their input -Follow blood cultures but no growth to date -Continue wound care-appreciate wound RN input-question if needs debridement of ulcer-needs follow-up with the wound clinic and continue wound care with Aquacel and Tegaderm 2. Suspected underlying vascular dementia -does have some MCI as per previous hospitalist notes who knew her before I believe she has #1 in the setting of a chronic dementia process - probably vascular in origin. -Supportive care -Continue antiplatelets for history of CVA 3. sacral decubitus ulcer, unstageable at this time - I believe the ulcer is infected and at least one of the causes of her altered MS as above. CT pelvis w/o osteomyelitis or abscess. Received 3 days of aztreonam and now on day #6/7 of vancomycin IV, and imipenem day #4/7 Blood cx's continue to be negative. Follow-up with wound care clinic as above 4. severe protein calorie malnutrition - she has lost over 100 pounds since November of 2016. Her albumin is <2. She has declined both physically and cognitively over time. Palliative care discussions are appropriate and she has had them in the past and actually filled out a POLST form with palliative care in April which is scanned into the chart-DNR/DNI, limited interventions, and a trial of antibiotics and artificial nutrition with comfort as the goal. Oral intake by report is quite poor. Not a good candidate for appetite stimulant. 5. ESRD on HD - M/W/F - appreciate nephrology assistance, electrolytes and volume status acceptable at this time. Last dialysis session was Sunday 07/08 -Follow daily BMP. -Continues on lisinopril 6. history of T2DM - at this time she is having hypoglycemia likely due to stress of #3. Last hemoglobin a1c in April 2018 was 4.5%. Her DM has resolved due to extensive weight loss. Despite D5w at 20cc/hr to maintain normoglycemia she had persistently low glucoses. A.m. cortisol level is normal, TSH is normal. She was then changed to D10W at 20cc/hr and glucose has improved. The D10W has since been discontinued and glucose checks have been acceptable 7. DVT proph - heparin sc. 8. h/o CAD - noted; no ischemic symptoms at this time. 9. chronic pain syndrome - cont fentanyl patch and will increase the dose of [place] to 10 mg for severe pain and she did not have her pain controlled with the 5 mg dose 10. h/o COPD - not in exacerbation at this time. 11. hypothyroidism - continue synthroid. TSH normal here 12. h/o PAF - noted. Remains in sinus rhythm -Continue amiodarone -Is not on anticoagulation due to history of multiple hemorrhages 13. chronic diastolic CHF - compensated. Disposition-prognosis is very poor, but she may turnaround with transition in antibiotics as above I discussed her case with the pt's sister, Feli, on 07/06 who has been named as her surrogate decision maker on her POLST form. She is ready to make decisions if the patient is not able to. POLST form reviewed as above Current Hospital Diet Patient's current hospital diet: Renal Diet Discharge Diet Recommended Diet: Renal Diet Procedures Procedures Performed: CT head Chest x-ray CT pelvis Pending Studies Studies pending at discharge: no Physician Orders On Transfer Special Precautions: Frequent repositioning to prevent worsening of decubitus ulcers Dressing Changes: Daily dressing changes on sacral decub IV Therapy: Imipenem and vancomycin as above Vital Signs: Daily Weigh: Daily POLST Discussion: with POLST completion Laboratory Results Last 24 Hours Test 07/08/18 13:03 07/08/18 16:30 07/08/18 20:57 07/09/18 01:07 Bedside Glucose 80 mg/dl 82 mg/dl 76 mg/dl 85 mg/dl Test 07/09/18 07:45 07/09/18 11:42 Bedside Glucose 89 mg/dl 163 mg/dl Hemoglobin A1c Test 04/28/18 06:11 Range/Units Estimated Average Glucose 82 mg/dl Hemoglobin A1c 4.5 4.5-5.6 % Medical Emergencies . Who to Call and When: Medical Emergencies: If at any time you feel your situation is an emergency, please call 911 immediately. . Non-Emergent Contact Non-Emergency issues call your: Primary Care Provider Call Non-Emergent contact if: temperature is above 101, your pain is not controlled, your pain is worsening, your pain is unusual for you, your pain is concerning you, wound has increased drainage, wound has increased redness, wound has increased pain, you have any medication questions . . "Provider Documentation" section prepared by Aida Chance. . Core Measure Problem Core Measures: None [place] Drug Monitoring Program Search Results: patient reviewed within database (Attempted to review but the website was down)
--- NOTE | 2018-07-09 12:19 | Discharge Summary ---
Discharge Summary Date of Service Jul 09, 2018. Discharge Summary Admission Date: Jul 03, 2018 at 14:08 Discharge Date: Jul 09, 2018 Discharge Disposition: half-way facility Principal Diagnosis: Acute metabolic encephalopathy, sacral decubitus ulcer infection, UTI Problems/Secondary Diagnoses: ESRD on HD H/o recurrent UTI and metabolic encephalopathy suspected vascular dementia DM 2 CAD chronic pain syndrome on chronic opioids COPD PAF not on anticoagulation due to history of multiple hemorrhages chronic diastolic CHF history of CVA hypothyroidism toxic encephalopathy from opioid use sacral decubitus ulcer, unstageable severe protein calorie malnutrition History of T2DM with hypoglycemia Chronic diastolic CHF Immunizations: Have You Had Influenza Vaccine: Yes Influenza Vaccine Date: Nov 22, 2012 History of Tetanus Vaccine?: UTD Tetanus Immunization Date: Nov 25, 2012 History of Pneumococcal: Yes Pneumococcal Date: Nov 25, 2012 History of Hepatitis B Vaccine: No Procedures: CT head CT pelvis Chest x-ray Consultations: Nephrology Medication Reconciliation New Medications: Imipenem-Cilastatin (Imipenem/Cilastatin) 1 Inj Inj 200 MG IV Q6H for 4 Days Last dose on 07/12/18 Vancomycin HCl (Vancomycin HCl) 500 Mg Inj 500 MG IV UD for 2 Days To be given with dialysis if random level < 17 on Sun07/10/18 Hydrocodone/Acetaminophen 10MG/325MG ([place] 10MG/325MG) Tab 1 TAB PO Q6H PRN for severe pain scale 6-10 for 3 Days, #12 TAB PRN PAIN Hydrocodone/Acetaminophen 5MG/325MG ([place] 5MG/325MG) Tab 1 TAB PO Q4H PRN for pain scale 1-5 for 3 Days, #12 TAB PRN PAIN Continued Medications: Acetaminophen (Tylenol) 650 Mg Supp 650 MG RE Q6H PRN for Pain or Fever NEEDED FOR PAIN RATED 1-5 ON A SCALE OF "0-10" OR FOR ELEVATED TEMPERATURE GREATER THAN 101 F. DO NOT EXCEED 3 GM APAP/24 HOURS. Acetaminophen Tab (Tylenol) 325 Mg Tab 650 MG PO Q6H PRN for Pain or Fever, TAB NEEDED FOR PAIN RATED 1-5 ON A SCALE OF "0-10" OR FOR ELEVATED TEMPERATURE GREATER THAN 101 F. DO NOT EXCEED 3 GM APAP/24 HOURS. Acetaminophen (Sb Non-Aspirin Extra Stre) 500 Mg Tab 1000 MG PO BID, #60 TAB Albuterol Sulfate (Albuterol Sulfate) 1.25 Mg/3 Ml Neb 1 VIAL NEB Q6H PRN for SOB/Wheezing, ML Allopurinol (Zyloprim) 100 Mg Tab 100 MG PO QAM, TAB EVERY SUNDAY,SUNDAY AND SUNDAY ADMINISTER AT 0430 HOURS ALL OTHER DAYS ADMINISTER AT 0900 HOURS Amiodarone Hcl (Cordarone) 200 Mg Tab 200 MG PO QAM, TAB EVERY SUNDAY,SUNDAY AND SUNDAY ADMINISTER AT 0430 HOURS ALL OTHER DAYS ADMINISTER AT 0900 HOURS Aspirin (Aspirin 81) 81 Mg Tab 81 MG PO QAM EVERY SUNDAY,SUNDAY AND SUNDAY ADMINISTER AT 0430 HOURS ALL OTHER DAYS ADMINISTER AT 0900 HOURS Atorvastatin (Lipitor) 40 Mg Tab 40 MG PO HS, TAB Bisacodyl (Bisacodyl Ec) 5 Mg Tab 5 MG PO Q2D Bisacodyl (Dulcolax) 10 Mg Sup 1 SUPP DE UD PRN for Constipation, SUP NEEDED FOR NO BOWEL MOVEMENT IN 3 DAYS Clopidogrel (Plavix) 75 Mg Tab 75 MG PO QAM, TAB EVERY SUNDAY,SUNDAY AND SUNDAY ADMINISTER AT 0430 HOURS ALL OTHER DAYS ADMINISTER AT 0900 HOURS Dextrose (Diabetic Use) (Insta-Glucose) 77.4 % Gel 1 DOSE PO UD PRN for Hypoglycemia Protocol NEEDED FOR BLOOD GLUCOSE LESS THAN 60 AND/OR SYMPTOMATIC HYPOGLYCEMIA. MUST BE RESPONSIVE AND ABLE TO SAFELY SWALLOW. Duloxetine HCl (Cymbalta) 30 Mg Cap 30 MG PO HS, CAP Fentanyl (Fentanyl) 12 Mcg Tdsy 12 MCG TD Q72H for 30 Days Glucagon (Glucagon Emergency Kit) 1 Mg Kit 1 MG IM UD PRN for Hypoglycemia Treatment NEEDED FOR BLOOD GLUCOSE LESS THN 60 AND/OR SYMPTOMATIC/UNRESPONSIVE HYPOGLYCEMIA. MAY REPEAT DOSE IN 15 MINUTES IF NEEDED. Levothyroxine Sodium (Synthroid) 75 Mcg Tab 75 MCG PO QAM EVERY SUNDAY,SUNDAY AND SUNDAY ADMINISTER AT 0430 HOURS ALL OTHER DAYS ADMINISTER AT 0530 HOURS Lisinopril (Zestril) 10 Mg Tab 10 MG PO QAM for 30 Days, TAB Magnesium Citrate (Citrate Of Megnesia) 1 Italia Italia 300 MG PO UD PRN for Severe Constipation Mineral Oil (Fleet Oil) 1 Delmy Delmy 1 EA DE UD PRN for Constipation IF AFTER 8 HOURS NO RESULTS FROM DULCOLAX SUPPOSITORY GIVE ENEMA IF NO RESULTS FROM ENEMA NOTIFY Mineral Oil (Fleet Oil) 1 Delmy Delmy 1 EA DE UD PRN for Severe Constipation Mirtazapine (Mirtazapine) 7.5 Mg Tab 7.5 MG PO HS Multiple Vitamins W/ Minerals (Preservision Areds) 1 Cap Cap 1 CAP PO DAILY Nutritional Supplements (Boost) 1 Liq Liq 1 CAN PO BIDM for 30 Days Omeprazole (Prilosec) 20 Mg Capcr 40 MG PO QAM EVERY SUNDAY,SUNDAY AND SUNDAY ADMINISTER AT 0430 HOURS ALL OTHER DAYS ADMINISTER AT 0730 HOURS Ondansetron Hcl (Zofran) 4 Mg Tab 4 MG PO Q6H PRN for Nausea or Vomiting, TAB Polyethylene Glycol 3350 (Miralax) 1 Pow Pow 17 GM PO DAILY HOLD IF HAVING LOOSE STOOLS Senna/Docusate Sod (Senokot S) 1 Tab Tab 2 TABS PO BID, TAB Sevelamer Carbonate (Renvela) 800 Mg Tab 1600 MG PO TIDM EVERY SUNDAY,SUNDAY AND SUNDAY ADMINISTER AT 0430, 1200 AND 1700 HOURS ALL OTHER DAYS ADMINISTER AT 0730, 1200 AND 1700 HOURS Sevelamer Carbonate (Renvela) 800 Mg Tab 800 MG PO UD PRN for CKD, TAB RELATED TO END STAGE RENAL DISEASE Umeclidinium Floyd (Incruse Ellipta) 62.5 Mcg/Inh Inh 1 PUFF INH QAM EVERY SUNDAY,SUNDAY AND SUNDAY ADMINISTER AT 0430 HOURS ALL OTHER DAYS ADMINISTER AT 0900 HOURS Vitamin B Cmplx/Vitc/Folic Ac (Nephrocaps) Cap 1 CAP PO DAILY, CAP [2 Sky/cc Supplement] () 150 ML PO QID EVERY SUNDAY,SUNDAY AND SUNDAY ADMINISTER AT 0400, 1200, 1600 and 2100 HOURS ALL OTHER DAYS ADMINISTER AT 0900, 1200, 1600 and 2100 HOURS [liquid protein] () 1 DOSE PO TID EVERY SUNDAY,SUNDAY AND SUNDAY ADMINISTER AT 0430, 1500 AND 2000 HOURS ALL OTHER DAYS ADMINISTER AT 1000, 1500 AND 2000 HOURS Discontinued Medications: Guaifenesin (Guaifenesin) Unknown Strength Syp 10 ML PO Q4H PRN for Cough/Congestion Discharge Exam Patient doing well and conversive on the day of discharge. She denies any problems. No chest pain or shortness of breath, no abdominal pain. She says she is feeling "better." Physical Exam General Appearance: no apparent distress Eyes: normal inspection, sclerae normal ENT: hearing grossly normal Neck: trachea midline Respiratory/Chest: normal breath sounds, no respiratory distress, no accessory muscle use Cardiovascular: regular rate, rhythm, no edema, + systolic murmur Abdomen: normal bowel sounds, non tender, soft Extremities: + pertinent finding (left AKA) 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: alert, + disoriented Skin: normal color, warm/dry, no rash Review of Systems: Constitutional: No fever, No chills Eyes: No problem reported ENT: No problem reported Respiratory: No problem reported Cardiovascular: No problem reported Abdomen: No problem reported Musculoskeletal: No problem reported Genitourinary - Female: No problem reported Neurologic: No problem reported Psychiatric: No problem reported Endocrine: No problem reported Hematologic / Lymphatic: No problem reported Integumentary: No problem reported Hospital Course This patient is a 73yo female with a history of ESRD on HD, multiple hospitalizations for recurrent UTI and metabolic encephalopathy, suspected vascular dementia, DM 2, CAD, chronic pain syndrome on chronic opioids, COPD, PAF not on anticoagulation due to history of multiple hemorrhages, chronic diastolic CHF, history of CVA, and hypothyroidism, who presents with altered mental status. 1. Acute metabolic encephalopathy - I suspect that this could be due to infection of the sacral decubitus ulcer versus UTI- her mental status is still waxing and waning but is overall much improved. Perhaps this is from some element of toxic encephalopathy from opioid use. She also has a history of recurrent Pseudomonas UTIs in the past which have been resistant to aztreonam. She was initially on aztreonam and vancomycin for 3 days without much improvement. Switched to imipenem on 07/07 and now greatly improved UA cathed sample obtained is grossly abnormal, however Ur cx no growth but taken 24 hours after given Imipenem CT head notable for chronic appearing lacunar infarcts. -Continue imipenem and vancomycin and ID recommends abx for 1 week total-needs 2 more days of vancomycin and 4 more days of imipenem-new peripheral IV placed on 07/09 at the hospital -Infectious disease consultation placed for imipenem management-appreciate their input -Follow blood cultures but no growth to date -Continue wound care-appreciate wound RN input-question if needs debridement of ulcer-needs follow-up with the wound clinic and continue wound care with Aquacel and Tegaderm 2. Suspected underlying vascular dementia -does have some MCI as per previous hospitalist notes who knew her before I believe she has #1 in the setting of a chronic dementia process - probably vascular in origin. -Supportive care -Continue antiplatelets for history of CVA 3. sacral decubitus ulcer, unstageable at this time - I believe the ulcer is infected and at least one of the causes of her altered MS as above. CT pelvis w/o osteomyelitis or abscess. Received 3 days of aztreonam and now on day #6/7 of vancomycin IV, and imipenem day #4/7 Blood cx's continue to be negative. Follow-up with wound care clinic as above 4. severe protein calorie malnutrition - she has lost over 100 pounds since November of 2016. Her albumin is <2. She has declined both physically and cognitively over time. Palliative care discussions are appropriate and she has had them in the past and actually filled out a POLST form with palliative care in April which is scanned into the chart-DNR/DNI, limited interventions, and a trial of antibiotics and artificial nutrition with comfort as the goal. Oral intake by report is quite poor. Not a good candidate for appetite stimulant. 5. ESRD on HD - M/W/F - appreciate nephrology assistance, electrolytes and volume status acceptable at this time. Last dialysis session was Sunday 07/08 -Follow daily BMP. -Continues on lisinopril 6. history of T2DM - at this time she is having hypoglycemia likely due to stress of #3. Last hemoglobin a1c in April 2018 was 4.5%. Her DM has resolved due to extensive weight loss. Despite D5w at 20cc/hr to maintain normoglycemia she had persistently low glucoses. A.m. cortisol level is normal, TSH is normal. She was then changed to D10W at 20cc/hr and glucose has improved. The D10W has since been discontinued and glucose checks have been acceptable 7. DVT proph - heparin sc. 8. h/o CAD - noted; no ischemic symptoms at this time. 9. chronic pain syndrome - cont fentanyl patch and will increase the dose of [place] to 10 mg for severe pain and she did not have her pain controlled with the 5 mg dose 10. h/o COPD - not in exacerbation at this time. 11. hypothyroidism - continue synthroid. TSH normal here 12. h/o PAF - noted. Remains in sinus rhythm -Continue amiodarone -Is not on anticoagulation due to history of multiple hemorrhages 13. chronic diastolic CHF - compensated. Disposition-prognosis is very poor, but she may turnaround with transition in antibiotics as above I discussed her case with the pt's sister, Feli, on 07/06 who has been named as her surrogate decision maker on her POLST form. She is ready to make decisions if the patient is not able to. POLST form reviewed as above Total Time Spent: Greater than 30 minutes This includes examination of the patient, discharge planning, medication reconciliation, and communication with other providers. Discharge Instructions Please refer to the electronic Patient Visit Report (Discharge Instructions) for additional information. Follow-Up With PCP within 1 week Additional Copies To Felecia Michael
[2018-07-09 13:48] VITALS: BP 148/71; PULSE 73; TEMP 37.2; O2SAT 98
--- NOTE | 2018-07-09 16:17 | Nephrology Progress Note ---
Nephrology Progress Note Date of Service: Jul 09, 2018. Subjective Patient with end-stage renal disease complicated by altered mental status. She feels well, denies any shortness of breath. She was eating breakfast at the time of my visit Objective Date Time Temp Pulse Resp B/P (MAP) Pulse Ox O2 Delivery O2 Flow Rate FiO2 07/09/18 13:48 37.2 73 19 98 Room Air 07/09/18 07:30 Room Air 07/09/18 07:23 37.2 73 19 148/71 (96) 98 Room Air 07/09/18 00:00 Room Air 07/08/18 23:08 37.3 69 18 149/61 (90) 98 Room Air 07/08/18 20:00 Room Air Physical Exam: General-comfortable lying in bed no respiratory distress Eyes-pupils equal and reactive to light ENT-normal on inspection Neck-supple, trachea is midline Lungs-bilateral crackles Heart-S1 and S2 regular rate and rhythm Abdomen-soft nondistended bowel sounds present Extremities-left amputation, no edema in the right leg Neuro-oriented 2, tremulous Medications were reviewed Last 24 Hours Test 07/08/18 16:30 07/08/18 20:57 07/09/18 01:07 07/09/18 07:45 Bedside Glucose 82 mg/dl 76 mg/dl 85 mg/dl 89 mg/dl Test 07/09/18 11:42 Bedside Glucose 163 mg/dl Assessment & Plan 73 y/o F w/ ESRD, CAD, PVD s/p amputation, DM, HFpEF admitted from [place] w/ altered MS on 07/03. volume status and chemsitries ok; MS not improved though ESRD Her volume status, electrolytes, anemia are all acceptable at this time; she tolerated dialysis well yesterday. Next dialysis will be tomorrow as an outpatient Anemia of chronic disease -Monitor at outpatient dialysis unit and DENIS as needed Altered MS -Improved with dialysis.
== END 2018-07-09 14:40 | DRG 70 ==
LOC: EDBD 10:29 → C.EDA 10:30 → C.4E 14:08 → ENRESERV 14:22
PROVIDERS: ADMIT Internal Medicine; ATTEND Family Medicine
PROC: 5A1D70Z Performance of Urinary Filtration, Intermittent, Less than 6 Hours Per Day (ICD-10-PCS; principal; 2018-07-05)
DX: G93.41 Metabolic encephalopathy (principal); E43 Unspecified severe protein-calorie malnutrition; G92 Toxic encephalopathy; I25.10 Atherosclerotic heart disease of native coronary artery without angina pectoris; N18.6 End stage renal disease; N39.0 Urinary tract infection, site not specified; I13.2 Hypertensive heart and chronic kidney disease with heart failure and with stage 5 chronic kidney disease, or end stage renal disease; J44.9 Chronic obstructive pulmonary disease, unspecified; F32.9 Major depressive disorder, single episode, unspecified; E11.9 Type 2 diabetes mellitus without complications; Z99.2 Dependence on renal dialysis; I50.32 Chronic diastolic (congestive) heart failure; M10.9 Gout, unspecified; I48.0 Paroxysmal atrial fibrillation; T40.2X5A Adverse effect of other opioids, initial encounter; L89.159 Pressure ulcer of sacral region, unspecified stage; Z87.891 Personal history of nicotine dependence; Z88.1 Allergy status to other antibiotic agents; Z88.6 Allergy status to analgesic agent; F01.50 Vascular dementia, unspecified severity, without behavioral disturbance, psychotic disturbance, mood disturbance, and anxiety; Z79.891 Long term (current) use of opiate analgesic; Y92.129 Unspecified place in nursing home as the place of occurrence of the external cause; D64.9 Anemia, unspecified; G89.4 Chronic pain syndrome